=== PATIENT | female | born 1970 | race Caucasian/White ===

== ENCOUNTER 2020-02-24 11:27 | Inpatient (IN) | payer OTHER, SELFPAY ==
[2020-02-24] MEDS ORDERED: SODIUM CHLORIDE 0.9% 1000 ML IV SOLN IV ONE (12:02)
[2020-02-24] MEDS ORDERED: ACETAMINOPHEN 325 MG TAB PO ONE (12:03)
[2020-02-24] MEDS ORDERED: ACETAMINOPHEN 325 MG TAB ONE (12:04)
--- NOTE | 2020-02-24 12:05 | Event Note ---
ED Screening Note ED Screening Note: Patient presents for cough, fever, chest pain, shortness of breath, nausea, vomiting, diarrhea Symptoms have been ongoing for 2 to 3 weeks This initial assessment/diagnostic orders/clinical plan/treatment(s) is/are subject to change based on patients health status, clinical progression and re- assessment by fellow clinical providers in the ED. Further treatment and workup at subsequent clinical providers discretion. Patient/guardian urged not to elope from the ED as their condition may be serious if not clinically assessed and managed. Initial orders include: Febrile, tachycardic, hypoxic at 94% Sepsis and Covid order set placed Contact/droplet precautions
[2020-02-24] MEDS ORDERED: AZITHROMYCIN 500 MG in SODIUM CHLORIDE 0.9% 250ML 250 ML IV ONE (12:15)
[2020-02-24] MEDS ORDERED: methylPREDNISolone Sod Succinate 125 MG/2 ML INJ IV ONE (12:15)
[2020-02-24] MEDS ORDERED: cefTRIAXone/NS 1 GM/50 ML 1 GM/50 ML BAG IV ONE (12:15)
[2020-02-24 12:22] LABS: Basophils % (Auto) 0.3 % (0.0-1.8); Hematocrit 34.5 % (30.3-42.9); Lymphocytes # (Auto) 1.3 K/mm3 (1.2-5.4); Lymphocytes % (Auto) 18.8 % (13.4-35.0); Mean Corpuscular HGB Conc 35 % (30-34); Mean Corpuscular Volume 89 fl (79-97); Monocytes # (Auto) 0.3 K/mm3 (0.0-0.8); Monocytes % (Auto) 4.3 % (0.0-7.3); Platelet Count 190 K/mm3 (140-440); Red Blood Count 3.88 M/mm3 (3.65-5.03); Red Cell Distribution Width 13.7 % (13.2-15.2)
[2020-02-24 12:44] LABS: Alanine Aminotransferase 38 units/L (7-56); Blood Urea Nitrogen 13 mg/dL (7-17); Calcium 9.3 mg/dL (8.4-10.2); Hemolysis Index 2
[2020-02-24 12:48] LABS: BUN/Creatinine Ratio 22
--- NOTE | 2020-02-24 13:29 | XRay Report ---
CHEST PA AND LATERAL VIEWS INDICATION: fever, cough, SOB. COMPARISON: None. FINDINGS: Support devices: None. Heart: Within normal limits. Lungs/Pleura: There are somewhat patchy bilateral pulmonary opacities with relative sparing of the ap ices. No pleural abnormality. IMPRESSION: 1. Patchy bilateral pulmonary opacities are concerning for infection/pneumonia. Atypical/viral etiolo gies should be considered. Signer Name: Farooq Cavazos MD Signed: 02/24/2020 1:24 PM Workstation Name: [id number]
--- NOTE | 2020-02-24 15:13 | History and Physical Report ---
History of Present Illness Chief complaint: I cannot breathe History of present illness: 50 YO Female with Obesity Hypoventilation Syndrome presents to ED for evaluation. Patient states that she has "been feeling sick" for the past 2 weeks with persistent symptoms over the same timeframe. Patient was seen and evaluated by her primary care physician and treated with oral antibiotics for outpatient pneumonia. Patient states that she has experienced persistent symptoms in spite of of compliance with medication. Patient reports fever, dry cough, shortness of breath, decreased exercise tolerance, nausea, multiple episodes of vomiting, multiple loose stools, loss of sense of smell, loss of sense of taste, fatigue, malaise, body aches. Patient transported to [facility] via private vehicle for further care and evaluation of the aforementioned symptoms. Patient seen and evaluated in the emergency department. All lab and imaging studies reviewed. Patient found to have a fever to 102.1 F, as well as a pulse oximetry of 88% with exertion on room air which is consistent with acute hypoxemic respiratory failure. Patient underwent chest x-ray which revealed bilateral pneumonia. Patient admitted to medical floor and initiated on pneumonia protocol as well as coronavirus protocol. Coronavirus PCR ordered in the emergency department and is pending at time of admission. Patient acknowledges fever, but denies chest pain, palpitation, skin rash, recent ill contacts, trauma, or known exposure to COVID-19. No medication listed at time of admission. No prior admission for review. Past History Past Medical History: other (See HPI) Past Surgical History: No surgical history, Other (Reviewed) Social history: single. denies: smoking, alcohol abuse, prescription drug abuse Family history: no significant family history (Reviewed) Medications and Allergies Allergies Allergy/AdvReac Type Severity Reaction Status Date / Time No Known Allergies Allergy Verified 02/24/20 11:59 Review of Systems Constitutional: fever, fatigue, weakness, malaise Ears, nose, mouth and throat: no ear pain, no ear discharge, no tinnitis, no decreased hearing, no nose pain Breasts: no change in shape, no swelling, no mass Cardiovascular: shortness of breath, no chest pain, no palpitations, no rapid/irregular heart beat, no lightheadedness Respiratory: cough, shortness of breath, no excessive sputum, no hemoptysis Gastrointestinal: nausea, vomiting, diarrhea, no constipation, no hematemesis, n o BRBPR, no melena, no hematochezia Genitourinary Female: no pelvic pain, no flank pain, no dysuria, no urinary frequency, no urgency Rectal: no pain, no incontinence, no bleeding Musculoskeletal: no neck stiffness, no neck pain, no shooting arm pain, no arm numbness/tingling, no low back pain Integumentary: no rash, no pruritis, no redness, no sores, no wounds Neurological: no transient paralysis, no paralysis, no weakness, no parathesias, no numbness Psychiatric: no anxiety, no memory loss, no change in sleep habits, no sleep disturbances, no insomnia Endocrine: no cold intolerance, no heat intolerance, no polyphagia, no excessive thirst, no polydipsia, no polyuria, no nocturia Hematologic/Lymphatic: no easy bruising, no easy bleeding, no lymphadenopathy Allergic/Immunologic: no urticaria, no allergic rhinitis, no wheezing, no persistent infections Exam - Constitutional Vitals: Temp Pulse Resp BP Pulse Ox 102.1 F H 86 20 116/63 96 02/24/20 12:00 02/24/20 14:06 02/24/20 14:06 02/24/20 14:06 02/24/20 14:06 General appearance: Present: mild distress, obese - EENT Eyes: Present: PERRL ENT: hearing intact, clear oral mucosa - Neck Neck: Present: supple, normal ROM - Respiratory Respiratory effort: labored, accessory muscle use, stridor Respiratory: bilateral: diminished, rhonchi - Cardiovascular Heart Sounds: Present: S1 & S2. Absent: rub, click - Extremities Extremities: pulses symmetrical, No edema Peripheral Pulses: within normal limits - Abdominal General gastrointestinal: Present: soft, non-tender, non-distended, normal bowel sounds Female genitourinary: Present: normal - Integumentary Integumentary: Present: clear, warm, dry - Musculoskeletal Musculoskeletal: gait normal, strength equal bilaterally - Psychiatric Psychiatric: appropriate mood/affect, intact judgment & insight - Neurologic Neurologic: CNII-XII intact, moves all extremities Results - Labs CBC & Chem 7: 02/24/20 12:07 02/24/20 12:07 Labs: Abnormal lab results 02/24/20 02/24/20 02/24/20 Range/Units 12: 12: 12:07 MCHC 35 H (30-34) % Seg Neutrophils % 76.6 H (40.0-70.0) % D-Dimer 236.88 H (0-234) ng/mlDDU Potassium 3.4 L (3.6-5.0) mmol/L Glucose (65-100) mg/dL Ferritin (10.0-200.0) ng/mL AST 42 H (5-40) units/L Lactate Dehydrogenase (91-180) units/L C-Reactive Protein (0.00-1.30) mg/dL 02/24/20 02/24/20 Range/Units 12:07 12:07 MCHC (30-34) % Seg Neutrophils % (40.0-70.0) % D-Dimer (0-234) ng/mlDDU Potassium (3.6-5.0) mmol/L Glucose 101 H (65-100) mg/dL Ferritin 200.8 H (10.0-200.0) ng/mL AST (5-40) units/L Lactate Dehydrogenase 315 H (91-180) units/L C-Reactive Protein 12.00 H (0.00-1.30) mg/dL Assessment and Plan - Patient Problems (1) Acute hypoxemic respiratory failure Current Visit: Yes Status: Acute Plan to address problem: Chest x-ray, supplemental oxygen, nebulizer therapy, prone positioning while in bed, pulmonary toilet, ambulate 3 times daily and as needed. Noninvasive positive pressure ventilation as clinically indicated. If patient is unable to main pulse oximetry with supplemental oxygen will then escalate care with the use of high flow supplemental oxygen. (2) Suspected 2019-nCoV infection Current Visit: Yes Status: Acute Plan to address problem: Coronavirus protocol: Coronavirus PCR ordered and is pending at time of admission, contact precautions, isolation precautions, prone positioning while in bed, pulmonary toilet, IV steroid therapy, IV antibiotic therapy, supplemental oxygen, pulse oximetry. (3) Pneumonia Current Visit: Yes Status: Acute Qualifiers: Laterality: bilateral Plan to address problem: Pneumonia protocol: Chest x-ray, CBC, CMP, supplemental oxygen, nebulizer therapy, pulse oximetry, IV antibiotic therapy, pulmonary toilet, blood culture. (4) Obesity hypoventilation syndrome Current Visit: Yes Status: Acute Plan to address problem: Supplemental oxygen, pulse oximetry, nebulizer therapy, noninvasive positive pressure ventilation as clinically indicated, outpatient pulmonary follow-up for sleep study. (5) DVT prophylaxis Current Visit: Yes Status: Acute Plan to address problem: SCD to bilateral lower extremities while in bed, prophylactic anticoagulation
[2020-02-24] MEDS ORDERED: ONDANSETRON 4 MG/2 ML INJ IV PRN (15:14)
[2020-02-24] MEDS ORDERED: ALBUTEROL 2.5 MG/3 ML NEBU IH PRN (15:14)
--- NOTE | 2020-02-24 18:05 | Emergency Department Report ---
ED Fever HPI - General Chief Complaint: Upper Respiratory Infection Stated Complaint: CHEST PAIN/COUGH PUI?: Yes Time Seen by Provider: 02/24/20 12:11 Source: patient Exam Limitations: no limitations - History of Present Illness Initial Comments: Chief complaint: "My chest hurt. I cannot breathe. I just feel bad." History obtained using Khmer language line biztalk consultant via phone. HPI: This is a 50-year-old female who was referred from clinic today for pneumonia. For the past 15 days she has had fever productive cough shortness of breath chest pain body aches headache. No known sick contacts. Chest pain is dull exacerbated by cough. Timing/Duration: other (15 days) Fever Severity/Quality: greater than 102 F Associated Symptoms: chest pain, cough, headache, muscle aches, other (Diarrhea) ED Review of Systems ROS: Stated complaint: CHEST PAIN/COUGH Other details as noted in HPI Comment: All other systems reviewed and negative Constitutional: chills, fever, malaise ENT: congestion Respiratory: cough, shortness of breath Cardiovascular: chest pain Gastrointestinal: abdominal pain, diarrhea ED Past Medical Hx - Past Medical History Previous Medical History?: No Additional medical history: Obesity - Social History Smoking Status: Never Smoker - Medications Home Medications: Home Medications Medication Instructions Recorded Confirmed Last Taken Type No Known Home Medications [No 02/24/20 02/24/20 Unknown History Reported Home Medications] ED Physical Exam - General Limitations: Language Barrier General appearance: alert, other (Appears mildly ill, appears uncomfortable) - Head Head exam: Present: atraumatic, normocephalic - Eye Eye exam: Present: normal appearance - ENT ENT exam: Present: mucous membranes moist - Neck Neck exam: Present: normal inspection, full ROM - Respiratory Respiratory exam: Present: respiratory distress, decreased breath sounds, other (Increased respiratory rate mild work of breathing). Absent: wheezes, rales, rhonchi - Cardiovascular Cardiovascular Exam: Present: normal rhythm, tachycardia, normal heart sounds. Absent: systolic murmur, diastolic murmur, rubs, gallop - GI/Abdominal GI/Abdominal exam: Present: soft, normal bowel sounds. Absent: distended, tenderness, guarding, rebound - Extremities Exam Extremities exam: Present: normal inspection - Neurological Exam Neurological exam: Present: alert, oriented X3 - Psychiatric Psychiatric exam: Present: normal affect, normal mood - Skin Skin exam: Present: warm, dry, intact, normal color. Absent: rash ED Course Vital Signs 02/24/20 02/24/20 02/24/20 12:00 13:22 13:30 Temperature 102.1 F H Pulse Rate 102 H 90 Respiratory 18 23 Rate Blood Pressure 129/67 113/62 Blood Pressure [Right] O2 Sat by Pulse 93 94 96 Oximetry 02/24/20 02/24/20 02/24/20 14:06 14:16 15:16 Temperature Pulse Rate 86 85 88 Respiratory 20 28 H 15 Rate Blood Pressure 116/63 103/60 Blood Pressure 116/63 [Right] O2 Sat by Pulse 96 95 94 Oximetry ED Medical Decision Making - Lab Data Result diagrams: 02/24/20 12:07 02/24/20 12:07 Laboratory Results - last 24 hr 02/24/20 02/24/20 02/24/20 12:07 12:07 12:07 WBC 7.0 RBC 3.88 Hgb 12.0 Hct 34.5 MCV 89 MCH 31 MCHC 35 H RDW 13.7 Plt Count 190 Lymph % (Auto) 18.8 [place] % (Auto) 4.3 Eos % (Auto) 0.0 Baso % (Auto) 0.3 Lymph # (Auto) 1.3 [place] # (Auto) 0.3 Eos # (Auto) 0.0 Baso # (Auto) 0.0 Seg Neutrophils % 76.6 H Seg Neutrophils # 5.3 D-Dimer Sodium 139 Potassium 3.4 L Chloride 103.0 Carbon Dioxide 24 Anion Gap 15 BUN 13 Creatinine 0.6 Estimated GFR > 60 BUN/Creatinine Ratio 22 Glucose 100 Lactic Acid 0.90 Calcium 9.3 Ferritin Total Bilirubin 0.30 AST 42 H ALT 38 Alkaline Phosphatase 106 Lactate Dehydrogenase C-Reactive Protein Total Protein 8.0 Albumin 4.0 Albumin/Globulin Ratio 1.0 Procalcitonin 02/24/20 02/24/20 02/24/20 12:07 12:07 12:07 WBC RBC Hgb Hct MCV MCH MCHC RDW Plt Count Lymph % (Auto) [place] % (Auto) Eos % (Auto) Baso % (Auto) Lymph # (Auto) [place] # (Auto) Eos # (Auto) Baso # (Auto) Seg Neutrophils % Seg Neutrophils # D-Dimer 236.88 H Sodium Potassium Chloride Carbon Dioxide Anion Gap BUN Creatinine Estimated GFR BUN/Creatinine Ratio Glucose 101 H Lactic Acid Calcium Ferritin 200.8 H Total Bilirubin AST ALT Alkaline Phosphatase Lactate Dehydrogenase 315 H C-Reactive Protein 12.00 H Total Protein Albumin Albumin/Globulin Ratio Procalcitonin 02/24/20 02/24/20 12:07 14:31 WBC RBC Hgb Hct MCV MCH MCHC RDW Plt Count Lymph % (Auto) [place] % (Auto) Eos % (Auto) Baso % (Auto) Lymph # (Auto) [place] # (Auto) Eos # (Auto) Baso # (Auto) Seg Neutrophils % Seg Neutrophils # D-Dimer Sodium Potassium Chloride Carbon Dioxide Anion Gap BUN Creatinine Estimated GFR BUN/Creatinine Ratio Glucose Lactic Acid 1.00 Calcium Ferritin Total Bilirubin AST ALT Alkaline Phosphatase Lactate Dehydrogenase C-Reactive Protein Total Protein Albumin Albumin/Globulin Ratio Procalcitonin < 0.05 - Radiology Data Radiology results: report reviewed, image reviewed CHEST PA AND LATERAL VIEWS INDICATION: fever, cough, SOB. COMPARISON: None. FINDINGS: Support devices: None. Heart: Within normal limits. Lungs/Pleura: There are somewhat patchy bilateral pulmonary opacities with relative sparing of the apices. No pleural abnormality. IMPRESSION: 1. Patchy bilateral pulmonary opacities are concerning for infection/pneumonia. Atypical/viral etiologies should be considered. - Medical Decision Making Suspected COVID-19 infection with pneumonia. Patient received comfort with oxygen. Oxygen saturation room air 93% at rest. Patient received antibiotic steroids in the emergency department. She is admitted to the hospital service in fair condition. Critical care attestation.: If time is entered above; I have spent that time in minutes in the direct care of this critically ill patient, excluding procedure time. ED Disposition Clinical Impression: Acute hypoxemic respiratory failure, Suspected 2019-nCoV infection, Obesity hypoventilation syndrome Pneumonia Qualifiers: Laterality: bilateral Disposition: 09 OP ADMIT IP TO THIS HOSP Is pt being admited?: Yes Does the pt Need Aspirin: No
[2020-02-24] MEDS: methylPREDNISolone Sod Succinate 40 MG/1 ML INJ IV SCH (21:03)
[2020-02-24] MEDS: HEPARIN 5,000 UNIT/1 ML VIAL SUB-Q SCH (21:06)
[2020-02-24] MEDS: FAMOTIDINE 10 MG TAB PO SCH (21:06)
[2020-02-25] MEDS: methylPREDNISolone Sod Succinate 40 MG/1 ML INJ IV SCH ×3 (05:29→21:43)
[2020-02-25 05:55] LABS: Bacteria,Urine 1+ /HPF (Negative); Bilirubin,Urine NEG (Negative); Blood,Urine NEG (Negative); Color,Urine Yellow (Yellow); Mucus,Urine 1+ /HPF
[2020-02-25 06:02] LABS: Basophils % (Auto) 0.1 % (0.0-1.8); Hematocrit 32.1 % (30.3-42.9); Hemoglobin 10.8 gm/dl (10.1-14.3); Lymphocytes # (Auto) 1.1 K/mm3 (1.2-5.4); Lymphocytes % (Auto) 19.3 % (13.4-35.0); Mean Corpuscular HGB Conc 34 % (30-34); Mean Corpuscular Volume 91 fl (79-97); Monocytes # (Auto) 0.3 K/mm3 (0.0-0.8); Monocytes % (Auto) 5.6 % (0.0-7.3); Platelet Count 172 K/mm3 (140-440); Red Blood Count 3.53 M/mm3 (3.65-5.03)
[2020-02-25 06:07] LABS: Blood Urea Nitrogen 11 mg/dL (7-17); Calcium 8.6 mg/dL (8.4-10.2); Hemolysis Index 2
[2020-02-25 06:25] LABS: BUN/Creatinine Ratio 28
[2020-02-25] MEDS ORDERED: AZITHROMYCIN 250 MG TAB PO SCH (10:00)
[2020-02-25] MEDS ORDERED: AZITHROMYCIN 500 MG in SODIUM CHLORIDE 0.9% 250ML 250 ML IV SCH (10:00)
[2020-02-25] MEDS ORDERED: cefTRIAXone/NS 2 GM/100 ML 2 GM/100 ML BAG IV SCH (10:00)
--- NOTE | 2020-02-25 10:18 | Consultation ---
History of Present Illness - Reason for Consult Consult date: 02/25/20 r/o covid Requesting physician: TIMOTHY ANAYA - History of Present Illness 50 years old female with history of obesity, admitted on 02/24/2020 secondary to 2-week history of feeling sick with dry cough, fever, generalized malaise, shortness of breath, dyspnea on exertion, nausea, vomiting, diarrhea, loss of smell and taste. Patient was seen by her primary care physician who prescribed symptomatic treatment without any improvement. On arrival, temperature 102.1 8, HR 102, RR 18, O2 sat 93, BP 129/67. O2 sat dropped to 88% on ambulation. Initial WBC 7. Ferritin 200. D-dimer 236. CRP 12. Procalcitonin normal. Urinalysis negative. Creatinine 0.6. AST 42. Chest x-ray shows bilateral patchy infiltrates. Review of Systems: reviewed ED and H&P notes. Deferred to prevent COVID-19 transmission. Past History Past Medical History: other (See HPI) Past Surgical History: No surgical history, Other (Reviewed) Social history: single. denies: smoking, alcohol abuse, prescription drug abuse Family history: no significant family history (Reviewed) Medications and Allergies Allergies Allergy/AdvReac Type Severity Reaction Status Date / Time No Known Allergies Allergy Verified 02/24/20 11:59 Home Medications Medication Instructions Recorded Confirmed Last Taken Type No Known Home Medications [No 02/24/20 02/24/20 Unknown History Reported Home Medications] Active Meds: Active Medications Acetaminophen (Acetaminophen 325 Mg Tab) 650 mg PO Q4H PRN PRN Reason: Pain MILD(1-3)/Fever >100.5/DANGELO Albuterol (Albuterol 2.5 Mg/3 Ml Nebu) 2.5 mg IH Q4HRT PRN PRN Reason: Shortness Of Breath Azithromycin (Azithromycin 250 Mg Tab) 500 mg PO QDAY UTE Stop: 02/27/20 09:59 Famotidine (Famotidine 10 Mg Tab) 10 mg PO BID UTE Last Admin: 02/24/20 21:06 Dose: 10 mg Documented by: Heparin Sodium (Porcine) (Heparin 5,000 Unit/1 Ml Vial) 5,000 unit SUB-Q Q12HR UTE Last Admin: 02/24/20 21:06 Dose: 5,000 unit Documented by: Ceftriaxone Sodium (Rocephin/Ns 2 Gm/100 Ml) 2 gm in 100 mls @ 200 mls/hr IV Q24HR [facility]; Protocol Stop: 02/27/20 23:59 Methylprednisolone Sodium Succinate (Methylprednisolone Sod Succinate 40 Mg/1 Ml Inj) 40 mg IV Q8HR UTE Last Admin: 02/25/20 05:29 Dose: 40 mg Documented by: Ondansetron HCl (Ondansetron 4 Mg/2 Ml Inj) 4 mg IV Q8H PRN PRN Reason: Nausea And Vomiting Sodium Chloride (Sodium Chloride 0.9% 10 Ml Flush Syringe) 10 ml IV BID [facility] Last Admin: 02/24/20 21:22 Dose: 10 ml Documented by: Sodium Chloride (Sodium Chloride 0.9% 10 Ml Flush Syringe) 10 ml IV PRN PRN PRN Reason: LINE FLUSH Physical Examination - Physical Exam Narrative exam: Physical Exam: reviewed ED and hospitalist notes. Deferred to prevent COVID-19 transmission. - - Constitutional Vitals: Vital Signs Temp Pulse Resp BP Pulse Ox 98.5 F 66 20 109/69 98 02/25/20 04:38 02/25/20 04:38 02/25/20 04:38 02/25/20 04:38 02/25/20 04:38 Temperature -Last 24 Hours Temperature 98.5 F Temperature 98.8 F Temperature 102.1 F Results - Labs CBC & Chem 7: 02/25/20 05:16 02/25/20 05:16 Labs: Abnormal lab results 02/24/20 02/24/20 02/24/20 Range/Units 12:07 12:07 12:07 RBC (3.65-5.03) M/mm3 MCHC 35 H (30-34) % Lymph # (Auto) (1.2-5.4) K/mm3 Seg Neutrophils % 76.6 H (40.0-70.0) % D-Dimer 236.88 H (0-234) ng/mlDDU Potassium 3.4 L (3.6-5.0) mmol/L Chloride (98-107) mmol/L Creatinine (0.6-1.2) mg/dL Glucose (65-100) mg/dL POC Glucose (70-105) mg/dL Ferritin (10.0-200.0) ng/mL AST 42 H (5-40) units/L Lactate Dehydrogenase (91-180) units/L C-Reactive Protein (0.00-1.30) mg/dL 02/24/20 02/24/20 02/25/20 Range/Units 12:07 12:07 05:16 RBC 3.53 L (3.65-5.03) M/mm3 MCHC (30-34) % Lymph # (Auto) 1.1 L (1.2-5.4) K/mm3 Seg Neutrophils % 75.0 H (40.0-70.0) % D-Dimer (0-234) ng/mlDDU Potassium (3.6-5.0) mmol/L Chloride (98-107) mmol/L Creatinine (0.6-1.2) mg/dL Glucose 101 H (65-100) mg/dL POC Glucose (70-105) mg/dL Ferritin 200.8 H (10.0-200.0) ng/mL AST (5-40) units/L Lactate Dehydrogenase 315 H (91-180) units/L C-Reactive Protein 12.00 H (0.00-1.30) mg/dL 02/25/20 02/25/20 Range/Units 05:16 08:21 RBC (3.65-5.03) M/mm3 MCHC (30-34) % Lymph # (Auto) (1.2-5.4) K/mm3 Seg Neutrophils % (40.0-70.0) % D-Dimer (0-234) ng/mlDDU Potassium (3.6-5.0) mmol/L Chloride 109.8 H (98-107) mmol/L Creatinine 0.4 L (0.6-1.2) mg/dL Glucose 143 H (65-100) mg/dL POC Glucose 123 H (70-105) mg/dL Ferritin (10.0-200.0) ng/mL AST (5-40) units/L Lactate Dehydrogenase (91-180) units/L C-Reactive Protein (0.00-1.30) mg/dL Assessment and Plan Cultures: Blood culture pending SARS CoV2 PCR pending Assessment: 50 years old female with history of obesity, admitted on 02/24/2020 secondary to 2-week history of feeling sick with dry cough, fever, generalized malaise, shortness of breath, dyspnea on exertion, nausea, vomiting, diarrhea, loss of smell and taste: #Severe sepsis: Present with high fever, tachycardia, hypoxia likely due to bilateral pneumonia. #Presumed Severe COVID pneumonia: Chest x-ray with bilateral patchy infiltrates. Inflammatory markers elevated. Procalcitonin normal. #Acute hypoxemic respiratory failure: O2 sats dropped to 93%, and no pop ambulation to 88%. Currently on 3 L nasal cannula #Elevated LFTs: from COVID #Obesity: Associated with worse outcomes. Recommendations: -Follow up SARS-CoV-2 PCR -Obtain SARS-CoV-2 IgG -Patient started on Solu-Medrol -If SARS-CoV-2 PCR is positive start Remdesivir for 5 days -Monitor inflammatory markers - ferritin, Ddimer, CRP, LDH -Stop ceftriaxone and azithromycin, procalcitonin <0.25 ng/mL -Monitor liver function test on Remdesivir -Continue anticoagulation per System Protocol -Prone positioning as possible All laboratory, cultures and imaging were reviewed. Will follow Mar Reyna MD Infectious Diseases [employer] [facility] [facility] ([facility] M [phone] O [phone]
[2020-02-25] MEDS: FAMOTIDINE 10 MG TAB PO SCH ×2 (10:39→21:43)
[2020-02-25] MEDS: HEPARIN 5,000 UNIT/1 ML VIAL SUB-Q SCH ×2 (10:39→21:45)
--- NOTE | 2020-02-25 13:54 | Consultation ---
History of Present Illness Consult date: 02/25/20 Requesting physician: TIMOTHY ANAYA History of present illness: 50 years old female with history of obesity, admitted on 02/24/2020 secondary to 2-week history of feeling sick with dry cough, fever, generalized malaise, shortness of breath, dyspnea on exertion, nausea, vomiting, diarrhea, loss of smell and taste. Patient was seen by her primary care physician who prescribed symptomatic treatment without any improvement. On arrival, temperature 102.1 8, HR 102, RR 18, O2 sat 93, BP 129/67. O2 sat dropped to 88% on ambulation. Initial WBC 7. Ferritin 200. D-dimer 236. CRP 12. Procalcitonin normal. Urinalysis negative. Creatinine 0.6. AST 42. Chest x-ray shows bilateral patchy infiltrates. I was consulted for PUI-COVID and acute hypoxemic respiratory failure. Patient seen and examined. Vitals labs, medications, chart and imaging reviewed. She complains of pain in her lungs at the back. Past History Past Medical History: other (See HPI) Past Surgical History: No surgical history, Other (Reviewed) Social history: single. denies: smoking, alcohol abuse, prescription drug abuse Family history: no significant family history (Reviewed) Medications and Allergies Allergies Allergy/AdvReac Type Severity Reaction Status Date / Time No Known Allergies Allergy Verified 02/24/20 11:59 Home Medications Medication Instructions Recorded Confirmed Last Taken Type No Known Home Medications [No 02/24/20 02/24/20 Unknown History Reported Home Medications] Active Meds: Active Medications Acetaminophen (Acetaminophen 325 Mg Tab) 650 mg PO Q4H PRN PRN Reason: Pain MILD(1-3)/Fever >100.5/DANGELO Albuterol (Albuterol 2.5 Mg/3 Ml Nebu) 2.5 mg IH Q4HRT PRN PRN Reason: Shortness Of Breath Famotidine (Famotidine 10 Mg Tab) 10 mg PO BID [facility] Last Admin: 02/25/20 10:39 Dose: 10 mg Documented by: Heparin Sodium (Porcine) (Heparin 5,000 Unit/1 Ml Vial) 5,000 unit SUB-Q Q12HR UTE Last Admin: 02/25/20 10:39 Dose: 5,000 unit Documented by: Methylprednisolone Sodium Succinate (Methylprednisolone Sod Succinate 40 Mg/1 Ml Inj) 40 mg IV Q8HR [facility] Last Admin: 02/25/20 05:29 Dose: 40 mg Documented by: Ondansetron HCl (Ondansetron 4 Mg/2 Ml Inj) 4 mg IV Q8H PRN PRN Reason: Nausea And Vomiting Sodium Chloride (Sodium Chloride 0.9% 10 Ml Flush Syringe) 10 ml IV BID [facility] Last Admin: 02/25/20 10:39 Dose: 10 ml Documented by: Sodium Chloride (Sodium Chloride 0.9% 10 Ml Flush Syringe) 10 ml IV PRN PRN PRN Reason: LINE FLUSH Review of Systems Constitutional: fever, chills, no weight loss, no weight gain, no sweats, no night sweats Cardiovascular: shortness of breath, no chest pain, no orthopnea, no palpitat ions, no edema, no syncope, no lightheadedness Respiratory: shortness of breath, dyspnea on exertion, pain Gastrointestinal: nausea, no vomiting, no diarrhea, no change in bowel habits, no hematemesis, no coffee ground emesis Musculoskeletal: no neck stiffness, no neck pain, no arm numbness/tingling, no low back pain, no shooting leg pain Neurological: no head injury, no weakness, no parathesias, no numbness, no seizures Psychiatric: anxiety, change in appetite, no memory loss, no change in sleep habits, no change in libido, no suicidal ideation Physical Examination Vital signs: Vital Signs Temp Pulse Resp BP Pulse Ox 102.1 F H 102 H 18 129/67 93 02/24/20 12:00 02/24/20 12:00 02/24/20 12:00 02/24/20 12:00 02/24/20 12:00 Limitations: Language Barrier General appearance: alert, other (Appears mildly ill, appears uncomfortable) - Head Head exam: Present: atraumatic, normocephalic - Eye Eye exam: Present: normal appearance - ENT ENT exam: Present: mucous membranes moist - Neck Neck exam: Present: normal inspection, full ROM - Respiratory Respiratory exam: Present: respiratory distress, decreased breath sounds, other (Increased respiratory rate mild work of breathing). Absent: wheezes, rales, rhonchi - Cardiovascular Cardiovascular Exam: Present: normal rhythm, tachycardia, normal heart sounds. Absent: systolic murmur, diastolic murmur, rubs, gallop - GI/Abdominal GI/Abdominal exam: Present: soft, normal bowel sounds. Absent: distended, tenderness, guarding, rebound - Extremities Exam Extremities exam: Present: normal inspection - Neurological Exam Neurological exam: Present: alert, oriented X3 - Psychiatric Psychiatric exam: Present: normal affect, normal mood - Skin Skin exam: Present: warm, dry, intact, normal color. Absent: rash Results - Laboratory Findings CBC and BMP: 03/01/20 05:23 03/01/20 05:23 PT/INR, D-dimer D-Dimer 236.88 ng/mlDDU (0-234) H 02/24/20 12:07 Abnormal lab findings: Abnormal Labs 02/24/20 02/24/20 02/24/20 12:07 12:07 12:07 RBC MCHC 35 H Lymph # (Auto) Seg Neutrophils % 76.6 H D-Dimer 236.88 H Potassium 3.4 L Chloride Creatinine Glucose POC Glucose Ferritin AST 42 H Lactate Dehydrogenase C-Reactive Protein 02/24/20 02/24/20 02/25/20 12:07 12:07 05:16 RBC 3.53 L MCHC Lymph # (Auto) 1.1 L Seg Neutrophils % 75.0 H D-Dimer Potassium Chloride Creatinine Glucose 101 H POC Glucose Ferritin 200.8 H AST Lactate Dehydrogenase 315 H C-Reactive Protein 12.00 H 02/25/20 02/25/20 02/25/20 05:16 08:21 11:52 RBC MCHC Lymph # (Auto) Seg Neutrophils % D-Dimer Potassium Chloride 109.8 H Creatinine 0.4 L Glucose 143 H POC Glucose 123 H 133 H Ferritin AST Lactate Dehydrogenase C-Reactive Protein Assessment and Plan PUI-COVID -clinically and radiographically consistent with COVID infection await SARS-CoV-2 PCR -Obtain SARS-CoV-2 IgG Acute hypoxemic respiratory failure Severe sepsis: Present on admission with low-grade fever, tachycardia, hypoxia, likely due to bilateral pneumonia. Bilateral pneumonia Morbid obesity RECOMMENDATIONS Supplemental oxygen to keep O2 sats>90% Bronchodilators with pulmonary hygiene per RT Accuchecks with glycemic control per SSI (While critically ill target blood glucose of 140-180 mg/dL; avoid hypoglycemia) Monitor liver function test Avoid nephrotoxins, conservative fluid management Maintenance of sleep-wake cycle, avoid delirium CXR, ABG in 48 hours to monitor alveolar infiltrates and P/F ratio CBC, BMP as clinically indicated Accuchecks with glycemic control. Keep blood glucose <180mg/dL, avoid hypo glycemia Monitor hemodynamics closely Continue steroids: on Solumedrol VTE prophylaxis Pain management Continue contact and airborne isolation per facility protocol Procalcitonin normal. Empiric antibiotics for CAP, discontinued .... Re-evaluate in am & prn .... Continue other care per attending / other consultants CONDITION: CRITICAL PROGNOSIS: GUARDED CODE STATUS: FULL CODE The high probability of a clinically significant, sudden or life-threatening deterioration of the [respiratory] system(s) required my full and direct attention, intervention and personal management. The aggregate critical care time was [32] minutes without overlap. Time includes spent on; [x] Data Review and interpretation [x] Patient assessment and monitoring of vital signs [x] Documentation [x] Medication orders and management
[2020-02-25 15:24] LABS: C-Reactive Protein 6.1 mg/dL (0.00-1.30)
[2020-02-25] MEDS: ACETAMINOPHEN 325 MG TAB PO PRN (18:44)
--- NOTE | 2020-02-25 20:51 | Progress Note ---
Assessment and Plan - Patient Problems (1) Acute hypoxemic respiratory failure Current Visit: Yes Status: Acute Plan to address problem: Chest x-ray, supplemental oxygen, nebulizer therapy, prone positioning while in bed, pulmonary toilet, ambulate 3 times daily and as needed. Noninvasive positive pressure ventilation as clinically indicated. If patient is unable to main pulse oximetry with supplemental oxygen will then escalate care with the use of high flow supplemental oxygen. (2) Suspected 2019-nCoV infection Current Visit: Yes Status: Acute Plan to address problem: Coronavirus protocol: Coronavirus PCR ordered and is pending, contact precaut ions, isolation precautions, prone positioning while in bed, pulmonary toilet, IV steroid therapy, IV antibiotic therapy, supplemental oxygen, pulse oximetry. (3) Pneumonia Current Visit: Yes Status: Acute Qualifiers: Laterality: bilateral Plan to address problem: Pneumonia protocol: Chest x-ray, CBC, CMP, supplemental oxygen, nebulizer therapy, pulse oximetry, IV antibiotic therapy, pulmonary toilet, blood culture. (4) Obesity hypoventilation syndrome Current Visit: Yes Status: Acute Plan to address problem: Supplemental oxygen, pulse oximetry, nebulizer therapy, noninvasive positive pressure ventilation as clinically indicated, outpatient pulmonary follow-up for sleep study. (5) DVT prophylaxis Current Visit: Yes Status: Acute Plan to address problem: SCD to bilateral lower extremities while in bed, prophylactic anticoagulation History Interval history: 50 YO Female HD #2 with Obesity Hypoventilation Syndrome, acute hypoxemic respiratory failure, bilateral pneumonia, suspected coronavirus infection. Patient convalesced well overnight. Patient acknowledges shortness of breath. Patient knowledges continued dry cough. No reported nursing events. Patient denies pain. Hospitalist Physical - Constitutional Vitals: Temp Pulse Resp BP Pulse Ox 98.9 F 77 17 108/55 97 02/25/20 12:57 02/25/20 12:57 02/25/20 12:57 02/25/20 12:57 02/25/20 12:57 General appearance: Present: mild distress, obese - EENT Eyes: Present: PERRL ENT: hearing intact - Neck Neck: Present: supple - Respiratory Respiratory effort: labored, accessory muscle use Respiratory: bilateral: diminished, rhonchi - Cardiovascular Rhythm: regular Heart Sounds: Present: S1 & S2 - Extremities Extremities: no ischemia Extremity abnormal: edema Peripheral Pulses: within normal limits - Abdominal General gastrointestinal: soft, non-tender, non-distended - Integumentary Integumentary: Present: clear, dry - Psychiatric Psychiatric: appropriate mood/affect, cooperative - Neurologic Neurologic: CNII-XII intact Results - Labs CBC & Chem 7: 02/25/20 05:16 02/25/20 14:21 Labs: Laboratory Last Values WBC 5.5 K/mm3 (4.5-11.0) 02/25/20 05:16 RBC 3.53 M/mm3 (3.65-5.03) L 02/25/20 05:16 Hgb 10.8 gm/dl (10.1-14.3) 02/25/20 05:16 Hct 32.1 % (30.3-42.9) 02/25/20 05:16 MCV 91 fl (79-97) 02/25/20 05:16 MCH 31 pg (28-32) 02/25/20 05:16 MCHC 34 % (30-34) 02/25/20 05:16 RDW 14.0 % (13.2-15.2) 02/25/20 05:16 Plt Count 172 K/mm3 (140-440) 02/25/20 05:16 Lymph % (Auto) 19.3 % (13.4-35.0) 02/25/20 05:16 [place] % (Auto) 5.6 % (0.0-7.3) 02/25/20 05:16 Eos % (Auto) 0.0 % (0.0-4.3) 02/25/20 05:16 Baso % (Auto) 0.1 % (0.0-1.8) 02/25/20 05:16 Lymph # (Auto) 1.1 K/mm3 (1.2-5.4) L 02/25/20 05:16 [place] # (Auto) 0.3 K/mm3 (0.0-0.8) 02/25/20 05:16 Eos # (Auto) 0.0 K/mm3 (0.0-0.4) 02/25/20 05:16 Baso # (Auto) 0.0 K/mm3 (0.0-0.1) 02/25/20 05:16 Seg Neutrophils % 75.0 % (40.0-70.0) H 02/25/20 05:16 Seg Neutrophils # 4.1 K/mm3 (1.8-7.7) 02/25/20 05:16 D-Dimer 396.96 ng/mlDDU (0-234) H 02/25/20 14:21 Sodium 140 mmol/L (137-145) 02/25/20 05:16 Potassium 3.7 mmol/L (3.6-5.0) 02/25/20 05:16 Chloride 109.8 mmol/L (98-107) H 02/25/20 05:16 Carbon Dioxide 22 mmol/L (22-30) 02/25/20 05:16 Anion Gap 12 mmol/L 02/25/20 05:16 BUN 11 mg/dL (7-17) 02/25/20 05:16 Creatinine 0.4 mg/dL (0.6-1.2) L 02/25/20 05:16 Estimated GFR > 60 ml/min 02/25/20 05:16 BUN/Creatinine Ratio 28 % 02/25/20 05:16 Glucose 163 mg/dL (65-100) H 02/25/20 14:21 POC Glucose 124 mg/dL (70-105) H 02/25/20 16:17 Lactic Acid 1.00 mmol/L (0.7-2.0) 02/24/20 14:31 Calcium 8.6 mg/dL (8.4-10.2) 02/25/20 05:16 Ferritin 335.1 ng/mL (10.0-200.0) H 02/25/20 14:21 Total Bilirubin 0.30 mg/dL (0.1-1.2) 02/24/20 12:07 AST 42 units/L (5-40) H 02/24/20 12:07 ALT 38 units/L (7-56) 02/24/20 12:07 Alkaline Phosphatase 106 units/L (35-129) 02/24/20 12:07 Lactate Dehydrogenase 406 units/L (91-180) H 02/25/20 14:21 C-Reactive Protein 6.10 mg/dL (0.00-1.30) H 02/25/20 14:21 Total Protein 8.0 g/dL (6.3-8.2) 02/24/20 12:07 Albumin 4.0 g/dL (3.9-5) 02/24/20 12:07 Albumin/Globulin Ratio 1.0 % 02/24/20 12:07 Procalcitonin < 0.05 ng/mL (<0.15) 02/24/20 12:07 Urine Color Yellow (Yellow) 02/24/20 Unknown Urine Turbidity Clear (Clear) 02/24/20 Unknown Urine pH 6.0 (5.0-7.0) 02/24/20 Unknown Ur Specific [place] 1.023 (1.003-1.030) 02/24/20 Unknown Urine Protein 100 mg/dl mg/dL (Negative) 02/24/20 Unknown Urine Glucose (UA) Neg mg/dL (Negative) 02/24/20 Unknown Urine Ketones Neg mg/dL (Negative) 02/24/20 Unknown Urine Blood Neg (Negative) 02/24/20 Unknown Urine Nitrite Neg (Negative) 02/24/20 Unknown Urine Bilirubin Neg (Negative) 02/24/20 Unknown Urine Urobilinogen 2.0 mg/dL (<2.0) 02/24/20 Unknown Ur Leukocyte Esterase Neg (Negative) 02/24/20 Unknown Urine WBC (Auto) 4.0 /HPF (0.0-6.0) 02/24/20 Unknown Urine RBC (Auto) 2.0 /HPF (0.0-6.0) 02/24/20 Unknown U Epithel Cells (Auto) 3.0 /HPF (0-13.0) 02/24/20 Unknown Urine Bacteria (Auto) 1+ /HPF (Negative) 02/24/20 Unknown Urine Mucus 1+ /HPF 02/24/20 Unknown Microbiology: Microbiology 02/24/20 12:07 Peripheral/Venous Blood Culture - Preliminary NO GROWTH AFTER 24 HOURS 02/24/20 12:07 Peripheral/Venous Blood Culture - Preliminary NO GROWTH AFTER 24 HOURS [place]/IV: Voiding Method Toilet IV Catheter Type [Right INT / Saline Lock Antecubital] Active Medications - Current Medications Current Medications: Generic Name Dose Route Start Last Admin Trade Name Freq PRN Reason Stop Dose Admin Acetaminophen 650 mg 02/24/20 15:14 02/25/20 18:44 Acetaminophen 325 Mg Tab PO 650 mg Q4H PRN Administration Pain MILD(1-3)/Fever >100.5/DANGELO Albuterol 2.5 mg 02/24/20 15:14 Albuterol 2.5 Mg/3 Ml Nebu IH Q4HRT PRN Shortness Of Breath Benzonatate 100 mg 02/25/20 22:00 Benzonatate 100 Mg Cap PO BID UTE Famotidine 10 mg 02/24/20 22:00 02/25/20 10:39 Famotidine 10 Mg Tab PO 10 mg BID UTE Administration Heparin Sodium (Porcine) 5,000 unit 02/24/20 22:00 02/25/20 10:39 Heparin 5,000 Unit/1 Ml Vial SUB-Q 5,000 unit Q12HR UTE Administration Methylprednisolone Sodium Succinate 40 mg 02/24/20 22:00 02/25/20 17:26 Methylprednisolone Sod Succinate 40 Mg/1 Ml Inj IV 40 mg Q8HR UTE Administration Ondansetron HCl 4 mg 02/24/20 15:14 Ondansetron 4 Mg/2 Ml Inj IV Q8H PRN Nausea And Vomiting Sodium Chloride 10 ml 02/24/20 22:00 02/25/20 10:39 Sodium Chloride 0.9% 10 Ml Flush Syringe IV 10 ml BID UTE Administration Sodium Chloride 10 ml 02/24/20 15:14 Sodium Chloride 0.9% 10 Ml Flush Syringe IV PRN PRN LINE FLUSH
[2020-02-25] MEDS: BENZONATATE 100 MG CAP PO SCH (21:43)
[2020-02-26] MEDS: methylPREDNISolone Sod Succinate 40 MG/1 ML INJ IV SCH ×3 (05:59→21:37)
[2020-02-26] MEDS: BENZONATATE 100 MG CAP PO SCH ×2 (09:29→21:37)
[2020-02-26] MEDS: HEPARIN 5,000 UNIT/1 ML VIAL SUB-Q SCH ×2 (09:29→21:37)
[2020-02-26] MEDS: FAMOTIDINE 10 MG TAB PO SCH ×2 (09:29→21:36)
[2020-02-26] MEDS: HYDROcodone/HOMATROPINE 5-1.5MG /5 ML ORAL LIQD UNIT DOSE PO PRN ×2 (15:06→21:35)
--- NOTE | 2020-02-26 20:36 | Progress Note ---
Assessment and Plan - Patient Problems (1) Acute hypoxemic respiratory failure Current Visit: Yes Status: Acute Plan to address problem: Chest x-ray, supplemental oxygen, nebulizer therapy, prone positioning while in bed, pulmonary toilet, ambulate 3 times daily and as needed. Noninvasive positive pressure ventilation as clinically indicated. If patient is unable to main pulse oximetry with supplemental oxygen will then escalate care with the use of high flow supplemental oxygen. (2) Suspected 2019-nCoV infection Current Visit: Yes Status: Acute Plan to address problem: Coronavirus protocol: Coronavirus PCR ordered and is positive, contact precau tions, isolation precautions, prone positioning while in bed, pulmonary toilet, IV steroid therapy, IV antibiotic therapy, supplemental oxygen, pulse oximetry. (3) Pneumonia Current Visit: Yes Status: Acute Qualifiers: Laterality: bilateral Plan to address problem: Pneumonia protocol: Chest x-ray, CBC, CMP, supplemental oxygen, nebulizer therapy, pulse oximetry, IV antibiotic therapy, pulmonary toilet, blood culture. (4) Obesity hypoventilation syndrome Current Visit: Yes Status: Acute Plan to address problem: Supplemental oxygen, pulse oximetry, nebulizer therapy, noninvasive positive pressure ventilation as clinically indicated, outpatient pulmonary follow-up for sleep study. (5) DVT prophylaxis Current Visit: Yes Status: Acute Plan to address problem: SCD to bilateral lower extremities while in bed, prophylactic anticoagulation History Interval history: 50 YO Female HD #3 with Obesity Hypoventilation Syndrome, acute hypoxemic respiratory failure, bilateral pneumonia, coronavirus infection. Patient convalesced well overnight. Patient acknowledges shortness of breath. Patient acknowledges continued dry cough. No reported nursing events. Patient denies pain. Hospitalist Physical - Constitutional Vitals: Temp Pulse Resp BP Pulse Ox 99.9 F H 89 20 132/68 95 02/26/20 16:13 02/26/20 16:13 02/26/20 16:13 02/26/20 16:13 02/26/20 16:13 General appearance: Present: mild distress, obese - EENT Eyes: Present: PERRL, EOM intact ENT: hearing intact - Neck Neck: Present: supple - Respiratory Respiratory effort: labored Respiratory: bilateral: diminished, rhonchi - Cardiovascular Rhythm: regular Heart Sounds: Present: S1 & S2 - Extremities Extremities: no ischemia Peripheral Pulses: within normal limits - Abdominal General gastrointestinal: soft, non-tender, non-distended - Integumentary Integumentary: Present: clear, dry - Psychiatric Psychiatric: appropriate mood/affect, cooperative - Neurologic Neurologic: CNII-XII intact Results - Labs CBC & Chem 7: 02/25/20 05:16 02/25/20 14:21 Labs: Laboratory Last Values WBC 5.5 K/mm3 (4.5-11.0) 02/25/20 05:16 RBC 3.53 M/mm3 (3.65-5.03) L 02/25/20 05:16 Hgb 10.8 gm/dl (10.1-14.3) 02/25/20 05:16 Hct 32.1 % (30.3-42.9) 02/25/20 05:16 MCV 91 fl (79-97) 02/25/20 05:16 MCH 31 pg (28-32) 02/25/20 05:16 MCHC 34 % (30-34) 02/25/20 05:16 RDW 14.0 % (13.2-15.2) 02/25/20 05:16 Plt Count 172 K/mm3 (140-440) 02/25/20 05:16 Lymph % (Auto) 19.3 % (13.4-35.0) 02/25/20 05:16 [place] % (Auto) 5.6 % (0.0-7.3) 02/25/20 05:16 Eos % (Auto) 0.0 % (0.0-4.3) 02/25/20 05:16 Baso % (Auto) 0.1 % (0.0-1.8) 02/25/20 05:16 Lymph # (Auto) 1.1 K/mm3 (1.2-5.4) L 02/25/20 05:16 [place] # (Auto) 0.3 K/mm3 (0.0-0.8) 02/25/20 05:16 Eos # (Auto) 0.0 K/mm3 (0.0-0.4) 02/25/20 05:16 Baso # (Auto) 0.0 K/mm3 (0.0-0.1) 02/25/20 05:16 Seg Neutrophils % 75.0 % (40.0-70.0) H 02/25/20 05:16 Seg Neutrophils # 4.1 K/mm3 (1.8-7.7) 02/25/20 05:16 D-Dimer 396.96 ng/mlDDU (0-234) H 02/25/20 14:21 Sodium 140 mmol/L (137-145) 02/25/20 05:16 Potassium 3.7 mmol/L (3.6-5.0) 02/25/20 05:16 Chloride 109.8 mmol/L (98-107) H 02/25/20 05:16 Carbon Dioxide 22 mmol/L (22-30) 02/25/20 05:16 Anion Gap 12 mmol/L 02/25/20 05:16 BUN 11 mg/dL (7-17) 02/25/20 05:16 Creatinine 0.4 mg/dL (0.6-1.2) L 02/25/20 05:16 Estimated GFR > 60 ml/min 02/25/20 05:16 BUN/Creatinine Ratio 28 % 02/25/20 05:16 Glucose 163 mg/dL (65-100) H 02/25/20 14:21 POC Glucose 129 mg/dL (70-105) H 02/26/20 16:51 Lactic Acid 1.00 mmol/L (0.7-2.0) 02/24/20 14:31 Calcium 8.6 mg/dL (8.4-10.2) 02/25/20 05:16 Ferritin 335.1 ng/mL (10.0-200.0) H 02/25/20 14:21 Total Bilirubin 0.30 mg/dL (0.1-1.2) 02/24/20 12:07 AST 42 units/L (5-40) H 02/24/20 12:07 ALT 38 units/L (7-56) 02/24/20 12:07 Alkaline Phosphatase 106 units/L (35-129) 02/24/20 12:07 Lactate Dehydrogenase 406 units/L (91-180) H 02/25/20 14:21 C-Reactive Protein 6.10 mg/dL (0.00-1.30) H 02/25/20 14:21 Total Protein 8.0 g/dL (6.3-8.2) 02/24/20 12:07 Albumin 4.0 g/dL (3.9-5) 02/24/20 12:07 Albumin/Globulin Ratio 1.0 % 02/24/20 12:07 Procalcitonin < 0.05 ng/mL (<0.15) 02/25/20 14:21 Urine Color Yellow (Yellow) 02/24/20 Unknown Urine Turbidity Clear (Clear) 02/24/20 Unknown Urine pH 6.0 (5.0-7.0) 02/24/20 Unknown Ur Specific [place] 1.023 (1.003-1.030) 02/24/20 Unknown Urine Protein 100 mg/dl mg/dL (Negative) 02/24/20 Unknown Urine Glucose (UA) Neg mg/dL (Negative) 02/24/20 Unknown Urine Ketones Neg mg/dL (Negative) 02/24/20 Unknown Urine Blood Neg (Negative) 02/24/20 Unknown Urine Nitrite Neg (Negative) 02/24/20 Unknown Urine Bilirubin Neg (Negative) 02/24/20 Unknown Urine Urobilinogen 2.0 mg/dL (<2.0) 02/24/20 Unknown Ur Leukocyte Esterase Neg (Negative) 02/24/20 Unknown Urine WBC (Auto) 4.0 /HPF (0.0-6.0) 02/24/20 Unknown Urine RBC (Auto) 2.0 /HPF (0.0-6.0) 02/24/20 Unknown U Epithel Cells (Auto) 3.0 /HPF (0-13.0) 02/24/20 Unknown Urine Bacteria (Auto) 1+ /HPF (Negative) 02/24/20 Unknown Urine Mucus 1+ /HPF 02/24/20 Unknown Coronavirus (PCR) Positive (Negative) A 02/26/20 10:45 Microbiology: Microbiology 02/24/20 12:07 Peripheral/Venous Blood Culture - Preliminary NO GROWTH AFTER 48 HOURS 02/24/20 12:07 Peripheral/Venous Blood Culture - Preliminary NO GROWTH AFTER 48 HOURS [place]/IV: Voiding Method Toilet IV Catheter Type [Right INT / Saline Lock Antecubital] Active Medications - Current Medications Current Medications: Generic Name Dose Route Start Last Admin Trade Name Freq PRN Reason Stop Dose Admin Acetaminophen 650 mg 02/24/20 15:14 02/25/20 18:44 Acetaminophen 325 Mg Tab PO 650 mg Q4H PRN Administration Pain MILD(1-3)/Fever >100.5/DANGELO Albuterol 2.5 mg 02/24/20 15:14 Albuterol 2.5 Mg/3 Ml Nebu IH Q4HRT PRN Shortness Of Breath Benzonatate 100 mg 02/25/20 22:00 02/26/20 09:29 Benzonatate 100 Mg Cap PO 100 mg BID UTE Administration Famotidine 10 mg 02/24/20 22:00 02/26/20 09:29 Famotidine 10 Mg Tab PO 10 mg BID UTE Administration Heparin Sodium (Porcine) 5,000 unit 02/24/20 22:00 02/26/20 09:29 Heparin 5,000 Unit/1 Ml Vial SUB-Q 5,000 unit Q12HR UTE Administration Hydrocodone Bit/Homatropine Methylb 10 ml 02/26/20 15:00 02/26/20 15:06 Hydrocodone/Homatropine 5-1.5mg /5 Ml Oral Liqd Unit Dose PO 10 ml Q6H PRN Administration Cough Methylprednisolone Sodium Succinate 40 mg 02/24/20 22:00 02/26/20 14:48 Methylprednisolone Sod Succinate 40 Mg/1 Ml Inj IV 40 mg Q8HR UTE Administration Ondansetron HCl 4 mg 02/24/20 15:14 Ondansetron 4 Mg/2 Ml Inj IV Q8H PRN Nausea And Vomiting Sodium Chloride 10 ml 02/24/20 22:00 02/26/20 09:30 Sodium Chloride 0.9% 10 Ml Flush Syringe IV 10 ml BID UTE Administration Sodium Chloride 10 ml 02/24/20 15:14 Sodium Chloride 0.9% 10 Ml Flush Syringe IV PRN PRN LINE FLUSH
--- NOTE | 2020-02-26 22:21 | Progress Note ---
Assessment and Plan Patient alert, awake. Having coughing. No complaint of shortness of breath. Patient is on 3 litres O2. O2 saturation 98%. Patient running low grade temp. No leukocytosis. Patients Huynh virus PCR is Positive. Patients chest xray done 02/24/20 reported Patchy bilateral pulmonary opacities are concerning for infection/pneumonia. Atypical/viral etiologies should be considered. Patients inflammatory markers Ferritin 335 LDH 406 C reactive protein 6.1 D Dimer 396.96 Patient is on REMDESIVIR, Methyl prednisone and S/C Heparin. - Patient Problems (1) Acute hypoxemic respiratory failure Current Visit: Yes Status: Acute Plan to address problem: O2 3 litres via nasal canula. Albuterol inhaler. I/V Methyl prednisone S/C Heparin. (2) Obesity hypoventilation syndrome Current Visit: Yes Status: Acute Plan to address problem: Recommend to loose weight. Obtaining ABGs on room air. (3) Pneumonia Current Visit: Yes Status: Acute Qualifiers: Laterality: bilateral Plan to address problem: Patient is on REMDESIVIR and Methyl prednisone (4) Suspected 2019-nCoV infection Current Visit: Yes Status: Acute Plan to address problem: Patients Huynh virus PCR is positive. Patient is on REMDESIVIR, Methyl prednisone and S/C Heparin. Subjective Date of service: 02/26/20 Interval history: Patient alert, awake. Having coughing. No complaint of shortness of breath. Patient is on 3 litres O2. O2 saturation 98%. Patient running low grade temp. No leukocytosis. Patients Huynh virus PCR is Positive. Patients chest xray done 02/24/20 reported Patchy bilateral pulmonary opacities are concerning for infection/pneumonia. Atypical/viral etiologies should be considered. Patients inflammatory markers Ferritin 335 LDH 406 C reactive protein 6.1 D Dimer 396.96 Patient is on REMDESIVIR, Methyl prednisone and S/C Heparin. Objective Vital Signs - 12hr 02/26/20 02/26/20 02/26/20 12:11 16:13 21:25 Temperature 99.9 F H 99.9 F H Pulse Rate 90 89 Respiratory 16 20 Rate Blood Pressure 115/63 132/68 O2 Sat by Pulse 97 95 96 Oximetry Constitutional: alert, appears uncomfortable, other (Having cough) Eyes: non-icteric Neck: supple, no lymphadenopathy Effort: mildly labored Ascultation: Bilateral: rhonchi Cardiovascular: regular rate and rhythm Gastrointestinal: normoactive bowel sounds, soft, non-tender Integumentary: normal Extremities: no cyanosis, no edema Neurologic: non-focal exam, pupils equal and round Psychiatric: mood appropriate CBC and BMP: 02/25/20 05:16 02/25/20 14:21 ABG, PT/INR, D-dimer: PT/INR, D-dimer D-Dimer 396.96 ng/mlDDU (0-234) H 02/25/20 14:21 Abnormal lab findings: Abnormal Labs 02/24/20 02/24/20 02/24/20 12:07 12:07 12:07 RBC MCHC 35 H Lymph # (Auto) Seg Neutrophils % 76.6 H D-Dimer 236.88 H Potassium 3.4 L Chloride Creatinine Glucose POC Glucose Ferritin AST 42 H Lactate Dehydrogenase C-Reactive Protein Coronavirus (PCR) 02/24/20 02/24/20 02/25/20 12:07 12:07 05:16 RBC 3.53 L MCHC Lymph # (Auto) 1.1 L Seg Neutrophils % 75.0 H D-Dimer Potassium Chloride Creatinine Glucose 101 H POC Glucose Ferritin 200.8 H AST Lactate Dehydrogenase 315 H C-Reactive Protein 12.00 H Coronavirus (PCR) 02/25/20 02/25/20 02/25/20 05:16 08:21 11:52 RBC MCHC Lymph # (Auto) Seg Neutrophils % D-Dimer Potassium Chloride 109.8 H Creatinine 0.4 L Glucose 143 H POC Glucose 123 H 133 H Ferritin AST Lactate Dehydrogenase C-Reactive Protein Coronavirus (PCR) 02/25/20 02/25/20 02/25/20 14:21 14:21 14:21 RBC MCHC Lymph # (Auto) Seg Neutrophils % D-Dimer 396.96 H Potassium Chloride Creatinine Glucose 163 H POC Glucose Ferritin 335.1 H AST Lactate Dehydrogenase 406 H C-Reactive Protein 6.10 H Coronavirus (PCR) 02/25/20 02/25/20 02/26/20 16:17 22:45 07:55 RBC MCHC Lymph # (Auto) Seg Neutrophils % D-Dimer Potassium Chloride Creatinine Glucose POC Glucose 124 H 154 H 124 H Ferritin AST Lactate Dehydrogenase C-Reactive Protein Coronavirus (PCR) 02/26/20 02/26/20 02/26/20 10:45 12:10 16:51 RBC MCHC Lymph # (Auto) Seg Neutrophils % D-Dimer Potassium Chloride Creatinine Glucose POC Glucose 121 H 129 H Ferritin AST Lactate Dehydrogenase C-Reactive Protein Coronavirus (PCR) Positive A 02/26/20 22:00 RBC MCHC Lymph # (Auto) Seg Neutrophils % D-Dimer Potassium Chloride Creatinine Glucose POC Glucose 134 H Ferritin AST Lactate Dehydrogenase C-Reactive Protein Coronavirus (PCR) Chest x-ray: report reviewed, image reviewed Additional Studies: CHEST PA AND LATERAL VIEWS 02/24/20 INDICATION: fever, cough, SOB. COMPARISON: None. FINDINGS: Support devices: None. Heart: Within normal limits. Lungs/Pleura: There are somewhat patchy bilateral pulmonary opacities with relative sparing of the apices. No pleural abnormality. IMPRESSION: 1. Patchy bilateral pulmonary opacities are concerning for infection/pneumonia. Atypical/viral etiologies should be considered.
[2020-02-27] MEDS: HYDROcodone/HOMATROPINE 5-1.5MG /5 ML ORAL LIQD UNIT DOSE PO PRN ×3 (04:21→15:41)
[2020-02-27] MEDS: ACETAMINOPHEN 325 MG TAB PO PRN ×2 (04:22→20:37)
[2020-02-27] MEDS: methylPREDNISolone Sod Succinate 40 MG/1 ML INJ IV SCH ×4 (05:20→21:07)
[2020-02-27] MEDS: BENZONATATE 100 MG CAP PO SCH ×3 (10:13→21:07)
[2020-02-27] MEDS: FAMOTIDINE 10 MG TAB PO SCH ×2 (10:14→21:07)
[2020-02-27] MEDS: HEPARIN 5,000 UNIT/1 ML VIAL SUB-Q SCH ×3 (10:14→21:06)
[2020-02-27] MEDS ORDERED: SODIUM CHLORIDE IV SCH (15:00)
[2020-02-27] MEDS ORDERED: REMDESIVIR 100 MG VIAL IV ONE (15:00)
[2020-02-27] MEDS ORDERED: REMDESIVIR 200 MG in SODIUM CHLORIDE 0.9% 250ML 250 ML IV ONE (15:00)
[2020-02-27] MEDS ORDERED: SODIUM CHLORIDE 0.9% 50 ML IVPB IV ONE (15:00)
--- NOTE | 2020-02-27 20:21 | Progress Note ---
Assessment and Plan - Patient Problems (1) Acute hypoxemic respiratory failure Current Visit: Yes Status: Acute Plan to address problem: Chest x-ray, supplemental oxygen, nebulizer therapy, prone positioning while in bed, pulmonary toilet, ambulate 3 times daily and as needed. Noninvasive positive pressure ventilation as clinically indicated. If patient is unable to main pulse oximetry with supplemental oxygen will then escalate care with the use of high flow supplemental oxygen. (2) Suspected 2019-nCoV infection Current Visit: Yes Status: Acute Plan to address problem: Coronavirus protocol: Coronavirus PCR ordered and is positive, contact precau tions, isolation precautions, prone positioning while in bed, pulmonary toilet, IV steroid therapy, IV antibiotic therapy, supplemental oxygen, pulse oximetry. (3) Pneumonia Current Visit: Yes Status: Acute Plan to address problem: Pneumonia protocol: Chest x-ray, CBC, CMP, supplemental oxygen, nebulizer therapy, pulse oximetry, IV antibiotic therapy, pulmonary toilet, blood culture. (4) Obesity hypoventilation syndrome Current Visit: Yes Status: Acute Plan to address problem: Supplemental oxygen, pulse oximetry, nebulizer therapy, noninvasive positive pressure ventilation as clinically indicated, outpatient pulmonary follow-up for sleep study. (5) DVT prophylaxis Current Visit: Yes Status: Acute Plan to address problem: SCD to bilateral lower extremities while in bed, prophylactic anticoagulation History Interval history: 50 YO Female HD #4 with Obesity Hypoventilation Syndrome, acute hypoxemic respiratory failure, bilateral pneumonia, coronavirus infection. Patient convalesced well overnight. Patient acknowledges continued shortness of breath. Patient acknowledges continued dry cough. No reported nursing events. Patient denies pain. Hospitalist Physical - Constitutional Vitals: Temp Pulse Resp BP Pulse Ox 99.0 F 72 22 114/49 90 02/27/20 15:27 02/27/20 15:27 02/27/20 15:27 02/27/20 17:28 02/27/20 15:27 General appearance: Present: mild distress, obese - EENT Eyes: Present: PERRL, EOM intact ENT: hearing intact - Neck Neck: Present: supple - Respiratory Respiratory: bilateral: diminished, rhonchi - Cardiovascular Rhythm: regular Heart Sounds: Present: S1 & S2 - Extremities Extremities: no ischemia Peripheral Pulses: within normal limits - Abdominal General gastrointestinal: soft, non-tender, non-distended - Integumentary Integumentary: Present: clear, dry - Psychiatric Psychiatric: appropriate mood/affect, cooperative - Neurologic Neurologic: CNII-XII intact Results - Labs CBC & Chem 7: 02/25/20 05:16 02/25/20 14:21 Labs: Laboratory Last Values WBC 5.5 K/mm3 (4.5-11.0) 02/25/20 05:16 RBC 3.53 M/mm3 (3.65-5.03) L 02/25/20 05:16 Hgb 10.8 gm/dl (10.1-14.3) 02/25/20 05:16 Hct 32.1 % (30.3-42.9) 02/25/20 05:16 MCV 91 fl (79-97) 02/25/20 05:16 MCH 31 pg (28-32) 02/25/20 05:16 MCHC 34 % (30-34) 02/25/20 05:16 RDW 14.0 % (13.2-15.2) 02/25/20 05:16 Plt Count 172 K/mm3 (140-440) 02/25/20 05:16 Lymph % (Auto) 19.3 % (13.4-35.0) 02/25/20 05:16 [place] % (Auto) 5.6 % (0.0-7.3) 02/25/20 05:16 Eos % (Auto) 0.0 % (0.0-4.3) 02/25/20 05:16 Baso % (Auto) 0.1 % (0.0-1.8) 02/25/20 05:16 Lymph # (Auto) 1.1 K/mm3 (1.2-5.4) L 02/25/20 05:16 [place] # (Auto) 0.3 K/mm3 (0.0-0.8) 02/25/20 05:16 Eos # (Auto) 0.0 K/mm3 (0.0-0.4) 02/25/20 05:16 Baso # (Auto) 0.0 K/mm3 (0.0-0.1) 02/25/20 05:16 Seg Neutrophils % 75.0 % (40.0-70.0) H 02/25/20 05:16 Seg Neutrophils # 4.1 K/mm3 (1.8-7.7) 02/25/20 05:16 D-Dimer 396.96 ng/mlDDU (0-234) H 02/25/20 14:21 Sodium 140 mmol/L (137-145) 02/25/20 05:16 Potassium 3.7 mmol/L (3.6-5.0) 02/25/20 05:16 Chloride 109.8 mmol/L (98-107) H 02/25/20 05:16 Carbon Dioxide 22 mmol/L (22-30) 02/25/20 05:16 Anion Gap 12 mmol/L 02/25/20 05:16 BUN 11 mg/dL (7-17) 02/25/20 05:16 Creatinine 0.4 mg/dL (0.6-1.2) L 02/25/20 05:16 Estimated GFR > 60 ml/min 02/25/20 05:16 BUN/Creatinine Ratio 28 % 02/25/20 05:16 Glucose 163 mg/dL (65-100) H 02/25/20 14:21 POC Glucose 136 mg/dL (70-105) H 02/27/20 17:21 Lactic Acid 1.00 mmol/L (0.7-2.0) 02/24/20 14:31 Calcium 8.6 mg/dL (8.4-10.2) 02/25/20 05:16 Ferritin 335.1 ng/mL (10.0-200.0) H 02/25/20 14:21 Total Bilirubin 0.30 mg/dL (0.1-1.2) 02/24/20 12:07 AST 42 units/L (5-40) H 02/24/20 12:07 ALT 38 units/L (7-56) 02/24/20 12:07 Alkaline Phosphatase 106 units/L (35-129) 02/24/20 12:07 Lactate Dehydrogenase 406 units/L (91-180) H 02/25/20 14:21 C-Reactive Protein 6.10 mg/dL (0.00-1.30) H 02/25/20 14:21 Total Protein 8.0 g/dL (6.3-8.2) 02/24/20 12:07 Albumin 4.0 g/dL (3.9-5) 02/24/20 12:07 Albumin/Globulin Ratio 1.0 % 02/24/20 12:07 Procalcitonin < 0.05 ng/mL (<0.15) 02/25/20 14:21 Urine Color Yellow (Yellow) 02/24/20 Unknown Urine Turbidity Clear (Clear) 02/24/20 Unknown Urine pH 6.0 (5.0-7.0) 02/24/20 Unknown Ur Specific [place] 1.023 (1.003-1.030) 02/24/20 Unknown Urine Protein 100 mg/dl mg/dL (Negative) 02/24/20 Unknown Urine Glucose (UA) Neg mg/dL (Negative) 02/24/20 Unknown Urine Ketones Neg mg/dL (Negative) 02/24/20 Unknown Urine Blood Neg (Negative) 02/24/20 Unknown Urine Nitrite Neg (Negative) 02/24/20 Unknown Urine Bilirubin Neg (Negative) 02/24/20 Unknown Urine Urobilinogen 2.0 mg/dL (<2.0) 02/24/20 Unknown Ur Leukocyte Esterase Neg (Negative) 02/24/20 Unknown Urine WBC (Auto) 4.0 /HPF (0.0-6.0) 02/24/20 Unknown Urine RBC (Auto) 2.0 /HPF (0.0-6.0) 02/24/20 Unknown U Epithel Cells (Auto) 3.0 /HPF (0-13.0) 02/24/20 Unknown Urine Bacteria (Auto) 1+ /HPF (Negative) 02/24/20 Unknown Urine Mucus 1+ /HPF 02/24/20 Unknown Coronavirus (PCR) Positive (Negative) A 02/26/20 10:45 Microbiology: Microbiology 02/24/20 12:07 Peripheral/Venous Blood Culture - Preliminary NO GROWTH AFTER 72 HOURS 02/24/20 12:07 Peripheral/Venous Blood Culture - Preliminary NO GROWTH AFTER 72 HOURS [place]/IV: Voiding Method Toilet IV Catheter Type [Right INT / Saline Lock Antecubital] Active Medications - Current Medications Current Medications: Generic Name Dose Route Start Last Admin Trade Name Freq PRN Reason Stop Dose Admin Acetaminophen 650 mg 02/24/20 15:14 02/27/20 04:22 Acetaminophen 325 Mg Tab PO 650 mg Q4H PRN Administration Pain MILD(1-3)/Fever >100.5/DANGELO Albuterol 2.5 mg 02/24/20 15:14 Albuterol 2.5 Mg/3 Ml Nebu IH Q4HRT PRN Shortness Of Breath Benzonatate 100 mg 02/25/20 22:00 02/27/20 10:13 Benzonatate 100 Mg Cap PO 100 mg BID UTE Administration Famotidine 10 mg 02/24/20 22:00 02/27/20 10:14 Famotidine 10 Mg Tab PO 10 mg BID UTE Administration Heparin Sodium (Porcine) 5,000 unit 02/24/20 22:00 02/27/20 10:14 Heparin 5,000 Unit/1 Ml Vial SUB-Q 5,000 unit Q12HR UTE Administration Hydrocodone Bit/Homatropine Methylb 10 ml 02/26/20 15:00 02/27/20 15:41 Hydrocodone/Homatropine 5-1.5mg /5 Ml Oral Liqd Unit Dose PO 10 ml Q6H PRN Administration Cough REMDESIVIR 100 mg/ Sodium 250 mls @ 500 mls/hr 02/28/20 21:00 Chloride IV 03/02/20 21:29 Q24HR@2100 [facility] Methylprednisolone Sodium Succinate 40 mg 02/24/20 22:00 02/27/20 14:35 Methylprednisolone Sod Succinate 40 Mg/1 Ml Inj IV 40 mg Q8HR UTE Administration Ondansetron HCl 4 mg 02/24/20 15:14 Ondansetron 4 Mg/2 Ml Inj IV Q8H PRN Nausea And Vomiting Sodium Chloride 10 ml 02/24/20 22:00 02/27/20 10:14 Sodium Chloride 0.9% 10 Ml Flush Syringe IV 10 ml BID UTE Administration Sodium Chloride 10 ml 02/24/20 15:14 Sodium Chloride 0.9% 10 Ml Flush Syringe IV PRN PRN LINE FLUSH Sodium Chloride 50 ml 02/28/20 21:00 Sodium Chloride 0.9% 50 Ml Ivpb IV 03/02/20 21:01 Q24HR@2100 [facility]
--- NOTE | 2020-02-27 21:48 | Progress Note ---
Assessment and Plan Patient alert, awake. Having cough. No complaint of shortness of breath. Patient is on 3 litres O2. O2 saturation 94%. Patient running low grade temp. No leukocytosis. Complaining headache at times.Patients Huynh virus PCR is Positive. Patients chest xray done 02/24/20 reported Patchy bilateral pulmonary opacities are concerning for infection/pneumonia. Atypical/viral etiologies should be considered. Patients inflammatory markers Ferritin 335 LDH 406 C reactive protein 6.1 D Dimer 396.96 Patient is on REMDESIVIR, Methyl prednisone and S/C Heparin. - Patient Problems (1) Acute hypoxemic respiratory failure Current Visit: Yes Status: Acute Plan to address problem: O2 3 litres via nasal canula. Albuterol inhaler. I/V Methyl prednisone S/C Heparin. (2) Obesity hypoventilation syndrome Current Visit: Yes Status: Acute Plan to address problem: Recommend to loose weight. Obtaining ABGs on room air. (3) Pneumonia Current Visit: Yes Status: Acute Qualifiers: Laterality: bilateral Plan to address problem: Patient is on REMDESIVIR and Methyl prednisone (4) Suspected 2019-nCoV infection Current Visit: Yes Status: Acute Plan to address problem: Patients Huynh virus PCR is positive. Patient is on REMDESIVIR, Methyl prednisone and S/C Heparin. Subjective Date of service: 02/27/20 Interval history: Patient alert, awake. Having cough. No complaint of shortness of breath. Patient is on 3 litres O2. O2 saturation 94%. Patient running low grade temp. No leukocytosis. Complaining headache at times.Patients Huynh virus PCR is Positiv e. Patients chest xray done 02/24/20 reported Patchy bilateral pulmonary opacities are concerning for infection/pneumonia. Atypical/viral etiologies should be considered. Patients inflammatory markers Ferritin 335 LDH 406 C reactive protein 6.1 D Dimer 396.96 Patient is on REMDESIVIR, Methyl prednisone and S/C Heparin. Objective Vital Signs - 12hr 02/27/20 02/27/20 02/27/20 15:27 17:28 20:00 Temperature 99.0 F Pulse Rate 72 Respiratory 22 18 Rate Blood Pressure 88/28 Blood Pressure 114/49 [Left] O2 Sat by Pulse 90 Oximetry Constitutional: alert, appears uncomfortable, other (Having cough) Eyes: non-icteric Neck: supple, no lymphadenopathy Effort: mildly labored Ascultation: Bilateral: rhonchi Cardiovascular: regular rate and rhythm Gastrointestinal: normoactive bowel sounds, soft, non-tender Integumentary: normal Extremities: no cyanosis, no edema Neurologic: non-focal exam, pupils equal and round Psychiatric: mood appropriate CBC and BMP: 02/25/20 05:16 02/25/20 14:21 ABG, PT/INR, D-dimer: PT/INR, D-dimer D-Dimer 396.96 ng/mlDDU (0-234) H 02/25/20 14:21 Abnormal lab findings: Abnormal Labs 02/24/20 02/24/20 02/24/20 12:07 12:07 12:07 RBC MCHC 35 H Lymph # (Auto) Seg Neutrophils % 76.6 H D-Dimer 236.88 H Potassium 3.4 L Chloride Creatinine Glucose POC Glucose Ferritin AST 42 H Lactate Dehydrogenase C-Reactive Protein Coronavirus (PCR) 02/24/20 02/24/20 02/25/20 12:07 12:07 05:16 RBC 3.53 L MCHC Lymph # (Auto) 1.1 L Seg Neutrophils % 75.0 H D-Dimer Potassium Chloride Creatinine Glucose 101 H POC Glucose Ferritin 200.8 H AST Lactate Dehydrogenase 315 H C-Reactive Protein 12.00 H Coronavirus (PCR) 02/25/20 02/25/20 02/25/20 05:16 08:21 11:52 RBC MCHC Lymph # (Auto) Seg Neutrophils % D-Dimer Potassium Chloride 109.8 H Creatinine 0.4 L Glucose 143 H POC Glucose 123 H 133 H Ferritin AST Lactate Dehydrogenase C-Reactive Protein Coronavirus (PCR) 02/25/20 02/25/20 02/25/20 14:21 14:21 14:21 RBC MCHC Lymph # (Auto) Seg Neutrophils % D-Dimer 396.96 H Potassium Chloride Creatinine Glucose 163 H POC Glucose Ferritin 335.1 H AST Lactate Dehydrogenase 406 H C-Reactive Protein 6.10 H Coronavirus (PCR) 02/25/20 02/25/20 02/26/20 16:17 22:45 07:55 RBC MCHC Lymph # (Auto) Seg Neutrophils % D-Dimer Potassium Chloride Creatinine Glucose POC Glucose 124 H 154 H 124 H Ferritin AST Lactate Dehydrogenase C-Reactive Protein Coronavirus (PCR) 02/26/20 02/26/20 02/26/20 10:45 12:10 16:51 RBC MCHC Lymph # (Auto) Seg Neutrophils % D-Dimer Potassium Chloride Creatinine Glucose POC Glucose 121 H 129 H Ferritin AST Lactate Dehydrogenase C-Reactive Protein Coronavirus (PCR) Positive A 02/26/20 02/27/20 02/27/20 22:00 07:58 12:04 RBC MCHC Lymph # (Auto) Seg Neutrophils % D-Dimer Potassium Chloride Creatinine Glucose POC Glucose 134 H 115 H 146 H Ferritin AST Lactate Dehydrogenase C-Reactive Protein Coronavirus (PCR) 02/27/20 17:21 RBC MCHC Lymph # (Auto) Seg Neutrophils % D-Dimer Potassium Chloride Creatinine Glucose POC Glucose 136 H Ferritin AST Lactate Dehydrogenase C-Reactive Protein Coronavirus (PCR)
[2020-02-28] MEDS: HYDROcodone/HOMATROPINE 5-1.5MG /5 ML ORAL LIQD UNIT DOSE PO PRN ×2 (01:32→21:05)
[2020-02-28] MEDS: ACETAMINOPHEN 325 MG TAB PO PRN ×3 (02:18→21:05)
[2020-02-28] MEDS: methylPREDNISolone Sod Succinate 40 MG/1 ML INJ IV SCH ×3 (05:30→21:05)
--- NOTE | 2020-02-28 08:53 | Progress Note ---
Assessment and Plan Cultures: Blood culture pending SARS CoV2 PCR pending Assessment: 50 years old female with history of obesity, admitted on 02/24/2020 secondary to 2-week history of feeling sick with dry cough, fever, generalized malaise, shortness of breath, dyspnea on exertion, nausea, vomiting, diarrhea, loss of smell and taste: #Severe sepsis: Remains hypoxia likely due to bilateral pneumonia. #Severe COVID pneumonia: Chest x-ray with bilateral patchy infiltrates. Inflammatory markers elevated, worsening. Procalcitonin normal. #Acute hypoxemic respiratory failure: O2 sats dropped to 93%, ambulation to 88%. Worsening now on high flow nasal cannula 100%, 15 L #Elevated LFTs: from COVID #Obesity: Associated with worse outcomes. Recommendations: -Obtain SARS-CoV-2 IgG pending -Steroids per pulmonary -Continue remdesivir total 5 days -Monitor inflammatory markers - ferritin, Ddimer, CRP, LDH-ordered today -Monitor liver function test on Remdesivir -Continue anticoagulation per System Protocol -Prone positioning as possible -Pulmonary on board -Venous ultrasound rule out PE, ordered -Consider chest CTA rule out DVT Guarded prognosis All laboratory, cultures and imaging were reviewed. Will follow Mar Reyna MD Infectious Diseases Rn Iv Therapy [facility] [phone] [id number] [phone] Subjective Date of service: 02/28/20 Interval history: Remains on high flow nasal cannula 100%, 15 L, no fever Objective - Constitutional Vitals: Vital Signs Temp Pulse Resp BP Pulse Ox 98.0 F 76 20 123/67 90 02/28/20 04:50 02/28/20 04:50 02/28/20 04:50 02/28/20 04:50 02/28/20 04:50 Temperature -Last 24 Hours Temperature 98.0 F Temperature 98.3 F Temperature 99.0 F - Labs CBC & Chem 7: 02/25/20 05:16 02/25/20 14:21 Labs: Abnormal lab results 02/27/20 02/27/20 Range/Units 12:04 17:21 POC Glucose 146 H 136 H (70-105) mg/dL
[2020-02-28] MEDS ORDERED: MORPHINE 4 MG/1 ML INJ IV NR (09:15)
[2020-02-28] MEDS: BENZONATATE 100 MG CAP PO SCH ×2 (09:39→21:05)
[2020-02-28] MEDS: FAMOTIDINE 10 MG TAB PO SCH ×2 (09:39→21:05)
[2020-02-28] MEDS: HEPARIN 5,000 UNIT/1 ML VIAL SUB-Q SCH ×2 (09:39→21:05)
--- NOTE | 2020-02-28 13:08 | Progress Note ---
Assessment and Plan - Patient Problems (1) Acute hypoxemic respiratory failure Current Visit: Yes Status: Acute Plan to address problem: Chest x-ray, supplemental oxygen, nebulizer therapy, prone positioning while in bed, pulmonary toilet, ambulate 3 times daily and as needed. Noninvasive positive pressure ventilation as clinically indicated. Patient requires increasing high flow supplemental oxygen to maintain pulse oximetry. Will consider transfer to IMCU/CCU if patient has worsening symptoms and does not respond to high flow supplemental oxygen. (2) Suspected 2019-nCoV infection Current Visit: Yes Status: Acute Plan to address problem: Coronavirus protocol: Coronavirus PCR ordered and is positive, contact precautions, isolation precautions, prone positioning while in bed, pulmonary toilet, IV steroid therapy, IV antibiotic therapy, supplemental oxygen, pulse oximetry. (3) Pneumonia Current Visit: Yes Status: Acute Qualifiers: Laterality: bilateral Plan to address problem: Pneumonia protocol: Chest x-ray, CBC, CMP, supplemental oxygen, nebulizer therapy, pulse oximetry, IV antibiotic therapy, pulmonary toilet, blood culture. (4) Obesity hypoventilation syndrome Current Visit: Yes Status: Acute Plan to address problem: Supplemental oxygen, pulse oximetry, nebulizer therapy, noninvasive positive pressure ventilation as clinically indicated, outpatient pulmonary follow-up for sleep study. (5) DVT prophylaxis Current Visit: Yes Status: Acute Plan to address problem: SCD to bilateral lower extremities while in bed, prophylactic anticoagulation History Interval history: 50 YO Female HD #5 with Obesity Hypoventilation Syndrome, acute hypoxemic respiratory failure, bilateral pneumonia, coronavirus infection. Patient experienced respiratory decompensation overnight and this morning patient requiring increasing oxygen concentration on high flow submental oxygen. Pat ient acknowledges continued shortness of breath. Patient acknowledges continued dry cough. Patient initiated on remdesivir therapy. Patient denies pain. Care plan discussed with nursing staff. If patient has continued worsening symptoms will escalate level of care and transfer patient to IMCU/CCU as clinically indicated. Hospitalist Physical - Constitutional Vitals: Temp Pulse Resp BP Pulse Ox 98.0 F 76 20 123/67 86 02/28/20 04:50 02/28/20 04:50 02/28/20 04:50 02/28/20 04:50 02/28/20 08:30 General appearance: Present: mild distress, obese - EENT Eyes: Present: PERRL, EOM intact ENT: hearing intact - Neck Neck: Present: supple - Respiratory Respiratory effort: labored, accessory muscle use Respiratory: bilateral: diminished, rhonchi - Cardiovascular Rhythm: regular Heart Sounds: Present: S1 & S2 - Extremities Extremities: no ischemia Extremity abnormal: edema Peripheral Pulses: within normal limits - Abdominal General gastrointestinal: soft, non-tender, non-distended - Integumentary Integumentary: Present: clear, dry - Psychiatric Psychiatric: appropriate mood/affect, cooperative - Neurologic Neurologic: CNII-XII intact Results - Labs CBC & Chem 7: 02/25/20 05:16 02/25/20 14:21 Labs: Laboratory Last Values WBC 5.5 K/mm3 (4.5-11.0) 02/25/20 05:16 RBC 3.53 M/mm3 (3.65-5.03) L 02/25/20 05:16 Hgb 10.8 gm/dl (10.1-14.3) 02/25/20 05:16 Hct 32.1 % (30.3-42.9) 02/25/20 05:16 MCV 91 fl (79-97) 02/25/20 05:16 MCH 31 pg (28-32) 02/25/20 05:16 MCHC 34 % (30-34) 02/25/20 05:16 RDW 14.0 % (13.2-15.2) 02/25/20 05:16 Plt Count 172 K/mm3 (140-440) 02/25/20 05:16 Lymph % (Auto) 19.3 % (13.4-35.0) 02/25/20 05:16 [place] % (Auto) 5.6 % (0.0-7.3) 02/25/20 05:16 Eos % (Auto) 0.0 % (0.0-4.3) 02/25/20 05:16 Baso % (Auto) 0.1 % (0.0-1.8) 02/25/20 05:16 Lymph # (Auto) 1.1 K/mm3 (1.2-5.4) L 02/25/20 05:16 [place] # (Auto) 0.3 K/mm3 (0.0-0.8) 02/25/20 05:16 Eos # (Auto) 0.0 K/mm3 (0.0-0.4) 02/25/20 05:16 Baso # (Auto) 0.0 K/mm3 (0.0-0.1) 02/25/20 05:16 Seg Neutrophils % 75.0 % (40.0-70.0) H 02/25/20 05:16 Seg Neutrophils # 4.1 K/mm3 (1.8-7.7) 02/25/20 05:16 D-Dimer 396.96 ng/mlDDU (0-234) H 02/25/20 14:21 Sodium 140 mmol/L (137-145) 02/25/20 05:16 Potassium 3.7 mmol/L (3.6-5.0) 02/25/20 05:16 Chloride 109.8 mmol/L (98-107) H 02/25/20 05:16 Carbon Dioxide 22 mmol/L (22-30) 02/25/20 05:16 Anion Gap 12 mmol/L 02/25/20 05:16 BUN 11 mg/dL (7-17) 02/25/20 05:16 Creatinine 0.4 mg/dL (0.6-1.2) L 02/25/20 05:16 Estimated GFR > 60 ml/min 02/25/20 05:16 BUN/Creatinine Ratio 28 % 02/25/20 05:16 Glucose 163 mg/dL (65-100) H 02/25/20 14:21 POC Glucose 136 mg/dL (70-105) H 02/27/20 17:21 Lactic Acid 1.00 mmol/L (0.7-2.0) 02/24/20 14:31 Calcium 8.6 mg/dL (8.4-10.2) 02/25/20 05:16 Ferritin 335.1 ng/mL (10.0-200.0) H 02/25/20 14:21 Total Bilirubin 0.30 mg/dL (0.1-1.2) 02/24/20 12:07 AST 42 units/L (5-40) H 02/24/20 12:07 ALT 38 units/L (7-56) 02/24/20 12:07 Alkaline Phosphatase 106 units/L (35-129) 02/24/20 12:07 Lactate Dehydrogenase 406 units/L (91-180) H 02/25/20 14:21 C-Reactive Protein 6.10 mg/dL (0.00-1.30) H 02/25/20 14:21 Total Protein 8.0 g/dL (6.3-8.2) 02/24/20 12:07 Albumin 4.0 g/dL (3.9-5) 02/24/20 12:07 Albumin/Globulin Ratio 1.0 % 02/24/20 12:07 Procalcitonin < 0.05 ng/mL (<0.15) 02/25/20 14:21 Urine Color Yellow (Yellow) 02/24/20 Unknown Urine Turbidity Clear (Clear) 02/24/20 Unknown Urine pH 6.0 (5.0-7.0) 02/24/20 Unknown Ur Specific [place] 1.023 (1.003-1.030) 02/24/20 Unknown Urine Protein 100 mg/dl mg/dL (Negative) 02/24/20 Unknown Urine Glucose (UA) Neg mg/dL (Negative) 02/24/20 Unknown Urine Ketones Neg mg/dL (Negative) 02/24/20 Unknown Urine Blood Neg (Negative) 02/24/20 Unknown Urine Nitrite Neg (Negative) 02/24/20 Unknown Urine Bilirubin Neg (Negative) 02/24/20 Unknown Urine Urobilinogen 2.0 mg/dL (<2.0) 02/24/20 Unknown Ur Leukocyte Esterase Neg (Negative) 02/24/20 Unknown Urine WBC (Auto) 4.0 /HPF (0.0-6.0) 02/24/20 Unknown Urine RBC (Auto) 2.0 /HPF (0.0-6.0) 02/24/20 Unknown U Epithel Cells (Auto) 3.0 /HPF (0-13.0) 02/24/20 Unknown Urine Bacteria (Auto) 1+ /HPF (Negative) 02/24/20 Unknown Urine Mucus 1+ /HPF 02/24/20 Unknown Coronavirus (PCR) Positive (Negative) A 02/26/20 10:45 Microbiology: Microbiology 02/24/20 12:07 Peripheral/Venous Blood Culture - Preliminary NO GROWTH AFTER 4 DAYS 02/24/20 12:07 Peripheral/Venous Blood Culture - Preliminary NO GROWTH AFTER 4 DAYS [place]/IV: Voiding Method Toilet IV Catheter Type [Right INT / Saline Lock Antecubital] Active Medications - Current Medications Current Medications: Generic Name Dose Route Start Last Admin Trade Name Freq PRN Reason Stop Dose Admin Acetaminophen 650 mg 02/24/20 15:14 02/28/20 02:18 Acetaminophen 325 Mg Tab PO 650 mg Q4H PRN Administration Pain MILD(1-3)/Fever >100.5/DANGELO Albuterol 2.5 mg 02/24/20 15:14 Albuterol 2.5 Mg/3 Ml Nebu IH Q4HRT PRN Shortness Of Breath Benzonatate 100 mg 02/25/20 22:00 02/28/20 09:39 Benzonatate 100 Mg Cap PO 100 mg BID UTE Administration Famotidine 10 mg 02/24/20 22:00 02/28/20 09:39 Famotidine 10 Mg Tab PO 10 mg BID UTE Administration Heparin Sodium (Porcine) 5,000 unit 02/24/20 22:00 02/28/20 09:39 Heparin 5,000 Unit/1 Ml Vial SUB-Q 5,000 unit Q12HR UTE Administration Hydrocodone Bit/Homatropine Methylb 10 ml 02/26/20 15:00 02/28/20 01:32 Hydrocodone/Homatropine 5-1.5mg /5 Ml Oral Liqd Unit Dose PO 10 ml Q6H PRN Administration Cough REMDESIVIR 100 mg/ Sodium 250 mls @ 500 mls/hr 02/28/20 21:00 Chloride IV 03/02/20 21:29 Q24HR@2100 [facility] Methylprednisolone Sodium Succinate 40 mg 02/24/20 22:00 02/28/20 05:30 Methylprednisolone Sod Succinate 40 Mg/1 Ml Inj IV 40 mg Q8HR UTE Administration Ondansetron HCl 4 mg 02/24/20 15:14 Ondansetron 4 Mg/2 Ml Inj IV Q8H PRN Nausea And Vomiting Sodium Chloride 10 ml 02/24/20 22:00 02/28/20 09:40 Sodium Chloride 0.9% 10 Ml Flush Syringe IV 10 ml BID UTE Administration Sodium Chloride 10 ml 02/24/20 15:14 Sodium Chloride 0.9% 10 Ml Flush Syringe IV PRN PRN LINE FLUSH Sodium Chloride 50 ml 02/28/20 21:00 Sodium Chloride 0.9% 50 Ml Ivpb IV 03/02/20 21:01 Q24HR@2100 [facility]
--- NOTE | 2020-02-28 14:33 | Progress Note ---
Assessment and Plan Patient alert, awake. Having cough. Having mild shortness of breath at rest. Patient is on vapotherm, FIO2 100% and O2 saturation 95%. Patient afebrile. No leukocytosis. Complaining headache at times.Patients [place] virus PCR is Positive. Patients chest xray done 02/24/20 reported Patchy bilateral pulmonary opacities are concerning for infection/pneumonia. Atypical/viral etiologies should be considered. Patients inflammatory markers Ferritin 464.3 LDH 779 C reactive protein 6.1 Troponin .01 D Dimer 995.1 Patient is on REMDESIVIR, Methyl prednisone and S/C Heparin. - Patient Problems (1) Acute hypoxemic respiratory failure Current Visit: Yes Status: Acute Plan to address problem: Patient is on high flow O2, Vapotherm 100% Albuterol inhaler. I/V Methyl prednisone S/C Heparin. (2) Obesity hypoventilation syndrome Current Visit: Yes Status: Acute Plan to address problem: Recommend to loose weight. Obtaining ABGs on room air. (3) Pneumonia Current Visit: Yes Status: Acute Qualifiers: Laterality: bilateral Plan to address problem: Patient is on REMDESIVIR and Methyl prednisone (4) Suspected 2019-nCoV infection Current Visit: Yes Status: Acute Plan to address problem: Patients [place] virus PCR is positive. Patient is on REMDESIVIR, Methyl prednisone and S/C Heparin. Subjective Date of service: 02/28/20 Interval history: Patient alert, awake. Having cough. Having mild shortness of breath at rest. Patient is on vapotherm, FIO2 100% and O2 saturation 95%. Patient afebrile. No leukocytosis. Complaining headache at times.Patients [place] virus PCR is Positive. Patients chest xray done 02/24/20 reported Patchy bilateral pulmonary opacities are concerning for infection/pneumonia. Atypical/viral etiologies should be considered. Patients inflammatory markers Ferritin 464.3 LDH 779 C reactive protein 6.1 Troponin .01 D Dimer 995.1 Patient is on REMDESIVIR, Methyl prednisone and S/C Heparin. Objective Vital Signs - 12hr 02/28/20 02/28/20 04:50 08:30 Temperature 98.0 F Pulse Rate 76 Respiratory 20 Rate Blood Pressure 123/67 O2 Sat by Pulse 90 86 Oximetry Constitutional: alert, appears uncomfortable, other (Having cough) Eyes: non-icteric Neck: supple, no lymphadenopathy Effort: mildly labored Ascultation: Bilateral: rhonchi Cardiovascular: regular rate and rhythm Gastrointestinal: normoactive bowel sounds, soft, non-tender Integumentary: normal Extremities: no cyanosis, no edema Neurologic: non-focal exam, pupils equal and round Psychiatric: mood appropriate CBC and BMP: 02/25/20 05:16 02/28/20 16:03 ABG, PT/INR, D-dimer: PT/INR, D-dimer D-Dimer 396.96 ng/mlDDU (0-234) H 02/25/20 14:21 Abnormal lab findings: Abnormal Labs 02/24/20 02/24/20 02/24/20 12:07 12:07 12:07 RBC MCHC 35 H Lymph # (Auto) Seg Neutrophils % 76.6 H D-Dimer 236.88 H Potassium 3.4 L Chloride Creatinine Glucose POC Glucose Ferritin AST 42 H Lactate Dehydrogenase C-Reactive Protein Coronavirus (PCR) 02/24/20 02/24/20 02/25/20 12:07 12:07 05:16 RBC 3.53 L MCHC Lymph # (Auto) 1.1 L Seg Neutrophils % 75.0 H D-Dimer Potassium Chloride Creatinine Glucose 101 H POC Glucose Ferritin 200.8 H AST Lactate Dehydrogenase 315 H C-Reactive Protein 12.00 H Coronavirus (PCR) 02/25/20 02/25/20 02/25/20 05:16 08:21 11:52 RBC MCHC Lymph # (Auto) Seg Neutrophils % D-Dimer Potassium Chloride 109.8 H Creatinine 0.4 L Glucose 143 H POC Glucose 123 H 133 H Ferritin AST Lactate Dehydrogenase C-Reactive Protein Coronavirus (PCR) 02/25/20 02/25/20 02/25/20 14:21 14:21 14:21 RBC MCHC Lymph # (Auto) Seg Neutrophils % D-Dimer 396.96 H Potassium Chloride Creatinine Glucose 163 H POC Glucose Ferritin 335.1 H AST Lactate Dehydrogenase 406 H C-Reactive Protein 6.10 H Coronavirus (PCR) 02/25/20 02/25/20 02/26/20 16:17 22:45 07:55 RBC MCHC Lymph # (Auto) Seg Neutrophils % D-Dimer Potassium Chloride Creatinine Glucose POC Glucose 124 H 154 H 124 H Ferritin AST Lactate Dehydrogenase C-Reactive Protein Coronavirus (PCR) 02/26/20 02/26/2002/25/20 10:45 12:10 16:51 RBC MCHC Lymph # (Auto) Seg Neutrophils % D-Dimer Potassium Chloride Creatinine Glucose POC Glucose 121 H 129 H Ferritin AST Lactate Dehydrogenase C-Reactive Protein Coronavirus (PCR) Positive A 02/26/20 02/27/20 02/27/20 22:00 07:58 12:04 RBC MCHC Lymph # (Auto) Seg Neutrophils % D-Dimer Potassium Chloride Creatinine Glucose POC Glucose 134 H 115 H 146 H Ferritin AST Lactate Dehydrogenase C-Reactive Protein Coronavirus (PCR) 02/27/20 17:21 RBC MCHC Lymph # (Auto) Seg Neutrophils % D-Dimer Potassium Chloride Creatinine Glucose POC Glucose 136 H Ferritin AST Lactate Dehydrogenase C-Reactive Protein Coronavirus (PCR)
[2020-02-28 17:07] LABS: C-Reactive Protein 6.1 mg/dL (0.00-1.30)
[2020-02-28 17:13] LABS: Alanine Aminotransferase 117 units/L (7-56); Blood Urea Nitrogen 23 mg/dL (7-17); Calcium 9.2 mg/dL (8.4-10.2); Hemolysis Index 48
[2020-02-28 17:14] LABS: BUN/Creatinine Ratio 58; Bilirubin,Direct < 0.2 mg/dL (0-0.2)
--- NOTE | 2020-02-28 19:44 | Vascular Lab Report ---
DUPLEX DOPPLER LOWER EXTREMITY VEINS, BILATERAL INDICATION / CLINICAL INFORMATION: r/o DVT. TECHNIQUE: Duplex doppler imaging was performed through the veins of both lower extremities using venous thierno robin and other maneuvers. COMPARISON: None available. FINDINGS: RIGHT COMMON FEMORAL VEIN: Negative. RIGHT FEMORAL VEIN: Negative. RIGHT POPLITEAL VEIN: Negative. RIGHT CALF VEINS: Negative. LEFT COMMON FEMORAL VEIN: Negative. LEFT FEMORAL VEIN: Negative. LEFT POPLITEAL VEIN: Negative. LEFT CALF VEINS: Negative. ADDITIONAL FINDINGS: None. IMPRESSION: 1. No sonographic evidence for DVT in either lower extremity. Signer Name: Florencio Bonilla MD Signed: 02/28/2020 7:40 PM Workstation Name: [id number]
[2020-02-28] MEDS: REMDESIVIR 100 MG in SODIUM CHLORIDE 0.9% 250ML 250 ML IV SCH (22:16)
[2020-02-28] MEDS: SODIUM CHLORIDE 0.9% 50 ML IVPB IV SCH (22:16)
[2020-02-29] MEDS: methylPREDNISolone Sod Succinate 40 MG/1 ML INJ IV SCH ×3 (05:33→22:44)
[2020-02-29] MEDS: HYDROcodone/HOMATROPINE 5-1.5MG /5 ML ORAL LIQD UNIT DOSE PO PRN ×2 (05:33→13:42)
--- NOTE | 2020-02-29 07:39 | Progress Note ---
Assessment and Plan Cultures: Blood culture no growth today SARS CoV2 PCR positive SARS Covid 2 IgG positive Assessment: 50 years old female with history of obesity, admitted on 02/24/2020 secondary to 2-week history of feeling sick with dry cough, fever, generalized malaise, shortness of breath, dyspnea on exertion, nausea, vomiting, diarrhea, loss of smell and taste: #Severe sepsis: Remains hypoxia likely due to bilateral pneumonia. #Severe COVID pneumonia: Chest x-ray with bilateral patchy infiltrates. In flammatory markers elevated, worsening, D-dimer is up. Procalcitonin normal. Venous ultrasound no DVT. #Acute hypoxemic respiratory failure: O2 sats dropped to 93%, ambulation to 88%. Worsening now on high flow nasal cannula 100%, 40 L #Elevated LFTs: from COVID #Obesity: Associated with worse outcomes. Recommendations: -Obtain CTA rule out PE -SARS-CoV-2 IgG positive, patient is not a candidate for Covid convalescent plasma -Steroids per pulmonary -Continue remdesivir total 5 days-D2 of 5 -Monitor inflammatory markers - ferritin, Ddimer, CRP, LDH-ordered today -Monitor liver function test on Remdesivir -Continue anticoagulation per System Protocol -Prone positioning as possible -Pulmonary on board Close monitoring risk for deterioration requiring intubation All laboratory, cultures and imaging were reviewed. Will follow Mar Reyna MD Infectious Diseases Route [facility] ([facility]) M [phone] O [phone] Subjective Date of service: 02/29/20 Principal diagnosis: Severe COVID-19 Interval history: Remains on high flow nasal cannula 100%, 40 L, desatted to 85%, no fever. Objective - Exam Narrative Exam: Physical Exam: reviewed ED and hospitalist notes. Deferred to prevent COVID-19 transmission. - - Constitutional Vitals: Vital Signs Temp Pulse Resp BP Pulse Ox 98.3 F 78 22 109/61 85 02/29/20 04:58 02/29/20 04:58 02/29/20 04:58 02/29/20 04:58 02/29/20 04:58 Temperature -Last 24 Hours Temperature 98.3 F Temperature 98.1 F Temperature 98.0 F - Labs CBC & Chem 7: 02/25/20 05:16 02/28/20 16:03 Labs: Abnormal lab results 02/28/20 02/28/20 02/28/20 Range/Units 16:03 16:03 16:03 D-Dimer 995.51 H (0-234) ng/mlDDU BUN (7-17) mg/dL Creatinine (0.6-1.2) mg/dL Glucose (65-100) mg/dL POC Glucose (70-105) mg/dL Ferritin 464.3 H (10.0-200.0) ng/mL AST (5-40) units/L ALT (7-56) units/L Alkaline Phosphatase (35-129) units/L Lactate Dehydrogenase 779 H (91-180) units/L C-Reactive Protein 6.10 H (0.00-1.30) mg/dL Albumin (3.9-5) g/dL SARS-CoV-2 IgG Ab (NonReactive) 02/28/20 02/28/20 02/28/20 Range/Units 16:03 16:03 22:06 D-Dimer (0-234) ng/mlDDU BUN 23 H (7-17) mg/dL Creatinine 0.4 L (0.6-1.2) mg/dL Glucose 120 H (65-100) mg/dL POC Glucose 119 H (70-105) mg/dL Ferritin (10.0-200.0) ng/mL AST 72 H (5-40) units/L ALT 117 H (7-56) units/L Alkaline Phosphatase 137 H (35-129) units/L Lactate Dehydrogenase (91-180) units/L C-Reactive Protein (0.00-1.30) mg/dL Albumin 3.0 L (3.9-5) g/dL SARS-CoV-2 IgG Ab Reactive A (NonReactive)
[2020-02-29] MEDS: HEPARIN 5,000 UNIT/1 ML VIAL SUB-Q SCH ×2 (09:01→21:56)
[2020-02-29] MEDS: FAMOTIDINE 10 MG TAB PO SCH ×2 (09:03→21:56)
[2020-02-29] MEDS: BENZONATATE 100 MG CAP PO SCH ×2 (09:03→21:56)
--- NOTE | 2020-02-29 11:39 | Progress Note ---
Assessment and Plan Patient alert, awake. Having cough. Having mild shortness of breath at rest. Patient is on vapotherm, FIO2 100% and O2 saturation 90%. Patient switched to BIPAP. But patient not using it.Patient afebrile. No leukocytosis. Complaining headache at times.Patients Huynh virus PCR is Positive. Patients chest xray done 02/24/20 reported Patchy bilateral pulmonary opacities are concerning for infection/pneumonia. Atypical/viral etiologies should be considered. Patients inflammatory markers Ferritin 464.3 LDH 779 C reactive protein 6.1 Troponin .01 D Dimer 995.1 Patient is on REMDESIVIR, Methyl prednisone and S/C Heparin. Patient has CTA of chest 02/29/[address] evidence for pulmonary embolism. Diffuse bilateral airspace disease. The imaging appearance is nonspecific and could be seen in the setting of bacterial pneumonia or atypical/viral etiologies. There is mild mediastinal adenopathy. No associated effusions. Patient has venous doppler studies of legs 02/29/20 reported No sonographic evidence for DVT in either lower extremity. - Patient Problems (1) Acute hypoxemic respiratory failure Current Visit: Yes Status: Acute Plan to address problem: Patient is on high flow O2, Vapotherm 100% Albuterol inhaler. I/V Methyl prednisone S/C Heparin. (2) Obesity hypoventilation syndrome Current Visit: Yes Status: Acute Plan to address problem: Recommend to loose weight. Obtaining ABGs on room air. (3) Pneumonia Current Visit: Yes Status: Acute Qualifiers: Laterality: bilateral Plan to address problem: Patient is on REMDESIVIR and Methyl prednisone (4) Suspected 2019-nCoV infection Current Visit: Yes Status: Acute Plan to address problem: Patients Huynh virus PCR is positive. Patient is on REMDESIVIR, Methyl prednisone and S/C Heparin. Subjective Date of service: 02/29/20 Principal diagnosis: Severe COVID-19 Interval history: Patient alert, awake. Having cough. Having mild shortness of breath at rest. Patient is on vapotherm, FIO2 100% and O2 saturation 90%. Patient switched to BIPAP. But patient not using it.Patient afebrile. No leukocytosis. Complaining headache at times.Patients Huynh virus PCR is Positive. Patients chest xray done 02/24/20 reported Patchy bilateral pulmonary opacities are concerning for infection/pneumonia. Atypical/viral etiologies should be considered. Patients inflammatory markers Ferritin 464.3 LDH 779 C reactive protein 6.1 Troponin .01 D Dimer 995.1 Patient is on REMDESIVIR, Methyl prednisone and S/C Heparin. Patient has CTA of chest 02/29/[address] evidence for pulmonary embolism. Diffuse bilateral airspace disease. The imaging appearance is nonspecific and could be seen in the setting of bacterial pneumonia or atypical/viral etiologies. There is mild mediastinal adenopathy. No associated effusions. Patient has venous doppler studies of legs 02/29/20 reported No sonographic evidence for DVT in either lower extremity. Objective Vital Signs - 12hr 02/29/20 02/29/20 02/29/20 02:45 04:58 08:26 Temperature 98.3 F Pulse Rate 78 Respiratory 22 Rate Blood Pressure 109/61 O2 Sat by Pulse 89 85 94 Oximetry Constitutional: alert, appears uncomfortable, other (Having cough) Eyes: non-icteric Neck: supple, no lymphadenopathy Effort: mildly labored Ascultation: Bilateral: rhonchi Cardiovascular: regular rate and rhythm Gastrointestinal: normoactive bowel sounds, soft, non-tender Integumentary: normal Extremities: no cyanosis, no edema Neurologic: non-focal exam, pupils equal and round Psychiatric: mood appropriate CBC and BMP: 02/25/20 05:16 02/28/20 16:03 ABG, PT/INR, D-dimer: PT/INR, D-dimer D-Dimer 995.51 ng/mlDDU (0-234) H 02/28/20 16:03 Abnormal lab findings: Abnormal Labs 02/24/20 02/24/20 02/24/20 12:07 12:07 12:07 RBC MCHC 35 H Lymph # (Auto) Seg Neutrophils % 76.6 H D-Dimer 236.88 H Potassium 3.4 L Chloride BUN Creatinine Glucose POC Glucose Ferritin AST 42 H ALT Alkaline Phosphatase Lactate Dehydrogenase C-Reactive Protein Albumin Coronavirus (PCR) SARS-CoV-2 IgG Ab 02/24/20 02/24/20 02/25/20 12:07 12:07 05:16 RBC 3.53 L MCHC Lymph # (Auto) 1.1 L Seg Neutrophils % 75.0 H D-Dimer Potassium Chloride BUN Creatinine Glucose 101 H POC Glucose Ferritin 200.8 H AST ALT Alkaline Phosphatase Lactate Dehydrogenase 315 H C-Reactive Protein 12.00 H Albumin Coronavirus (PCR) SARS-CoV-2 IgG Ab 02/25/20 02/25/20 02/25/20 05:16 08:21 11:52 RBC MCHC Lymph # (Auto) Seg Neutrophils % D-Dimer Potassium Chloride 109.8 H BUN Creatinine 0.4 L Glucose 143 H POC Glucose 123 H 133 H Ferritin AST ALT Alkaline Phosphatase Lactate Dehydrogenase C-Reactive Protein Albumin Coronavirus (PCR) SARS-CoV-2 IgG Ab 02/25/20 02/25/20 02/25/20 14:21 14:21 14:21 RBC MCHC Lymph # (Auto) Seg Neutrophils % D-Dimer 396.96 H Potassium Chloride BUN Creatinine Glucose 163 H POC Glucose Ferritin 335.1 H AST ALT Alkaline Phosphatase Lactate Dehydrogenase 406 H C-Reactive Protein 6.10 H Albumin Coronavirus (PCR) SARS-CoV-2 IgG Ab 02/25/20 02/25/20 02/26/20 16:17 22:45 07:55 RBC MCHC Lymph # (Auto) Seg Neutrophils % D-Dimer Potassium Chloride BUN Creatinine Glucose POC Glucose 124 H 154 H 124 H Ferritin AST ALT Alkaline Phosphatase Lactate Dehydrogenase C-Reactive Protein Albumin Coronavirus (PCR) SARS-CoV-2 IgG Ab 02/26/20 02/26/20 02/26/20 10:45 12:10 16:51 RBC MCHC Lymph # (Auto) Seg Neutrophils % D-Dimer Potassium Chloride BUN Creatinine Glucose POC Glucose 121 H 129 H Ferritin AST ALT Alkaline Phosphatase Lactate Dehydrogenase C-Reactive Protein Albumin Coronavirus (PCR) Positive A SARS-CoV-2 IgG Ab 02/26/20 02/27/20 02/27/20 22:00 07:58 12:04 RBC MCHC Lymph # (Auto) Seg Neutrophils % D-Dimer Potassium Chloride BUN Creatinine Glucose POC Glucose 134 H 115 H 146 H Ferritin AST ALT Alkaline Phosphatase Lactate Dehydrogenase C-Reactive Protein Albumin Coronavirus (PCR) SARS-CoV-2 IgG Ab 02/27/20 02/28/20 02/28/20 17:21 16:03 16:03 RBC MCHC Lymph # (Auto) Seg Neutrophils % D-Dimer 995.51 H Potassium Chloride BUN Creatinine Glucose POC Glucose 136 H Ferritin 464.3 H AST ALT Alkaline Phosphatase Lactate Dehydrogenase C-Reactive Protein Albumin Coronavirus (PCR) SARS-CoV-2 IgG Ab 02/28/20 02/28/20 02/28/20 16:03 16:03 16:03 RBC MCHC Lymph # (Auto) Seg Neutrophils % D-Dimer Potassium Chloride BUN 23 H Creatinine 0.4 L Glucose 120 H POC Glucose Ferritin AST 72 H ALT 117 H Alkaline Phosphatase 137 H Lactate Dehydrogenase 779 H C-Reactive Protein 6.10 H Albumin 3.0 L Coronavirus (PCR) SARS-CoV-2 IgG Ab Reactive A 02/28/20 02/29/20 02/29/20 22:06 07:38 11:11 RBC MCHC Lymph # (Auto) Seg Neutrophils % D-Dimer Potassium Chloride BUN Creatinine Glucose POC Glucose 119 H 121 H 129 H Ferritin AST ALT Alkaline Phosphatase Lactate Dehydrogenase C-Reactive Protein Albumin Coronavirus (PCR) SARS-CoV-[address] scan - chest: report reviewed, image reviewed Prior PFT's, U/S of legs: report reviewed, image reviewed Additional Studies: CTA CHEST WITH IV CONTRAST 02/29/20 INDICATION: Chest pain, shortness of breath. Covid positive.. TECHNIQUE: Axial CT images were obtained through the chest after injection of 100 cc Omnipaque 350 IV contrast. 3 plane MIP reconstructions were produced. All CT scans at this location are performed using CT dose reduction for ALARA by means of automated exposure control. COMPARISON: None available. FINDINGS: Pulmonary Arteries: No pulmonary emboli. Thoracic Aorta: No acute abnormality. Heart: Normal. Lungs: There is extensive, diffuse bilateral airspace disease. Pleura: No pleural effusion. No pneumothorax. Lymph Nodes: There is mild mediastinal adenopathy greatest in the lateral aortic region. Additional Findings: None. Upper Abdomen: No acute findings. Skeletal Structures: No significant osseous abnormality. IMPRESSION: 1. No CT evidence for pulmonary embolism. 2. Diffuse bilateral airspace disease. The imaging appearance is nonspecific and could be seen in the setting of bacterial pneumonia or atypical/viral etiologies. There is mild mediastinal adenopathy. No associated effusions. DUPLEX DOPPLER LOWER EXTREMITY VEINS, BILATERAL INDICATION / CLINICAL INFORMATION: r/o DVT. TECHNIQUE: Duplex doppler imaging was performed through the veins of both lower extremities using venous compression and other maneuvers. COMPARISON: None available. FINDINGS: RIGHT COMMON FEMORAL VEIN: Negative. RIGHT FEMORAL VEIN: Negative. RIGHT POPLITEAL VEIN: Negative. RIGHT CALF VEINS: Negative. LEFT COMMON FEMORAL VEIN: Negative. LEFT FEMORAL VEIN: Negative. LEFT POPLITEAL VEIN: Negative. LEFT CALF VEINS: Negative. ADDITIONAL FINDINGS: None. IMPRESSION: 1. No sonographic evidence for DVT in either lower extremity.
--- NOTE | 2020-02-29 16:09 | Cat Scan Report ---
CTA CHEST WITH IV CONTRAST INDICATION: Chest pain, shortness of breath. Covid positive.. TECHNIQUE: Axial CT images were obtained through the chest after injection of 100 cc Omnipaque 350 IV contrast. 3 plane MIP reconstructions were produced. All CT scans at this location are performed using CT dose reduction for ALARA by means of automated exposure control. COMPARISON: None available. FINDINGS: Pulmonary Arteries: No pulmonary emboli. Thoracic Aorta: No acute abnormality. Heart: Normal. Lungs: There is extensive, diffuse bilateral airspace disease. Pleura: No pleural effusion. No pneumothorax. Lymph Nodes: There is mild mediastinal adenopathy greatest in the lateral aortic region. Additional Findings: None. Upper Abdomen: No acute findings. Skeletal Structures: No significant osseous abnormality. IMPRESSION: 1. No CT evidence for pulmonary embolism. 2. Diffuse bilateral airspace disease. The imaging appearance is nonspecific and could be seen in the setting of bacterial pneumonia or atypical/viral etiologies. There is mild mediastinal adenopathy. N o associated effusions. Signer Name: Farooq Cavazos MD Signed: 02/29/2020 4:05 PM Workstation Name: [id number]
[2020-02-29] MEDS: REMDESIVIR 100 MG in SODIUM CHLORIDE 0.9% 250ML 250 ML IV SCH (21:56)
[2020-02-29] MEDS: ACETAMINOPHEN 325 MG TAB PO PRN (21:56)
[2020-02-29] MEDS: SODIUM CHLORIDE 0.9% 50 ML IVPB IV SCH (21:56)
--- NOTE | 2020-02-29 23:21 | Progress Note ---
Assessment and Plan Assessment and Plan - Patient Problems (1) Acute hypoxemic respiratory failure Current Visit: Yes Status: Acute Plan to address problem: Chest x-ray, supplemental oxygen, nebulizer therapy, prone positioning while in bed, pulmonary toilet, ambulate 3 times daily and as needed. Noninvasive positive pressure ventilation as clinically indicated. Patient requires increasing high flow supplemental oxygen to maintain pulse oximetry. Will consider transfer to IMCU/CCU if patient has worsening symptoms and does not respond to high flow supplemental oxygen. (2) Covid pneumonia Current Visit: Yes Status: Acute Plan to address problem: Patient is coronavirus PCR positive on 02/26/2020 Patient is also SARS-CoV-2 IgG positive Patient is not a candidate for Covid convalescent plasma Steroids Continue remdesivir for 5 days-today is day 2 of day 5 Continue anticoagulation Prone positioning as possible High flow oxygen (3) Pneumonia Current Visit: Yes Status: Acute Qualifiers: Laterality: bilateral Plan to address problem: Pneumonia protocol: Chest x-ray, CBC, CMP, supplemental oxygen, nebulizer therapy, pulse oximetry, IV antibiotic therapy, pulmonary toilet, blood culture. (4) severe sepsis Remains hypoxic likely due to bilateral pneumonia Continue IV antibiotics (5) DVT prophylaxis Current Visit: Yes Status: Acute Plan to address problem: High-dose Lovenox Subjective Date of service: 02/29/20 Principal diagnosis: Severe COVID-19 Interval history: 50 YO Female with Obesity Hypoventilation Syndrome presents to ED for evaluation. Patient states that she has "been feeling sick" for the past 2 weeks with persistent symptoms over the same timeframe. Patient was seen and evaluated by her primary care physician and treated with oral antibiotics for outpatient pneumonia. Patient states that she has experienced persistent symptoms in spite of of compliance with medication. Patient reports fever, dry cough, shortness of breath, decreased exercise tolerance, nausea, multiple episodes of vomiting, multiple loose stools, loss of sense of smell, loss of sense of taste, fatigue, malaise, body aches. Patient transported to [facility] via private vehicle for further care and evaluation of the aforementioned symptoms. Patient seen and evaluated in the emergency department. All lab and imaging studies reviewed. Patient found to have a fever to 102.1 F, as well as a pulse oximetry of 88% with exertion on room air which is consistent with acute hypoxemic respiratory failure. Patient underwent chest x-ray which revealed bilateral pneumonia. Patient admitted to medical floor and initiated on pneumonia protocol as well as coronavirus protocol. Coronavirus PCR ordered in the emergency department and is pending at time of admission. Patient acknowledges fever, but denies chest pain, palpitation, skin rash, recent ill contacts, trauma, or known exposure to COVID-19. No medication listed at time of admission. No prior admission for review. 02/29/2020 Patient alert, awake. Having cough. Having mild shortness of breath at rest. Patient is on vapotherm, FIO2 100% and O2 saturation 90%. Patient switched to BIPAP. But patient not using it.Patient afebrile. No leukocytosis. Complaining headache at times.Patients Huynh virus PCR is Positive. Patients chest xray done 02/24/20 reported Patchy bilateral pulmonary opacities are concerning for infection/pneumonia. Objective - Constitutional Vitals: Vital Signs - 12hr 02/29/20 02/29/20 02/29/20 12:26 13:35 17:13 Temperature 97.5 F L 99.1 F Pulse Rate 77 70 Respiratory 20 20 Rate Blood Pressure 124/63 122/38 O2 Sat by Pulse 90 89 98 Oximetry 02/29/20 02/29/20 21:17 21:29 Temperature 99.5 F Pulse Rate 79 Respiratory 40 H Rate Blood Pressure 103/39 O2 Sat by Pulse 90 88 Oximetry General appearance: Present: severe distress, well-nourished - EENT Eyes: PERRL, EOM intact ENT: hearing intact, clear oral mucosa Ears: bilateral: normal - Neck Neck: supple, normal ROM - Respiratory Respiratory effort: normal Respiratory: bilateral: CTA, rhonchi (Scattered rhonchi) - Breasts Breasts: normal - Cardiovascular Heart rate: 78 Rhythm: regular Heart Sounds: Present: S1 & S2. Absent: gallop, rub Extremities: pulses intact, No edema, normal color, Full ROM - Gastrointestinal General gastrointestinal: Present: soft, non-tender, non-distended, normal bowel sounds - Genitourinary Female genitourinary: normal - Integumentary Integumentary: clear, warm, dry - Musculoskeletal Musculoskeletal: 1, strength equal bilaterally - Neurologic Neurologic: moves all extremities - Psychiatric Psychiatric: memory intact, appropriate mood/affect, intact judgment & insight - Labs CBC & Chem 7: 02/25/20 05:16 02/28/20 16:03 Labs: Abnormal lab results 02/29/20 02/29/20 02/29/20 Range/Units 07:38 11:11 15:58 POC Glucose 121 H 129 H 118 H (70-105) mg/dL 02/29/20 Range/Units 22:02 POC Glucose 141 H (70-105) mg/dL HEART Score - HEART Score Troponin: Troponin T < 0.010 ng/mL (0.00-0.029) 02/28/20 16:03
[2020-03-01] MEDS: traMADol 50 MG TAB PO PRN ×2 (00:07→23:21)
[2020-03-01] MEDS: methylPREDNISolone Sod Succinate 40 MG/1 ML INJ IV SCH ×3 (05:35→23:07)
[2020-03-01 06:44] LABS: Hemoglobin 11.6 gm/dl (10.1-14.3); Mean Corpuscular HGB Conc 33 % (30-34); Mean Corpuscular Volume 90 fl (79-97); Platelet Count 364 K/mm3 (140-440); Red Blood Count 3.87 M/mm3 (3.65-5.03); Red Cell Distribution Width 13.9 % (13.2-15.2)
[2020-03-01 07:06] LABS: Alanine Aminotransferase 63 units/L (7-56); Albumin 2.9 g/dL (3.9-5); Blood Urea Nitrogen 19 mg/dL (7-17); Calcium 8.9 mg/dL (8.4-10.2); Hemolysis Index 1
[2020-03-01 07:19] LABS: BUN/Creatinine Ratio 63; Bilirubin,Direct < 0.2 mg/dL (0-0.2)
[2020-03-01 09:09] LABS: Total Cells Counted 100
[2020-03-01 09:10] LABS: Anisocytosis 1+; Platelet Estimate Consistent w Auto
--- NOTE | 2020-03-01 09:11 | Progress Note ---
Assessment and Plan Cultures: Blood culture no growth today SARS CoV2 PCR positive SARS Covid 2 IgG positive Assessment: 50 years old female with history of obesity, admitted on 02/24/2020 secondary to 2-week history of feeling sick with dry cough, fever, generalized malaise, shortness of breath, dyspnea on exertion, nausea, vomiting, diarrhea, loss of smell and taste: #Severe sepsis: Remains hypoxia likely due to bilateral pneumonia. #Severe COVID pneumonia: Chest x-ray with bilateral patchy infiltrates. In flammatory markers elevated, worsening, D-dimer is up. Procalcitonin normal. Venous ultrasound no DVT. CTA shows no pulmonary embolism, bilateral pneumonia positive. #Acute hypoxemic respiratory failure: O2 sats dropped to 93%, ambulation to 88%. Worsening remains on high flow nasal cannula 100%, 40 L, sats dropped 88% overnight. #Elevated D-dimer: CTA without PE, venous ultrasound without DVT #Elevated LFTs: from COVID #Obesity: Associated with worse outcomes. Recommendations: -Obtain transthoracic echo, BNP -SARS-CoV-2 IgG positive, patient is not a candidate for Covid convalescent plasma -Steroids per pulmonary -Continue remdesivir total 5 days-D3 of 5 -Monitor inflammatory markers - ferritin, Ddimer, CRP, LDH -Monitor liver function test on Remdesivir -Continue anticoagulation per System Protocol -Prone positioning as possible -Pulmonary on board Close monitoring risk for deterioration requiring intubation, , consider close monitoring IMCU All laboratory, cultures and imaging were reviewed. Will follow Mar Reyna MD Infectious Diseases Careers Counsellor [facility] [phone] O [phone] Subjective Date of service: 03/01/20 Principal diagnosis: Severe COVID-19 Interval history: Remains on high flow nasal cannula 100%, 40 L, desatted to 88%, no fever. Objective - Exam Narrative Exam: Physical Exam: reviewed ED and hospitalist notes. Deferred to prevent COVID-19 transmission. - - Constitutional Vitals: Vital Signs Temp Pulse Resp BP Pulse Ox 98.6 F 77 40 H 115/68 94 03/01/20 04:30 03/01/20 04:30 03/01/20 04:30 03/01/20 04:30 03/01/20 04:30 Temperature -Last 24 Hours Temperature 98.6 F Temperature 99.5 F Temperature 99.1 F Temperature 97.5 F - Labs CBC & Chem 7: 03/01/20 05:23 03/01/20 05:23 Labs: Abnormal lab results 02/29/20 02/29/20 02/29/20 Range/Units 11:11 15:58 22:02 WBC (4.5-11.0) K/mm3 D-Dimer (0-234) ng/mlDDU BUN (7-17) mg/dL Creatinine (0.6-1.2) mg/dL Glucose (65-100) mg/dL POC Glucose 129 H 118 H 141 H (70-105) mg/dL Ferritin (10.0-200.0) ng/mL ALT (7-56) units/L Alkaline Phosphatase (35-129) units/L Lactate Dehydrogenase (91-180) units/L C-Reactive Protein (0.00-1.30) mg/dL Albumin (3.9-5) g/dL 03/01/20 03/01/20 03/01/20 Range/Units 05:23 05:23 05:23 WBC (4.5-11.0) K/mm3 D-Dimer 1841.84 H (0-234) ng/mlDDU BUN 19 H (7-17) mg/dL Creatinine 0.3 L (0.6-1.2) mg/dL Glucose 145 H (65-100) mg/dL POC Glucose (70-105) mg/dL Ferritin 323.9 H (10.0-200.0) ng/mL ALT 63 H (7-56) units/L Alkaline Phosphatase 132 H (35-129) units/L Lactate Dehydrogenase 746 H (91-180) units/L C-Reactive Protein 6.80 H (0.00-1.30) mg/dL Albumin 2.9 L (3.9-5) g/dL 03/01/20 03/01/20 Range/Units 05:23 06:30 WBC 17.6 H (4.5-11.0) K/mm3 D-Dimer (0-234) ng/mlDDU BUN (7-17) mg/dL Creatinine (0.6-1.2) mg/dL Glucose (65-100) mg/dL POC Glucose 132 H (70-105) mg/dL Ferritin (10.0-200.0) ng/mL ALT (7-56) units/L Alkaline Phosphatase (35-129) units/L Lactate Dehydrogenase (91-180) units/L C-Reactive Protein (0.00-1.30) mg/dL Albumin (3.9-5) g/dL
[2020-03-01] MEDS: ENOXAPARIN 80 MG/0.8 ML INJ SUB-Q SCH ×2 (11:39→23:32)
[2020-03-01] MEDS: ASCORBIC ACID 500 MG TAB PO SCH ×3 (11:39→23:18)
[2020-03-01] MEDS: BENZONATATE 100 MG CAP PO SCH ×2 (11:40→23:20)
[2020-03-01] MEDS: FAMOTIDINE 10 MG TAB PO SCH ×2 (11:40→23:19)
[2020-03-01] MEDS: CHOLECALCIFEROL (VIT D3) 5,000 UNIT TAB PO SCH (11:40)
[2020-03-01] MEDS: ACETAMINOPHEN 325 MG TAB PO PRN (13:26)
[2020-03-01] MEDS: HYDROcodone/HOMATROPINE 5-1.5MG /5 ML ORAL LIQD UNIT DOSE PO PRN (13:27)
--- NOTE | 2020-03-01 14:34 | Progress Note ---
Assessment and Plan Patient alert, awake. Having cough. Having mild shortness of breath at rest. Patient is on vapotherm, FIO2 100% as well as non rebreathing mask,and O2 saturation 95%. Patient has BIPAP stand by in the room. But patient not using it.Patient afebrile. No leukocytosis. Complaining headache at times.Patients Huynh virus PCR is Positive. Patients chest xray done 02/24/20 reported Patchy bilateral pulmonary opacities are concerning for infection/pneumonia. Atypical/viral etiologies should be considered. Patients inflammatory markers Ferritin 323.9 LDH 746 C reactive protein 6.8 Troponin .01 D Dimer 1841.84 Patient is on REMDESIVIR, Methyl prednisone and S/C Lovenox 80 mg q 12 hours. Patient has CTA of chest 02/29/[address] evidence for pulmonary embolism. Diffuse bilateral airspace disease. The imaging appearance is nonspecific and could be seen in the setting of bacterial pneumonia or atypical/viral etiologies. There is mild mediastinal adenopathy. No associated effusions. Patient has venous doppler studies of legs 02/29/20 reported No sonographic evidence for DVT in either lower extremity. ABG on 100% FIO2. ABG pH 7.463 (7.320-7.450) H 03/01/20 08:53 POC ABG pCO2 40.0 mmHg (32.0-48.0) 03/01/20 08:53 POC ABG pO2 71.9 mmHg (83-108) L 03/01/20 08:53 POC ABG HCO3 28.0 03/01/20 08:53 - Patient Problems (1) Acute hypoxemic respiratory failure Current Visit: Yes Status: Acute Plan to address problem: Patient is on high flow O2, Vapotherm 100% Albuterol inhaler. I/V Methyl prednisone S/C Lovenox (2) Obesity hypoventilation syndrome Current Visit: Yes Status: Acute Plan to address problem: Recommend to loose weight. ABG on 100% FIO2. ABG pH 7.463 (7.320-7.450) H 03/01/20 08:53 POC ABG pCO2 40.0 mmHg (32.0-48.0) 03/01/20 08:53 POC ABG pO2 71.9 mmHg (83-108) L 03/01/20 08:53 POC ABG HCO3 28.0 03/01/20 08:53 ABG results not suggestive of Obesity hypoventilation. Recommend sleep study as out patient. (3) Pneumonia Current Visit: Yes Status: Acute Qualifiers: Laterality: bilateral Plan to address problem: Patient is on REMDESIVIR and Methyl prednisone Antibiotics as per infectious diseases. (4) Suspected 2019-nCoV infection Current Visit: Yes Status: Acute Plan to address problem: Patients Huynh virus PCR is positive. Patient is on REMDESIVIR, Methyl prednisone and S/C Lovenox. Subjective Date of service: 03/01/20 Principal diagnosis: Severe COVID-19 Interval history: Patient alert, awake. Having cough. Having mild shortness of breath at rest. Patient is on vapotherm, FIO2 100% as well as non rebreathing mask,and O2 saturation 95%. Patient has BIPAP stand by in the room. But patient not using it.Patient afebrile. No leukocytosis. Complaining headache at times.Patients Huynh virus PCR is Positive. Patients chest xray done 02/24/20 reported Patchy bilateral pulmonary opacities are concerning for infection/pneumonia. At ypical/viral etiologies should be considered. Patients inflammatory markers Ferritin 323.9 LDH 746 C reactive protein 6.8 Troponin .01 D Dimer 1841.84 Patient is on REMDESIVIR, Methyl prednisone and S/C Lovenox 80 mg q 12 hours. Patient has CTA of chest 02/29/[address] evidence for pulmonary embolism. Diffuse bilateral airspace disease. The imaging appearance is nonspecific and could be seen in the setting of bacterial pneumonia or atypical/viral etiologies. There is mild mediastinal adenopathy. No associated effusions. Patient has venous doppler studies of legs 02/29/20 reported No sonographic evidence for DVT in either lower extremity. ABG on 100% FIO2. ABG pH 7.463 (7.320-7.450) H 03/01/20 08:53 POC ABG pCO2 40.0 mmHg (32.0-48.0) 03/01/20 08:53 POC ABG pO2 71.9 mmHg (83-108) L 03/01/20 08:53 POC ABG HCO3 28.0 03/01/20 08:53 Objective Vital Signs - 12hr 03/01/20 03/01/20 03/01/20 02:38 04:10 04:20 Temperature Pulse Rate 89 Respiratory 32 H Rate Blood Pressure O2 Sat by Pulse 90 88 96 Oximetry 03/01/20 03/01/20 03/01/20 04:30 09:11 09:25 Temperature 98.6 F Pulse Rate 77 77 Respiratory 40 H 40 H Rate Blood Pressure 115/68 115/68 O2 Sat by Pulse 94 94 94 Oximetry 03/01/20 13:37 Temperature Pulse Rate Respiratory Rate Blood Pressure O2 Sat by Pulse 94 Oximetry Constitutional: alert, appears uncomfortable, other (Having cough) Eyes: non-icteric Neck: supple, no lymphadenopathy Effort: mildly labored Ascultation: Bilateral: rhonchi Cardiovascular: regular rate and rhythm Gastrointestinal: normoactive bowel sounds, soft, non-tender Integumentary: normal Extremities: no cyanosis, no edema Neurologic: non-focal exam, pupils equal and round Psychiatric: mood appropriate CBC and BMP: 03/01/20 05:23 03/01/20 05:23 ABG, PT/INR, D-dimer: ABG ABG pH 7.463 (7.320-7.450) H 03/01/20 08:53 POC ABG pCO2 40.0 mmHg (32.0-48.0) 03/01/20 08:53 POC ABG pO2 71.9 mmHg (83-108) L 03/01/20 08:53 POC ABG HCO3 28.0 03/01/20 08:53 PT/INR, D-dimer D-Dimer 1841.84 ng/mlDDU (0-234) H 03/01/20 05:23 Abnormal lab findings: Abnormal Labs 02/24/20 02/24/20 02/24/20 12:07 12:07 12:07 WBC RBC MCHC 35 H Lymph # (Auto) Seg Neutrophils % 76.6 H Seg Neuts % (Manual) Lymphocytes % (Manual) Seg Neutrophils # Man Lymphocytes # (Manual) D-Dimer 236.88 H ABG pH POC ABG pO2 ABG Glucose Carboxyhemoglobin Potassium 3.4 L Chloride BUN Creatinine Glucose POC Glucose Ferritin AST 42 H ALT Alkaline Phosphatase Lactate Dehydrogenase C-Reactive Protein Albumin Arterial Blood Glucose Coronavirus (PCR) SARS-CoV-2 IgG Ab 02/24/20 02/24/20 02/25/20 12:07 12:07 05:16 WBC RBC 3.53 L MCHC Lymph # (Auto) 1.1 L Seg Neutrophils % 75.0 H Seg Neuts % (Manual) Lymphocytes % (Manual) Seg Neutrophils # Man Lymphocytes # (Manual) D-Dimer ABG pH POC ABG pO2 ABG Glucose Carboxyhemoglobin Potassium Chloride BUN Creatinine Glucose 101 H POC Glucose Ferritin 200.8 H AST ALT Alkaline Phosphatase Lactate Dehydrogenase 315 H C-Reactive Protein 12.00 H Albumin Arterial Blood Glucose Coronavirus (PCR) SARS-CoV-2 IgG Ab 02/25/20 02/25/20 02/25/20 05:16 08:21 11:52 WBC RBC MCHC Lymph # (Auto) Seg Neutrophils % Seg Neuts % (Manual) Lymphocytes % (Manual) Seg Neutrophils # Man Lymphocytes # (Manual) D-Dimer ABG pH POC ABG pO2 ABG Glucose Carboxyhemoglobin Potassium Chloride 109.8 H BUN Creatinine 0.4 L Glucose 143 H POC Glucose 123 H 133 H Ferritin AST ALT Alkaline Phosphatase Lactate Dehydrogenase C-Reactive Protein Albumin Arterial Blood Glucose Coronavirus (PCR) SARS-CoV-2 IgG Ab 02/25/20 02/25/20 02/25/20 14:21 14:21 14:21 WBC RBC MCHC Lymph # (Auto) Seg Neutrophils % Seg Neuts % (Manual) Lymphocytes % (Manual) Seg Neutrophils # Man Lymphocytes # (Manual) D-Dimer 396.96 H ABG pH POC ABG pO2 ABG Glucose Carboxyhemoglobin Potassium Chloride BUN Creatinine Glucose 163 H POC Glucose Ferritin 335.1 H AST ALT Alkaline Phosphatase Lactate Dehydrogenase 406 H C-Reactive Protein 6.10 H Albumin Arterial Blood Glucose Coronavirus (PCR) SARS-CoV-2 IgG Ab 02/25/20 02/25/20 02/26/20 16:17 22:45 07:55 WBC RBC MCHC Lymph # (Auto) Seg Neutrophils % Seg Neuts % (Manual) Lymphocytes % (Manual) Seg Neutrophils # Man Lymphocytes # (Manual) D-Dimer ABG pH POC ABG pO2 ABG Glucose Carboxyhemoglobin Potassium Chloride BUN Creatinine Glucose POC Glucose 124 H 154 H 124 H Ferritin AST ALT Alkaline Phosphatase Lactate Dehydrogenase C-Reactive Protein Albumin Arterial Blood Glucose Coronavirus (PCR) SARS-CoV-2 IgG Ab 02/26/20 02/26/20 02/26/20 10:45 12:10 16:51 WBC RBC MCHC Lymph # (Auto) Seg Neutrophils % Seg Neuts % (Manual) Lymphocytes % (Manual) Seg Neutrophils # Man Lymphocytes # (Manual) D-Dimer ABG pH POC ABG pO2 ABG Glucose Carboxyhemoglobin Potassium Chloride BUN Creatinine Glucose POC Glucose 121 H 129 H Ferritin AST ALT Alkaline Phosphatase Lactate Dehydrogenase C-Reactive Protein Albumin Arterial Blood Glucose Coronavirus (PCR) Positive A SARS-CoV-2 IgG Ab 02/26/20 02/27/20 02/27/20 22:00 07:58 12:04 WBC RBC MCHC Lymph # (Auto) Seg Neutrophils % Seg Neuts % (Manual) Lymphocytes % (Manual) Seg Neutrophils # Man Lymphocytes # (Manual) D-Dimer ABG pH POC ABG pO2 ABG Glucose Carboxyhemoglobin Potassium Chloride BUN Creatinine Glucose POC Glucose 134 H 115 H 146 H Ferritin AST ALT Alkaline Phosphatase Lactate Dehydrogenase C-Reactive Protein Albumin Arterial Blood Glucose Coronavirus (PCR) SARS-CoV-2 IgG Ab 02/27/20 02/28/20 02/28/20 17:21 16:03 16:03 WBC RBC MCHC Lymph # (Auto) Seg Neutrophils % Seg Neuts % (Manual) Lymphocytes % (Manual) Seg Neutrophils # Man Lymphocytes # (Manual) D-Dimer 995.51 H ABG pH POC ABG pO2 ABG Glucose Carboxyhemoglobin Potassium Chloride BUN Creatinine Glucose POC Glucose 136 H Ferritin 464.3 H AST ALT Alkaline Phosphatase Lactate Dehydrogenase C-Reactive Protein Albumin Arterial Blood Glucose Coronavirus (PCR) SARS-CoV-2 IgG Ab 02/28/20 02/28/20 02/28/20 16:03 16:03 16:03 WBC RBC MCHC Lymph # (Auto) Seg Neutrophils % Seg Neuts % (Manual) Lymphocytes % (Manual) Seg Neutrophils # Man Lymphocytes # (Manual) D-Dimer ABG pH POC ABG pO2 ABG Glucose Carboxyhemoglobin Potassium Chloride BUN 23 H Creatinine 0.4 L Glucose 120 H POC Glucose Ferritin AST 72 H ALT 117 H Alkaline Phosphatase 137 H Lactate Dehydrogenase 779 H C-Reactive Protein 6.10 H Albumin 3.0 L Arterial Blood Glucose Coronavirus (PCR) SARS-CoV-2 IgG Ab Reactive A 02/28/20 02/29/20 02/29/20 22:06 07:38 11:11 WBC RBC MCHC Lymph # (Auto) Seg Neutrophils % Seg Neuts % (Manual) Lymphocytes % (Manual) Seg Neutrophils # Man Lymphocytes # (Manual) D-Dimer ABG pH POC ABG pO2 ABG Glucose Carboxyhemoglobin Potassium Chloride BUN Creatinine Glucose POC Glucose 119 H 121 H 129 H Ferritin AST ALT Alkaline Phosphatase Lactate Dehydrogenase C-Reactive Protein Albumin Arterial Blood Glucose Coronavirus (PCR) SARS-CoV-2 IgG Ab 02/29/20 02/29/20 03/01/20 15:58 22:02 05:23 WBC RBC MCHC Lymph # (Auto) Seg Neutrophils % Seg Neuts % (Manual) Lymphocytes % (Manual) Seg Neutrophils # Man Lymphocytes # (Manual) D-Dimer 1841.84 H ABG pH POC ABG pO2 ABG Glucose Carboxyhemoglobin Potassium Chloride BUN Creatinine Glucose POC Glucose 118 H 141 H Ferritin AST ALT Alkaline Phosphatase Lactate Dehydrogenase C-Reactive Protein Albumin Arterial Blood Glucose Coronavirus (PCR) SARS-CoV-2 IgG Ab 03/01/20 03/01/20 03/01/20 05:23 05:23 05:23 WBC 17.6 H RBC MCHC Lymph # (Auto) Seg Neutrophils % Seg Neuts % (Manual) 96.0 H Lymphocytes % (Manual) 2.0 L Seg Neutrophils # Man 16.9 H Lymphocytes # (Manual) 0.4 L D-Dimer ABG pH POC ABG pO2 ABG Glucose Carboxyhemoglobin Potassium Chloride BUN 19 H Creatinine 0.3 L Glucose 145 H POC Glucose Ferritin 323.9 H AST ALT 63 H Alkaline Phosphatase 132 H Lactate Dehydrogenase 746 H C-Reactive Protein 6.80 H Albumin 2.9 L Arterial Blood Glucose Coronavirus (PCR) SARS-CoV-2 IgG Ab 03/01/20 03/01/20 03/01/20 06:30 08:53 11:07 WBC RBC MCHC Lymph # (Auto) Seg Neutrophils % Seg Neuts % (Manual) Lymphocytes % (Manual) Seg Neutrophils # Man Lymphocytes # (Manual) D-Dimer ABG pH 7.463 H POC ABG pO2 71.9 L ABG Glucose 147 H Carboxyhemoglobin 0.2 L Potassium Chloride BUN Creatinine Glucose POC Glucose 132 H 126 H Ferritin AST ALT Alkaline Phosphatase Lactate Dehydrogenase C-Reactive Protein Albumin Arterial Blood Glucose 147 H Coronavirus (PCR) SARS-CoV-2 IgG Ab
[2020-03-01] MEDS: SODIUM CHLORIDE 0.9% 50 ML IVPB IV SCH (23:08)
[2020-03-01] MEDS: REMDESIVIR 100 MG in SODIUM CHLORIDE 0.9% 250ML 250 ML IV SCH (23:08)
--- NOTE | 2020-03-02 00:51 | Progress Note ---
Assessment and Plan Assessment and Plan - Patient Problems (1) Acute hypoxemic respiratory failure Current Visit: Yes Status: Acute Plan to address problem: Chest x-ray, supplemental oxygen, nebulizer therapy, prone positioning while in bed, pulmonary toilet, ambulate 3 times daily and as needed. Noninvasive positive pressure ventilation as clinically indicated. Patient requires increasing high flow supplemental oxygen to maintain pulse oximetry. Will consider transfer to IMCU/CCU if patient has worsening symptoms and does not respond to high flow supplemental oxygen. (2) Covid pneumonia Current Visit: Yes Status: Acute Plan to address problem: Patient is coronavirus PCR positive on 02/26/2020 Patient is also SARS-CoV-2 IgG positive Patient is not a candidate for Covid convalescent plasma Steroids Continue remdesivir for 5 days-today is day 3 of day 5 Continue anticoagulation Prone positioning as possible High flow oxygen (3) Pneumonia Current Visit: Yes Status: Acute Qualifiers: Laterality: bilateral Plan to address problem: Pneumonia protocol: Chest x-ray, CBC, CMP, supplemental oxygen, nebulizer therapy, pulse oximetry, IV antibiotic therapy, pulmonary toilet, blood culture. (4) severe sepsis Remains hypoxic likely due to bilateral pneumonia Continue IV antibiotics (5) DVT prophylaxis Current Visit: Yes Status: Acute Plan to address problem: High-dose Lovenox Subjective Date of service: 03/01/20 Principal diagnosis: Severe COVID-19 Interval history: 50 YO Female with Obesity Hypoventilation Syndrome presents to ED for evaluation. Patient states that she has "been feeling sick" for the past 2 weeks with persistent symptoms over the same timeframe. Patient was seen and evaluated by her primary care physician and treated with oral antibiotics for outpatient pneumonia. Patient states that she has experienced persistent symptoms in spite of of compliance with medication. Patient reports fever, dry cough, shortness of breath, decreased exercise tolerance, nausea, multiple episodes of vomiting, multiple loose stools, loss of sense of smell, loss of sense of taste, fatigue, malaise, body aches. Patient transported to [facility] via private vehicle for further care and evaluation of the aforementioned symptoms. Patient seen and evaluated in the emergency department. All lab and imaging studies reviewed. Patient found to have a fever to 102.1 F, as well as a pulse oximetry of 88% with exertion on room air which is consistent with acute hypoxemic respiratory failure. Patient underwent chest x-ray which revealed bilateral pneumonia. Patient admitted to medical floor and initiated on pneumonia protocol as well as coronavirus protocol. Coronavirus PCR ordered in the emergency department and is pending at time of admission. Patient acknowledges fever, but denies chest pain, palpitation, skin rash, recent ill contacts, trauma, or known exposure to COVID-19. No medication listed at time of admission. No prior admission for review. 02/29/2020 Patient alert, awake. Having cough. Having mild shortness of breath at rest. Patient is on vapotherm, FIO2 100% and O2 saturation 90%. Patient switched to BIPAP. But patient not using it.Patient afebrile. No leukocytosis. Complaining headache at times.Patients Huyn[place] virus PCR is Positive. Patients chest xray done 02/24/20 reported Patchy bilateral pulmonary opacities are concerning for infection/pneumonia. 03/01/2020 03/01/2020 Patient on high flow oxygen and BiPAP Objective - Constitutional Vitals: Vital Signs - 12hr 03/01/20 03/01/20 03/01/20 13:37 15:53 20:00 Temperature 98.0 F Pulse Rate 79 Respiratory 18 Rate Blood Pressure 104/36 O2 Sat by Pulse 94 95 89 Oximetry 03/01/20 21:26 Temperature 99.0 F Pulse Rate 84 Respiratory 36 H Rate Blood Pressure 121/52 O2 Sat by Pulse 91 Oximetry General appearance: Present: mild distress, well-nourished - EENT Eyes: PERRL, EOM intact ENT: hearing intact, clear oral mucosa Ears: bilateral: normal - Neck Neck: supple, normal ROM - Respiratory Respiratory effort: normal Respiratory: bilateral: CTA - Breasts Breasts: normal - Cardiovascular Heart rate: 78 Rhythm: regular Heart Sounds: Present: S1 & S2. Absent: gallop, rub Extremities: pulses intact, No edema, normal color, Full ROM - Gastrointestinal General gastrointestinal: Present: soft, non-tender, non-distended, normal bowel sounds - Genitourinary Female genitourinary: normal - Integumentary Integumentary: clear, warm, dry - Musculoskeletal Musculoskeletal: 1, strength equal bilaterally - Neurologic Neurologic: moves all extremities - Psychiatric Psychiatric: memory intact, appropriate mood/affect, intact judgment & insight - Labs CBC & Chem 7: 03/01/20 05:23 03/01/20 05:23 Labs: Abnormal lab results 03/01/20 03/01/20 03/01/20 Range/Units 05:23 05:23 05:23 WBC (4.5-11.0) K/mm3 Seg Neuts % (Manual) (40.0-70.0) % Lymphocytes % (Manual) (13.4-35.0) % Seg Neutrophils # Man (1.8-7.7) K/mm3 Lymphocytes # (Manual) (1.2-5.4) K/mm3 D-Dimer 1841.84 H (0-234) ng/mlDDU ABG pH (7.320-7.450) POC ABG pO2 (83-108) mmHg ABG Glucose (65-95) mg/dL Carboxyhemoglobin (0.5-1.5) BUN 19 H (7-17) mg/dL Creatinine 0.3 L (0.6-1.2) mg/dL Glucose 145 H (65-100) mg/dL POC Glucose (70-105) mg/dL Ferritin 323.9 H (10.0-200.0) ng/mL ALT 63 H (7-56) units/L Alkaline Phosphatase 132 H (35-129) units/L Lactate Dehydrogenase 746 H (91-180) units/L C-Reactive Protein 6.80 H (0.00-1.30) mg/dL Albumin 2.9 L (3.9-5) g/dL Arterial Blood Glucose (65-95) mg/dL 03/01/20 03/01/20 03/01/20 Range/Units 05:23 06:30 08:53 WBC 17.6 H (4.5-11.0) K/mm3 Seg Neuts % (Manual) 96.0 H (40.0-70.0) % Lymphocytes % (Manual) 2.0 L (13.4-35.0) % Seg Neutrophils # Man 16.9 H (1.8-7.7) K/mm3 Lymphocytes # (Manual) 0.4 L (1.2-5.4) K/mm3 D-Dimer (0-234) ng/mlDDU ABG pH 7.463 H (7.320-7.450) POC ABG pO2 71.9 L (83-108) mmHg ABG Glucose 147 H (65-95) mg/dL Carboxyhemoglobin 0.2 L (0.5-1.5) BUN (7-17) mg/dL Creatinine (0.6-1.2) mg/dL Glucose (65-100) mg/dL POC Glucose 132 H (70-105) mg/dL Ferritin (10.0-200.0) ng/mL ALT (7-56) units/L Alkaline Phosphatase (35-129) units/L Lactate Dehydrogenase (91-180) units/L C-Reactive Protein (0.00-1.30) mg/dL Albumin (3.9-5) g/dL Arterial Blood Glucose 147 H (65-95) mg/dL 03/01/20 03/01/20 03/01/20 Range/Units 11:07 15:50 21:24 WBC (4.5-11.0) K/mm3 Seg Neuts % (Manual) (40.0-70.0) % Lymphocytes % (Manual) (13.4-35.0) % Seg Neutrophils # Man (1.8-7.7) K/mm3 Lymphocytes # (Manual) (1.2-5.4) K/mm3 D-Dimer (0-234) ng/mlDDU ABG pH (7.320-7.450) POC ABG pO2 (83-108) mmHg ABG Glucose (65-95) mg/dL Carboxyhemoglobin (0.5-1.5) BUN (7-17) mg/dL Creatinine (0.6-1.2) mg/dL Glucose (65-100) mg/dL POC Glucose 126 H 122 H 142 H (70-105) mg/dL Ferritin (10.0-200.0) ng/mL ALT (7-56) units/L Alkaline Phosphatase (35-129) units/L Lactate Dehydrogenase (91-180) units/L C-Reactive Protein (0.00-1.30) mg/dL Albumin (3.9-5) g/dL Arterial Blood Glucose (65-95) mg/dL HEART Score - HEART Score Troponin: Troponin T < 0.010 ng/mL (0.00-0.029) 02/28/20 16:03
[2020-03-02] MEDS: methylPREDNISolone Sod Succinate 40 MG/1 ML INJ IV SCH ×3 (05:32→22:14)
--- NOTE | 2020-03-02 09:42 | Progress Note ---
Assessment and Plan Cultures: Blood culture no growth today SARS CoV2 PCR positive SARS Covid 2 IgG positive Assessment: 50 years old female with history of obesity, admitted on 02/24/2020 secondary to 2-week history of feeling sick with dry cough, fever, generalized malaise, shortness of breath, dyspnea on exertion, nausea, vomiting, diarrhea, loss of smell and taste: #Severe sepsis: Remains hypoxia likely due to bilateral pneumonia. #Severe COVID pneumonia: Chest x-ray with bilateral patchy infiltrates. In flammatory markers elevated, worsening, D-dimer is up. Procalcitonin normal. Venous ultrasound no DVT. CTA shows no pulmonary embolism, bilateral pneumonia positive. #Acute hypoxemic respiratory failure: O2 sats dropped to 93%, ambulation to 88%. Worsening remains on BIPAP at night and high flow nasal cannula 100%, 40 L #Elevated D-dimer: CTA without PE, venous ultrasound without DVT #Elevated LFTs: from COVID #Obesity: Associated with worse outcomes. Recommendations: -Obtain transthoracic echo, BNP -pending -SARS-CoV-2 IgG positive, patient is not a candidate for Covid convalescent plasma -Steroids per pulmonary -Continue remdesivir total 5 days-D4 of 5 -Monitor inflammatory markers - ferritin, Ddimer, CRP, LDH -Monitor liver function test on Remdesivir -Continue anticoagulation per System Protocol -Prone positioning as possible -Pulmonary on board Close monitoring risk for deterioration requiring intubation, , consider close monitoring IMCU All laboratory, cultures and imaging were reviewed. Will follow Mar Reyna MD Infectious Diseases [facility] M [phone] O [phone] Subjective Principal diagnosis: Severe COVID-19 Objective - Constitutional Vitals: Vital Signs Temp Pulse Resp BP Pulse Ox 99.3 F 74 38 H 113/63 95 03/02/20 04:48 03/02/20 08:22 03/02/20 08:22 03/02/20 08:22 03/02/20 08:22 Temperature -Last 24 Hours Temperature 99.3 F Temperature 99.0 F Temperature 98.0 F - Labs CBC & Chem 7: 03/01/20 05:23 03/01/20 05:23 Labs: Abnormal lab results 03/01/20 03/01/20 03/01/20 Range/Units 08:53 11:07 15:50 ABG pH 7.463 H (7.320-7.450) POC ABG pO2 71.9 L (83-108) mmHg ABG Glucose 147 H (65-95) mg/dL Carboxyhemoglobin 0.2 L (0.5-1.5) POC Glucose 126 H 122 H (70-105) mg/dL Arterial Blood Glucose 147 H (65-95) mg/dL 03/01/20 03/02/20 Range/Units 21:24 08:08 ABG pH (7.320-7.450) POC ABG pO2 (83-108) mmHg ABG Glucose (65-95) mg/dL Carboxyhemoglobin (0.5-1.5) POC Glucose 142 H 152 H (70-105) mg/dL Arterial Blood Glucose (65-95) mg/dL
[2020-03-02] MEDS: ENOXAPARIN 80 MG/0.8 ML INJ SUB-Q SCH ×2 (10:37→22:15)
[2020-03-02] MEDS: FAMOTIDINE 10 MG TAB PO SCH ×2 (10:37→22:15)
[2020-03-02] MEDS: ASCORBIC ACID 500 MG TAB PO SCH ×2 (10:37→22:15)
[2020-03-02] MEDS: CHOLECALCIFEROL (VIT D3) 5,000 UNIT TAB PO SCH (10:37)
[2020-03-02] MEDS: BENZONATATE 100 MG CAP PO SCH ×2 (10:37→22:15)
[2020-03-02] MEDS: HYDROcodone/HOMATROPINE 5-1.5MG /5 ML ORAL LIQD UNIT DOSE PO PRN (18:25)
--- NOTE | 2020-03-02 19:38 | Progress Note ---
Assessment and Plan Assessment and Plan - Patient Problems (1) Acute hypoxemic respiratory failure Current Visit: Yes Status: Acute Plan to address problem: Patient on 40 L high flow oxygen (2) Covid pneumonia Current Visit: Yes Status: Acute Plan to address problem: Patient is coronavirus PCR positive on 02/26/2020 Patient is also SARS-CoV-2 IgG positive Patient is not a candidate for Covid convalescent plasma Steroids Continue remdesivir for 5 days-today is day 4 of day 5 Continue anticoagulation Prone positioning as possible High flow oxygen (3) Pneumonia Current Visit: Yes Status: Acute Qualifiers: Laterality: bilateral Plan to address problem: Pneumonia protocol: Chest x-ray, CBC, CMP, supplemental oxygen, nebulizer therapy, pulse oximetry, IV antibiotic therapy, pulmonary toilet, blood culture. (4) severe sepsis Remains hypoxic likely due to bilateral pneumonia Continue IV antibiotics (5) DVT prophylaxis Current Visit: Yes Status: Acute Plan to address problem: High-dose Lovenox Subjective Date of service: 03/02/20 Principal diagnosis: Severe COVID-19 Interval history: 50 YO Female with Obesity Hypoventilation Syndrome presents to ED for evaluation. Patient states that she has "been feeling sick" for the past 2 weeks with persistent symptoms over the same timeframe. Patient was seen and evaluated by her primary care physician and treated with oral antibiotics for outpatient pneumonia. Patient states that she has experienced persistent symptoms in spite of of compliance with medication. Patient reports fever, dry cough, shortness of breath, decreased exercise tolerance, nausea, multiple episodes of vomiting, multiple loose stools, loss of sense of smell, loss of sense of taste, fatigue, malaise, body aches. Patient transported to [facility] via private vehicle for further care and evaluation of the aforementioned symptoms. Patient seen and evaluated in the emergency department. All lab and imaging studies reviewed. Patient found to have a fever to 102.1 F, as well as a pulse oximetry of 88% with exertion on room air which is consistent with acute hypoxemic respiratory failure. Patient underwent chest x-ray which revealed bilateral pneumonia. Patient admitted to medical floor and initiated on pneumonia protocol as well as coronavirus protocol. Coronavirus PCR ordered in the emergency department and is pending at time of admission. Patient acknowledges fever, but denies chest pain, palpitation, skin rash, recent ill contacts, trauma, or known exposure to COVID-19. No medication listed at time of admission. No prior admission for review. 02/29/2020 Patient alert, awake. Having cough. Having mild shortness of breath at rest. Patient is on vapotherm, FIO2 100% and O2 saturation 90%. Patient switched to BIPAP. But patient not using it.Patient afebrile. No leukocytosis. Complaining headache at times.Patients Huynh virus PCR is Positive. Patients chest xray done 02/24/20 reported Patchy bilateral pulmonary opacities are concerning for infection/pneumonia. 03/01/2020 03/01/2020 Patient on high flow oxygen and BiPAP 03/02/2020 Patient still on high flow oxygen and BiPAP Objective - Constitutional Vitals: Vital Signs - 12hr 03/02/20 03/02/20 03/02/20 08:22 11:44 13:53 Temperature 98.9 F Pulse Rate 74 82 Respiratory 38 H 24 Rate Blood Pressure 113/63 104/43 O2 Sat by Pulse 95 97 92 Oximetry 03/02/20 03/02/20 16:53 18:34 Temperature 98.7 F Pulse Rate 89 Respiratory 24 Rate Blood Pressure 108/55 O2 Sat by Pulse 90 96 Oximetry General appearance: Present: severe distress, well-nourished - EENT Eyes: PERRL, EOM intact ENT: hearing intact, clear oral mucosa Ears: bilateral: normal - Neck Neck: supple, normal ROM - Respiratory Respiratory effort: normal Respiratory: bilateral: CTA, rhonchi (Scattered rhonchi) - Breasts Breasts: normal - Cardiovascular Heart rate: 98 Rhythm: regular Heart Sounds: Present: S1 & S2. Absent: gallop, rub Extremities: pulses intact, No edema, normal color, Full ROM - Gastrointestinal General gastrointestinal: Present: soft, non-tender, non-distended, normal bowel sounds - Genitourinary Female genitourinary: normal - Integumentary Integumentary: clear, warm, dry - Musculoskeletal Musculoskeletal: 1, strength equal bilaterally - Neurologic Neurologic: moves all extremities - Psychiatric Psychiatric: memory intact, appropriate mood/affect, intact judgment & insight - Labs CBC & Chem 7: 03/01/20 05:23 03/01/20 05:23 Labs: Abnormal lab results 03/01/20 03/02/20 03/02/20 Range/Units 21:24 08:08 11:41 POC Glucose 142 H 152 H 136 H (70-105) mg/dL 03/02/20 Range/Units 16:51 POC Glucose 137 H (70-105) mg/dL HEART Score - HEART Score Troponin: Troponin T < 0.010 ng/mL (0.00-0.029) 02/28/20 16:03
[2020-03-02] MEDS: traMADol 50 MG TAB PO PRN (20:46)
[2020-03-02] MEDS: REMDESIVIR 100 MG in SODIUM CHLORIDE 0.9% 250ML 250 ML IV SCH (22:16)
[2020-03-02] MEDS: SODIUM CHLORIDE 0.9% 50 ML IVPB IV SCH (22:38)
[2020-03-03] MEDS: methylPREDNISolone Sod Succinate 40 MG/1 ML INJ IV SCH ×2 (05:39→14:00)
[2020-03-03] MEDS: ASCORBIC ACID 500 MG TAB PO SCH (10:12)
[2020-03-03] MEDS: FAMOTIDINE 10 MG TAB PO SCH (10:12)
[2020-03-03] MEDS: CHOLECALCIFEROL (VIT D3) 5,000 UNIT TAB PO SCH (10:13)
[2020-03-03] MEDS: BENZONATATE 100 MG CAP PO SCH (10:13)
[2020-03-03] MEDS: ENOXAPARIN 80 MG/0.8 ML INJ SUB-Q SCH (10:13)
--- NOTE | 2020-03-03 13:03 | Progress Note ---
Assessment and Plan PUI-COVID -clinically and radiographically consistent with COVID infection await SARS-CoV-2 PCR -Obtain SARS-CoV-2 IgG Acute hypoxemic respiratory failure Severe sepsis: Present on admission with low-grade fever, tachycardia, hypoxia, likely due to bilateral pneumonia. Bilateral pneumonia Morbid obesity -With worsening inflammatory markers, on Vapotherm at 40L, 100% with ongoing episodic desaturations. CTA shows severe alveolar infiltrates, with minimal normal lung tissue- get stat ABG, transfer to ICU. Low threshold to intubate. -Stop Solumedrol, use dexamethasone. -SARS-CoV-2 IgG positive, not a candidate fro Convalescent plasma therapy -Conservative fluid management -Awake proning Discussed with primary attending and ICU staff Supplemental oxygen to keep O2 sats>90% Bronchodilators with pulmonary hygiene per RT Accuchecks with glycemic control per SSI (While critically ill target blood glucose of 140-180 mg/dL; avoid hypoglycemia) Monitor liver function test Avoid nephrotoxins, conservative fluid management Maintenance of sleep-wake cycle, avoid delirium ABG now to monitor alveolar infiltrates and P/F ratio CBC, BMP as clinically indicated Accuchecks with glycemic control. Keep blood glucose <180mg/dL, avoid hypoglycemia Monitor hemodynamics closely Continue steroids: on Solumedrol, start Dexamethasone and stop Solumedrol VTE prophylaxis- on therapeutic Lovenox for COVID Continue contact and airborne isolation per facility protocol .... Re-evaluate in am & prn .... Continue other care per attending / other consultants CONDITION: CRITICAL PROGNOSIS: GUARDED CODE STATUS: FULL CODE The high probability of a clinically significant, sudden or life-threatening deterioration of the [respiratory] system(s) required my full and direct attention, intervention and personal management. The aggregate critical care time was [32] minutes without overlap. Time includes spent on; [x] Data Review and interpretation [x] Patient assessment and monitoring of vital signs [x] Documentation [x] Medication orders and management Subjective Date of service: 03/03/20 Principal diagnosis: Severe COVID-19 Interval history: Follow up for : Acute hypoxemic respiratory failure ; COVID infection: Severe sepsis: Present on admission with low-grade fever, tachycardia, hypoxia, likely due to bilateral pneumonia. ;Bilateral pneumonia; Morbid obesity No acute overnight events reported. Worsening oxygenation and inflammatory markers No fevers, no nausea or vomiting. No diarrhea. Objective Vital Signs - 12hr 03/03/20 03/03/20 02:00 04:58 Temperature 98.0 F Pulse Rate 87 Respiratory 16 Rate Blood Pressure 93/42 O2 Sat by Pulse 85 92 Oximetry Constitutional: alert, appears uncomfortable, other (Having cough) Eyes: non-icteric Neck: supple, no lymphadenopathy Effort: mildly labored Ascultation: Bilateral: rhonchi Cardiovascular: regular rate and rhythm Gastrointestinal: normoactive bowel sounds, soft, non-tender Integumentary: normal Extremities: no cyanosis, no edema Neurologic: non-focal exam, pupils equal and round Psychiatric: mood appropriate CBC and BMP: 03/01/20 05:23 03/01/20 05:23 ABG, PT/INR, D-dimer: ABG ABG pH 7.463 (7.320-7.450) H 03/01/20 08:53 POC ABG pCO2 40.0 mmHg (32.0-48.0) 03/01/20 08:53 POC ABG pO2 71.9 mmHg (83-108) L 03/01/20 08:53 POC ABG HCO3 28.0 03/01/20 08:53 PT/INR, D-dimer D-Dimer 1841.84 ng/mlDDU (0-234) H 03/01/20 05:23 Abnormal lab findings: Abnormal Labs 02/24/20 02/24/20 02/24/20 12:07 12:07 12:07 WBC RBC MCHC 35 H Lymph # (Auto) Seg Neutrophils % 76.6 H Seg Neuts % (Manual) Lymphocytes % (Manual) Seg Neutrophils # Man Lymphocytes # (Manual) D-Dimer 236.88 H ABG pH POC ABG pO2 ABG Glucose Carboxyhemoglobin Potassium 3.4 L Chloride BUN Creatinine Glucose POC Glucose Ferritin AST 42 H ALT Alkaline Phosphatase Lactate Dehydrogenase C-Reactive Protein Albumin Arterial Blood Glucose Coronavirus (PCR) SARS-CoV-2 IgG Ab 02/24/20 02/24/20 02/25/20 12:07 12:07 05:16 WBC RBC 3.53 L MCHC Lymph # (Auto) 1.1 L Seg Neutrophils % 75.0 H Seg Neuts % (Manual) Lymphocytes % (Manual) Seg Neutrophils # Man Lymphocytes # (Manual) D-Dimer ABG pH POC ABG pO2 ABG Glucose Carboxyhemoglobin Potassium Chloride BUN Creatinine Glucose 101 H POC Glucose Ferritin 200.8 H AST ALT Alkaline Phosphatase Lactate Dehydrogenase 315 H C-Reactive Protein 12.00 H Albumin Arterial Blood Glucose Coronavirus (PCR) SARS-CoV-2 IgG Ab 02/25/20 02/25/20 02/25/20 05:16 08:21 11:52 WBC RBC MCHC Lymph # (Auto) Seg Neutrophils % Seg Neuts % (Manual) Lymphocytes % (Manual) Seg Neutrophils # Man Lymphocytes # (Manual) D-Dimer ABG pH POC ABG pO2 ABG Glucose Carboxyhemoglobin Potassium Chloride 109.8 H BUN Creatinine 0.4 L Glucose 143 H POC Glucose 123 H 133 H Ferritin AST ALT Alkaline Phosphatase Lactate Dehydrogenase C-Reactive Protein Albumin Arterial Blood Glucose Coronavirus (PCR) SARS-CoV-2 IgG Ab 02/25/20 02/25/20 02/25/20 14:21 14:21 14:21 WBC RBC MCHC Lymph # (Auto) Seg Neutrophils % Seg Neuts % (Manual) Lymphocytes % (Manual) Seg Neutrophils # Man Lymphocytes # (Manual) D-Dimer 396.96 H ABG pH POC ABG pO2 ABG Glucose Carboxyhemoglobin Potassium Chloride BUN Creatinine Glucose 163 H POC Glucose Ferritin 335.1 H AST ALT Alkaline Phosphatase Lactate Dehydrogenase 406 H C-Reactive Protein 6.10 H Albumin Arterial Blood Glucose Coronavirus (PCR) SARS-CoV-2 IgG Ab 02/25/20 02/25/20 02/26/20 16:17 22:45 07:55 WBC RBC MCHC Lymph # (Auto) Seg Neutrophils % Seg Neuts % (Manual) Lymphocytes % (Manual) Seg Neutrophils # Man Lymphocytes # (Manual) D-Dimer ABG pH POC ABG pO2 ABG Glucose Carboxyhemoglobin Potassium Chloride BUN Creatinine Glucose POC Glucose 124 H 154 H 124 H Ferritin AST ALT Alkaline Phosphatase Lactate Dehydrogenase C-Reactive Protein Albumin Arterial Blood Glucose Coronavirus (PCR) SARS-CoV-2 IgG Ab 02/26/20 02/26/20 02/26/20 10:45 12:10 16:51 WBC RBC MCHC Lymph # (Auto) Seg Neutrophils % Seg Neuts % (Manual) Lymphocytes % (Manual) Seg Neutrophils # Man Lymphocytes # (Manual) D-Dimer ABG pH POC ABG pO2 ABG Glucose Carboxyhemoglobin Potassium Chloride BUN Creatinine Glucose POC Glucose 121 H 129 H Ferritin AST ALT Alkaline Phosphatase Lactate Dehydrogenase C-Reactive Protein Albumin Arterial Blood Glucose Coronavirus (PCR) Positive A SARS-CoV-2 IgG Ab 02/26/20 02/27/20 02/27/20 22:00 07:58 12:04 WBC RBC MCHC Lymph # (Auto) Seg Neutrophils % Seg Neuts % (Manual) Lymphocytes % (Manual) Seg Neutrophils # Man Lymphocytes # (Manual) D-Dimer ABG pH POC ABG pO2 ABG Glucose Carboxyhemoglobin Potassium Chloride BUN Creatinine Glucose POC Glucose 134 H 115 H 146 H Ferritin AST ALT Alkaline Phosphatase Lactate Dehydrogenase C-Reactive Protein Albumin Arterial Blood Glucose Coronavirus (PCR) SARS-CoV-2 IgG Ab 02/27/20 02/28/20 02/28/20 17:21 16:03 16:03 WBC RBC MCHC Lymph # (Auto) Seg Neutrophils % Seg Neuts % (Manual) Lymphocytes % (Manual) Seg Neutrophils # Man Lymphocytes # (Manual) D-Dimer 995.51 H ABG pH POC ABG pO2 ABG Glucose Carboxyhemoglobin Potassium Chloride BUN Creatinine Glucose POC Glucose 136 H Ferritin 464.3 H AST ALT Alkaline Phosphatase Lactate Dehydrogenase C-Reactive Protein Albumin Arterial Blood Glucose Coronavirus (PCR) SARS-CoV-2 IgG Ab 02/28/20 02/28/20 02/28/20 16:03 16:03 16:03 WBC RBC MCHC Lymph # (Auto) Seg Neutrophils % Seg Neuts % (Manual) Lymphocytes % (Manual) Seg Neutrophils # Man Lymphocytes # (Manual) D-Dimer ABG pH POC ABG pO2 ABG Glucose Carboxyhemoglobin Potassium Chloride BUN 23 H Creatinine 0.4 L Glucose 120 H POC Glucose Ferritin AST 72 H ALT 117 H Alkaline Phosphatase 137 H Lactate Dehydrogenase 779 H C-Reactive Protein 6.10 H Albumin 3.0 L Arterial Blood Glucose Coronavirus (PCR) SARS-CoV-2 IgG Ab Reactive A 02/28/20 02/29/20 02/29/20 22:06 07:38 11:11 WBC RBC MCHC Lymph # (Auto) Seg Neutrophils % Seg Neuts % (Manual) Lymphocytes % (Manual) Seg Neutrophils # Man Lymphocytes # (Manual) D-Dimer ABG pH POC ABG pO2 ABG Glucose Carboxyhemoglobin Potassium Chloride BUN Creatinine Glucose POC Glucose 119 H 121 H 129 H Ferritin AST ALT Alkaline Phosphatase Lactate Dehydrogenase C-Reactive Protein Albumin Arterial Blood Glucose Coronavirus (PCR) SARS-CoV-2 IgG Ab 1202/29/20 03/01/20 15:58 22:02 05:23 WBC RBC MCHC Lymph # (Auto) Seg Neutrophils % Seg Neuts % (Manual) Lymphocytes % (Manual) Seg Neutrophils # Man Lymphocytes # (Manual) D-Dimer 1841.84 H ABG pH POC ABG pO2 ABG Glucose Carboxyhemoglobin Potassium Chloride BUN Creatinine Glucose POC Glucose 118 H 141 H Ferritin AST ALT Alkaline Phosphatase Lactate Dehydrogenase C-Reactive Protein Albumin Arterial Blood Glucose Coronavirus (PCR) SARS-CoV-2 IgG Ab 03/01/20 03/01/20 03/01/20 05:23 05:23 05:23 WBC 17.6 H RBC MCHC Lymph # (Auto) Seg Neutrophils % Seg Neuts % (Manual) 96.0 H Lymphocytes % (Manual) 2.0 L Seg Neutrophils # Man 16.9 H Lymphocytes # (Manual) 0.4 L D-Dimer ABG pH POC ABG pO2 ABG Glucose Carboxyhemoglobin Potassium Chloride BUN 19 H Creatinine 0.3 L Glucose 145 H POC Glucose Ferritin 323.9 H AST ALT 63 H Alkaline Phosphatase 132 H Lactate Dehydrogenase 746 H C-Reactive Protein 6.80 H Albumin 2.9 L Arterial Blood Glucose Coronavirus (PCR) SARS-CoV-2 IgG Ab 03/01/20 03/01/20 03/01/20 06:30 08:53 11:07 WBC RBC MCHC Lymph # (Auto) Seg Neutrophils % Seg Neuts % (Manual) Lymphocytes % (Manual) Seg Neutrophils # Man Lymphocytes # (Manual) D-Dimer ABG pH 7.463 H POC ABG pO2 71.9 L ABG Glucose 147 H Carboxyhemoglobin 0.2 L Potassium Chloride BUN Creatinine Glucose POC Glucose 132 H 126 H Ferritin AST ALT Alkaline Phosphatase Lactate Dehydrogenase C-Reactive Protein Albumin Arterial Blood Glucose 147 H Coronavirus (PCR) SARS-CoV-2 IgG Ab 03/01/20 03/01/20 03/02/20 15:50 21:24 08:08 WBC RBC MCHC Lymph # (Auto) Seg Neutrophils % Seg Neuts % (Manual) Lymphocytes % (Manual) Seg Neutrophils # Man Lymphocytes # (Manual) D-Dimer ABG pH POC ABG pO2 ABG Glucose Carboxyhemoglobin Potassium Chloride BUN Creatinine Glucose POC Glucose 122 H 142 H 152 H Ferritin AST ALT Alkaline Phosphatase Lactate Dehydrogenase C-Reactive Protein Albumin Arterial Blood Glucose Coronavirus (PCR) SARS-CoV-2 IgG Ab 03/02/20 03/02/20 03/02/20 11:41 16:51 21:56 WBC RBC MCHC Lymph # (Auto) Seg Neutrophils % Seg Neuts % (Manual) Lymphocytes % (Manual) Seg Neutrophils # Man Lymphocytes # (Manual) D-Dimer ABG pH POC ABG pO2 ABG Glucose Carboxyhemoglobin Potassium Chloride BUN Creatinine Glucose POC Glucose 136 H 137 H 126 H Ferritin AST ALT Alkaline Phosphatase Lactate Dehydrogenase C-Reactive Protein Albumin Arterial Blood Glucose Coronavirus (PCR) SARS-CoV-2 IgG Ab 03/03/20 08:05 WBC RBC MCHC Lymph # (Auto) Seg Neutrophils % Seg Neuts % (Manual) Lymphocytes % (Manual) Seg Neutrophils # Man Lymphocytes # (Manual) D-Dimer ABG pH POC ABG pO2 ABG Glucose Carboxyhemoglobin Potassium Chloride BUN Creatinine Glucose POC Glucose 147 H Ferritin AST ALT Alkaline Phosphatase Lactate Dehydrogenase C-Reactive Protein Albumin Arterial Blood Glucose Coronavirus (PCR) SARS-CoV-2 IgG Ab
--- NOTE | 2020-03-03 14:04 | Progress Note ---
Assessment and Plan Cultures: Blood culture no growth today SARS CoV2 PCR positive SARS Covid 2 IgG positive Assessment: 50 years old female with history of obesity, admitted on 02/24/2020 secondary to 2-week history of feeling sick with dry cough, fever, generalized malaise, shortness of breath, dyspnea on exertion, nausea, vomiting, diarrhea, loss of smell and taste: #Severe sepsis: Remains hypoxia likely due to bilateral pneumonia. #Severe COVID pneumonia: Chest x-ray with bilateral patchy infiltrates. In flammatory markers elevated, worsening, D-dimer is up. Procalcitonin normal. Venous ultrasound no DVT. CTA shows no pulmonary embolism, bilateral pneumonia positive. #Acute hypoxemic respiratory failure: O2 sats dropped to 93%, ambulation to 88%. Not better remains on BIPAP at night and high flow nasal cannula 100%, 40 L #Elevated D-dimer: CTA without PE, venous ultrasound without DVT #Elevated LFTs: from COVID #Obesity: Associated with worse outcomes. Recommendations: -Obtain transthoracic echo, BNP -pending -SARS-CoV-2 IgG positive, patient is not a candidate for Covid convalescent plasma -Steroids per pulmonary -Continue remdesivir total 5 days-D5 of 5 -Monitor inflammatory markers - ferritin, Ddimer, CRP, LDH -Monitor liver function test on Remdesivir -Continue anticoagulation per System Protocol -Prone positioning as possible -Pulmonary on board Close monitoring risk for deterioration requiring intubation, , consider close monitoring IMCU All laboratory, cultures and imaging were reviewed. Will follow Mar Reyna MD Infectious Diseases Senior Site Manager [facility] M [phone] O [phone] Subjective Date of service: 03/03/20 Principal diagnosis: Severe COVID-19 Interval history: Remains on high flow nasal cannula 100%, 40 L, continues to desaturate no fever. Objective - Exam Narrative Exam: Physical Exam: reviewed ED and hospitalist notes. Deferred to prevent COVID-19 transmission. - - Constitutional Vitals: Vital Signs Temp Pulse Resp BP Pulse Ox 98.0 F 87 16 93/42 92 03/03/20 04:58 03/03/20 04:58 03/03/20 04:58 03/03/20 04:58 03/03/20 04:58 Temperature -Last 24 Hours Temperature 98.0 F Temperature 98.4 F Temperature 98.7 F - Labs CBC & Chem 7: 03/01/20 05:23 03/01/20 05:23 Labs: Abnormal lab results 03/02/20 03/02/20 03/03/20 Range/Units 16:51 21:56 08:05 POC Glucose 137 H 126 H 147 H (70-105) mg/dL 03/03/20 Range/Units 13:10 POC Glucose 114 H (70-105) mg/dL
--- NOTE | 2020-03-03 17:05 | Progress Note ---
Assessment and Plan Assessment and Plan - Patient Problems (1) Acute hypoxemic respiratory failure Current Visit: Yes Status: Acute Plan to address problem: Patient on 40 L high flow oxygen Worsening clinical picture Patient may need intubation Patient to transfer to ICU Dr. Love discussed the case with me (2) Covid pneumonia Current Visit: Yes Status: Acute Plan to address problem: Patient is coronavirus PCR positive on 02/26/2020 Patient is also SARS-CoV-2 IgG positive Patient is not a candidate for Covid convalescent plasma Steroids Continue remdesivir for 5 days-today is day 4 of day 5 Continue anticoagulation Prone positioning as possible High flow oxygen (3) Pneumonia Current Visit: Yes Status: Acute Qualifiers: Laterality: bilateral Plan to address problem: Pneumonia protocol: Chest x-ray, CBC, CMP, supplemental oxygen, nebulizer therapy, pulse oximetry, IV antibiotic therapy, pulmonary toilet, blood culture. (4) severe sepsis Remains hypoxic likely due to bilateral pneumonia Continue IV antibiotics (5) DVT prophylaxis Current Visit: Yes Status: Acute Plan to address problem: High-dose Lovenox Subjective Date of service: 03/03/20 Principal diagnosis: Severe COVID-19 Interval history: 50 YO Female with Obesity Hypoventilation Syndrome presents to ED for evaluation. Patient states that she has "been feeling sick" for the past 2 weeks with persistent symptoms over the same timeframe. Patient was seen and evaluated by her primary care physician and treated with oral antibiotics for outpatient pneumonia. Patient states that she has experienced persistent symptoms in spite of of compliance with medication. Patient reports fever, dry cough, shortness of breath, decreased exercise tolerance, nausea, multiple episodes of vomiting, multiple loose stools, loss of sense of smell, loss of sense of taste, fatigue, malaise, body aches. Patient transported to [facility] via private vehicle for further care and evaluation of the aforementioned symptoms. Patient seen and evaluated in the emergency department. All lab and imaging studies reviewed. Patient found to have a fever to 102.1 F, as well as a pulse oximetry of 88% with exertion on room air which is consistent with acute hypoxemic respiratory failure. Patient underwent chest x-ray which revealed bilateral pneumonia. Patient admitted to medical floor and initiated on pneumonia protocol as well as coronavirus protocol. Coronavirus PCR ordered in the emergency department and is pending at time of admission. Patient acknowledges fever, but denies chest pain, palpitation, skin rash, recent ill contacts, trauma, or known exposure to COVID-19. No medication listed at time of admission. No prior admission for review. 02/29/2020 Patient alert, awake. Having cough. Having mild shortness of breath at rest. Patient is on vapotherm, FIO2 100% and O2 saturation 90%. Patient switched to BIPAP. But patient not using it.Patient afebrile. No leukocytosis. Complaining headache at times.Patients Huynh virus PCR is Positive. Patients chest xray done 02/24/20 reported Patchy bilateral pulmonary opacities are concerning for infection/pneumonia. 03/01/2020 03/01/2020 Patient on high flow oxygen and BiPAP 03/02/2020 Patient still on high flow oxygen and BiPAP 03/03/2020 Patient with worsening inflammatory markers Chest x-ray worsening with extensive consolidations Patient will be transferred to ICU Objective - Constitutional Vitals: Vital Signs - 12hr 03/03/20 13:16 Temperature 98.2 F Pulse Rate 87 Respiratory 24 Rate Blood Pressure 104/42 O2 Sat by Pulse 91 Oximetry General appearance: Present: severe distress, well-nourished - EENT Eyes: PERRL, EOM intact ENT: hearing intact, clear oral mucosa Ears: bilateral: normal - Neck Neck: supple, normal ROM - Respiratory Respiratory effort: normal Respiratory: bilateral: CTA, rhonchi, wheezing - Breasts Breasts: normal - Cardiovascular Rhythm: regular Heart Sounds: Present: S1 & S2. Absent: gallop, rub Extremities: pulses intact, No edema, normal color, Full ROM - Gastrointestinal General gastrointestinal: Present: soft, non-tender, non-distended, normal bowel sounds - Genitourinary Female genitourinary: normal - Integumentary Integumentary: clear, warm, dry - Musculoskeletal Musculoskeletal: 1, strength equal bilaterally - Neurologic Neurologic: moves all extremities - Psychiatric Psychiatric: memory intact, appropriate mood/affect, intact judgment & insight - Labs CBC & Chem 7: 03/01/20 05:23 03/01/20 05:23 Labs: Abnormal lab results 03/02/20 03/03/20 03/03/20 Range/Units 21:56 08:05 13:10 POC Glucose 126 H 147 H 114 H (70-105) mg/dL HEART Score - HEART Score Troponin: Troponin T < 0.010 ng/mL (0.00-0.029) 02/28/20 16:03
[2020-03-03] MEDS ORDERED: dexAMETHasone 4 MG/ML VIAL IV ONE (18:00)
[2020-03-03] MEDS: HYDROcodone/HOMATROPINE 5-1.5MG /5 ML ORAL LIQD UNIT DOSE PO PRN (18:31)
[2020-03-03 19:55] LABS: Hematocrit 38.5 % (30.3-42.9); Hemoglobin 12.7 gm/dl (10.1-14.3); Mean Corpuscular HGB Conc 33 % (30-34); Mean Corpuscular Volume 92 fl (79-97); Platelet Count 322 K/mm3 (140-440)
[2020-03-03 20:09] LABS: Alanine Aminotransferase 35 units/L (7-56); Albumin 3.1 g/dL (3.9-5); Blood Urea Nitrogen 27 mg/dL (7-17); Calcium 9.1 mg/dL (8.4-10.2); Hemolysis Index 5
[2020-03-03 20:10] LABS: BUN/Creatinine Ratio 54
[2020-03-04 00:17] LABS: Anisocytosis RARE; Total Cells Counted 100
[2020-03-04 00:18] LABS: Ovalocytes Rare; Platelet Estimate Consistent w Auto
[2020-03-04] MEDS: FAMOTIDINE 10 MG TAB PO SCH ×3 (00:19→21:20)
[2020-03-04] MEDS: BENZONATATE 100 MG CAP PO SCH ×3 (00:19→21:20)
[2020-03-04] MEDS: ASCORBIC ACID 500 MG TAB PO SCH ×3 (00:20→21:21)
[2020-03-04] MEDS: ENOXAPARIN 80 MG/0.8 ML INJ SUB-Q SCH ×3 (00:20→21:20)
[2020-03-04 06:24] LABS: Hematocrit 37.3 % (30.3-42.9); Hemoglobin 12.6 gm/dl (10.1-14.3); Mean Corpuscular HGB Conc 34 % (30-34); Mean Corpuscular Volume 91 fl (79-97); Platelet Count 332 K/mm3 (140-440); Red Blood Count 4.08 M/mm3 (3.65-5.03); Red Cell Distribution Width 13.8 % (13.2-15.2)
[2020-03-04 06:44] LABS: Alanine Aminotransferase 31 units/L (7-56); Blood Urea Nitrogen 31 mg/dL (7-17); Calcium 9.5 mg/dL (8.4-10.2); Hemolysis Index 26
[2020-03-04 06:52] LABS: BUN/Creatinine Ratio 78
--- NOTE | 2020-03-04 07:56 | Progress Note ---
Assessment and Plan PUI-COVID -clinically and radiographically consistent with COVID infection await SARS-CoV-2 PCR -Obtain SARS-CoV-2 IgG Acute hypoxemic respiratory failure Severe sepsis: Present on admission with low-grade fever, tachycardia, hypoxia, likely due to bilateral pneumonia. Bilateral pneumonia Morbid obesity -With worsening inflammatory markers, on Vapotherm at 40L, 100% with ongoing episodic desaturations. CTA shows severe alveolar infiltrates, with minimal normal lung tissue- get stat ABG, transfer to ICU. Low threshold to intubate. -Stop Solumedrol, use dexamethasone. -SARS-CoV-2 IgG positive, not a candidate fro Convalescent plasma therapy -Conservative fluid management -Awake proning Discussed with primary attending and ICU staff Supplemental oxygen to keep O2 sats>90% Bronchodilators with pulmonary hygiene per RT Accuchecks with glycemic control per SSI (While critically ill target blood glucose of 140-180 mg/dL; avoid hypoglycemia) Monitor liver function test Avoid nephrotoxins, conservative fluid management Maintenance of sleep-wake cycle, avoid delirium ABG now to monitor alveolar infiltrates and P/F ratio CBC, BMP as clinically indicated Accuchecks with glycemic control. Keep blood glucose <180mg/dL, avoid hypoglycemia Monitor hemodynamics closely Continue steroids: on Solumedrol, start Dexamethasone and stop Solumedrol VTE prophylaxis- on therapeutic Lovenox for COVID Continue contact and airborne isolation per facility protocol .... Re-evaluate in am & prn .... Continue other care per attending / other consultants CONDITION: CRITICAL PROGNOSIS: GUARDED CODE STATUS: FULL CODE The high probability of a clinically significant, sudden or life-threatening deterioration of the [respiratory] system(s) required my full and direct attention, intervention and personal management. The aggregate critical care time was [32] minutes without overlap. Time includes spent on; [x] Data Review and interpretation [x] Patient assessment and monitoring of vital signs [x] Documentation [x] Medication orders and management Subjective Date of service: 03/04/20 Principal diagnosis: Severe COVID-19 Interval history: Follow up for : Acute hypoxemic respiratory failure ; COVID infection: Severe sepsis: Present on admission with low-grade fever, tachycardia, hypoxia, likely due to bilateral pneumonia. ;Bilateral pneumonia; Morbid obesity No acute overnight events reported. Worsening oxygenation and inflammatory markers No fevers, no nausea or vomiting. No diarrhea. Objective Vital Signs - 12hr 03/03/20 03/03/20 03/04/20 20:42 22:48 02:00 Temperature 98.5 F Pulse Rate 79 Respiratory 20 Rate Blood Pressure 107/54 O2 Sat by Pulse 94 93 90 Oximetry 03/04/20 06:28 Temperature 98.3 F Pulse Rate 86 Respiratory 22 Rate Blood Pressure 100/54 O2 Sat by Pulse 89 Oximetry Constitutional: alert, appears uncomfortable, other (Having cough) Eyes: non-icteric Neck: supple, no lymphadenopathy Effort: mildly labored Ascultation: Bilateral: rhonchi Cardiovascular: regular rate and rhythm Gastrointestinal: normoactive bowel sounds, soft, non-tender Integumentary: normal Extremities: no cyanosis, no edema Neurologic: non-focal exam, pupils equal and round Psychiatric: mood appropriate CBC and BMP: 03/04/20 06:06 03/04/20 06:06 ABG, PT/INR, D-dimer: ABG ABG pH 7.463 (7.320-7.450) H 03/01/20 08:53 POC ABG pCO2 40.0 mmHg (32.0-48.0) 03/01/20 08:53 POC ABG pO2 71.9 mmHg (83-108) L 03/01/20 08:53 POC ABG HCO3 28.0 03/01/20 08:53 PT/INR, D-dimer D-Dimer 1841.84 ng/mlDDU (0-234) H 03/01/20 05:23 Abnormal lab findings: Abnormal Labs 02/24/20 02/24/20 02/24/20 12:07 12:07 12:07 WBC RBC MCHC 35 H Lymph # (Auto) Seg Neutrophils % 76.6 H Seg Neuts % (Manual) Lymphocytes % (Manual) Seg Neutrophils # Man Lymphocytes # (Manual) Monocytes # (Manual) D-Dimer 236.88 H ABG pH POC ABG pO2 ABG Glucose Carboxyhemoglobin Potassium 3.4 L Chloride BUN Creatinine Glucose POC Glucose Ferritin AST 42 H ALT Alkaline Phosphatase Lactate Dehydrogenase C-Reactive Protein Albumin Arterial Blood Glucose Coronavirus (PCR) SARS-CoV-2 IgG Ab 02/24/20 02/24/20 02/25/20 12:07 12:07 05:16 WBC RBC 3.53 L MCHC Lymph # (Auto) 1.1 L Seg Neutrophils % 75.0 H Seg Neuts % (Manual) Lymphocytes % (Manual) Seg Neutrophils # Man Lymphocytes # (Manual) Monocytes # (Manual) D-Dimer ABG pH POC ABG pO2 ABG Glucose Carboxyhemoglobin Potassium Chloride BUN Creatinine Glucose 101 H POC Glucose Ferritin 200.8 H AST ALT Alkaline Phosphatase Lactate Dehydrogenase 315 H C-Reactive Protein 12.00 H Albumin Arterial Blood Glucose Coronavirus (PCR) SARS-CoV-2 IgG Ab 02/25/20 02/25/20 02/25/20 05:16 08:21 11:52 WBC RBC MCHC Lymph # (Auto) Seg Neutrophils % Seg Neuts % (Manual) Lymphocytes % (Manual) Seg Neutrophils # Man Lymphocytes # (Manual) Monocytes # (Manual) D-Dimer ABG pH POC ABG pO2 ABG Glucose Carboxyhemoglobin Potassium Chloride 109.8 H BUN Creatinine 0.4 L Glucose 143 H POC Glucose 123 H 133 H Ferritin AST ALT Alkaline Phosphatase Lactate Dehydrogenase C-Reactive Protein Albumin Arterial Blood Glucose Coronavirus (PCR) SARS-CoV-2 IgG Ab 02/25/20 02/25/20 02/25/20 14:21 14:21 14:21 WBC RBC MCHC Lymph # (Auto) Seg Neutrophils % Seg Neuts % (Manual) Lymphocytes % (Manual) Seg Neutrophils # Man Lymphocytes # (Manual) Monocytes # (Manual) D-Dimer 396.96 H ABG pH POC ABG pO2 ABG Glucose Carboxyhemoglobin Potassium Chloride BUN Creatinine Glucose 163 H POC Glucose Ferritin 335.1 H AST ALT Alkaline Phosphatase Lactate Dehydrogenase 406 H C-Reactive Protein 6.10 H Albumin Arterial Blood Glucose Coronavirus (PCR) SARS-CoV-2 IgG Ab 02/25/20 02/25/20 02/26/20 16:17 22:45 07:55 WBC RBC MCHC Lymph # (Auto) Seg Neutrophils % Seg Neuts % (Manual) Lymphocytes % (Manual) Seg Neutrophils # Man Lymphocytes # (Manual) Monocytes # (Manual) D-Dimer ABG pH POC ABG pO2 ABG Glucose Carboxyhemoglobin Potassium Chloride BUN Creatinine Glucose POC Glucose 124 H 154 H 124 H Ferritin AST ALT Alkaline Phosphatase Lactate Dehydrogenase C-Reactive Protein Albumin Arterial Blood Glucose Coronavirus (PCR) SARS-CoV-2 IgG Ab 02/26/20 02/26/20 02/26/20 10:45 12:10 16:51 WBC RBC MCHC Lymph # (Auto) Seg Neutrophils % Seg Neuts % (Manual) Lymphocytes % (Manual) Seg Neutrophils # Man Lymphocytes # (Manual) Monocytes # (Manual) D-Dimer ABG pH POC ABG pO2 ABG Glucose Carboxyhemoglobin Potassium Chloride BUN Creatinine Glucose POC Glucose 121 H 129 H Ferritin AST ALT Alkaline Phosphatase Lactate Dehydrogenase C-Reactive Protein Albumin Arterial Blood Glucose Coronavirus (PCR) Positive A SARS-CoV-2 IgG Ab 02/26/20 02/27/20 02/27/20 22:00 07:58 12:04 WBC RBC MCHC Lymph # (Auto) Seg Neutrophils % Seg Neuts % (Manual) Lymphocytes % (Manual) Seg Neutrophils # Man Lymphocytes # (Manual) Monocytes # (Manual) D-Dimer ABG pH POC ABG pO2 ABG Glucose Carboxyhemoglobin Potassium Chloride BUN Creatinine Glucose POC Glucose 134 H 115 H 146 H Ferritin AST ALT Alkaline Phosphatase Lactate Dehydrogenase C-Reactive Protein Albumin Arterial Blood Glucose Coronavirus (PCR) SARS-CoV-2 IgG Ab 02/27/20 02/28/20 02/28/20 17:21 16:03 16:03 WBC RBC MCHC Lymph # (Auto) Seg Neutrophils % Seg Neuts % (Manual) Lymphocytes % (Manual) Seg Neutrophils # Man Lymphocytes # (Manual) Monocytes # (Manual) D-Dimer 995.51 H ABG pH POC ABG pO2 ABG Glucose Carboxyhemoglobin Potassium Chloride BUN Creatinine Glucose POC Glucose 136 H Ferritin 464.3 H AST ALT Alkaline Phosphatase Lactate Dehydrogenase C-Reactive Protein Albumin Arterial Blood Glucose Coronavirus (PCR) SARS-CoV-2 IgG Ab 02/28/20 02/28/20 02/28/20 16:03 16:03 16:03 WBC RBC MCHC Lymph # (Auto) Seg Neutrophils % Seg Neuts % (Manual) Lymphocytes % (Manual) Seg Neutrophils # Man Lymphocytes # (Manual) Monocytes # (Manual) D-Dimer ABG pH POC ABG pO2 ABG Glucose Carboxyhemoglobin Potassium Chloride BUN 23 H Creatinine 0.4 L Glucose 120 H POC Glucose Ferritin AST 72 H ALT 117 H Alkaline Phosphatase 137 H Lactate Dehydrogenase 779 H C-Reactive Protein 6.10 H Albumin 3.0 L Arterial Blood Glucose Coronavirus (PCR) SARS-CoV-2 IgG Ab Reactive A 02/28/20 02/29/20 02/29/20 22:06 07:38 11:11 WBC RBC MCHC Lymph # (Auto) Seg Neutrophils % Seg Neuts % (Manual) Lymphocytes % (Manual) Seg Neutrophils # Man Lymphocytes # (Manual) Monocytes # (Manual) D-Dimer ABG pH POC ABG pO2 ABG Glucose Carboxyhemoglobin Potassium Chloride BUN Creatinine Glucose POC Glucose 119 H 121 H 129 H Ferritin AST ALT Alkaline Phosphatase Lactate Dehydrogenase C-Reactive Protein Albumin Arterial Blood Glucose Coronavirus (PCR) SARS-CoV-2 IgG Ab 02/29/20 02/29/20 03/01/20 15:58 22:02 05:23 WBC RBC MCHC Lymph # (Auto) Seg Neutrophils % Seg Neuts % (Manual) Lymphocytes % (Manual) Seg Neutrophils # Man Lymphocytes # (Manual) Monocytes # (Manual) D-Dimer 1841.84 H ABG pH POC ABG pO2 ABG Glucose Carboxyhemoglobin Potassium Chloride BUN Creatinine Glucose POC Glucose 118 H 141 H Ferritin AST ALT Alkaline Phosphatase Lactate Dehydrogenase C-Reactive Protein Albumin Arterial Blood Glucose Coronavirus (PCR) SARS-CoV-2 IgG Ab 03/01/20 03/01/20 03/01/20 05:23 05:23 05:23 WBC 17.6 H RBC MCHC Lymph # (Auto) Seg Neutrophils % Seg Neuts % (Manual) 96.0 H Lymphocytes % (Manual) 2.0 L Seg Neutrophils # Man 16.9 H Lymphocytes # (Manual) 0.4 L Monocytes # (Manual) D-Dimer ABG pH POC ABG pO2 ABG Glucose Carboxyhemoglobin Potassium Chloride BUN 19 H Creatinine 0.3 L Glucose 145 H POC Glucose Ferritin 323.9 H AST ALT 63 H Alkaline Phosphatase 132 H Lactate Dehydrogenase 746 H C-Reactive Protein 6.80 H Albumin 2.9 L Arterial Blood Glucose Coronavirus (PCR) SARS-CoV-2 IgG Ab 03/01/20 03/01/20 03/01/20 06:30 08:53 11:07 WBC RBC MCHC Lymph # (Auto) Seg Neutrophils % Seg Neuts % (Manual) Lymphocytes % (Manual) Seg Neutrophils # Man Lymphocytes # (Manual) Monocytes # (Manual) D-Dimer ABG pH 7.463 H POC ABG pO2 71.9 L ABG Glucose 147 H Carboxyhemoglobin 0.2 L Potassium Chloride BUN Creatinine Glucose POC Glucose 132 H 126 H Ferritin AST ALT Alkaline Phosphatase Lactate Dehydrogenase C-Reactive Protein Albumin Arterial Blood Glucose 147 H Coronavirus (PCR) SARS-CoV-2 IgG Ab 03/01/20 03/01/20 03/02/20 15:50 21:24 08:08 WBC RBC MCHC Lymph # (Auto) Seg Neutrophils % Seg Neuts % (Manual) Lymphocytes % (Manual) Seg Neutrophils # Man Lymphocytes # (Manual) Monocytes # (Manual) D-Dimer ABG pH POC ABG pO2 ABG Glucose Carboxyhemoglobin Potassium Chloride BUN Creatinine Glucose POC Glucose 122 H 142 H 152 H Ferritin AST ALT Alkaline Phosphatase Lactate Dehydrogenase C-Reactive Protein Albumin Arterial Blood Glucose Coronavirus (PCR) SARS-CoV-2 IgG Ab 03/02/20 03/02/20 03/02/20 11:41 16:51 21:56 WBC RBC MCHC Lymph # (Auto) Seg Neutrophils % Seg Neuts % (Manual) Lymphocytes % (Manual) Seg Neutrophils # Man Lymphocytes # (Manual) Monocytes # (Manual) D-Dimer ABG pH POC ABG pO2 ABG Glucose Carboxyhemoglobin Potassium Chloride BUN Creatinine Glucose POC Glucose 136 H 137 H 126 H Ferritin AST ALT Alkaline Phosphatase Lactate Dehydrogenase C-Reactive Protein Albumin Arterial Blood Glucose Coronavirus (PCR) SARS-CoV-2 IgG Ab 03/03/20 03/03/20 03/03/20 08:05 13:10 19:32 WBC RBC MCHC Lymph # (Auto) Seg Neutrophils % Seg Neuts % (Manual) Lymphocytes % (Manual) Seg Neutrophils # Man Lymphocytes # (Manual) Monocytes # (Manual) D-Dimer ABG pH POC ABG pO2 ABG Glucose Carboxyhemoglobin Potassium Chloride BUN 27 H Creatinine 0.5 L D Glucose 200 H POC Glucose 147 H 114 H Ferritin AST ALT Alkaline Phosphatase Lactate Dehydrogenase C-Reactive Protein Albumin 3.1 L Arterial Blood Glucose Coronavirus (PCR) SARS-CoV-2 IgG Ab 03/03/20 03/03/20 03/03/20 19:32 19:39 22:44 WBC 20.3 H RBC MCHC Lymph # (Auto) Seg Neutrophils % Seg Neuts % (Manual) 90.0 H Lymphocytes % (Manual) 4.0 L Seg Neutrophils # Man 18.3 H Lymphocytes # (Manual) 0.8 L Monocytes # (Manual) 1.2 H D-Dimer ABG pH POC ABG pO2 ABG Glucose Carboxyhemoglobin Potassium Chloride BUN Creatinine Glucose POC Glucose 186 H 159 H Ferritin AST ALT Alkaline Phosphatase Lactate Dehydrogenase C-Reactive Protein Albumin Arterial Blood Glucose Coronavirus (PCR) SARS-CoV-2 IgG Ab 03/04/20 03/04/20 03/04/20 06:06 06:06 07:52 WBC 17.2 H RBC MCHC Lymph # (Auto) Seg Neutrophils % Seg Neuts % (Manual) Lymphocytes % (Manual) Seg Neutrophils # Man Lymphocytes # (Manual) Monocytes # (Manual) D-Dimer ABG pH POC ABG pO2 ABG Glucose Carboxyhemoglobin Potassium Chloride BUN 31 H Creatinine 0.4 L Glucose 144 H POC Glucose 131 H Ferritin AST ALT Alkaline Phosphatase Lactate Dehydrogenase C-Reactive Protein Albumin 3.0 L Arterial Blood Glucose Coronavirus (PCR) SARS-CoV-2 IgG Ab
[2020-03-04 09:55] LABS: Eosinophils # (Auto) 0.1 K/mm3 (0.0-0.4); Eosinophils % (Auto) 0.7 % (0.0-4.3); Monocytes # (Auto) 0.4 K/mm3 (0.0-0.8); Monocytes % (Auto) 2.3 % (0.0-7.3)
[2020-03-04] MEDS: CHOLECALCIFEROL (VIT D3) 5,000 UNIT TAB PO SCH (11:18)
[2020-03-04 11:30] LABS: Total Cells Counted 100
[2020-03-04 11:31] LABS: Platelet Estimate Consistent w Auto; RBC Morphology Normal
[2020-03-04 11:57] LABS: ABG Base Excess -0.2 mmol/L (-2.0-3.0); ABG HCO3 22.2 mmol/L (20.0-26.0); ABG Methemoglobin 0.5 % (0.0-1.5); ABG Oxygen Saturation 90.4 % (95.0-99.0); ABG PCO2 29.9 mm Hg; ABG PH 7.489 pH Units (7.350-7.450); ABG PO2 54.6 mm Hg (80.0-90.0)
[2020-03-04] MEDS: HYDROcodone/HOMATROPINE 5-1.5MG /5 ML ORAL LIQD UNIT DOSE PO PRN (12:48)
[2020-03-04] MEDS: dexAMETHasone 4 MG/ML VIAL IV SCH (15:23)
[2020-03-05] MEDS: HYDROcodone/HOMATROPINE 5-1.5MG /5 ML ORAL LIQD UNIT DOSE PO PRN (05:14)
--- NOTE | 2020-03-05 10:47 | Progress Note ---
Assessment and Plan Severe-critical COVID -clinically and radiographically consistent with COVID infection await SARS-CoV-2 PCR Acute hypoxemic respiratory failure Severe sepsis: Present on admission with low-grade fever, tachycardia, hypoxia, likely due to bilateral pneumonia. Bilateral pneumonia Morbid obesity -ABG ordered, will address -Conservative fluid management, IV Lasix 40mg ordered. Will monitor response -Awake proning, lateral decubitus positioning as tolerated Discussed with primary attending and ICU staff Supplemental oxygen to keep O2 sats>90% Bronchodilators with pulmonary hygiene per RT Accuchecks with glycemic control per SSI (While critically ill target blood glucose of 140-180 mg/dL; avoid hypoglycemia) Continue to monitor liver function test Continue to avoid nephrotoxins, conservative fluid management Continue to maintain sleep-wake cycle, avoid delirium CBC, BMP as clinically indicated Accuchecks with glycemic control. Keep blood glucose <180mg/dL, avoid hypoglycemia Monitor hemodynamics closely Continue steroids: on Dexamethasone VTE prophylaxis- on therapeutic Lovenox for COVID Continue contact and airborne isolation per facility protocol .... Re-evaluate in am & prn .... Continue other care per attending / other consultants CONDITION: CRITICAL PROGNOSIS: GUARDED CODE STATUS: FULL CODE The high probability of a clinically significant, sudden or life-threatening deterioration of the [respiratory] system(s) required my full and direct attention, intervention and personal management. The aggregate critical care time was [32] minutes without overlap. Time includes spent on; [x] Data Review and interpretation [x] Patient assessment and monitoring of vital signs [x] Documentation [x] Medication orders and management Subjective Date of service: 03/05/20 Principal diagnosis: Severe COVID-19 Interval history: Follow up for : Acute hypoxemic respiratory failure ; COVID infection: Severe sepsis: Present on admission with low-grade fever, tachycardia, hypoxia, likely due to bilateral pneumonia. ;Bilateral pneumonia; Morbid obesity No acute overnight events reported. Remains on high flow oxygen 40L and 100% No fevers, no nausea or vomiting. No diarrhea. Objective Vital Signs - 12hr 03/04/20 03/04/20 03/04/20 22:51 23:00 23:11 Temperature Pulse Rate 99 H 89 81 Pulse Rate [ From Monitor] Respiratory 22 31 H 29 H Rate Blood Pressure 120/53 122/53 122/53 O2 Sat by Pulse 93 94 96 Oximetry 12/03/04/20 03/04/20 23:21 23:30 23:39 Temperature 98.9 F Pulse Rate 82 83 Pulse Rate [ From Monitor] Respiratory 36 H 32 H Rate Blood Pressure 122/53 122/53 O2 Sat by Pulse 97 93 Oximetry 03/04/20 03/04/20 03/05/20 23:41 23:51 00:00 Temperature Pulse Rate 89 84 81 Pulse Rate [ 76 From Monitor] Respiratory 21 29 H 30 H Rate Blood Pressure 122/53 103/59 O2 Sat by Pulse 96 94 94 Oximetry 03/05/20 03/05/20 03/05/20 00:11 00:21 00:31 Temperature Pulse Rate 85 76 83 Pulse Rate [ From Monitor] Respiratory 33 H 27 H 24 Rate Blood Pressure 103/59 103/59 103/59 O2 Sat by Pulse 88 97 97 Oximetry 03/05/20 03/05/20 03/05/20 00:41 00:51 01:01 Temperature Pulse Rate 87 89 83 Pulse Rate [ From Monitor] Respiratory 31 H 27 H 26 H Rate Blood Pressure 103/59 103/59 107/53 O2 Sat by Pulse 96 96 94 Oximetry 03/05/20 03/05/20 03/05/20 01:11 01:21 01:31 Temperature Pulse Rate 82 88 82 Pulse Rate [ From Monitor] Respiratory 32 H 17 32 H Rate Blood Pressure 107/53 107/53 107/53 O2 Sat by Pulse 98 96 93 Oximetry 03/05/20 03/05/20 03/05/20 01:41 01:51 02:00 Temperature Pulse Rate 77 77 80 Pulse Rate [ From Monitor] Respiratory 30 H 30 H 26 H Rate Blood Pressure 107/53 107/53 107/54 O2 Sat by Pulse 96 95 94 Oximetry 03/05/20 03/05/20 03/05/20 02:11 02:21 02:31 Temperature Pulse Rate 81 73 76 Pulse Rate [ From Monitor] Respiratory 31 H 30 H 29 H Rate Blood Pressure 107/54 107/54 107/54 O2 Sat by Pulse 91 93 95 Oximetry 03/05/20 03/05/20 03/05/20 02:41 02:51 03:00 Temperature Pulse Rate 79 77 74 Pulse Rate [ From Monitor] Respiratory 33 H 34 H 30 H Rate Blood Pressure 107/54 107/54 97/45 O2 Sat by Pulse 86 89 93 Oximetry 03/05/20 03/05/20 03/05/20 03:11 03:21 03:31 Temperature Pulse Rate 77 77 76 Pulse Rate [ From Monitor] Respiratory 34 H 33 H 33 H Rate Blood Pressure 97/45 97/45 97/45 O2 Sat by Pulse 92 91 93 Oximetry 03/05/20 03/05/20 03/05/20 03:32 03:41 03:51 Temperature 98.4 F Pulse Rate 78 75 Pulse Rate [ From Monitor] Respiratory 32 H 26 H Rate Blood Pressure 97/45 97/45 O2 Sat by Pulse Oximetry 03/05/20 03/05/20 03/05/20 04:00 04:11 04:21 Temperature Pulse Rate 77 76 76 Pulse Rate [ 77 From Monitor] Respiratory 23 29 H 30 H Rate Blood Pressure 105/62 105/62 105/62 O2 Sat by Pulse 94 Oximetry 03/05/20 03/05/20 03/05/20 04:31 04:41 04:51 Temperature Pulse Rate 74 79 75 Pulse Rate [ From Monitor] Respiratory 29 H 33 H 29 H Rate Blood Pressure 105/62 105/62 105/62 O2 Sat by Pulse Oximetry 03/05/20 03/05/20 03/05/20 05:01 05:11 05:21 Temperature Pulse Rate 72 84 77 Pulse Rate [ From Monitor] Respiratory 29 H 31 H 31 H Rate Blood Pressure 87/39 87/39 109/62 O2 Sat by Pulse 90 92 Oximetry 03/05/20 03/05/20 03/05/20 05:31 05:41 05:51 Temperature Pulse Rate 74 75 75 Pulse Rate [ From Monitor] Respiratory 28 H 30 H 29 H Rate Blood Pressure 109/62 109/62 109/62 O2 Sat by Pulse 93 94 92 Oximetry 03/05/20 03/05/20 03/05/20 06:00 06:11 06:21 Temperature Pulse Rate 72 81 72 Pulse Rate [ From Monitor] Respiratory 27 H 30 H 27 H Rate Blood Pressure 114/54 114/54 114/54 O2 Sat by Pulse 90 95 92 Oximetry 03/05/20 03/05/20 03/05/20 06:31 06:41 06:51 Temperature Pulse Rate 76 75 79 Pulse Rate [ From Monitor] Respiratory 25 H 29 H 27 H Rate Blood Pressure 114/54 114/54 114/54 O2 Sat by Pulse 96 95 92 Oximetry 03/05/20 03/05/20 07:00 08:56 Temperature Pulse Rate 81 Pulse Rate [ From Monitor] Respiratory 32 H Rate Blood Pressure 111/54 O2 Sat by Pulse 93 98 Oximetry Constitutional: alert, appears uncomfortable, other (Having cough) Eyes: non-icteric Neck: supple, no lymphadenopathy Effort: mildly labored Ascultation: Bilateral: rhonchi Cardiovascular: regular rate and rhythm Gastrointestinal: normoactive bowel sounds, soft, non-tender Integumentary: normal Extremities: no cyanosis, no edema Neurologic: non-focal exam, pupils equal and round Psychiatric: mood appropriate CBC and BMP: 03/13/20 07:23 03/13/20 07:23 ABG, PT/INR, D-dimer: ABG ABG pH 7.489 pH Units (7.350-7.450) H 03/04/20 11:40 POC ABG pCO2 40.0 mmHg (32.0-48.0) 03/01/20 08:53 ABG pCO2 29.9 mm Hg 03/04/20 11:40 POC ABG pO2 71.9 mmHg (83-108) L 03/01/20 08:53 ABG pO2 54.6 mm Hg (80.0-90.0) L 03/04/20 11:40 POC ABG HCO3 28.0 03/01/20 08:53 ABG O2 Saturation 90.4 % (95.0-99.0) L 03/04/20 11:40 PT/INR, D-dimer D-Dimer 1841.84 ng/mlDDU (0-234) H 03/01/20 05:23 Abnormal lab findings: Abnormal Labs 02/24/20 02/24/20 02/24/20 12:07 12:07 12:07 WBC RBC MCHC 35 H Lymph # (Auto) Seg Neutrophils % 76.6 H Seg Neuts % (Manual) Lymphocytes % (Manual) Seg Neutrophils # Seg Neutrophils # Man Lymphocytes # (Manual) Monocytes # (Manual) D-Dimer 236.88 H ABG pH POC ABG pO2 ABG pO2 ABG O2 Saturation ABG Glucose Oxyhemoglobin Carboxyhemoglobin Potassium 3.4 L Chloride BUN Creatinine Glucose POC Glucose Ferritin AST 42 H ALT Alkaline Phosphatase Lactate Dehydrogenase C-Reactive Protein Albumin Arterial Blood Glucose Coronavirus (PCR) SARS-CoV-2 IgG Ab 02/24/20 02/24/20 02/25/20 12:07 12:07 05:16 WBC RBC 3.53 L MCHC Lymph # (Auto) 1.1 L Seg Neutrophils % 75.0 H Seg Neuts % (Manual) Lymphocytes % (Manual) Seg Neutrophils # Seg Neutrophils # Man Lymphocytes # (Manual) Monocytes # (Manual) D-Dimer ABG pH POC ABG pO2 ABG pO2 ABG O2 Saturation ABG Glucose Oxyhemoglobin Carboxyhemoglobin Potassium Chloride BUN Creatinine Glucose 101 H POC Glucose Ferritin 200.8 H AST ALT Alkaline Phosphatase Lactate Dehydrogenase 315 H C-Reactive Protein 12.00 H Albumin Arterial Blood Glucose Coronavirus (PCR) SARS-CoV-2 IgG Ab 02/25/20 02/25/20 02/25/20 05:16 08:21 11:52 WBC RBC MCHC Lymph # (Auto) Seg Neutrophils % Seg Neuts % (Manual) Lymphocytes % (Manual) Seg Neutrophils # Seg Neutrophils # Man Lymphocytes # (Manual) Monocytes # (Manual) D-Dimer ABG pH POC ABG pO2 ABG pO2 ABG O2 Saturation ABG Glucose Oxyhemoglobin Carboxyhemoglobin Potassium Chloride 109.8 H BUN Creatinine 0.4 L Glucose 143 H POC Glucose 123 H 133 H Ferritin AST ALT Alkaline Phosphatase Lactate Dehydrogenase C-Reactive Protein Albumin Arterial Blood Glucose Coronavirus (PCR) SARS-CoV-2 IgG Ab 02/25/20 02/25/20 02/25/20 14:21 14:21 14:21 WBC RBC MCHC Lymph # (Auto) Seg Neutrophils % Seg Neuts % (Manual) Lymphocytes % (Manual) Seg Neutrophils # Seg Neutrophils # Man Lymphocytes # (Manual) Monocytes # (Manual) D-Dimer 396.96 H ABG pH POC ABG pO2 ABG pO2 ABG O2 Saturation ABG Glucose Oxyhemoglobin Carboxyhemoglobin Potassium Chloride BUN Creatinine Glucose 163 H POC Glucose Ferritin 335.1 H AST ALT Alkaline Phosphatase Lactate Dehydrogenase 406 H C-Reactive Protein 6.10 H Albumin Arterial Blood Glucose Coronavirus (PCR) SARS-CoV-2 IgG Ab 02/25/20 02/25/20 02/26/20 16:17 22:45 07:55 WBC RBC MCHC Lymph # (Auto) Seg Neutrophils % Seg Neuts % (Manual) Lymphocytes % (Manual) Seg Neutrophils # Seg Neutrophils # Man Lymphocytes # (Manual) Monocytes # (Manual) D-Dimer ABG pH POC ABG pO2 ABG pO2 ABG O2 Saturation ABG Glucose Oxyhemoglobin Carboxyhemoglobin Potassium Chloride BUN Creatinine Glucose POC Glucose 124 H 154 H 124 H Ferritin AST ALT Alkaline Phosphatase Lactate Dehydrogenase C-Reactive Protein Albumin Arterial Blood Glucose Coronavirus (PCR) SARS-CoV-2 IgG Ab 02/26/20 02/26/20 02/26/20 10:45 12:10 16:51 WBC RBC MCHC Lymph # (Auto) Seg Neutrophils % Seg Neuts % (Manual) Lymphocytes % (Manual) Seg Neutrophils # Seg Neutrophils # Man Lymphocytes # (Manual) Monocytes # (Manual) D-Dimer ABG pH POC ABG pO2 ABG pO2 ABG O2 Saturation ABG Glucose Oxyhemoglobin Carboxyhemoglobin Potassium Chloride BUN Creatinine Glucose POC Glucose 121 H 129 H Ferritin AST ALT Alkaline Phosphatase Lactate Dehydrogenase C-Reactive Protein Albumin Arterial Blood Glucose Coronavirus (PCR) Positive A SARS-CoV-2 IgG Ab 02/26/20 02/27/20 02/27/20 22:00 07:58 12:04 WBC RBC MCHC Lymph # (Auto) Seg Neutrophils % Seg Neuts % (Manual) Lymphocytes % (Manual) Seg Neutrophils # Seg Neutrophils # Man Lymphocytes # (Manual) Monocytes # (Manual) D-Dimer ABG pH POC ABG pO2 ABG pO2 ABG O2 Saturation ABG Glucose Oxyhemoglobin Carboxyhemoglobin Potassium Chloride BUN Creatinine Glucose POC Glucose 134 H 115 H 146 H Ferritin AST ALT Alkaline Phosphatase Lactate Dehydrogenase C-Reactive Protein Albumin Arterial Blood Glucose Coronavirus (PCR) SARS-CoV-2 IgG Ab 02/27/20 02/28/20 02/28/20 17:21 16:03 16:03 WBC RBC MCHC Lymph # (Auto) Seg Neutrophils % Seg Neuts % (Manual) Lymphocytes % (Manual) Seg Neutrophils # Seg Neutrophils # Man Lymphocytes # (Manual) Monocytes # (Manual) D-Dimer 995.51 H ABG pH POC ABG pO2 ABG pO2 ABG O2 Saturation ABG Glucose Oxyhemoglobin Carboxyhemoglobin Potassium Chloride BUN Creatinine Glucose POC Glucose 136 H Ferritin 464.3 H AST ALT Alkaline Phosphatase Lactate Dehydrogenase C-Reactive Protein Albumin Arterial Blood Glucose Coronavirus (PCR) SARS-CoV-2 IgG Ab 02/28/20 02/28/20 02/28/20 16:03 16:03 16:03 WBC RBC MCHC Lymph # (Auto) Seg Neutrophils % Seg Neuts % (Manual) Lymphocytes % (Manual) Seg Neutrophils # Seg Neutrophils # Man Lymphocytes # (Manual) Monocytes # (Manual) D-Dimer ABG pH POC ABG pO2 ABG pO2 ABG O2 Saturation ABG Glucose Oxyhemoglobin Carboxyhemoglobin Potassium Chloride BUN 23 H Creatinine 0.4 L Glucose 120 H POC Glucose Ferritin AST 72 H ALT 117 H Alkaline Phosphatase 137 H Lactate Dehydrogenase 779 H C-Reactive Protein 6.10 H Albumin 3.0 L Arterial Blood Glucose Coronavirus (PCR) SARS-CoV-2 IgG Ab Reactive A 02/28/20 02/29/20 02/29/20 22:06 07:38 11:11 WBC RBC MCHC Lymph # (Auto) Seg Neutrophils % Seg Neuts % (Manual) Lymphocytes % (Manual) Seg Neutrophils # Seg Neutrophils # Man Lymphocytes # (Manual) Monocytes # (Manual) D-Dimer ABG pH POC ABG pO2 ABG pO2 ABG O2 Saturation ABG Glucose Oxyhemoglobin Carboxyhemoglobin Potassium Chloride BUN Creatinine Glucose POC Glucose 119 H 121 H 129 H Ferritin AST ALT Alkaline Phosphatase Lactate Dehydrogenase C-Reactive Protein Albumin Arterial Blood Glucose Coronavirus (PCR) SARS-CoV-2 IgG Ab 02/29/20 02/29/20 03/01/20 15:58 22:02 05:23 WBC RBC MCHC Lymph # (Auto) Seg Neutrophils % Seg Neuts % (Manual) Lymphocytes % (Manual) Seg Neutrophils # Seg Neutrophils # Man Lymphocytes # (Manual) Monocytes # (Manual) D-Dimer 1841.84 H ABG pH POC ABG pO2 ABG pO2 ABG O2 Saturation ABG Glucose Oxyhemoglobin Carboxyhemoglobin Potassium Chloride BUN Creatinine Glucose POC Glucose 118 H 141 H Ferritin AST ALT Alkaline Phosphatase Lactate Dehydrogenase C-Reactive Protein Albumin Arterial Blood Glucose Coronavirus (PCR) SARS-CoV-2 IgG Ab 03/01/20 03/01/20 03/01/20 05:23 05:23 05:23 WBC 17.6 H RBC MCHC Lymph # (Auto) Seg Neutrophils % Seg Neuts % (Manual) 96.0 H Lymphocytes % (Manual) 2.0 L Seg Neutrophils # Seg Neutrophils # Man 16.9 H Lymphocytes # (Manual) 0.4 L Monocytes # (Manual) D-Dimer ABG pH POC ABG pO2 ABG pO2 ABG O2 Saturation ABG Glucose Oxyhemoglobin Carboxyhemoglobin Potassium Chloride BUN 19 H Creatinine 0.3 L Glucose 145 H POC Glucose Ferritin 323.9 H AST ALT 63 H Alkaline Phosphatase 132 H Lactate Dehydrogenase 746 H C-Reactive Protein 6.80 H Albumin 2.9 L Arterial Blood Glucose Coronavirus (PCR) SARS-CoV-2 IgG Ab 03/01/20 03/01/20 03/01/20 06:30 08:53 11:07 WBC RBC MCHC Lymph # (Auto) Seg Neutrophils % Seg Neuts % (Manual) Lymphocytes % (Manual) Seg Neutrophils # Seg Neutrophils # Man Lymphocytes # (Manual) Monocytes # (Manual) D-Dimer ABG pH 7.463 H POC ABG pO2 71.9 L ABG pO2 ABG O2 Saturation ABG Glucose 147 H Oxyhemoglobin Carboxyhemoglobin 0.2 L Potassium Chloride BUN Creatinine Glucose POC Glucose 132 H 126 H Ferritin AST ALT Alkaline Phosphatase Lactate Dehydrogenase C-Reactive Protein Albumin Arterial Blood Glucose 147 H Coronavirus (PCR) SARS-CoV-2 IgG Ab 03/01/20 03/01/20 03/02/20 15:50 21:24 08:08 WBC RBC MCHC Lymph # (Auto) Seg Neutrophils % Seg Neuts % (Manual) Lymphocytes % (Manual) Seg Neutrophils # Seg Neutrophils # Man Lymphocytes # (Manual) Monocytes # (Manual) D-Dimer ABG pH POC ABG pO2 ABG pO2 ABG O2 Saturation ABG Glucose Oxyhemoglobin Carboxyhemoglobin Potassium Chloride BUN Creatinine Glucose POC Glucose 122 H 142 H 152 H Ferritin AST ALT Alkaline Phosphatase Lactate Dehydrogenase C-Reactive Protein Albumin Arterial Blood Glucose Coronavirus (PCR) SARS-CoV-2 IgG Ab 03/02/20 03/02/20 03/02/20 11:41 16:51 21:56 WBC RBC MCHC Lymph # (Auto) Seg Neutrophils % Seg Neuts % (Manual) Lymphocytes % (Manual) Seg Neutrophils # Seg Neutrophils # Man Lymphocytes # (Manual) Monocytes # (Manual) D-Dimer ABG pH POC ABG pO2 ABG pO2 ABG O2 Saturation ABG Glucose Oxyhemoglobin Carboxyhemoglobin Potassium Chloride BUN Creatinine Glucose POC Glucose 136 H 137 H 126 H Ferritin AST ALT Alkaline Phosphatase Lactate Dehydrogenase C-Reactive Protein Albumin Arterial Blood Glucose Coronavirus (PCR) SARS-CoV-2 IgG Ab 03/03/20 03/03/20 03/03/20 08:05 13:10 19:32 WBC RBC MCHC Lymph # (Auto) Seg Neutrophils % Seg Neuts % (Manual) Lymphocytes % (Manual) Seg Neutrophils # Seg Neutrophils # Man Lymphocytes # (Manual) Monocytes # (Manual) D-Dimer ABG pH POC ABG pO2 ABG pO2 ABG O2 Saturation ABG Glucose Oxyhemoglobin Carboxyhemoglobin Potassium Chloride BUN 27 H Creatinine 0.5 L D Glucose 200 H POC Glucose 147 H 114 H Ferritin AST ALT Alkaline Phosphatase Lactate Dehydrogenase C-Reactive Protein Albumin 3.1 L Arterial Blood Glucose Coronavirus (PCR) SARS-CoV-2 IgG Ab 03/03/20 03/03/20 03/03/20 19:32 19:39 22:44 WBC 20.3 H RBC MCHC Lymph # (Auto) Seg Neutrophils % Seg Neuts % (Manual) 90.0 H Lymphocytes % (Manual) 4.0 L Seg Neutrophils # Seg Neutrophils # Man 18.3 H Lymphocytes # (Manual) 0.8 L Monocytes # (Manual) 1.2 H D-Dimer ABG pH POC ABG pO2 ABG pO2 ABG O2 Saturation ABG Glucose Oxyhemoglobin Carboxyhemoglobin Potassium Chloride BUN Creatinine Glucose POC Glucose 186 H 159 H Ferritin AST ALT Alkaline Phosphatase Lactate Dehydrogenase C-Reactive Protein Albumin Arterial Blood Glucose Coronavirus (PCR) SARS-CoV-2 IgG Ab 03/04/20 03/04/20 03/04/20 06:06 06:06 07:52 WBC 17.2 H RBC MCHC Lymph # (Auto) Seg Neutrophils % Seg Neuts % (Manual) 88.0 H Lymphocytes % (Manual) 5.0 L Seg Neutrophils # 15.3 H Seg Neutrophils # Man 15.1 H Lymphocytes # (Manual) 0.9 L Monocytes # (Manual) D-Dimer ABG pH POC ABG pO2 ABG pO2 ABG O2 Saturation ABG Glucose Oxyhemoglobin Carboxyhemoglobin Potassium Chloride BUN 31 H Creatinine 0.4 L Glucose 144 H POC Glucose 131 H Ferritin AST ALT Alkaline Phosphatase Lactate Dehydrogenase C-Reactive Protein Albumin 3.0 L Arterial Blood Glucose Coronavirus (PCR) SARS-CoV-2 IgG Ab 03/04/20 03/04/20 03/04/20 11:30 11:40 16:21 WBC RBC MCHC Lymph # (Auto) Seg Neutrophils % Seg Neuts % (Manual) Lymphocytes % (Manual) Seg Neutrophils # Seg Neutrophils # Man Lymphocytes # (Manual) Monocytes # (Manual) D-Dimer ABG pH 7.489 H POC ABG pO2 ABG pO2 54.6 L ABG O2 Saturation 90.4 L ABG Glucose Oxyhemoglobin 89.1 L Carboxyhemoglobin Potassium Chloride BUN Creatinine Glucose POC Glucose 121 H 155 H Ferritin AST ALT Alkaline Phosphatase Lactate Dehydrogenase C-Reactive Protein Albumin Arterial Blood Glucose Coronavirus (PCR) SARS-CoV-2 IgG Ab Allied health notes reviewed: RT
[2020-03-05] MEDS: ASCORBIC ACID 500 MG TAB PO SCH ×2 (11:10→21:27)
[2020-03-05] MEDS: ENOXAPARIN 80 MG/0.8 ML INJ SUB-Q SCH ×2 (11:11→21:26)
[2020-03-05] MEDS: FAMOTIDINE 10 MG TAB PO SCH ×2 (11:11→21:27)
[2020-03-05] MEDS: BENZONATATE 100 MG CAP PO SCH ×2 (11:11→21:27)
[2020-03-05] MEDS: dexAMETHasone 4 MG/ML VIAL IV SCH (11:12)
[2020-03-05] MEDS: FUROSEMIDE 20 MG/2 ML INJ IV SCH (11:18)
--- NOTE | 2020-03-05 13:09 | Progress Note ---
Assessment and Plan Cultures: Blood culture no growth SARS CoV2 PCR positive SARS Covid 2 IgG positive Assessment: 50 year old female with history of obesity, admitted on 02/24/2020 secondary to 2-week history of feeling sick with dry cough, fever, generalized malaise, shortness of breath, dyspnea on exertion, nausea, vomiting, diarrhea, loss of smell and taste: #Severe sepsis: due to bilateral pneumonia. #Severe COVID pneumonia: Chest x-ray with bilateral patchy infiltrates. Inflammatory markers elevated on admission. Venous ultrasound no DVT. CTA showed no pulmonary embolism, bilateral pneumonia. #Acute hypoxemic respiratory failure: on HFNC. #Elevated D-dimer: CTA without PE, venous ultrasound without DVT #Elevated LFTs: from COVID #Obesity: Associated with worse outcomes. Recommendations: Complete at least 10 days of steroids, per ICU Completed remdesivir Monitor inflammatory markers - ferritin, Ddimer, CRP, LDH every 2-3 days Moisés Maravilla MD, FACP [facility] ([facility] O: [phone] F: [phone] Subjective Date of service: 03/05/20 Principal diagnosis: Severe COVID-19 Interval history: No fever. Remains on HFNC. Objective - Exam Narrative Exam: Physical Exam (reviewed in chart to minimize risk of transmission) Constitutional: deferred Head, Ears, Nose: deferred Eyes: deferred Neck: deferred Oral: deferred Cardiovascular: deferred Respiratory: deferred GI: deferred Musculoskeletal: deferred Skin: deferred Hem/Lymphatic: deferred Psych: deferred Neurological: deferred - Constitutional Vitals: Vital Signs Temp Pulse Resp BP Pulse Ox 98.3 F 113 H 22 114/63 97 03/05/20 12:00 03/05/20 13:01 03/05/20 13:01 03/05/20 13:01 03/05/20 13:01 Temperature -Last 24 Hours Temperature 98.3 F Temperature 98.6 F Temperature 98.4 F Temperature 98.9 F Temperature 97.6 F Temperature 98.9 F Temperature 98.6 F - Labs CBC & Chem 7: 03/04/20 06:06 03/04/20 06:06 Labs: Abnormal lab results 03/04/20 03/05/20 Range/Units 16:21 12:01 POC Glucose 155 H 116 H (70-105) mg/dL
[2020-03-05] MEDS: CHOLECALCIFEROL (VIT D3) 5,000 UNIT TAB PO SCH (14:32)
[2020-03-05] MEDS: POTASSIUM CHLORIDE ER 8 MEQ TAB PO SCH (14:32)
[2020-03-05 17:46] LABS: C-Reactive Protein 3.5 mg/dL (0.00-1.30)
[2020-03-05] MEDS: ACETAMINOPHEN 325 MG TAB PO PRN (21:32)
--- NOTE | 2020-03-06 00:16 | Progress Note ---
Assessment and Plan Critical care statement The high probability OF a clinically significant sudden or life-threatening deterioration of the cardiorespiratory system and endocrine system required my full and direct attention, intervention and postoperative management. The aggregate critical care time was 40 minutes. The time is in addition to time spent performing reported procedures but includes the followin: Data review and interpretation 2: Patient assessment and monitoring of vital signs 3: Documentation 4:: Medication orders and management Assessment and Plan - Patient Problems (1) Acute hypoxemic respiratory failure Current Visit: Yes Status: Acute Plan to address problem: Patient on 40 L high flow oxygen Worsening clinical picture Patient may need intubation Patient to transfer to ICU Dr. Love discussed the case with me Patient transferred to ICU Possible intubation (2) Covid pneumonia Current Visit: Yes Status: Acute Plan to address problem: Patient is coronavirus PCR positive on 02/26/2020 Patient is also SARS-CoV-2 IgG positive Patient is not a candidate for Covid convalescent plasma Steroids Continue remdesivir for 5 days-today is day 4 of day 5 Continue anticoagulation Prone positioning as possible High flow oxygen (3) Pneumonia Current Visit: Yes Status: Acute Qualifiers: Laterality: bilateral Plan to address problem: Pneumonia protocol: Chest x-ray, CBC, CMP, supplemental oxygen, nebulizer therapy, pulse oximetry, IV antibiotic therapy, pulmonary toilet, blood culture. (4) severe sepsis Remains hypoxic likely due to bilateral pneumonia Continue IV antibiotics (5) DVT prophylaxis Current Visit: Yes Status: Acute Plan to address problem: High-dose Lovenox Subjective Date of service: 03/04/20 Principal diagnosis: Severe COVID-19 Interval history: 50 YO Female with Obesity Hypoventilation Syndrome presents to ED for evaluation. Patient states that she has "been feeling sick" for the past 2 weeks with persistent symptoms over the same timeframe. Patient was seen and evaluated by her primary care physician and treated with oral antibiotics for outpatient pneumonia. Patient states that she has experienced persistent sympto ms in spite of of compliance with medication. Patient reports fever, dry cough, shortness of breath, decreased exercise tolerance, nausea, multiple episodes of vomiting, multiple loose stools, loss of sense of smell, loss of sense of taste, fatigue, malaise, body aches. Patient transported to [facility] via private vehicle for further care and evaluation of the aforementioned symptoms. Patient seen an d evaluated in the emergency department. All lab and imaging studies reviewed. Patient found to have a fever to 102.1 F, as well as a pulse oximetry of 88% with exertion on room air which is consistent with acute hypoxemic respiratory failure. Patient underwent chest x-ray which revealed bilateral pneumonia. Patient admitted to medical floor and initiated on pneumonia protocol as well as coronavirus protocol. Coronavirus PCR ordered in the emergency department and is pending at time of admission. Patient acknowledges fever, but denies chest pain, palpitation, skin rash, recent ill contacts, trauma, or known exposure to COVID-19. No medication listed at time of admission. No prior admission for review. 02/29/2020 Patient alert, awake. Having cough. Having mild shortness of breath at rest. Patient is on vapotherm, FIO2 100% and O2 saturation 90%. Patient switched to BIPAP. But patient not using it.Patient afebrile. No leukocytosis. Complaining headache at times.Patients Huynh virus PCR is Positive. Patients chest xray done 02/24/20 reported Patchy bilateral pulmonary opacities are concerning for infection/pneumonia. 03/01/2020 03/01/2020 Patient on high flow oxygen and BiPAP 03/02/2020 Patient still on high flow oxygen and BiPAP 03/03/2020 Patient with worsening inflammatory markers Chest x-ray worsening with extensive consolidations Patient will be transferred to ICU 03/04/2020 Patient on high flow oxygen-40 L Worsening pulmonary alveolar infiltrates Possible intubation 03/05/2020 Patient on high flow nasal cannula oxygen Trying to avoid intubation Objective - Constitutional Vitals: Vital Signs - 12hr 03/05/20 03/05/20 03/05/20 12:21 12:31 12:41 Temperature Pulse Rate 109 H 122 H 114 H Pulse Rate [ From Monitor] Respiratory 35 H 28 H 31 H Rate Respiratory Rate [Chest] Blood Pressure 104/64 104/64 104/64 O2 Sat by Pulse 97 90 95 Oximetry 03/05/20 03/05/20 03/05/20 12:51 12:52 13:01 Temperature Pulse Rate 113 H 113 H Pulse Rate [ From Monitor] Respiratory 31 H 22 Rate Respiratory Rate [Chest] Blood Pressure 114/63 114/63 O2 Sat by Pulse 97 97 97 Oximetry 03/05/20 03/05/20 03/05/20 13:11 13:21 13:31 Temperature Pulse Rate 109 H 122 H 120 H Pulse Rate [ From Monitor] Respiratory 23 24 34 H Rate Respiratory Rate [Chest] Blood Pressure 102/51 102/51 102/51 O2 Sat by Pulse 98 86 91 Oximetry 03/05/20 03/05/20 03/05/20 13:41 13:51 14:01 Temperature Pulse Rate 117 H Pulse Rate [ From Monitor] Respiratory 21 15 15 Rate Respiratory Rate [Chest] Blood Pressure 102/51 102/51 101/64 O2 Sat by Pulse 93 99 99 Oximetry 03/05/20 03/05/20 03/05/20 14:11 14:21 14:31 Temperature Pulse Rate 102 H 103 H Pulse Rate [ From Monitor] Respiratory 32 H 20 32 H Rate Respiratory Rate [Chest] Blood Pressure 101/64 101/64 101/64 O2 Sat by Pulse 98 Oximetry 03/05/20 03/05/20 03/05/20 14:41 14:51 15:01 Temperature Pulse Rate 103 H 102 H 106 H Pulse Rate [ From Monitor] Respiratory 23 37 H 27 H Rate Respiratory Rate [Chest] Blood Pressure 101/64 101/64 111/77 O2 Sat by Pulse 98 95 Oximetry 03/05/20 03/05/20 03/05/20 15:11 15:21 15:31 Temperature Pulse Rate 102 H 108 H Pulse Rate [ From Monitor] Respiratory 17 33 H Rate Respiratory Rate [Chest] Blood Pressure 111/77 101/64 101/64 O2 Sat by Pulse 96 97 96 Oximetry 03/05/20 03/05/20 03/05/20 15:41 15:51 16:00 Temperature 98.1 F Pulse Rate Pulse Rate [ 75 From Monitor] Respiratory 30 H Rate Respiratory Rate [Chest] Blood Pressure 101/64 101/64 O2 Sat by Pulse 96 94 94 Oximetry 03/05/20 03/05/20 03/05/20 16:01 16:11 16:21 Temperature Pulse Rate Pulse Rate [ From Monitor] Respiratory Rate Respiratory Rate [Chest] Blood Pressure 87/60 87/60 87/60 O2 Sat by Pulse 98 98 98 Oximetry 03/05/20 03/05/20 03/05/20 16:31 16:41 16:51 Temperature Pulse Rate 86 84 Pulse Rate [ From Monitor] Respiratory 23 28 H Rate Respiratory Rate [Chest] Blood Pressure 87/60 87/60 110/63 O2 Sat by Pulse 99 98 99 Oximetry 03/05/20 03/05/20 03/05/20 17:01 17:11 17:21 Temperature Pulse Rate 108 H 119 H Pulse Rate [ From Monitor] Respiratory 20 28 H Rate Respiratory Rate [Chest] Blood Pressure 110/63 110/63 110/63 O2 Sat by Pulse 91 82 L Oximetry 03/05/20 03/05/20 03/05/20 17:31 17:41 17:51 Temperature Pulse Rate 96 H 98 H 95 H Pulse Rate [ From Monitor] Respiratory 15 19 31 H Rate Respiratory Rate [Chest] Blood Pressure 110/63 110/63 110/63 O2 Sat by Pulse 99 100 100 Oximetry 03/05/20 03/05/20 03/05/20 18:01 18:11 18:21 Temperature Pulse Rate 96 H 107 H Pulse Rate [ From Monitor] Respiratory 25 H 32 H 30 H Rate Respiratory Rate [Chest] Blood Pressure 116/41 116/41 116/41 O2 Sat by Pulse 99 98 98 Oximetry 03/05/20 03/05/20 03/05/20 18:31 18:41 18:51 Temperature Pulse Rate 92 H 100 H 97 H Pulse Rate [ From Monitor] Respiratory 29 H 15 29 H Rate Respiratory Rate [Chest] Blood Pressure 116/41 116/41 116/41 O2 Sat by Pulse 99 98 96 Oximetry 03/05/20 03/05/20 03/05/20 19:01 19:11 19:21 Temperature Pulse Rate 111 H 97 H 99 H Pulse Rate [ From Monitor] Respiratory 30 H Rate Respiratory Rate [Chest] Blood Pressure 116/41 116/41 116/41 O2 Sat by Pulse 96 96 Oximetry 03/05/20 03/05/20 03/05/20 19:31 19:41 19:51 Temperature Pulse Rate 102 H 96 H 91 H Pulse Rate [ From Monitor] Respiratory Rate Respiratory Rate [Chest] Blood Pressure 98/55 98/55 98/55 O2 Sat by Pulse 97 96 97 Oximetry 03/05/20 03/05/20 03/05/20 19:57 20:00 20:11 Temperature 98.1 F Pulse Rate 91 H 93 H Pulse Rate [ 96 H From Monitor] Respiratory 25 H Rate Respiratory Rate [Chest] Blood Pressure 100/57 100/57 O2 Sat by Pulse 97 98 Oximetry 03/05/20 03/05/20 03/05/20 20:13 20:21 20:31 Temperature Pulse Rate 97 H 92 H Pulse Rate [ From Monitor] Respiratory Rate Respiratory Rate [Chest] Blood Pressure 100/57 100/57 O2 Sat by Pulse 99 97 99 Oximetry 03/05/20 03/05/20 03/05/20 20:41 20:51 21:00 Temperature Pulse Rate 85 85 83 Pulse Rate [ From Monitor] Respiratory Rate Respiratory Rate [Chest] Blood Pressure 100/57 100/57 100/55 O2 Sat by Pulse 99 100 100 Oximetry 03/05/20 03/05/20 03/05/20 21:11 21:21 21:31 Temperature Pulse Rate 80 94 H 78 Pulse Rate [ From Monitor] Respiratory Rate Respiratory Rate [Chest] Blood Pressure 100/55 100/55 100/55 O2 Sat by Pulse 99 98 Oximetry 03/05/20 03/05/20 03/05/20 21:41 21:51 22:00 Temperature Pulse Rate 83 84 85 Pulse Rate [ From Monitor] Respiratory Rate Respiratory 25 H Rate [Chest] Blood Pressure 100/55 100/55 91/55 O2 Sat by Pulse 97 100 98 Oximetry 03/05/20 03/05/20 03/05/20 22:11 22:21 22:31 Temperature Pulse Rate 87 85 92 H Pulse Rate [ From Monitor] Respiratory Rate Respiratory Rate [Chest] Blood Pressure 91/55 91/55 91/55 O2 Sat by Pulse 100 98 98 Oximetry 03/05/20 03/05/20 03/05/20 22:41 22:51 23:00 Temperature Pulse Rate 82 82 Pulse Rate [ From Monitor] Respiratory 29 H Rate Respiratory Rate [Chest] Blood Pressure 91/55 91/55 100/58 O2 Sat by Pulse 98 99 99 Oximetry 03/05/20 03/05/20 03/05/20 23:07 23:11 23:21 Temperature Pulse Rate 77 78 81 Pulse Rate [ From Monitor] Respiratory 20 24 23 Rate Respiratory Rate [Chest] Blood Pressure 100/58 100/58 100/58 O2 Sat by Pulse 99 97 97 Oximetry 03/05/20 03/05/20 03/05/20 23:31 23:37 23:41 Temperature 98.4 F Pulse Rate 79 79 Pulse Rate [ From Monitor] Respiratory 27 H 32 H Rate Respiratory Rate [Chest] Blood Pressure 100/58 100/58 O2 Sat by Pulse 99 99 Oximetry 03/05/20 03/06/20 23:51 00:00 Temperature Pulse Rate 72 74 Pulse Rate [ 83 From Monitor] Respiratory 24 13 Rate Respiratory Rate [Chest] Blood Pressure 100/58 108/57 O2 Sat by Pulse 98 97 Oximetry General appearance: Present: severe distress - EENT Eyes: PERRL, EOM intact ENT: hearing intact, clear oral mucosa Ears: bilateral: normal - Neck Neck: supple, normal ROM - Respiratory Respiratory effort: normal Respiratory: bilateral: CTA, rhonchi (Bilateral), wheezing (Bilateral) - Breasts Breasts: normal - Cardiovascular Heart rate: 78 Rhythm: regular Heart Sounds: Present: S1 & S2. Absent: gallop, rub Extremities: pulses intact, No edema, normal color, Full ROM - Gastrointestinal General gastrointestinal: Present: soft, non-tender, non-distended, normal bowel sounds - Genitourinary Female genitourinary: normal - Integumentary Integumentary: clear, warm, dry - Musculoskeletal Musculoskeletal: 1, strength equal bilaterally - Neurologic Neurologic: moves all extremities - Psychiatric Psychiatric: memory intact, appropriate mood/affect, intact judgment & insight - Labs CBC & Chem 7: 03/04/20 06:06 03/04/20 06:06 Labs: Abnormal lab results 03/05/20 03/05/20 03/05/20 Range/Units 12:01 16:48 16:48 D-Dimer 1170.89 H (0-234) ng/mlDDU POC Glucose 116 H (70-105) mg/dL Ferritin 348.4 H (10.0-200.0) ng/mL Lactate Dehydrogenase (91-180) units/L C-Reactive Protein (0.00-1.30) mg/dL 03/05/20 03/05/20 Range/Units 16:48 17:40 D-Dimer (0-234) ng/mlDDU POC Glucose 233 H (70-105) mg/dL Ferritin (10.0-200.0) ng/mL Lactate Dehydrogenase 619 H (91-180) units/L C-Reactive Protein 3.50 H (0.00-1.30) mg/dL HEART Score - HEART Score Troponin: Troponin T < 0.010 ng/mL (0.00-0.029) 02/28/20 16:03
--- NOTE | 2020-03-06 00:21 | Progress Note ---
Assessment and Plan Critical care statement The high probability OF a clinically significant sudden or life-threatening deterioration of the cardiorespiratory system and endocrine system required my full and direct attention, intervention and postoperative management. The aggregate critical care time was 40 minutes. The time is in addition to time spent performing reported procedures but includes the followin: Data review and interpretation 2: Patient assessment and monitoring of vital signs 3: Documentation 4:: Medication orders and management Assessment and Plan - Patient Problems (1) Acute hypoxemic respiratory failure Current Visit: Yes Status: Acute Plan to address problem: Patient on 40 L high flow oxygen Worsening clinical picture Patient may need intubation Patient to transfer to ICU Dr. Love discussed the case with me Patient transferred to ICU Patient on high flow oxygen Trying to avoid intubation (2) Covid pneumonia Current Visit: Yes Status: Acute Plan to address problem: Patient is coronavirus PCR positive on 02/26/2020 Patient is also SARS-CoV-2 IgG positive Patient is not a candidate for Covid convalescent plasma Steroids Continue remdesivir for 5 days-today is day 5 of day 5 Continue anticoagulation Prone positioning as possible High flow oxygen (3) Pneumonia Current Visit: Yes Status: Acute Qualifiers: Laterality: bilateral Plan to address problem: Pneumonia protocol: Chest x-ray, CBC, CMP, supplemental oxygen, nebulizer therapy, pulse oximetry, IV antibiotic therapy, pulmonary toilet, blood culture. (4) severe sepsis Remains hypoxic likely due to bilateral pneumonia Continue IV antibiotics (5) DVT prophylaxis Current Visit: Yes Status: Acute Plan to address problem: High-dose Lovenox Subjective Date of service: 03/04/20 Principal diagnosis: Severe COVID-19 Interval history: 50 YO Female with Obesity Hypoventilation Syndrome presents to ED for evaluation. Patient states that she has "been feeling sick" for the past 2 w eeks with persistent symptoms over the same timeframe. Patient was seen and evaluated by her primary care physician and treated with oral antibiotics for outpatient pneumonia. Patient states that she has experienced persistent symptoms in spite of of compliance with medication. Patient reports fever, dry cough, shortness of breath, decreased exercise tolerance, nausea, multiple episodes of vomiting, multiple loose stools, loss of sense of smell, loss of sense of taste, fatigue, malaise, body aches. Patient transported to [facility] via private vehicle for further care and evaluation of the aforementioned symptoms. Patient seen and evaluated in the emergency department. All lab and imaging geoff dies reviewed. Patient found to have a fever to 102.1 F, as well as a pulse oximetry of 88% with exertion on room air which is consistent with acute hypoxemic respiratory failure. Patient underwent chest x-ray which revealed bilateral pneumonia. Patient admitted to medical floor and initiated on pneumonia protocol as well as coronavirus protocol. Coronavirus PCR ordered in the emergency department and is pending at time of admission. Patient acknowledges fever, but denies chest pain, palpitation, skin rash, recent ill contacts, trauma, or known exposure to COVID-19. No medication listed at time of admission. No prior admission for review. 02/29/2020 Patient alert, awake. Having cough. Having mild shortness of breath at rest. Patient is on vapotherm, FIO2 100% and O2 saturation 90%. Patient switched to BIPAP. But patient not using it.Patient afebrile. No leukocytosis. Complaining headache at times.Patients Huynh virus PCR is Positive. Patients chest xray done 02/24/20 reported Patchy bilateral pulmonary opacities are concerning for infection/pneumonia. 03/01/2020 03/01/2020 Patient on high flow oxygen and BiPAP 03/02/2020 Patient still on high flow oxygen and BiPAP 03/03/2020 Patient with worsening inflammatory markers Chest x-ray worsening with extensive consolidations Patient will be transferred to ICU 03/04/2020 Patient on high flow oxygen-40 L Worsening pulmonary alveolar infiltrates Possible intubation Objective - Constitutional Vitals: Vital Signs - 12hr 03/05/20 03/05/20 03/05/20 12:21 12:31 12:41 Temperature Pulse Rate 109 H 122 H 114 H Pulse Rate [ From Monitor] Respiratory 35 H 28 H 31 H Rate Respiratory Rate [Chest] Blood Pressure 104/64 104/64 104/64 O2 Sat by Pulse 97 90 95 Oximetry 03/05/20 03/05/20 03/05/20 12:51 12:52 13:01 Temperature Pulse Rate 113 H 113 H Pulse Rate [ From Monitor] Respiratory 31 H 22 Rate Respiratory Rate [Chest] Blood Pressure 114/63 114/63 O2 Sat by Pulse 97 97 97 Oximetry 03/05/20 03/05/20 03/05/20 13:11 13:21 13:31 Temperature Pulse Rate 109 H 122 H 120 H Pulse Rate [ From Monitor] Respiratory 23 24 34 H Rate Respiratory Rate [Chest] Blood Pressure 102/51 102/51 102/51 O2 Sat by Pulse 98 86 91 Oximetry 03/05/20 03/05/20 03/05/20 13:41 13:51 14:01 Temperature Pulse Rate 117 H Pulse Rate [ From Monitor] Respiratory 21 15 15 Rate Respiratory Rate [Chest] Blood Pressure 102/51 102/51 101/64 O2 Sat by Pulse 93 99 99 Oximetry 03/05/20 03/05/20 03/05/20 14:11 14:21 14:31 Temperature Pulse Rate 102 H 103 H Pulse Rate [ From Monitor] Respiratory 32 H 20 32 H Rate Respiratory Rate [Chest] Blood Pressure 101/64 101/64 101/64 O2 Sat by Pulse 98 Oximetry 03/05/20 03/05/20 03/05/20 14:41 14:51 15:01 Temperature Pulse Rate 103 H 102 H 106 H Pulse Rate [ From Monitor] Respiratory 23 37 H 27 H Rate Respiratory Rate [Chest] Blood Pressure 101/64 101/64 111/77 O2 Sat by Pulse 98 95 Oximetry 03/05/20 03/05/20 03/05/20 15:11 15:21 15:31 Temperature Pulse Rate 102 H 108 H Pulse Rate [ From Monitor] Respiratory 17 33 H Rate Respiratory Rate [Chest] Blood Pressure 111/77 101/64 101/64 O2 Sat by Pulse 96 97 96 Oximetry 03/05/20 03/05/20 03/05/20 15:41 15:51 16:00 Temperature 98.1 F Pulse Rate Pulse Rate [ 75 From Monitor] Respiratory 30 H Rate Respiratory Rate [Chest] Blood Pressure 101/64 101/64 O2 Sat by Pulse 96 94 94 Oximetry 03/05/20 03/05/20 03/05/20 16:01 16:11 16:21 Temperature Pulse Rate Pulse Rate [ From Monitor] Respiratory Rate Respiratory Rate [Chest] Blood Pressure 87/60 87/60 87/60 O2 Sat by Pulse 98 98 98 Oximetry 03/05/20 03/05/20 03/05/20 16:31 16:41 16:51 Temperature Pulse Rate 86 84 Pulse Rate [ From Monitor] Respiratory 23 28 H Rate Respiratory Rate [Chest] Blood Pressure 87/60 87/60 110/63 O2 Sat by Pulse 99 98 99 Oximetry 03/05/20 03/05/20 03/05/20 17:01 17:11 17:21 Temperature Pulse Rate 108 H 119 H Pulse Rate [ From Monitor] Respiratory 20 28 H Rate Respiratory Rate [Chest] Blood Pressure 110/63 110/63 110/63 O2 Sat by Pulse 91 82 L Oximetry 03/05/20 03/05/2020 17:31 17:41 17:51 Temperature Pulse Rate 96 H 98 H 95 H Pulse Rate [ From Monitor] Respiratory 15 19 31 H Rate Respiratory Rate [Chest] Blood Pressure 110/63 110/63 110/63 O2 Sat by Pulse 99 100 100 Oximetry 03/05/20 03/05/20 03/05/20 18:01 18:11 18:21 Temperature Pulse Rate 96 H 107 H Pulse Rate [ From Monitor] Respiratory 25 H 32 H 30 H Rate Respiratory Rate [Chest] Blood Pressure 116/41 116/41 116/41 O2 Sat by Pulse 99 98 98 Oximetry 03/05/20 03/05/20 03/05/20 18:31 18:41 18:51 Temperature Pulse Rate 92 H 100 H 97 H Pulse Rate [ From Monitor] Respiratory 29 H 15 29 H Rate Respiratory Rate [Chest] Blood Pressure 116/41 116/41 116/41 O2 Sat by Pulse 99 98 96 Oximetry 03/05/20 03/05/20 03/05/20 19:01 19:11 19:21 Temperature Pulse Rate 111 H 97 H 99 H Pulse Rate [ From Monitor] Respiratory 30 H Rate Respiratory Rate [Chest] Blood Pressure 116/41 116/41 116/41 O2 Sat by Pulse 96 96 Oximetry 03/05/20 03/05/20 03/05/20 19:31 19:41 19:51 Temperature Pulse Rate 102 H 96 H 91 H Pulse Rate [ From Monitor] Respiratory Rate Respiratory Rate [Chest] Blood Pressure 98/55 98/55 98/55 O2 Sat by Pulse 97 96 97 Oximetry 03/05/20 03/05/20 03/05/20 19:57 20:00 20:11 Temperature 98.1 F Pulse Rate 91 H 93 H Pulse Rate [ 96 H From Monitor] Respiratory 25 H Rate Respiratory Rate [Chest] Blood Pressure 100/57 100/57 O2 Sat by Pulse 97 98 Oximetry 03/05/20 03/05/20 03/05/20 20:13 20:21 20:31 Temperature Pulse Rate 97 H 92 H Pulse Rate [ From Monitor] Respiratory Rate Respiratory Rate [Chest] Blood Pressure 100/57 100/57 O2 Sat by Pulse 99 97 99 Oximetry 03/05/20 03/05/20 03/05/20 20:41 20:51 21:00 Temperature Pulse Rate 85 85 83 Pulse Rate [ From Monitor] Respiratory Rate Respiratory Rate [Chest] Blood Pressure 100/57 100/57 100/55 O2 Sat by Pulse 99 100 100 Oximetry 03/05/20 03/05/20 03/05/20 21:11 21:21 21:31 Temperature Pulse Rate 80 94 H 78 Pulse Rate [ From Monitor] Respiratory Rate Respiratory Rate [Chest] Blood Pressure 100/55 100/55 100/55 O2 Sat by Pulse 99 98 Oximetry 03/05/20 03/05/20 03/05/20 21:41 21:51 22:00 Temperature Pulse Rate 83 84 85 Pulse Rate [ From Monitor] Respiratory Rate Respiratory 25 H Rate [Chest] Blood Pressure 100/55 100/55 91/55 O2 Sat by Pulse 97 100 98 Oximetry 03/05/20 03/05/20 03/05/20 22:11 22:21 22:31 Temperature Pulse Rate 87 85 92 H Pulse Rate [ From Monitor] Respiratory Rate Respiratory Rate [Chest] Blood Pressure 91/55 91/55 91/55 O2 Sat by Pulse 100 98 98 Oximetry 03/05/20 03/05/20 03/05/20 22:41 22:51 23:00 Temperature Pulse Rate 82 82 Pulse Rate [ From Monitor] Respiratory 29 H Rate Respiratory Rate [Chest] Blood Pressure 91/55 91/55 100/58 O2 Sat by Pulse 98 99 99 Oximetry 03/05/20 03/05/20 03/05/20 23:07 23:11 23:21 Temperature Pulse Rate 77 78 81 Pulse Rate [ From Monitor] Respiratory 20 24 23 Rate Respiratory Rate [Chest] Blood Pressure 100/58 100/58 100/58 O2 Sat by Pulse 99 97 97 Oximetry 03/05/20 03/05/20 03/05/20 23:31 23:37 23:41 Temperature 98.4 F Pulse Rate 79 79 Pulse Rate [ From Monitor] Respiratory 27 H 32 H Rate Respiratory Rate [Chest] Blood Pressure 100/58 100/58 O2 Sat by Pulse 99 99 Oximetry 03/05/20 03/06/20 03/06/20 23:51 00:00 00:16 Temperature Pulse Rate 72 74 Pulse Rate [ 83 From Monitor] Respiratory 24 13 Rate Respiratory Rate [Chest] Blood Pressure 100/58 108/57 O2 Sat by Pulse 98 97 98 Oximetry General appearance: Present: severe distress, well-nourished - EENT Eyes: PERRL, EOM intact ENT: hearing intact, clear oral mucosa Ears: bilateral: normal - Neck Neck: supple, normal ROM - Respiratory Respiratory effort: normal Respiratory: bilateral: CTA - Breasts Breasts: normal - Cardiovascular Heart rate: 78 Rhythm: regular Heart Sounds: Present: S1 & S2. Absent: gallop, rub Extremities: pulses intact, No edema, normal color, Full ROM - Gastrointestinal General gastrointestinal: Present: soft, non-tender, non-distended, normal bowel sounds - Genitourinary Female genitourinary: normal - Integumentary Integumentary: clear, warm, dry - Musculoskeletal Musculoskeletal: 1, strength equal bilaterally - Neurologic Neurologic: moves all extremities - Psychiatric Psychiatric: memory intact, appropriate mood/affect, intact judgment & insight - Labs CBC & Chem 7: 03/04/20 06:06 03/04/20 06:06 Labs: Abnormal lab results 03/05/20 03/05/20 03/05/20 Range/Units 12:01 16:48 16:48 D-Dimer 1170.89 H (0-234) ng/mlDDU POC Glucose 116 H (70-105) mg/dL Ferritin 348.4 H (10.0-200.0) ng/mL Lactate Dehydrogenase (91-180) units/L C-Reactive Protein (0.00-1.30) mg/dL 03/05/20 03/05/20 Range/Units 16:48 17:40 D-Dimer (0-234) ng/mlDDU POC Glucose 233 H (70-105) mg/dL Ferritin (10.0-200.0) ng/mL Lactate Dehydrogenase 619 H (91-180) units/L C-Reactive Protein 3.50 H (0.00-1.30) mg/dL HEART Score - HEART Score Troponin: Troponin T < 0.010 ng/mL (0.00-0.029) 02/28/20 16:03
[2020-03-06] MEDS: HYDROcodone/HOMATROPINE 5-1.5MG /5 ML ORAL LIQD UNIT DOSE PO PRN (02:12)
--- NOTE | 2020-03-06 08:47 | Progress Note ---
Assessment and Plan Severe-critical COVID -clinically and radiographically consistent with COVID infection await SARS-CoV-2 PCR Acute hypoxemic respiratory failure Severe sepsis: Present on admission with low-grade fever, tachycardia, hypoxia, likely due to bilateral pneumonia. Bilateral pneumonia Morbid obesity -Conservative fluid management, intermittent diuretics as clinically indicated -Awake proning, lateral decubitus positioning as tolerated -CXR, ABG in am Supplemental oxygen to keep O2 sats>90% Bronchodilators with pulmonary hygiene per RT Accuchecks with glycemic control per SSI (While critically ill target blood gluc ose of 140-180 mg/dL; avoid hypoglycemia) Continue to monitor liver function test Continue to avoid nephrotoxins, conservative fluid management Continue to maintain sleep-wake cycle, avoid delirium CBC, BMP as clinically indicated Accuchecks with glycemic control. Keep blood glucose <180mg/dL, avoid hypoglycemia Monitor hemodynamics closely Continue steroids: on Dexamethasone VTE prophylaxis- on therapeutic Lovenox for COVID Continue contact and airborne isolation per facility protocol .... Re-evaluate in am & prn .... Continue other care per attending / other consultants CONDITION: CRITICAL PROGNOSIS: GUARDED CODE STATUS: FULL CODE The high probability of a clinically significant, sudden or life-threatening deterioration of the [respiratory] system(s) required my full and direct a ttention, intervention and personal management. The aggregate critical care time was [32] minutes without overlap. Time includes spent on; [x] Data Review and interpretation [x] Patient assessment and monitoring of vital signs [x] Documentation [x] Medication orders and management Subjective Date of service: 03/06/20 Principal diagnosis: Severe COVID-19 Interval history: Follow up for : Acute hypoxemic respiratory failure ; COVID infection: Severe sepsis: Present on admission with low-grade fever, tachycardia, hypoxia, likely due to bilateral pneumonia. ;Bilateral pneumonia; Morbid obesity No acute overnight events reported. Cough is improving. Down to FIO2 95%, 40L- comfortable without any increase in work of breathing No fevers, no nausea or vomiting. No diarrhea.On Dexamethasone and therapeutic Enoxaparin. Acceptable glycemic control Objective Vital Signs - 12hr 03/05/20 03/05/20 03/05/20 20:51 21:00 21:11 Temperature Pulse Rate 85 83 80 Pulse Rate [ From Monitor] Respiratory Rate Respiratory Rate [Chest] Blood Pressure 100/57 100/55 100/55 O2 Sat by Pulse 100 100 99 Oximetry 03/05/20 03/05/20 03/05/20 21:21 21:31 21:41 Temperature Pulse Rate 94 H 78 83 Pulse Rate [ From Monitor] Respiratory Rate Respiratory Rate [Chest] Blood Pressure 100/55 100/55 100/55 O2 Sat by Pulse 98 97 Oximetry 03/05/20 03/05/20 03/05/20 21:51 22:00 22:11 Temperature Pulse Rate 84 85 87 Pulse Rate [ From Monitor] Respiratory Rate Respiratory 25 H Rate [Chest] Blood Pressure 100/55 91/55 91/55 O2 Sat by Pulse 100 98 100 Oximetry 03/05/20 03/05/20 03/05/20 22:21 22:31 22:41 Temperature Pulse Rate 85 92 H 82 Pulse Rate [ From Monitor] Respiratory Rate Respiratory Rate [Chest] Blood Pressure 91/55 91/55 91/55 O2 Sat by Pulse 98 98 98 Oximetry 03/05/20 03/05/20 03/05/20 22:51 23:00 23:07 Temperature Pulse Rate 82 77 Pulse Rate [ From Monitor] Respiratory 29 H 20 Rate Respiratory Rate [Chest] Blood Pressure 91/55 100/58 100/58 O2 Sat by Pulse 99 99 99 Oximetry 03/05/20 03/05/20 03/05/20 23:11 23:21 23:31 Temperature Pulse Rate 78 81 79 Pulse Rate [ From Monitor] Respiratory 24 23 27 H Rate Respiratory Rate [Chest] Blood Pressure 100/58 100/58 100/58 O2 Sat by Pulse 97 97 99 Oximetry 03/05/20 03/05/20 03/05/20 23:37 23:41 23:51 Temperature 98.4 F Pulse Rate 79 72 Pulse Rate [ From Monitor] Respiratory 32 H 24 Rate Respiratory Rate [Chest] Blood Pressure 100/58 100/58 O2 Sat by Pulse 99 98 Oximetry 03/06/20 03/06/20 03/06/20 00:00 00:11 00:16 Temperature Pulse Rate 70 72 Pulse Rate [ 83 From Monitor] Respiratory 13 29 H Rate Respiratory Rate [Chest] Blood Pressure 108/57 100/58 O2 Sat by Pulse 97 99 98 Oximetry 03/06/20 03/06/20 03/06/20 00:21 00:31 00:41 Temperature Pulse Rate 74 81 86 Pulse Rate [ From Monitor] Respiratory 25 H 23 24 Rate Respiratory Rate [Chest] Blood Pressure 100/58 100/58 100/58 O2 Sat by Pulse 99 91 96 Oximetry 03/06/20 03/06/20 03/06/20 00:51 01:00 01:11 Temperature Pulse Rate 90 75 75 Pulse Rate [ From Monitor] Respiratory 22 30 H 18 Rate Respiratory Rate [Chest] Blood Pressure 100/58 97/38 108/57 O2 Sat by Pulse 97 96 Oximetry 03/06/20 03/06/20 03/06/20 01:21 01:31 01:41 Temperature Pulse Rate 76 76 74 Pulse Rate [ From Monitor] Respiratory 27 H 20 28 H Rate Respiratory Rate [Chest] Blood Pressure 108/57 108/57 108/57 O2 Sat by Pulse 96 95 97 Oximetry 03/06/20 03/06/20 03/06/20 01:51 02:00 02:01 Temperature Pulse Rate 75 83 Pulse Rate [ From Monitor] Respiratory 26 H 26 H Rate Respiratory Rate [Chest] Blood Pressure 108/57 83/61 O2 Sat by Pulse 98 99 100 Oximetry 03/06/20 03/06/20 03/06/20 02:11 02:21 02:31 Temperature Pulse Rate 78 79 78 Pulse Rate [ From Monitor] Respiratory 29 H 30 H 32 H Rate Respiratory Rate [Chest] Blood Pressure 83/61 83/61 83/61 O2 Sat by Pulse 99 96 95 Oximetry 03/06/20 03/06/20 03/06/20 02:41 02:51 03:00 Temperature Pulse Rate 76 77 74 Pulse Rate [ From Monitor] Respiratory 33 H 29 H 26 H Rate Respiratory Rate [Chest] Blood Pressure 83/61 83/61 86/28 O2 Sat by Pulse 96 96 Oximetry 03/06/20 03/06/20 03/06/20 03:11 03:13 03:21 Temperature 98.8 F Pulse Rate 73 74 Pulse Rate [ From Monitor] Respiratory 23 26 H Rate Respiratory Rate [Chest] Blood Pressure 86/28 86/28 O2 Sat by Pulse 98 97 Oximetry 03/06/20 03/06/20 03/06/20 03:31 03:41 03:51 Temperature Pulse Rate 72 77 85 Pulse Rate [ From Monitor] Respiratory 28 H 29 H 34 H Rate Respiratory Rate [Chest] Blood Pressure 86/28 86/28 86/28 O2 Sat by Pulse 97 96 95 Oximetry 03/06/20 03/06/20 03/06/20 04:00 04:01 04:11 Temperature Pulse Rate 77 74 75 Pulse Rate [ 75 From Monitor] Respiratory 28 H 25 H 27 H Rate Respiratory Rate [Chest] Blood Pressure 94/26 94/26 O2 Sat by Pulse 99 98 99 Oximetry 03/06/20 03/06/20 03/06/20 04:21 04:31 04:40 Temperature Pulse Rate 84 76 74 Pulse Rate [ From Monitor] Respiratory 14 17 26 H Rate Respiratory Rate [Chest] Blood Pressure 94/26 94/26 98/56 O2 Sat by Pulse 98 99 99 Oximetry 03/06/20 03/06/20 03/06/20 04:51 05:00 05:11 Temperature Pulse Rate 77 71 73 Pulse Rate [ From Monitor] Respiratory 21 25 H 26 H Rate Respiratory Rate [Chest] Blood Pressure 98/56 100/53 100/53 O2 Sat by Pulse 100 98 98 Oximetry 03/06/20 03/06/20 03/06/20 05:21 05:31 05:41 Temperature Pulse Rate 76 73 72 Pulse Rate [ From Monitor] Respiratory 25 H 28 H 25 H Rate Respiratory Rate [Chest] Blood Pressure 100/53 100/53 100/53 O2 Sat by Pulse 96 98 99 Oximetry 03/06/20 03/06/20 03/06/20 05:51 06:00 08:00 Temperature Pulse Rate 72 77 Pulse Rate [ From Monitor] Respiratory 23 29 H Rate Respiratory Rate [Chest] Blood Pressure 100/53 108/59 O2 Sat by Pulse 99 97 95 Oximetry Constitutional: alert, appears uncomfortable, other (Having cough) Eyes: non-icteric Neck: supple, no lymphadenopathy Effort: mildly labored Ascultation: Bilateral: rhonchi Cardiovascular: regular rate and rhythm Gastrointestinal: normoactive bowel sounds, soft, non-tender Integumentary: normal Extremities: no cyanosis, no edema Neurologic: non-focal exam, pupils equal and round Psychiatric: mood appropriate CBC and BMP: 03/13/20 07:23 03/13/20 07:23 ABG, PT/INR, D-dimer: ABG ABG pH 7.489 pH Units (7.350-7.450) H 03/04/20 11:40 POC ABG pCO2 40.0 mmHg (32.0-48.0) 03/01/20 08:53 ABG pCO2 29.9 mm Hg 03/04/20 11:40 POC ABG pO2 71.9 mmHg (83-108) L 03/01/20 08:53 ABG pO2 54.6 mm Hg (80.0-90.0) L 03/04/20 11:40 POC ABG HCO3 28.0 03/01/20 08:53 ABG O2 Saturation 90.4 % (95.0-99.0) L 03/04/20 11:40 PT/INR, D-dimer D-Dimer 1170.89 ng/mlDDU (0-234) H 03/05/20 16:48 Abnormal lab findings: Abnormal Labs 02/24/20 02/24/20 02/24/20 12:07 12:07 12:07 WBC RBC MCHC 35 H Lymph # (Auto) Seg Neutrophils % 76.6 H Seg Neuts % (Manual) Lymphocytes % (Manual) Seg Neutrophils # Seg Neutrophils # Man Lymphocytes # (Manual) Monocytes # (Manual) D-Dimer 236.88 H ABG pH POC ABG pO2 ABG pO2 ABG O2 Saturation ABG Glucose Oxyhemoglobin Carboxyhemoglobin Potassium 3.4 L Chloride BUN Creatinine Glucose POC Glucose Ferritin AST 42 H ALT Alkaline Phosphatase Lactate Dehydrogenase C-Reactive Protein Albumin Arterial Blood Glucose Coronavirus (PCR) SARS-CoV-2 IgG Ab 02/24/20 02/24/20 02/25/20 12:07 12:07 05:16 WBC RBC 3.53 L MCHC Lymph # (Auto) 1.1 L Seg Neutrophils % 75.0 H Seg Neuts % (Manual) Lymphocytes % (Manual) Seg Neutrophils # Seg Neutrophils # Man Lymphocytes # (Manual) Monocytes # (Manual) D-Dimer ABG pH POC ABG pO2 ABG pO2 ABG O2 Saturation ABG Glucose Oxyhemoglobin Carboxyhemoglobin Potassium Chloride BUN Creatinine Glucose 101 H POC Glucose Ferritin 200.8 H AST ALT Alkaline Phosphatase Lactate Dehydrogenase 315 H C-Reactive Protein 12.00 H Albumin Arterial Blood Glucose Coronavirus (PCR) SARS-CoV-2 IgG Ab 02/25/20 02/25/20 02/25/20 05:16 08:21 11:52 WBC RBC MCHC Lymph # (Auto) Seg Neutrophils % Seg Neuts % (Manual) Lymphocytes % (Manual) Seg Neutrophils # Seg Neutrophils # Man Lymphocytes # (Manual) Monocytes # (Manual) D-Dimer ABG pH POC ABG pO2 ABG pO2 ABG O2 Saturation ABG Glucose Oxyhemoglobin Carboxyhemoglobin Potassium Chloride 109.8 H BUN Creatinine 0.4 L Glucose 143 H POC Glucose 123 H 133 H Ferritin AST ALT Alkaline Phosphatase Lactate Dehydrogenase C-Reactive Protein Albumin Arterial Blood Glucose Coronavirus (PCR) SARS-CoV-2 IgG Ab 02/25/20 02/25/20 02/25/20 14:21 14:21 14:21 WBC RBC MCHC Lymph # (Auto) Seg Neutrophils % Seg Neuts % (Manual) Lymphocytes % (Manual) Seg Neutrophils # Seg Neutrophils # Man Lymphocytes # (Manual) Monocytes # (Manual) D-Dimer 396.96 H ABG pH POC ABG pO2 ABG pO2 ABG O2 Saturation ABG Glucose Oxyhemoglobin Carboxyhemoglobin Potassium Chloride BUN Creatinine Glucose 163 H POC Glucose Ferritin 335.1 H AST ALT Alkaline Phosphatase Lactate Dehydrogenase 406 H C-Reactive Protein 6.10 H Albumin Arterial Blood Glucose Coronavirus (PCR) SARS-CoV-2 IgG Ab 02/25/20 02/25/20 02/26/20 16:17 22:45 07:55 WBC RBC MCHC Lymph # (Auto) Seg Neutrophils % Seg Neuts % (Manual) Lymphocytes % (Manual) Seg Neutrophils # Seg Neutrophils # Man Lymphocytes # (Manual) Monocytes # (Manual) D-Dimer ABG pH POC ABG pO2 ABG pO2 ABG O2 Saturation ABG Glucose Oxyhemoglobin Carboxyhemoglobin Potassium Chloride BUN Creatinine Glucose POC Glucose 124 H 154 H 124 H Ferritin AST ALT Alkaline Phosphatase Lactate Dehydrogenase C-Reactive Protein Albumin Arterial Blood Glucose Coronavirus (PCR) SARS-CoV-2 IgG Ab 02/26/20 02/26/20 02/26/20 10:45 12:10 16:51 WBC RBC MCHC Lymph # (Auto) Seg Neutrophils % Seg Neuts % (Manual) Lymphocytes % (Manual) Seg Neutrophils # Seg Neutrophils # Man Lymphocytes # (Manual) Monocytes # (Manual) D-Dimer ABG pH POC ABG pO2 ABG pO2 ABG O2 Saturation ABG Glucose Oxyhemoglobin Carboxyhemoglobin Potassium Chloride BUN Creatinine Glucose POC Glucose 121 H 129 H Ferritin AST ALT Alkaline Phosphatase Lactate Dehydrogenase C-Reactive Protein Albumin Arterial Blood Glucose Coronavirus (PCR) Positive A SARS-CoV-2 IgG Ab 02/26/20 02/27/20 02/27/20 22:00 07:58 12:04 WBC RBC MCHC Lymph # (Auto) Seg Neutrophils % Seg Neuts % (Manual) Lymphocytes % (Manual) Seg Neutrophils # Seg Neutrophils # Man Lymphocytes # (Manual) Monocytes # (Manual) D-Dimer ABG pH POC ABG pO2 ABG pO2 ABG O2 Saturation ABG Glucose Oxyhemoglobin Carboxyhemoglobin Potassium Chloride BUN Creatinine Glucose POC Glucose 134 H 115 H 146 H Ferritin AST ALT Alkaline Phosphatase Lactate Dehydrogenase C-Reactive Protein Albumin Arterial Blood Glucose Coronavirus (PCR) SARS-CoV-2 IgG Ab 02/27/20 02/28/20 02/28/20 17:21 16:03 16:03 WBC RBC MCHC Lymph # (Auto) Seg Neutrophils % Seg Neuts % (Manual) Lymphocytes % (Manual) Seg Neutrophils # Seg Neutrophils # Man Lymphocytes # (Manual) Monocytes # (Manual) D-Dimer 995.51 H ABG pH POC ABG pO2 ABG pO2 ABG O2 Saturation ABG Glucose Oxyhemoglobin Carboxyhemoglobin Potassium Chloride BUN Creatinine Glucose POC Glucose 136 H Ferritin 464.3 H AST ALT Alkaline Phosphatase Lactate Dehydrogenase C-Reactive Protein Albumin Arterial Blood Glucose Coronavirus (PCR) SARS-CoV-2 IgG Ab 02/28/20 02/28/20 02/28/20 16:03 16:03 16:03 WBC RBC MCHC Lymph # (Auto) Seg Neutrophils % Seg Neuts % (Manual) Lymphocytes % (Manual) Seg Neutrophils # Seg Neutrophils # Man Lymphocytes # (Manual) Monocytes # (Manual) D-Dimer ABG pH POC ABG pO2 ABG pO2 ABG O2 Saturation ABG Glucose Oxyhemoglobin Carboxyhemoglobin Potassium Chloride BUN 23 H Creatinine 0.4 L Glucose 120 H POC Glucose Ferritin AST 72 H ALT 117 H Alkaline Phosphatase 137 H Lactate Dehydrogenase 779 H C-Reactive Protein 6.10 H Albumin 3.0 L Arterial Blood Glucose Coronavirus (PCR) SARS-CoV-2 IgG Ab Reactive A 02/28/20 02/29/20 02/29/20 22:06 07:38 11:11 WBC RBC MCHC Lymph # (Auto) Seg Neutrophils % Seg Neuts % (Manual) Lymphocytes % (Manual) Seg Neutrophils # Seg Neutrophils # Man Lymphocytes # (Manual) Monocytes # (Manual) D-Dimer ABG pH POC ABG pO2 ABG pO2 ABG O2 Saturation ABG Glucose Oxyhemoglobin Carboxyhemoglobin Potassium Chloride BUN Creatinine Glucose POC Glucose 119 H 121 H 129 H Ferritin AST ALT Alkaline Phosphatase Lactate Dehydrogenase C-Reactive Protein Albumin Arterial Blood Glucose Coronavirus (PCR) SARS-CoV-2 IgG Ab 02/29/20 02/29/20 03/01/20 15:58 22:02 05:23 WBC RBC MCHC Lymph # (Auto) Seg Neutrophils % Seg Neuts % (Manual) Lymphocytes % (Manual) Seg Neutrophils # Seg Neutrophils # Man Lymphocytes # (Manual) Monocytes # (Manual) D-Dimer 1841.84 H ABG pH POC ABG pO2 ABG pO2 ABG O2 Saturation ABG Glucose Oxyhemoglobin Carboxyhemoglobin Potassium Chloride BUN Creatinine Glucose POC Glucose 118 H 141 H Ferritin AST ALT Alkaline Phosphatase Lactate Dehydrogenase C-Reactive Protein Albumin Arterial Blood Glucose Coronavirus (PCR) SARS-CoV-2 IgG Ab 03/01/20 03/01/20 03/01/20 05:23 05:23 05:23 WBC 17.6 H RBC MCHC Lymph # (Auto) Seg Neutrophils % Seg Neuts % (Manual) 96.0 H Lymphocytes % (Manual) 2.0 L Seg Neutrophils # Seg Neutrophils # Man 16.9 H Lymphocytes # (Manual) 0.4 L Monocytes # (Manual) D-Dimer ABG pH POC ABG pO2 ABG pO2 ABG O2 Saturation ABG Glucose Oxyhemoglobin Carboxyhemoglobin Potassium Chloride BUN 19 H Creatinine 0.3 L Glucose 145 H POC Glucose Ferritin 323.9 H AST ALT 63 H Alkaline Phosphatase 132 H Lactate Dehydrogenase 746 H C-Reactive Protein 6.80 H Albumin 2.9 L Arterial Blood Glucose Coronavirus (PCR) SARS-CoV-2 IgG Ab 03/01/20 03/01/20 03/01/20 06:30 08:53 11:07 WBC RBC MCHC Lymph # (Auto) Seg Neutrophils % Seg Neuts % (Manual) Lymphocytes % (Manual) Seg Neutrophils # Seg Neutrophils # Man Lymphocytes # (Manual) Monocytes # (Manual) D-Dimer ABG pH 7.463 H POC ABG pO2 71.9 L ABG pO2 ABG O2 Saturation ABG Glucose 147 H Oxyhemoglobin Carboxyhemoglobin 0.2 L Potassium Chloride BUN Creatinine Glucose POC Glucose 132 H 126 H Ferritin AST ALT Alkaline Phosphatase Lactate Dehydrogenase C-Reactive Protein Albumin Arterial Blood Glucose 147 H Coronavirus (PCR) SARS-CoV-2 IgG Ab 12/16/20 12/16/20 12/17/20 15:50 21:24 08:08 WBC RBC MCHC Lymph # (Auto) Seg Neutrophils % Seg Neuts % (Manual) Lymphocytes % (Manual) Seg Neutrophils # Seg Neutrophils # Man Lymphocytes # (Manual) Monocytes # (Manual) D-Dimer ABG pH POC ABG pO2 ABG pO2 ABG O2 Saturation ABG Glucose Oxyhemoglobin Carboxyhemoglobin Potassium Chloride BUN Creatinine Glucose POC Glucose 122 H 142 H 152 H Ferritin AST ALT Alkaline Phosphatase Lactate Dehydrogenase C-Reactive Protein Albumin Arterial Blood Glucose Coronavirus (PCR) SARS-CoV-2 IgG Ab 03/02/20 03/02/20 03/02/20 11:41 16:51 21:56 WBC RBC MCHC Lymph # (Auto) Seg Neutrophils % Seg Neuts % (Manual) Lymphocytes % (Manual) Seg Neutrophils # Seg Neutrophils # Man Lymphocytes # (Manual) Monocytes # (Manual) D-Dimer ABG pH POC ABG pO2 ABG pO2 ABG O2 Saturation ABG Glucose Oxyhemoglobin Carboxyhemoglobin Potassium Chloride BUN Creatinine Glucose POC Glucose 136 H 137 H 126 H Ferritin AST ALT Alkaline Phosphatase Lactate Dehydrogenase C-Reactive Protein Albumin Arterial Blood Glucose Coronavirus (PCR) SARS-CoV-2 IgG Ab 03/03/20 03/03/20 03/03/20 08:05 13:10 19:32 WBC RBC MCHC Lymph # (Auto) Seg Neutrophils % Seg Neuts % (Manual) Lymphocytes % (Manual) Seg Neutrophils # Seg Neutrophils # Man Lymphocytes # (Manual) Monocytes # (Manual) D-Dimer ABG pH POC ABG pO2 ABG pO2 ABG O2 Saturation ABG Glucose Oxyhemoglobin Carboxyhemoglobin Potassium Chloride BUN 27 H Creatinine 0.5 L D Glucose 200 H POC Glucose 147 H 114 H Ferritin AST ALT Alkaline Phosphatase Lactate Dehydrogenase C-Reactive Protein Albumin 3.1 L Arterial Blood Glucose Coronavirus (PCR) SARS-CoV-2 IgG Ab 03/03/20 03/03/20 03/03/20 19:32 19:39 22:44 WBC 20.3 H RBC MCHC Lymph # (Auto) Seg Neutrophils % Seg Neuts % (Manual) 90.0 H Lymphocytes % (Manual) 4.0 L Seg Neutrophils # Seg Neutrophils # Man 18.3 H Lymphocytes # (Manual) 0.8 L Monocytes # (Manual) 1.2 H D-Dimer ABG pH POC ABG pO2 ABG pO2 ABG O2 Saturation ABG Glucose Oxyhemoglobin Carboxyhemoglobin Potassium Chloride BUN Creatinine Glucose POC Glucose 186 H 159 H Ferritin AST ALT Alkaline Phosphatase Lactate Dehydrogenase C-Reactive Protein Albumin Arterial Blood Glucose Coronavirus (PCR) SARS-CoV-2 IgG Ab 03/04/20 03/04/20 03/04/20 06:06 06:06 07:52 WBC 17.2 H RBC MCHC Lymph # (Auto) Seg Neutrophils % Seg Neuts % (Manual) 88.0 H Lymphocytes % (Manual) 5.0 L Seg Neutrophils # 15.3 H Seg Neutrophils # Man 15.1 H Lymphocytes # (Manual) 0.9 L Monocytes # (Manual) D-Dimer ABG pH POC ABG pO2 ABG pO2 ABG O2 Saturation ABG Glucose Oxyhemoglobin Carboxyhemoglobin Potassium Chloride BUN 31 H Creatinine 0.4 L Glucose 144 H POC Glucose 131 H Ferritin AST ALT Alkaline Phosphatase Lactate Dehydrogenase C-Reactive Protein Albumin 3.0 L Arterial Blood Glucose Coronavirus (PCR) SARS-CoV-2 IgG Ab 03/04/20 03/04/20 03/04/20 11:30 11:40 16:21 WBC RBC MCHC Lymph # (Auto) Seg Neutrophils % Seg Neuts % (Manual) Lymphocytes % (Manual) Seg Neutrophils # Seg Neutrophils # Man Lymphocytes # (Manual) Monocytes # (Manual) D-Dimer ABG pH 7.489 H POC ABG pO2 ABG pO2 54.6 L ABG O2 Saturation 90.4 L ABG Glucose Oxyhemoglobin 89.1 L Carboxyhemoglobin Potassium Chloride BUN Creatinine Glucose POC Glucose 121 H 155 H Ferritin AST ALT Alkaline Phosphatase Lactate Dehydrogenase C-Reactive Protein Albumin Arterial Blood Glucose Coronavirus (PCR) SARS-CoV-2 IgG Ab 03/05/20 03/05/20 03/05/20 12:01 16:48 16:48 WBC RBC MCHC Lymph # (Auto) Seg Neutrophils % Seg Neuts % (Manual) Lymphocytes % (Manual) Seg Neutrophils # Seg Neutrophils # Man Lymphocytes # (Manual) Monocytes # (Manual) D-Dimer 1170.89 H ABG pH POC ABG pO2 ABG pO2 ABG O2 Saturation ABG Glucose Oxyhemoglobin Carboxyhemoglobin Potassium Chloride BUN Creatinine Glucose POC Glucose 116 H Ferritin 348.4 H AST ALT Alkaline Phosphatase Lactate Dehydrogenase C-Reactive Protein Albumin Arterial Blood Glucose Coronavirus (PCR) SARS-CoV-2 IgG Ab 03/05/20 03/05/20 16:48 17:40 WBC RBC MCHC Lymph # (Auto) Seg Neutrophils % Seg Neuts % (Manual) Lymphocytes % (Manual) Seg Neutrophils # Seg Neutrophils # Man Lymphocytes # (Manual) Monocytes # (Manual) D-Dimer ABG pH POC ABG pO2 ABG pO2 ABG O2 Saturation ABG Glucose Oxyhemoglobin Carboxyhemoglobin Potassium Chloride BUN Creatinine Glucose POC Glucose 233 H Ferritin AST ALT Alkaline Phosphatase Lactate Dehydrogenase 619 H C-Reactive Protein 3.50 H Albumin Arterial Blood Glucose Coronavirus (PCR) SARS-CoV-2 IgG Ab
[2020-03-06 09:58] LABS: ABG Base Excess 0.5 mmol/L (-2.0-3.0); ABG HCO3 24.4 mmol/L (20.0-26.0); ABG Methemoglobin 0.4 % (0.0-1.5); ABG PCO2 36.8 mm Hg; ABG PH 7.439 pH Units (7.350-7.450); ABG PO2 77.4 mm Hg (80.0-90.0)
[2020-03-06] MEDS: dexAMETHasone 4 MG/ML VIAL IV SCH (10:49)
[2020-03-06] MEDS: POTASSIUM CHLORIDE ER 8 MEQ TAB PO SCH (10:49)
[2020-03-06] MEDS: ENOXAPARIN 80 MG/0.8 ML INJ SUB-Q SCH ×2 (10:49→23:21)
[2020-03-06] MEDS: ASCORBIC ACID 500 MG TAB PO SCH ×2 (10:50→23:21)
[2020-03-06] MEDS: FAMOTIDINE 10 MG TAB PO SCH ×2 (10:50→23:21)
[2020-03-06] MEDS: FUROSEMIDE 20 MG/2 ML INJ IV SCH (10:50)
[2020-03-06] MEDS: BENZONATATE 100 MG CAP PO SCH ×2 (10:50→23:21)
[2020-03-06] MEDS: CHOLECALCIFEROL (VIT D3) 5,000 UNIT TAB PO SCH (10:51)
--- NOTE | 2020-03-06 11:16 | Progress Note ---
Assessment and Plan Cultures: Blood culture no growth SARS CoV2 PCR positive SARS Covid 2 IgG positive Assessment: 50 year old female with history of obesity, admitted on 02/24/2020 secondary to 2-week history of feeling sick with dry cough, fever, generalized malaise, shortness of breath, dyspnea on exertion, nausea, vomiting, diarrhea, loss of smell and taste: #Severe sepsis: due to bilateral pneumonia. #Severe COVID pneumonia: Chest x-ray with bilateral patchy infiltrates. Inflammatory markers elevated on admission. Venous ultrasound no DVT. CTA showed no pulmonary embolism, bilateral pneumonia. #Acute hypoxemic respiratory failure: on HFNC. #Elevated D-dimer: CTA without PE, venous ultrasound without DVT #Elevated LFTs: from COVID #Obesity: Associated with worse outcomes. Recommendations: Complete at least 10 days of steroids, per ICU Completed remdesivir Monitor inflammatory markers - ferritin, Ddimer, CRP, LDH every 2-3 days Moisés Maravilla MD, FACP [facility] ([facility] O: [phone] F: [phone] Subjective Date of service: 03/06/20 Principal diagnosis: Severe COVID-19 Interval history: No fever. Remains on HFNC. Objective - Exam Narrative Exam: Physical Exam (reviewed in chart to minimize risk of transmission) Constitutional: deferred Head, Ears, Nose: deferred Eyes: deferred Neck: deferred Oral: deferred Cardiovascular: deferred Respiratory: deferred GI: deferred Musculoskeletal: deferred Skin: deferred Hem/Lymphatic: deferred Psych: deferred Neurological: deferred - Constitutional Vitals: Vital Signs Temp Pulse Resp BP Pulse Ox 97.6 F 82 29 H 100/54 98 03/06/20 08:00 03/06/20 08:40 03/06/20 08:40 03/06/20 08:40 03/06/20 08:40 Temperature -Last 24 Hours Temperature 97.6 F Temperature 98.8 F Temperature 98.4 F Temperature 98.1 F Temperature 98.1 F Temperature 98.3 F - Labs CBC & Chem 7: 03/04/20 06:06 03/04/20 06:06 Labs: Abnormal lab results 03/05/20 03/05/20 03/05/20 Range/Units 12:01 16:48 16:48 D-Dimer 1170.89 H (0-234) ng/mlDDU ABG pO2 (80.0-90.0) mm Hg Oxyhemoglobin (95.0-99.0) % POC Glucose 116 H (70-105) mg/dL Ferritin 348.4 H (10.0-200.0) ng/mL Lactate Dehydrogenase (91-180) units/L C-Reactive Protein (0.00-1.30) mg/dL 03/05/20 03/05/20 03/06/20 Range/Units 16:48 17:40 09:40 D-Dimer (0-234) ng/mlDDU ABG pO2 77.4 L (80.0-90.0) mm Hg Oxyhemoglobin 94.5 L (95.0-99.0) % POC Glucose 233 H (70-105) mg/dL Ferritin (10.0-200.0) ng/mL Lactate Dehydrogenase 619 H (91-180) units/L C-Reactive Protein 3.50 H (0.00-1.30) mg/dL
--- NOTE | 2020-03-07 01:24 | Progress Note ---
Assessment and Plan Critical care statement The high probability OF a clinically significant sudden or life-threatening deterioration of the cardiorespiratory system and endocrine system required my full and direct attention, intervention and postoperative management. The aggregate critical care time was 40 minutes. The time is in addition to time spent performing reported procedures but includes the followin: Data review and interpretation 2: Patient assessment and monitoring of vital signs 3: Documentation 4:: Medication orders and management Assessment and Plan - Patient Problems (1) Acute hypoxemic respiratory failure Current Visit: Yes Status: Acute Plan to address problem: Patient on 40 L high flow oxygen Worsening clinical picture Patient may need intubation Patient to transfer to ICU Dr. Love discussed the case with me Patient transferred to ICU Patient on high flow oxygen Trying to avoid intubation (2) Covid pneumonia Current Visit: Yes Status: Acute Plan to address problem: Patient is coronavirus PCR positive on 02/26/2020 Patient is also SARS-CoV-2 IgG positive Patient is not a candidate for Covid convalescent plasma Steroids Continue remdesivir for 5 days-today is day 5 of day 5 Continue anticoagulation Prone positioning as possible High flow oxygen (3) Pneumonia Current Visit: Yes Status: Acute Qualifiers: Laterality: bilateral Plan to address problem: Pneumonia protocol: Chest x-ray, CBC, CMP, supplemental oxygen, nebulizer therapy, pulse oximetry, IV antibiotic therapy, pulmonary toilet, blood culture. (4) severe sepsis Remains hypoxic likely due to bilateral pneumonia Continue IV antibiotics (5) DVT prophylaxis Current Visit: Yes Status: Acute Plan to address problem: High-dose Lovenox Subjective Date of service: 03/06/20 Principal diagnosis: Severe COVID-19 Interval history: 50 YO Female with Obesity Hypoventilation Syndrome presents to ED for evaluation. Patient states that she has "been feeling sick" for the past 2 w eeks with persistent symptoms over the same timeframe. Patient was seen and evaluated by her primary care physician and treated with oral antibiotics for outpatient pneumonia. Patient states that she has experienced persistent symptoms in spite of of compliance with medication. Patient reports fever, dry cough, shortness of breath, decreased exercise tolerance, nausea, multiple episodes of vomiting, multiple loose stools, loss of sense of smell, loss of sense of taste, fatigue, malaise, body aches. Patient transported to [facility] via private vehicle for further care and evaluation of the aforementioned symptoms. Patient seen and evaluated in the emergency department. All lab and imaging geoff dies reviewed. Patient found to have a fever to 102.1 F, as well as a pulse oximetry of 88% with exertion on room air which is consistent with acute hypoxemic respiratory failure. Patient underwent chest x-ray which revealed bilateral pneumonia. Patient admitted to medical floor and initiated on pneumonia protocol as well as coronavirus protocol. Coronavirus PCR ordered in the emergency department and is pending at time of admission. Patient acknowledges fever, but denies chest pain, palpitation, skin rash, recent ill contacts, trauma, or known exposure to COVID-19. No medication listed at time of admission. No prior admission for review. 02/29/2020 Patient alert, awake. Having cough. Having mild shortness of breath at rest. Patient is on vapotherm, FIO2 100% and O2 saturation 90%. Patient switched to BIPAP. But patient not using it.Patient afebrile. No leukocytosis. Complaining headache at times.Patients [place] virus PCR is Positive. Patients chest xray done 02/24/20 reported Patchy bilateral pulmonary opacities are concerning for infection/pneumonia. 03/01/2020 03/01/2020 Patient on high flow oxygen and BiPAP 03/02/2020 Patient still on high flow oxygen and BiPAP 03/03/2020 Patient with worsening inflammatory markers Chest x-ray worsening with extensive consolidations Patient will be transferred to ICU 03/04/2020 Patient on high flow oxygen-40 L Worsening pulmonary alveolar infiltrates Possible intubation !05/07/19 On High flow oxygen Objective - Constitutional Vitals: Vital Signs - 12hr 03/06/20 03/06/20 03/06/20 13:30 13:40 13:50 Temperature Pulse Rate 109 H 114 H 106 H Pulse Rate [ From Monitor] Respiratory 33 H 37 H 31 H Rate Blood Pressure 101/59 101/59 101/59 O2 Sat by Pulse 97 86 98 Oximetry 03/06/20 03/06/20 03/06/20 14:00 14:10 14:20 Temperature Pulse Rate 96 H 91 H 101 H Pulse Rate [ From Monitor] Respiratory 30 H 31 H 26 H Rate Blood Pressure 105/49 105/49 105/49 O2 Sat by Pulse 98 87 Oximetry 03/06/20 03/06/20 03/06/20 14:30 14:40 14:50 Temperature Pulse Rate 109 H 97 H 104 H Pulse Rate [ From Monitor] Respiratory 16 19 34 H Rate Blood Pressure 105/49 105/49 105/49 O2 Sat by Pulse 93 99 99 Oximetry 03/06/20 03/06/20 03/06/20 15:00 15:10 15:20 Temperature Pulse Rate 102 H 101 H 101 H Pulse Rate [ From Monitor] Respiratory 37 H 24 27 H Rate Blood Pressure 121/77 121/77 121/77 O2 Sat by Pulse 99 97 99 Oximetry 03/06/20 03/06/20 03/06/20 15:30 15:40 15:50 Temperature Pulse Rate 104 H 98 H 99 H Pulse Rate [ From Monitor] Respiratory 17 18 24 Rate Blood Pressure 121/77 121/77 121/77 O2 Sat by Pulse 97 99 99 Oximetry 03/06/20 03/06/20 03/06/20 16:00 16:10 19:00 Temperature Pulse Rate 106 H 92 H Pulse Rate [ 106 H From Monitor] Respiratory 35 H 16 Rate Blood Pressure 121/76 121/76 109/69 O2 Sat by Pulse 99 88 Oximetry 03/06/20 03/06/20 03/06/20 19:16 19:30 19:42 Temperature 97.6 F Pulse Rate Pulse Rate [ From Monitor] Respiratory Rate Blood Pressure 109/69 O2 Sat by Pulse 100 100 Oximetry 03/06/20 03/06/20 03/06/20 19:46 19:56 20:00 Temperature Pulse Rate 80 88 Pulse Rate [ From Monitor] Respiratory 30 H 45 H Rate Blood Pressure 109/69 109/51 O2 Sat by Pulse 99 99 89 Oximetry 03/06/20 03/06/20 03/06/20 20:05 20:16 20:30 Temperature Pulse Rate 96 H 92 H Pulse Rate [ 88 From Monitor] Respiratory 22 18 18 Rate Blood Pressure 109/51 109/51 O2 Sat by Pulse 99 99 98 Oximetry 03/06/20 03/06/20 03/06/20 20:46 21:00 22:00 Temperature Pulse Rate 94 H 81 102 H Pulse Rate [ From Monitor] Respiratory 24 20 29 H Rate Blood Pressure 109/51 90/40 95/54 O2 Sat by Pulse 99 99 Oximetry 03/06/20 03/06/20 23:00 23:33 Temperature 97.8 F Pulse Rate Pulse Rate [ From Monitor] Respiratory 29 H Rate Blood Pressure 111/62 O2 Sat by Pulse Oximetry General appearance: Present: no acute distress, severe distress, well-nourished - EENT Eyes: PERRL, EOM intact ENT: hearing intact, clear oral mucosa Ears: bilateral: normal - Neck Neck: supple, normal ROM - Respiratory Respiratory effort: normal Respiratory: bilateral: CTA - Breasts Breasts: normal - Cardiovascular Heart rate: 78 Rhythm: regular Heart Sounds: Present: S1 & S2. Absent: gallop, rub Extremities: pulses intact, No edema, normal color, Full ROM - Gastrointestinal General gastrointestinal: Present: soft, non-tender, non-distended, normal bowel sounds - Genitourinary Female genitourinary: normal - Integumentary Integumentary: clear, warm, dry - Musculoskeletal Musculoskeletal: 1, strength equal bilaterally - Neurologic Neurologic: moves all extremities - Psychiatric Psychiatric: appropriate mood/affect, intact judgment & insight, memory intact - Labs CBC & Chem 7: 03/04/20 06:06 03/04/20 06:06 Labs: Abnormal lab results 03/06/20 03/06/20 03/06/20 Range/Units 09:40 11:52 17:05 ABG pO2 77.4 L (80.0-90.0) mm Hg Oxyhemoglobin 94.5 L (95.0-99.0) % POC Glucose 168 H 163 H (70-105) mg/dL HEART Score - HEART Score Troponin: Troponin T < 0.010 ng/mL (0.00-0.029) 02/28/20 16:03
[2020-03-07 05:44] LABS: Basophils % (Auto) 0.2 % (0.0-1.8); Eosinophils # (Auto) 0.2 K/mm3 (0.0-0.4); Eosinophils % (Auto) 0.9 % (0.0-4.3); Hematocrit 38.3 % (30.3-42.9); Hemoglobin 12.7 gm/dl (10.1-14.3); Lymphocytes # (Auto) 1.3 K/mm3 (1.2-5.4); Lymphocytes % (Auto) 7.9 % (13.4-35.0); Mean Corpuscular HGB Conc 33 % (30-34); Mean Corpuscular Volume 91 fl (79-97); Monocytes # (Auto) 0.6 K/mm3 (0.0-0.8); Monocytes % (Auto) 3.5 % (0.0-7.3); Platelet Count 259 K/mm3 (140-440)
[2020-03-07 05:57] LABS: Alanine Aminotransferase 24 units/L (7-56); Albumin 3.1 g/dL (3.9-5); BUN/Creatinine Ratio 68; Blood Urea Nitrogen 27 mg/dL (7-17); Calcium 8.9 mg/dL (8.4-10.2); Hemolysis Index 3
[2020-03-07] MEDS: dexAMETHasone 4 MG/ML VIAL IV SCH (10:14)
[2020-03-07] MEDS: ENOXAPARIN 80 MG/0.8 ML INJ SUB-Q SCH ×2 (10:14→21:45)
[2020-03-07] MEDS: FUROSEMIDE 20 MG/2 ML INJ IV SCH (10:15)
[2020-03-07] MEDS: POTASSIUM CHLORIDE ER 8 MEQ TAB PO SCH (10:15)
[2020-03-07] MEDS: BENZONATATE 100 MG CAP PO SCH ×2 (10:16→21:46)
[2020-03-07] MEDS: ASCORBIC ACID 500 MG TAB PO SCH ×2 (10:16→21:46)
[2020-03-07] MEDS: FAMOTIDINE 10 MG TAB PO SCH ×2 (10:16→21:46)
[2020-03-07] MEDS: CHOLECALCIFEROL (VIT D3) 5,000 UNIT TAB PO SCH (10:17)
--- NOTE | 2020-03-07 12:34 | Progress Note ---
Assessment and Plan PUI-COVID Acute hypoxemic respiratory failure Severe sepsis Bilateral pneumonia HFpEF Morbid obesity - repeat CXR - deploy BIPAP qhs with prn daytime use - get midline - continue systemic steroids for >/= 10 days - continue awake proning as tolerated - s/p Remdesivir course - accuchecks with glycemic control per SSI (While critically ill target blood glucose of 140-180 mg/dL; avoid hypoglycemia) - wean supplemental oxygen for target O2 sat's > 92% acutely - VAP bundle addressed - bronchodilators with pulmonary hygiene per RT - avoid nephrotoxins, renally dose all medications - complete antiinfective's per ID rec's - prn analgesia per pain score - Maintenance of sleep-wake cycle, avoid delirium - aspiration precautions - G.I. & VTE prophylaxis (empiric weight based full dose anticoagulation acutely) - PT/OT/ROM exercises - continue mobility protocols for pressure ulcer prophylaxis - Monitor hemodynamics closely - continue other care per attending / other consultants - discharge planning ongoing concurrently .... Re-evaluate in am & prn CONDITION: CRITICAL PROGNOSIS: GUARDED CODE STATUS: FULL CODE The high probability of a clinically significant, sudden or life-threatening deterioration of the [respiratory, cardiovascular & hematologic] system(s) required my full and direct attention, intervention and personal management. The aggregate critical care time was [34] minutes without overlap. Time includes spent on; [x] Data Review and interpretation [x] Patient assessment and monitoring of vital signs [x] Documentation [x] Medication orders and management Subjective Date of service: 03/07/20 Principal diagnosis: COVID-19 infection; Ac hypoxemic resp failure; Severe sepsis; PNA; Obesity Interval history: Patient is seen today for: PUI COVID-19; Acute hypoxemic respiratory failure; Severe sepsis; Bilateral pneumonia; Morbid obesity Seen and examined at bedside; 24hour events reviewed; nursing and respiratory care staff consulted; no adverse overnight events reported to me; restring peacefully in bed; remains on 100% FiO2 via vapotherm and NRB; no emesis or overt aspiration; no chest pain; + dry cough Objective Vital Signs - 12hr 03/07/20 03/07/20 03/07/20 01:00 02:00 03:00 Temperature Pulse Rate 77 74 76 Pulse Rate [ From Monitor] Respiratory 23 29 H 26 H Rate Blood Pressure 203/118 117/78 120/71 O2 Sat by Pulse 99 97 99 Oximetry 03/07/20 03/07/20 03/07/20 03:37 04:00 05:00 Temperature 97.8 F Pulse Rate 78 75 Pulse Rate [ 92 H From Monitor] Respiratory 22 30 H Rate Blood Pressure 115/63 107/61 O2 Sat by Pulse 97 99 Oximetry 03/07/20 03/07/20 03/07/20 06:00 06:30 07:00 Temperature Pulse Rate 74 74 Pulse Rate [ From Monitor] Respiratory 26 H 21 Rate Blood Pressure 107/61 95/46 O2 Sat by Pulse 99 99 99 Oximetry 03/07/20 03/07/20 03/07/20 08:00 09:00 09:47 Temperature Pulse Rate 82 98 H Pulse Rate [ 92 H From Monitor] Respiratory 21 26 H Rate Blood Pressure 109/54 107/52 O2 Sat by Pulse 98 100 96 Oximetry 03/07/20 03/07/20 10:00 11:00 Temperature Pulse Rate 107 H 114 H Pulse Rate [ From Monitor] Respiratory 21 21 Rate Blood Pressure 103/59 103/59 O2 Sat by Pulse 98 97 Oximetry Constitutional: alert, appears uncomfortable, other (Having cough) Eyes: non-icteric ENT: oropharynx moist Neck: supple, no lymphadenopathy, other (+ large neck circumference) Effort: mildly labored Ascultation: Bilateral: rales (bases) Percussion: Bilateral: not dull Cardiovascular: regular rate and rhythm Gastrointestinal: normoactive bowel sounds, soft, non-tender, non-distended Integumentary: normal Extremities: no cyanosis, no edema, pink and warm, pulses normal Neurologic: non-focal exam, pupils equal and round, CN II-XII normal, motor strength normal and Psychiatric: mood appropriate, anxious CBC and BMP: 03/07/20 04:22 03/07/20 04:22 ABG, PT/INR, D-dimer: ABG ABG pH 7.439 pH Units (7.350-7.450) 03/06/20 09:40 POC ABG pCO2 40.0 mmHg (32.0-48.0) 03/01/20 08:53 ABG pCO2 36.8 mm Hg 03/06/20 09:40 POC ABG pO2 71.9 mmHg (83-108) L 03/01/20 08:53 ABG pO2 77.4 mm Hg (80.0-90.0) L 03/06/20 09:40 POC ABG HCO3 28.0 03/01/20 08:53 ABG O2 Saturation 96.0 % (95.0-99.0) 03/06/20 09:40 PT/INR, D-dimer D-Dimer 1170.89 ng/mlDDU (0-234) H 03/05/20 16:48 Abnormal lab findings: Abnormal Labs 02/24/20 02/24/20 02/24/20 12:07 12:07 12:07 WBC RBC MCHC 35 H Lymph % (Auto) Lymph # (Auto) Seg Neutrophils % 76.6 H Seg Neuts % (Manual) Lymphocytes % (Manual) Seg Neutrophils # Seg Neutrophils # Man Lymphocytes # (Manual) Monocytes # (Manual) D-Dimer 236.88 H ABG pH POC ABG pO2 ABG pO2 ABG O2 Saturation ABG Glucose Oxyhemoglobin Carboxyhemoglobin Sodium Potassium 3.4 L Chloride BUN Creatinine Glucose POC Glucose Ferritin AST 42 H ALT Alkaline Phosphatase Lactate Dehydrogenase C-Reactive Protein Total Protein Albumin Arterial Blood Glucose Coronavirus (PCR) SARS-CoV-2 IgG Ab 02/24/20 02/24/20 02/25/20 12:07 12:07 05:16 WBC RBC 3.53 L MCHC Lymph % (Auto) Lymph # (Auto) 1.1 L Seg Neutrophils % 75.0 H Seg Neuts % (Manual) Lymphocytes % (Manual) Seg Neutrophils # Seg Neutrophils # Man Lymphocytes # (Manual) Monocytes # (Manual) D-Dimer ABG pH POC ABG pO2 ABG pO2 ABG O2 Saturation ABG Glucose Oxyhemoglobin Carboxyhemoglobin Sodium Potassium Chloride BUN Creatinine Glucose 101 H POC Glucose Ferritin 200.8 H AST ALT Alkaline Phosphatase Lactate Dehydrogenase 315 H C-Reactive Protein 12.00 H Total Protein Albumin Arterial Blood Glucose Coronavirus (PCR) SARS-CoV-2 IgG Ab 02/25/20 02/25/20 02/25/20 05:16 08:21 11:52 WBC RBC MCHC Lymph % (Auto) Lymph # (Auto) Seg Neutrophils % Seg Neuts % (Manual) Lymphocytes % (Manual) Seg Neutrophils # Seg Neutrophils # Man Lymphocytes # (Manual) Monocytes # (Manual) D-Dimer ABG pH POC ABG pO2 ABG pO2 ABG O2 Saturation ABG Glucose Oxyhemoglobin Carboxyhemoglobin Sodium Potassium Chloride 109.8 H BUN Creatinine 0.4 L Glucose 143 H POC Glucose 123 H 133 H Ferritin AST ALT Alkaline Phosphatase Lactate Dehydrogenase C-Reactive Protein Total Protein Albumin Arterial Blood Glucose Coronavirus (PCR) SARS-CoV-2 IgG Ab 02/25/20 02/25/20 02/25/20 14:21 14:21 14:21 WBC RBC MCHC Lymph % (Auto) Lymph # (Auto) Seg Neutrophils % Seg Neuts % (Manual) Lymphocytes % (Manual) Seg Neutrophils # Seg Neutrophils # Man Lymphocytes # (Manual) Monocytes # (Manual) D-Dimer 396.96 H ABG pH POC ABG pO2 ABG pO2 ABG O2 Saturation ABG Glucose Oxyhemoglobin Carboxyhemoglobin Sodium Potassium Chloride BUN Creatinine Glucose 163 H POC Glucose Ferritin 335.1 H AST ALT Alkaline Phosphatase Lactate Dehydrogenase 406 H C-Reactive Protein 6.10 H Total Protein Albumin Arterial Blood Glucose Coronavirus (PCR) SARS-CoV-2 IgG Ab 02/25/20 02/25/20 02/26/20 16:17 22:45 07:55 WBC RBC MCHC Lymph % (Auto) Lymph # (Auto) Seg Neutrophils % Seg Neuts % (Manual) Lymphocytes % (Manual) Seg Neutrophils # Seg Neutrophils # Man Lymphocytes # (Manual) Monocytes # (Manual) D-Dimer ABG pH POC ABG pO2 ABG pO2 ABG O2 Saturation ABG Glucose Oxyhemoglobin Carboxyhemoglobin Sodium Potassium Chloride BUN Creatinine Glucose POC Glucose 124 H 154 H 124 H Ferritin AST ALT Alkaline Phosphatase Lactate Dehydrogenase C-Reactive Protein Total Protein Albumin Arterial Blood Glucose Coronavirus (PCR) SARS-CoV-2 IgG Ab 02/26/20 02/26/20 02/26/20 10:45 12:10 16:51 WBC RBC MCHC Lymph % (Auto) Lymph # (Auto) Seg Neutrophils % Seg Neuts % (Manual) Lymphocytes % (Manual) Seg Neutrophils # Seg Neutrophils # Man Lymphocytes # (Manual) Monocytes # (Manual) D-Dimer ABG pH POC ABG pO2 ABG pO2 ABG O2 Saturation ABG Glucose Oxyhemoglobin Carboxyhemoglobin Sodium Potassium Chloride BUN Creatinine Glucose POC Glucose 121 H 129 H Ferritin AST ALT Alkaline Phosphatase Lactate Dehydrogenase C-Reactive Protein Total Protein Albumin Arterial Blood Glucose Coronavirus (PCR) Positive A SARS-CoV-2 IgG Ab 02/26/20 02/27/20 02/27/20 22:00 07:58 12:04 WBC RBC MCHC Lymph % (Auto) Lymph # (Auto) Seg Neutrophils % Seg Neuts % (Manual) Lymphocytes % (Manual) Seg Neutrophils # Seg Neutrophils # Man Lymphocytes # (Manual) Monocytes # (Manual) D-Dimer ABG pH POC ABG pO2 ABG pO2 ABG O2 Saturation ABG Glucose Oxyhemoglobin Carboxyhemoglobin Sodium Potassium Chloride BUN Creatinine Glucose POC Glucose 134 H 115 H 146 H Ferritin AST ALT Alkaline Phosphatase Lactate Dehydrogenase C-Reactive Protein Total Protein Albumin Arterial Blood Glucose Coronavirus (PCR) SARS-CoV-2 IgG Ab 02/27/20 02/28/20 02/28/20 17:21 16:03 16:03 WBC RBC MCHC Lymph % (Auto) Lymph # (Auto) Seg Neutrophils % Seg Neuts % (Manual) Lymphocytes % (Manual) Seg Neutrophils # Seg Neutrophils # Man Lymphocytes # (Manual) Monocytes # (Manual) D-Dimer 995.51 H ABG pH POC ABG pO2 ABG pO2 ABG O2 Saturation ABG Glucose Oxyhemoglobin Carboxyhemoglobin Sodium Potassium Chloride BUN Creatinine Glucose POC Glucose 136 H Ferritin 464.3 H AST ALT Alkaline Phosphatase Lactate Dehydrogenase C-Reactive Protein Total Protein Albumin Arterial Blood Glucose Coronavirus (PCR) SARS-CoV-2 IgG Ab 02/28/20 02/28/20 02/28/20 16:03 16:03 16:03 WBC RBC MCHC Lymph % (Auto) Lymph # (Auto) Seg Neutrophils % Seg Neuts % (Manual) Lymphocytes % (Manual) Seg Neutrophils # Seg Neutrophils # Man Lymphocytes # (Manual) Monocytes # (Manual) D-Dimer ABG pH POC ABG pO2 ABG pO2 ABG O2 Saturation ABG Glucose Oxyhemoglobin Carboxyhemoglobin Sodium Potassium Chloride BUN 23 H Creatinine 0.4 L Glucose 120 H POC Glucose Ferritin AST 72 H ALT 117 H Alkaline Phosphatase 137 H Lactate Dehydrogenase 779 H C-Reactive Protein 6.10 H Total Protein Albumin 3.0 L Arterial Blood Glucose Coronavirus (PCR) SARS-CoV-2 IgG Ab Reactive A 02/28/20 02/29/20 02/29/20 22:06 07:38 11:11 WBC RBC MCHC Lymph % (Auto) Lymph # (Auto) Seg Neutrophils % Seg Neuts % (Manual) Lymphocytes % (Manual) Seg Neutrophils # Seg Neutrophils # Man Lymphocytes # (Manual) Monocytes # (Manual) D-Dimer ABG pH POC ABG pO2 ABG pO2 ABG O2 Saturation ABG Glucose Oxyhemoglobin Carboxyhemoglobin Sodium Potassium Chloride BUN Creatinine Glucose POC Glucose 119 H 121 H 129 H Ferritin AST ALT Alkaline Phosphatase Lactate Dehydrogenase C-Reactive Protein Total Protein Albumin Arterial Blood Glucose Coronavirus (PCR) SARS-CoV-2 IgG Ab 02/29/20 02/29/20 03/01/20 15:58 22:02 05:23 WBC RBC MCHC Lymph % (Auto) Lymph # (Auto) Seg Neutrophils % Seg Neuts % (Manual) Lymphocytes % (Manual) Seg Neutrophils # Seg Neutrophils # Man Lymphocytes # (Manual) Monocytes # (Manual) D-Dimer 1841.84 H ABG pH POC ABG pO2 ABG pO2 ABG O2 Saturation ABG Glucose Oxyhemoglobin Carboxyhemoglobin Sodium Potassium Chloride BUN Creatinine Glucose POC Glucose 118 H 141 H Ferritin AST ALT Alkaline Phosphatase Lactate Dehydrogenase C-Reactive Protein Total Protein Albumin Arterial Blood Glucose Coronavirus (PCR) SARS-CoV-2 IgG Ab 03/01/20 03/01/20 03/01/20 05:23 05:23 05:23 WBC 17.6 H RBC MCHC Lymph % (Auto) Lymph # (Auto) Seg Neutrophils % Seg Neuts % (Manual) 96.0 H Lymphocytes % (Manual) 2.0 L Seg Neutrophils # Seg Neutrophils # Man 16.9 H Lymphocytes # (Manual) 0.4 L Monocytes # (Manual) D-Dimer ABG pH POC ABG pO2 ABG pO2 ABG O2 Saturation ABG Glucose Oxyhemoglobin Carboxyhemoglobin Sodium Potassium Chloride BUN 19 H Creatinine 0.3 L Glucose 145 H POC Glucose Ferritin 323.9 H AST ALT 63 H Alkaline Phosphatase 132 H Lactate Dehydrogenase 746 H C-Reactive Protein 6.80 H Total Protein Albumin 2.9 L Arterial Blood Glucose Coronavirus (PCR) SARS-CoV-2 IgG Ab 03/01/20 03/01/20 03/01/20 06:30 08:53 11:07 WBC RBC MCHC Lymph % (Auto) Lymph # (Auto) Seg Neutrophils % Seg Neuts % (Manual) Lymphocytes % (Manual) Seg Neutrophils # Seg Neutrophils # Man Lymphocytes # (Manual) Monocytes # (Manual) D-Dimer ABG pH 7.463 H POC ABG pO2 71.9 L ABG pO2 ABG O2 Saturation ABG Glucose 147 H Oxyhemoglobin Carboxyhemoglobin 0.2 L Sodium Potassium Chloride BUN Creatinine Glucose POC Glucose 132 H 126 H Ferritin AST ALT Alkaline Phosphatase Lactate Dehydrogenase C-Reactive Protein Total Protein Albumin Arterial Blood Glucose 147 H Coronavirus (PCR) SARS-CoV-2 IgG Ab 03/01/20 03/01/20 03/02/20 15:50 21:24 08:08 WBC RBC MCHC Lymph % (Auto) Lymph # (Auto) Seg Neutrophils % Seg Neuts % (Manual) Lymphocytes % (Manual) Seg Neutrophils # Seg Neutrophils # Man Lymphocytes # (Manual) Monocytes # (Manual) D-Dimer ABG pH POC ABG pO2 ABG pO2 ABG O2 Saturation ABG Glucose Oxyhemoglobin Carboxyhemoglobin Sodium Potassium Chloride BUN Creatinine Glucose POC Glucose 122 H 142 H 152 H Ferritin AST ALT Alkaline Phosphatase Lactate Dehydrogenase C-Reactive Protein Total Protein Albumin Arterial Blood Glucose Coronavirus (PCR) SARS-CoV-2 IgG Ab 03/02/20 03/02/20 03/02/20 11:41 16:51 21:56 WBC RBC MCHC Lymph % (Auto) Lymph # (Auto) Seg Neutrophils % Seg Neuts % (Manual) Lymphocytes % (Manual) Seg Neutrophils # Seg Neutrophils # Man Lymphocytes # (Manual) Monocytes # (Manual) D-Dimer ABG pH POC ABG pO2 ABG pO2 ABG O2 Saturation ABG Glucose Oxyhemoglobin Carboxyhemoglobin Sodium Potassium Chloride BUN Creatinine Glucose POC Glucose 136 H 137 H 126 H Ferritin AST ALT Alkaline Phosphatase Lactate Dehydrogenase C-Reactive Protein Total Protein Albumin Arterial Blood Glucose Coronavirus (PCR) SARS-CoV-2 IgG Ab 03/03/20 03/03/20 03/03/20 08:05 13:10 19:32 WBC RBC MCHC Lymph % (Auto) Lymph # (Auto) Seg Neutrophils % Seg Neuts % (Manual) Lymphocytes % (Manual) Seg Neutrophils # Seg Neutrophils # Man Lymphocytes # (Manual) Monocytes # (Manual) D-Dimer ABG pH POC ABG pO2 ABG pO2 ABG O2 Saturation ABG Glucose Oxyhemoglobin Carboxyhemoglobin Sodium Potassium Chloride BUN 27 H Creatinine 0.5 L D Glucose 200 H POC Glucose 147 H 114 H Ferritin AST ALT Alkaline Phosphatase Lactate Dehydrogenase C-Reactive Protein Total Protein Albumin 3.1 L Arterial Blood Glucose Coronavirus (PCR) SARS-CoV-2 IgG Ab 03/03/20 03/03/20 03/03/20 19:32 19:39 22:44 WBC 20.3 H RBC MCHC Lymph % (Auto) Lymph # (Auto) Seg Neutrophils % Seg Neuts % (Manual) 90.0 H Lymphocytes % (Manual) 4.0 L Seg Neutrophils # Seg Neutrophils # Man 18.3 H Lymphocytes # (Manual) 0.8 L Monocytes # (Manual) 1.2 H D-Dimer ABG pH POC ABG pO2 ABG pO2 ABG O2 Saturation ABG Glucose Oxyhemoglobin Carboxyhemoglobin Sodium Potassium Chloride BUN Creatinine Glucose POC Glucose 186 H 159 H Ferritin AST ALT Alkaline Phosphatase Lactate Dehydrogenase C-Reactive Protein Total Protein Albumin Arterial Blood Glucose Coronavirus (PCR) SARS-CoV-2 IgG Ab 03/04/20 03/04/20 03/04/20 06:06 06:06 07:52 WBC 17.2 H RBC MCHC Lymph % (Auto) Lymph # (Auto) Seg Neutrophils % Seg Neuts % (Manual) 88.0 H Lymphocytes % (Manual) 5.0 L Seg Neutrophils # 15.3 H Seg Neutrophils # Man 15.1 H Lymphocytes # (Manual) 0.9 L Monocytes # (Manual) D-Dimer ABG pH POC ABG pO2 ABG pO2 ABG O2 Saturation ABG Glucose Oxyhemoglobin Carboxyhemoglobin Sodium Potassium Chloride BUN 31 H Creatinine 0.4 L Glucose 144 H POC Glucose 131 H Ferritin AST ALT Alkaline Phosphatase Lactate Dehydrogenase C-Reactive Protein Total Protein Albumin 3.0 L Arterial Blood Glucose Coronavirus (PCR) SARS-CoV-2 IgG Ab 03/04/20 03/04/20 03/04/20 11:30 11:40 16:21 WBC RBC MCHC Lymph % (Auto) Lymph # (Auto) Seg Neutrophils % Seg Neuts % (Manual) Lymphocytes % (Manual) Seg Neutrophils # Seg Neutrophils # Man Lymphocytes # (Manual) Monocytes # (Manual) D-Dimer ABG pH 7.489 H POC ABG pO2 ABG pO2 54.6 L ABG O2 Saturation 90.4 L ABG Glucose Oxyhemoglobin 89.1 L Carboxyhemoglobin Sodium Potassium Chloride BUN Creatinine Glucose POC Glucose 121 H 155 H Ferritin AST ALT Alkaline Phosphatase Lactate Dehydrogenase C-Reactive Protein Total Protein Albumin Arterial Blood Glucose Coronavirus (PCR) SARS-CoV-2 IgG Ab 03/05/20 03/05/20 03/05/20 12:01 16:48 16:48 WBC RBC MCHC Lymph % (Auto) Lymph # (Auto) Seg Neutrophils % Seg Neuts % (Manual) Lymphocytes % (Manual) Seg Neutrophils # Seg Neutrophils # Man Lymphocytes # (Manual) Monocytes # (Manual) D-Dimer 1170.89 H ABG pH POC ABG pO2 ABG pO2 ABG O2 Saturation ABG Glucose Oxyhemoglobin Carboxyhemoglobin Sodium Potassium Chloride BUN Creatinine Glucose POC Glucose 116 H Ferritin 348.4 H AST ALT Alkaline Phosphatase Lactate Dehydrogenase C-Reactive Protein Total Protein Albumin Arterial Blood Glucose Coronavirus (PCR) SARS-CoV-2 IgG Ab 03/05/20 03/05/20 03/06/20 16:48 17:40 09:40 WBC RBC MCHC Lymph % (Auto) Lymph # (Auto) Seg Neutrophils % Seg Neuts % (Manual) Lymphocytes % (Manual) Seg Neutrophils # Seg Neutrophils # Man Lymphocytes # (Manual) Monocytes # (Manual) D-Dimer ABG pH POC ABG pO2 ABG pO2 77.4 L ABG O2 Saturation ABG Glucose Oxyhemoglobin 94.5 L Carboxyhemoglobin Sodium Potassium Chloride BUN Creatinine Glucose POC Glucose 233 H Ferritin AST ALT Alkaline Phosphatase Lactate Dehydrogenase 619 H C-Reactive Protein 3.50 H Total Protein Albumin Arterial Blood Glucose Coronavirus (PCR) SARS-CoV-2 IgG Ab 03/06/20 03/06/20 03/07/20 11:52 17:05 04:22 WBC 16.6 H RBC MCHC Lymph % (Auto) 7.9 L Lymph # (Auto) Seg Neutrophils % 87.5 H Seg Neuts % (Manual) Lymphocytes % (Manual) Seg Neutrophils # 14.5 H Seg Neutrophils # Man Lymphocytes # (Manual) Monocytes # (Manual) D-Dimer ABG pH POC ABG pO2 ABG pO2 ABG O2 Saturation ABG Glucose Oxyhemoglobin Carboxyhemoglobin Sodium Potassium Chloride BUN Creatinine Glucose POC Glucose 168 H 163 H Ferritin AST ALT Alkaline Phosphatase Lactate Dehydrogenase C-Reactive Protein Total Protein Albumin Arterial Blood Glucose Coronavirus (PCR) SARS-CoV-2 IgG Ab 03/07/20 03/07/20 04:22 11:27 WBC RBC MCHC Lymph % (Auto) Lymph # (Auto) Seg Neutrophils % Seg Neuts % (Manual) Lymphocytes % (Manual) Seg Neutrophils # Seg Neutrophils # Man Lymphocytes # (Manual) Monocytes # (Manual) D-Dimer ABG pH POC ABG pO2 ABG pO2 ABG O2 Saturation ABG Glucose Oxyhemoglobin Carboxyhemoglobin Sodium 134 L Potassium Chloride BUN 27 H Creatinine 0.4 L Glucose 109 H POC Glucose 108 H Ferritin AST ALT Alkaline Phosphatase Lactate Dehydrogenase C-Reactive Protein Total Protein 6.1 L Albumin 3.1 L Arterial Blood Glucose Coronavirus (PCR) SARS-CoV-2 IgG Ab Chest x-ray: pending Allied health notes reviewed: nursing
--- NOTE | 2020-03-07 13:46 | Progress Note ---
Assessment and Plan Cultures: Blood culture no growth SARS CoV2 PCR positive SARS Covid 2 IgG positive Assessment: 50 year old female with history of obesity, admitted on 02/24/2020 secondary to 2-week history of feeling sick with dry cough, fever, generalized malaise, shortness of breath, dyspnea on exertion, nausea, vomiting, diarrhea, loss of smell and taste: #Severe sepsis: due to bilateral pneumonia. #Severe COVID pneumonia: Chest x-ray with bilateral patchy infiltrates. Inflammatory markers elevated on admission. Venous ultrasound no DVT. CTA showed no pulmonary embolism, bilateral pneumonia. #Acute hypoxemic respiratory failure: on HFNC. #Elevated D-dimer: CTA without PE, venous ultrasound without DVT #Elevated LFTs: from COVID #Obesity: Associated with worse outcomes. Recommendations: Complete at least 10 days of steroids, per ICU Completed remdesivir Monitor inflammatory markers - ferritin, Ddimer, CRP, LDH every 2-3 days Moisés Maravilla MD, FACP [facility] O: [phone] F: [phone] Subjective Date of service: 03/07/20 Principal diagnosis: COVID-19 infection; Ac hypoxemic resp failure; Severe sepsis; PNA; Obesity Interval history: No fever. Remains on HFNC. Objective - Exam Narrative Exam: Physical Exam (reviewed in chart to minimize risk of transmission) Constitutional: deferred Head, Ears, Nose: deferred Eyes: deferred Neck: deferred Oral: deferred Cardiovascular: deferred Respiratory: deferred GI: deferred Musculoskeletal: deferred Skin: deferred Hem/Lymphatic: deferred Psych: deferred Neurological: deferred - Constitutional Vitals: Vital Signs Temp Pulse Resp BP Pulse Ox 97.8 F 109 H 29 H 176/152 100 03/07/20 03:37 03/07/20 13:00 03/07/20 13:00 03/07/20 13:00 03/07/20 13:07 Temperature -Last 24 Hours Temperature 97.8 F Temperature 97.8 F Temperature 97.6 F - Labs CBC & Chem 7: 03/07/20 04:22 03/07/20 04:22 Labs: Abnormal lab results 03/06/20 03/07/20 03/07/20 Range/Units 17:05 04:22 04:22 WBC 16.6 H (4.5-11.0) K/mm3 Lymph % (Auto) 7.9 L (13.4-35.0) % Seg Neutrophils % 87.5 H (40.0-70.0) % Seg Neutrophils # 14.5 H (1.8-7.7) K/mm3 Sodium 134 L (137-145) mmol/L BUN 27 H (7-17) mg/dL Creatinine 0.4 L (0.6-1.2) mg/dL Glucose 109 H (65-100) mg/dL POC Glucose 163 H (70-105) mg/dL Total Protein 6.1 L (6.3-8.2) g/dL Albumin 3.1 L (3.9-5) g/dL 03/07/ Range/Units 11:27 WBC (4.5-11.0) K/mm3 Lymph % (Auto) (13.4-35.0) % Seg Neutrophils % (40.0-70.0) % Seg Neutrophils # (1.8-7.7) K/mm3 Sodium (137-145) mmol/L BUN (7-17) mg/dL Creatinine (0.6-1.2) mg/dL Glucose (65-100) mg/dL POC Glucose 108 H (70-105) mg/dL Total Protein (6.3-8.2) g/dL Albumin (3.9-5) g/dL
[2020-03-07] MEDS: HYDROcodone/HOMATROPINE 5-1.5MG /5 ML ORAL LIQD UNIT DOSE PO PRN (20:40)
[2020-03-08] MEDS: HYDROcodone/HOMATROPINE 5-1.5MG /5 ML ORAL LIQD UNIT DOSE PO PRN (03:00)
--- NOTE | 2020-03-08 08:38 | Progress Note ---
Assessment and Plan Critical care statement The high probability OF a clinically significant sudden or life-threatening deterioration of the cardiorespiratory system and endocrine system required my full and direct attention, intervention and postoperative management. The aggregate critical care time was 32 minutes. The time is in addition to time spent performing reported procedures but includes the followin: Data review and interpretation 2: Patient assessment and monitoring of vital signs 3: Documentation 4:: Medication orders and management Assessment and Plan - Patient Problems (1) Acute hypoxemic respiratory failure Current Visit: Yes Status: Acute Plan to address problem: Patient on 40 L high flow oxygen Worsening clinical picture Patient may need intubation Patient to transfer to ICU Dr. Love discussed the case with me Patient transferred to ICU Patient on high flow oxygen Trying to avoid intubation (2) Covid pneumonia Current Visit: Yes Status: Acute Plan to address problem: Patient is coronavirus PCR positive on 02/26/2020 Patient is also SARS-CoV-2 IgG positive Patient is not a candidate for Covid convalescent plasma Steroids Continue remdesivir for 5 days-today is day 5 of day 5 Continue anticoagulation Prone positioning as possible High flow oxygen (3) Pneumonia Current Visit: Yes Status: Acute Qualifiers: Laterality: bilateral Plan to address problem: Pneumonia protocol: Chest x-ray, CBC, CMP, supplemental oxygen, nebulizer therapy, pulse oximetry, IV antibiotic therapy, pulmonary toilet, blood culture. (4) severe sepsis Remains hypoxic likely due to bilateral pneumonia Continue IV antibiotics (5) DVT prophylaxis Current Visit: Yes Status: Acute Plan to address problem: High-dose Lovenox Subjective Date of service: 03/07/20 Principal diagnosis: COVID-19 infection; Ac hypoxemic resp failure; Severe sepsis; PNA; Obesity Interval history: 50 YO Female with Obesity Hypoventilation Syndrome presents to ED for evaluation. Patient states that she has "been feeling sick" for the past 2 weeks with persistent symptoms over the same timeframe. Patient was seen and evaluated by her primary care physician and treated with oral antibiotics for outpatient pneumonia. Patient states that she has experienced persistent symptoms in spite of of compliance with medication. Patient reports fever, dry cough, shortness of breath, decreased exercise tolerance, nausea, multiple episodes of vomiting, multiple loose stools, loss of sense of smell, loss of sense of taste, fatigue, malaise, body aches. Patient transported to [facility] via pr ivate vehicle for further care and evaluation of the aforementioned symptoms. Patient seen and evaluated in the emergency department. All lab and imaging studies reviewed. Patient found to have a fever to 102.1 F, as well as a pulse oximetry of 88% with exertion on room air which is consistent with acute hypoxemic respiratory failure. Patient underwent chest x-ray which revealed bilateral pneumonia. Patient admitted to medical floor and initiated on pneumonia protocol as well as coronavirus protocol. Coronavirus PCR ordered in the emergency department and is pending at time of admission. Patient acknowledges fever, but denies chest pain, palpitation, skin rash, recent ill contacts, trauma, or known exposure to COVID-19. No medication listed at time of admission. No prior admission for review. 02/29/2020 Patient alert, awake. Having cough. Having mild shortness of breath at rest. Patient is on vapotherm, FIO2 100% and O2 saturation 90%. Patient switched to BIPAP. But patient not using it.Patient afebrile. No leukocytosis. Complaining headache at times.Patients [place] virus PCR is Positive. Patients chest xray done 02/24/20 reported Patchy bilateral pulmonary opacities are concerning for infection/pneumonia. 03/01/2020 03/01/2020 Patient on high flow oxygen and BiPAP 03/02/2020 Patient still on high flow oxygen and BiPAP 03/03/2020 Patient with worsening inflammatory markers Chest x-ray worsening with extensive consolidations Patient will be transferred to ICU 03/04/2020 Patient on high flow oxygen-40 L Worsening pulmonary alveolar infiltrates Possible intubation !05/07/19 On High flow oxygen 03/07/2020 Patient still on high flow oxygen Not intubated Objective - Constitutional Vitals: Vital Signs - 12hr 03/07/20 03/07/20 03/07/20 20:45 21:00 21:15 Temperature Pulse Rate 88 88 84 Pulse Rate [ From Monitor] Respiratory 27 H 21 20 Rate Blood Pressure 118/63 114/59 114/59 O2 Sat by Pulse 97 97 99 Oximetry 03/07/20 03/07/20 03/07/20 21:31 21:45 22:00 Temperature Pulse Rate 87 79 78 Pulse Rate [ From Monitor] Respiratory 22 20 21 Rate Blood Pressure 114/59 114/59 104/59 O2 Sat by Pulse 99 99 99 Oximetry 03/07/20 03/07/20 03/07/20 22:15 22:31 22:35 Temperature Pulse Rate 80 79 74 Pulse Rate [ From Monitor] Respiratory 21 26 H 26 H Rate Blood Pressure 104/59 104/59 104/59 O2 Sat by Pulse 100 100 100 Oximetry 03/07/20 03/07/20 03/07/20 22:45 23:00 23:15 Temperature Pulse Rate 75 72 87 Pulse Rate [ From Monitor] Respiratory 22 20 21 Rate Blood Pressure 104/59 102/62 102/62 O2 Sat by Pulse 100 100 100 Oximetry 03/07/20 03/07/20 03/07/20 23:31 23:45 23:55 Temperature Pulse Rate 81 74 Pulse Rate [ From Monitor] Respiratory 25 H 23 Rate Blood Pressure 102/62 102/62 O2 Sat by Pulse 100 100 100 Oximetry 03/08/20 03/08/20 03/08/20 00:00 00:15 00:31 Temperature 97.9 F Pulse Rate 74 73 73 Pulse Rate [ 71 From Monitor] Respiratory 20 18 18 Rate Blood Pressure 116/54 116/54 116/54 O2 Sat by Pulse 98 98 99 Oximetry 03/08/20 03/08/20 03/08/20 00:45 01:00 01:15 Temperature Pulse Rate 76 72 92 H Pulse Rate [ From Monitor] Respiratory 22 22 36 H Rate Blood Pressure 116/54 116/62 116/62 O2 Sat by Pulse 100 100 96 Oximetry 03/08/20 03/08/20 03/08/20 01:31 01:45 02:00 Temperature Pulse Rate 83 77 74 Pulse Rate [ From Monitor] Respiratory 30 H 24 25 H Rate Blood Pressure 116/62 116/62 123/67 O2 Sat by Pulse 98 100 Oximetry 03/08/20 03/08/20 03/08/20 02:15 02:31 02:45 Temperature Pulse Rate 81 74 72 Pulse Rate [ From Monitor] Respiratory 19 23 20 Rate Blood Pressure 123/67 123/67 123/67 O2 Sat by Pulse 100 99 100 Oximetry 03/08/20 03/08/20 03/08/20 03:00 03:15 03:31 Temperature Pulse Rate 82 70 Pulse Rate [ From Monitor] Respiratory 20 22 Rate Blood Pressure 116/64 116/64 116/64 O2 Sat by Pulse 100 99 99 Oximetry 03/08/20 03/08/20 03/08/20 03:45 04:00 04:15 Temperature 97.9 F Pulse Rate 72 73 74 Pulse Rate [ 73 From Monitor] Respiratory 18 20 25 H Rate Blood Pressure 116/64 117/62 116/64 O2 Sat by Pulse 99 98 98 Oximetry 03/08/20 03/08/20 03/08/20 04:31 04:45 05:00 Temperature Pulse Rate 70 70 77 Pulse Rate [ From Monitor] Respiratory 21 20 25 H Rate Blood Pressure 116/64 116/64 136/66 O2 Sat by Pulse 97 100 Oximetry 03/08/20 03/08/20 03/08/20 05:15 05:31 05:45 Temperature Pulse Rate 76 71 79 Pulse Rate [ From Monitor] Respiratory 20 19 23 Rate Blood Pressure 136/66 136/66 136/66 O2 Sat by Pulse 100 100 100 Oximetry 03/08/20 03/08/20 03/08/20 06:00 06:15 07:28 Temperature Pulse Rate 70 74 Pulse Rate [ From Monitor] Respiratory 22 24 Rate Blood Pressure 130/65 130/65 O2 Sat by Pulse 100 100 Oximetry General appearance: Present: no acute distress, well-nourished - EENT Eyes: PERRL, EOM intact ENT: hearing intact, clear oral mucosa Ears: bilateral: normal - Neck Neck: supple, normal ROM - Respiratory Respiratory effort: normal Respiratory: bilateral: CTA - Breasts Breasts: normal - Cardiovascular Heart rate: 78 Rhythm: regular Heart Sounds: Present: S1 & S2. Absent: gallop, rub Extremities: pulses intact, No edema, normal color, Full ROM - Gastrointestinal General gastrointestinal: Present: soft, non-tender, non-distended, normal bowel sounds - Genitourinary Female genitourinary: normal - Integumentary Integumentary: clear, warm, dry - Musculoskeletal Musculoskeletal: 1, strength equal bilaterally - Neurologic Neurologic: moves all extremities - Psychiatric Psychiatric: memory intact, appropriate mood/affect, intact judgment & insight - Labs CBC & Chem 7: 03/07/20 04:22 03/07/20 04:22 Labs: Abnormal lab results 03/07/20 03/07/20 Range/Units 11:27 16:55 POC Glucose 108 H 140 H (70-105) mg/dL HEART Score - HEART Score Troponin: Troponin T < 0.010 ng/mL (0.00-0.029) 02/28/20 16:03
[2020-03-08] MEDS: ENOXAPARIN 80 MG/0.8 ML INJ SUB-Q SCH ×2 (09:48→22:13)
[2020-03-08] MEDS: dexAMETHasone 4 MG/ML VIAL IV SCH (09:48)
[2020-03-08] MEDS: BENZONATATE 100 MG CAP PO SCH ×2 (09:49→22:16)
[2020-03-08] MEDS: FAMOTIDINE 10 MG TAB PO SCH ×2 (09:49→22:15)
[2020-03-08] MEDS: POTASSIUM CHLORIDE ER 8 MEQ TAB PO SCH (09:49)
[2020-03-08] MEDS: FUROSEMIDE 20 MG/2 ML INJ IV SCH (09:49)
[2020-03-08] MEDS: CHOLECALCIFEROL (VIT D3) 5,000 UNIT TAB PO SCH (09:50)
[2020-03-08] MEDS: traMADol 50 MG TAB PO PRN (09:50)
[2020-03-08] MEDS: ASCORBIC ACID 500 MG TAB PO SCH ×2 (09:50→22:16)
--- NOTE | 2020-03-08 12:30 | Progress Note ---
Assessment and Plan Cultures: Blood culture no growth SARS CoV2 PCR positive SARS Covid 2 IgG positive Assessment: 50 year old female with history of obesity, admitted on 02/24/2020 secondary to 2-week history of feeling sick with dry cough, fever, generalized malaise, shortness of breath, dyspnea on exertion, nausea, vomiting, diarrhea, loss of smell and taste: #Severe sepsis: due to bilateral pneumonia. #Severe COVID pneumonia: Chest x-ray with bilateral patchy infiltrates. Inflammatory markers elevated on admission. Venous ultrasound no DVT. CTA showed no pulmonary embolism, bilateral pneumonia. #Acute hypoxemic respiratory failure: on HFNC. #Elevated LFTs: from COVID. Resolved #Obesity: Associated with worse outcomes. Recommendations: Complete at least 10 days of steroids, per ICU Completed remdesivir Monitor inflammatory markers - ferritin, Ddimer, CRP, LDH every 2-3 days Moisés Maravilla MD, FACP [facility] ([facility] O: [phone] F: [phone] Subjective Date of service: 03/08/20 Principal diagnosis: COVID-19 infection; Ac hypoxemic resp failure; Severe sepsis; PNA; Obesity Interval history: Afebrile. Remains on HFNC but being weaned. Objective - Exam Narrative Exam: Physical Exam (reviewed in chart to minimize risk of transmission) Constitutional: deferred Head, Ears, Nose: deferred Eyes: deferred Neck: deferred Oral: deferred Cardiovascular: deferred Respiratory: deferred GI: deferred Musculoskeletal: deferred Skin: deferred Hem/Lymphatic: deferred Psych: deferred Neurological: deferred - Constitutional Vitals: Vital Signs Temp Pulse Resp BP Pulse Ox 97.9 F 78 21 119/65 98 03/08/20 04:00 03/08/20 08:31 03/08/20 08:31 03/08/20 08:31 03/08/20 11:33 Temperature -Last 24 Hours Temperature 97.9 F Temperature 97.9 F Temperature 98.7 F Temperature 98.5 F - Labs CBC & Chem 7: 03/07/20 04:22 03/07/20 04:22 Labs: Abnormal lab results 03/07/20 Range/Units 16:55 POC Glucose 140 H (70-105) mg/dL
--- NOTE | 2020-03-08 12:43 | Progress Note ---
Assessment and Plan PUI-COVID Acute hypoxemic respiratory failure Severe sepsis Bilateral pneumonia HFpEF Morbid obesity - repeat CXR in am - continue BIPAP qhs with prn daytime use - midline ordered - continue systemic steroids for >/= 10 days - continue awake proning as tolerated - s/p Remdesivir course - accuchecks with glycemic control per SSI (While critically ill target blood glucose of 140-180 mg/dL; avoid hypoglycemia) - wean supplemental oxygen for target O2 sat's > 92% acutely - VAP bundle addressed - bronchodilators with pulmonary hygiene per RT - avoid nephrotoxins, renally dose all medications - complete antiinfective's per ID rec's - prn analgesia per pain score - Maintenance of sleep-wake cycle, avoid delirium - aspiration precautions - G.I. & VTE prophylaxis (empiric weight based full dose anticoagulation acutely) - PT/OT/ROM exercises - continue mobility protocols for pressure ulcer prophylaxis - Monitor hemodynamics closely - continue other care per attending / other consultants - discharge planning ongoing concurrently .... Re-evaluate in am & prn .... transfer to [facility] CONDITION: CRITICAL PROGNOSIS: GUARDED CODE STATUS: FULL CODE The high probability of a clinically significant, sudden or life-threatening deterioration of the [respiratory, cardiovascular & hematologic] system(s) required my full and direct attention, intervention and personal management. The aggregate critical care time was [32] minutes without overlap. Time includes spent on; [x] Data Review and interpretation [x] Patient assessment and monitoring of vital signs [x] Documentation [x] Medication orders and management Subjective Date of service: 03/08/20 Principal diagnosis: COVID-19 infection; Ac hypoxemic resp failure; Severe sepsis; PNA; Obesity Interval history: Patient is seen today for: PUI COVID-19; Acute hypoxemic respiratory failure; Severe sepsis; Bilateral pneumonia; Morbid obesity Seen and examined at bedside; 24hour events reviewed; nursing and respiratory care staff consulted; no adverse overnight events reported to me; restring peacefully in bed; feels a little better; remains on HFNC but FiO2 down to 85% with some room to wean; No N/V/F/C; cough better Objective Vital Signs - 12hr 03/08/20 03/08/20 03/08/20 00:45 01:00 01:15 Temperature Pulse Rate 76 72 92 H Pulse Rate [ From Monitor] Respiratory 22 22 36 H Rate Blood Pressure 116/54 116/62 116/62 O2 Sat by Pulse 100 100 96 Oximetry 03/08/20 03/08/20 03/08/20 01:31 01:45 02:00 Temperature Pulse Rate 83 77 74 Pulse Rate [ From Monitor] Respiratory 30 H 24 25 H Rate Blood Pressure 116/62 116/62 123/67 O2 Sat by Pulse 98 100 Oximetry 03/08/20 03/08/20 03/08/20 02:15 02:31 02:45 Temperature Pulse Rate 81 74 72 Pulse Rate [ From Monitor] Respiratory 19 23 20 Rate Blood Pressure 123/67 123/67 123/67 O2 Sat by Pulse 100 99 100 Oximetry 03/08/20 03/08/20 03/08/20 03:00 03:15 03:31 Temperature Pulse Rate 82 70 Pulse Rate [ From Monitor] Respiratory 20 22 Rate Blood Pressure 116/64 116/64 116/64 O2 Sat by Pulse 100 99 99 Oximetry 03/08/20 03/08/20 03/08/20 03:45 04:00 04:15 Temperature 97.9 F Pulse Rate 72 73 74 Pulse Rate [ 73 From Monitor] Respiratory 18 20 25 H Rate Blood Pressure 116/64 117/62 116/64 O2 Sat by Pulse 99 98 98 Oximetry 03/08/20 03/08/20 03/08/20 04:31 04:45 05:00 Temperature Pulse Rate 70 70 77 Pulse Rate [ From Monitor] Respiratory 21 20 25 H Rate Blood Pressure 116/64 116/64 136/66 O2 Sat by Pulse 97 100 Oximetry 03/08/20 03/08/20 03/08/20 05:15 05:31 05:45 Temperature Pulse Rate 76 71 79 Pulse Rate [ From Monitor] Respiratory 20 19 23 Rate Blood Pressure 136/66 136/66 136/66 O2 Sat by Pulse 100 100 100 Oximetry 03/08/20 03/08/20 03/08/20 06:00 06:15 06:31 Temperature Pulse Rate 70 74 76 Pulse Rate [ From Monitor] Respiratory 22 24 19 Rate Blood Pressure 130/65 130/65 130/65 O2 Sat by Pulse 100 99 Oximetry 03/08/20 03/08/20 03/08/20 06:45 07:00 07:15 Temperature Pulse Rate 74 76 87 Pulse Rate [ From Monitor] Respiratory 19 19 33 H Rate Blood Pressure 130/65 134/70 134/70 O2 Sat by Pulse 99 99 99 Oximetry 03/08/20 03/08/20 03/08/20 07:28 07:31 07:45 Temperature Pulse Rate 74 86 Pulse Rate [ From Monitor] Respiratory 23 34 H Rate Blood Pressure 134/70 134/70 O2 Sat by Pulse 100 100 100 Oximetry 03/08/20 03/08/20 03/08/20 08:00 08:15 08:31 Temperature Pulse Rate 85 89 78 Pulse Rate [ From Monitor] Respiratory 35 H 32 H 21 Rate Blood Pressure 119/65 119/65 119/65 O2 Sat by Pulse 94 92 98 Oximetry 03/08/20 11:33 Temperature Pulse Rate Pulse Rate [ From Monitor] Respiratory Rate Blood Pressure O2 Sat by Pulse 98 Oximetry Constitutional: alert, appears uncomfortable (but less so), other (cough better) Eyes: non-icteric ENT: oropharynx moist Neck: supple, no lymphadenopathy, other (+ large neck circumference) Effort: mildly labored Ascultation: Bilateral: rales (bases) Percussion: Bilateral: not dull Cardiovascular: regular rate and rhythm Gastrointestinal: normoactive bowel sounds, soft, non-tender, non-distended Integumentary: normal Extremities: no cyanosis, no edema, pink and warm, pulses normal Neurologic: non-focal exam, pupils equal and round, CN II-XII normal, motor strength normal and Psychiatric: mood appropriate, anxious CBC and BMP: 03/07/20 04:22 03/07/20 04:22 ABG, PT/INR, D-dimer: ABG ABG pH 7.439 pH Units (7.350-7.450) 03/06/20 09:40 POC ABG pCO2 40.0 mmHg (32.0-48.0) 03/01/20 08:53 ABG pCO2 36.8 mm Hg 03/06/20 09:40 POC ABG pO2 71.9 mmHg (83-108) L 03/01/20 08:53 ABG pO2 77.4 mm Hg (80.0-90.0) L 03/06/20 09:40 POC ABG HCO3 28.0 03/01/20 08:53 ABG O2 Saturation 96.0 % (95.0-99.0) 03/06/20 09:40 PT/INR, D-dimer D-Dimer 1170.89 ng/mlDDU (0-234) H 03/05/20 16:48 Abnormal lab findings: Abnormal Labs 02/24/20 02/24/20 02/24/20 12:07 12:07 12:07 WBC RBC MCHC 35 H Lymph % (Auto) Lymph # (Auto) Seg Neutrophils % 76.6 H Seg Neuts % (Manual) Lymphocytes % (Manual) Seg Neutrophils # Seg Neutrophils # Man Lymphocytes # (Manual) Monocytes # (Manual) D-Dimer 236.88 H ABG pH POC ABG pO2 ABG pO2 ABG O2 Saturation ABG Glucose Oxyhemoglobin Carboxyhemoglobin Sodium Potassium 3.4 L Chloride BUN Creatinine Glucose POC Glucose Ferritin AST 42 H ALT Alkaline Phosphatase Lactate Dehydrogenase C-Reactive Protein Total Protein Albumin Arterial Blood Glucose Coronavirus (PCR) SARS-CoV-2 IgG Ab 02/24/20 02/24/20 02/25/20 12:07 12:07 05:16 WBC RBC 3.53 L MCHC Lymph % (Auto) Lymph # (Auto) 1.1 L Seg Neutrophils % 75.0 H Seg Neuts % (Manual) Lymphocytes % (Manual) Seg Neutrophils # Seg Neutrophils # Man Lymphocytes # (Manual) Monocytes # (Manual) D-Dimer ABG pH POC ABG pO2 ABG pO2 ABG O2 Saturation ABG Glucose Oxyhemoglobin Carboxyhemoglobin Sodium Potassium Chloride BUN Creatinine Glucose 101 H POC Glucose Ferritin 200.8 H AST ALT Alkaline Phosphatase Lactate Dehydrogenase 315 H C-Reactive Protein 12.00 H Total Protein Albumin Arterial Blood Glucose Coronavirus (PCR) SARS-CoV-2 IgG Ab 02/25/20 02/25/20 02/25/20 05:16 08:21 11:52 WBC RBC MCHC Lymph % (Auto) Lymph # (Auto) Seg Neutrophils % Seg Neuts % (Manual) Lymphocytes % (Manual) Seg Neutrophils # Seg Neutrophils # Man Lymphocytes # (Manual) Monocytes # (Manual) D-Dimer ABG pH POC ABG pO2 ABG pO2 ABG O2 Saturation ABG Glucose Oxyhemoglobin Carboxyhemoglobin Sodium Potassium Chloride 109.8 H BUN Creatinine 0.4 L Glucose 143 H POC Glucose 123 H 133 H Ferritin AST ALT Alkaline Phosphatase Lactate Dehydrogenase C-Reactive Protein Total Protein Albumin Arterial Blood Glucose Coronavirus (PCR) SARS-CoV-2 IgG Ab 02/25/20 02/25/20 02/25/20 14:21 14:21 14:21 WBC RBC MCHC Lymph % (Auto) Lymph # (Auto) Seg Neutrophils % Seg Neuts % (Manual) Lymphocytes % (Manual) Seg Neutrophils # Seg Neutrophils # Man Lymphocytes # (Manual) Monocytes # (Manual) D-Dimer 396.96 H ABG pH POC ABG pO2 ABG pO2 ABG O2 Saturation ABG Glucose Oxyhemoglobin Carboxyhemoglobin Sodium Potassium Chloride BUN Creatinine Glucose 163 H POC Glucose Ferritin 335.1 H AST ALT Alkaline Phosphatase Lactate Dehydrogenase 406 H C-Reactive Protein 6.10 H Total Protein Albumin Arterial Blood Glucose Coronavirus (PCR) SARS-CoV-2 IgG Ab 02/25/20 02/25/20 02/26/20 16:17 22:45 07:55 WBC RBC MCHC Lymph % (Auto) Lymph # (Auto) Seg Neutrophils % Seg Neuts % (Manual) Lymphocytes % (Manual) Seg Neutrophils # Seg Neutrophils # Man Lymphocytes # (Manual) Monocytes # (Manual) D-Dimer ABG pH POC ABG pO2 ABG pO2 ABG O2 Saturation ABG Glucose Oxyhemoglobin Carboxyhemoglobin Sodium Potassium Chloride BUN Creatinine Glucose POC Glucose 124 H 154 H 124 H Ferritin AST ALT Alkaline Phosphatase Lactate Dehydrogenase C-Reactive Protein Total Protein Albumin Arterial Blood Glucose Coronavirus (PCR) SARS-CoV-2 IgG Ab 02/26/20 02/26/20 02/26/20 10:45 12:10 16:51 WBC RBC MCHC Lymph % (Auto) Lymph # (Auto) Seg Neutrophils % Seg Neuts % (Manual) Lymphocytes % (Manual) Seg Neutrophils # Seg Neutrophils # Man Lymphocytes # (Manual) Monocytes # (Manual) D-Dimer ABG pH POC ABG pO2 ABG pO2 ABG O2 Saturation ABG Glucose Oxyhemoglobin Carboxyhemoglobin Sodium Potassium Chloride BUN Creatinine Glucose POC Glucose 121 H 129 H Ferritin AST ALT Alkaline Phosphatase Lactate Dehydrogenase C-Reactive Protein Total Protein Albumin Arterial Blood Glucose Coronavirus (PCR) Positive A SARS-CoV-2 IgG Ab 02/26/20 02/27/20 02/27/20 22:00 07:58 12:04 WBC RBC MCHC Lymph % (Auto) Lymph # (Auto) Seg Neutrophils % Seg Neuts % (Manual) Lymphocytes % (Manual) Seg Neutrophils # Seg Neutrophils # Man Lymphocytes # (Manual) Monocytes # (Manual) D-Dimer ABG pH POC ABG pO2 ABG pO2 ABG O2 Saturation ABG Glucose Oxyhemoglobin Carboxyhemoglobin Sodium Potassium Chloride BUN Creatinine Glucose POC Glucose 134 H 115 H 146 H Ferritin AST ALT Alkaline Phosphatase Lactate Dehydrogenase C-Reactive Protein Total Protein Albumin Arterial Blood Glucose Coronavirus (PCR) SARS-CoV-2 IgG Ab 02/27/20 02/28/20 02/28/20 17:21 16:03 16:03 WBC RBC MCHC Lymph % (Auto) Lymph # (Auto) Seg Neutrophils % Seg Neuts % (Manual) Lymphocytes % (Manual) Seg Neutrophils # Seg Neutrophils # Man Lymphocytes # (Manual) Monocytes # (Manual) D-Dimer 995.51 H ABG pH POC ABG pO2 ABG pO2 ABG O2 Saturation ABG Glucose Oxyhemoglobin Carboxyhemoglobin Sodium Potassium Chloride BUN Creatinine Glucose POC Glucose 136 H Ferritin 464.3 H AST ALT Alkaline Phosphatase Lactate Dehydrogenase C-Reactive Protein Total Protein Albumin Arterial Blood Glucose Coronavirus (PCR) SARS-CoV-2 IgG Ab 02/28/20 02/28/20 02/28/20 16:03 16:03 16:03 WBC RBC MCHC Lymph % (Auto) Lymph # (Auto) Seg Neutrophils % Seg Neuts % (Manual) Lymphocytes % (Manual) Seg Neutrophils # Seg Neutrophils # Man Lymphocytes # (Manual) Monocytes # (Manual) D-Dimer ABG pH POC ABG pO2 ABG pO2 ABG O2 Saturation ABG Glucose Oxyhemoglobin Carboxyhemoglobin Sodium Potassium Chloride BUN 23 H Creatinine 0.4 L Glucose 120 H POC Glucose Ferritin AST 72 H ALT 117 H Alkaline Phosphatase 137 H Lactate Dehydrogenase 779 H C-Reactive Protein 6.10 H Total Protein Albumin 3.0 L Arterial Blood Glucose Coronavirus (PCR) SARS-CoV-2 IgG Ab Reactive A 02/28/20 02/29/20 02/29/20 22:06 07:38 11:11 WBC RBC MCHC Lymph % (Auto) Lymph # (Auto) Seg Neutrophils % Seg Neuts % (Manual) Lymphocytes % (Manual) Seg Neutrophils # Seg Neutrophils # Man Lymphocytes # (Manual) Monocytes # (Manual) D-Dimer ABG pH POC ABG pO2 ABG pO2 ABG O2 Saturation ABG Glucose Oxyhemoglobin Carboxyhemoglobin Sodium Potassium Chloride BUN Creatinine Glucose POC Glucose 119 H 121 H 129 H Ferritin AST ALT Alkaline Phosphatase Lactate Dehydrogenase C-Reactive Protein Total Protein Albumin Arterial Blood Glucose Coronavirus (PCR) SARS-CoV-2 IgG Ab 02/29/20 02/29/20 03/01/20 15:58 22:02 05:23 WBC RBC MCHC Lymph % (Auto) Lymph # (Auto) Seg Neutrophils % Seg Neuts % (Manual) Lymphocytes % (Manual) Seg Neutrophils # Seg Neutrophils # Man Lymphocytes # (Manual) Monocytes # (Manual) D-Dimer 1841.84 H ABG pH POC ABG pO2 ABG pO2 ABG O2 Saturation ABG Glucose Oxyhemoglobin Carboxyhemoglobin Sodium Potassium Chloride BUN Creatinine Glucose POC Glucose 118 H 141 H Ferritin AST ALT Alkaline Phosphatase Lactate Dehydrogenase C-Reactive Protein Total Protein Albumin Arterial Blood Glucose Coronavirus (PCR) SARS-CoV-2 IgG Ab 03/01/20 03/01/20 03/01/20 05:23 05:23 05:23 WBC 17.6 H RBC MCHC Lymph % (Auto) Lymph # (Auto) Seg Neutrophils % Seg Neuts % (Manual) 96.0 H Lymphocytes % (Manual) 2.0 L Seg Neutrophils # Seg Neutrophils # Man 16.9 H Lymphocytes # (Manual) 0.4 L Monocytes # (Manual) D-Dimer ABG pH POC ABG pO2 ABG pO2 ABG O2 Saturation ABG Glucose Oxyhemoglobin Carboxyhemoglobin Sodium Potassium Chloride BUN 19 H Creatinine 0.3 L Glucose 145 H POC Glucose Ferritin 323.9 H AST ALT 63 H Alkaline Phosphatase 132 H Lactate Dehydrogenase 746 H C-Reactive Protein 6.80 H Total Protein Albumin 2.9 L Arterial Blood Glucose Coronavirus (PCR) SARS-CoV-2 IgG Ab 03/01/20 03/01/20 03/01/20 06:30 08:53 11:07 WBC RBC MCHC Lymph % (Auto) Lymph # (Auto) Seg Neutrophils % Seg Neuts % (Manual) Lymphocytes % (Manual) Seg Neutrophils # Seg Neutrophils # Man Lymphocytes # (Manual) Monocytes # (Manual) D-Dimer ABG pH 7.463 H POC ABG pO2 71.9 L ABG pO2 ABG O2 Saturation ABG Glucose 147 H Oxyhemoglobin Carboxyhemoglobin 0.2 L Sodium Potassium Chloride BUN Creatinine Glucose POC Glucose 132 H 126 H Ferritin AST ALT Alkaline Phosphatase Lactate Dehydrogenase C-Reactive Protein Total Protein Albumin Arterial Blood Glucose 147 H Coronavirus (PCR) SARS-CoV-2 IgG Ab 03/01/20 03/01/20 03/02/20 15:50 21:24 08:08 WBC RBC MCHC Lymph % (Auto) Lymph # (Auto) Seg Neutrophils % Seg Neuts % (Manual) Lymphocytes % (Manual) Seg Neutrophils # Seg Neutrophils # Man Lymphocytes # (Manual) Monocytes # (Manual) D-Dimer ABG pH POC ABG pO2 ABG pO2 ABG O2 Saturation ABG Glucose Oxyhemoglobin Carboxyhemoglobin Sodium Potassium Chloride BUN Creatinine Glucose POC Glucose 122 H 142 H 152 H Ferritin AST ALT Alkaline Phosphatase Lactate Dehydrogenase C-Reactive Protein Total Protein Albumin Arterial Blood Glucose Coronavirus (PCR) SARS-CoV-2 IgG Ab 03/02/20 03/02/20 03/02/20 11:41 16:51 21:56 WBC RBC MCHC Lymph % (Auto) Lymph # (Auto) Seg Neutrophils % Seg Neuts % (Manual) Lymphocytes % (Manual) Seg Neutrophils # Seg Neutrophils # Man Lymphocytes # (Manual) Monocytes # (Manual) D-Dimer ABG pH POC ABG pO2 ABG pO2 ABG O2 Saturation ABG Glucose Oxyhemoglobin Carboxyhemoglobin Sodium Potassium Chloride BUN Creatinine Glucose POC Glucose 136 H 137 H 126 H Ferritin AST ALT Alkaline Phosphatase Lactate Dehydrogenase C-Reactive Protein Total Protein Albumin Arterial Blood Glucose Coronavirus (PCR) SARS-CoV-2 IgG Ab 03/03/20 03/03/20 03/03/20 08:05 13:10 19:32 WBC RBC MCHC Lymph % (Auto) Lymph # (Auto) Seg Neutrophils % Seg Neuts % (Manual) Lymphocytes % (Manual) Seg Neutrophils # Seg Neutrophils # Man Lymphocytes # (Manual) Monocytes # (Manual) D-Dimer ABG pH POC ABG pO2 ABG pO2 ABG O2 Saturation ABG Glucose Oxyhemoglobin Carboxyhemoglobin Sodium Potassium Chloride BUN 27 H Creatinine 0.5 L D Glucose 200 H POC Glucose 147 H 114 H Ferritin AST ALT Alkaline Phosphatase Lactate Dehydrogenase C-Reactive Protein Total Protein Albumin 3.1 L Arterial Blood Glucose Coronavirus (PCR) SARS-CoV-2 IgG Ab 03/03/20 03/03/20 03/03/20 19:32 19:39 22:44 WBC 20.3 H RBC MCHC Lymph % (Auto) Lymph # (Auto) Seg Neutrophils % Seg Neuts % (Manual) 90.0 H Lymphocytes % (Manual) 4.0 L Seg Neutrophils # Seg Neutrophils # Man 18.3 H Lymphocytes # (Manual) 0.8 L Monocytes # (Manual) 1.2 H D-Dimer ABG pH POC ABG pO2 ABG pO2 ABG O2 Saturation ABG Glucose Oxyhemoglobin Carboxyhemoglobin Sodium Potassium Chloride BUN Creatinine Glucose POC Glucose 186 H 159 H Ferritin AST ALT Alkaline Phosphatase Lactate Dehydrogenase C-Reactive Protein Total Protein Albumin Arterial Blood Glucose Coronavirus (PCR) SARS-CoV-2 IgG Ab 03/04/20 03/04/20 03/04/20 06:06 06:06 07:52 WBC 17.2 H RBC MCHC Lymph % (Auto) Lymph # (Auto) Seg Neutrophils % Seg Neuts % (Manual) 88.0 H Lymphocytes % (Manual) 5.0 L Seg Neutrophils # 15.3 H Seg Neutrophils # Man 15.1 H Lymphocytes # (Manual) 0.9 L Monocytes # (Manual) D-Dimer ABG pH POC ABG pO2 ABG pO2 ABG O2 Saturation ABG Glucose Oxyhemoglobin Carboxyhemoglobin Sodium Potassium Chloride BUN 31 H Creatinine 0.4 L Glucose 144 H POC Glucose 131 H Ferritin AST ALT Alkaline Phosphatase Lactate Dehydrogenase C-Reactive Protein Total Protein Albumin 3.0 L Arterial Blood Glucose Coronavirus (PCR) SARS-CoV-2 IgG Ab 03/04/20 03/04/20 03/04/20 11:30 11:40 16:21 WBC RBC MCHC Lymph % (Auto) Lymph # (Auto) Seg Neutrophils % Seg Neuts % (Manual) Lymphocytes % (Manual) Seg Neutrophils # Seg Neutrophils # Man Lymphocytes # (Manual) Monocytes # (Manual) D-Dimer ABG pH 7.489 H POC ABG pO2 ABG pO2 54.6 L ABG O2 Saturation 90.4 L ABG Glucose Oxyhemoglobin 89.1 L Carboxyhemoglobin Sodium Potassium Chloride BUN Creatinine Glucose POC Glucose 121 H 155 H Ferritin AST ALT Alkaline Phosphatase Lactate Dehydrogenase C-Reactive Protein Total Protein Albumin Arterial Blood Glucose Coronavirus (PCR) SARS-CoV-2 IgG Ab 03/05/20 03/05/20 03/05/20 12:01 16:48 16:48 WBC RBC MCHC Lymph % (Auto) Lymph # (Auto) Seg Neutrophils % Seg Neuts % (Manual) Lymphocytes % (Manual) Seg Neutrophils # Seg Neutrophils # Man Lymphocytes # (Manual) Monocytes # (Manual) D-Dimer 1170.89 H ABG pH POC ABG pO2 ABG pO2 ABG O2 Saturation ABG Glucose Oxyhemoglobin Carboxyhemoglobin Sodium Potassium Chloride BUN Creatinine Glucose POC Glucose 116 H Ferritin 348.4 H AST ALT Alkaline Phosphatase Lactate Dehydrogenase C-Reactive Protein Total Protein Albumin Arterial Blood Glucose Coronavirus (PCR) SARS-CoV-2 IgG Ab 03/05/20 03/05/20 03/06/20 16:48 17:40 09:40 WBC RBC MCHC Lymph % (Auto) Lymph # (Auto) Seg Neutrophils % Seg Neuts % (Manual) Lymphocytes % (Manual) Seg Neutrophils # Seg Neutrophils # Man Lymphocytes # (Manual) Monocytes # (Manual) D-Dimer ABG pH POC ABG pO2 ABG pO2 77.4 L ABG O2 Saturation ABG Glucose Oxyhemoglobin 94.5 L Carboxyhemoglobin Sodium Potassium Chloride BUN Creatinine Glucose POC Glucose 233 H Ferritin AST ALT Alkaline Phosphatase Lactate Dehydrogenase 619 H C-Reactive Protein 3.50 H Total Protein Albumin Arterial Blood Glucose Coronavirus (PCR) SARS-CoV-2 IgG Ab 03/06/20 03/06/20 03/07/20 11:52 17:05 04:22 WBC 16.6 H RBC MCHC Lymph % (Auto) 7.9 L Lymph # (Auto) Seg Neutrophils % 87.5 H Seg Neuts % (Manual) Lymphocytes % (Manual) Seg Neutrophils # 14.5 H Seg Neutrophils # Man Lymphocytes # (Manual) Monocytes # (Manual) D-Dimer ABG pH POC ABG pO2 ABG pO2 ABG O2 Saturation ABG Glucose Oxyhemoglobin Carboxyhemoglobin Sodium Potassium Chloride BUN Creatinine Glucose POC Glucose 168 H 163 H Ferritin AST ALT Alkaline Phosphatase Lactate Dehydrogenase C-Reactive Protein Total Protein Albumin Arterial Blood Glucose Coronavirus (PCR) SARS-CoV-2 IgG Ab 03/07/20 03/07/20 03/07/20 04:22 11:27 16:55 WBC RBC MCHC Lymph % (Auto) Lymph # (Auto) Seg Neutrophils % Seg Neuts % (Manual) Lymphocytes % (Manual) Seg Neutrophils # Seg Neutrophils # Man Lymphocytes # (Manual) Monocytes # (Manual) D-Dimer ABG pH POC ABG pO2 ABG pO2 ABG O2 Saturation ABG Glucose Oxyhemoglobin Carboxyhemoglobin Sodium 134 L Potassium Chloride BUN 27 H Creatinine 0.4 L Glucose 109 H POC Glucose 108 H 140 H Ferritin AST ALT Alkaline Phosphatase Lactate Dehydrogenase C-Reactive Protein Total Protein 6.1 L Albumin 3.1 L Arterial Blood Glucose Coronavirus (PCR) SARS-CoV-2 IgG Ab Chest x-ray: pending Allied health notes reviewed: nursing
[2020-03-09] MEDS: HYDROcodone/HOMATROPINE 5-1.5MG /5 ML ORAL LIQD UNIT DOSE PO PRN ×2 (06:11→22:13)
[2020-03-09] MEDS: FAMOTIDINE 10 MG TAB PO SCH ×2 (09:01→22:13)
[2020-03-09] MEDS: dexAMETHasone 4 MG/ML VIAL IV SCH (09:01)
[2020-03-09] MEDS: ENOXAPARIN 80 MG/0.8 ML INJ SUB-Q SCH ×2 (09:01→22:13)
[2020-03-09] MEDS: ASCORBIC ACID 500 MG TAB PO SCH ×2 (09:01→22:12)
[2020-03-09] MEDS: BENZONATATE 100 MG CAP PO SCH ×2 (09:02→22:13)
[2020-03-09] MEDS: CHOLECALCIFEROL (VIT D3) 5,000 UNIT TAB PO SCH (09:02)
[2020-03-09] MEDS: ACETAMINOPHEN 325 MG TAB PO PRN ×3 (09:19→22:12)
--- NOTE | 2020-03-09 12:12 | Progress Note ---
Assessment and Plan Cultures: Blood culture no growth SARS CoV2 PCR positive SARS Covid 2 IgG positive Assessment: 50 year old female with history of obesity, admitted on 02/24/2020 secondary to 2-week history of feeling sick with dry cough, fever, generalized malaise, shortness of breath, dyspnea on exertion, nausea, vomiting, diarrhea, loss of smell and taste: #Severe sepsis: due to bilateral pneumonia. #Severe COVID pneumonia: Chest x-ray with bilateral patchy infiltrates. Inflammatory markers elevated on admission. Venous ultrasound no DVT. CTA showed no pulmonary embolism, bilateral pneumonia. On steroids, completed Remdesivir. #Acute hypoxemic respiratory failure: remains on oxygen. #Elevated LFTs: from COVID. Resolved #Obesity: Associated with worse outcomes. Recommendations: Complete at least 10 days of steroids, per ICU Completed remdesivir continue supportive care and oxygen weaning ID will sign off. Please call with questions. Moisés Maravilla MD, FACP [facility] ([facility] O: [phone] F: [phone] Subjective Date of service: 03/09/20 Principal diagnosis: COVID-19 infection; Ac hypoxemic resp failure; Severe sepsis; PNA; Obesity Interval history: Afebrile. Remains on HFNC but being weaned., downgraded to IMCU. Objective - Exam Narrative Exam: Physical Exam (reviewed in chart to minimize risk of transmission) Constitutional: deferred Head, Ears, Nose: deferred Eyes: deferred Neck: deferred Oral: deferred Cardiovascular: deferred Respiratory: deferred GI: deferred Musculoskeletal: deferred Skin: deferred Hem/Lymphatic: deferred Psych: deferred Neurological: deferred - Constitutional Vitals: Vital Signs Temp Pulse Resp BP Pulse Ox 97.9 F 93 H 14 98/56 94 03/09/20 08:00 03/09/20 11:15 03/09/20 11:15 03/09/20 11:15 03/09/20 10:45 Temperature -Last 24 Hours Temperature 97.9 F Temperature 97.6 F Temperature 97.5 F Temperature 97.5 F Temperature 97.9 F Temperature 97.9 F - Labs CBC & Chem 7: 03/07/20 04:22 03/07/20 04:22 Labs: Abnormal lab results 03/08/20 03/08/20 Range/Units 17:17 18:37 POC Glucose 145 H 231 H (70-105) mg/dL
--- NOTE | 2020-03-09 23:19 | Progress Note ---
Assessment and Plan atient alert, awake. Having cough. Having mild shortness of breath at rest. Patient is on vapotherm, FIO2 40% and O2 saturation 98%. Patient afebrile. Has leukocytosis. Patients Huyn[place] virus PCR is Positive. Patients chest xray done 02/24/20 reported Patchy bilateral pulmonary opacities are concerning for infection/pneumonia. Atypical/viral etiologies should be considered. Patients inflammatory markers Ferritin 348.4 LDH 619 C reactive protein 3.5 Troponin .01 D Dimer 1170.89 Patient was on REMDESIVIR. Patient presently on Methyl prednisone and S/C Lovenox 80 mg q 12 hours. Patient has CTA of chest 02/29/[address] evidence for pulmonary embolism. Diffuse bilateral airspace disease. The imaging appearance is nonspecific and could be seen in the setting of bacterial pneumonia or atypical/viral etiologies. There is mild mediastinal adenopathy. No associated effusions. Patient has venous doppler studies of legs 02/29/20 reported No sonographic evidence for DVT in either lower extremity. ABG on 100% FIO2. ABG pH 7.463 (7.320-7.450) H 03/01/20 08:53 POC ABG pCO2 40.0 mmHg (32.0-48.0) 03/01/20 08:53 POC ABG pO2 71.9 mmHg (83-108) L 03/01/20 08:53 POC ABG HCO3 28.0 03/01/20 08:53 - Patient Problems (1) Acute hypoxemic respiratory failure Current Visit: Yes Status: Acute Plan to address problem: Patient is on high flow O2, Vapotherm 40% Albuterol inhaler. I/V Methyl prednisone S/C Lovenox (2) Obesity hypoventilation syndrome Current Visit: Yes Status: Acute Plan to address problem: Recommend to loose weight. ABG on 100% FIO2. ABG pH 7.463 (7.320-7.450) H 03/01/20 08:53 POC ABG pCO2 40.0 mmHg (32.0-48.0) 03/01/20 08:53 POC ABG pO2 71.9 mmHg (83-108) L 03/01/20 08:53 POC ABG HCO3 28.0 03/01/20 08:53 ABG results not suggestive of Obesity hypoventilation. Recommend sleep study as out patient. (3) Pneumonia Current Visit: Yes Status: Acute Qualifiers: Laterality: bilateral Plan to address problem: Patient was on REMDESIVIR and Methyl prednisone Antibiotics as per infectious diseases. (4) Suspected 2019-nCoV infection Current Visit: Yes Status: Acute Plan to address problem: Patients Huyn[place] virus PCR is positive. Patient finished course of REMDESIVIR, Patient is Presently on Methyl prednisone and S/C Lovenox. Subjective Date of service: 03/09/20 Principal diagnosis: COVID-19 infection; Ac hypoxemic resp failure; Severe sepsis; PNA; Obesity Interval history: Patient alert, awake. Having cough. Having mild shortness of breath at rest. Patient is on vapotherm, FIO2 40% and O2 saturation 98%. Patient afebrile. Has leukocytosis. Patients Huynh virus PCR is Positive. Patients chest xray done 02/24/20 reported Patchy bilateral pulmonary opacities are concerning for infection/pneumonia. Atypical/viral etiologies should be considered. Patients inflammatory markers Ferritin 348.4 LDH 619 C reactive protein 3.5 Troponin .01 D Dimer 1170.89 Patient was on REMDESIVIR. Patient presently on Methyl prednisone and S/C Lovenox 80 mg q 12 hours. Patient has CTA of chest 02/29/[address] evidence for pulmonary embolism . Diffuse bilateral airspace disease. The imaging appearance is nonspecific and could be seen in the setting of bacterial pneumonia or atypical/viral etiologies. There is mild mediastinal adenopathy. No associated effusions. Patient has venous doppler studies of legs 02/29/20 reported No sonographic evidence for DVT in either lower extremity. ABG on 100% FIO2. ABG pH 7.463 (7.320-7.450) H 03/01/20 08:53 POC ABG pCO2 40.0 mmHg (32.0-48.0) 03/01/20 08:53 POC ABG pO2 71.9 mmHg (83-108) L 03/01/20 08:53 POC ABG HCO3 28.0 03/01/20 08:53 Objective Vital Signs - 12hr 03/09/20 03/09/20 03/09/20 11:31 11:45 12:00 Temperature 97.8 F Pulse Rate 90 90 Respiratory 26 H 15 Rate Blood Pressure 98/56 98/56 O2 Sat by Pulse Oximetry 03/09/20 03/09/20 03/09/20 12:01 12:15 12:31 Temperature Pulse Rate 85 93 H 85 Respiratory 14 15 24 Rate Blood Pressure 98/56 98/56 98/56 O2 Sat by Pulse 99 97 96 Oximetry 03/09/20 03/09/20 03/09/20 12:45 13:01 13:15 Temperature Pulse Rate 91 H Respiratory 14 Rate Blood Pressure 98/56 98/56 98/56 O2 Sat by Pulse 91 99 100 Oximetry 03/09/20 03/09/20 03/09/20 13:31 13:45 14:00 Temperature Pulse Rate Respiratory Rate Blood Pressure 98/56 98/56 111/50 O2 Sat by Pulse 100 98 98 Oximetry 03/09/20 03/09/20 03/09/20 14:15 14:30 14:45 Temperature Pulse Rate 109 H Respiratory 22 24 Rate Blood Pressure 111/50 111/50 111/50 O2 Sat by Pulse 98 95 84 Oximetry 03/09/20 03/09/20 03/09/20 15:01 15:15 15:31 Temperature Pulse Rate 93 H 101 H 98 H Respiratory 24 23 29 H Rate Blood Pressure 111/50 119/60 119/60 O2 Sat by Pulse 100 97 97 Oximetry 03/09/20 03/09/20 03/09/20 15:45 16:00 16:01 Temperature 98.3 F Pulse Rate 94 H 87 Respiratory 30 H 25 H Rate Blood Pressure 119/60 113/40 O2 Sat by Pulse 96 97 Oximetry 03/09/20 03/09/20 03/09/20 16:15 16:22 16:31 Temperature Pulse Rate 91 H 81 Respiratory 13 26 H Rate Blood Pressure 119/60 119/60 O2 Sat by Pulse 99 98 99 Oximetry 03/09/20 03/09/20 03/09/20 16:45 17:01 17:15 Temperature Pulse Rate 87 99 H 100 H Respiratory 20 23 20 Rate Blood Pressure 113/40 113/40 113/40 O2 Sat by Pulse 96 93 94 Oximetry 03/09/20 03/09/20 03/09/20 17:21 17:30 17:31 Temperature Pulse Rate 101 H Respiratory 19 27 H Rate Blood Pressure 113/40 O2 Sat by Pulse 97 98 Oximetry 03/09/20 03/09/20 03/09/20 20:00 20:43 22:12 Temperature 98.4 F Pulse Rate Respiratory 16 Rate Blood Pressure O2 Sat by Pulse 97 Oximetry Constitutional: no acute distress, alert, other (Slight cough.) Eyes: non-icteric ENT: oropharynx moist Neck: supple, no lymphadenopathy, other (+ large neck circumference) Effort: mildly labored Ascultation: Bilateral: rales (bases), rhonchi Percussion: Bilateral: not dull Cardiovascular: regular rate and rhythm Gastrointestinal: normoactive bowel sounds, soft, non-tender, non-distended Integumentary: normal Extremities: no cyanosis, no edema, pink and warm, pulses normal Neurologic: non-focal exam, pupils equal and round, CN II-XII normal, motor strength normal and Psychiatric: mood appropriate, anxious CBC and BMP: 03/07/20 04:22 03/07/20 04:22 ABG, PT/INR, D-dimer: ABG ABG pH 7.439 pH Units (7.350-7.450) 03/06/20 09:40 POC ABG pCO2 40.0 mmHg (32.0-48.0) 03/01/20 08:53 ABG pCO2 36.8 mm Hg 03/06/20 09:40 POC ABG pO2 71.9 mmHg (83-108) L 03/01/20 08:53 ABG pO2 77.4 mm Hg (80.0-90.0) L 03/06/20 09:40 POC ABG HCO3 28.0 03/01/20 08:53 ABG O2 Saturation 96.0 % (95.0-99.0) 03/06/20 09:40 PT/INR, D-dimer D-Dimer 1170.89 ng/mlDDU (0-234) H 03/05/20 16:48 Abnormal lab findings: Abnormal Labs 02/24/20 02/24/20 02/24/20 12:07 12:07 12:07 WBC RBC MCHC 35 H Lymph % (Auto) Lymph # (Auto) Seg Neutrophils % 76.6 H Seg Neuts % (Manual) Lymphocytes % (Manual) Seg Neutrophils # Seg Neutrophils # Man Lymphocytes # (Manual) Monocytes # (Manual) D-Dimer 236.88 H ABG pH POC ABG pO2 ABG pO2 ABG O2 Saturation ABG Glucose Oxyhemoglobin Carboxyhemoglobin Sodium Potassium 3.4 L Chloride BUN Creatinine Glucose POC Glucose Ferritin AST 42 H ALT Alkaline Phosphatase Lactate Dehydrogenase C-Reactive Protein Total Protein Albumin Arterial Blood Glucose Coronavirus (PCR) SARS-CoV-2 IgG Ab 02/24/20 02/24/20 02/25/20 12:07 12:07 05:16 WBC RBC 3.53 L MCHC Lymph % (Auto) Lymph # (Auto) 1.1 L Seg Neutrophils % 75.0 H Seg Neuts % (Manual) Lymphocytes % (Manual) Seg Neutrophils # Seg Neutrophils # Man Lymphocytes # (Manual) Monocytes # (Manual) D-Dimer ABG pH POC ABG pO2 ABG pO2 ABG O2 Saturation ABG Glucose Oxyhemoglobin Carboxyhemoglobin Sodium Potassium Chloride BUN Creatinine Glucose 101 H POC Glucose Ferritin 200.8 H AST ALT Alkaline Phosphatase Lactate Dehydrogenase 315 H C-Reactive Protein 12.00 H Total Protein Albumin Arterial Blood Glucose Coronavirus (PCR) SARS-CoV-2 IgG Ab 02/25/20 02/25/20 02/25/20 05:16 08:21 11:52 WBC RBC MCHC Lymph % (Auto) Lymph # (Auto) Seg Neutrophils % Seg Neuts % (Manual) Lymphocytes % (Manual) Seg Neutrophils # Seg Neutrophils # Man Lymphocytes # (Manual) Monocytes # (Manual) D-Dimer ABG pH POC ABG pO2 ABG pO2 ABG O2 Saturation ABG Glucose Oxyhemoglobin Carboxyhemoglobin Sodium Potassium Chloride 109.8 H BUN Creatinine 0.4 L Glucose 143 H POC Glucose 123 H 133 H Ferritin AST ALT Alkaline Phosphatase Lactate Dehydrogenase C-Reactive Protein Total Protein Albumin Arterial Blood Glucose Coronavirus (PCR) SARS-CoV-2 IgG Ab 02/25/20 02/25/20 02/25/20 14:21 14:21 14:21 WBC RBC MCHC Lymph % (Auto) Lymph # (Auto) Seg Neutrophils % Seg Neuts % (Manual) Lymphocytes % (Manual) Seg Neutrophils # Seg Neutrophils # Man Lymphocytes # (Manual) Monocytes # (Manual) D-Dimer 396.96 H ABG pH POC ABG pO2 ABG pO2 ABG O2 Saturation ABG Glucose Oxyhemoglobin Carboxyhemoglobin Sodium Potassium Chloride BUN Creatinine Glucose 163 H POC Glucose Ferritin 335.1 H AST ALT Alkaline Phosphatase Lactate Dehydrogenase 406 H C-Reactive Protein 6.10 H Total Protein Albumin Arterial Blood Glucose Coronavirus (PCR) SARS-CoV-2 IgG Ab 02/25/20 02/25/20 02/26/20 16:17 22:45 07:55 WBC RBC MCHC Lymph % (Auto) Lymph # (Auto) Seg Neutrophils % Seg Neuts % (Manual) Lymphocytes % (Manual) Seg Neutrophils # Seg Neutrophils # Man Lymphocytes # (Manual) Monocytes # (Manual) D-Dimer ABG pH POC ABG pO2 ABG pO2 ABG O2 Saturation ABG Glucose Oxyhemoglobin Carboxyhemoglobin Sodium Potassium Chloride BUN Creatinine Glucose POC Glucose 124 H 154 H 124 H Ferritin AST ALT Alkaline Phosphatase Lactate Dehydrogenase C-Reactive Protein Total Protein Albumin Arterial Blood Glucose Coronavirus (PCR) SARS-CoV-2 IgG Ab 02/26/20 02/26/20 02/26/20 10:45 12:10 16:51 WBC RBC MCHC Lymph % (Auto) Lymph # (Auto) Seg Neutrophils % Seg Neuts % (Manual) Lymphocytes % (Manual) Seg Neutrophils # Seg Neutrophils # Man Lymphocytes # (Manual) Monocytes # (Manual) D-Dimer ABG pH POC ABG pO2 ABG pO2 ABG O2 Saturation ABG Glucose Oxyhemoglobin Carboxyhemoglobin Sodium Potassium Chloride BUN Creatinine Glucose POC Glucose 121 H 129 H Ferritin AST ALT Alkaline Phosphatase Lactate Dehydrogenase C-Reactive Protein Total Protein Albumin Arterial Blood Glucose Coronavirus (PCR) Positive A SARS-CoV-2 IgG Ab 02/26/20 02/27/20 02/27/20 22:00 07:58 12:04 WBC RBC MCHC Lymph % (Auto) Lymph # (Auto) Seg Neutrophils % Seg Neuts % (Manual) Lymphocytes % (Manual) Seg Neutrophils # Seg Neutrophils # Man Lymphocytes # (Manual) Monocytes # (Manual) D-Dimer ABG pH POC ABG pO2 ABG pO2 ABG O2 Saturation ABG Glucose Oxyhemoglobin Carboxyhemoglobin Sodium Potassium Chloride BUN Creatinine Glucose POC Glucose 134 H 115 H 146 H Ferritin AST ALT Alkaline Phosphatase Lactate Dehydrogenase C-Reactive Protein Total Protein Albumin Arterial Blood Glucose Coronavirus (PCR) SARS-CoV-2 IgG Ab 02/27/20 02/28/20 02/28/20 17:21 16:03 16:03 WBC RBC MCHC Lymph % (Auto) Lymph # (Auto) Seg Neutrophils % Seg Neuts % (Manual) Lymphocytes % (Manual) Seg Neutrophils # Seg Neutrophils # Man Lymphocytes # (Manual) Monocytes # (Manual) D-Dimer 995.51 H ABG pH POC ABG pO2 ABG pO2 ABG O2 Saturation ABG Glucose Oxyhemoglobin Carboxyhemoglobin Sodium Potassium Chloride BUN Creatinine Glucose POC Glucose 136 H Ferritin 464.3 H AST ALT Alkaline Phosphatase Lactate Dehydrogenase C-Reactive Protein Total Protein Albumin Arterial Blood Glucose Coronavirus (PCR) SARS-CoV-2 IgG Ab 02/28/20 02/28/20 02/28/20 16:03 16:03 16:03 WBC RBC MCHC Lymph % (Auto) Lymph # (Auto) Seg Neutrophils % Seg Neuts % (Manual) Lymphocytes % (Manual) Seg Neutrophils # Seg Neutrophils # Man Lymphocytes # (Manual) Monocytes # (Manual) D-Dimer ABG pH POC ABG pO2 ABG pO2 ABG O2 Saturation ABG Glucose Oxyhemoglobin Carboxyhemoglobin Sodium Potassium Chloride BUN 23 H Creatinine 0.4 L Glucose 120 H POC Glucose Ferritin AST 72 H ALT 117 H Alkaline Phosphatase 137 H Lactate Dehydrogenase 779 H C-Reactive Protein 6.10 H Total Protein Albumin 3.0 L Arterial Blood Glucose Coronavirus (PCR) SARS-CoV-2 IgG Ab Reactive A 02/28/20 02/29/20 02/29/20 22:06 07:38 11:11 WBC RBC MCHC Lymph % (Auto) Lymph # (Auto) Seg Neutrophils % Seg Neuts % (Manual) Lymphocytes % (Manual) Seg Neutrophils # Seg Neutrophils # Man Lymphocytes # (Manual) Monocytes # (Manual) D-Dimer ABG pH POC ABG pO2 ABG pO2 ABG O2 Saturation ABG Glucose Oxyhemoglobin Carboxyhemoglobin Sodium Potassium Chloride BUN Creatinine Glucose POC Glucose 119 H 121 H 129 H Ferritin AST ALT Alkaline Phosphatase Lactate Dehydrogenase C-Reactive Protein Total Protein Albumin Arterial Blood Glucose Coronavirus (PCR) SARS-CoV-2 IgG Ab 02/29/20 02/29/20 03/01/20 15:58 22:02 05:23 WBC RBC MCHC Lymph % (Auto) Lymph # (Auto) Seg Neutrophils % Seg Neuts % (Manual) Lymphocytes % (Manual) Seg Neutrophils # Seg Neutrophils # Man Lymphocytes # (Manual) Monocytes # (Manual) D-Dimer 1841.84 H ABG pH POC ABG pO2 ABG pO2 ABG O2 Saturation ABG Glucose Oxyhemoglobin Carboxyhemoglobin Sodium Potassium Chloride BUN Creatinine Glucose POC Glucose 118 H 141 H Ferritin AST ALT Alkaline Phosphatase Lactate Dehydrogenase C-Reactive Protein Total Protein Albumin Arterial Blood Glucose Coronavirus (PCR) SARS-CoV-2 IgG Ab 03/01/20 03/01/20 03/01/20 05:23 05:23 05:23 WBC 17.6 H RBC MCHC Lymph % (Auto) Lymph # (Auto) Seg Neutrophils % Seg Neuts % (Manual) 96.0 H Lymphocytes % (Manual) 2.0 L Seg Neutrophils # Seg Neutrophils # Man 16.9 H Lymphocytes # (Manual) 0.4 L Monocytes # (Manual) D-Dimer ABG pH POC ABG pO2 ABG pO2 ABG O2 Saturation ABG Glucose Oxyhemoglobin Carboxyhemoglobin Sodium Potassium Chloride BUN 19 H Creatinine 0.3 L Glucose 145 H POC Glucose Ferritin 323.9 H AST ALT 63 H Alkaline Phosphatase 132 H Lactate Dehydrogenase 746 H C-Reactive Protein 6.80 H Total Protein Albumin 2.9 L Arterial Blood Glucose Coronavirus (PCR) SARS-CoV-2 IgG Ab 03/01/20 03/01/20 03/01/20 06:30 08:53 11:07 WBC RBC MCHC Lymph % (Auto) Lymph # (Auto) Seg Neutrophils % Seg Neuts % (Manual) Lymphocytes % (Manual) Seg Neutrophils # Seg Neutrophils # Man Lymphocytes # (Manual) Monocytes # (Manual) D-Dimer ABG pH 7.463 H POC ABG pO2 71.9 L ABG pO2 ABG O2 Saturation ABG Glucose 147 H Oxyhemoglobin Carboxyhemoglobin 0.2 L Sodium Potassium Chloride BUN Creatinine Glucose POC Glucose 132 H 126 H Ferritin AST ALT Alkaline Phosphatase Lactate Dehydrogenase C-Reactive Protein Total Protein Albumin Arterial Blood Glucose 147 H Coronavirus (PCR) SARS-CoV-2 IgG Ab 03/01/20 03/01/20 03/02/20 15:50 21:24 08:08 WBC RBC MCHC Lymph % (Auto) Lymph # (Auto) Seg Neutrophils % Seg Neuts % (Manual) Lymphocytes % (Manual) Seg Neutrophils # Seg Neutrophils # Man Lymphocytes # (Manual) Monocytes # (Manual) D-Dimer ABG pH POC ABG pO2 ABG pO2 ABG O2 Saturation ABG Glucose Oxyhemoglobin Carboxyhemoglobin Sodium Potassium Chloride BUN Creatinine Glucose POC Glucose 122 H 142 H 152 H Ferritin AST ALT Alkaline Phosphatase Lactate Dehydrogenase C-Reactive Protein Total Protein Albumin Arterial Blood Glucose Coronavirus (PCR) SARS-CoV-2 IgG Ab 03/02/20 03/02/20 03/02/20 11:41 16:51 21:56 WBC RBC MCHC Lymph % (Auto) Lymph # (Auto) Seg Neutrophils % Seg Neuts % (Manual) Lymphocytes % (Manual) Seg Neutrophils # Seg Neutrophils # Man Lymphocytes # (Manual) Monocytes # (Manual) D-Dimer ABG pH POC ABG pO2 ABG pO2 ABG O2 Saturation ABG Glucose Oxyhemoglobin Carboxyhemoglobin Sodium Potassium Chloride BUN Creatinine Glucose POC Glucose 136 H 137 H 126 H Ferritin AST ALT Alkaline Phosphatase Lactate Dehydrogenase C-Reactive Protein Total Protein Albumin Arterial Blood Glucose Coronavirus (PCR) SARS-CoV-2 IgG Ab 03/03/20 03/03/20 03/03/20 08:05 13:10 19:32 WBC RBC MCHC Lymph % (Auto) Lymph # (Auto) Seg Neutrophils % Seg Neuts % (Manual) Lymphocytes % (Manual) Seg Neutrophils # Seg Neutrophils # Man Lymphocytes # (Manual) Monocytes # (Manual) D-Dimer ABG pH POC ABG pO2 ABG pO2 ABG O2 Saturation ABG Glucose Oxyhemoglobin Carboxyhemoglobin Sodium Potassium Chloride BUN 27 H Creatinine 0.5 L D Glucose 200 H POC Glucose 147 H 114 H Ferritin AST ALT Alkaline Phosphatase Lactate Dehydrogenase C-Reactive Protein Total Protein Albumin 3.1 L Arterial Blood Glucose Coronavirus (PCR) SARS-CoV-2 IgG Ab 03/03/20 03/03/20 03/03/20 19:32 19:39 22:44 WBC 20.3 H RBC MCHC Lymph % (Auto) Lymph # (Auto) Seg Neutrophils % Seg Neuts % (Manual) 90.0 H Lymphocytes % (Manual) 4.0 L Seg Neutrophils # Seg Neutrophils # Man 18.3 H Lymphocytes # (Manual) 0.8 L Monocytes # (Manual) 1.2 H D-Dimer ABG pH POC ABG pO2 ABG pO2 ABG O2 Saturation ABG Glucose Oxyhemoglobin Carboxyhemoglobin Sodium Potassium Chloride BUN Creatinine Glucose POC Glucose 186 H 159 H Ferritin AST ALT Alkaline Phosphatase Lactate Dehydrogenase C-Reactive Protein Total Protein Albumin Arterial Blood Glucose Coronavirus (PCR) SARS-CoV-2 IgG Ab 03/04/20 03/04/20 03/04/20 06:06 06:06 07:52 WBC 17.2 H RBC MCHC Lymph % (Auto) Lymph # (Auto) Seg Neutrophils % Seg Neuts % (Manual) 88.0 H Lymphocytes % (Manual) 5.0 L Seg Neutrophils # 15.3 H Seg Neutrophils # Man 15.1 H Lymphocytes # (Manual) 0.9 L Monocytes # (Manual) D-Dimer ABG pH POC ABG pO2 ABG pO2 ABG O2 Saturation ABG Glucose Oxyhemoglobin Carboxyhemoglobin Sodium Potassium Chloride BUN 31 H Creatinine 0.4 L Glucose 144 H POC Glucose 131 H Ferritin AST ALT Alkaline Phosphatase Lactate Dehydrogenase C-Reactive Protein Total Protein Albumin 3.0 L Arterial Blood Glucose Coronavirus (PCR) SARS-CoV-2 IgG Ab 03/04/20 03/04/20 03/04/20 11:30 11:40 16:21 WBC RBC MCHC Lymph % (Auto) Lymph # (Auto) Seg Neutrophils % Seg Neuts % (Manual) Lymphocytes % (Manual) Seg Neutrophils # Seg Neutrophils # Man Lymphocytes # (Manual) Monocytes # (Manual) D-Dimer ABG pH 7.489 H POC ABG pO2 ABG pO2 54.6 L ABG O2 Saturation 90.4 L ABG Glucose Oxyhemoglobin 89.1 L Carboxyhemoglobin Sodium Potassium Chloride BUN Creatinine Glucose POC Glucose 121 H 155 H Ferritin AST ALT Alkaline Phosphatase Lactate Dehydrogenase C-Reactive Protein Total Protein Albumin Arterial Blood Glucose Coronavirus (PCR) SARS-CoV-2 IgG Ab 03/05/20 03/05/20 03/05/20 12:01 16:48 16:48 WBC RBC MCHC Lymph % (Auto) Lymph # (Auto) Seg Neutrophils % Seg Neuts % (Manual) Lymphocytes % (Manual) Seg Neutrophils # Seg Neutrophils # Man Lymphocytes # (Manual) Monocytes # (Manual) D-Dimer 1170.89 H ABG pH POC ABG pO2 ABG pO2 ABG O2 Saturation ABG Glucose Oxyhemoglobin Carboxyhemoglobin Sodium Potassium Chloride BUN Creatinine Glucose POC Glucose 116 H Ferritin 348.4 H AST ALT Alkaline Phosphatase Lactate Dehydrogenase C-Reactive Protein Total Protein Albumin Arterial Blood Glucose Coronavirus (PCR) SARS-CoV-2 IgG Ab 03/05/20 03/05/20 03/06/20 16:48 17:40 09:40 WBC RBC MCHC Lymph % (Auto) Lymph # (Auto) Seg Neutrophils % Seg Neuts % (Manual) Lymphocytes % (Manual) Seg Neutrophils # Seg Neutrophils # Man Lymphocytes # (Manual) Monocytes # (Manual) D-Dimer ABG pH POC ABG pO2 ABG pO2 77.4 L ABG O2 Saturation ABG Glucose Oxyhemoglobin 94.5 L Carboxyhemoglobin Sodium Potassium Chloride BUN Creatinine Glucose POC Glucose 233 H Ferritin AST ALT Alkaline Phosphatase Lactate Dehydrogenase 619 H C-Reactive Protein 3.50 H Total Protein Albumin Arterial Blood Glucose Coronavirus (PCR) SARS-CoV-2 IgG Ab 03/06/20 03/06/20 03/07/20 11:52 17:05 04:22 WBC 16.6 H RBC MCHC Lymph % (Auto) 7.9 L Lymph # (Auto) Seg Neutrophils % 87.5 H Seg Neuts % (Manual) Lymphocytes % (Manual) Seg Neutrophils # 14.5 H Seg Neutrophils # Man Lymphocytes # (Manual) Monocytes # (Manual) D-Dimer ABG pH POC ABG pO2 ABG pO2 ABG O2 Saturation ABG Glucose Oxyhemoglobin Carboxyhemoglobin Sodium Potassium Chloride BUN Creatinine Glucose POC Glucose 168 H 163 H Ferritin AST ALT Alkaline Phosphatase Lactate Dehydrogenase C-Reactive Protein Total Protein Albumin Arterial Blood Glucose Coronavirus (PCR) SARS-CoV-2 IgG Ab 03/07/20 03/07/20 03/07/20 04:22 11:27 16:55 WBC RBC MCHC Lymph % (Auto) Lymph # (Auto) Seg Neutrophils % Seg Neuts % (Manual) Lymphocytes % (Manual) Seg Neutrophils # Seg Neutrophils # Man Lymphocytes # (Manual) Monocytes # (Manual) D-Dimer ABG pH POC ABG pO2 ABG pO2 ABG O2 Saturation ABG Glucose Oxyhemoglobin Carboxyhemoglobin Sodium 134 L Potassium Chloride BUN 27 H Creatinine 0.4 L Glucose 109 H POC Glucose 108 H 140 H Ferritin AST ALT Alkaline Phosphatase Lactate Dehydrogenase C-Reactive Protein Total Protein 6.1 L Albumin 3.1 L Arterial Blood Glucose Coronavirus (PCR) SARS-CoV-2 IgG Ab 03/08/20 03/08/20 03/09/20 17:17 18:37 12:10 WBC RBC MCHC Lymph % (Auto) Lymph # (Auto) Seg Neutrophils % Seg Neuts % (Manual) Lymphocytes % (Manual) Seg Neutrophils # Seg Neutrophils # Man Lymphocytes # (Manual) Monocytes # (Manual) D-Dimer ABG pH POC ABG pO2 ABG pO2 ABG O2 Saturation ABG Glucose Oxyhemoglobin Carboxyhemoglobin Sodium Potassium Chloride BUN Creatinine Glucose POC Glucose 145 H 231 H 115 H Ferritin AST ALT Alkaline Phosphatase Lactate Dehydrogenase C-Reactive Protein Total Protein Albumin Arterial Blood Glucose Coronavirus (PCR) SARS-CoV-2 IgG Ab Allied health notes reviewed: nursing
[2020-03-10] MEDS: dexAMETHasone 4 MG/ML VIAL IV SCH (09:21)
[2020-03-10] MEDS: ASCORBIC ACID 500 MG TAB PO SCH ×2 (09:21→22:06)
[2020-03-10] MEDS: traMADol 50 MG TAB PO PRN ×2 (09:22→22:06)
[2020-03-10] MEDS: FAMOTIDINE 10 MG TAB PO SCH ×2 (09:22→22:06)
[2020-03-10] MEDS: BENZONATATE 100 MG CAP PO SCH ×2 (09:22→22:06)
[2020-03-10] MEDS: ENOXAPARIN 80 MG/0.8 ML INJ SUB-Q SCH ×2 (09:23→22:08)
[2020-03-10] MEDS: HYDROcodone/HOMATROPINE 5-1.5MG /5 ML ORAL LIQD UNIT DOSE PO PRN ×2 (09:33→22:06)
--- NOTE | 2020-03-10 09:50 | Progress Note ---
Assessment and Plan Critical care statement The high probability OF a clinically significant sudden or life-threatening deterioration of the cardiorespiratory system and endocrine system required my full and direct attention, intervention and postoperative management. The aggregate critical care time was 32 minutes. The time is in addition to time spent performing reported procedures but includes the followin: Data review and interpretation 2: Patient assessment and monitoring of vital signs 3: Documentation 4:: Medication orders and management Assessment and Plan - Patient Problems (1) Acute hypoxemic respiratory failure Current Visit: Yes Status: Acute Plan to address problem: Patient on 40 L high flow oxygen Worsening clinical picture Patient may need intubation Patient to transfer to ICU Dr. Love discussed the case with me Patient transferred to ICU Patient on high flow oxygen Trying to avoid intubation (2) Covid pneumonia Current Visit: Yes Status: Acute Plan to address problem: Patient is coronavirus PCR positive on 02/26/2020 Patient is also SARS-CoV-2 IgG positive Patient is not a candidate for Covid convalescent plasma Steroids Continue remdesivir for 5 days-today is day 5 of day 5 Continue anticoagulation Prone positioning as possible High flow oxygen per ID Complete at least 10 days of steroids, per ICU Completed remdesivir continue supportive care and oxygen weaning (3) Pneumonia Current Visit: Yes Status: Acute Qualifiers: Laterality: bilateral Plan to address problem: Pneumonia protocol: Chest x-ray, CBC, CMP, supplemental oxygen, nebulizer therapy, pulse oximetry, IV antibiotic therapy, pulmonary toilet, blood culture. (4) severe sepsis Remains hypoxic likely due to bilateral pneumonia Continue IV antibiotics (5) DVT prophylaxis Current Visit: Yes Status: Acute Plan to address problem: High-dose Lovenox Subjective Date of service: 03/08/20 Principal diagnosis: COVID-19 infection; Ac hypoxemic resp failure; Severe sepsis; PNA; Obesity Interval history: 50 YO Female with Obesity Hypoventilation Syndrome presents to ED for evaluation. Patient states that she has "been feeling sick" for the past 2 weeks with persistent symptoms over the same timeframe. Patient was seen and evaluated by her primary care physician and treated with oral antibiotics for outpatient pneumonia. Patient states that she has experienced persistent symptoms in spite of of compliance with medication. Patient reports fever, dry cough, shortness of breath, decreased exercise tolerance, nausea, multiple episodes of vomiting, multiple loose stools, loss of sense of smell, loss of sense of taste, fatigue, malaise, body aches. Patient transported to [facility] via private vehicle for further care and evaluation of the aforementioned symptoms. Patient seen and evaluated in the emergency department. All lab and imaging studies reviewed. Patient found to have a fever to 102.1 F, as well as a pulse oximetry of 88% with exertion on room air which is consistent with acute hypoxemic respiratory failure. Patient underwent chest x-ray which revealed bilateral pneumonia. Patient admitted to medical floor and initiated on pneumonia protocol as well as coronavirus protocol. Coronavirus PCR ordered in the emergency department and is pending at time of admission. Patient acknowledges fever, but denies chest pain, palpitation, skin rash, recent ill contacts, trauma, or known exposure to COVID-19. No medication listed at time of admission. No prior admission for review. 02/29/2020 Patient alert, awake. Having cough. Having mild shortness of breath at rest. Patient is on vapotherm, FIO2 100% and O2 saturation 90%. Patient switched to BIPAP. But patient not using it.Patient afebrile. No leukocytosis. Complaining headache at times.Patients [place] virus PCR is Positive. Patients chest xray done 02/24/20 reported Patchy bilateral pulmonary opacities are concerning for infection/pneumonia. 03/01/2020 03/01/2020 Patient on high flow oxygen and BiPAP 03/02/2020 Patient still on high flow oxygen and BiPAP 03/03/2020 Patient with worsening inflammatory markers Chest x-ray worsening with extensive consolidations Patient will be transferred to ICU 03/04/2020 Patient on high flow oxygen-40 L Worsening pulmonary alveolar infiltrates Possible intubation !05/07/19 On High flow oxygen 03/07/2020 Patient still on high flow oxygen Not intubated 03/08- on HFNC Objective - Constitutional Vitals: Vital Signs - 12hr 03/09/20 03/09/20 03/09/20 22:00 22:12 22:31 Temperature Pulse Rate 96 H Respiratory 16 26 H Rate Respiratory 20 Rate [Chest] Blood Pressure 95/59 95/59 O2 Sat by Pulse 96 97 Oximetry 03/09/20 03/09/20 03/09/20 23:01 23:12 23:27 Temperature Pulse Rate 71 72 Respiratory 24 20 28 H Rate Respiratory Rate [Chest] Blood Pressure 95/59 108/57 O2 Sat by Pulse 99 97 Oximetry 1203/09/20 03/10/20 23:41 23:53 00:00 Temperature 98.2 F Pulse Rate 80 78 Respiratory 19 21 Rate Respiratory Rate [Chest] Blood Pressure 105/61 O2 Sat by Pulse 92 96 Oximetry 03/10/20 03/10/20 03/10/20 00:28 01:01 02:00 Temperature Pulse Rate 71 82 71 Respiratory 23 25 H Rate Respiratory Rate [Chest] Blood Pressure 105/61 105/53 O2 Sat by Pulse 95 99 Oximetry 03/10/20 03/10/20 03/10/20 03:00 03:37 04:00 Temperature 98.4 F Pulse Rate 75 90 Respiratory 21 25 H Rate Respiratory Rate [Chest] Blood Pressure 118/65 106/73 O2 Sat by Pulse 96 95 Oximetry 03/10/20 03/10/20 03/10/20 04:46 05:00 06:00 Temperature Pulse Rate 73 91 H 73 Respiratory 28 H 29 H Rate Respiratory Rate [Chest] Blood Pressure 107/63 120/63 O2 Sat by Pulse 89 96 Oximetry 03/10/20 03/10/20 03/10/20 06:20 07:00 08:00 Temperature 98.4 F Pulse Rate 79 83 Respiratory 23 30 H Rate Respiratory Rate [Chest] Blood Pressure 108/64 104/42 O2 Sat by Pulse 97 96 96 Oximetry 03/10/20 08:01 Temperature Pulse Rate Respiratory Rate Respiratory Rate [Chest] Blood Pressure O2 Sat by Pulse 95 Oximetry General appearance: Present: mild distress, well-nourished - EENT Eyes: PERRL, EOM intact ENT: hearing intact, clear oral mucosa Ears: bilateral: normal - Neck Neck: supple, normal ROM - Respiratory Respiratory effort: normal Respiratory: bilateral: CTA, rhonchi - Breasts Breasts: normal - Cardiovascular Heart rate: 78 Rhythm: regular Heart Sounds: Present: S1 & S2. Absent: gallop, rub Extremities: pulses intact, No edema, normal color, Full ROM - Gastrointestinal General gastrointestinal: Present: soft, non-tender, non-distended, normal bowel sounds - Genitourinary Female genitourinary: normal - Integumentary Integumentary: clear, warm, dry - Musculoskeletal Musculoskeletal: 1, strength equal bilaterally - Neurologic Neurologic: moves all extremities - Psychiatric Psychiatric: memory intact, appropriate mood/affect, intact judgment & insight - Labs CBC & Chem 7: 03/07/20 04:22 03/07/20 04:22 Labs: Abnormal lab results 03/09/20 Range/Units 12:10 POC Glucose 115 H (70-105) mg/dL HEART Score - HEART Score Troponin: Troponin T < 0.010 ng/mL (0.00-0.029) 02/28/20 16:03
[2020-03-10] MEDS: CHOLECALCIFEROL (VIT D3) 5,000 UNIT TAB PO SCH (10:45)
--- NOTE | 2020-03-10 12:52 | Progress Note ---
Assessment and Plan Patient alert, awake. Having cough. Having mild shortness of breath at rest. Patient is on vapotherm, FIO2 30% and O2 saturation 97%. Patient afebrile. Has leukocytosis. Patients Huyn[place] virus PCR is Positive. Patients chest xray done reported Patchy bilateral pulmonary opacities are concerning for infection/pneumonia. Atypical/viral etiologies should be considered. Patients inflammatory markers Ferritin 319.4 LDH 619 C reactive protein .3 Troponin .01 D Dimer 1170.89 Patient was on REMDESIVIR.Finished course of REMDESIVIR. Patient presently on Methyl prednisone and S/C Lovenox 80 mg q 12 hours. Patient has CTA of chest 02/29/[address] evidence for pulmonary embolism. Diffuse bilateral airspace disease. The imaging appearance is nonspecific and could be seen in the setting of bacterial pneumonia or atypical/viral etiologies. There is mild mediastinal adenopathy. No associated effusions. Patient has venous doppler studies of legs 02/29/20 reported No sonographic evidence for DVT in either lower extremity. ABG on 100% FIO2. ABG pH 7.463 (7.320-7.450) H 03/01/20 08:53 POC ABG pCO2 40.0 mmHg (32.0-48.0) 03/01/20 08:53 POC ABG pO2 71.9 mmHg (83-108) L 03/01/20 08:53 POC ABG HCO3 28.0 03/01/20 08:53 - Patient Problems (1) Acute hypoxemic respiratory failure Current Visit: Yes Status: Acute Plan to address problem: Patient is on high flow O2, Vapotherm 30% Albuterol inhaler. I/V Methyl prednisone S/C Lovenox (2) Obesity hypoventilation syndrome Current Visit: Yes Status: Acute Plan to address problem: Recommend to loose weight. ABG on 100% FIO2. ABG pH 7.463 (7.320-7.450) H 03/01/20 08:53 POC ABG pCO2 40.0 mmHg (32.0-48.0) 03/01/20 08:53 POC ABG pO2 71.9 mmHg (83-108) L 03/01/20 08:53 POC ABG HCO3 28.0 03/01/20 08:53 ABG results not suggestive of Obesity hypoventilation. Recommend sleep study as out patient. (3) Pneumonia Current Visit: Yes Status: Acute Qualifiers: Laterality: bilateral Plan to address problem: Patient was on REMDESIVIR and Methyl prednisone Antibiotics as per infectious diseases. (4) Suspected 2019-nCoV infection Current Visit: Yes Status: Acute Plan to address problem: Patients Hu[place] virus PCR is positive. Patient finished course of REMDESIVIR, Patient is Presently on Methyl prednisone and S/C Lovenox. Subjective Date of service: 03/10/20 Principal diagnosis: COVID-19 infection; Ac hypoxemic resp failure; Severe se psis; PNA; Obesity Interval history: Patient alert, awake. Having cough. Having mild shortness of breath at rest. Patient is on vapotherm, FIO2 30% and O2 saturation 97%. Patient afebrile. Has leukocytosis. Patients Huynh virus PCR is Positive. Patients chest xray done 02/24/20 reported Patchy bilateral pulmonary opacities are concerning for infection/pneumonia. Atypical/viral etiologies should be considered. Patients inflammatory markers Ferritin 319.4 LDH 619 C reactive protein .3 Troponin .01 D Dimer 1170.89 Patient was on REMDESIVIR.Finished course of REMDESIVIR. Patient presently on Methyl prednisone and S/C Lovenox 80 mg q 12 hours. Patient has CTA of chest 02/29/[address] evidence for pulmonary embolism. Diffuse bilateral airspace disease. The imaging appearance is nonspecific and could be seen in the setting of bacterial pneumonia or atypical/viral etiologies. There is mild mediastinal adenopathy. No associated effusions. Patient has venous doppler studies of legs 02/29/20 reported No sonographic evidence for DVT in either lower extremity. ABG on 100% FIO2. ABG pH 7.463 (7.320-7.450) H 03/01/20 08:53 POC ABG pCO2 40.0 mmHg (32.0-48.0) 03/01/20 08:53 POC ABG pO2 71.9 mmHg (83-108) L 03/01/20 08:53 POC ABG HCO3 28.0 03/01/20 08:53 Objective Vital Signs - 12hr 03/10/20 03/10/20 03/10/20 01:01 02:00 03:00 Temperature Pulse Rate 82 71 75 Respiratory 23 25 H 21 Rate Respiratory Rate [Chest] Blood Pressure 105/61 105/53 118/65 O2 Sat by Pulse 95 99 96 Oximetry 03/10/20 03/10/20 03/10/20 03:37 04:00 04:46 Temperature 98.4 F Pulse Rate 90 73 Respiratory 25 H Rate Respiratory Rate [Chest] Blood Pressure 106/73 O2 Sat by Pulse 95 Oximetry 03/10/20 03/10/20 03/10/20 05:00 06:00 06:20 Temperature Pulse Rate 91 H 73 Respiratory 28 H 29 H Rate Respiratory Rate [Chest] Blood Pressure 107/63 120/63 O2 Sat by Pulse 89 96 97 Oximetry 03/10/20 03/10/20 03/10/20 07:00 08:00 08:01 Temperature 98.4 F Pulse Rate 79 83 Respiratory 23 30 H Rate Respiratory Rate [Chest] Blood Pressure 108/64 104/42 O2 Sat by Pulse 96 96 95 Oximetry 03/10/20 03/10/20 03/10/20 09:00 10:00 11:01 Temperature Pulse Rate 99 H 96 H 112 H Respiratory 26 H 33 H 11 L Rate Respiratory 11 L Rate [Chest] Blood Pressure 102/56 106/55 106/55 O2 Sat by Pulse 93 95 94 Oximetry 03/10/20 12:00 Temperature 98.6 F Pulse Rate 79 Respiratory 26 H Rate Respiratory Rate [Chest] Blood Pressure 106/52 O2 Sat by Pulse 94 Oximetry Constitutional: no acute distress, alert, other (Slight cough.) Eyes: non-icteric ENT: oropharynx moist Neck: supple, no lymphadenopathy, other (+ large neck circumference) Effort: mildly labored Ascultation: Bilateral: rales (bases), rhonchi Percussion: Bilateral: not dull Cardiovascular: regular rate and rhythm Gastrointestinal: normoactive bowel sounds, soft, non-tender, non-distended Integumentary: normal Extremities: no cyanosis, no edema, pink and warm, pulses normal Neurologic: non-focal exam, pupils equal and round, CN II-XII normal, motor strength normal and Psychiatric: mood appropriate, anxious CBC and BMP: 03/07/20 04:22 03/07/20 04:22 ABG, PT/INR, D-dimer: ABG ABG pH 7.439 pH Units (7.350-7.450) 03/06/20 09:40 POC ABG pCO2 40.0 mmHg (32.0-48.0) 03/01/20 08:53 ABG pCO2 36.8 mm Hg 03/06/20 09:40 POC ABG pO2 71.9 mmHg (83-108) L 03/01/20 08:53 ABG pO2 77.4 mm Hg (80.0-90.0) L 03/06/20 09:40 POC ABG HCO3 28.0 03/01/20 08:53 ABG O2 Saturation 96.0 % (95.0-99.0) 03/06/20 09:40 PT/INR, D-dimer D-Dimer 1170.89 ng/mlDDU (0-234) H 03/05/20 16:48 Abnormal lab findings: Abnormal Labs 02/24/20 02/24/20 02/24/20 12:07 12:07 12:07 WBC RBC MCHC 35 H Lymph % (Auto) Lymph # (Auto) Seg Neutrophils % 76.6 H Seg Neuts % (Manual) Lymphocytes % (Manual) Seg Neutrophils # Seg Neutrophils # Man Lymphocytes # (Manual) Monocytes # (Manual) D-Dimer 236.88 H ABG pH POC ABG pO2 ABG pO2 ABG O2 Saturation ABG Glucose Oxyhemoglobin Carboxyhemoglobin Sodium Potassium 3.4 L Chloride BUN Creatinine Glucose POC Glucose Ferritin AST 42 H ALT Alkaline Phosphatase Lactate Dehydrogenase C-Reactive Protein Total Protein Albumin Arterial Blood Glucose Coronavirus (PCR) SARS-CoV-2 IgG Ab 02/24/20 02/24/20 02/25/20 12:07 12:07 05:16 WBC RBC 3.53 L MCHC Lymph % (Auto) Lymph # (Auto) 1.1 L Seg Neutrophils % 75.0 H Seg Neuts % (Manual) Lymphocytes % (Manual) Seg Neutrophils # Seg Neutrophils # Man Lymphocytes # (Manual) Monocytes # (Manual) D-Dimer ABG pH POC ABG pO2 ABG pO2 ABG O2 Saturation ABG Glucose Oxyhemoglobin Carboxyhemoglobin Sodium Potassium Chloride BUN Creatinine Glucose 101 H POC Glucose Ferritin 200.8 H AST ALT Alkaline Phosphatase Lactate Dehydrogenase 315 H C-Reactive Protein 12.00 H Total Protein Albumin Arterial Blood Glucose Coronavirus (PCR) SARS-CoV-2 IgG Ab 02/25/20 02/25/20 02/25/20 05:16 08:21 11:52 WBC RBC MCHC Lymph % (Auto) Lymph # (Auto) Seg Neutrophils % Seg Neuts % (Manual) Lymphocytes % (Manual) Seg Neutrophils # Seg Neutrophils # Man Lymphocytes # (Manual) Monocytes # (Manual) D-Dimer ABG pH POC ABG pO2 ABG pO2 ABG O2 Saturation ABG Glucose Oxyhemoglobin Carboxyhemoglobin Sodium Potassium Chloride 109.8 H BUN Creatinine 0.4 L Glucose 143 H POC Glucose 123 H 133 H Ferritin AST ALT Alkaline Phosphatase Lactate Dehydrogenase C-Reactive Protein Total Protein Albumin Arterial Blood Glucose Coronavirus (PCR) SARS-CoV-2 IgG Ab 02/25/20 02/25/20 02/25/20 14:21 14:21 14:21 WBC RBC MCHC Lymph % (Auto) Lymph # (Auto) Seg Neutrophils % Seg Neuts % (Manual) Lymphocytes % (Manual) Seg Neutrophils # Seg Neutrophils # Man Lymphocytes # (Manual) Monocytes # (Manual) D-Dimer 396.96 H ABG pH POC ABG pO2 ABG pO2 ABG O2 Saturation ABG Glucose Oxyhemoglobin Carboxyhemoglobin Sodium Potassium Chloride BUN Creatinine Glucose 163 H POC Glucose Ferritin 335.1 H AST ALT Alkaline Phosphatase Lactate Dehydrogenase 406 H C-Reactive Protein 6.10 H Total Protein Albumin Arterial Blood Glucose Coronavirus (PCR) SARS-CoV-2 IgG Ab 02/25/20 02/25/20 02/26/20 16:17 22:45 07:55 WBC RBC MCHC Lymph % (Auto) Lymph # (Auto) Seg Neutrophils % Seg Neuts % (Manual) Lymphocytes % (Manual) Seg Neutrophils # Seg Neutrophils # Man Lymphocytes # (Manual) Monocytes # (Manual) D-Dimer ABG pH POC ABG pO2 ABG pO2 ABG O2 Saturation ABG Glucose Oxyhemoglobin Carboxyhemoglobin Sodium Potassium Chloride BUN Creatinine Glucose POC Glucose 124 H 154 H 124 H Ferritin AST ALT Alkaline Phosphatase Lactate Dehydrogenase C-Reactive Protein Total Protein Albumin Arterial Blood Glucose Coronavirus (PCR) SARS-CoV-2 IgG Ab 02/26/20 02/26/20 02/26/20 10:45 12:10 16:51 WBC RBC MCHC Lymph % (Auto) Lymph # (Auto) Seg Neutrophils % Seg Neuts % (Manual) Lymphocytes % (Manual) Seg Neutrophils # Seg Neutrophils # Man Lymphocytes # (Manual) Monocytes # (Manual) D-Dimer ABG pH POC ABG pO2 ABG pO2 ABG O2 Saturation ABG Glucose Oxyhemoglobin Carboxyhemoglobin Sodium Potassium Chloride BUN Creatinine Glucose POC Glucose 121 H 129 H Ferritin AST ALT Alkaline Phosphatase Lactate Dehydrogenase C-Reactive Protein Total Protein Albumin Arterial Blood Glucose Coronavirus (PCR) Positive A SARS-CoV-2 IgG Ab 02/26/20 02/27/20 02/27/20 22:00 07:58 12:04 WBC RBC MCHC Lymph % (Auto) Lymph # (Auto) Seg Neutrophils % Seg Neuts % (Manual) Lymphocytes % (Manual) Seg Neutrophils # Seg Neutrophils # Man Lymphocytes # (Manual) Monocytes # (Manual) D-Dimer ABG pH POC ABG pO2 ABG pO2 ABG O2 Saturation ABG Glucose Oxyhemoglobin Carboxyhemoglobin Sodium Potassium Chloride BUN Creatinine Glucose POC Glucose 134 H 115 H 146 H Ferritin AST ALT Alkaline Phosphatase Lactate Dehydrogenase C-Reactive Protein Total Protein Albumin Arterial Blood Glucose Coronavirus (PCR) SARS-CoV-2 IgG Ab 02/27/20 02/28/20 02/28/20 17:21 16:03 16:03 WBC RBC MCHC Lymph % (Auto) Lymph # (Auto) Seg Neutrophils % Seg Neuts % (Manual) Lymphocytes % (Manual) Seg Neutrophils # Seg Neutrophils # Man Lymphocytes # (Manual) Monocytes # (Manual) D-Dimer 995.51 H ABG pH POC ABG pO2 ABG pO2 ABG O2 Saturation ABG Glucose Oxyhemoglobin Carboxyhemoglobin Sodium Potassium Chloride BUN Creatinine Glucose POC Glucose 136 H Ferritin 464.3 H AST ALT Alkaline Phosphatase Lactate Dehydrogenase C-Reactive Protein Total Protein Albumin Arterial Blood Glucose Coronavirus (PCR) SARS-CoV-2 IgG Ab 02/28/20 02/28/20 02/28/20 16:03 16:03 16:03 WBC RBC MCHC Lymph % (Auto) Lymph # (Auto) Seg Neutrophils % Seg Neuts % (Manual) Lymphocytes % (Manual) Seg Neutrophils # Seg Neutrophils # Man Lymphocytes # (Manual) Monocytes # (Manual) D-Dimer ABG pH POC ABG pO2 ABG pO2 ABG O2 Saturation ABG Glucose Oxyhemoglobin Carboxyhemoglobin Sodium Potassium Chloride BUN 23 H Creatinine 0.4 L Glucose 120 H POC Glucose Ferritin AST 72 H ALT 117 H Alkaline Phosphatase 137 H Lactate Dehydrogenase 779 H C-Reactive Protein 6.10 H Total Protein Albumin 3.0 L Arterial Blood Glucose Coronavirus (PCR) SARS-CoV-2 IgG Ab Reactive A 02/28/20 02/29/20 02/29/20 22:06 07:38 11:11 WBC RBC MCHC Lymph % (Auto) Lymph # (Auto) Seg Neutrophils % Seg Neuts % (Manual) Lymphocytes % (Manual) Seg Neutrophils # Seg Neutrophils # Man Lymphocytes # (Manual) Monocytes # (Manual) D-Dimer ABG pH POC ABG pO2 ABG pO2 ABG O2 Saturation ABG Glucose Oxyhemoglobin Carboxyhemoglobin Sodium Potassium Chloride BUN Creatinine Glucose POC Glucose 119 H 121 H 129 H Ferritin AST ALT Alkaline Phosphatase Lactate Dehydrogenase C-Reactive Protein Total Protein Albumin Arterial Blood Glucose Coronavirus (PCR) SARS-CoV-2 IgG Ab 02/29/20 02/29/20 03/01/20 15:58 22:02 05:23 WBC RBC MCHC Lymph % (Auto) Lymph # (Auto) Seg Neutrophils % Seg Neuts % (Manual) Lymphocytes % (Manual) Seg Neutrophils # Seg Neutrophils # Man Lymphocytes # (Manual) Monocytes # (Manual) D-Dimer 1841.84 H ABG pH POC ABG pO2 ABG pO2 ABG O2 Saturation ABG Glucose Oxyhemoglobin Carboxyhemoglobin Sodium Potassium Chloride BUN Creatinine Glucose POC Glucose 118 H 141 H Ferritin AST ALT Alkaline Phosphatase Lactate Dehydrogenase C-Reactive Protein Total Protein Albumin Arterial Blood Glucose Coronavirus (PCR) SARS-CoV-2 IgG Ab 03/01/20 03/01/20 03/01/20 05:23 05:23 05:23 WBC 17.6 H RBC MCHC Lymph % (Auto) Lymph # (Auto) Seg Neutrophils % Seg Neuts % (Manual) 96.0 H Lymphocytes % (Manual) 2.0 L Seg Neutrophils # Seg Neutrophils # Man 16.9 H Lymphocytes # (Manual) 0.4 L Monocytes # (Manual) D-Dimer ABG pH POC ABG pO2 ABG pO2 ABG O2 Saturation ABG Glucose Oxyhemoglobin Carboxyhemoglobin Sodium Potassium Chloride BUN 19 H Creatinine 0.3 L Glucose 145 H POC Glucose Ferritin 323.9 H AST ALT 63 H Alkaline Phosphatase 132 H Lactate Dehydrogenase 746 H C-Reactive Protein 6.80 H Total Protein Albumin 2.9 L Arterial Blood Glucose Coronavirus (PCR) SARS-CoV-2 IgG Ab 03/01/20 03/01/20 03/01/20 06:30 08:53 11:07 WBC RBC MCHC Lymph % (Auto) Lymph # (Auto) Seg Neutrophils % Seg Neuts % (Manual) Lymphocytes % (Manual) Seg Neutrophils # Seg Neutrophils # Man Lymphocytes # (Manual) Monocytes # (Manual) D-Dimer ABG pH 7.463 H POC ABG pO2 71.9 L ABG pO2 ABG O2 Saturation ABG Glucose 147 H Oxyhemoglobin Carboxyhemoglobin 0.2 L Sodium Potassium Chloride BUN Creatinine Glucose POC Glucose 132 H 126 H Ferritin AST ALT Alkaline Phosphatase Lactate Dehydrogenase C-Reactive Protein Total Protein Albumin Arterial Blood Glucose 147 H Coronavirus (PCR) SARS-CoV-2 IgG Ab 03/01/20 03/01/20 03/02/20 15:50 21:24 08:08 WBC RBC MCHC Lymph % (Auto) Lymph # (Auto) Seg Neutrophils % Seg Neuts % (Manual) Lymphocytes % (Manual) Seg Neutrophils # Seg Neutrophils # Man Lymphocytes # (Manual) Monocytes # (Manual) D-Dimer ABG pH POC ABG pO2 ABG pO2 ABG O2 Saturation ABG Glucose Oxyhemoglobin Carboxyhemoglobin Sodium Potassium Chloride BUN Creatinine Glucose POC Glucose 122 H 142 H 152 H Ferritin AST ALT Alkaline Phosphatase Lactate Dehydrogenase C-Reactive Protein Total Protein Albumin Arterial Blood Glucose Coronavirus (PCR) SARS-CoV-2 IgG Ab 03/02/20 03/02/20 03/02/20 11:41 16:51 21:56 WBC RBC MCHC Lymph % (Auto) Lymph # (Auto) Seg Neutrophils % Seg Neuts % (Manual) Lymphocytes % (Manual) Seg Neutrophils # Seg Neutrophils # Man Lymphocytes # (Manual) Monocytes # (Manual) D-Dimer ABG pH POC ABG pO2 ABG pO2 ABG O2 Saturation ABG Glucose Oxyhemoglobin Carboxyhemoglobin Sodium Potassium Chloride BUN Creatinine Glucose POC Glucose 136 H 137 H 126 H Ferritin AST ALT Alkaline Phosphatase Lactate Dehydrogenase C-Reactive Protein Total Protein Albumin Arterial Blood Glucose Coronavirus (PCR) SARS-CoV-2 IgG Ab 03/03/20 03/03/20 03/03/20 08:05 13:10 19:32 WBC RBC MCHC Lymph % (Auto) Lymph # (Auto) Seg Neutrophils % Seg Neuts % (Manual) Lymphocytes % (Manual) Seg Neutrophils # Seg Neutrophils # Man Lymphocytes # (Manual) Monocytes # (Manual) D-Dimer ABG pH POC ABG pO2 ABG pO2 ABG O2 Saturation ABG Glucose Oxyhemoglobin Carboxyhemoglobin Sodium Potassium Chloride BUN 27 H Creatinine 0.5 L D Glucose 200 H POC Glucose 147 H 114 H Ferritin AST ALT Alkaline Phosphatase Lactate Dehydrogenase C-Reactive Protein Total Protein Albumin 3.1 L Arterial Blood Glucose Coronavirus (PCR) SARS-CoV-2 IgG Ab 03/03/20 03/03/20 03/03/20 19:32 19:39 22:44 WBC 20.3 H RBC MCHC Lymph % (Auto) Lymph # (Auto) Seg Neutrophils % Seg Neuts % (Manual) 90.0 H Lymphocytes % (Manual) 4.0 L Seg Neutrophils # Seg Neutrophils # Man 18.3 H Lymphocytes # (Manual) 0.8 L Monocytes # (Manual) 1.2 H D-Dimer ABG pH POC ABG pO2 ABG pO2 ABG O2 Saturation ABG Glucose Oxyhemoglobin Carboxyhemoglobin Sodium Potassium Chloride BUN Creatinine Glucose POC Glucose 186 H 159 H Ferritin AST ALT Alkaline Phosphatase Lactate Dehydrogenase C-Reactive Protein Total Protein Albumin Arterial Blood Glucose Coronavirus (PCR) SARS-CoV-2 IgG Ab 03/04/20 03/04/20 03/04/20 06:06 06:06 07:52 WBC 17.2 H RBC MCHC Lymph % (Auto) Lymph # (Auto) Seg Neutrophils % Seg Neuts % (Manual) 88.0 H Lymphocytes % (Manual) 5.0 L Seg Neutrophils # 15.3 H Seg Neutrophils # Man 15.1 H Lymphocytes # (Manual) 0.9 L Monocytes # (Manual) D-Dimer ABG pH POC ABG pO2 ABG pO2 ABG O2 Saturation ABG Glucose Oxyhemoglobin Carboxyhemoglobin Sodium Potassium Chloride BUN 31 H Creatinine 0.4 L Glucose 144 H POC Glucose 131 H Ferritin AST ALT Alkaline Phosphatase Lactate Dehydrogenase C-Reactive Protein Total Protein Albumin 3.0 L Arterial Blood Glucose Coronavirus (PCR) SARS-CoV-2 IgG Ab 03/04/20 03/04/20 03/04/20 11:30 11:40 16:21 WBC RBC MCHC Lymph % (Auto) Lymph # (Auto) Seg Neutrophils % Seg Neuts % (Manual) Lymphocytes % (Manual) Seg Neutrophils # Seg Neutrophils # Man Lymphocytes # (Manual) Monocytes # (Manual) D-Dimer ABG pH 7.489 H POC ABG pO2 ABG pO2 54.6 L ABG O2 Saturation 90.4 L ABG Glucose Oxyhemoglobin 89.1 L Carboxyhemoglobin Sodium Potassium Chloride BUN Creatinine Glucose POC Glucose 121 H 155 H Ferritin AST ALT Alkaline Phosphatase Lactate Dehydrogenase C-Reactive Protein Total Protein Albumin Arterial Blood Glucose Coronavirus (PCR) SARS-CoV-2 IgG Ab 03/05/20 03/05/20 03/05/20 12:01 16:48 16:48 WBC RBC MCHC Lymph % (Auto) Lymph # (Auto) Seg Neutrophils % Seg Neuts % (Manual) Lymphocytes % (Manual) Seg Neutrophils # Seg Neutrophils # Man Lymphocytes # (Manual) Monocytes # (Manual) D-Dimer 1170.89 H ABG pH POC ABG pO2 ABG pO2 ABG O2 Saturation ABG Glucose Oxyhemoglobin Carboxyhemoglobin Sodium Potassium Chloride BUN Creatinine Glucose POC Glucose 116 H Ferritin 348.4 H AST ALT Alkaline Phosphatase Lactate Dehydrogenase C-Reactive Protein Total Protein Albumin Arterial Blood Glucose Coronavirus (PCR) SARS-CoV-2 IgG Ab 03/05/20 03/05/20 03/06/20 16:48 17:40 09:40 WBC RBC MCHC Lymph % (Auto) Lymph # (Auto) Seg Neutrophils % Seg Neuts % (Manual) Lymphocytes % (Manual) Seg Neutrophils # Seg Neutrophils # Man Lymphocytes # (Manual) Monocytes # (Manual) D-Dimer ABG pH POC ABG pO2 ABG pO2 77.4 L ABG O2 Saturation ABG Glucose Oxyhemoglobin 94.5 L Carboxyhemoglobin Sodium Potassium Chloride BUN Creatinine Glucose POC Glucose 233 H Ferritin AST ALT Alkaline Phosphatase Lactate Dehydrogenase 619 H C-Reactive Protein 3.50 H Total Protein Albumin Arterial Blood Glucose Coronavirus (PCR) SARS-CoV-2 IgG Ab 03/06/20 03/06/20 03/07/20 11:52 17:05 04:22 WBC 16.6 H RBC MCHC Lymph % (Auto) 7.9 L Lymph # (Auto) Seg Neutrophils % 87.5 H Seg Neuts % (Manual) Lymphocytes % (Manual) Seg Neutrophils # 14.5 H Seg Neutrophils # Man Lymphocytes # (Manual) Monocytes # (Manual) D-Dimer ABG pH POC ABG pO2 ABG pO2 ABG O2 Saturation ABG Glucose Oxyhemoglobin Carboxyhemoglobin Sodium Potassium Chloride BUN Creatinine Glucose POC Glucose 168 H 163 H Ferritin AST ALT Alkaline Phosphatase Lactate Dehydrogenase C-Reactive Protein Total Protein Albumin Arterial Blood Glucose Coronavirus (PCR) SARS-CoV-2 IgG Ab 03/07/20 03/07/20 03/07/20 04:22 11:27 16:55 WBC RBC MCHC Lymph % (Auto) Lymph # (Auto) Seg Neutrophils % Seg Neuts % (Manual) Lymphocytes % (Manual) Seg Neutrophils # Seg Neutrophils # Man Lymphocytes # (Manual) Monocytes # (Manual) D-Dimer ABG pH POC ABG pO2 ABG pO2 ABG O2 Saturation ABG Glucose Oxyhemoglobin Carboxyhemoglobin Sodium 134 L Potassium Chloride BUN 27 H Creatinine 0.4 L Glucose 109 H POC Glucose 108 H 140 H Ferritin AST ALT Alkaline Phosphatase Lactate Dehydrogenase C-Reactive Protein Total Protein 6.1 L Albumin 3.1 L Arterial Blood Glucose Coronavirus (PCR) SARS-CoV-2 IgG Ab 03/08/20 03/08/20 03/09/20 17:17 18:37 12:10 WBC RBC MCHC Lymph % (Auto) Lymph # (Auto) Seg Neutrophils % Seg Neuts % (Manual) Lymphocytes % (Manual) Seg Neutrophils # Seg Neutrophils # Man Lymphocytes # (Manual) Monocytes # (Manual) D-Dimer ABG pH POC ABG pO2 ABG pO2 ABG O2 Saturation ABG Glucose Oxyhemoglobin Carboxyhemoglobin Sodium Potassium Chloride BUN Creatinine Glucose POC Glucose 145 H 231 H 115 H Ferritin AST ALT Alkaline Phosphatase Lactate Dehydrogenase C-Reactive Protein Total Protein Albumin Arterial Blood Glucose Coronavirus (PCR) SARS-CoV-2 IgG Ab 03/10/20 11:23 WBC RBC MCHC Lymph % (Auto) Lymph # (Auto) Seg Neutrophils % Seg Neuts % (Manual) Lymphocytes % (Manual) Seg Neutrophils # Seg Neutrophils # Man Lymphocytes # (Manual) Monocytes # (Manual) D-Dimer ABG pH POC ABG pO2 ABG pO2 ABG O2 Saturation ABG Glucose Oxyhemoglobin Carboxyhemoglobin Sodium Potassium Chloride BUN Creatinine Glucose POC Glucose 125 H Ferritin AST ALT Alkaline Phosphatase Lactate Dehydrogenase C-Reactive Protein Total Protein Albumin Arterial Blood Glucose Coronavirus (PCR) SARS-CoV-2 IgG Ab Allied health notes reviewed: nursing
--- NOTE | 2020-03-10 15:07 | Progress Note ---
Assessment and Plan Assessment and plan: 50 YO Female with Obesity Hypoventilation Syndrome presents to ED for evaluation. Patient states that she has "been feeling sick" for the past 2 weeks with persistent symptoms over the same timeframe. Patient was seen and evaluated by her primary care physician and treated with oral antibiotics for outpatient pneumonia. Patient states that she has experienced persistent symptoms in spite of of compliance with medication. Patient reports fever, dry cough, shortness of breath, decreased exercise tolerance, nausea, multiple episodes of vomiting, multiple loose stools, loss of sense of smell, loss of sense of taste, fatigue, malaise, body aches. Patient transported to [facility] via private vehicle for further care and evaluation of the aforementioned symptoms. Patient seen and evaluated in the emergency department. All lab and imaging studies reviewed. Patient found to have a fever to 102.1 F, as well as a pulse oximetry of 88% with exertion on room air which is consistent with acute hypoxem ic respiratory failure. Patient underwent chest x-ray which revealed bilateral pneumonia. Patient admitted to medical floor and initiated on pneumonia protocol as well as coronavirus protocol. Coronavirus PCR ordered in the emergency department and is pending at time of admission. Patient acknowledges fever, but denies chest pain, palpitation, skin rash, recent ill contacts, trauma, or known exposure to COVID-19. No medication listed at time of admission. No prior admission for review. 02/29/2020 Patient alert, awake. Having cough. Having mild shortness of breath at rest. Patient is on vapotherm, FIO2 100% and O2 saturation 90%. Patient switched to BIPAP. But patient not using it.Patient afebrile. No leukocytosis. Complaining headache at times.Patients [place] virus PCR is Positive. Patients chest xray done 02/24/20 reported Patchy bilateral pulmonary opacities are concerning for infection/pneumonia. 03/01/2020 03/01/2020 Patient on high flow oxygen and BiPAP 03/02/2020 Patient still on high flow oxygen and BiPAP 03/03/2020 Patient with worsening inflammatory markers Chest x-ray worsening with extensive consolidations Patient will be transferred to ICU 03/04/2020 Patient on high flow oxygen-40 L Worsening pulmonary alveolar infiltrates Possible intubation !05/07/19 On High flow oxygen 03/07/2020 Patient still on high flow oxygen Not intubated 03/08- on HFNC 03/10: Clinically showing some improvement as HFNC is improving. Continue weaning as tolerated (1) Acute hypoxemic respiratory failure Current Visit: Yes Status: Acute Plan to address problem: Patient on 40 L high flow oxygen Worsening clinical picture Patient may need intubation Patient to transfer to ICU Dr. Love discussed the case with me Patient transferred to ICU Patient on high flow oxygen Trying to avoid intubation (2) Covid pneumonia Current Visit: Yes Status: Acute Plan to address problem: Patient is coronavirus PCR positive on 02/26/2020 Patient is also SARS-CoV-2 IgG positive Patient is not a candidate for Covid convalescent plasma Steroids Continue remdesivir for 5 days-today is day 5 of day 5 Continue anticoagulation Prone positioning as possible High flow oxygen (3) Pneumonia Current Visit: Yes Status: Acute Qualifiers: Laterality: bilateral Plan to address problem: Pneumonia protocol: Chest x-ray, CBC, CMP, supplemental oxygen, nebulizer therapy, pulse oximetry, IV antibiotic therapy, pulmonary toilet, blood culture. (4) severe sepsis Remains hypoxic likely due to bilateral pneumonia Continue IV antibiotics (5) DVT prophylaxis Current Visit: Yes Status: Acute Plan to address problem: High-dose Lovenox History Interval history: Patient seen and examined, discussed with Nursing staff, clinically showing improvement, continues to prone herself Hospitalist Physical - Physical exam Narrative exam: General appearance: Present: mild distress, well-nourished, ON High Flow - EENT Eyes: PERRL, EOM intact ENT: hearing intact, clear oral mucosa Ears: bilateral: normal - Neck Neck: supple, normal ROM - Respiratory Respiratory effort: normal Respiratory: bilateral: CTA, rhonchi - Breasts Breasts: normal - Cardiovascular Heart rate: 78 Rhythm: regular Heart Sounds: Present: S1 & S2. Absent: gallop, rub Extremities: pulses intact, No edema, normal color, Full ROM - Gastrointestinal General gastrointestinal: Present: soft, non-tender, non-distended, normal bowel sounds - Genitourinary Female genitourinary: normal - Integumentary Integumentary: clear, warm, dry - Musculoskeletal Musculoskeletal: 1, strength equal bilaterally - Neurologic Neurologic: moves all extremities - Psychiatric Psychiatric: memory intact, appropriate mood/affect, intact judgment & insight - Constitutional Vitals: Temp Pulse Resp BP Pulse Ox 98.6 F 92 H 31 H 105/68 95 03/10/20 12:00 03/10/20 14:00 03/10/20 14:00 03/10/20 14:00 03/10/20 14:00 General appearance: Present: mild distress, well-nourished HEART Score - HEART Score Troponin: Troponin T < 0.010 ng/mL (0.00-0.029) 02/28/20 16:03 Results - Labs CBC & Chem 7: 03/07/20 04:22 03/07/20 04:22 Labs: Laboratory Last Values WBC 16.6 K/mm3 (4.5-11.0) H 03/07/20 04:22 RBC 4.20 M/mm3 (3.65-5.03) 03/07/20 04:22 Hgb 12.7 gm/dl (10.1-14.3) 03/07/20 04:22 Hct 38.3 % (30.3-42.9) 03/07/20 04:22 MCV 91 fl (79-97) 03/07/20 04:22 MCH 30 pg (28-32) 03/07/20 04:22 MCHC 33 % (30-34) 03/07/20 04:22 RDW 14.0 % (13.2-15.2) 03/07/20 04:22 Plt Count 259 K/mm3 (140-440) 03/07/20 04:22 Lymph % (Auto) 7.9 % (13.4-35.0) L 03/07/20 04:22 Talbot % (Auto) 3.5 % (0.0-7.3) 03/07/20 04:22 Eos % (Auto) 0.9 % (0.0-4.3) 03/07/20 04:22 Baso % (Auto) 0.2 % (0.0-1.8) 03/07/20 04:22 Lymph # (Auto) 1.3 K/mm3 (1.2-5.4) 03/07/20 04:22 Talbot # (Auto) 0.6 K/mm3 (0.0-0.8) 03/07/20 04:22 Eos # (Auto) 0.2 K/mm3 (0.0-0.4) 03/07/20 04:22 Baso # (Auto) 0.0 K/mm3 (0.0-0.1) 03/07/20 04:22 Add Manual Diff Complete 03/04/20 06:06 Total Counted 100 03/04/20 06:06 Seg Neutrophils % 87.5 % (40.0-70.0) H 03/07/20 04:22 Seg Neuts % (Manual) 88.0 % (40.0-70.0) H 03/04/20 06:06 Lymphocytes % (Manual) 5.0 % (13.4-35.0) L 03/04/20 06:06 Reactive Lymphs % (Man) 1.0 % 03/04/20 06:06 Monocytes % (Manual) 4.0 % (0.0-7.3) 03/04/20 06:06 Eosinophils % (Manual) 1.0 % (0.0-4.3) 03/04/20 06:06 Metamyelocytes % 1.0 % 03/04/20 06:06 Nucleated RBC % Not Reportable 03/04/20 06:06 Seg Neutrophils # 14.5 K/mm3 (1.8-7.7) H 03/07/20 04:22 Seg Neutrophils # Man 15.1 K/mm3 (1.8-7.7) H 03/04/20 06:06 Band Neutrophils # 0.0 K/mm3 03/04/20 06:06 Lymphocytes # (Manual) 0.9 K/mm3 (1.2-5.4) L 03/04/20 06:06 Abs React Lymphs (Man) 0.2 K/mm3 03/04/20 06:06 Monocytes # (Manual) 0.7 K/mm3 (0.0-0.8) 03/04/20 06:06 Eosinophils # (Manual) 0.2 K/mm3 (0.0-0.4) 03/04/20 06:06 Basophils # (Manual) 0.0 K/mm3 (0.0-0.1) 03/04/20 06:06 Metamyelocytes # 0.2 K/mm3 03/04/20 06:06 Myelocytes # 0.0 K/mm3 03/04/20 06:06 Promyelocytes # 0.0 K/mm3 03/04/20 06:06 Blast Cells # 0.0 K/mm3 03/04/20 06:06 WBC Morphology Not Reportable 03/04/20 06:06 Hypersegmented Neuts Not Reportable 03/04/20 06:06 Hyposegmented Neuts Not Reportable 03/04/20 06:06 Hypogranular Neuts Not Reportable 03/04/20 06:06 Smudge Cells Not Reportable 03/04/20 06:06 Toxic Granulation Not Reportable 03/04/20 06:06 Toxic Vacuolation Not Reportable 03/04/20 06:06 Dohle Bodies Not Reportable 03/04/20 06:06 Pelger-Huet Anomaly Not Reportable 03/04/20 06:06 Mian Rods Not Reportable 03/04/20 06:06 Platelet Estimate Consistent w auto 03/04/20 06:06 Clumped Platelets Not Reportable 03/04/20 06:06 Plt Clumps, EDTA Not Reportable 03/04/20 06:06 Large Platelets Not Reportable 03/04/20 06:06 Giant Platelets Not Reportable 03/04/20 06:06 Platelet Satelliting Not Reportable 03/04/20 06:06 Plt Morphology Comment Not Reportable 03/04/20 06:06 RBC Morphology Normal 03/04/20 06:06 Dimorphic RBCs Not Reportable 03/04/20 06:06 Polychromasia Not Reportable 03/04/20 06:06 Hypochromasia Not Reportable 03/04/20 06:06 Poikilocytosis Not Reportable 03/04/20 06:06 Anisocytosis Not Reportable 03/04/20 06:06 Microcytosis Not Reportable 03/04/20 06:06 Macrocytosis Not Reportable 03/04/20 06:06 Spherocytes Not Reportable 03/04/20 06:06 Pappenheimer Bodies Not Reportable 03/04/20 06:06 Sickle Cells Not Reportable 03/04/20 06:06 Target Cells Not Reportable 03/04/20 06:06 Tear Drop Cells Not Reportable 03/04/20 06:06 Ovalocytes Not Reportable 03/04/20 06:06 Helmet Cells Not Reportable 03/04/20 06:06 Weiss-Trappe Bodies Not Reportable 03/04/20 06:06 Veblen Rings Not Reportable 03/04/20 06:06 Nunu Cells Not Reportable 03/04/20 06:06 Bite Cells Not Reportable 03/04/20 06:06 Crenated Cell Not Reportable 03/04/20 06:06 Elliptocytes Not Reportable 03/04/20 06:06 Acanthocytes (Spur) Not Reportable 03/04/20 06:06 Rouleaux Not Reportable 03/04/20 06:06 Hemoglobin C Crystals Not Reportable 03/04/20 06:06 Schistocytes Not Reportable 03/04/20 06:06 Malaria parasites Not Reportable 03/04/20 06:06 Jesus Bodies Not Reportable 03/04/20 06:06 Hem Pathologist Commnt No 03/04/20 06:06 D-Dimer 1170.89 ng/mlDDU (0-234) H 03/05/20 16:48 ABG pH 7.439 pH Units (7.350-7.450) 03/06/20 09:40 POC ABG pCO2 40.0 mmHg (32.0-48.0) 03/01/20 08:53 ABG pCO2 36.8 mm Hg 03/06/20 09:40 POC ABG pO2 71.9 mmHg (83-108) L 03/01/20 08:53 ABG pO2 77.4 mm Hg (80.0-90.0) L 03/06/20 09:40 POC ABG HCO3 28.0 03/01/20 08:53 ABG HCO3 24.4 mmol/L (20.0-26.0) 03/06/20 09:40 ABG O2 Saturation 96.0 % (95.0-99.0) 03/06/20 09:40 ABG O2 Content 18.4 (0.0-44) 03/06/20 09:40 POC ABG Base Excess 4.0 03/01/20 08:53 ABG Base Excess 0.5 mmol/L (-2.0-3.0) 03/06/20 09:40 ABG Hemoglobin 13.8 gm/dl (12.0-16.0) 03/06/20 09:40 ABG Oxyhemoglobin 94.1 (94-98) 03/01/20 08:53 ABG Carboxyhemoglobin 1.1 % (0.0-5.0) 03/06/20 09:40 ABG Methemoglobin 0.4 % (0.0-1.5) 03/06/20 09:40 ABG Sodium 139.8 mmol/L (136.0-145.0) 03/01/20 08:53 ABG Potassium 3.9 mmol/L (3.40-4.50) 03/01/20 08:53 ABG Chloride 105.0 mmol/L (98-107) 03/01/20 08:53 ABG Glucose 147 mg/dL (65-95) H 03/01/20 08:53 Oxyhemoglobin 94.5 % (95.0-99.0) L 03/06/20 09:40 Carboxyhemoglobin 0.2 (0.5-1.5) L 03/01/20 08:53 FiO2 100 % 03/06/20 09:40 Sodium 134 mmol/L (137-145) L 03/07/20 04:22 Potassium 4.4 mmol/L (3.6-5.0) 03/07/20 04:22 Chloride 99.2 mmol/L (98-107) 03/07/20 04:22 Carbon Dioxide 25 mmol/L (22-30) 03/07/20 04:22 Anion Gap 14 mmol/L 03/07/20 04:22 BUN 27 mg/dL (7-17) H 03/07/20 04:22 Creatinine 0.4 mg/dL (0.6-1.2) L 03/07/20 04:22 Estimated GFR > 60 ml/min 03/07/20 04:22 BUN/Creatinine Ratio 68 % 03/07/20 04:22 Glucose 109 mg/dL (65-100) H 03/07/20 04:22 POC Glucose 125 mg/dL (70-105) H 03/10/20 11:23 Lactic Acid 1.00 mmol/L (0.7-2.0) 02/24/20 14:31 Calcium 8.9 mg/dL (8.4-10.2) 03/07/20 04:22 Ferritin 348.4 ng/mL (10.0-200.0) H 03/05/20 16:48 Total Bilirubin 0.50 mg/dL (0.1-1.2) 03/07/20 04:22 Direct Bilirubin < 0.2 mg/dL (0-0.2) 03/01/20 05:23 Indirect Bilirubin 0.2 mg/dL 03/01/20 05:23 AST 19 units/L (5-40) 03/07/20 04:22 ALT 24 units/L (7-56) 03/07/20 04:22 Alkaline Phosphatase 81 units/L (35-129) 03/07/20 04:22 Lactate Dehydrogenase 619 units/L (91-180) H 03/05/20 16:48 Troponin T < 0.010 ng/mL (0.00-0.029) 02/28/20 16:03 C-Reactive Protein 3.50 mg/dL (0.00-1.30) H 03/05/20 16:48 NT-Pro-B Natriuret Pep 47.67 pg/mL (0-450) 03/02/20 16:51 Total Protein 6.1 g/dL (6.3-8.2) L 03/07/20 04:22 Albumin 3.1 g/dL (3.9-5) L 03/07/20 04:22 Albumin/Globulin Ratio 1.0 % 03/07/20 04:22 Procalcitonin < 0.05 ng/mL (<0.15) 02/25/20 14:21 Arterial Blood Glucose 147 mg/dL (65-95) H 03/01/20 08:53 Arterial Blood Ionized Calcium 4.7 mg/dL (4.6-5.3) 03/01/20 08:53 Urine Color Yellow (Yellow) 02/24/20 Unknown Urine Turbidity Clear (Clear) 02/24/20 Unknown Urine pH 6.0 (5.0-7.0) 02/24/20 Unknown Ur Specific [place] 1.023 (1.003-1.030) 02/24/20 Unknown Urine Protein 100 mg/dl mg/dL (Negative) 02/24/20 Unknown Urine Glucose (UA) Neg mg/dL (Negative) 02/24/20 Unknown Urine Ketones Neg mg/dL (Negative) 02/24/20 Unknown Urine Blood Neg (Negative) 02/24/20 Unknown Urine Nitrite Neg (Negative) 02/24/20 Unknown Urine Bilirubin Neg (Negative) 02/24/20 Unknown Urine Urobilinogen 2.0 mg/dL (<2.0) 02/24/20 Unknown Ur Leukocyte Esterase Neg (Negative) 02/24/20 Unknown Urine WBC (Auto) 4.0 /HPF (0.0-6.0) 02/24/20 Unknown Urine RBC (Auto) 2.0 /HPF (0.0-6.0) 02/24/20 Unknown U Epithel Cells (Auto) 3.0 /HPF (0-13.0) 02/24/20 Unknown Urine Bacteria (Auto) 1+ /HPF (Negative) 02/24/20 Unknown Urine Mucus 1+ /HPF 02/24/20 Unknown Coronavirus (PCR) Positive (Negative) A 02/26/20 10:45 SARS-CoV-2 IgG Ab Reactive (NonReactive) A 02/28/20 16:03 - Diagnostic Impressions Diagnostic Impressions: Echocardiogram 03/01/20 09:12 Transthoracic Echocardiogram Indication: Eval EF; PA HTN BP: 121/78 HR: 90 Conclusions *Global left ventricular systolic function is normal. *The estimated ejection fraction is 60-65%. *The right ventricular global systolic function is normal. *There is no evidence of aortic regurgitation. *There is trace of mitral regurgitation. *There is trace tricuspid regurgitation. *The right ventricular systolic pressure is calculated at 28 mmHg. *There is trace pulmonic regurgitation. Findings Left Ventricle: The left ventricular chamber size is normal. There is no left ventricular hypertrophy. Global left ventricular wall motion and contractility are within normal limits. Global left ventricular systolic function is normal. The estimated ejection fraction is 60-65%. There is an E to A reversal in the mitral valve flow pattern suggestive of diastolic dysfunction. Left Atrium: The left atrial chamber size is normal. Right Ventricle: The right ventricular cavity size is normal. The right ventricular global systolic function is normal. Right Atrium: The right atrial cavity size is normal. Aortic Valve: There is no evidence of aortic valve thickening. There is no evidence of aortic regurgitation. Mitral Valve: The mitral valve leaflets do not appear thickened. There is trace of mitral regurgitation. Tricuspid Valve: The tricuspid valve leaflets are normal. There is trace tricuspid regurgitation. The right ventricular systolic pressure is calculated at 28 mmHg. Pulmonic Valve: There is no evidence of pulmonic valve thickening. There is trace pulmonic regurgitation. Pericardium: There is no pericardial effusion. Aorta: The aorta appears normal. Venous: The inferior vena cava appears normal in size. Measurements Chambers 2D Name Value Normal Range IVSd (2D) 0.97 cm (0.6 - 1.1) LVPWd (2D) 1.05 cm (0.6 - 1.1) LVIDd (2D) 3.87 cm (3.7 - 5.6) LVIDs (2D) 2.41 cm (2 - 3.8) LV FS (2D) 37.69 % - EF Teichholz (2D) 68.47 % - Ao root diameter (2D) 2.92 cm (2 - 3.7) Volumes/Mass Name Value Normal Range LA ESV SP 4CH (A/L) 32.2 ml - LA ESV SP 2CH (A/L) 24.78 ml - LA ESV BP (A/L) 29.52 ml - LA ESV BP (A/L) index 16.68 ml/m2 - LA ESV SP 4CH (MOD) 29.62 ml - LA ESV SP 2CH (MOD) 23.68 ml - LA ESV BP (MOD) 27.57 ml - LA ESV BP (MOD) index 15.58 ml/m2 - Diastolic/Systolic Function Name Value Normal Range MV E-wave Vmax 0.59 m/sec - MV deceleration time 258.54 msec - MV A-wave Vmax 0.73 m/sec - MV E:A ratio 0.81 ratio - Aortic Valve Name Value Normal Range AV Vmax 1.33 m/sec - AV VTI 22.87 cm - AV peak gradient 7.09 mmHg - AV mean gradient 4.39 mmHg - LVOT diameter 1.52 cm - LVOT Vmax 1.22 m/sec - LVOT VTI 20.85 cm - LVOT peak gradient 5.96 mmHg - LVOT mean gradient 2.91 mmHg - SV LVOT 37.79 ml - VINEET (continuity Vmax) 1.66 cm2 - VINEET (continuity VTI) 1.65 cm2 - Ascending Ao 2.78 cm - Tricuspid Valve Name Value Normal Range TR Vmax 2.48 m/sec - TR peak gradient 25 mmHg - RAP 3 mmHg - RVSP 28 mmHg - IVC diameter 1.77 cm (1.2 - 2.3) Pulmonic Valve/Qp:Qs Name Value Normal Range PV Vmax 0.85 m/sec - PV peak gradient 2.9 mmHg - IA end-diastolic Vmax 1.26 m/sec - PV acceleration time 144.62 msec - Pr[place]/IV: Voiding Method External Female Catheter IV Catheter Type [Right Peripheral IV Forearm] IV Catheter Type [Right Peripheral IV Antecubital] Active Medications - Current Medications Current Medications: Generic Name Dose Route Start Last Admin Trade Name Freq PRN Reason Stop Dose Admin Acetaminophen 650 mg 02/24/20 15:14 03/09/20 22:12 Acetaminophen 325 Mg Tab PO 650 mg Q4H PRN Administration Pain MILD(1-3)/Fever >100.5/DANGELO Albuterol 2.5 mg 02/24/20 15:14 Albuterol 2.5 Mg/3 Ml Nebu IH Q4HRT PRN Shortness Of Breath Ascorbic Acid 1,000 mg 02/29/20 23:45 03/10/20 09:21 Ascorbic Acid 500 Mg Tab PO 1,000 mg BID UTE Administration Benzonatate 100 mg 02/25/20 22:00 03/10/20 09:22 Benzonatate 100 Mg Cap PO 100 mg BID UTE Administration Cholecalciferol 5,000 unit 03/01/20 10:00 03/09/20 09:02 Cholecalciferol (Vit D3) 5,000 Unit Tab PO 5,000 unit DAILY UTE Administration Dexamethasone 6 mg 03/04/20 14:30 03/10/20 09:21 Dexamethasone 4 Mg/Ml Vial IV 03/12/20 10:01 6 mg Q24HR UTE Administration Enoxaparin Sodium 80 mg 02/29/20 23:45 03/10/20 09:23 Enoxaparin 80 Mg/0.8 Ml Inj SUB-Q 80 mg Q12HR UTE Administration Protocol Famotidine 10 mg 02/24/20 22:00 03/10/20 09:22 Famotidine 10 Mg Tab PO 10 mg BID UTE Administration Hydrocodone Bit/Homatropine Methylb 10 ml 02/26/20 15:00 03/10/20 09:33 Hydrocodone/Homatropine 5-1.5mg /5 Ml Oral Liqd Unit Dose PO 10 ml Q6H PRN Administration Cough Ondansetron HCl 4 mg 02/24/20 15:14 Ondansetron 4 Mg/2 Ml Inj IV Q8H PRN Nausea And Vomiting Sodium Chloride 10 ml 02/24/20 22:00 03/10/20 09:23 Sodium Chloride 0.9% 10 Ml Flush Syringe IV 10 ml BID UTE Administration Sodium Chloride 10 ml 02/24/20 15:14 Sodium Chloride 0.9% 10 Ml Flush Syringe IV PRN PRN LINE FLUSH Tramadol HCl 50 mg 02/29/20 22:10 03/10/20 09:22 Tramadol 50 Mg Tab PO 50 mg Q6H PRN Administration Pain, Moderate (4-6) Nutrition/Malnutrition Assess - Dietary Evaluation Nutrition/Malnutrition Findings: Nutrition Notes Start: 03/02/20 12:47 Freq: Status: Active Protocol: Document 03/02/20 12:47 EN (Rec: 03/02/20 12:53 EN [email or web address]) Co-Sign 03/02/20 12:47 MK Nutrition Notes Need for Assessment generated from: LOS Initial or Follow up Brief Note Current Diagnosis Sepsis Other Pertinent Diagnosis COVID-19+, Pneu, acute respiratory failure Current Diet Cardiac [place] Body Weight (kg) 0 Subjective/Other Information Pt screened for LOS. Unable to reach pt by phone x2 for assessment. RN unsure of current PO intakes for today but states pt has not had any N/V/D. Per chart, 100% meal consumption consistently Nutrition Intervention Anticipated Discharge Needs: Cardiac diet Revisit per MD consult or patient Sign Off request:
[2020-03-10] MEDS ORDERED: SODIUM CHLORIDE 0.9% 500 ML 500 ML ONE (22:44)
[2020-03-11] MEDS: ACETAMINOPHEN 325 MG TAB PO PRN (00:13)
[2020-03-11] MEDS ORDERED: DEXTROSE 50% IN WATER (25GM) 50 ML SYRINGE IV ONE (00:20)
[2020-03-11] MEDS: FAMOTIDINE 10 MG TAB PO SCH (09:15)
[2020-03-11] MEDS: ASCORBIC ACID 500 MG TAB PO SCH (09:15)
[2020-03-11] MEDS: traMADol 50 MG TAB PO PRN (09:15)
[2020-03-11] MEDS: ENOXAPARIN 80 MG/0.8 ML INJ SUB-Q SCH (09:16)
[2020-03-11] MEDS: CHOLECALCIFEROL (VIT D3) 5,000 UNIT TAB PO SCH (09:16)
[2020-03-11] MEDS: BENZONATATE 100 MG CAP PO SCH (09:16)
[2020-03-11] MEDS: dexAMETHasone 4 MG/ML VIAL IV SCH (09:16)
--- NOTE | 2020-03-11 11:26 | Progress Note ---
Assessment and Plan Assessment and plan: 50 YO Female with Obesity Hypoventilation Syndrome presents to ED for evaluation. Patient states that she has "been feeling sick" for the past 2 weeks with persistent symptoms over the same timeframe. Patient was seen and evaluated by her primary care physician and treated with oral antibiotics for outpatient pneumonia. Patient states that she has experienced persistent symptoms in spite of of compliance with medication. Patient reports fever, dry cough, shortness of breath, decreased exercise tolerance, nausea, multiple episodes of vomiting, multiple loose stools, loss of sense of smell, loss of sense of taste, fatigue, malaise, body aches. Patient transported to [facility] via private vehicle for further care and evaluation of the aforementioned symptoms. Patient seen and evaluated in the emergency department. All lab and imaging studies reviewed. Patient found to have a fever to 102.1 F, as well as a pulse oximetry of 88% with exertion on room air which is consistent with acute hypoxem ic respiratory failure. Patient underwent chest x-ray which revealed bilateral pneumonia. Patient admitted to medical floor and initiated on pneumonia protocol as well as coronavirus protocol. Coronavirus PCR ordered in the emergency department and is pending at time of admission. Patient acknowledges fever, but denies chest pain, palpitation, skin rash, recent ill contacts, trauma, or known exposure to COVID-19. No medication listed at time of admission. No prior admission for review. 02/29/2020 Patient alert, awake. Having cough. Having mild shortness of breath at rest. Patient is on vapotherm, FIO2 100% and O2 saturation 90%. Patient switched to BIPAP. But patient not using it.Patient afebrile. No leukocytosis. Complaining headache at times.Patients [place] virus PCR is Positive. Patients chest xray done 02/24/20 reported Patchy bilateral pulmonary opacities are concerning for infection/pneumonia. 03/01/2020 03/01/2020 Patient on high flow oxygen and BiPAP 03/02/2020 Patient still on high flow oxygen and BiPAP 03/03/2020 Patient with worsening inflammatory markers Chest x-ray worsening with extensive consolidations Patient will be transferred to ICU 03/04/2020 Patient on high flow oxygen-40 L Worsening pulmonary alveolar infiltrates Possible intubation !05/07/19 On High flow oxygen 03/07/2020 Patient still on high flow oxygen Not intubated 03/08- on HFNC 03/10: Clinically showing some improvement as HFNC is improving. Continue weaning as tolerated 03/11: Continue supportive care, weaning oxygen as tolerated. Can transfer to 3rd floor if weaned off HFNC. (1) Acute hypoxemic respiratory failure Current Visit: Yes Status: Acute Plan to address problem: Patient on 40 L high flow oxygen Worsening clinical picture Patient may need intubation Patient to transfer to ICU Dr. Love discussed the case with me Patient transferred to ICU Patient on high flow oxygen Trying to avoid intubation (2) Covid pneumonia Current Visit: Yes Status: Acute Plan to address problem: Patient is coronavirus PCR positive on 02/26/2020 Patient is also SARS-CoV-2 IgG positive Patient is not a candidate for Covid convalescent plasma Steroids Continue remdesivir for 5 days-today is day 5 of day 5 Continue anticoagulation Prone positioning as possible High flow oxygen (3) Pneumonia Current Visit: Yes Status: Acute Qualifiers: Laterality: bilateral Plan to address problem: Pneumonia protocol: Chest x-ray, CBC, CMP, supplemental oxygen, nebulizer therapy, pulse oximetry, IV antibiotic therapy, pulmonary toilet, blood culture. (4) severe sepsis Remains hypoxic likely due to bilateral pneumonia Continue IV antibiotics (5) DVT prophylaxis Current Visit: Yes Status: Acute Plan to address problem: High-dose Lovenox History Interval history: Patient seen and examined, discussed with Nursing staff, clinically showing improvement, continues to prone herself, no new issues overnight Hospitalist Physical - Physical exam Narrative exam: General appearance: Present: mild distress, well-nourished, ON High Flow - EENT Eyes: PERRL, EOM intact ENT: hearing intact, clear oral mucosa Ears: bilateral: normal - Neck Neck: supple, normal ROM - Respiratory Respiratory effort: normal Respiratory: bilateral: CTA, rhonchi - Breasts Breasts: normal - Cardiovascular Heart rate: 78 Rhythm: regular Heart Sounds: Present: S1 & S2. Absent: gallop, rub Extremities: pulses intact, No edema, normal color, Full ROM - Gastrointestinal General gastrointestinal: Present: soft, non-tender, non-distended, normal bowel sounds - Genitourinary Female genitourinary: normal - Integumentary Integumentary: clear, warm, dry - Musculoskeletal Musculoskeletal: 1, strength equal bilaterally - Neurologic Neurologic: moves all extremities - Psychiatric Psychiatric: memory intact, appropriate mood/affect, intact judgment & insight - Constitutional Vitals: Temp Pulse Resp BP Pulse Ox 98.2 F 78 29 H 88/52 94 03/11/20 08:00 03/11/20 11:00 03/11/20 11:00 03/11/20 11:00 03/11/20 11:00 General appearance: Present: mild distress, well-nourished HEART Score - HEART Score Troponin: Troponin T < 0.010 ng/mL (0.00-0.029) 02/28/20 16:03 Results - Labs CBC & Chem 7: 03/07/20 04:22 03/07/20 04:22 Labs: Laboratory Last Values WBC 16.6 K/mm3 (4.5-11.0) H 03/07/20 04:22 RBC 4.20 M/mm3 (3.65-5.03) 03/07/20 04:22 Hgb 12.7 gm/dl (10.1-14.3) 03/07/20 04:22 Hct 38.3 % (30.3-42.9) 03/07/20 04:22 MCV 91 fl (79-97) 03/07/20 04:22 MCH 30 pg (28-32) 03/07/20 04:22 MCHC 33 % (30-34) 03/07/20 04:22 RDW 14.0 % (13.2-15.2) 03/07/20 04:22 Plt Count 259 K/mm3 (140-440) 03/07/20 04:22 Lymph % (Auto) 7.9 % (13.4-35.0) L 03/07/20 04:22 [place] % (Auto) 3.5 % (0.0-7.3) 03/07/20 04:22 Eos % (Auto) 0.9 % (0.0-4.3) 03/07/20 04:22 Baso % (Auto) 0.2 % (0.0-1.8) 03/07/20 04:22 Lymph # (Auto) 1.3 K/mm3 (1.2-5.4) 03/07/20 04:22 [place] # (Auto) 0.6 K/mm3 (0.0-0.8) 03/07/20 04:22 Eos # (Auto) 0.2 K/mm3 (0.0-0.4) 03/07/20 04:22 Baso # (Auto) 0.0 K/mm3 (0.0-0.1) 03/07/20 04:22 Add Manual Diff Complete 03/04/20 06:06 Total Counted 100 03/04/20 06:06 Seg Neutrophils % 87.5 % (40.0-70.0) H 03/07/20 04:22 Seg Neuts % (Manual) 88.0 % (40.0-70.0) H 03/04/20 06:06 Lymphocytes % (Manual) 5.0 % (13.4-35.0) L 03/04/20 06:06 Reactive Lymphs % (Man) 1.0 % 03/04/20 06:06 Monocytes % (Manual) 4.0 % (0.0-7.3) 03/04/20 06:06 Eosinophils % (Manual) 1.0 % (0.0-4.3) 03/04/20 06:06 Metamyelocytes % 1.0 % 03/04/20 06:06 Nucleated RBC % Not Reportable 03/04/20 06:06 Seg Neutrophils # 14.5 K/mm3 (1.8-7.7) H 03/07/20 04:22 Seg Neutrophils # Man 15.1 K/mm3 (1.8-7.7) H 03/04/20 06:06 Band Neutrophils # 0.0 K/mm3 03/04/20 06:06 Lymphocytes # (Manual) 0.9 K/mm3 (1.2-5.4) L 03/04/20 06:06 Abs React Lymphs (Man) 0.2 K/mm3 03/04/20 06:06 Monocytes # (Manual) 0.7 K/mm3 (0.0-0.8) 03/04/20 06:06 Eosinophils # (Manual) 0.2 K/mm3 (0.0-0.4) 03/04/20 06:06 Basophils # (Manual) 0.0 K/mm3 (0.0-0.1) 03/04/20 06:06 Metamyelocytes # 0.2 K/mm3 03/04/20 06:06 Myelocytes # 0.0 K/mm3 03/04/20 06:06 Promyelocytes # 0.0 K/mm3 03/04/20 06:06 Blast Cells # 0.0 K/mm3 03/04/20 06:06 WBC Morphology Not Reportable 03/04/20 06:06 Hypersegmented Neuts Not Reportable 03/04/20 06:06 Hyposegmented Neuts Not Reportable 03/04/20 06:06 Hypogranular Neuts Not Reportable 03/04/20 06:06 Smudge Cells Not Reportable 03/04/20 06:06 Toxic Granulation Not Reportable 03/04/20 06:06 Toxic Vacuolation Not Reportable 03/04/20 06:06 Dohle Bodies Not Reportable 03/04/20 06:06 Pelger-Huet Anomaly Not Reportable 03/04/20 06:06 Mian Rods Not Reportable 03/04/20 06:06 Platelet Estimate Consistent w auto 03/04/20 06:06 Clumped Platelets Not Reportable 03/04/20 06:06 Plt Clumps, EDTA Not Reportable 03/04/20 06:06 Large Platelets Not Reportable 03/04/20 06:06 Giant Platelets Not Reportable 03/04/20 06:06 Platelet Satelliting Not Reportable 03/04/20 06:06 Plt Morphology Comment Not Reportable 03/04/20 06:06 RBC Morphology Normal 03/04/20 06:06 Dimorphic RBCs Not Reportable 03/04/20 06:06 Polychromasia Not Reportable 03/04/20 06:06 Hypochromasia Not Reportable 03/04/20 06:06 Poikilocytosis Not Reportable 03/04/20 06:06 Anisocytosis Not Reportable 03/04/20 06:06 Microcytosis Not Reportable 03/04/20 06:06 Macrocytosis Not Reportable 03/04/20 06:06 Spherocytes Not Reportable 03/04/20 06:06 Pappenheimer Bodies Not Reportable 03/04/20 06:06 Sickle Cells Not Reportable 03/04/20 06:06 Target Cells Not Reportable 03/04/20 06:06 Tear Drop Cells Not Reportable 03/04/20 06:06 Ovalocytes Not Reportable 03/04/20 06:06 Helmet Cells Not Reportable 03/04/20 06:06 Weiss-[place] Bodies Not Reportable 03/04/20 06:06 [place] Rings Not Reportable 03/04/20 06:06 [place] Cells Not Reportable 03/04/20 06:06 Bite Cells Not Reportable 03/04/20 06:06 Crenated Cell Not Reportable 03/04/20 06:06 Elliptocytes Not Reportable 03/04/20 06:06 Acanthocytes (Spur) Not Reportable 03/04/20 06:06 Rouleaux Not Reportable 03/04/20 06:06 Hemoglobin C Crystals Not Reportable 03/04/20 06:06 Schistocytes Not Reportable 03/04/20 06:06 Malaria parasites Not Reportable 03/04/20 06:06 Jesus Bodies Not Reportable 03/04/20 06:06 Hem Pathologist Commnt No 03/04/20 06:06 D-Dimer 1170.89 ng/mlDDU (0-234) H 03/05/20 16:48 ABG pH 7.439 pH Units (7.350-7.450) 03/06/20 09:40 POC ABG pCO2 40.0 mmHg (32.0-48.0) 03/01/20 08:53 ABG pCO2 36.8 mm Hg 03/06/20 09:40 POC ABG pO2 71.9 mmHg (83-108) L 03/01/20 08:53 ABG pO2 77.4 mm Hg (80.0-90.0) L 03/06/20 09:40 POC ABG HCO3 28.0 03/01/20 08:53 ABG HCO3 24.4 mmol/L (20.0-26.0) 03/06/20 09:40 ABG O2 Saturation 96.0 % (95.0-99.0) 03/06/20 09:40 ABG O2 Content 18.4 (0.0-44) 03/06/20 09:40 POC ABG Base Excess 4.0 03/01/20 08:53 ABG Base Excess 0.5 mmol/L (-2.0-3.0) 03/06/20 09:40 ABG Hemoglobin 13.8 gm/dl (12.0-16.0) 03/06/20 09:40 ABG Oxyhemoglobin 94.1 (94-98) 03/01/20 08:53 ABG Carboxyhemoglobin 1.1 % (0.0-5.0) 03/06/20 09:40 ABG Methemoglobin 0.4 % (0.0-1.5) 03/06/20 09:40 ABG Sodium 139.8 mmol/L (136.0-145.0) 03/01/20 08:53 ABG Potassium 3.9 mmol/L (3.40-4.50) 03/01/20 08:53 ABG Chloride 105.0 mmol/L (98-107) 03/01/20 08:53 ABG Glucose 147 mg/dL (65-95) H 03/01/20 08:53 Oxyhemoglobin 94.5 % (95.0-99.0) L 03/06/20 09:40 Carboxyhemoglobin 0.2 (0.5-1.5) L 03/01/20 08:53 FiO2 100 % 03/06/20 09:40 Sodium 134 mmol/L (137-145) L 03/07/20 04:22 Potassium 4.4 mmol/L (3.6-5.0) 03/07/20 04:22 Chloride 99.2 mmol/L (98-107) 03/07/20 04:22 Carbon Dioxide 25 mmol/L (22-30) 03/07/20 04:22 Anion Gap 14 mmol/L 03/07/20 04:22 BUN 27 mg/dL (7-17) H 03/07/20 04:22 Creatinine 0.4 mg/dL (0.6-1.2) L 03/07/20 04:22 Estimated GFR > 60 ml/min 03/07/20 04:22 BUN/Creatinine Ratio 68 % 03/07/20 04:22 Glucose 109 mg/dL (65-100) H 03/07/20 04:22 POC Glucose 125 mg/dL (70-105) H 03/10/20 11:23 Lactic Acid 1.00 mmol/L (0.7-2.0) 02/24/20 14:31 Calcium 8.9 mg/dL (8.4-10.2) 03/07/20 04:22 Total Bilirubin 0.50 mg/dL (0.1-1.2) 03/07/20 04:22 Ferritin 319.4 ng/mL (10.0-200.0) H 03/10/20 15:34 Direct Bilirubin < 0.2 mg/dL (0-0.2) 03/01/20 05:23 Indirect Bilirubin 0.2 mg/dL 03/01/20 05:23 AST 19 units/L (5-40) 03/07/20 04:22 ALT 24 units/L (7-56) 03/07/20 04:22 Alkaline Phosphatase 81 units/L (35-129) 03/07/20 04:22 Lactate Dehydrogenase 619 units/L (91-180) H 03/05/20 16:48 Troponin T < 0.010 ng/mL (0.00-0.029) 02/28/20 16:03 C-Reactive Protein 0.30 mg/dL (0.00-1.30) 03/10/20 15:34 NT-Pro-B Natriuret Pep 47.67 pg/mL (0-450) 03/02/20 16:51 Total Protein 6.1 g/dL (6.3-8.2) L 03/07/20 04:22 Albumin 3.1 g/dL (3.9-5) L 03/07/20 04:22 Albumin/Globulin Ratio 1.0 % 03/07/20 04:22 Procalcitonin < 0.05 ng/mL (<0.15) 02/25/20 14:21 Arterial Blood Glucose 147 mg/dL (65-95) H 03/01/20 08:53 Arterial Blood Ionized Calcium 4.7 mg/dL (4.6-5.3) 03/01/20 08:53 Urine Color Yellow (Yellow) 02/24/20 Unknown Urine Turbidity Clear (Clear) 02/24/20 Unknown Urine pH 6.0 (5.0-7.0) 02/24/20 Unknown Ur Specific Clem[place] 1.023 (1.003-1.030) 02/24/20 Unknown Urine Protein 100 mg/dl mg/dL (Negative) 02/24/20 Unknown Urine Glucose (UA) Neg mg/dL (Negative) 02/24/20 Unknown Urine Ketones Neg mg/dL (Negative) 02/24/20 Unknown Urine Blood Neg (Negative) 02/24/20 Unknown Urine Nitrite Neg (Negative) 02/24/20 Unknown Urine Bilirubin Neg (Negative) 02/24/20 Unknown Urine Urobilinogen 2.0 mg/dL (<2.0) 02/24/20 Unknown Ur Leukocyte Esterase Neg (Negative) 02/24/20 Unknown Urine WBC (Auto) 4.0 /HPF (0.0-6.0) 02/24/20 Unknown Urine RBC (Auto) 2.0 /HPF (0.0-6.0) 02/24/20 Unknown U Epithel Cells (Auto) 3.0 /HPF (0-13.0) 02/24/20 Unknown Urine Bacteria (Auto) 1+ /HPF (Negative) 02/24/20 Unknown Urine Mucus 1+ /HPF 02/24/20 Unknown Coronavirus (PCR) Positive (Negative) A 02/26/20 10:45 SARS-CoV-2 IgG Ab Reactive (NonReactive) A 02/28/20 16:03 - Diagnostic Impressions Diagnostic Impressions: Echocardiogram 03/01/20 09:12 Transthoracic Echocardiogram Indication: Eval EF; PA HTN BP: 121/78 HR: 90 Conclusions *Global left ventricular systolic function is normal. *The estimated ejection fraction is 60-65%. *The right ventricular global systolic function is normal. *There is no evidence of aortic regurgitation. *There is trace of mitral regurgitation. *There is trace tricuspid regurgitation. *The right ventricular systolic pressure is calculated at 28 mmHg. *There is trace pulmonic regurgitation. Findings Left Ventricle: The left ventricular chamber size is normal. There is no left ventricular hypertrophy. Global left ventricular wall motion and contractility are within normal limits. Global left ventricular systolic function is normal. The estimated ejection fraction is 60-65%. There is an E to A reversal in the mitral valve flow pattern suggestive of diastolic dysfunction. Left Atrium: The left atrial chamber size is normal. Right Ventricle: The right ventricular cavity size is normal. The right ventricular global systolic function is normal. Right Atrium: The right atrial cavity size is normal. Aortic Valve: There is no evidence of aortic valve thickening. There is no evidence of aortic regurgitation. Mitral Valve: The mitral valve leaflets do not appear thickened. There is trace of mitral regurgitation. Tricuspid Valve: The tricuspid valve leaflets are normal. There is trace tricuspid regurgitation. The right ventricular systolic pressure is calculated at 28 mmHg. Pulmonic Valve: There is no evidence of pulmonic valve thickening. There is trace pulmonic regurgitation. Pericardium: There is no pericardial effusion. Aorta: The aorta appears normal. Venous: The inferior vena cava appears normal in size. Measurements Chambers 2D Name Value Normal Range IVSd (2D) 0.97 cm (0.6 - 1.1) LVPWd (2D) 1.05 cm (0.6 - 1.1) LVIDd (2D) 3.87 cm (3.7 - 5.6) LVIDs (2D) 2.41 cm (2 - 3.8) LV FS (2D) 37.69 % - EF Teichholz (2D) 68.47 % - Ao root diameter (2D) 2.92 cm (2 - 3.7) Volumes/Mass Name Value Normal Range LA ESV SP 4CH (A/L) 32.2 ml - LA ESV SP 2CH (A/L) 24.78 ml - LA ESV BP (A/L) 29.52 ml - LA ESV BP (A/L) index 16.68 ml/m2 - LA ESV SP 4CH (MOD) 29.62 ml - LA ESV SP 2CH (MOD) 23.68 ml - LA ESV BP (MOD) 27.57 ml - LA ESV BP (MOD) index 15.58 ml/m2 - Diastolic/Systolic Function Name Value Normal Range MV E-wave Vmax 0.59 m/sec - MV deceleration time 258.54 msec - MV A-wave Vmax 0.73 m/sec - MV E:A ratio 0.81 ratio - Aortic Valve Name Value Normal Range AV Vmax 1.33 m/sec - AV VTI 22.87 cm - AV peak gradient 7.09 mmHg - AV mean gradient 4.39 mmHg - LVOT diameter 1.52 cm - LVOT Vmax 1.22 m/sec - LVOT VTI 20.85 cm - LVOT peak gradient 5.96 mmHg - LVOT mean gradient 2.91 mmHg - SV LVOT 37.79 ml - VINEET (continuity Vmax) 1.66 cm2 - VINEET (continuity VTI) 1.65 cm2 - Ascending Ao 2.78 cm - Tricuspid Valve Name Value Normal Range TR Vmax 2.48 m/sec - TR peak gradient 25 mmHg - RAP 3 mmHg - RVSP 28 mmHg - IVC diameter 1.77 cm (1.2 - 2.3) Pulmonic Valve/Qp:Qs Name Value Normal Range PV Vmax 0.85 m/sec - PV peak gradient 2.9 mmHg - TX end-diastolic Vmax 1.26 m/sec - PV acceleration time 144.62 msec - [place]/IV: Voiding Method Incontinent IV Catheter Type [Right Peripheral IV Forearm] IV Catheter Type [Right Peripheral IV Antecubital] Active Medications - Current Medications Current Medications: Generic Name Dose Route Start Last Admin Trade Name Freq PRN Reason Stop Dose Admin Acetaminophen 650 mg 02/24/20 15:14 03/11/20 00:13 Acetaminophen 325 Mg Tab PO 650 mg Q4H PRN Administration Pain MILD(1-3)/Fever >100.5/DANGELO Albuterol 2.5 mg 02/24/20 15:14 Albuterol 2.5 Mg/3 Ml Nebu IH Q4HRT PRN Shortness Of Breath Ascorbic Acid 1,000 mg 02/29/20 23:45 03/11/20 09:15 Ascorbic Acid 500 Mg Tab PO 1,000 mg BID UTE Administration Benzonatate 100 mg 02/25/20 22:00 03/11/20 09:16 Benzonatate 100 Mg Cap PO 100 mg BID UTE Administration Cholecalciferol 5,000 unit 03/01/20 10:00 03/11/20 09:16 Cholecalciferol (Vit D3) 5,000 Unit Tab PO 5,000 unit DAILY UTE Administration Dexamethasone 6 mg 03/04/20 14:30 03/11/20 09:16 Dexamethasone 4 Mg/Ml Vial IV 03/12/20 10:01 6 mg Q24HR UTE Administration Enoxaparin Sodium 80 mg 02/29/20 23:45 03/11/20 09:16 Enoxaparin 80 Mg/0.8 Ml Inj SUB-Q 80 mg Q12HR UTE Administration Protocol Famotidine 10 mg 02/24/20 22:00 03/11/20 09:15 Famotidine 10 Mg Tab PO 10 mg BID UTE Administration Hydrocodone Bit/Homatropine Methylb 10 ml 02/26/20 15:00 03/10/20 22:06 Hydrocodone/Homatropine 5-1.5mg /5 Ml Oral Liqd Unit Dose PO 10 ml Q6H PRN Administration Cough Ondansetron HCl 4 mg 02/24/20 15:14 Ondansetron 4 Mg/2 Ml Inj IV Q8H PRN Nausea And Vomiting Sodium Chloride 10 ml 02/24/20 22:00 03/11/20 09:19 Sodium Chloride 0.9% 10 Ml Flush Syringe IV 10 ml BID UTE Administration Sodium Chloride 10 ml 02/24/20 15:14 Sodium Chloride 0.9% 10 Ml Flush Syringe IV PRN PRN LINE FLUSH Tramadol HCl 50 mg 02/29/20 22:10 03/11/20 09:15 Tramadol 50 Mg Tab PO 50 mg Q6H PRN Administration Pain, Moderate (4-6) Nutrition/Malnutrition Assess - Dietary Evaluation Nutrition/Malnutrition Findings: Nutrition Notes Start: 03/02/20 12:47 Freq: Status: Active Protocol: Document 03/02/20 12:47 EN (Rec: 03/02/20 12:53 EN [email or web address]) Co-Sign 03/02/20 12:47 MK Nutrition Notes Need for Assessment generated from: LOS Initial or Follow up Brief Note Current Diagnosis Sepsis Other Pertinent Diagnosis COVID-19+, Pneu, acute respiratory failure Current Diet Cardiac [place] Body Weight (kg) 0 Subjective/Other Information Pt screened for LOS. Unable to reach pt by phone x2 for assessment. RN unsure of current PO intakes for today but states pt has not had any N/V/D. Per chart, 100% meal consumption consistently Nutrition Intervention Anticipated Discharge Needs: Cardiac diet Revisit per MD consult or patient Sign Off request:
--- NOTE | 2020-03-11 19:07 | Progress Note ---
Assessment and Plan PUI-COVID Acute hypoxemic respiratory failure Severe sepsis Bilateral pneumonia HFpEF Morbid obesity - repeat CXR in am - continue BIPAP qhs with prn daytime use - s/p systemic steroids for >/= 10 days - s/p Remdesivir course - accuchecks with glycemic control per SSI for target blood glucose < 180 mg/dL; avoid hypoglycemia - wean supplemental oxygen for target O2 sat's > 92% acutely - VAP bundle addressed - bronchodilators with pulmonary hygiene per RT - avoid nephrotoxins, renally dose all medications - antiinfective's per ID rec's - prn analgesia per pain score - Maintenance of sleep-wake cycle, avoid delirium - aspiration precautions - G.I. & VTE prophylaxis (empiric weight based full dose anticoagulation acu tely) - PT/OT/ROM exercises - continue mobility protocols for pressure ulcer prophylaxis - Monitor hemodynamics closely - continue other care per attending / other consultants - discharge planning ongoing concurrently .... Re-evaluate in am & prn .... transfer to telemetry Ok CONDITION: FAIR PROGNOSIS: GUARDED CODE STATUS: FULL CODE Subjective Date of service: 03/11/20 Principal diagnosis: COVID-19 infection; Ac hypoxemic resp failure; Severe sepsis; PNA; Obesity Interval history: Patient is seen today for: PUI COVID-19; Acute hypoxemic respiratory failure; Severe sepsis; Bilateral pneumonia; Morbid obesity Seen and examined at bedside; 24hour events reviewed; nursing and respiratory care staff consulted; no adverse overnight events reported to me; restring peacefully in bed; doing much better; FiO2 down to 30% with 20 L flow Objective Vital Signs - 12hr 03/11/20 03/11/20 03/11/20 08:00 08:50 09:00 Temperature 98.2 F Pulse Rate 76 90 Respiratory 15 16 Rate Blood Pressure 105/54 107/38 O2 Sat by Pulse 95 96 96 Oximetry 03/11/20 03/11/20 03/11/20 10:00 11:00 12:00 Temperature 98.0 F Pulse Rate 91 H 78 Respiratory 27 H 29 H Rate Blood Pressure 98/42 88/52 O2 Sat by Pulse 94 94 Oximetry 03/11/20 03/11/20 03/11/20 12:01 13:00 13:28 Temperature Pulse Rate 103 H 106 H Respiratory 15 19 Rate Blood Pressure 104/56 106/48 O2 Sat by Pulse 95 96 93 Oximetry 03/11/20 03/11/20 14:01 15:01 Temperature Pulse Rate 108 H 101 H Respiratory 23 18 Rate Blood Pressure 106/48 93/45 O2 Sat by Pulse 97 97 Oximetry Constitutional: no acute distress, alert, other (Slight cough.) Eyes: non-icteric ENT: oropharynx moist Neck: supple, no lymphadenopathy, other (+ large neck circumference) Effort: mildly labored Ascultation: Bilateral: rhonchi Percussion: Bilateral: not dull Cardiovascular: regular rate and rhythm Gastrointestinal: normoactive bowel sounds, soft, non-tender, non-distended Integumentary: normal Extremities: no cyanosis, no edema, pink and warm, pulses normal Neurologic: non-focal exam, pupils equal and round, CN II-XII normal, motor strength normal and Psychiatric: mood appropriate, anxious CBC and BMP: 03/07/20 04:22 03/07/20 04:22 ABG, PT/INR, D-dimer: ABG ABG pH 7.439 pH Units (7.350-7.450) 03/06/20 09:40 POC ABG pCO2 40.0 mmHg (32.0-48.0) 03/01/20 08:53 ABG pCO2 36.8 mm Hg 03/06/20 09:40 POC ABG pO2 71.9 mmHg (83-108) L 03/01/20 08:53 ABG pO2 77.4 mm Hg (80.0-90.0) L 03/06/20 09:40 POC ABG HCO3 28.0 03/01/20 08:53 ABG O2 Saturation 96.0 % (95.0-99.0) 03/06/20 09:40 PT/INR, D-dimer D-Dimer 1170.89 ng/mlDDU (0-234) H 03/05/20 16:48 Abnormal lab findings: Abnormal Labs 02/24/20 02/24/20 02/24/20 12:07 12:07 12:07 WBC RBC MCHC 35 H Lymph % (Auto) Lymph # (Auto) Seg Neutrophils % 76.6 H Seg Neuts % (Manual) Lymphocytes % (Manual) Seg Neutrophils # Seg Neutrophils # Man Lymphocytes # (Manual) Monocytes # (Manual) D-Dimer 236.88 H ABG pH POC ABG pO2 ABG pO2 ABG O2 Saturation ABG Glucose Oxyhemoglobin Carboxyhemoglobin Sodium Potassium 3.4 L Chloride BUN Creatinine Glucose POC Glucose Ferritin AST 42 H ALT Alkaline Phosphatase Lactate Dehydrogenase C-Reactive Protein Total Protein Albumin Arterial Blood Glucose Coronavirus (PCR) SARS-CoV-2 IgG Ab 02/24/20 02/24/20 02/25/20 12:07 12:07 05:16 WBC RBC 3.53 L MCHC Lymph % (Auto) Lymph # (Auto) 1.1 L Seg Neutrophils % 75.0 H Seg Neuts % (Manual) Lymphocytes % (Manual) Seg Neutrophils # Seg Neutrophils # Man Lymphocytes # (Manual) Monocytes # (Manual) D-Dimer ABG pH POC ABG pO2 ABG pO2 ABG O2 Saturation ABG Glucose Oxyhemoglobin Carboxyhemoglobin Sodium Potassium Chloride BUN Creatinine Glucose 101 H POC Glucose Ferritin 200.8 H AST ALT Alkaline Phosphatase Lactate Dehydrogenase 315 H C-Reactive Protein 12.00 H Total Protein Albumin Arterial Blood Glucose Coronavirus (PCR) SARS-CoV-2 IgG Ab 02/25/20 02/25/20 02/25/20 05:16 08:21 11:52 WBC RBC MCHC Lymph % (Auto) Lymph # (Auto) Seg Neutrophils % Seg Neuts % (Manual) Lymphocytes % (Manual) Seg Neutrophils # Seg Neutrophils # Man Lymphocytes # (Manual) Monocytes # (Manual) D-Dimer ABG pH POC ABG pO2 ABG pO2 ABG O2 Saturation ABG Glucose Oxyhemoglobin Carboxyhemoglobin Sodium Potassium Chloride 109.8 H BUN Creatinine 0.4 L Glucose 143 H POC Glucose 123 H 133 H Ferritin AST ALT Alkaline Phosphatase Lactate Dehydrogenase C-Reactive Protein Total Protein Albumin Arterial Blood Glucose Coronavirus (PCR) SARS-CoV-2 IgG Ab 02/25/20 02/25/20 02/25/20 14:21 14:21 14:21 WBC RBC MCHC Lymph % (Auto) Lymph # (Auto) Seg Neutrophils % Seg Neuts % (Manual) Lymphocytes % (Manual) Seg Neutrophils # Seg Neutrophils # Man Lymphocytes # (Manual) Monocytes # (Manual) D-Dimer 396.96 H ABG pH POC ABG pO2 ABG pO2 ABG O2 Saturation ABG Glucose Oxyhemoglobin Carboxyhemoglobin Sodium Potassium Chloride BUN Creatinine Glucose 163 H POC Glucose Ferritin 335.1 H AST ALT Alkaline Phosphatase Lactate Dehydrogenase 406 H C-Reactive Protein 6.10 H Total Protein Albumin Arterial Blood Glucose Coronavirus (PCR) SARS-CoV-2 IgG Ab 02/25/20 02/25/20 02/26/20 16:17 22:45 07:55 WBC RBC MCHC Lymph % (Auto) Lymph # (Auto) Seg Neutrophils % Seg Neuts % (Manual) Lymphocytes % (Manual) Seg Neutrophils # Seg Neutrophils # Man Lymphocytes # (Manual) Monocytes # (Manual) D-Dimer ABG pH POC ABG pO2 ABG pO2 ABG O2 Saturation ABG Glucose Oxyhemoglobin Carboxyhemoglobin Sodium Potassium Chloride BUN Creatinine Glucose POC Glucose 124 H 154 H 124 H Ferritin AST ALT Alkaline Phosphatase Lactate Dehydrogenase C-Reactive Protein Total Protein Albumin Arterial Blood Glucose Coronavirus (PCR) SARS-CoV-2 IgG Ab 02/26/20 02/26/20 02/26/20 10:45 12:10 16:51 WBC RBC MCHC Lymph % (Auto) Lymph # (Auto) Seg Neutrophils % Seg Neuts % (Manual) Lymphocytes % (Manual) Seg Neutrophils # Seg Neutrophils # Man Lymphocytes # (Manual) Monocytes # (Manual) D-Dimer ABG pH POC ABG pO2 ABG pO2 ABG O2 Saturation ABG Glucose Oxyhemoglobin Carboxyhemoglobin Sodium Potassium Chloride BUN Creatinine Glucose POC Glucose 121 H 129 H Ferritin AST ALT Alkaline Phosphatase Lactate Dehydrogenase C-Reactive Protein Total Protein Albumin Arterial Blood Glucose Coronavirus (PCR) Positive A SARS-CoV-2 IgG Ab 02/26/20 02/27/20 02/27/20 22:00 07:58 12:04 WBC RBC MCHC Lymph % (Auto) Lymph # (Auto) Seg Neutrophils % Seg Neuts % (Manual) Lymphocytes % (Manual) Seg Neutrophils # Seg Neutrophils # Man Lymphocytes # (Manual) Monocytes # (Manual) D-Dimer ABG pH POC ABG pO2 ABG pO2 ABG O2 Saturation ABG Glucose Oxyhemoglobin Carboxyhemoglobin Sodium Potassium Chloride BUN Creatinine Glucose POC Glucose 134 H 115 H 146 H Ferritin AST ALT Alkaline Phosphatase Lactate Dehydrogenase C-Reactive Protein Total Protein Albumin Arterial Blood Glucose Coronavirus (PCR) SARS-CoV-2 IgG Ab 02/27/20 02/28/20 02/28/20 17:21 16:03 16:03 WBC RBC MCHC Lymph % (Auto) Lymph # (Auto) Seg Neutrophils % Seg Neuts % (Manual) Lymphocytes % (Manual) Seg Neutrophils # Seg Neutrophils # Man Lymphocytes # (Manual) Monocytes # (Manual) D-Dimer 995.51 H ABG pH POC ABG pO2 ABG pO2 ABG O2 Saturation ABG Glucose Oxyhemoglobin Carboxyhemoglobin Sodium Potassium Chloride BUN Creatinine Glucose POC Glucose 136 H Ferritin 464.3 H AST ALT Alkaline Phosphatase Lactate Dehydrogenase C-Reactive Protein Total Protein Albumin Arterial Blood Glucose Coronavirus (PCR) SARS-CoV-2 IgG Ab 02/28/20 02/28/20 02/28/20 16:03 16:03 16:03 WBC RBC MCHC Lymph % (Auto) Lymph # (Auto) Seg Neutrophils % Seg Neuts % (Manual) Lymphocytes % (Manual) Seg Neutrophils # Seg Neutrophils # Man Lymphocytes # (Manual) Monocytes # (Manual) D-Dimer ABG pH POC ABG pO2 ABG pO2 ABG O2 Saturation ABG Glucose Oxyhemoglobin Carboxyhemoglobin Sodium Potassium Chloride BUN 23 H Creatinine 0.4 L Glucose 120 H POC Glucose Ferritin AST 72 H ALT 117 H Alkaline Phosphatase 137 H Lactate Dehydrogenase 779 H C-Reactive Protein 6.10 H Total Protein Albumin 3.0 L Arterial Blood Glucose Coronavirus (PCR) SARS-CoV-2 IgG Ab Reactive A 02/28/20 02/29/20 02/29/20 22:06 07:38 11:11 WBC RBC MCHC Lymph % (Auto) Lymph # (Auto) Seg Neutrophils % Seg Neuts % (Manual) Lymphocytes % (Manual) Seg Neutrophils # Seg Neutrophils # Man Lymphocytes # (Manual) Monocytes # (Manual) D-Dimer ABG pH POC ABG pO2 ABG pO2 ABG O2 Saturation ABG Glucose Oxyhemoglobin Carboxyhemoglobin Sodium Potassium Chloride BUN Creatinine Glucose POC Glucose 119 H 121 H 129 H Ferritin AST ALT Alkaline Phosphatase Lactate Dehydrogenase C-Reactive Protein Total Protein Albumin Arterial Blood Glucose Coronavirus (PCR) SARS-CoV-2 IgG Ab 02/29/20 02/29/20 03/01/20 15:58 22:02 05:23 WBC RBC MCHC Lymph % (Auto) Lymph # (Auto) Seg Neutrophils % Seg Neuts % (Manual) Lymphocytes % (Manual) Seg Neutrophils # Seg Neutrophils # Man Lymphocytes # (Manual) Monocytes # (Manual) D-Dimer 1841.84 H ABG pH POC ABG pO2 ABG pO2 ABG O2 Saturation ABG Glucose Oxyhemoglobin Carboxyhemoglobin Sodium Potassium Chloride BUN Creatinine Glucose POC Glucose 118 H 141 H Ferritin AST ALT Alkaline Phosphatase Lactate Dehydrogenase C-Reactive Protein Total Protein Albumin Arterial Blood Glucose Coronavirus (PCR) SARS-CoV-2 IgG Ab 03/01/20 03/01/20 03/01/20 05:23 05:23 05:23 WBC 17.6 H RBC MCHC Lymph % (Auto) Lymph # (Auto) Seg Neutrophils % Seg Neuts % (Manual) 96.0 H Lymphocytes % (Manual) 2.0 L Seg Neutrophils # Seg Neutrophils # Man 16.9 H Lymphocytes # (Manual) 0.4 L Monocytes # (Manual) D-Dimer ABG pH POC ABG pO2 ABG pO2 ABG O2 Saturation ABG Glucose Oxyhemoglobin Carboxyhemoglobin Sodium Potassium Chloride BUN 19 H Creatinine 0.3 L Glucose 145 H POC Glucose Ferritin 323.9 H AST ALT 63 H Alkaline Phosphatase 132 H Lactate Dehydrogenase 746 H C-Reactive Protein 6.80 H Total Protein Albumin 2.9 L Arterial Blood Glucose Coronavirus (PCR) SARS-CoV-2 IgG Ab 03/01/20 03/01/20 03/01/20 06:30 08:53 11:07 WBC RBC MCHC Lymph % (Auto) Lymph # (Auto) Seg Neutrophils % Seg Neuts % (Manual) Lymphocytes % (Manual) Seg Neutrophils # Seg Neutrophils # Man Lymphocytes # (Manual) Monocytes # (Manual) D-Dimer ABG pH 7.463 H POC ABG pO2 71.9 L ABG pO2 ABG O2 Saturation ABG Glucose 147 H Oxyhemoglobin Carboxyhemoglobin 0.2 L Sodium Potassium Chloride BUN Creatinine Glucose POC Glucose 132 H 126 H Ferritin AST ALT Alkaline Phosphatase Lactate Dehydrogenase C-Reactive Protein Total Protein Albumin Arterial Blood Glucose 147 H Coronavirus (PCR) SARS-CoV-2 IgG Ab 03/01/20 03/01/20 03/02/20 15:50 21:24 08:08 WBC RBC MCHC Lymph % (Auto) Lymph # (Auto) Seg Neutrophils % Seg Neuts % (Manual) Lymphocytes % (Manual) Seg Neutrophils # Seg Neutrophils # Man Lymphocytes # (Manual) Monocytes # (Manual) D-Dimer ABG pH POC ABG pO2 ABG pO2 ABG O2 Saturation ABG Glucose Oxyhemoglobin Carboxyhemoglobin Sodium Potassium Chloride BUN Creatinine Glucose POC Glucose 122 H 142 H 152 H Ferritin AST ALT Alkaline Phosphatase Lactate Dehydrogenase C-Reactive Protein Total Protein Albumin Arterial Blood Glucose Coronavirus (PCR) SARS-CoV-2 IgG Ab 03/02/20 03/02/20 03/02/20 11:41 16:51 21:56 WBC RBC MCHC Lymph % (Auto) Lymph # (Auto) Seg Neutrophils % Seg Neuts % (Manual) Lymphocytes % (Manual) Seg Neutrophils # Seg Neutrophils # Man Lymphocytes # (Manual) Monocytes # (Manual) D-Dimer ABG pH POC ABG pO2 ABG pO2 ABG O2 Saturation ABG Glucose Oxyhemoglobin Carboxyhemoglobin Sodium Potassium Chloride BUN Creatinine Glucose POC Glucose 136 H 137 H 126 H Ferritin AST ALT Alkaline Phosphatase Lactate Dehydrogenase C-Reactive Protein Total Protein Albumin Arterial Blood Glucose Coronavirus (PCR) SARS-CoV-2 IgG Ab 03/03/20 03/03/20 03/03/20 08:05 13:10 19:32 WBC RBC MCHC Lymph % (Auto) Lymph # (Auto) Seg Neutrophils % Seg Neuts % (Manual) Lymphocytes % (Manual) Seg Neutrophils # Seg Neutrophils # Man Lymphocytes # (Manual) Monocytes # (Manual) D-Dimer ABG pH POC ABG pO2 ABG pO2 ABG O2 Saturation ABG Glucose Oxyhemoglobin Carboxyhemoglobin Sodium Potassium Chloride BUN 27 H Creatinine 0.5 L D Glucose 200 H POC Glucose 147 H 114 H Ferritin AST ALT Alkaline Phosphatase Lactate Dehydrogenase C-Reactive Protein Total Protein Albumin 3.1 L Arterial Blood Glucose Coronavirus (PCR) SARS-CoV-2 IgG Ab 03/03/20 03/03/20 03/03/20 19:32 19:39 22:44 WBC 20.3 H RBC MCHC Lymph % (Auto) Lymph # (Auto) Seg Neutrophils % Seg Neuts % (Manual) 90.0 H Lymphocytes % (Manual) 4.0 L Seg Neutrophils # Seg Neutrophils # Man 18.3 H Lymphocytes # (Manual) 0.8 L Monocytes # (Manual) 1.2 H D-Dimer ABG pH POC ABG pO2 ABG pO2 ABG O2 Saturation ABG Glucose Oxyhemoglobin Carboxyhemoglobin Sodium Potassium Chloride BUN Creatinine Glucose POC Glucose 186 H 159 H Ferritin AST ALT Alkaline Phosphatase Lactate Dehydrogenase C-Reactive Protein Total Protein Albumin Arterial Blood Glucose Coronavirus (PCR) SARS-CoV-2 IgG Ab 03/04/20 03/04/20 03/04/20 06:06 06:06 07:52 WBC 17.2 H RBC MCHC Lymph % (Auto) Lymph # (Auto) Seg Neutrophils % Seg Neuts % (Manual) 88.0 H Lymphocytes % (Manual) 5.0 L Seg Neutrophils # 15.3 H Seg Neutrophils # Man 15.1 H Lymphocytes # (Manual) 0.9 L Monocytes # (Manual) D-Dimer ABG pH POC ABG pO2 ABG pO2 ABG O2 Saturation ABG Glucose Oxyhemoglobin Carboxyhemoglobin Sodium Potassium Chloride BUN 31 H Creatinine 0.4 L Glucose 144 H POC Glucose 131 H Ferritin AST ALT Alkaline Phosphatase Lactate Dehydrogenase C-Reactive Protein Total Protein Albumin 3.0 L Arterial Blood Glucose Coronavirus (PCR) SARS-CoV-2 IgG Ab 03/04/20 03/04/20 03/04/20 11:30 11:40 16:21 WBC RBC MCHC Lymph % (Auto) Lymph # (Auto) Seg Neutrophils % Seg Neuts % (Manual) Lymphocytes % (Manual) Seg Neutrophils # Seg Neutrophils # Man Lymphocytes # (Manual) Monocytes # (Manual) D-Dimer ABG pH 7.489 H POC ABG pO2 ABG pO2 54.6 L ABG O2 Saturation 90.4 L ABG Glucose Oxyhemoglobin 89.1 L Carboxyhemoglobin Sodium Potassium Chloride BUN Creatinine Glucose POC Glucose 121 H 155 H Ferritin AST ALT Alkaline Phosphatase Lactate Dehydrogenase C-Reactive Protein Total Protein Albumin Arterial Blood Glucose Coronavirus (PCR) SARS-CoV-2 IgG Ab 03/05/20 03/05/20 03/05/20 12:01 16:48 16:48 WBC RBC MCHC Lymph % (Auto) Lymph # (Auto) Seg Neutrophils % Seg Neuts % (Manual) Lymphocytes % (Manual) Seg Neutrophils # Seg Neutrophils # Man Lymphocytes # (Manual) Monocytes # (Manual) D-Dimer 1170.89 H ABG pH POC ABG pO2 ABG pO2 ABG O2 Saturation ABG Glucose Oxyhemoglobin Carboxyhemoglobin Sodium Potassium Chloride BUN Creatinine Glucose POC Glucose 116 H Ferritin 348.4 H AST ALT Alkaline Phosphatase Lactate Dehydrogenase C-Reactive Protein Total Protein Albumin Arterial Blood Glucose Coronavirus (PCR) SARS-CoV-2 IgG Ab 03/05/20 03/05/20 03/06/20 16:48 17:40 09:40 WBC RBC MCHC Lymph % (Auto) Lymph # (Auto) Seg Neutrophils % Seg Neuts % (Manual) Lymphocytes % (Manual) Seg Neutrophils # Seg Neutrophils # Man Lymphocytes # (Manual) Monocytes # (Manual) D-Dimer ABG pH POC ABG pO2 ABG pO2 77.4 L ABG O2 Saturation ABG Glucose Oxyhemoglobin 94.5 L Carboxyhemoglobin Sodium Potassium Chloride BUN Creatinine Glucose POC Glucose 233 H Ferritin AST ALT Alkaline Phosphatase Lactate Dehydrogenase 619 H C-Reactive Protein 3.50 H Total Protein Albumin Arterial Blood Glucose Coronavirus (PCR) SARS-CoV-2 IgG Ab 03/06/20 03/06/20 03/07/20 11:52 17:05 04:22 WBC 16.6 H RBC MCHC Lymph % (Auto) 7.9 L Lymph # (Auto) Seg Neutrophils % 87.5 H Seg Neuts % (Manual) Lymphocytes % (Manual) Seg Neutrophils # 14.5 H Seg Neutrophils # Man Lymphocytes # (Manual) Monocytes # (Manual) D-Dimer ABG pH POC ABG pO2 ABG pO2 ABG O2 Saturation ABG Glucose Oxyhemoglobin Carboxyhemoglobin Sodium Potassium Chloride BUN Creatinine Glucose POC Glucose 168 H 163 H Ferritin AST ALT Alkaline Phosphatase Lactate Dehydrogenase C-Reactive Protein Total Protein Albumin Arterial Blood Glucose Coronavirus (PCR) SARS-CoV-2 IgG Ab 03/07/20 03/07/20 03/07/20 04:22 11:27 16:55 WBC RBC MCHC Lymph % (Auto) Lymph # (Auto) Seg Neutrophils % Seg Neuts % (Manual) Lymphocytes % (Manual) Seg Neutrophils # Seg Neutrophils # Man Lymphocytes # (Manual) Monocytes # (Manual) D-Dimer ABG pH POC ABG pO2 ABG pO2 ABG O2 Saturation ABG Glucose Oxyhemoglobin Carboxyhemoglobin Sodium 134 L Potassium Chloride BUN 27 H Creatinine 0.4 L Glucose 109 H POC Glucose 108 H 140 H Ferritin AST ALT Alkaline Phosphatase Lactate Dehydrogenase C-Reactive Protein Total Protein 6.1 L Albumin 3.1 L Arterial Blood Glucose Coronavirus (PCR) SARS-CoV-2 IgG Ab 03/08/20 03/08/20 03/09/20 17:17 18:37 12:10 WBC RBC MCHC Lymph % (Auto) Lymph # (Auto) Seg Neutrophils % Seg Neuts % (Manual) Lymphocytes % (Manual) Seg Neutrophils # Seg Neutrophils # Man Lymphocytes # (Manual) Monocytes # (Manual) D-Dimer ABG pH POC ABG pO2 ABG pO2 ABG O2 Saturation ABG Glucose Oxyhemoglobin Carboxyhemoglobin Sodium Potassium Chloride BUN Creatinine Glucose POC Glucose 145 H 231 H 115 H Ferritin AST ALT Alkaline Phosphatase Lactate Dehydrogenase C-Reactive Protein Total Protein Albumin Arterial Blood Glucose Coronavirus (PCR) SARS-CoV-2 IgG Ab 03/10/20 03/10/20 11:23 15:34 WBC RBC MCHC Lymph % (Auto) Lymph # (Auto) Seg Neutrophils % Seg Neuts % (Manual) Lymphocytes % (Manual) Seg Neutrophils # Seg Neutrophils # Man Lymphocytes # (Manual) Monocytes # (Manual) D-Dimer ABG pH POC ABG pO2 ABG pO2 ABG O2 Saturation ABG Glucose Oxyhemoglobin Carboxyhemoglobin Sodium Potassium Chloride BUN Creatinine Glucose POC Glucose 125 H Ferritin 319.4 H AST ALT Alkaline Phosphatase Lactate Dehydrogenase C-Reactive Protein Total Protein Albumin Arterial Blood Glucose Coronavirus (PCR) SARS-CoV-2 IgG Ab Chest x-ray: other (none today) Allied health notes reviewed: nursing
[2020-03-11] MEDS: MORPHINE 2 MG/1 ML INJ IV PRN (20:25)
[2020-03-11] MEDS: HYDROcodone/HOMATROPINE 5-1.5MG /5 ML ORAL LIQD UNIT DOSE PO PRN (20:25)
[2020-03-12] MEDS: ASCORBIC ACID 500 MG TAB PO SCH ×3 (00:02→22:27)
[2020-03-12] MEDS: ENOXAPARIN 80 MG/0.8 ML INJ SUB-Q SCH ×3 (00:02→23:08)
[2020-03-12] MEDS: BENZONATATE 100 MG CAP PO SCH ×3 (00:02→22:27)
[2020-03-12] MEDS: FAMOTIDINE 10 MG TAB PO SCH ×3 (00:03→22:27)
[2020-03-12] MEDS: CHOLECALCIFEROL (VIT D3) 5,000 UNIT TAB PO SCH (09:32)
[2020-03-12] MEDS: dexAMETHasone 4 MG/ML VIAL IV SCH (09:32)
--- NOTE | 2020-03-12 09:45 | Progress Note ---
Assessment and Plan Assessment and plan: 50 YO Female with Obesity Hypoventilation Syndrome presents to ED for evaluation. Patient states that she has "been feeling sick" for the past 2 weeks with persistent symptoms over the same timeframe. Patient was seen and evaluated by her primary care physician and treated with oral antibiotics for outpatient pneumonia. Patient states that she has experienced persistent symptoms in spite of of compliance with medication. Patient reports fever, dry cough, shortness of breath, decreased exercise tolerance, nausea, multiple episodes of vomiting, multiple loose stools, loss of sense of smell, loss of sense of taste, fatigue, malaise, body aches. Patient transported to [facility] via private vehicle for further care and evaluation of the aforementioned symptoms. Patient seen and evaluated in the emergency department. All lab and imaging studies reviewed. Patient found to have a fever to 102.1 F, as well as a pulse oximetry of 88% with exertion on room air which is consistent with acute hypoxem ic respiratory failure. Patient underwent chest x-ray which revealed bilateral pneumonia. Patient admitted to medical floor and initiated on pneumonia protocol as well as coronavirus protocol. Coronavirus PCR ordered in the emergency department and is pending at time of admission. Patient acknowledges fever, but denies chest pain, palpitation, skin rash, recent ill contacts, trauma, or known exposure to COVID-19. No medication listed at time of admission. No prior admission for review. 02/29/2020 Patient alert, awake. Having cough. Having mild shortness of breath at rest. Patient is on vapotherm, FIO2 100% and O2 saturation 90%. Patient switched to BIPAP. But patient not using it.Patient afebrile. No leukocytosis. Complaining headache at times.Patients [place] virus PCR is Positive. Patients chest xray done 02/24/20 reported Patchy bilateral pulmonary opacities are concerning for infection/pneumonia. 03/01/2020 03/01/2020 Patient on high flow oxygen and BiPAP 03/02/2020 Patient still on high flow oxygen and BiPAP 03/03/2020 Patient with worsening inflammatory markers Chest x-ray worsening with extensive consolidations Patient will be transferred to ICU 03/04/2020 Patient on high flow oxygen-40 L Worsening pulmonary alveolar infiltrates Possible intubation !05/07/19 On High flow oxygen 03/07/2020 Patient still on high flow oxygen Not intubated 03/08- on HFNC 03/10: Clinically showing some improvement as HFNC is improving. Continue weaning as tolerated 03/11: Continue supportive care, weaning oxygen as tolerated. Can transfer to 3rd floor if weaned off HFNC. 03/12: Patient respiratory meier continues to improve, did have some abdominal pain with FOOD, Will check LFT, ammonia, and Lipase and abdominal ultrasound, considering patient is 35% FIO2, will transfer to [facility]. (1) Acute hypoxemic respiratory failure Current Visit: Yes Status: Acute Plan to address problem: Patient on 40 L high flow oxygen Worsening clinical picture Patient may need intubation Patient to transfer to ICU Dr. Love discussed the case with me Patient transferred to ICU Patient on high flow oxygen Trying to avoid intubation (2) Covid pneumonia Current Visit: Yes Status: Acute Plan to address problem: Patient is coronavirus PCR positive on 02/26/2020 Patient is also SARS-CoV-2 IgG positive Patient is not a candidate for Covid convalescent plasma Steroids Continue remdesivir for 5 days-today is day 5 of day 5 Continue anticoagulation Prone positioning as possible High flow oxygen (3) Pneumonia Current Visit: Yes Status: Acute Qualifiers: Laterality: bilateral Plan to address problem: Pneumonia protocol: Chest x-ray, CBC, CMP, supplemental oxygen, nebulizer therapy, pulse oximetry, IV antibiotic therapy, pulmonary toilet, blood culture. (4) severe sepsis Remains hypoxic likely due to bilateral pneumonia Continue IV antibiotics (5) Abdominal Pain (6) DVT prophylaxis Current Visit: Yes Status: Acute Plan to address problem: High-dose Lovenox History Interval history: Patient seen and examined, discussed with Nursing staff, clinically showing improvement, continues to prone herself, no new issues overnight. Was reported that the patient did have some pain with food. She still has some cough which is improving gradually. She is down to 30% FiO2. Hospitalist Physical - Physical exam Narrative exam: General appearance: Present: well-nourished, ON High Flow - EENT Eyes: PERRL, EOM intact ENT: hearing intact, clear oral mucosa Ears: bilateral: normal - Neck Neck: supple, normal ROM - Respiratory Respiratory effort: normal Respiratory: bilateral: CTA, rhonchi - Breasts Breasts: normal - Cardiovascular Heart rate: 78 Rhythm: regular Heart Sounds: Present: S1 & S2. Absent: gallop, rub Extremities: pulses intact, No edema, normal color, Full ROM - Gastrointestinal General gastrointestinal: Present: soft, non-tender, non-distended, normal bowel sounds - Genitourinary Female genitourinary: normal - Integumentary Integumentary: clear, warm, dry - Musculoskeletal Musculoskeletal: 1, strength equal bilaterally - Neurologic Neurologic: moves all extremities - Psychiatric Psychiatric: memory intact, appropriate mood/affect, intact judgment & insight - Constitutional Vitals: Temp Pulse Resp BP Pulse Ox 98.5 F 96 H 18 91/45 96 03/12/20 04:00 03/12/20 08:00 03/12/20 08:00 03/12/20 08:00 03/12/20 08:00 General appearance: Present: mild distress, well-nourished HEART Score - HEART Score Troponin: Troponin T < 0.010 ng/mL (0.00-0.029) 02/28/20 16:03 Results - Labs CBC & Chem 7: 03/07/20 04:22 03/07/20 04:22 Labs: Laboratory Last Values WBC 16.6 K/mm3 (4.5-11.0) H 03/07/20 04:22 RBC 4.20 M/mm3 (3.65-5.03) 03/07/20 04:22 Hgb 12.7 gm/dl (10.1-14.3) 03/07/20 04:22 Hct 38.3 % (30.3-42.9) 03/07/20 04:22 MCV 91 fl (79-97) 03/07/20 04:22 MCH 30 pg (28-32) 03/07/20 04:22 MCHC 33 % (30-34) 03/07/20 04:22 RDW 14.0 % (13.2-15.2) 03/07/20 04:22 Plt Count 259 K/mm3 (140-440) 03/07/20 04:22 Lymph % (Auto) 7.9 % (13.4-35.0) L 03/07/20 04:22 [place] % (Auto) 3.5 % (0.0-7.3) 03/07/20 04:22 Eos % (Auto) 0.9 % (0.0-4.3) 03/07/20 04:22 Baso % (Auto) 0.2 % (0.0-1.8) 03/07/20 04:22 Lymph # (Auto) 1.3 K/mm3 (1.2-5.4) 03/07/20 04:22 [place] # (Auto) 0.6 K/mm3 (0.0-0.8) 03/07/20 04:22 Eos # (Auto) 0.2 K/mm3 (0.0-0.4) 03/07/20 04:22 Baso # (Auto) 0.0 K/mm3 (0.0-0.1) 03/07/20 04:22 Add Manual Diff Complete 03/04/20 06:06 Total Counted 100 03/04/20 06:06 Seg Neutrophils % 87.5 % (40.0-70.0) H 03/07/20 04:22 Seg Neuts % (Manual) 88.0 % (40.0-70.0) H 03/04/20 06:06 Lymphocytes % (Manual) 5.0 % (13.4-35.0) L 03/04/20 06:06 Reactive Lymphs % (Man) 1.0 % 03/04/20 06:06 Monocytes % (Manual) 4.0 % (0.0-7.3) 03/04/20 06:06 Eosinophils % (Manual) 1.0 % (0.0-4.3) 03/04/20 06:06 Metamyelocytes % 1.0 % 03/04/20 06:06 Nucleated RBC % Not Reportable 03/04/20 06:06 Seg Neutrophils # 14.5 K/mm3 (1.8-7.7) H 03/07/20 04:22 Seg Neutrophils # Man 15.1 K/mm3 (1.8-7.7) H 03/04/20 06:06 Band Neutrophils # 0.0 K/mm3 03/04/20 06:06 Lymphocytes # (Manual) 0.9 K/mm3 (1.2-5.4) L 03/04/20 06:06 Abs React Lymphs (Man) 0.2 K/mm3 03/04/20 06:06 Monocytes # (Manual) 0.7 K/mm3 (0.0-0.8) 03/04/20 06:06 Eosinophils # (Manual) 0.2 K/mm3 (0.0-0.4) 03/04/20 06:06 Basophils # (Manual) 0.0 K/mm3 (0.0-0.1) 03/04/20 06:06 Metamyelocytes # 0.2 K/mm3 03/04/20 06:06 Myelocytes # 0.0 K/mm3 03/04/20 06:06 Promyelocytes # 0.0 K/mm3 03/04/20 06:06 Blast Cells # 0.0 K/mm3 03/04/20 06:06 WBC Morphology Not Reportable 03/04/20 06:06 Hypersegmented Neuts Not Reportable 03/04/20 06:06 Hyposegmented Neuts Not Reportable 03/04/20 06:06 Hypogranular Neuts Not Reportable 03/04/20 06:06 Smudge Cells Not Reportable 03/04/20 06:06 Toxic Granulation Not Reportable 03/04/20 06:06 Toxic Vacuolation Not Reportable 03/04/20 06:06 Dohle Bodies Not Reportable 03/04/20 06:06 Pelger-Huet Anomaly Not Reportable 03/04/20 06:06 Mian Rods Not Reportable 03/04/20 06:06 Platelet Estimate Consistent w auto 03/04/20 06:06 Clumped Platelets Not Reportable 03/04/20 06:06 Plt Clumps, EDTA Not Reportable 03/04/20 06:06 Large Platelets Not Reportable 03/04/20 06:06 Giant Platelets Not Reportable 03/04/20 06:06 Platelet Satelliting Not Reportable 03/04/20 06:06 Plt Morphology Comment Not Reportable 03/04/20 06:06 RBC Morphology Normal 03/04/20 06:06 Dimorphic RBCs Not Reportable 03/04/20 06:06 Polychromasia Not Reportable 03/04/20 06:06 Hypochromasia Not Reportable 03/04/20 06:06 Poikilocytosis Not Reportable 03/04/20 06:06 Anisocytosis Not Reportable 03/04/20 06:06 Microcytosis Not Reportable 03/04/20 06:06 Macrocytosis Not Reportable 03/04/20 06:06 Spherocytes Not Reportable 03/04/20 06:06 Pappenheimer Bodies Not Reportable 03/04/20 06:06 Sickle Cells Not Reportable 03/04/20 06:06 Target Cells Not Reportable 03/04/20 06:06 Tear Drop Cells Not Reportable 03/04/20 06:06 Ovalocytes Not Reportable 03/04/20 06:06 Helmet Cells Not Reportable 03/04/20 06:06 Weiss-[place] Bodies Not Reportable 03/04/20 06:06 [place] Rings Not Reportable 03/04/20 06:06 Nunu Cells Not Reportable 03/04/20 06:06 Bite Cells Not Reportable 03/04/20 06:06 Crenated Cell Not Reportable 03/04/20 06:06 Elliptocytes Not Reportable 03/04/20 06:06 Acanthocytes (Spur) Not Reportable 03/04/20 06:06 Rouleaux Not Reportable 03/04/20 06:06 Hemoglobin C Crystals Not Reportable 03/04/20 06:06 Schistocytes Not Reportable 03/04/20 06:06 Malaria parasites Not Reportable 03/04/20 06:06 Jesus Bodies Not Reportable 03/04/20 06:06 Hem Pathologist Commnt No 03/04/20 06:06 D-Dimer 1170.89 ng/mlDDU (0-234) H 03/05/20 16:48 ABG pH 7.439 pH Units (7.350-7.450) 03/06/20 09:40 POC ABG pCO2 40.0 mmHg (32.0-48.0) 03/01/20 08:53 ABG pCO2 36.8 mm Hg 03/06/20 09:40 POC ABG pO2 71.9 mmHg (83-108) L 03/01/20 08:53 ABG pO2 77.4 mm Hg (80.0-90.0) L 03/06/20 09:40 POC ABG HCO3 28.0 03/01/20 08:53 ABG HCO3 24.4 mmol/L (20.0-26.0) 03/06/20 09:40 ABG O2 Saturation 96.0 % (95.0-99.0) 03/06/20 09:40 ABG O2 Content 18.4 (0.0-44) 03/06/20 09:40 POC ABG Base Excess 4.0 03/01/20 08:53 ABG Base Excess 0.5 mmol/L (-2.0-3.0) 03/06/20 09:40 ABG Hemoglobin 13.8 gm/dl (12.0-16.0) 03/06/20 09:40 ABG Oxyhemoglobin 94.1 (94-98) 03/01/20 08:53 ABG Carboxyhemoglobin 1.1 % (0.0-5.0) 03/06/20 09:40 ABG Methemoglobin 0.4 % (0.0-1.5) 03/06/20 09:40 ABG Sodium 139.8 mmol/L (136.0-145.0) 03/01/20 08:53 ABG Potassium 3.9 mmol/L (3.40-4.50) 03/01/20 08:53 ABG Chloride 105.0 mmol/L (98-107) 03/01/20 08:53 ABG Glucose 147 mg/dL (65-95) H 03/01/20 08:53 Oxyhemoglobin 94.5 % (95.0-99.0) L 03/06/20 09:40 Carboxyhemoglobin 0.2 (0.5-1.5) L 03/01/20 08:53 FiO2 100 % 03/06/20 09:40 Sodium 134 mmol/L (137-145) L 03/07/20 04:22 Potassium 4.4 mmol/L (3.6-5.0) 03/07/20 04:22 Chloride 99.2 mmol/L (98-107) 03/07/20 04:22 Carbon Dioxide 25 mmol/L (22-30) 03/07/20 04:22 Anion Gap 14 mmol/L 03/07/20 04:22 BUN 27 mg/dL (7-17) H 03/07/20 04:22 Creatinine 0.4 mg/dL (0.6-1.2) L 03/07/20 04:22 Estimated GFR > 60 ml/min 03/07/20 04:22 BUN/Creatinine Ratio 68 % 03/07/20 04:22 Glucose 109 mg/dL (65-100) H 03/07/20 04:22 POC Glucose 125 mg/dL (70-105) H 03/10/20 11:23 Lactic Acid 1.00 mmol/L (0.7-2.0) 02/24/20 14:31 Calcium 8.9 mg/dL (8.4-10.2) 03/07/20 04:22 Total Bilirubin 0.50 mg/dL (0.1-1.2) 03/07/20 04:22 Ferritin 319.4 ng/mL (10.0-200.0) H 03/10/20 15:34 Direct Bilirubin < 0.2 mg/dL (0-0.2) 03/01/20 05:23 Indirect Bilirubin 0.2 mg/dL 03/01/20 05:23 AST 19 units/L (5-40) 03/07/20 04:22 ALT 24 units/L (7-56) 03/07/20 04:22 Alkaline Phosphatase 81 units/L (35-129) 03/07/20 04:22 Lactate Dehydrogenase 619 units/L (91-180) H 03/05/20 16:48 Troponin T < 0.010 ng/mL (0.00-0.029) 02/28/20 16:03 C-Reactive Protein 0.30 mg/dL (0.00-1.30) 03/10/20 15:34 NT-Pro-B Natriuret Pep 47.67 pg/mL (0-450) 03/02/20 16:51 Total Protein 6.1 g/dL (6.3-8.2) L 03/07/20 04:22 Albumin 3.1 g/dL (3.9-5) L 03/07/20 04:22 Albumin/Globulin Ratio 1.0 % 03/07/20 04:22 Procalcitonin < 0.05 ng/mL (<0.15) 02/25/20 14:21 Arterial Blood Glucose 147 mg/dL (65-95) H 03/01/20 08:53 Arterial Blood Ionized Calcium 4.7 mg/dL (4.6-5.3) 03/01/20 08:53 Urine Color Yellow (Yellow) 02/24/20 Unknown Urine Turbidity Clear (Clear) 02/24/20 Unknown Urine pH 6.0 (5.0-7.0) 02/24/20 Unknown Ur Specific [place] 1.023 (1.003-1.030) 02/24/20 Unknown Urine Protein 100 mg/dl mg/dL (Negative) 02/24/20 Unknown Urine Glucose (UA) Neg mg/dL (Negative) 02/24/20 Unknown Urine Ketones Neg mg/dL (Negative) 02/24/20 Unknown Urine Blood Neg (Negative) 02/24/20 Unknown Urine Nitrite Neg (Negative) 02/24/20 Unknown Urine Bilirubin Neg (Negative) 02/24/20 Unknown Urine Urobilinogen 2.0 mg/dL (<2.0) 02/24/20 Unknown Ur Leukocyte Esterase Neg (Negative) 02/24/20 Unknown Urine WBC (Auto) 4.0 /HPF (0.0-6.0) 02/24/20 Unknown Urine RBC (Auto) 2.0 /HPF (0.0-6.0) 02/24/20 Unknown U Epithel Cells (Auto) 3.0 /HPF (0-13.0) 02/24/20 Unknown Urine Bacteria (Auto) 1+ /HPF (Negative) 02/24/20 Unknown Urine Mucus 1+ /HPF 02/24/20 Unknown Coronavirus (PCR) Positive (Negative) A 02/26/20 10:45 SARS-CoV-2 IgG Ab Reactive (NonReactive) A 02/28/20 16:03 - Diagnostic Impressions Diagnostic Impressions: Echocardiogram 03/01/20 09:12 Transthoracic Echocardiogram Indication: Eval EF; PA HTN BP: 121/78 HR: 90 Conclusions *Global left ventricular systolic function is normal. *The estimated ejection fraction is 60-65%. *The right ventricular global systolic function is normal. *There is no evidence of aortic regurgitation. *There is trace of mitral regurgitation. *There is trace tricuspid regurgitation. *The right ventricular systolic pressure is calculated at 28 mmHg. *There is trace pulmonic regurgitation. Findings Left Ventricle: The left ventricular chamber size is normal. There is no left ventricular hypertrophy. Global left ventricular wall motion and contractility are within normal limits. Global left ventricular systolic function is normal. The estimated ejection fraction is 60-65%. There is an E to A reversal in the mitral valve flow pattern suggestive of diastolic dysfunction. Left Atrium: The left atrial chamber size is normal. Right Ventricle: The right ventricular cavity size is normal. The right ventricular global systolic function is normal. Right Atrium: The right atrial cavity size is normal. Aortic Valve: There is no evidence of aortic valve thickening. There is no evidence of aortic regurgitation. Mitral Valve: The mitral valve leaflets do not appear thickened. There is trace of mitral regurgitation. Tricuspid Valve: The tricuspid valve leaflets are normal. There is trace tricuspid regurgitation. The right ventricular systolic pressure is calculated at 28 mmHg. Pulmonic Valve: There is no evidence of pulmonic valve thickening. There is trace pulmonic regurgitation. Pericardium: There is no pericardial effusion. Aorta: The aorta appears normal. Venous: The inferior vena cava appears normal in size. Measurements Chambers 2D Name Value Normal Range IVSd (2D) 0.97 cm (0.6 - 1.1) LVPWd (2D) 1.05 cm (0.6 - 1.1) LVIDd (2D) 3.87 cm (3.7 - 5.6) LVIDs (2D) 2.41 cm (2 - 3.8) LV FS (2D) 37.69 % - EF Teichholz (2D) 68.47 % - Ao root diameter (2D) 2.92 cm (2 - 3.7) Volumes/Mass Name Value Normal Range LA ESV SP 4CH (A/L) 32.2 ml - LA ESV SP 2CH (A/L) 24.78 ml - LA ESV BP (A/L) 29.52 ml - LA ESV BP (A/L) index 16.68 ml/m2 - LA ESV SP 4CH (MOD) 29.62 ml - LA ESV SP 2CH (MOD) 23.68 ml - LA ESV BP (MOD) 27.57 ml - LA ESV BP (MOD) index 15.58 ml/m2 - Diastolic/Systolic Function Name Value Normal Range MV E-wave Vmax 0.59 m/sec - MV deceleration time 258.54 msec - MV A-wave Vmax 0.73 m/sec - MV E:A ratio 0.81 ratio - Aortic Valve Name Value Normal Range AV Vmax 1.33 m/sec - AV VTI 22.87 cm - AV peak gradient 7.09 mmHg - AV mean gradient 4.39 mmHg - LVOT diameter 1.52 cm - LVOT Vmax 1.22 m/sec - LVOT VTI 20.85 cm - LVOT peak gradient 5.96 mmHg - LVOT mean gradient 2.91 mmHg - SV LVOT 37.79 ml - VINEET (continuity Vmax) 1.66 cm2 - VINEET (continuity VTI) 1.65 cm2 - Ascending Ao 2.78 cm - Tricuspid Valve Name Value Normal Range TR Vmax 2.48 m/sec - TR peak gradient 25 mmHg - RAP 3 mmHg - RVSP 28 mmHg - IVC diameter 1.77 cm (1.2 - 2.3) Pulmonic Valve/Qp:Qs Name Value Normal Range PV Vmax 0.85 m/sec - PV peak gradient 2.9 mmHg - TX end-diastolic Vmax 1.26 m/sec - PV acceleration time 144.62 msec - [place]/IV: Voiding Method Incontinent IV Catheter Type [Right Peripheral IV Forearm] IV Catheter Type [Right Peripheral IV Antecubital] Active Medications - Current Medications Current Medications: Generic Name Dose Route Start Last Admin Trade Name Freq PRN Reason Stop Dose Admin Acetaminophen 650 mg 02/24/20 15:14 03/11/20 00:13 Acetaminophen 325 Mg Tab PO 650 mg Q4H PRN Administration Pain MILD(1-3)/Fever >100.5/DANGELO Albuterol 2.5 mg 02/24/20 15:14 Albuterol 2.5 Mg/3 Ml Nebu IH Q4HRT PRN Shortness Of Breath Ascorbic Acid 1,000 mg 02/29/20 23:45 03/12/20 09:32 Ascorbic Acid 500 Mg Tab PO 1,000 mg BID UTE Administration Benzonatate 100 mg 02/25/20 22:00 03/12/20 09:31 Benzonatate 100 Mg Cap PO 100 mg BID UTE Administration Cholecalciferol 5,000 unit 03/01/20 10:00 03/12/20 09:32 Cholecalciferol (Vit D3) 5,000 Unit Tab PO 5,000 unit DAILY UTE Administration Dexamethasone 6 mg 03/04/20 14:30 03/12/20 09:32 Dexamethasone 4 Mg/Ml Vial IV 03/12/20 10:01 6 mg Q24HR UTE Administration Enoxaparin Sodium 80 mg 02/29/20 23:45 03/12/20 09:31 Enoxaparin 80 Mg/0.8 Ml Inj SUB-Q 80 mg Q12HR UTE Administration Protocol Famotidine 10 mg 02/24/20 22:00 03/12/20 09:31 Famotidine 10 Mg Tab PO 10 mg BID UTE Administration Hydrocodone Bit/Homatropine Methylb 10 ml 02/26/20 15:00 03/11/20 20:25 Hydrocodone/Homatropine 5-1.5mg /5 Ml Oral Liqd Unit Dose PO 10 ml Q6H PRN Administration Cough Morphine Sulfate 2 mg 03/11/20 19:35 03/11/20 20:25 Morphine 2 Mg/1 Ml Inj IV 2 mg Q4H PRN Administration Pain, Moderate (4-6) Ondansetron HCl 4 mg 02/24/20 15:14 Ondansetron 4 Mg/2 Ml Inj IV Q8H PRN Nausea And Vomiting Sodium Chloride 10 ml 02/24/20 22:00 03/12/20 09:33 Sodium Chloride 0.9% 10 Ml Flush Syringe IV 10 ml BID UTE Administration Sodium Chloride 10 ml 02/24/20 15:14 Sodium Chloride 0.9% 10 Ml Flush Syringe IV PRN PRN LINE FLUSH Tramadol HCl 50 mg 02/29/20 22:10 03/11/20 09:15 Tramadol 50 Mg Tab PO 50 mg Q6H PRN Administration Pain, Moderate (4-6) Nutrition/Malnutrition Assess - Dietary Evaluation Nutrition/Malnutrition Findings: Nutrition Notes Start: 03/02/20 12:47 Freq: Status: Active Protocol: Document 03/02/20 12:47 EN (Rec: 03/02/20 12:53 EN [id number]) Co-Sign 03/02/20 12:47 MK Nutrition Notes Need for Assessment generated from: LOS Initial or Follow up Brief Note Current Diagnosis Sepsis Other Pertinent Diagnosis COVID-19+, Pneu, acute respiratory failure Current Diet Cardiac [place] Body Weight (kg) 0 Subjective/Other Information Pt screened for LOS. Unable to reach pt by phone x2 for assessment. RN unsure of current PO intakes for today but states pt has not had any N/V/D. Per chart, 100% meal consumption consistently Nutrition Intervention Anticipated Discharge Needs: Cardiac diet Revisit per MD consult or patient Sign Off request:
[2020-03-12 11:14] LABS: Alanine Aminotransferase 37 units/L (7-56)
[2020-03-12 11:22] LABS: Bilirubin,Direct < 0.2 mg/dL (0-0.2)
[2020-03-12] MEDS: HYDROcodone/HOMATROPINE 5-1.5MG /5 ML ORAL LIQD UNIT DOSE PO PRN (11:23)
--- NOTE | 2020-03-12 20:39 | Progress Note ---
Assessment and Plan PUI-COVID Acute hypoxemic respiratory failure Severe sepsis Bilateral pneumonia HFpEF Morbid obesity - continue BIPAP qhs with prn daytime use - s/p systemic steroids for >/= 10 days - s/p Remdesivir course - accuchecks with glycemic control per SSI for target blood glucose < 180 mg/dL; avoid hypoglycemia - wean supplemental oxygen for target O2 sat's > 92% acutely - VAP bundle addressed - bronchodilators with pulmonary hygiene per RT - avoid nephrotoxins, renally dose all medications - antiinfective's per ID rec's - prn analgesia per pain score - Maintenance of sleep-wake cycle, avoid delirium - aspiration precautions - G.I. & VTE prophylaxis (empiric weight based full dose anticoagulation acutely) - PT/OT/ROM exercises - continue mobility protocols for pressure ulcer prophylaxis - Monitor hemodynamics closely - continue other care per attending / other consultants - discharge planning ongoing concurrently .... Re-evaluate in am & prn Subjective Date of service: 03/12/20 Principal diagnosis: COVID-19 infection; Ac hypoxemic resp failure; Severe sepsis; PNA; Obesity Interval history: Patient is seen today for: PUI COVID-19; Acute hypoxemic respiratory failure; Severe sepsis; Bilateral pneumonia; Morbid obesity Seen and examined at bedside; 24hour events reviewed; nursing and respiratory care staff consulted; no adverse overnight events reported to me; restring peacefully in bed; continues to improve; No N/V/F/C Objective Vital Signs - 12hr 03/12/20 03/12/20 03/12/20 09:00 10:00 11:00 Temperature Pulse Rate 85 103 H 83 Respiratory 25 H 24 15 Rate Blood Pressure 109/56 105/61 100/57 O2 Sat by Pulse 96 95 97 Oximetry 03/12/20 03/12/20 03/12/20 12:00 12:20 13:00 Temperature 98.1 F Pulse Rate 87 90 Respiratory 10 L 36 H Rate Blood Pressure 100/57 90/45 O2 Sat by Pulse 96 97 99 Oximetry 03/12/20 03/12/20 03/12/20 14:00 15:00 16:00 Temperature 98.7 F Pulse Rate 95 H 97 H 98 H Respiratory 7 L 20 29 H Rate Blood Pressure 101/57 96/50 113/56 O2 Sat by Pulse 98 96 95 Oximetry 03/12/20 17:00 Temperature Pulse Rate 85 Respiratory 28 H Rate Blood Pressure 102/66 O2 Sat by Pulse 98 Oximetry Constitutional: no acute distress, alert, other (Slight cough.) Eyes: non-icteric ENT: oropharynx moist Neck: supple, no lymphadenopathy, other (+ large neck circumference) Effort: mildly labored Ascultation: Bilateral: rhonchi (scant) Percussion: Bilateral: not dull Cardiovascular: regular rate and rhythm Gastrointestinal: normoactive bowel sounds, soft, non-tender, non-distended Integumentary: normal Extremities: no cyanosis, no edema, pink and warm, pulses normal Neurologic: non-focal exam, pupils equal and round, CN II-XII normal, motor strength normal and Psychiatric: mood appropriate, affect normal CBC and BMP: 03/13/20 07:23 03/13/20 07:23 ABG, PT/INR, D-dimer: ABG ABG pH 7.439 pH Units (7.350-7.450) 03/06/20 09:40 POC ABG pCO2 40.0 mmHg (32.0-48.0) 03/01/20 08:53 ABG pCO2 36.8 mm Hg 03/06/20 09:40 POC ABG pO2 71.9 mmHg (83-108) L 03/01/20 08:53 ABG pO2 77.4 mm Hg (80.0-90.0) L 03/06/20 09:40 POC ABG HCO3 28.0 03/01/20 08:53 ABG O2 Saturation 96.0 % (95.0-99.0) 03/06/20 09:40 PT/INR, D-dimer D-Dimer 1170.89 ng/mlDDU (0-234) H 03/05/20 16:48 Abnormal lab findings: Abnormal Labs 02/24/20 02/24/20 02/24/20 12:07 12:07 12:07 WBC RBC MCHC 35 H Lymph % (Auto) Lymph # (Auto) Seg Neutrophils % 76.6 H Seg Neuts % (Manual) Lymphocytes % (Manual) Seg Neutrophils # Seg Neutrophils # Man Lymphocytes # (Manual) Monocytes # (Manual) D-Dimer 236.88 H ABG pH POC ABG pO2 ABG pO2 ABG O2 Saturation ABG Glucose Oxyhemoglobin Carboxyhemoglobin Sodium Potassium 3.4 L Chloride BUN Creatinine Glucose POC Glucose Ferritin AST 42 H ALT Alkaline Phosphatase Lactate Dehydrogenase C-Reactive Protein Total Protein Albumin Lipase Arterial Blood Glucose Coronavirus (PCR) SARS-CoV-2 IgG Ab 02/24/20 02/24/20 02/25/20 12:07 12:07 05:16 WBC RBC 3.53 L MCHC Lymph % (Auto) Lymph # (Auto) 1.1 L Seg Neutrophils % 75.0 H Seg Neuts % (Manual) Lymphocytes % (Manual) Seg Neutrophils # Seg Neutrophils # Man Lymphocytes # (Manual) Monocytes # (Manual) D-Dimer ABG pH POC ABG pO2 ABG pO2 ABG O2 Saturation ABG Glucose Oxyhemoglobin Carboxyhemoglobin Sodium Potassium Chloride BUN Creatinine Glucose 101 H POC Glucose Ferritin 200.8 H AST ALT Alkaline Phosphatase Lactate Dehydrogenase 315 H C-Reactive Protein 12.00 H Total Protein Albumin Lipase Arterial Blood Glucose Coronavirus (PCR) SARS-CoV-2 IgG Ab 02/25/20 02/25/20 02/25/20 05:16 08:21 11:52 WBC RBC MCHC Lymph % (Auto) Lymph # (Auto) Seg Neutrophils % Seg Neuts % (Manual) Lymphocytes % (Manual) Seg Neutrophils # Seg Neutrophils # Man Lymphocytes # (Manual) Monocytes # (Manual) D-Dimer ABG pH POC ABG pO2 ABG pO2 ABG O2 Saturation ABG Glucose Oxyhemoglobin Carboxyhemoglobin Sodium Potassium Chloride 109.8 H BUN Creatinine 0.4 L Glucose 143 H POC Glucose 123 H 133 H Ferritin AST ALT Alkaline Phosphatase Lactate Dehydrogenase C-Reactive Protein Total Protein Albumin Lipase Arterial Blood Glucose Coronavirus (PCR) SARS-CoV-2 IgG Ab 02/25/20 02/25/20 02/25/20 14:21 14:21 14:21 WBC RBC MCHC Lymph % (Auto) Lymph # (Auto) Seg Neutrophils % Seg Neuts % (Manual) Lymphocytes % (Manual) Seg Neutrophils # Seg Neutrophils # Man Lymphocytes # (Manual) Monocytes # (Manual) D-Dimer 396.96 H ABG pH POC ABG pO2 ABG pO2 ABG O2 Saturation ABG Glucose Oxyhemoglobin Carboxyhemoglobin Sodium Potassium Chloride BUN Creatinine Glucose 163 H POC Glucose Ferritin 335.1 H AST ALT Alkaline Phosphatase Lactate Dehydrogenase 406 H C-Reactive Protein 6.10 H Total Protein Albumin Lipase Arterial Blood Glucose Coronavirus (PCR) SARS-CoV-2 IgG Ab 02/25/20 02/25/2020 16:17 22:45 07:55 WBC RBC MCHC Lymph % (Auto) Lymph # (Auto) Seg Neutrophils % Seg Neuts % (Manual) Lymphocytes % (Manual) Seg Neutrophils # Seg Neutrophils # Man Lymphocytes # (Manual) Monocytes # (Manual) D-Dimer ABG pH POC ABG pO2 ABG pO2 ABG O2 Saturation ABG Glucose Oxyhemoglobin Carboxyhemoglobin Sodium Potassium Chloride BUN Creatinine Glucose POC Glucose 124 H 154 H 124 H Ferritin AST ALT Alkaline Phosphatase Lactate Dehydrogenase C-Reactive Protein Total Protein Albumin Lipase Arterial Blood Glucose Coronavirus (PCR) SARS-CoV-2 IgG Ab 02/26/20 02/26/20 02/26/20 10:45 12:10 16:51 WBC RBC MCHC Lymph % (Auto) Lymph # (Auto) Seg Neutrophils % Seg Neuts % (Manual) Lymphocytes % (Manual) Seg Neutrophils # Seg Neutrophils # Man Lymphocytes # (Manual) Monocytes # (Manual) D-Dimer ABG pH POC ABG pO2 ABG pO2 ABG O2 Saturation ABG Glucose Oxyhemoglobin Carboxyhemoglobin Sodium Potassium Chloride BUN Creatinine Glucose POC Glucose 121 H 129 H Ferritin AST ALT Alkaline Phosphatase Lactate Dehydrogenase C-Reactive Protein Total Protein Albumin Lipase Arterial Blood Glucose Coronavirus (PCR) Positive A SARS-CoV-2 IgG Ab 02/26/20 02/27/20 02/27/20 22:00 07:58 12:04 WBC RBC MCHC Lymph % (Auto) Lymph # (Auto) Seg Neutrophils % Seg Neuts % (Manual) Lymphocytes % (Manual) Seg Neutrophils # Seg Neutrophils # Man Lymphocytes # (Manual) Monocytes # (Manual) D-Dimer ABG pH POC ABG pO2 ABG pO2 ABG O2 Saturation ABG Glucose Oxyhemoglobin Carboxyhemoglobin Sodium Potassium Chloride BUN Creatinine Glucose POC Glucose 134 H 115 H 146 H Ferritin AST ALT Alkaline Phosphatase Lactate Dehydrogenase C-Reactive Protein Total Protein Albumin Lipase Arterial Blood Glucose Coronavirus (PCR) SARS-CoV-2 IgG Ab 02/27/20 02/28/20 02/28/20 17:21 16:03 16:03 WBC RBC MCHC Lymph % (Auto) Lymph # (Auto) Seg Neutrophils % Seg Neuts % (Manual) Lymphocytes % (Manual) Seg Neutrophils # Seg Neutrophils # Man Lymphocytes # (Manual) Monocytes # (Manual) D-Dimer 995.51 H ABG pH POC ABG pO2 ABG pO2 ABG O2 Saturation ABG Glucose Oxyhemoglobin Carboxyhemoglobin Sodium Potassium Chloride BUN Creatinine Glucose POC Glucose 136 H Ferritin 464.3 H AST ALT Alkaline Phosphatase Lactate Dehydrogenase C-Reactive Protein Total Protein Albumin Lipase Arterial Blood Glucose Coronavirus (PCR) SARS-CoV-2 IgG Ab 02/28/20 02/28/20 02/28/20 16:03 16:03 16:03 WBC RBC MCHC Lymph % (Auto) Lymph # (Auto) Seg Neutrophils % Seg Neuts % (Manual) Lymphocytes % (Manual) Seg Neutrophils # Seg Neutrophils # Man Lymphocytes # (Manual) Monocytes # (Manual) D-Dimer ABG pH POC ABG pO2 ABG pO2 ABG O2 Saturation ABG Glucose Oxyhemoglobin Carboxyhemoglobin Sodium Potassium Chloride BUN 23 H Creatinine 0.4 L Glucose 120 H POC Glucose Ferritin AST 72 H ALT 117 H Alkaline Phosphatase 137 H Lactate Dehydrogenase 779 H C-Reactive Protein 6.10 H Total Protein Albumin 3.0 L Lipase Arterial Blood Glucose Coronavirus (PCR) SARS-CoV-2 IgG Ab Reactive A 02/28/20 02/29/20 02/29/20 22:06 07:38 11:11 WBC RBC MCHC Lymph % (Auto) Lymph # (Auto) Seg Neutrophils % Seg Neuts % (Manual) Lymphocytes % (Manual) Seg Neutrophils # Seg Neutrophils # Man Lymphocytes # (Manual) Monocytes # (Manual) D-Dimer ABG pH POC ABG pO2 ABG pO2 ABG O2 Saturation ABG Glucose Oxyhemoglobin Carboxyhemoglobin Sodium Potassium Chloride BUN Creatinine Glucose POC Glucose 119 H 121 H 129 H Ferritin AST ALT Alkaline Phosphatase Lactate Dehydrogenase C-Reactive Protein Total Protein Albumin Lipase Arterial Blood Glucose Coronavirus (PCR) SARS-CoV-2 IgG Ab 02/29/20 02/29/20 03/01/20 15:58 22:02 05:23 WBC RBC MCHC Lymph % (Auto) Lymph # (Auto) Seg Neutrophils % Seg Neuts % (Manual) Lymphocytes % (Manual) Seg Neutrophils # Seg Neutrophils # Man Lymphocytes # (Manual) Monocytes # (Manual) D-Dimer 1841.84 H ABG pH POC ABG pO2 ABG pO2 ABG O2 Saturation ABG Glucose Oxyhemoglobin Carboxyhemoglobin Sodium Potassium Chloride BUN Creatinine Glucose POC Glucose 118 H 141 H Ferritin AST ALT Alkaline Phosphatase Lactate Dehydrogenase C-Reactive Protein Total Protein Albumin Lipase Arterial Blood Glucose Coronavirus (PCR) SARS-CoV-2 IgG Ab 03/01/20 03/01/20 03/01/20 05:23 05:23 05:23 WBC 17.6 H RBC MCHC Lymph % (Auto) Lymph # (Auto) Seg Neutrophils % Seg Neuts % (Manual) 96.0 H Lymphocytes % (Manual) 2.0 L Seg Neutrophils # Seg Neutrophils # Man 16.9 H Lymphocytes # (Manual) 0.4 L Monocytes # (Manual) D-Dimer ABG pH POC ABG pO2 ABG pO2 ABG O2 Saturation ABG Glucose Oxyhemoglobin Carboxyhemoglobin Sodium Potassium Chloride BUN 19 H Creatinine 0.3 L Glucose 145 H POC Glucose Ferritin 323.9 H AST ALT 63 H Alkaline Phosphatase 132 H Lactate Dehydrogenase 746 H C-Reactive Protein 6.80 H Total Protein Albumin 2.9 L Lipase Arterial Blood Glucose Coronavirus (PCR) SARS-CoV-2 IgG Ab 03/01/20 03/01/20 03/01/20 06:30 08:53 11:07 WBC RBC MCHC Lymph % (Auto) Lymph # (Auto) Seg Neutrophils % Seg Neuts % (Manual) Lymphocytes % (Manual) Seg Neutrophils # Seg Neutrophils # Man Lymphocytes # (Manual) Monocytes # (Manual) D-Dimer ABG pH 7.463 H POC ABG pO2 71.9 L ABG pO2 ABG O2 Saturation ABG Glucose 147 H Oxyhemoglobin Carboxyhemoglobin 0.2 L Sodium Potassium Chloride BUN Creatinine Glucose POC Glucose 132 H 126 H Ferritin AST ALT Alkaline Phosphatase Lactate Dehydrogenase C-Reactive Protein Total Protein Albumin Lipase Arterial Blood Glucose 147 H Coronavirus (PCR) SARS-CoV-2 IgG Ab 03/01/20 03/01/20 03/02/20 15:50 21:24 08:08 WBC RBC MCHC Lymph % (Auto) Lymph # (Auto) Seg Neutrophils % Seg Neuts % (Manual) Lymphocytes % (Manual) Seg Neutrophils # Seg Neutrophils # Man Lymphocytes # (Manual) Monocytes # (Manual) D-Dimer ABG pH POC ABG pO2 ABG pO2 ABG O2 Saturation ABG Glucose Oxyhemoglobin Carboxyhemoglobin Sodium Potassium Chloride BUN Creatinine Glucose POC Glucose 122 H 142 H 152 H Ferritin AST ALT Alkaline Phosphatase Lactate Dehydrogenase C-Reactive Protein Total Protein Albumin Lipase Arterial Blood Glucose Coronavirus (PCR) SARS-CoV-2 IgG Ab 03/02/20 03/02/20 03/02/20 11:41 16:51 21:56 WBC RBC MCHC Lymph % (Auto) Lymph # (Auto) Seg Neutrophils % Seg Neuts % (Manual) Lymphocytes % (Manual) Seg Neutrophils # Seg Neutrophils # Man Lymphocytes # (Manual) Monocytes # (Manual) D-Dimer ABG pH POC ABG pO2 ABG pO2 ABG O2 Saturation ABG Glucose Oxyhemoglobin Carboxyhemoglobin Sodium Potassium Chloride BUN Creatinine Glucose POC Glucose 136 H 137 H 126 H Ferritin AST ALT Alkaline Phosphatase Lactate Dehydrogenase C-Reactive Protein Total Protein Albumin Lipase Arterial Blood Glucose Coronavirus (PCR) SARS-CoV-2 IgG Ab 03/03/20 03/03/20 03/03/20 08:05 13:10 19:32 WBC RBC MCHC Lymph % (Auto) Lymph # (Auto) Seg Neutrophils % Seg Neuts % (Manual) Lymphocytes % (Manual) Seg Neutrophils # Seg Neutrophils # Man Lymphocytes # (Manual) Monocytes # (Manual) D-Dimer ABG pH POC ABG pO2 ABG pO2 ABG O2 Saturation ABG Glucose Oxyhemoglobin Carboxyhemoglobin Sodium Potassium Chloride BUN 27 H Creatinine 0.5 L D Glucose 200 H POC Glucose 147 H 114 H Ferritin AST ALT Alkaline Phosphatase Lactate Dehydrogenase C-Reactive Protein Total Protein Albumin 3.1 L Lipase Arterial Blood Glucose Coronavirus (PCR) SARS-CoV-2 IgG Ab 03/03/20 03/03/20 03/03/20 19:32 19:39 22:44 WBC 20.3 H RBC MCHC Lymph % (Auto) Lymph # (Auto) Seg Neutrophils % Seg Neuts % (Manual) 90.0 H Lymphocytes % (Manual) 4.0 L Seg Neutrophils # Seg Neutrophils # Man 18.3 H Lymphocytes # (Manual) 0.8 L Monocytes # (Manual) 1.2 H D-Dimer ABG pH POC ABG pO2 ABG pO2 ABG O2 Saturation ABG Glucose Oxyhemoglobin Carboxyhemoglobin Sodium Potassium Chloride BUN Creatinine Glucose POC Glucose 186 H 159 H Ferritin AST ALT Alkaline Phosphatase Lactate Dehydrogenase C-Reactive Protein Total Protein Albumin Lipase Arterial Blood Glucose Coronavirus (PCR) SARS-CoV-2 IgG Ab 03/04/20 03/04/20 03/04/20 06:06 06:06 07:52 WBC 17.2 H RBC MCHC Lymph % (Auto) Lymph # (Auto) Seg Neutrophils % Seg Neuts % (Manual) 88.0 H Lymphocytes % (Manual) 5.0 L Seg Neutrophils # 15.3 H Seg Neutrophils # Man 15.1 H Lymphocytes # (Manual) 0.9 L Monocytes # (Manual) D-Dimer ABG pH POC ABG pO2 ABG pO2 ABG O2 Saturation ABG Glucose Oxyhemoglobin Carboxyhemoglobin Sodium Potassium Chloride BUN 31 H Creatinine 0.4 L Glucose 144 H POC Glucose 131 H Ferritin AST ALT Alkaline Phosphatase Lactate Dehydrogenase C-Reactive Protein Total Protein Albumin 3.0 L Lipase Arterial Blood Glucose Coronavirus (PCR) SARS-CoV-2 IgG Ab 03/04/20 03/04/20 03/04/20 11:30 11:40 16:21 WBC RBC MCHC Lymph % (Auto) Lymph # (Auto) Seg Neutrophils % Seg Neuts % (Manual) Lymphocytes % (Manual) Seg Neutrophils # Seg Neutrophils # Man Lymphocytes # (Manual) Monocytes # (Manual) D-Dimer ABG pH 7.489 H POC ABG pO2 ABG pO2 54.6 L ABG O2 Saturation 90.4 L ABG Glucose Oxyhemoglobin 89.1 L Carboxyhemoglobin Sodium Potassium Chloride BUN Creatinine Glucose POC Glucose 121 H 155 H Ferritin AST ALT Alkaline Phosphatase Lactate Dehydrogenase C-Reactive Protein Total Protein Albumin Lipase Arterial Blood Glucose Coronavirus (PCR) SARS-CoV-2 IgG Ab 03/05/20 03/05/20 03/05/20 12:01 16:48 16:48 WBC RBC MCHC Lymph % (Auto) Lymph # (Auto) Seg Neutrophils % Seg Neuts % (Manual) Lymphocytes % (Manual) Seg Neutrophils # Seg Neutrophils # Man Lymphocytes # (Manual) Monocytes # (Manual) D-Dimer 1170.89 H ABG pH POC ABG pO2 ABG pO2 ABG O2 Saturation ABG Glucose Oxyhemoglobin Carboxyhemoglobin Sodium Potassium Chloride BUN Creatinine Glucose POC Glucose 116 H Ferritin 348.4 H AST ALT Alkaline Phosphatase Lactate Dehydrogenase C-Reactive Protein Total Protein Albumin Lipase Arterial Blood Glucose Coronavirus (PCR) SARS-CoV-2 IgG Ab 03/05/20 03/05/20 03/06/20 16:48 17:40 09:40 WBC RBC MCHC Lymph % (Auto) Lymph # (Auto) Seg Neutrophils % Seg Neuts % (Manual) Lymphocytes % (Manual) Seg Neutrophils # Seg Neutrophils # Man Lymphocytes # (Manual) Monocytes # (Manual) D-Dimer ABG pH POC ABG pO2 ABG pO2 77.4 L ABG O2 Saturation ABG Glucose Oxyhemoglobin 94.5 L Carboxyhemoglobin Sodium Potassium Chloride BUN Creatinine Glucose POC Glucose 233 H Ferritin AST ALT Alkaline Phosphatase Lactate Dehydrogenase 619 H C-Reactive Protein 3.50 H Total Protein Albumin Lipase Arterial Blood Glucose Coronavirus (PCR) SARS-CoV-2 IgG Ab 03/06/20 03/06/20 03/07/20 11:52 17:05 04:22 WBC 16.6 H RBC MCHC Lymph % (Auto) 7.9 L Lymph # (Auto) Seg Neutrophils % 87.5 H Seg Neuts % (Manual) Lymphocytes % (Manual) Seg Neutrophils # 14.5 H Seg Neutrophils # Man Lymphocytes # (Manual) Monocytes # (Manual) D-Dimer ABG pH POC ABG pO2 ABG pO2 ABG O2 Saturation ABG Glucose Oxyhemoglobin Carboxyhemoglobin Sodium Potassium Chloride BUN Creatinine Glucose POC Glucose 168 H 163 H Ferritin AST ALT Alkaline Phosphatase Lactate Dehydrogenase C-Reactive Protein Total Protein Albumin Lipase Arterial Blood Glucose Coronavirus (PCR) SARS-CoV-2 IgG Ab 03/07/20 03/07/20 03/07/20 04:22 11:27 16:55 WBC RBC MCHC Lymph % (Auto) Lymph # (Auto) Seg Neutrophils % Seg Neuts % (Manual) Lymphocytes % (Manual) Seg Neutrophils # Seg Neutrophils # Man Lymphocytes # (Manual) Monocytes # (Manual) D-Dimer ABG pH POC ABG pO2 ABG pO2 ABG O2 Saturation ABG Glucose Oxyhemoglobin Carboxyhemoglobin Sodium 134 L Potassium Chloride BUN 27 H Creatinine 0.4 L Glucose 109 H POC Glucose 108 H 140 H Ferritin AST ALT Alkaline Phosphatase Lactate Dehydrogenase C-Reactive Protein Total Protein 6.1 L Albumin 3.1 L Lipase Arterial Blood Glucose Coronavirus (PCR) SARS-CoV-2 IgG Ab 03/08/20 03/08/20 03/09/20 17:17 18:37 12:10 WBC RBC MCHC Lymph % (Auto) Lymph # (Auto) Seg Neutrophils % Seg Neuts % (Manual) Lymphocytes % (Manual) Seg Neutrophils # Seg Neutrophils # Man Lymphocytes # (Manual) Monocytes # (Manual) D-Dimer ABG pH POC ABG pO2 ABG pO2 ABG O2 Saturation ABG Glucose Oxyhemoglobin Carboxyhemoglobin Sodium Potassium Chloride BUN Creatinine Glucose POC Glucose 145 H 231 H 115 H Ferritin AST ALT Alkaline Phosphatase Lactate Dehydrogenase C-Reactive Protein Total Protein Albumin Lipase Arterial Blood Glucose Coronavirus (PCR) SARS-CoV-2 IgG Ab 03/10/20 03/10/20 03/12/20 11:23 15:34 10:19 WBC RBC MCHC Lymph % (Auto) Lymph # (Auto) Seg Neutrophils % Seg Neuts % (Manual) Lymphocytes % (Manual) Seg Neutrophils # Seg Neutrophils # Man Lymphocytes # (Manual) Monocytes # (Manual) D-Dimer ABG pH POC ABG pO2 ABG pO2 ABG O2 Saturation ABG Glucose Oxyhemoglobin Carboxyhemoglobin Sodium Potassium Chloride BUN Creatinine Glucose POC Glucose 125 H Ferritin 319.4 H AST ALT Alkaline Phosphatase Lactate Dehydrogenase C-Reactive Protein Total Protein 5.9 L Albumin 3.0 L Lipase 86 H Arterial Blood Glucose Coronavirus (PCR) SARS-CoV-2 IgG Ab Allied health notes reviewed: nursing
[2020-03-13 08:12] LABS: Hematocrit 36.2 % (30.3-42.9); Mean Corpuscular HGB Conc 33 % (30-34); Mean Corpuscular Volume 90 fl (79-97); Platelet Count 215 K/mm3 (140-440); Red Cell Distribution Width 13.8 % (13.2-15.2)
[2020-03-13 08:33] LABS: Alanine Aminotransferase 51 units/L (7-56); Albumin 3.1 g/dL (3.9-5); Blood Urea Nitrogen 20 mg/dL (7-17); Calcium 8.9 mg/dL (8.4-10.2); Hemolysis Index 9
[2020-03-13 08:37] LABS: BUN/Creatinine Ratio 40
[2020-03-13] MEDS: CHOLECALCIFEROL (VIT D3) 5,000 UNIT TAB PO SCH (10:37)
[2020-03-13] MEDS: BENZONATATE 100 MG CAP PO SCH ×2 (10:37→22:15)
[2020-03-13] MEDS: ASCORBIC ACID 500 MG TAB PO SCH ×2 (10:38→22:15)
[2020-03-13] MEDS: MORPHINE 2 MG/1 ML INJ IV PRN (10:41)
[2020-03-13] MEDS: ENOXAPARIN 80 MG/0.8 ML INJ SUB-Q SCH ×2 (11:06→22:16)
[2020-03-13] MEDS: FAMOTIDINE 10 MG TAB PO SCH (11:07)
--- NOTE | 2020-03-13 11:11 | Progress Note ---
Assessment and Plan Assessment and plan: 50 YO Female with Obesity Hypoventilation Syndrome presents to ED for evaluation. Patient states that she has "been feeling sick" for the past 2 weeks with persistent symptoms over the same timeframe. Patient was seen and evaluated by her primary care physician and treated with oral antibiotics for outpatient pneumonia. Patient states that she has experienced persistent symptoms in spite of of compliance with medication. Patient reports fever, dry cough, shortness of breath, decreased exercise tolerance, nausea, multiple episodes of vomiting, multiple loose stools, loss of sense of smell, loss of sense of taste, fatigue, malaise, body aches. Patient transported to [facility] via private vehicle for further care and evaluation of the aforementioned symptoms. Patient seen and evaluated in the emergency department. All lab and imaging studies reviewed. Patient found to have a fever to 102.1 F, as well as a pulse oximetry of 88% with exertion on room air which is consistent with acute hypoxem ic respiratory failure. Patient underwent chest x-ray which revealed bilateral pneumonia. Patient admitted to medical floor and initiated on pneumonia protocol as well as coronavirus protocol. Coronavirus PCR ordered in the emergency department and is pending at time of admission. Patient acknowledges fever, but denies chest pain, palpitation, skin rash, recent ill contacts, trauma, or known exposure to COVID-19. No medication listed at time of admission. No prior admission for review. 02/29/2020 Patient alert, awake. Having cough. Having mild shortness of breath at rest. Patient is on vapotherm, FIO2 100% and O2 saturation 90%. Patient switched to BIPAP. But patient not using it.Patient afebrile. No leukocytosis. Complaining headache at times.Patients [place] virus PCR is Positive. Patients chest xray done 02/24/20 reported Patchy bilateral pulmonary opacities are concerning for infection/pneumonia. 03/01/2020 03/01/2020 Patient on high flow oxygen and BiPAP 03/02/2020 Patient still on high flow oxygen and BiPAP 03/03/2020 Patient with worsening inflammatory markers Chest x-ray worsening with extensive consolidations Patient will be transferred to ICU 03/04/2020 Patient on high flow oxygen-40 L Worsening pulmonary alveolar infiltrates Possible intubation !05/07/19 On High flow oxygen 03/07/2020 Patient still on high flow oxygen Not intubated 03/08- on HFNC 03/10: Clinically showing some improvement as HFNC is improving. Continue weaning as tolerated 03/11: Continue supportive care, weaning oxygen as tolerated. Can transfer to 3rd floor if weaned off HFNC. 03/12: Patient respiratory meier continues to improve, did have some abdominal pain with FOOD, Will check LFT, ammonia, and Lipase and abdominal ultrasound, considering patient is 35% FIO2, will transfer to [facility]. -- Acute hypoxemic respiratory failure Current Visit: Yes Status: Acute Plan to address problem: Patient on 40 L high flow oxygen Worsening clinical picture Patient may need intubation Patient to transfer to ICU Dr. Love discussed the case with me Patient transferred to ICU Patient on high flow oxygen Trying to avoid intubation -- Covid pneumonia Current Visit: Yes Status: Acute Plan to address problem: Patient is coronavirus PCR positive on 02/26/2020 Patient is also SARS-CoV-2 IgG positive Patient is not a candidate for Covid convalescent plasma Steroids Continue remdesivir for 5 days-today is day 5 of day 5 Continue anticoagulation Prone positioning as possible High flow oxygen -- Pneumonia Current Visit: Yes Status: Acute Plan to address problem: Pneumonia protocol: Chest x-ray, CBC, CMP, supplemental oxygen, nebulizer therapy, pulse oximetry, IV antibiotic therapy, pulmonary toilet, blood culture. -- severe sepsis Remains hypoxic likely due to bilateral pneumonia Continue IV antibiotics --Abdominal Pain; acute gastritis supportive care, abdominal ultrasound, possible GI consult if no improvement --DVT prophylaxis Current Visit: Yes Status: Acute Plan to address problem: High-dose Lovenox Monitor closely and adjust the management as needed Plan of care reviewed with the patient and her nurse as well as the case management Consults and recommendations noted and appreciated Possible discharge home tomorrow if stable History Interval history: I have seen and examined the patient at the bedside Patient's chart and medications reviewed No new events reported by the nursing Patient is requiring oxygen Vital signs noted Hospitalist Physical - Constitutional Vitals: Temp Pulse Resp BP Pulse Ox 98.9 F 86 22 102/40 96 03/13/20 05:17 03/13/20 05:17 03/13/20 10:41 03/13/20 05:17 03/13/20 05:30 General appearance: Present: mild distress, well-nourished, obese - EENT Eyes: Present: PERRL, EOM intact - Neck Neck: Present: supple, normal ROM - Respiratory Respiratory effort: normal Respiratory: bilateral: diminished, rhonchi, negative: rales, wheezing - Cardiovascular Rhythm: regular Heart Sounds: Present: S1 & S2 - Extremities Extremities: no ischemia, No edema - Abdominal General gastrointestinal: soft, non-tender, non-distended, normal bowel sounds - Integumentary Integumentary: Present: clear, warm - Psychiatric Psychiatric: appropriate mood/affect, cooperative - Neurologic Neurologic: CNII-XII intact, moves all extremities HEART Score - HEART Score Troponin: Troponin T < 0.010 ng/mL (0.00-0.029) 02/28/20 16:03 Results - Labs CBC & Chem 7: 03/13/20 07:23 03/13/20 07:23 Labs: Laboratory Last Values WBC 12.2 K/mm3 (4.5-11.0) H 03/13/20 07:23 RBC 4.00 M/mm3 (3.65-5.03) 03/13/20 07:23 Hgb 12.0 gm/dl (10.1-14.3) 03/13/20 07:23 Hct 36.2 % (30.3-42.9) 03/13/20 07:23 MCV 90 fl (79-97) 03/13/20 07:23 MCH 30 pg (28-32) 03/13/20 07:23 MCHC 33 % (30-34) 03/13/20 07:23 RDW 13.8 % (13.2-15.2) 03/13/20 07:23 Plt Count 215 K/mm3 (140-440) 03/13/20 07:23 Lymph % (Auto) 7.9 % (13.4-35.0) L 03/07/20 04:22 Nye % (Auto) 3.5 % (0.0-7.3) 03/07/20 04:22 Eos % (Auto) 0.9 % (0.0-4.3) 03/07/20 04:22 Baso % (Auto) 0.2 % (0.0-1.8) 03/07/20 04:22 Lymph # (Auto) 1.3 K/mm3 (1.2-5.4) 03/07/20 04:22 Nye # (Auto) 0.6 K/mm3 (0.0-0.8) 03/07/20 04:22 Eos # (Auto) 0.2 K/mm3 (0.0-0.4) 03/07/20 04:22 Baso # (Auto) 0.0 K/mm3 (0.0-0.1) 03/07/20 04:22 Add Manual Diff Complete 03/04/20 06:06 Total Counted 100 03/04/20 06:06 Seg Neutrophils % 87.5 % (40.0-70.0) H 03/07/20 04:22 Seg Neuts % (Manual) 88.0 % (40.0-70.0) H 03/04/20 06:06 Lymphocytes % (Manual) 5.0 % (13.4-35.0) L 03/04/20 06:06 Reactive Lymphs % (Man) 1.0 % 03/04/20 06:06 Monocytes % (Manual) 4.0 % (0.0-7.3) 03/04/20 06:06 Eosinophils % (Manual) 1.0 % (0.0-4.3) 03/04/20 06:06 Metamyelocytes % 1.0 % 03/04/20 06:06 Nucleated RBC % Not Reportable 03/04/20 06:06 Seg Neutrophils # 14.5 K/mm3 (1.8-7.7) H 03/07/20 04:22 Seg Neutrophils # Man 15.1 K/mm3 (1.8-7.7) H 03/04/20 06:06 Band Neutrophils # 0.0 K/mm3 03/04/20 06:06 Lymphocytes # (Manual) 0.9 K/mm3 (1.2-5.4) L 03/04/20 06:06 Abs React Lymphs (Man) 0.2 K/mm3 03/04/20 06:06 Monocytes # (Manual) 0.7 K/mm3 (0.0-0.8) 03/04/20 06:06 Eosinophils # (Manual) 0.2 K/mm3 (0.0-0.4) 03/04/20 06:06 Basophils # (Manual) 0.0 K/mm3 (0.0-0.1) 03/04/20 06:06 Metamyelocytes # 0.2 K/mm3 03/04/20 06:06 Myelocytes # 0.0 K/mm3 03/04/20 06:06 Promyelocytes # 0.0 K/mm3 03/04/20 06:06 Blast Cells # 0.0 K/mm3 03/04/20 06:06 WBC Morphology Not Reportable 03/04/20 06:06 Hypersegmented Neuts Not Reportable 03/04/20 06:06 Hyposegmented Neuts Not Reportable 03/04/20 06:06 Hypogranular Neuts Not Reportable 03/04/20 06:06 Smudge Cells Not Reportable 03/04/20 06:06 Toxic Granulation Not Reportable 03/04/20 06:06 Toxic Vacuolation Not Reportable 03/04/20 06:06 Dohle Bodies Not Reportable 03/04/20 06:06 Pelger-Huet Anomaly Not Reportable 03/04/20 06:06 Mian Rods Not Reportable 03/04/20 06:06 Platelet Estimate Consistent w auto 03/04/20 06:06 Clumped Platelets Not Reportable 03/04/20 06:06 Plt Clumps, EDTA Not Reportable 03/04/20 06:06 Large Platelets Not Reportable 03/04/20 06:06 Giant Platelets Not Reportable 03/04/20 06:06 Platelet Satelliting Not Reportable 03/04/20 06:06 Plt Morphology Comment Not Reportable 03/04/20 06:06 RBC Morphology Normal 03/04/20 06:06 Dimorphic RBCs Not Reportable 03/04/20 06:06 Polychromasia Not Reportable 03/04/20 06:06 Hypochromasia Not Reportable 03/04/20 06:06 Poikilocytosis Not Reportable 03/04/20 06:06 Anisocytosis Not Reportable 03/04/20 06:06 Microcytosis Not Reportable 03/04/20 06:06 Macrocytosis Not Reportable 03/04/20 06:06 Spherocytes Not Reportable 03/04/20 06:06 Pappenheimer Bodies Not Reportable 03/04/20 06:06 Sickle Cells Not Reportable 03/04/20 06:06 Target Cells Not Reportable 03/04/20 06:06 Tear Drop Cells Not Reportable 03/04/20 06:06 Ovalocytes Not Reportable 03/04/20 06:06 Helmet Cells Not Reportable 03/04/20 06:06 [place] Bodies Not Reportable 03/04/20 06:06 [place] Rings Not Reportable 03/04/20 06:06 [place] Cells Not Reportable 03/04/20 06:06 Bite Cells Not Reportable 03/04/20 06:06 Crenated Cell Not Reportable 03/04/20 06:06 Elliptocytes Not Reportable 03/04/20 06:06 Acanthocytes (Spur) Not Reportable 03/04/20 06:06 Rouleaux Not Reportable 03/04/20 06:06 Hemoglobin C Crystals Not Reportable 03/04/20 06:06 Schistocytes Not Reportable 03/04/20 06:06 Malaria parasites Not Reportable 03/04/20 06:06 Jesus Bodies Not Reportable 03/04/20 06:06 Hem Pathologist Commnt No 03/04/20 06:06 D-Dimer 1170.89 ng/mlDDU (0-234) H 03/05/20 16:48 ABG pH 7.439 pH Units (7.350-7.450) 03/06/20 09:40 POC ABG pCO2 40.0 mmHg (32.0-48.0) 03/01/20 08:53 ABG pCO2 36.8 mm Hg 03/06/20 09:40 POC ABG pO2 71.9 mmHg (83-108) L 03/01/20 08:53 ABG pO2 77.4 mm Hg (80.0-90.0) L 03/06/20 09:40 POC ABG HCO3 28.0 03/01/20 08:53 ABG HCO3 24.4 mmol/L (20.0-26.0) 03/06/20 09:40 ABG O2 Saturation 96.0 % (95.0-99.0) 03/06/20 09:40 ABG O2 Content 18.4 (0.0-44) 03/06/20 09:40 POC ABG Base Excess 4.0 03/01/20 08:53 ABG Base Excess 0.5 mmol/L (-2.0-3.0) 03/06/20 09:40 ABG Hemoglobin 13.8 gm/dl (12.0-16.0) 03/06/20 09:40 ABG Oxyhemoglobin 94.1 (94-98) 03/01/20 08:53 ABG Carboxyhemoglobin 1.1 % (0.0-5.0) 03/06/20 09:40 ABG Methemoglobin 0.4 % (0.0-1.5) 03/06/20 09:40 ABG Sodium 139.8 mmol/L (136.0-145.0) 03/01/20 08:53 ABG Potassium 3.9 mmol/L (3.40-4.50) 03/01/20 08:53 ABG Chloride 105.0 mmol/L (98-107) 03/01/20 08:53 ABG Glucose 147 mg/dL (65-95) H 03/01/20 08:53 Oxyhemoglobin 94.5 % (95.0-99.0) L 03/06/20 09:40 Carboxyhemoglobin 0.2 (0.5-1.5) L 03/01/20 08:53 FiO2 100 % 03/06/20 09:40 Sodium 136 mmol/L (137-145) L 03/13/20 07:23 Potassium 3.6 mmol/L (3.6-5.0) 03/13/20 07:23 Chloride 101.3 mmol/L (98-107) 03/13/20 07:23 Carbon Dioxide 27 mmol/L (22-30) 03/13/20 07:23 Anion Gap 11 mmol/L 03/13/20 07:23 BUN 20 mg/dL (7-17) H 03/13/20 07:23 Creatinine 0.5 mg/dL (0.6-1.2) L 03/13/20 07:23 Estimated GFR > 60 ml/min 03/13/20 07:23 BUN/Creatinine Ratio 40 % 03/13/20 07:23 Glucose 88 mg/dL (65-100) 03/13/20 07:23 POC Glucose 125 mg/dL (70-105) H 03/10/20 11:23 Lactic Acid 1.00 mmol/L (0.7-2.0) 02/24/20 14:31 Calcium 8.9 mg/dL (8.4-10.2) 03/13/20 07:23 Ferritin 319.4 ng/mL (10.0-200.0) H 03/10/20 15:34 Total Bilirubin 0.20 mg/dL (0.1-1.2) 03/13/20 07:23 Direct Bilirubin < 0.2 mg/dL (0-0.2) 03/12/20 10:19 Indirect Bilirubin 0.0 mg/dL 03/12/20 10:19 AST 23 units/L (5-40) 03/13/20 07:23 ALT 51 units/L (7-56) 03/13/20 07:23 Alkaline Phosphatase 66 units/L (35-129) 03/13/20 07:23 Lactate Dehydrogenase 619 units/L (91-180) H 03/05/20 16:48 Troponin T < 0.010 ng/mL (0.00-0.029) 02/28/20 16:03 C-Reactive Protein 0.30 mg/dL (0.00-1.30) 03/10/20 15:34 NT-Pro-B Natriuret Pep 47.67 pg/mL (0-450) 03/02/20 16:51 Total Protein 6.1 g/dL (6.3-8.2) L 03/13/20 07:23 Albumin 3.1 g/dL (3.9-5) L 03/13/20 07:23 Albumin/Globulin Ratio 1.0 % 03/13/20 07:23 Lipase 86 units/L (13-60) H 03/12/20 10:19 Procalcitonin < 0.05 ng/mL (<0.15) 02/25/20 14:21 Arterial Blood Glucose 147 mg/dL (65-95) H 03/01/20 08:53 Arterial Blood Ionized Calcium 4.7 mg/dL (4.6-5.3) 03/01/20 08:53 Urine Color Yellow (Yellow) 02/24/20 Unknown Urine Turbidity Clear (Clear) 02/24/20 Unknown Urine pH 6.0 (5.0-7.0) 02/24/20 Unknown Ur Specific [place] 1.023 (1.003-1.030) 02/24/20 Unknown Urine Protein 100 mg/dl mg/dL (Negative) 02/24/20 Unknown Urine Glucose (UA) Neg mg/dL (Negative) 02/24/20 Unknown Urine Ketones Neg mg/dL (Negative) 02/24/20 Unknown Urine Blood Neg (Negative) 02/24/20 Unknown Urine Nitrite Neg (Negative) 02/24/20 Unknown Urine Bilirubin Neg (Negative) 02/24/20 Unknown Urine Urobilinogen 2.0 mg/dL (<2.0) 02/24/20 Unknown Ur Leukocyte Esterase Neg (Negative) 02/24/20 Unknown Urine WBC (Auto) 4.0 /HPF (0.0-6.0) 02/24/20 Unknown Urine RBC (Auto) 2.0 /HPF (0.0-6.0) 02/24/20 Unknown U Epithel Cells (Auto) 3.0 /HPF (0-13.0) 02/24/20 Unknown Urine Bacteria (Auto) 1+ /HPF (Negative) 02/24/20 Unknown Urine Mucus 1+ /HPF 02/24/20 Unknown Coronavirus (PCR) Positive (Negative) A 02/26/20 10:45 SARS-CoV-2 IgG Ab Reactive (NonReactive) A 02/28/20 16:03 - Diagnostic Impressions Diagnostic Impressions: Echocardiogram 03/01/20 09:12 Transthoracic Echocardiogram Indication: Eval EF; PA HTN BP: 121/78 HR: 90 Conclusions *Global left ventricular systolic function is normal. *The estimated ejection fraction is 60-65%. *The right ventricular global systolic function is normal. *There is no evidence of aortic regurgitation. *There is trace of mitral regurgitation. *There is trace tricuspid regurgitation. *The right ventricular systolic pressure is calculated at 28 mmHg. *There is trace pulmonic regurgitation. Findings Left Ventricle: The left ventricular chamber size is normal. There is no left ventricular hypertrophy. Global left ventricular wall motion and contractility are within normal limits. Global left ventricular systolic function is normal. The estimated ejection fraction is 60-65%. There is an E to A reversal in the mitral valve flow pattern suggestive of diastolic dysfunction. Left Atrium: The left atrial chamber size is normal. Right Ventricle: The right ventricular cavity size is normal. The right ventricular global systolic function is normal. Right Atrium: The right atrial cavity size is normal. Aortic Valve: There is no evidence of aortic valve thickening. There is no evidence of aortic regurgitation. Mitral Valve: The mitral valve leaflets do not appear thickened. There is trace of mitral regurgitation. Tricuspid Valve: The tricuspid valve leaflets are normal. There is trace tricuspid regurgitation. The right ventricular systolic pressure is calculated at 28 mmHg. Pulmonic Valve: There is no evidence of pulmonic valve thickening. There is trace pulmonic regurgitation. Pericardium: There is no pericardial effusion. Aorta: The aorta appears normal. Venous: The inferior vena cava appears normal in size. Measurements Chambers 2D Name Value Normal Range IVSd (2D) 0.97 cm (0.6 - 1.1) LVPWd (2D) 1.05 cm (0.6 - 1.1) LVIDd (2D) 3.87 cm (3.7 - 5.6) LVIDs (2D) 2.41 cm (2 - 3.8) LV FS (2D) 37.69 % - EF Teichholz (2D) 68.47 % - Ao root diameter (2D) 2.92 cm (2 - 3.7) Volumes/Mass Name Value Normal Range LA ESV SP 4CH (A/L) 32.2 ml - LA ESV SP 2CH (A/L) 24.78 ml - LA ESV BP (A/L) 29.52 ml - LA ESV BP (A/L) index 16.68 ml/m2 - LA ESV SP 4CH (MOD) 29.62 ml - LA ESV SP 2CH (MOD) 23.68 ml - LA ESV BP (MOD) 27.57 ml - LA ESV BP (MOD) index 15.58 ml/m2 - Diastolic/Systolic Function Name Value Normal Range MV E-wave Vmax 0.59 m/sec - MV deceleration time 258.54 msec - MV A-wave Vmax 0.73 m/sec - MV E:A ratio 0.81 ratio - Aortic Valve Name Value Normal Range AV Vmax 1.33 m/sec - AV VTI 22.87 cm - AV peak gradient 7.09 mmHg - AV mean gradient 4.39 mmHg - LVOT diameter 1.52 cm - LVOT Vmax 1.22 m/sec - LVOT VTI 20.85 cm - LVOT peak gradient 5.96 mmHg - LVOT mean gradient 2.91 mmHg - SV LVOT 37.79 ml - VINEET (continuity Vmax) 1.66 cm2 - VINEET (continuity VTI) 1.65 cm2 - Ascending Ao 2.78 cm - Tricuspid Valve Name Value Normal Range TR Vmax 2.48 m/sec - TR peak gradient 25 mmHg - RAP 3 mmHg - RVSP 28 mmHg - IVC diameter 1.77 cm (1.2 - 2.3) Pulmonic Valve/Qp:Qs Name Value Normal Range PV Vmax 0.85 m/sec - PV peak gradient 2.9 mmHg - CO end-diastolic Vmax 1.26 m/sec - PV acceleration time 144.62 msec - [place]/IV: Voiding Method Incontinent IV Catheter Type [Right Peripheral IV Forearm] IV Catheter Type [Right Peripheral IV Antecubital] Active Medications - Current Medications Current Medications: Generic Name Dose Route Start Last Admin Trade Name Freq PRN Reason Stop Dose Admin Acetaminophen 650 mg 02/24/20 15:14 03/11/20 00:13 Acetaminophen 325 Mg Tab PO 650 mg Q4H PRN Administration Pain MILD(1-3)/Fever >100.5/DANGELO Albuterol 2.5 mg 02/24/20 15:14 Albuterol 2.5 Mg/3 Ml Nebu IH Q4HRT PRN Shortness Of Breath Ascorbic Acid 1,000 mg 02/29/20 23:45 03/13/20 10:38 Ascorbic Acid 500 Mg Tab PO 1,000 mg BID UTE Administration Benzonatate 100 mg 02/25/20 22:00 03/13/20 10:37 Benzonatate 100 Mg Cap PO 100 mg BID UTE Administration Cholecalciferol 5,000 unit 03/01/20 10:00 03/13/20 10:37 Cholecalciferol (Vit D3) 5,000 Unit Tab PO 5,000 unit DAILY UTE Administration Enoxaparin Sodium 80 mg 02/29/20 23:45 03/12/20 23:08 Enoxaparin 80 Mg/0.8 Ml Inj SUB-Q 80 mg Q12HR UTE Administration Protocol Famotidine 10 mg 02/24/20 22:00 03/12/20 22:27 Famotidine 10 Mg Tab PO 10 mg BID UTE Administration Hydrocodone Bit/Homatropine Methylb 10 ml 02/26/20 15:00 03/12/20 11:23 Hydrocodone/Homatropine 5-1.5mg /5 Ml Oral Liqd Unit Dose PO 10 ml Q6H PRN Administration Cough Morphine Sulfate 2 mg 03/11/20 19:35 03/13/20 10:41 Morphine 2 Mg/1 Ml Inj IV 2 mg Q4H PRN Administration Pain, Moderate (4-6) Ondansetron HCl 4 mg 02/24/20 15:14 Ondansetron 4 Mg/2 Ml Inj IV Q8H PRN Nausea And Vomiting Sodium Chloride 10 ml 02/24/20 22:00 03/13/20 10:38 Sodium Chloride 0.9% 10 Ml Flush Syringe IV 10 ml BID UTE Administration Sodium Chloride 10 ml 02/24/20 15:14 Sodium Chloride 0.9% 10 Ml Flush Syringe IV PRN PRN LINE FLUSH Tramadol HCl 50 mg 02/29/20 22:10 03/11/20 09:15 Tramadol 50 Mg Tab PO 50 mg Q6H PRN Administration Pain, Moderate (4-6) Nutrition/Malnutrition Assess - Dietary Evaluation Nutrition/Malnutrition Findings: Nutrition Notes Start: 03/02/20 12:47 Freq: Status: Active Protocol: Document 03/02/20 12:47 EN (Rec: 03/02/20 12:53 EN [id number]) Co-Sign 03/02/20 12:47 MK Nutrition Notes Need for Assessment generated from: LOS Initial or Follow up Brief Note Current Diagnosis Sepsis Other Pertinent Diagnosis COVID-19+, Pneu, acute respiratory failure Current Diet Cardiac [place] Body Weight (kg) 0 Subjective/Other Information Pt screened for LOS. Unable to reach pt by phone x2 for assessment. RN unsure of current PO intakes for today but states pt has not had any N/V/D. Per chart, 100% meal consumption consistently Nutrition Intervention Anticipated Discharge Needs: Cardiac diet Revisit per MD consult or patient Sign Off request:
--- NOTE | 2020-03-13 13:46 | Progress Note ---
Assessment and Plan Patient alert, awake. Having cough. Having mild shortness of breath at rest. Patients O2 requirements coming down. Patient is on 4 litres o2. O2 saturation running 96%. Patient afebrile. Has mild leukocytosis. Patients Hu[place] virus PCR is Positive. Patients chest xray done 02/24/20 reported Patchy bilateral pulmonary opacities are concerning for infection/pneumonia. Atypical/viral etiologies should be considered. Patients inflammatory markers Ferritin 319.4 LDH 619 C reactive protein .3 Troponin .01 D Dimer 1170.89 Patient was on REMDESIVIR.Finished course of REMDESIVIR. Patient presently on Methyl prednisone and S/C Lovenox 80 mg q 12 hours. Patient has CTA of chest 02/29/[address] evidence for pulmonary embolism. Diffuse bilateral airspace disease. The imaging appearance is nonspecific and could be seen in the setting of bacterial pneumonia or atypical/viral etiologies. There is mild mediastinal adenopathy. No associated effusions. Patient has venous doppler studies of legs 02/29/20 reported No sonographic evidence for DVT in either lower extremity. ABG on 100% FIO2. ABG pH 7.463 (7.320-7.450) H 03/01/20 08:53 POC ABG pCO2 40.0 mmHg (32.0-48.0) 03/01/20 08:53 POC ABG pO2 71.9 mmHg (83-108) L 03/01/20 08:53 POC ABG HCO3 28.0 03/01/20 08:53 Recommend repeat ABGs on room air. - Patient Problems (1) Acute hypoxemic respiratory failure Current Visit: Yes Status: Acute Plan to address problem: Patient is on O2 4 litres via nasal canula. Albuterol inhaler. I/V Methyl prednisone S/C Lovenox (2) Obesity hypoventilation syndrome Current Visit: Yes Status: Acute Plan to address problem: Recommend to loose weight. ABG on 100% FIO2. ABG pH 7.463 (7.320-7.450) H 03/01/20 08:53 POC ABG pCO2 40.0 mmHg (32.0-48.0) 03/01/20 08:53 POC ABG pO2 71.9 mmHg (83-108) L 03/01/20 08:53 POC ABG HCO3 28.0 03/01/20 08:53 ABG results not suggestive of Obesity hypoventilation. Recommend sleep study as out patient. Recommend to repeat ABGs on room air. (3) Pneumonia Current Visit: Yes Status: Acute Qualifiers: Laterality: bilateral Plan to address problem: Patient was on REMDESIVIR and Methyl prednisone Antibiotics as per infectious diseases. (4) Coronavirus infection Current Visit: Yes Status: Acute Plan to address problem: Patients Hu[place] virus PCR is positive. Patient finished course of REMDESIVIR, Patient is Presently on Methyl prednisone and S/C Lovenox. Subjective Date of service: 03/13/20 Principal diagnosis: Severe COVID-19 Interval history: Patient alert, awake. Having cough. Having mild shortness of breath at rest. Patients O2 requirements coming down. Patient is on 4 litres o2. O2 saturation running 96%. Patient afebrile. Has mild leukocytosis. Patients Hu[place] virus PCR is Positive. Patients chest xray done 02/24/20 reported Patchy bilateral pulmonary opacities are concerning for infection/pneumonia. Atypical/viral et iologies should be considered. Patients inflammatory markers Ferritin 319.4 LDH 619 C reactive protein .3 Troponin .01 D Dimer 1170.89 Patient was on REMDESIVIR.Finished course of REMDESIVIR. Patient presently on Methyl prednisone and S/C Lovenox 80 mg q 12 hours. Patient has CTA of chest 02/29/[address] evidence for pulmonary embolism. Diffuse bilateral airspace disease. The imaging appearance is nonspecific and could be seen in the setting of bacterial pneumonia or atypical/viral etiologies. There is mild mediastinal adenopathy. No associated effusions. Patient has venous doppler studies of legs 02/29/20 reported No sonographic evidence for DVT in either lower extremity. ABG on 100% FIO2. ABG pH 7.463 (7.320-7.450) H 03/01/20 08:53 POC ABG pCO2 40.0 mmHg (32.0-48.0) 03/01/20 08:53 POC ABG pO2 71.9 mmHg (83-108) L 03/01/20 08:53 POC ABG HCO3 28.0 03/01/20 08:53 Recommend repeat ABGs on room air. Objective Vital Signs - 12hr 03/13/20 03/13/20 03/13/20 05:17 05:30 10:41 Temperature 98.9 F Pulse Rate 86 Respiratory 16 22 Rate Blood Pressure 102/40 O2 Sat by Pulse 94 96 Oximetry Constitutional: no acute distress, alert, other (Having cough) Eyes: non-icteric ENT: oropharynx moist Neck: supple, no lymphadenopathy Effort: mildly labored Ascultation: Bilateral: rales (bases), rhonchi Percussion: Bilateral: not dull Cardiovascular: regular rate and rhythm Gastrointestinal: normoactive bowel sounds, soft, non-tender Integumentary: normal Extremities: no cyanosis, no edema Neurologic: non-focal exam, pupils equal and round Psychiatric: mood appropriate CBC and BMP: 03/13/20 07:23 03/13/20 07:23 ABG, PT/INR, D-dimer: ABG ABG pH 7.439 pH Units (7.350-7.450) 03/06/20 09:40 POC ABG pCO2 40.0 mmHg (32.0-48.0) 03/01/20 08:53 ABG pCO2 36.8 mm Hg 03/06/20 09:40 POC ABG pO2 71.9 mmHg (83-108) L 03/01/20 08:53 ABG pO2 77.4 mm Hg (80.0-90.0) L 03/06/20 09:40 POC ABG HCO3 28.0 03/01/20 08:53 ABG O2 Saturation 96.0 % (95.0-99.0) 03/06/20 09:40 PT/INR, D-dimer D-Dimer 1170.89 ng/mlDDU (0-234) H 03/05/20 16:48 Abnormal lab findings: Abnormal Labs 02/24/20 02/24/20 02/24/20 12:07 12:07 12:07 WBC RBC MCHC 35 H Lymph % (Auto) Lymph # (Auto) Seg Neutrophils % 76.6 H Seg Neuts % (Manual) Lymphocytes % (Manual) Seg Neutrophils # Seg Neutrophils # Man Lymphocytes # (Manual) Monocytes # (Manual) D-Dimer 236.88 H ABG pH POC ABG pO2 ABG pO2 ABG O2 Saturation ABG Glucose Oxyhemoglobin Carboxyhemoglobin Sodium Potassium 3.4 L Chloride BUN Creatinine Glucose POC Glucose Ferritin AST 42 H ALT Alkaline Phosphatase Lactate Dehydrogenase C-Reactive Protein Total Protein Albumin Lipase Arterial Blood Glucose Coronavirus (PCR) SARS-CoV-2 IgG Ab 02/24/20 02/24/20 02/25/20 12:07 12:07 05:16 WBC RBC 3.53 L MCHC Lymph % (Auto) Lymph # (Auto) 1.1 L Seg Neutrophils % 75.0 H Seg Neuts % (Manual) Lymphocytes % (Manual) Seg Neutrophils # Seg Neutrophils # Man Lymphocytes # (Manual) Monocytes # (Manual) D-Dimer ABG pH POC ABG pO2 ABG pO2 ABG O2 Saturation ABG Glucose Oxyhemoglobin Carboxyhemoglobin Sodium Potassium Chloride BUN Creatinine Glucose 101 H POC Glucose Ferritin 200.8 H AST ALT Alkaline Phosphatase Lactate Dehydrogenase 315 H C-Reactive Protein 12.00 H Total Protein Albumin Lipase Arterial Blood Glucose Coronavirus (PCR) SARS-CoV-2 IgG Ab 02/25/20 02/25/20 02/25/20 05:16 08:21 11:52 WBC RBC MCHC Lymph % (Auto) Lymph # (Auto) Seg Neutrophils % Seg Neuts % (Manual) Lymphocytes % (Manual) Seg Neutrophils # Seg Neutrophils # Man Lymphocytes # (Manual) Monocytes # (Manual) D-Dimer ABG pH POC ABG pO2 ABG pO2 ABG O2 Saturation ABG Glucose Oxyhemoglobin Carboxyhemoglobin Sodium Potassium Chloride 109.8 H BUN Creatinine 0.4 L Glucose 143 H POC Glucose 123 H 133 H Ferritin AST ALT Alkaline Phosphatase Lactate Dehydrogenase C-Reactive Protein Total Protein Albumin Lipase Arterial Blood Glucose Coronavirus (PCR) SARS-CoV-2 IgG Ab 02/25/20 02/25/20 02/25/20 14:21 14:21 14:21 WBC RBC MCHC Lymph % (Auto) Lymph # (Auto) Seg Neutrophils % Seg Neuts % (Manual) Lymphocytes % (Manual) Seg Neutrophils # Seg Neutrophils # Man Lymphocytes # (Manual) Monocytes # (Manual) D-Dimer 396.96 H ABG pH POC ABG pO2 ABG pO2 ABG O2 Saturation ABG Glucose Oxyhemoglobin Carboxyhemoglobin Sodium Potassium Chloride BUN Creatinine Glucose 163 H POC Glucose Ferritin 335.1 H AST ALT Alkaline Phosphatase Lactate Dehydrogenase 406 H C-Reactive Protein 6.10 H Total Protein Albumin Lipase Arterial Blood Glucose Coronavirus (PCR) SARS-CoV-2 IgG Ab 02/25/20 02/25/20 02/26/20 16:17 22:45 07:55 WBC RBC MCHC Lymph % (Auto) Lymph # (Auto) Seg Neutrophils % Seg Neuts % (Manual) Lymphocytes % (Manual) Seg Neutrophils # Seg Neutrophils # Man Lymphocytes # (Manual) Monocytes # (Manual) D-Dimer ABG pH POC ABG pO2 ABG pO2 ABG O2 Saturation ABG Glucose Oxyhemoglobin Carboxyhemoglobin Sodium Potassium Chloride BUN Creatinine Glucose POC Glucose 124 H 154 H 124 H Ferritin AST ALT Alkaline Phosphatase Lactate Dehydrogenase C-Reactive Protein Total Protein Albumin Lipase Arterial Blood Glucose Coronavirus (PCR) SARS-CoV-2 IgG Ab 02/26/20 02/26/20 02/26/20 10:45 12:10 16:51 WBC RBC MCHC Lymph % (Auto) Lymph # (Auto) Seg Neutrophils % Seg Neuts % (Manual) Lymphocytes % (Manual) Seg Neutrophils # Seg Neutrophils # Man Lymphocytes # (Manual) Monocytes # (Manual) D-Dimer ABG pH POC ABG pO2 ABG pO2 ABG O2 Saturation ABG Glucose Oxyhemoglobin Carboxyhemoglobin Sodium Potassium Chloride BUN Creatinine Glucose POC Glucose 121 H 129 H Ferritin AST ALT Alkaline Phosphatase Lactate Dehydrogenase C-Reactive Protein Total Protein Albumin Lipase Arterial Blood Glucose Coronavirus (PCR) Positive A SARS-CoV-2 IgG Ab 02/26/20 02/27/20 02/27/20 22:00 07:58 12:04 WBC RBC MCHC Lymph % (Auto) Lymph # (Auto) Seg Neutrophils % Seg Neuts % (Manual) Lymphocytes % (Manual) Seg Neutrophils # Seg Neutrophils # Man Lymphocytes # (Manual) Monocytes # (Manual) D-Dimer ABG pH POC ABG pO2 ABG pO2 ABG O2 Saturation ABG Glucose Oxyhemoglobin Carboxyhemoglobin Sodium Potassium Chloride BUN Creatinine Glucose POC Glucose 134 H 115 H 146 H Ferritin AST ALT Alkaline Phosphatase Lactate Dehydrogenase C-Reactive Protein Total Protein Albumin Lipase Arterial Blood Glucose Coronavirus (PCR) SARS-CoV-2 IgG Ab 02/27/20 02/28/20 02/28/20 17:21 16:03 16:03 WBC RBC MCHC Lymph % (Auto) Lymph # (Auto) Seg Neutrophils % Seg Neuts % (Manual) Lymphocytes % (Manual) Seg Neutrophils # Seg Neutrophils # Man Lymphocytes # (Manual) Monocytes # (Manual) D-Dimer 995.51 H ABG pH POC ABG pO2 ABG pO2 ABG O2 Saturation ABG Glucose Oxyhemoglobin Carboxyhemoglobin Sodium Potassium Chloride BUN Creatinine Glucose POC Glucose 136 H Ferritin 464.3 H AST ALT Alkaline Phosphatase Lactate Dehydrogenase C-Reactive Protein Total Protein Albumin Lipase Arterial Blood Glucose Coronavirus (PCR) SARS-CoV-2 IgG Ab 02/28/20 02/28/20 02/28/20 16:03 16:03 16:03 WBC RBC MCHC Lymph % (Auto) Lymph # (Auto) Seg Neutrophils % Seg Neuts % (Manual) Lymphocytes % (Manual) Seg Neutrophils # Seg Neutrophils # Man Lymphocytes # (Manual) Monocytes # (Manual) D-Dimer ABG pH POC ABG pO2 ABG pO2 ABG O2 Saturation ABG Glucose Oxyhemoglobin Carboxyhemoglobin Sodium Potassium Chloride BUN 23 H Creatinine 0.4 L Glucose 120 H POC Glucose Ferritin AST 72 H ALT 117 H Alkaline Phosphatase 137 H Lactate Dehydrogenase 779 H C-Reactive Protein 6.10 H Total Protein Albumin 3.0 L Lipase Arterial Blood Glucose Coronavirus (PCR) SARS-CoV-2 IgG Ab Reactive A 02/28/20 02/29/20 02/29/20 22:06 07:38 11:11 WBC RBC MCHC Lymph % (Auto) Lymph # (Auto) Seg Neutrophils % Seg Neuts % (Manual) Lymphocytes % (Manual) Seg Neutrophils # Seg Neutrophils # Man Lymphocytes # (Manual) Monocytes # (Manual) D-Dimer ABG pH POC ABG pO2 ABG pO2 ABG O2 Saturation ABG Glucose Oxyhemoglobin Carboxyhemoglobin Sodium Potassium Chloride BUN Creatinine Glucose POC Glucose 119 H 121 H 129 H Ferritin AST ALT Alkaline Phosphatase Lactate Dehydrogenase C-Reactive Protein Total Protein Albumin Lipase Arterial Blood Glucose Coronavirus (PCR) SARS-CoV-2 IgG Ab 02/29/20 02/29/20 03/01/20 15:58 22:02 05:23 WBC RBC MCHC Lymph % (Auto) Lymph # (Auto) Seg Neutrophils % Seg Neuts % (Manual) Lymphocytes % (Manual) Seg Neutrophils # Seg Neutrophils # Man Lymphocytes # (Manual) Monocytes # (Manual) D-Dimer 1841.84 H ABG pH POC ABG pO2 ABG pO2 ABG O2 Saturation ABG Glucose Oxyhemoglobin Carboxyhemoglobin Sodium Potassium Chloride BUN Creatinine Glucose POC Glucose 118 H 141 H Ferritin AST ALT Alkaline Phosphatase Lactate Dehydrogenase C-Reactive Protein Total Protein Albumin Lipase Arterial Blood Glucose Coronavirus (PCR) SARS-CoV-2 IgG Ab 03/01/20 03/01/20 03/01/20 05:23 05:23 05:23 WBC 17.6 H RBC MCHC Lymph % (Auto) Lymph # (Auto) Seg Neutrophils % Seg Neuts % (Manual) 96.0 H Lymphocytes % (Manual) 2.0 L Seg Neutrophils # Seg Neutrophils # Man 16.9 H Lymphocytes # (Manual) 0.4 L Monocytes # (Manual) D-Dimer ABG pH POC ABG pO2 ABG pO2 ABG O2 Saturation ABG Glucose Oxyhemoglobin Carboxyhemoglobin Sodium Potassium Chloride BUN 19 H Creatinine 0.3 L Glucose 145 H POC Glucose Ferritin 323.9 H AST ALT 63 H Alkaline Phosphatase 132 H Lactate Dehydrogenase 746 H C-Reactive Protein 6.80 H Total Protein Albumin 2.9 L Lipase Arterial Blood Glucose Coronavirus (PCR) SARS-CoV-2 IgG Ab 03/01/20 03/01/20 03/01/20 06:30 08:53 11:07 WBC RBC MCHC Lymph % (Auto) Lymph # (Auto) Seg Neutrophils % Seg Neuts % (Manual) Lymphocytes % (Manual) Seg Neutrophils # Seg Neutrophils # Man Lymphocytes # (Manual) Monocytes # (Manual) D-Dimer ABG pH 7.463 H POC ABG pO2 71.9 L ABG pO2 ABG O2 Saturation ABG Glucose 147 H Oxyhemoglobin Carboxyhemoglobin 0.2 L Sodium Potassium Chloride BUN Creatinine Glucose POC Glucose 132 H 126 H Ferritin AST ALT Alkaline Phosphatase Lactate Dehydrogenase C-Reactive Protein Total Protein Albumin Lipase Arterial Blood Glucose 147 H Coronavirus (PCR) SARS-CoV-2 IgG Ab 03/01/20 03/01/20 03/02/20 15:50 21:24 08:08 WBC RBC MCHC Lymph % (Auto) Lymph # (Auto) Seg Neutrophils % Seg Neuts % (Manual) Lymphocytes % (Manual) Seg Neutrophils # Seg Neutrophils # Man Lymphocytes # (Manual) Monocytes # (Manual) D-Dimer ABG pH POC ABG pO2 ABG pO2 ABG O2 Saturation ABG Glucose Oxyhemoglobin Carboxyhemoglobin Sodium Potassium Chloride BUN Creatinine Glucose POC Glucose 122 H 142 H 152 H Ferritin AST ALT Alkaline Phosphatase Lactate Dehydrogenase C-Reactive Protein Total Protein Albumin Lipase Arterial Blood Glucose Coronavirus (PCR) SARS-CoV-2 IgG Ab 03/02/20 03/02/20 03/02/20 11:41 16:51 21:56 WBC RBC MCHC Lymph % (Auto) Lymph # (Auto) Seg Neutrophils % Seg Neuts % (Manual) Lymphocytes % (Manual) Seg Neutrophils # Seg Neutrophils # Man Lymphocytes # (Manual) Monocytes # (Manual) D-Dimer ABG pH POC ABG pO2 ABG pO2 ABG O2 Saturation ABG Glucose Oxyhemoglobin Carboxyhemoglobin Sodium Potassium Chloride BUN Creatinine Glucose POC Glucose 136 H 137 H 126 H Ferritin AST ALT Alkaline Phosphatase Lactate Dehydrogenase C-Reactive Protein Total Protein Albumin Lipase Arterial Blood Glucose Coronavirus (PCR) SARS-CoV-2 IgG Ab 03/03/20 03/03/20 03/03/20 08:05 13:10 19:32 WBC RBC MCHC Lymph % (Auto) Lymph # (Auto) Seg Neutrophils % Seg Neuts % (Manual) Lymphocytes % (Manual) Seg Neutrophils # Seg Neutrophils # Man Lymphocytes # (Manual) Monocytes # (Manual) D-Dimer ABG pH POC ABG pO2 ABG pO2 ABG O2 Saturation ABG Glucose Oxyhemoglobin Carboxyhemoglobin Sodium Potassium Chloride BUN 27 H Creatinine 0.5 L D Glucose 200 H POC Glucose 147 H 114 H Ferritin AST ALT Alkaline Phosphatase Lactate Dehydrogenase C-Reactive Protein Total Protein Albumin 3.1 L Lipase Arterial Blood Glucose Coronavirus (PCR) SARS-CoV-2 IgG Ab 03/03/20 03/03/20 03/03/20 19:32 19:39 22:44 WBC 20.3 H RBC MCHC Lymph % (Auto) Lymph # (Auto) Seg Neutrophils % Seg Neuts % (Manual) 90.0 H Lymphocytes % (Manual) 4.0 L Seg Neutrophils # Seg Neutrophils # Man 18.3 H Lymphocytes # (Manual) 0.8 L Monocytes # (Manual) 1.2 H D-Dimer ABG pH POC ABG pO2 ABG pO2 ABG O2 Saturation ABG Glucose Oxyhemoglobin Carboxyhemoglobin Sodium Potassium Chloride BUN Creatinine Glucose POC Glucose 186 H 159 H Ferritin AST ALT Alkaline Phosphatase Lactate Dehydrogenase C-Reactive Protein Total Protein Albumin Lipase Arterial Blood Glucose Coronavirus (PCR) SARS-CoV-2 IgG Ab 03/04/20 03/04/20 03/04/20 06:06 06:06 07:52 WBC 17.2 H RBC MCHC Lymph % (Auto) Lymph # (Auto) Seg Neutrophils % Seg Neuts % (Manual) 88.0 H Lymphocytes % (Manual) 5.0 L Seg Neutrophils # 15.3 H Seg Neutrophils # Man 15.1 H Lymphocytes # (Manual) 0.9 L Monocytes # (Manual) D-Dimer ABG pH POC ABG pO2 ABG pO2 ABG O2 Saturation ABG Glucose Oxyhemoglobin Carboxyhemoglobin Sodium Potassium Chloride BUN 31 H Creatinine 0.4 L Glucose 144 H POC Glucose 131 H Ferritin AST ALT Alkaline Phosphatase Lactate Dehydrogenase C-Reactive Protein Total Protein Albumin 3.0 L Lipase Arterial Blood Glucose Coronavirus (PCR) SARS-CoV-2 IgG Ab 03/04/20 03/04/20 03/04/20 11:30 11:40 16:21 WBC RBC MCHC Lymph % (Auto) Lymph # (Auto) Seg Neutrophils % Seg Neuts % (Manual) Lymphocytes % (Manual) Seg Neutrophils # Seg Neutrophils # Man Lymphocytes # (Manual) Monocytes # (Manual) D-Dimer ABG pH 7.489 H POC ABG pO2 ABG pO2 54.6 L ABG O2 Saturation 90.4 L ABG Glucose Oxyhemoglobin 89.1 L Carboxyhemoglobin Sodium Potassium Chloride BUN Creatinine Glucose POC Glucose 121 H 155 H Ferritin AST ALT Alkaline Phosphatase Lactate Dehydrogenase C-Reactive Protein Total Protein Albumin Lipase Arterial Blood Glucose Coronavirus (PCR) SARS-CoV-2 IgG Ab 03/05/20 03/05/20 03/05/20 12:01 16:48 16:48 WBC RBC MCHC Lymph % (Auto) Lymph # (Auto) Seg Neutrophils % Seg Neuts % (Manual) Lymphocytes % (Manual) Seg Neutrophils # Seg Neutrophils # Man Lymphocytes # (Manual) Monocytes # (Manual) D-Dimer 1170.89 H ABG pH POC ABG pO2 ABG pO2 ABG O2 Saturation ABG Glucose Oxyhemoglobin Carboxyhemoglobin Sodium Potassium Chloride BUN Creatinine Glucose POC Glucose 116 H Ferritin 348.4 H AST ALT Alkaline Phosphatase Lactate Dehydrogenase C-Reactive Protein Total Protein Albumin Lipase Arterial Blood Glucose Coronavirus (PCR) SARS-CoV-2 IgG Ab 03/05/20 03/05/20 03/06/20 16:48 17:40 09:40 WBC RBC MCHC Lymph % (Auto) Lymph # (Auto) Seg Neutrophils % Seg Neuts % (Manual) Lymphocytes % (Manual) Seg Neutrophils # Seg Neutrophils # Man Lymphocytes # (Manual) Monocytes # (Manual) D-Dimer ABG pH POC ABG pO2 ABG pO2 77.4 L ABG O2 Saturation ABG Glucose Oxyhemoglobin 94.5 L Carboxyhemoglobin Sodium Potassium Chloride BUN Creatinine Glucose POC Glucose 233 H Ferritin AST ALT Alkaline Phosphatase Lactate Dehydrogenase 619 H C-Reactive Protein 3.50 H Total Protein Albumin Lipase Arterial Blood Glucose Coronavirus (PCR) SARS-CoV-2 IgG Ab 03/06/20 03/06/20 03/07/20 11:52 17:05 04:22 WBC 16.6 H RBC MCHC Lymph % (Auto) 7.9 L Lymph # (Auto) Seg Neutrophils % 87.5 H Seg Neuts % (Manual) Lymphocytes % (Manual) Seg Neutrophils # 14.5 H Seg Neutrophils # Man Lymphocytes # (Manual) Monocytes # (Manual) D-Dimer ABG pH POC ABG pO2 ABG pO2 ABG O2 Saturation ABG Glucose Oxyhemoglobin Carboxyhemoglobin Sodium Potassium Chloride BUN Creatinine Glucose POC Glucose 168 H 163 H Ferritin AST ALT Alkaline Phosphatase Lactate Dehydrogenase C-Reactive Protein Total Protein Albumin Lipase Arterial Blood Glucose Coronavirus (PCR) SARS-CoV-2 IgG Ab 03/07/20 03/07/20 03/07/20 04:22 11:27 16:55 WBC RBC MCHC Lymph % (Auto) Lymph # (Auto) Seg Neutrophils % Seg Neuts % (Manual) Lymphocytes % (Manual) Seg Neutrophils # Seg Neutrophils # Man Lymphocytes # (Manual) Monocytes # (Manual) D-Dimer ABG pH POC ABG pO2 ABG pO2 ABG O2 Saturation ABG Glucose Oxyhemoglobin Carboxyhemoglobin Sodium 134 L Potassium Chloride BUN 27 H Creatinine 0.4 L Glucose 109 H POC Glucose 108 H 140 H Ferritin AST ALT Alkaline Phosphatase Lactate Dehydrogenase C-Reactive Protein Total Protein 6.1 L Albumin 3.1 L Lipase Arterial Blood Glucose Coronavirus (PCR) SARS-CoV-2 IgG Ab 03/08/20 03/08/20 03/09/20 17:17 18:37 12:10 WBC RBC MCHC Lymph % (Auto) Lymph # (Auto) Seg Neutrophils % Seg Neuts % (Manual) Lymphocytes % (Manual) Seg Neutrophils # Seg Neutrophils # Man Lymphocytes # (Manual) Monocytes # (Manual) D-Dimer ABG pH POC ABG pO2 ABG pO2 ABG O2 Saturation ABG Glucose Oxyhemoglobin Carboxyhemoglobin Sodium Potassium Chloride BUN Creatinine Glucose POC Glucose 145 H 231 H 115 H Ferritin AST ALT Alkaline Phosphatase Lactate Dehydrogenase C-Reactive Protein Total Protein Albumin Lipase Arterial Blood Glucose Coronavirus (PCR) SARS-CoV-2 IgG Ab 03/10/20 03/10/20 03/12/20 11:23 15:34 10:19 WBC RBC MCHC Lymph % (Auto) Lymph # (Auto) Seg Neutrophils % Seg Neuts % (Manual) Lymphocytes % (Manual) Seg Neutrophils # Seg Neutrophils # Man Lymphocytes # (Manual) Monocytes # (Manual) D-Dimer ABG pH POC ABG pO2 ABG pO2 ABG O2 Saturation ABG Glucose Oxyhemoglobin Carboxyhemoglobin Sodium Potassium Chloride BUN Creatinine Glucose POC Glucose 125 H Ferritin 319.4 H AST ALT Alkaline Phosphatase Lactate Dehydrogenase C-Reactive Protein Total Protein 5.9 L Albumin 3.0 L Lipase 86 H Arterial Blood Glucose Coronavirus (PCR) SARS-CoV-2 IgG Ab 03/13/20 03/13/20 07:23 07:23 WBC 12.2 H RBC MCHC Lymph % (Auto) Lymph # (Auto) Seg Neutrophils % Seg Neuts % (Manual) Lymphocytes % (Manual) Seg Neutrophils # Seg Neutrophils # Man Lymphocytes # (Manual) Monocytes # (Manual) D-Dimer ABG pH POC ABG pO2 ABG pO2 ABG O2 Saturation ABG Glucose Oxyhemoglobin Carboxyhemoglobin Sodium 136 L Potassium Chloride BUN 20 H Creatinine 0.5 L Glucose POC Glucose Ferritin AST ALT Alkaline Phosphatase Lactate Dehydrogenase C-Reactive Protein Total Protein 6.1 L Albumin 3.1 L Lipase Arterial Blood Glucose Coronavirus (PCR) SARS-CoV-2 IgG Ab Allied health notes reviewed: RT
[2020-03-13] MEDS: FAMOTIDINE 20 MG TAB PO SCH (22:16)
[2020-03-14] MEDS: FAMOTIDINE 20 MG TAB PO SCH ×2 (09:52→21:10)
[2020-03-14] MEDS: ASCORBIC ACID 500 MG TAB PO SCH ×2 (09:52→21:11)
[2020-03-14] MEDS: CHOLECALCIFEROL (VIT D3) 5,000 UNIT TAB PO SCH (09:52)
[2020-03-14] MEDS: BENZONATATE 100 MG CAP PO SCH ×2 (09:52→21:11)
[2020-03-14] MEDS: ENOXAPARIN 80 MG/0.8 ML INJ SUB-Q SCH ×2 (09:52→21:11)
[2020-03-14] MEDS: ACETAMINOPHEN 325 MG TAB PO PRN (10:14)
--- NOTE | 2020-03-14 13:52 | Progress Note ---
Assessment and Plan PUI-COVID Acute hypoxemic respiratory failure Severe sepsis Bilateral pneumonia HFpEF Morbid obesity - repeat CXR in am - continue BIPAP qhs with prn daytime use - s/p systemic steroids for >/= 10 days - s/p Remdesivir course - accuchecks with glycemic control per SSI for target blood glucose < 180 mg/dL; avoid hypoglycemia - wean supplemental oxygen for target O2 sat's > 92% acutely - VAP bundle addressed - bronchodilators with pulmonary hygiene per RT - avoid nephrotoxins, renally dose all medications - antiinfective's per ID rec's - prn analgesia per pain score - Maintenance of sleep-wake cycle, avoid delirium - aspiration precautions - G.I. & VTE prophylaxis (empiric weight based full dose anticoagulation acu tely) - PT/OT/ROM exercises - continue mobility protocols for pressure ulcer prophylaxis - Monitor hemodynamics closely - continue other care per attending / other consultants - home oxygen evaluation at discharge - discharge planning ongoing concurrently .... Re-evaluate in am & prn Subjective Date of service: 03/14/20 Principal diagnosis: COVID-19 infxn; Ac hypoxemic resp failure; Severe sepsis; Pneumonia;Obesity Interval history: Patient is seen today for: PUI COVID-19; Acute hypoxemic respiratory failure; Severe sepsis; Bilateral pneumonia; Morbid obesity Seen and examined at bedside; 24hour events reviewed; nursing and respiratory care staff consulted; no adverse overnight events reported to me; restring peacefully in bed; FiO2 down to 32%; denies acute chest pains or palpitations Objective Vital Signs - 12hr 03/14/20 03/14/20 05:28 08:31 Temperature 98.0 F Pulse Rate 85 Respiratory 18 Rate Blood Pressure 90/48 O2 Sat by Pulse 97 97 Oximetry Constitutional: no acute distress, alert, other (middle aged obese female with m ildly increased respiratory effort) Eyes: non-icteric ENT: oropharynx moist Neck: supple, no lymphadenopathy Effort: mildly labored Ascultation: Bilateral: rhonchi Percussion: Bilateral: not dull Cardiovascular: regular rate and rhythm Gastrointestinal: normoactive bowel sounds, soft, non-tender, non-distended (protuberant) Integumentary: normal Extremities: no cyanosis, no edema Neurologic: non-focal exam, pupils equal and round Psychiatric: mood appropriate CBC and BMP: 03/13/20 07:23 03/13/20 07:23 ABG, PT/INR, D-dimer: ABG ABG pH 7.439 pH Units (7.350-7.450) 03/06/20 09:40 POC ABG pCO2 40.0 mmHg (32.0-48.0) 03/01/20 08:53 ABG pCO2 36.8 mm Hg 03/06/20 09:40 POC ABG pO2 71.9 mmHg (83-108) L 03/01/20 08:53 ABG pO2 77.4 mm Hg (80.0-90.0) L 03/06/20 09:40 POC ABG HCO3 28.0 03/01/20 08:53 ABG O2 Saturation 96.0 % (95.0-99.0) 03/06/20 09:40 PT/INR, D-dimer D-Dimer 1170.89 ng/mlDDU (0-234) H 03/05/20 16:48 Abnormal lab findings: Abnormal Labs 02/24/20 02/24/20 02/24/20 12:07 12:07 12:07 WBC RBC MCHC 35 H Lymph % (Auto) Lymph # (Auto) Seg Neutrophils % 76.6 H Seg Neuts % (Manual) Lymphocytes % (Manual) Seg Neutrophils # Seg Neutrophils # Man Lymphocytes # (Manual) Monocytes # (Manual) D-Dimer 236.88 H ABG pH POC ABG pO2 ABG pO2 ABG O2 Saturation ABG Glucose Oxyhemoglobin Carboxyhemoglobin Sodium Potassium 3.4 L Chloride BUN Creatinine Glucose POC Glucose Ferritin AST 42 H ALT Alkaline Phosphatase Lactate Dehydrogenase C-Reactive Protein Total Protein Albumin Lipase Arterial Blood Glucose Coronavirus (PCR) SARS-CoV-2 IgG Ab 02/24/20 02/24/20 02/25/20 12:07 12:07 05:16 WBC RBC 3.53 L MCHC Lymph % (Auto) Lymph # (Auto) 1.1 L Seg Neutrophils % 75.0 H Seg Neuts % (Manual) Lymphocytes % (Manual) Seg Neutrophils # Seg Neutrophils # Man Lymphocytes # (Manual) Monocytes # (Manual) D-Dimer ABG pH POC ABG pO2 ABG pO2 ABG O2 Saturation ABG Glucose Oxyhemoglobin Carboxyhemoglobin Sodium Potassium Chloride BUN Creatinine Glucose 101 H POC Glucose Ferritin 200.8 H AST ALT Alkaline Phosphatase Lactate Dehydrogenase 315 H C-Reactive Protein 12.00 H Total Protein Albumin Lipase Arterial Blood Glucose Coronavirus (PCR) SARS-CoV-2 IgG Ab 02/25/20 02/25/20 02/25/20 05:16 08:21 11:52 WBC RBC MCHC Lymph % (Auto) Lymph # (Auto) Seg Neutrophils % Seg Neuts % (Manual) Lymphocytes % (Manual) Seg Neutrophils # Seg Neutrophils # Man Lymphocytes # (Manual) Monocytes # (Manual) D-Dimer ABG pH POC ABG pO2 ABG pO2 ABG O2 Saturation ABG Glucose Oxyhemoglobin Carboxyhemoglobin Sodium Potassium Chloride 109.8 H BUN Creatinine 0.4 L Glucose 143 H POC Glucose 123 H 133 H Ferritin AST ALT Alkaline Phosphatase Lactate Dehydrogenase C-Reactive Protein Total Protein Albumin Lipase Arterial Blood Glucose Coronavirus (PCR) SARS-CoV-2 IgG Ab 02/25/20 02/25/20 02/25/20 14:21 14:21 14:21 WBC RBC MCHC Lymph % (Auto) Lymph # (Auto) Seg Neutrophils % Seg Neuts % (Manual) Lymphocytes % (Manual) Seg Neutrophils # Seg Neutrophils # Man Lymphocytes # (Manual) Monocytes # (Manual) D-Dimer 396.96 H ABG pH POC ABG pO2 ABG pO2 ABG O2 Saturation ABG Glucose Oxyhemoglobin Carboxyhemoglobin Sodium Potassium Chloride BUN Creatinine Glucose 163 H POC Glucose Ferritin 335.1 H AST ALT Alkaline Phosphatase Lactate Dehydrogenase 406 H C-Reactive Protein 6.10 H Total Protein Albumin Lipase Arterial Blood Glucose Coronavirus (PCR) SARS-CoV-2 IgG Ab 02/25/20 02/25/20 02/26/20 16:17 22:45 07:55 WBC RBC MCHC Lymph % (Auto) Lymph # (Auto) Seg Neutrophils % Seg Neuts % (Manual) Lymphocytes % (Manual) Seg Neutrophils # Seg Neutrophils # Man Lymphocytes # (Manual) Monocytes # (Manual) D-Dimer ABG pH POC ABG pO2 ABG pO2 ABG O2 Saturation ABG Glucose Oxyhemoglobin Carboxyhemoglobin Sodium Potassium Chloride BUN Creatinine Glucose POC Glucose 124 H 154 H 124 H Ferritin AST ALT Alkaline Phosphatase Lactate Dehydrogenase C-Reactive Protein Total Protein Albumin Lipase Arterial Blood Glucose Coronavirus (PCR) SARS-CoV-2 IgG Ab 02/26/20 02/26/20 02/26/20 10:45 12:10 16:51 WBC RBC MCHC Lymph % (Auto) Lymph # (Auto) Seg Neutrophils % Seg Neuts % (Manual) Lymphocytes % (Manual) Seg Neutrophils # Seg Neutrophils # Man Lymphocytes # (Manual) Monocytes # (Manual) D-Dimer ABG pH POC ABG pO2 ABG pO2 ABG O2 Saturation ABG Glucose Oxyhemoglobin Carboxyhemoglobin Sodium Potassium Chloride BUN Creatinine Glucose POC Glucose 121 H 129 H Ferritin AST ALT Alkaline Phosphatase Lactate Dehydrogenase C-Reactive Protein Total Protein Albumin Lipase Arterial Blood Glucose Coronavirus (PCR) Positive A SARS-CoV-2 IgG Ab 02/26/20 02/27/20 02/27/20 22:00 07:58 12:04 WBC RBC MCHC Lymph % (Auto) Lymph # (Auto) Seg Neutrophils % Seg Neuts % (Manual) Lymphocytes % (Manual) Seg Neutrophils # Seg Neutrophils # Man Lymphocytes # (Manual) Monocytes # (Manual) D-Dimer ABG pH POC ABG pO2 ABG pO2 ABG O2 Saturation ABG Glucose Oxyhemoglobin Carboxyhemoglobin Sodium Potassium Chloride BUN Creatinine Glucose POC Glucose 134 H 115 H 146 H Ferritin AST ALT Alkaline Phosphatase Lactate Dehydrogenase C-Reactive Protein Total Protein Albumin Lipase Arterial Blood Glucose Coronavirus (PCR) SARS-CoV-2 IgG Ab 02/27/20 02/28/20 02/28/20 17:21 16:03 16:03 WBC RBC MCHC Lymph % (Auto) Lymph # (Auto) Seg Neutrophils % Seg Neuts % (Manual) Lymphocytes % (Manual) Seg Neutrophils # Seg Neutrophils # Man Lymphocytes # (Manual) Monocytes # (Manual) D-Dimer 995.51 H ABG pH POC ABG pO2 ABG pO2 ABG O2 Saturation ABG Glucose Oxyhemoglobin Carboxyhemoglobin Sodium Potassium Chloride BUN Creatinine Glucose POC Glucose 136 H Ferritin 464.3 H AST ALT Alkaline Phosphatase Lactate Dehydrogenase C-Reactive Protein Total Protein Albumin Lipase Arterial Blood Glucose Coronavirus (PCR) SARS-CoV-2 IgG Ab 02/28/20 02/28/20 02/28/20 16:03 16:03 16:03 WBC RBC MCHC Lymph % (Auto) Lymph # (Auto) Seg Neutrophils % Seg Neuts % (Manual) Lymphocytes % (Manual) Seg Neutrophils # Seg Neutrophils # Man Lymphocytes # (Manual) Monocytes # (Manual) D-Dimer ABG pH POC ABG pO2 ABG pO2 ABG O2 Saturation ABG Glucose Oxyhemoglobin Carboxyhemoglobin Sodium Potassium Chloride BUN 23 H Creatinine 0.4 L Glucose 120 H POC Glucose Ferritin AST 72 H ALT 117 H Alkaline Phosphatase 137 H Lactate Dehydrogenase 779 H C-Reactive Protein 6.10 H Total Protein Albumin 3.0 L Lipase Arterial Blood Glucose Coronavirus (PCR) SARS-CoV-2 IgG Ab Reactive A 02/28/20 02/29/20 02/29/20 22:06 07:38 11:11 WBC RBC MCHC Lymph % (Auto) Lymph # (Auto) Seg Neutrophils % Seg Neuts % (Manual) Lymphocytes % (Manual) Seg Neutrophils # Seg Neutrophils # Man Lymphocytes # (Manual) Monocytes # (Manual) D-Dimer ABG pH POC ABG pO2 ABG pO2 ABG O2 Saturation ABG Glucose Oxyhemoglobin Carboxyhemoglobin Sodium Potassium Chloride BUN Creatinine Glucose POC Glucose 119 H 121 H 129 H Ferritin AST ALT Alkaline Phosphatase Lactate Dehydrogenase C-Reactive Protein Total Protein Albumin Lipase Arterial Blood Glucose Coronavirus (PCR) SARS-CoV-2 IgG Ab 02/29/20 02/29/20 03/01/20 15:58 22:02 05:23 WBC RBC MCHC Lymph % (Auto) Lymph # (Auto) Seg Neutrophils % Seg Neuts % (Manual) Lymphocytes % (Manual) Seg Neutrophils # Seg Neutrophils # Man Lymphocytes # (Manual) Monocytes # (Manual) D-Dimer 1841.84 H ABG pH POC ABG pO2 ABG pO2 ABG O2 Saturation ABG Glucose Oxyhemoglobin Carboxyhemoglobin Sodium Potassium Chloride BUN Creatinine Glucose POC Glucose 118 H 141 H Ferritin AST ALT Alkaline Phosphatase Lactate Dehydrogenase C-Reactive Protein Total Protein Albumin Lipase Arterial Blood Glucose Coronavirus (PCR) SARS-CoV-2 IgG Ab 03/01/20 03/01/20 03/01/20 05:23 05:23 05:23 WBC 17.6 H RBC MCHC Lymph % (Auto) Lymph # (Auto) Seg Neutrophils % Seg Neuts % (Manual) 96.0 H Lymphocytes % (Manual) 2.0 L Seg Neutrophils # Seg Neutrophils # Man 16.9 H Lymphocytes # (Manual) 0.4 L Monocytes # (Manual) D-Dimer ABG pH POC ABG pO2 ABG pO2 ABG O2 Saturation ABG Glucose Oxyhemoglobin Carboxyhemoglobin Sodium Potassium Chloride BUN 19 H Creatinine 0.3 L Glucose 145 H POC Glucose Ferritin 323.9 H AST ALT 63 H Alkaline Phosphatase 132 H Lactate Dehydrogenase 746 H C-Reactive Protein 6.80 H Total Protein Albumin 2.9 L Lipase Arterial Blood Glucose Coronavirus (PCR) SARS-CoV-2 IgG Ab 03/01/20 03/01/20 03/01/20 06:30 08:53 11:07 WBC RBC MCHC Lymph % (Auto) Lymph # (Auto) Seg Neutrophils % Seg Neuts % (Manual) Lymphocytes % (Manual) Seg Neutrophils # Seg Neutrophils # Man Lymphocytes # (Manual) Monocytes # (Manual) D-Dimer ABG pH 7.463 H POC ABG pO2 71.9 L ABG pO2 ABG O2 Saturation ABG Glucose 147 H Oxyhemoglobin Carboxyhemoglobin 0.2 L Sodium Potassium Chloride BUN Creatinine Glucose POC Glucose 132 H 126 H Ferritin AST ALT Alkaline Phosphatase Lactate Dehydrogenase C-Reactive Protein Total Protein Albumin Lipase Arterial Blood Glucose 147 H Coronavirus (PCR) SARS-CoV-2 IgG Ab 03/01/20 03/01/20 03/02/20 15:50 21:24 08:08 WBC RBC MCHC Lymph % (Auto) Lymph # (Auto) Seg Neutrophils % Seg Neuts % (Manual) Lymphocytes % (Manual) Seg Neutrophils # Seg Neutrophils # Man Lymphocytes # (Manual) Monocytes # (Manual) D-Dimer ABG pH POC ABG pO2 ABG pO2 ABG O2 Saturation ABG Glucose Oxyhemoglobin Carboxyhemoglobin Sodium Potassium Chloride BUN Creatinine Glucose POC Glucose 122 H 142 H 152 H Ferritin AST ALT Alkaline Phosphatase Lactate Dehydrogenase C-Reactive Protein Total Protein Albumin Lipase Arterial Blood Glucose Coronavirus (PCR) SARS-CoV-2 IgG Ab 03/02/20 03/02/20 03/02/20 11:41 16:51 21:56 WBC RBC MCHC Lymph % (Auto) Lymph # (Auto) Seg Neutrophils % Seg Neuts % (Manual) Lymphocytes % (Manual) Seg Neutrophils # Seg Neutrophils # Man Lymphocytes # (Manual) Monocytes # (Manual) D-Dimer ABG pH POC ABG pO2 ABG pO2 ABG O2 Saturation ABG Glucose Oxyhemoglobin Carboxyhemoglobin Sodium Potassium Chloride BUN Creatinine Glucose POC Glucose 136 H 137 H 126 H Ferritin AST ALT Alkaline Phosphatase Lactate Dehydrogenase C-Reactive Protein Total Protein Albumin Lipase Arterial Blood Glucose Coronavirus (PCR) SARS-CoV-2 IgG Ab 03/03/20 03/03/20 03/03/20 08:05 13:10 19:32 WBC RBC MCHC Lymph % (Auto) Lymph # (Auto) Seg Neutrophils % Seg Neuts % (Manual) Lymphocytes % (Manual) Seg Neutrophils # Seg Neutrophils # Man Lymphocytes # (Manual) Monocytes # (Manual) D-Dimer ABG pH POC ABG pO2 ABG pO2 ABG O2 Saturation ABG Glucose Oxyhemoglobin Carboxyhemoglobin Sodium Potassium Chloride BUN 27 H Creatinine 0.5 L D Glucose 200 H POC Glucose 147 H 114 H Ferritin AST ALT Alkaline Phosphatase Lactate Dehydrogenase C-Reactive Protein Total Protein Albumin 3.1 L Lipase Arterial Blood Glucose Coronavirus (PCR) SARS-CoV-2 IgG Ab 03/03/20 03/03/20 03/03/20 19:32 19:39 22:44 WBC 20.3 H RBC MCHC Lymph % (Auto) Lymph # (Auto) Seg Neutrophils % Seg Neuts % (Manual) 90.0 H Lymphocytes % (Manual) 4.0 L Seg Neutrophils # Seg Neutrophils # Man 18.3 H Lymphocytes # (Manual) 0.8 L Monocytes # (Manual) 1.2 H D-Dimer ABG pH POC ABG pO2 ABG pO2 ABG O2 Saturation ABG Glucose Oxyhemoglobin Carboxyhemoglobin Sodium Potassium Chloride BUN Creatinine Glucose POC Glucose 186 H 159 H Ferritin AST ALT Alkaline Phosphatase Lactate Dehydrogenase C-Reactive Protein Total Protein Albumin Lipase Arterial Blood Glucose Coronavirus (PCR) SARS-CoV-2 IgG Ab 03/04/20 03/04/20 03/04/20 06:06 06:06 07:52 WBC 17.2 H RBC MCHC Lymph % (Auto) Lymph # (Auto) Seg Neutrophils % Seg Neuts % (Manual) 88.0 H Lymphocytes % (Manual) 5.0 L Seg Neutrophils # 15.3 H Seg Neutrophils # Man 15.1 H Lymphocytes # (Manual) 0.9 L Monocytes # (Manual) D-Dimer ABG pH POC ABG pO2 ABG pO2 ABG O2 Saturation ABG Glucose Oxyhemoglobin Carboxyhemoglobin Sodium Potassium Chloride BUN 31 H Creatinine 0.4 L Glucose 144 H POC Glucose 131 H Ferritin AST ALT Alkaline Phosphatase Lactate Dehydrogenase C-Reactive Protein Total Protein Albumin 3.0 L Lipase Arterial Blood Glucose Coronavirus (PCR) SARS-CoV-2 IgG Ab 03/04/20 03/04/20 03/04/20 11:30 11:40 16:21 WBC RBC MCHC Lymph % (Auto) Lymph # (Auto) Seg Neutrophils % Seg Neuts % (Manual) Lymphocytes % (Manual) Seg Neutrophils # Seg Neutrophils # Man Lymphocytes # (Manual) Monocytes # (Manual) D-Dimer ABG pH 7.489 H POC ABG pO2 ABG pO2 54.6 L ABG O2 Saturation 90.4 L ABG Glucose Oxyhemoglobin 89.1 L Carboxyhemoglobin Sodium Potassium Chloride BUN Creatinine Glucose POC Glucose 121 H 155 H Ferritin AST ALT Alkaline Phosphatase Lactate Dehydrogenase C-Reactive Protein Total Protein Albumin Lipase Arterial Blood Glucose Coronavirus (PCR) SARS-CoV-2 IgG Ab 03/05/20 03/05/20 03/05/20 12:01 16:48 16:48 WBC RBC MCHC Lymph % (Auto) Lymph # (Auto) Seg Neutrophils % Seg Neuts % (Manual) Lymphocytes % (Manual) Seg Neutrophils # Seg Neutrophils # Man Lymphocytes # (Manual) Monocytes # (Manual) D-Dimer 1170.89 H ABG pH POC ABG pO2 ABG pO2 ABG O2 Saturation ABG Glucose Oxyhemoglobin Carboxyhemoglobin Sodium Potassium Chloride BUN Creatinine Glucose POC Glucose 116 H Ferritin 348.4 H AST ALT Alkaline Phosphatase Lactate Dehydrogenase C-Reactive Protein Total Protein Albumin Lipase Arterial Blood Glucose Coronavirus (PCR) SARS-CoV-2 IgG Ab 03/05/20 03/05/20 03/06/20 16:48 17:40 09:40 WBC RBC MCHC Lymph % (Auto) Lymph # (Auto) Seg Neutrophils % Seg Neuts % (Manual) Lymphocytes % (Manual) Seg Neutrophils # Seg Neutrophils # Man Lymphocytes # (Manual) Monocytes # (Manual) D-Dimer ABG pH POC ABG pO2 ABG pO2 77.4 L ABG O2 Saturation ABG Glucose Oxyhemoglobin 94.5 L Carboxyhemoglobin Sodium Potassium Chloride BUN Creatinine Glucose POC Glucose 233 H Ferritin AST ALT Alkaline Phosphatase Lactate Dehydrogenase 619 H C-Reactive Protein 3.50 H Total Protein Albumin Lipase Arterial Blood Glucose Coronavirus (PCR) SARS-CoV-2 IgG Ab 03/06/20 03/06/20 03/07/20 11:52 17:05 04:22 WBC 16.6 H RBC MCHC Lymph % (Auto) 7.9 L Lymph # (Auto) Seg Neutrophils % 87.5 H Seg Neuts % (Manual) Lymphocytes % (Manual) Seg Neutrophils # 14.5 H Seg Neutrophils # Man Lymphocytes # (Manual) Monocytes # (Manual) D-Dimer ABG pH POC ABG pO2 ABG pO2 ABG O2 Saturation ABG Glucose Oxyhemoglobin Carboxyhemoglobin Sodium Potassium Chloride BUN Creatinine Glucose POC Glucose 168 H 163 H Ferritin AST ALT Alkaline Phosphatase Lactate Dehydrogenase C-Reactive Protein Total Protein Albumin Lipase Arterial Blood Glucose Coronavirus (PCR) SARS-CoV-2 IgG Ab 03/07/20 03/07/20 03/07/20 04:22 11:27 16:55 WBC RBC MCHC Lymph % (Auto) Lymph # (Auto) Seg Neutrophils % Seg Neuts % (Manual) Lymphocytes % (Manual) Seg Neutrophils # Seg Neutrophils # Man Lymphocytes # (Manual) Monocytes # (Manual) D-Dimer ABG pH POC ABG pO2 ABG pO2 ABG O2 Saturation ABG Glucose Oxyhemoglobin Carboxyhemoglobin Sodium 134 L Potassium Chloride BUN 27 H Creatinine 0.4 L Glucose 109 H POC Glucose 108 H 140 H Ferritin AST ALT Alkaline Phosphatase Lactate Dehydrogenase C-Reactive Protein Total Protein 6.1 L Albumin 3.1 L Lipase Arterial Blood Glucose Coronavirus (PCR) SARS-CoV-2 IgG Ab 03/08/20 03/08/20 03/09/20 17:17 18:37 12:10 WBC RBC MCHC Lymph % (Auto) Lymph # (Auto) Seg Neutrophils % Seg Neuts % (Manual) Lymphocytes % (Manual) Seg Neutrophils # Seg Neutrophils # Man Lymphocytes # (Manual) Monocytes # (Manual) D-Dimer ABG pH POC ABG pO2 ABG pO2 ABG O2 Saturation ABG Glucose Oxyhemoglobin Carboxyhemoglobin Sodium Potassium Chloride BUN Creatinine Glucose POC Glucose 145 H 231 H 115 H Ferritin AST ALT Alkaline Phosphatase Lactate Dehydrogenase C-Reactive Protein Total Protein Albumin Lipase Arterial Blood Glucose Coronavirus (PCR) SARS-CoV-2 IgG Ab 03/10/20 03/10/20 03/12/20 11:23 15:34 10:19 WBC RBC MCHC Lymph % (Auto) Lymph # (Auto) Seg Neutrophils % Seg Neuts % (Manual) Lymphocytes % (Manual) Seg Neutrophils # Seg Neutrophils # Man Lymphocytes # (Manual) Monocytes # (Manual) D-Dimer ABG pH POC ABG pO2 ABG pO2 ABG O2 Saturation ABG Glucose Oxyhemoglobin Carboxyhemoglobin Sodium Potassium Chloride BUN Creatinine Glucose POC Glucose 125 H Ferritin 319.4 H AST ALT Alkaline Phosphatase Lactate Dehydrogenase C-Reactive Protein Total Protein 5.9 L Albumin 3.0 L Lipase 86 H Arterial Blood Glucose Coronavirus (PCR) SARS-CoV-2 IgG Ab 03/13/20 03/13/20 03/14/20 07:23 07:23 04:40 WBC 12.2 H RBC MCHC Lymph % (Auto) Lymph # (Auto) Seg Neutrophils % Seg Neuts % (Manual) Lymphocytes % (Manual) Seg Neutrophils # Seg Neutrophils # Man Lymphocytes # (Manual) Monocytes # (Manual) D-Dimer ABG pH POC ABG pO2 ABG pO2 ABG O2 Saturation ABG Glucose Oxyhemoglobin Carboxyhemoglobin Sodium 136 L Potassium Chloride BUN 20 H Creatinine 0.5 L Glucose POC Glucose Ferritin AST ALT Alkaline Phosphatase Lactate Dehydrogenase C-Reactive Protein Total Protein 6.1 L Albumin 3.1 L Lipase 68 H Arterial Blood Glucose Coronavirus (PCR) SARS-CoV-2 IgG Ab Chest x-ray: pending Allied health notes reviewed: RT
--- NOTE | 2020-03-14 14:47 | XRay Report ---
CHEST 1 VIEW 03/14/2020 1:29 PM INDICATION / CLINICAL INFORMATION: Pneumonia; COVID. COMPARISON: 02/24/2020 FINDINGS: SUPPORT DEVICES: None. HEART / MEDIASTINUM: No significant abnormality. LUNGS / PLEURA: Patchy bilateral pulmonary opacities have mildly worsened. No pneumothorax. ADDITIONAL FINDINGS: No significant additional findings. IMPRESSION: 1. Mild worsening of patchy bilateral pulmonary opacity since the prior study. Signer Name: Blas Brewer MD Signed: 03/14/2020 2:43 PM Workstation Name: [id number]
--- NOTE | 2020-03-14 19:16 | Progress Note ---
Assessment and Plan Assessment and plan: -- Acute hypoxemic respiratory failure Current Visit: Yes Status: Acute Plan to address problem: Patient on 40 L high flow oxygen Worsening clinical picture Patient may need intubation Patient to transfer to ICU Dr. Love discussed the case with me Patient transferred to ICU Patient on high flow oxygen Today patient is on 4 L of nasal cannula oxygen -- Covid pneumonia Current Visit: Yes Status: Acute Plan to address problem: Patient is coronavirus PCR positive on 02/26/2020 Patient is also SARS-CoV-2 IgG positive Patient is not a candidate for Covid convalescent plasma Steroids, remdesivir for total 5 days Continue anticoagulation Prone positioning as possible High flow oxygen Wean to nasal cannula oxygen Home O2 evaluation -- Pneumonia Current Visit: Yes Status: Acute Plan to address problem: Pneumonia protocol: Chest x-ray, CBC, CMP, supplemental oxygen, nebulizer therapy, pulse oximetry, IV antibiotic therapy, pulmonary toilet, blood culture. -- severe sepsis Remains hypoxic likely due to bilateral pneumonia Continue IV antibiotics --Abdominal Pain; acute gastritis supportive care, abdominal ultrasound, possible GI consult if no improvement --DVT prophylaxis Current Visit: Yes Status: Acute Plan to address problem: High-dose Lovenox Monitor closely and adjust the management as needed Plan of care reviewed with the patient and her nurse as well as the case management Consults and recommendations noted and appreciated Evaluate for home oxygen Possible discharge home tomorrow if stable Consults and recommendations noted and appreciated 50 YO Female with Obesity Hypoventilation Syndrome presents to ED for evaluation. Patient states that she has "been feeling sick" for the past 2 weeks with persistent symptoms over the same timeframe. Patient was seen and evaluated by her primary care physician and treated with oral antibiotics for outpatient pneumonia. Patient states that she has experienced persistent symptoms in spite of of compliance with medication. Patient reports fever, dry cough, shortness of breath, decreased exercise tolerance, nausea, multiple episodes of vomiting, multiple loose stools, loss of sense of smell, loss of sense of taste, fatigue, malaise, body aches. Patient transported to [facility] via private vehicle for further care and evaluation of the aforementioned symptoms. Patient seen and evaluated in the emergency department. All lab and imaging studies reviewed. Patient found to have a fever to 102.1 F, as well as a pulse oximetry of 88% with exertion on room air which is consistent with acute hypo xemic respiratory failure. Patient underwent chest x-ray which revealed bilateral pneumonia. Patient admitted to medical floor and initiated on pneumonia protocol as well as coronavirus protocol. Coronavirus PCR ordered in the emergency department and is pending at time of admission. Patient ack nowledges fever, but denies chest pain, palpitation, skin rash, recent ill contacts, trauma, or known exposure to COVID-19. No medication listed at time of admission. No prior admission for review. 02/29/2020 Patient alert, awake. Having cough. Having mild shortness of breath at rest. Patient is on vapotherm, FIO2 100% and O2 saturation 90%. Patient switched to BIPAP. But patient not using it.Patient afebrile. No leukocytosis. Complaining headache at times.Patients [place] virus PCR is Positive. Patients chest xray done 02/24/20 reported Patchy bilateral pulmonary opacities are concerning for infection/pneumonia. 03/01/2020 03/01/2020 Patient on high flow oxygen and BiPAP 03/02/2020 Patient still on high flow oxygen and BiPAP 03/03/2020 Patient with worsening inflammatory markers Chest x-ray worsening with extensive consolidations Patient will be transferred to ICU 03/04/2020 Patient on high flow oxygen-40 L Worsening pulmonary alveolar infiltrates Possible intubation !05/07/19 On High flow oxygen 03/07/2020 Patient still on high flow oxygen Not intubated 03/08- on HFNC 03/10: Clinically showing some improvement as HFNC is improving. Continue weaning as tolerated 03/11: Continue supportive care, weaning oxygen as tolerated. Can transfer to 3rd floor if weaned off HFNC. 03/12: Patient respiratory meier continues to improve, did have some abdominal pain with FOOD, Will check LFT, ammonia, and Lipase and abdominal ultrasound, considering patient is 35% FIO2, will transfer to [facility]. 03/14; patient feels slightly better abdominal pain significantly improved Patient was on high flow oxygen for few days, currently on 4 L nasal cannula oxygen Wean and titrate to O2 sats more than 90% Check resting and ambulatory room air O2 sats, Case management for possible home health Possible discharge in 1 to 2 days if stable and if cleared by pulmonary History Interval history: I have seen and examined the patient at the bedside this morning Patient's chart and medications reviewed Patient's abdominal pain improved Mild nausea no vomiting Vital signs noted Hospitalist Physical - Constitutional Vitals: Temp Pulse Resp BP Pulse Ox 98.0 F 85 22 90/48 96 03/14/20 05:28 03/14/20 05:28 03/14/20 10:00 03/14/20 05:28 03/14/20 10:00 General appearance: Present: no acute distress, well-nourished, obese - EENT Eyes: Present: PERRL, EOM intact - Neck Neck: Present: supple, normal ROM - Respiratory Respiratory effort: normal Respiratory: bilateral: diminished, negative: rales, rhonchi, wheezing - Cardiovascular Rhythm: regular Heart Sounds: Present: S1 & S2 - Extremities Extremities: no ischemia, No edema - Abdominal General gastrointestinal: soft, non-tender, non-distended, normal bowel sounds - Integumentary Integumentary: Present: clear, warm - Psychiatric Psychiatric: appropriate mood/affect, cooperative - Neurologic Neurologic: moves all extremities HEART Score - HEART Score Troponin: Troponin T < 0.010 ng/mL (0.00-0.029) 02/28/20 16:03 Results - Labs CBC & Chem 7: 03/13/20 07:23 03/13/20 07:23 Labs: Laboratory Last Values WBC 12.2 K/mm3 (4.5-11.0) H 03/13/20 07:23 RBC 4.00 M/mm3 (3.65-5.03) 03/13/20 07:23 Hgb 12.0 gm/dl (10.1-14.3) 03/13/20 07:23 Hct 36.2 % (30.3-42.9) 03/13/20 07:23 MCV 90 fl (79-97) 03/13/20 07:23 MCH 30 pg (28-32) 03/13/20 07:23 MCHC 33 % (30-34) 03/13/20 07:23 RDW 13.8 % (13.2-15.2) 03/13/20 07:23 Plt Count 215 K/mm3 (140-440) 03/13/20 07:23 Lymph % (Auto) 7.9 % (13.4-35.0) L 03/07/20 04:22 [place] % (Auto) 3.5 % (0.0-7.3) 03/07/20 04:22 Eos % (Auto) 0.9 % (0.0-4.3) 03/07/20 04:22 Baso % (Auto) 0.2 % (0.0-1.8) 03/07/20 04:22 Lymph # (Auto) 1.3 K/mm3 (1.2-5.4) 03/07/20 04:22 [place] # (Auto) 0.6 K/mm3 (0.0-0.8) 03/07/20 04:22 Eos # (Auto) 0.2 K/mm3 (0.0-0.4) 03/07/20 04:22 Baso # (Auto) 0.0 K/mm3 (0.0-0.1) 03/07/20 04:22 Add Manual Diff Complete 03/04/20 06:06 Total Counted 100 03/04/20 06:06 Seg Neutrophils % 87.5 % (40.0-70.0) H 03/07/20 04:22 Seg Neuts % (Manual) 88.0 % (40.0-70.0) H 03/04/20 06:06 Lymphocytes % (Manual) 5.0 % (13.4-35.0) L 03/04/20 06:06 Reactive Lymphs % (Man) 1.0 % 03/04/20 06:06 Monocytes % (Manual) 4.0 % (0.0-7.3) 03/04/20 06:06 Eosinophils % (Manual) 1.0 % (0.0-4.3) 03/04/20 06:06 Metamyelocytes % 1.0 % 03/04/20 06:06 Nucleated RBC % Not Reportable 03/04/20 06:06 Seg Neutrophils # 14.5 K/mm3 (1.8-7.7) H 03/07/20 04:22 Seg Neutrophils # Man 15.1 K/mm3 (1.8-7.7) H 03/04/20 06:06 Band Neutrophils # 0.0 K/mm3 03/04/20 06:06 Lymphocytes # (Manual) 0.9 K/mm3 (1.2-5.4) L 03/04/20 06:06 Abs React Lymphs (Man) 0.2 K/mm3 03/04/20 06:06 Monocytes # (Manual) 0.7 K/mm3 (0.0-0.8) 03/04/20 06:06 Eosinophils # (Manual) 0.2 K/mm3 (0.0-0.4) 03/04/20 06:06 Basophils # (Manual) 0.0 K/mm3 (0.0-0.1) 03/04/20 06:06 Metamyelocytes # 0.2 K/mm3 03/04/20 06:06 Myelocytes # 0.0 K/mm3 03/04/20 06:06 Promyelocytes # 0.0 K/mm3 03/04/20 06:06 Blast Cells # 0.0 K/mm3 03/04/20 06:06 WBC Morphology Not Reportable 03/04/20 06:06 Hypersegmented Neuts Not Reportable 03/04/20 06:06 Hyposegmented Neuts Not Reportable 03/04/20 06:06 Hypogranular Neuts Not Reportable 03/04/20 06:06 Smudge Cells Not Reportable 03/04/20 06:06 Toxic Granulation Not Reportable 03/04/20 06:06 Toxic Vacuolation Not Reportable 03/04/20 06:06 Dohle Bodies Not Reportable 03/04/20 06:06 Pelger-Huet Anomaly Not Reportable 03/04/20 06:06 Mian Rods Not Reportable 03/04/20 06:06 Platelet Estimate Consistent w auto 03/04/20 06:06 Clumped Platelets Not Reportable 03/04/20 06:06 Plt Clumps, EDTA Not Reportable 03/04/20 06:06 Large Platelets Not Reportable 03/04/20 06:06 Giant Platelets Not Reportable 03/04/20 06:06 Platelet Satelliting Not Reportable 03/04/20 06:06 Plt Morphology Comment Not Reportable 03/04/20 06:06 RBC Morphology Normal 03/04/20 06:06 Dimorphic RBCs Not Reportable 03/04/20 06:06 Polychromasia Not Reportable 03/04/20 06:06 Hypochromasia Not Reportable 03/04/20 06:06 Poikilocytosis Not Reportable 03/04/20 06:06 Anisocytosis Not Reportable 03/04/20 06:06 Microcytosis Not Reportable 03/04/20 06:06 Macrocytosis Not Reportable 03/04/20 06:06 Spherocytes Not Reportable 03/04/20 06:06 Pappenheimer Bodies Not Reportable 03/04/20 06:06 Sickle Cells Not Reportable 03/04/20 06:06 Target Cells Not Reportable 03/04/20 06:06 Tear Drop Cells Not Reportable 03/04/20 06:06 Ovalocytes Not Reportable 03/04/20 06:06 Helmet Cells Not Reportable 03/04/20 06:06 Weiss-Fuig Bodies Not Reportable 03/04/20 06:06 [place] Rings Not Reportable 03/04/20 06:06 Nunu Cells Not Reportable 03/04/20 06:06 Bite Cells Not Reportable 03/04/20 06:06 Crenated Cell Not Reportable 03/04/20 06:06 Elliptocytes Not Reportable 03/04/20 06:06 Acanthocytes (Spur) Not Reportable 03/04/20 06:06 Rouleaux Not Reportable 03/04/20 06:06 Hemoglobin C Crystals Not Reportable 03/04/20 06:06 Schistocytes Not Reportable 03/04/20 06:06 Malaria parasites Not Reportable 03/04/20 06:06 Jesus Bodies Not Reportable 03/04/20 06:06 Hem Pathologist Commnt No 03/04/20 06:06 D-Dimer 1170.89 ng/mlDDU (0-234) H 03/05/20 16:48 ABG pH 7.439 pH Units (7.350-7.450) 03/06/20 09:40 POC ABG pCO2 40.0 mmHg (32.0-48.0) 03/01/20 08:53 ABG pCO2 36.8 mm Hg 03/06/20 09:40 POC ABG pO2 71.9 mmHg (83-108) L 03/01/20 08:53 ABG pO2 77.4 mm Hg (80.0-90.0) L 03/06/20 09:40 POC ABG HCO3 28.0 03/01/20 08:53 ABG HCO3 24.4 mmol/L (20.0-26.0) 03/06/20 09:40 ABG O2 Saturation 96.0 % (95.0-99.0) 03/06/20 09:40 ABG O2 Content 18.4 (0.0-44) 03/06/20 09:40 POC ABG Base Excess 4.0 03/01/20 08:53 ABG Base Excess 0.5 mmol/L (-2.0-3.0) 03/06/20 09:40 ABG Hemoglobin 13.8 gm/dl (12.0-16.0) 03/06/20 09:40 ABG Oxyhemoglobin 94.1 (94-98) 03/01/20 08:53 ABG Carboxyhemoglobin 1.1 % (0.0-5.0) 03/06/20 09:40 ABG Methemoglobin 0.4 % (0.0-1.5) 03/06/20 09:40 ABG Sodium 139.8 mmol/L (136.0-145.0) 03/01/20 08:53 ABG Potassium 3.9 mmol/L (3.40-4.50) 03/01/20 08:53 ABG Chloride 105.0 mmol/L (98-107) 03/01/20 08:53 ABG Glucose 147 mg/dL (65-95) H 03/01/20 08:53 Oxyhemoglobin 94.5 % (95.0-99.0) L 03/06/20 09:40 Carboxyhemoglobin 0.2 (0.5-1.5) L 03/01/20 08:53 FiO2 100 % 03/06/20 09:40 Sodium 136 mmol/L (137-145) L 03/13/20 07:23 Potassium 3.6 mmol/L (3.6-5.0) 03/13/20 07:23 Chloride 101.3 mmol/L (98-107) 03/13/20 07:23 Carbon Dioxide 27 mmol/L (22-30) 03/13/20 07:23 Anion Gap 11 mmol/L 03/13/20 07:23 BUN 20 mg/dL (7-17) H 03/13/20 07:23 Creatinine 0.5 mg/dL (0.6-1.2) L 03/13/20 07:23 Estimated GFR > 60 ml/min 03/13/20 07:23 BUN/Creatinine Ratio 40 % 03/13/20 07:23 Glucose 88 mg/dL (65-100) 03/13/20 07:23 POC Glucose 125 mg/dL (70-105) H 03/10/20 11:23 Lactic Acid 1.00 mmol/L (0.7-2.0) 02/24/20 14:31 Calcium 8.9 mg/dL (8.4-10.2) 03/13/20 07:23 Ferritin 319.4 ng/mL (10.0-200.0) H 03/10/20 15:34 Total Bilirubin 0.20 mg/dL (0.1-1.2) 03/13/20 07:23 Direct Bilirubin < 0.2 mg/dL (0-0.2) 03/12/20 10:19 Indirect Bilirubin 0.0 mg/dL 03/12/20 10:19 AST 23 units/L (5-40) 03/13/20 07:23 ALT 51 units/L (7-56) 03/13/20 07:23 Alkaline Phosphatase 66 units/L (35-129) 03/13/20 07:23 Lactate Dehydrogenase 619 units/L (91-180) H 03/05/20 16:48 Troponin T < 0.010 ng/mL (0.00-0.029) 02/28/20 16:03 C-Reactive Protein 0.30 mg/dL (0.00-1.30) 03/10/20 15:34 NT-Pro-B Natriuret Pep 47.67 pg/mL (0-450) 03/02/20 16:51 Total Protein 6.1 g/dL (6.3-8.2) L 03/13/20 07:23 Albumin 3.1 g/dL (3.9-5) L 03/13/20 07:23 Albumin/Globulin Ratio 1.0 % 03/13/20 07:23 Lipase 68 units/L (13-60) H 03/14/20 04:40 Procalcitonin < 0.05 ng/mL (<0.15) 02/25/20 14:21 Arterial Blood Glucose 147 mg/dL (65-95) H 03/01/20 08:53 Arterial Blood Ionized Calcium 4.7 mg/dL (4.6-5.3) 03/01/20 08:53 Urine Color Yellow (Yellow) 02/24/20 Unknown Urine Turbidity Clear (Clear) 02/24/20 Unknown Urine pH 6.0 (5.0-7.0) 02/24/20 Unknown Ur Specific [place] 1.023 (1.003-1.030) 02/24/20 Unknown Urine Protein 100 mg/dl mg/dL (Negative) 02/24/20 Unknown Urine Glucose (UA) Neg mg/dL (Negative) 02/24/20 Unknown Urine Ketones Neg mg/dL (Negative) 02/24/20 Unknown Urine Blood Neg (Negative) 02/24/20 Unknown Urine Nitrite Neg (Negative) 02/24/20 Unknown Urine Bilirubin Neg (Negative) 02/24/20 Unknown Urine Urobilinogen 2.0 mg/dL (<2.0) 02/24/20 Unknown Ur Leukocyte Esterase Neg (Negative) 02/24/20 Unknown Urine WBC (Auto) 4.0 /HPF (0.0-6.0) 02/24/20 Unknown Urine RBC (Auto) 2.0 /HPF (0.0-6.0) 02/24/20 Unknown U Epithel Cells (Auto) 3.0 /HPF (0-13.0) 02/24/20 Unknown Urine Bacteria (Auto) 1+ /HPF (Negative) 02/24/20 Unknown Urine Mucus 1+ /HPF 02/24/20 Unknown Coronavirus (PCR) Positive (Negative) A 02/26/20 10:45 SARS-CoV-2 IgG Ab Reactive (NonReactive) A 02/28/20 16:03 - Diagnostic Impressions Diagnostic Impressions: Echocardiogram 03/01/20 09:12 Transthoracic Echocardiogram Indication: Eval EF; PA HTN BP: 121/78 HR: 90 Conclusions *Global left ventricular systolic function is normal. *The estimated ejection fraction is 60-65%. *The right ventricular global systolic function is normal. *There is no evidence of aortic regurgitation. *There is trace of mitral regurgitation. *There is trace tricuspid regurgitation. *The right ventricular systolic pressure is calculated at 28 mmHg. *There is trace pulmonic regurgitation. Findings Left Ventricle: The left ventricular chamber size is normal. There is no left ventricular hypertrophy. Global left ventricular wall motion and contractility are within normal limits. Global left ventricular systolic function is normal. The estimated ejection fraction is 60-65%. There is an E to A reversal in the mitral valve flow pattern suggestive of diastolic dysfunction. Left Atrium: The left atrial chamber size is normal. Right Ventricle: The right ventricular cavity size is normal. The right ventricular global systolic function is normal. Right Atrium: The right atrial cavity size is normal. Aortic Valve: There is no evidence of aortic valve thickening. There is no evidence of aortic regurgitation. Mitral Valve: The mitral valve leaflets do not appear thickened. There is trace of mitral regurgitation. Tricuspid Valve: The tricuspid valve leaflets are normal. There is trace tricuspid regurgitation. The right ventricular systolic pressure is calculated at 28 mmHg. Pulmonic Valve: There is no evidence of pulmonic valve thickening. There is trace pulmonic regurgitation. Pericardium: There is no pericardial effusion. Aorta: The aorta appears normal. Venous: The inferior vena cava appears normal in size. Measurements Chambers 2D Name Value Normal Range IVSd (2D) 0.97 cm (0.6 - 1.1) LVPWd (2D) 1.05 cm (0.6 - 1.1) LVIDd (2D) 3.87 cm (3.7 - 5.6) LVIDs (2D) 2.41 cm (2 - 3.8) LV FS (2D) 37.69 % - EF Teichholz (2D) 68.47 % - Ao root diameter (2D) 2.92 cm (2 - 3.7) Volumes/Mass Name Value Normal Range LA ESV SP 4CH (A/L) 32.2 ml - LA ESV SP 2CH (A/L) 24.78 ml - LA ESV BP (A/L) 29.52 ml - LA ESV BP (A/L) index 16.68 ml/m2 - LA ESV SP 4CH (MOD) 29.62 ml - LA ESV SP 2CH (MOD) 23.68 ml - LA ESV BP (MOD) 27.57 ml - LA ESV BP (MOD) index 15.58 ml/m2 - Diastolic/Systolic Function Name Value Normal Range MV E-wave Vmax 0.59 m/sec - MV deceleration time 258.54 msec - MV A-wave Vmax 0.73 m/sec - MV E:A ratio 0.81 ratio - Aortic Valve Name Value Normal Range AV Vmax 1.33 m/sec - AV VTI 22.87 cm - AV peak gradient 7.09 mmHg - AV mean gradient 4.39 mmHg - LVOT diameter 1.52 cm - LVOT Vmax 1.22 m/sec - LVOT VTI 20.85 cm - LVOT peak gradient 5.96 mmHg - LVOT mean gradient 2.91 mmHg - SV LVOT 37.79 ml - VINEET (continuity Vmax) 1.66 cm2 - VINEET (continuity VTI) 1.65 cm2 - Ascending Ao 2.78 cm - Tricuspid Valve Name Value Normal Range TR Vmax 2.48 m/sec - TR peak gradient 25 mmHg - RAP 3 mmHg - RVSP 28 mmHg - IVC diameter 1.77 cm (1.2 - 2.3) Pulmonic Valve/Qp:Qs Name Value Normal Range PV Vmax 0.85 m/sec - PV peak gradient 2.9 mmHg - AL end-diastolic Vmax 1.26 m/sec - PV acceleration time 144.62 msec - [place]/IV: Voiding Method Diaper IV Catheter Type [Right Peripheral IV Forearm] IV Catheter Type [Right Peripheral IV Antecubital] Active Medications - Current Medications Current Medications: Generic Name Dose Route Start Last Admin Trade Name Freq PRN Reason Stop Dose Admin Acetaminophen 650 mg 02/24/20 15:14 03/14/20 10:14 Acetaminophen 325 Mg Tab PO 650 mg Q4H PRN Administration Pain MILD(1-3)/Fever >100.5/DANGELO Albuterol 2.5 mg 02/24/20 15:14 Albuterol 2.5 Mg/3 Ml Nebu IH Q4HRT PRN Shortness Of Breath Ascorbic Acid 1,000 mg 02/29/20 23:45 03/14/20 09:52 Ascorbic Acid 500 Mg Tab PO 1,000 mg BID UTE Administration Benzonatate 100 mg 02/25/20 22:00 03/14/20 09:52 Benzonatate 100 Mg Cap PO 100 mg BID UTE Administration Cholecalciferol 5,000 unit 03/01/20 10:00 03/14/20 09:52 Cholecalciferol (Vit D3) 5,000 Unit Tab PO 5,000 unit DAILY UTE Administration Enoxaparin Sodium 80 mg 02/29/20 23:45 03/14/20 09:52 Enoxaparin 80 Mg/0.8 Ml Inj SUB-Q 80 mg Q12HR UTE Administration Protocol Famotidine 10 mg 03/13/20 23:00 03/14/20 09:52 Famotidine 20 Mg Tab PO 10 mg BID UTE Administration Hydrocodone Bit/Homatropine Methylb 10 ml 02/26/20 15:00 03/12/20 11:23 Hydrocodone/Homatropine 5-1.5mg /5 Ml Oral Liqd Unit Dose PO 10 ml Q6H PRN Administration Cough Morphine Sulfate 2 mg 03/11/20 19:35 03/13/20 10:41 Morphine 2 Mg/1 Ml Inj IV 2 mg Q4H PRN Administration Pain, Moderate (4-6) Ondansetron HCl 4 mg 02/24/20 15:14 Ondansetron 4 Mg/2 Ml Inj IV Q8H PRN Nausea And Vomiting Sodium Chloride 10 ml 02/24/20 22:00 03/14/20 09:53 Sodium Chloride 0.9% 10 Ml Flush Syringe IV 10 ml BID UTE Administration Sodium Chloride 10 ml 02/24/20 15:14 Sodium Chloride 0.9% 10 Ml Flush Syringe IV PRN PRN LINE FLUSH Tramadol HCl 50 mg 02/29/20 22:10 03/11/20 09:15 Tramadol 50 Mg Tab PO 50 mg Q6H PRN Administration Pain, Moderate (4-6) Nutrition/Malnutrition Assess - Dietary Evaluation Nutrition/Malnutrition Findings: Nutrition Notes Start: 03/02/20 12:47 Freq: Status: Active Protocol: Document 03/02/20 12:47 EN (Rec: 03/02/20 12:53 EN [email or web address]) Co-Sign 03/02/20 12:47 MK Nutrition Notes Need for Assessment generated from: LOS Initial or Follow up Brief Note Current Diagnosis Sepsis Other Pertinent Diagnosis COVID-19+, Pneu, acute respiratory failure Current Diet Cardiac [place] Body Weight (kg) 0 Subjective/Other Information Pt screened for LOS. Unable to reach pt by phone x2 for assessment. RN unsure of current PO intakes for today but states pt has not had any N/V/D. Per chart, 100% meal consumption consistently Nutrition Intervention Anticipated Discharge Needs: Cardiac diet Revisit per MD consult or patient Sign Off request:
[2020-03-14] MEDS: traMADol 50 MG TAB PO PRN (21:12)
[2020-03-14] MEDS: FAMOTIDINE 10 MG TAB PO SCH (21:27)
[2020-03-15] MEDS: BENZONATATE 100 MG CAP PO SCH ×2 (09:36→22:33)
[2020-03-15] MEDS: ENOXAPARIN 80 MG/0.8 ML INJ SUB-Q SCH ×2 (09:37→22:32)
[2020-03-15] MEDS: FAMOTIDINE 20 MG TAB PO SCH ×2 (09:37→22:33)
[2020-03-15] MEDS: ASCORBIC ACID 500 MG TAB PO SCH ×2 (09:37→22:33)
[2020-03-15] MEDS: CHOLECALCIFEROL (VIT D3) 5,000 UNIT TAB PO SCH (09:42)
--- NOTE | 2020-03-15 15:44 | Progress Note ---
Assessment and Plan Patient alert, awake. Having cough. Having mild shortness of breath at rest. Patients O2 requirements came down . Patient is on 2 litres o2. O2 saturation running 95%. Patient afebrile. Has mild leukocytosis. Patients Hu[place] virus PCR is Positive. Patients chest xray done 02/24/20 reported Patchy bilateral pulmonary opacities are concerning for infection/pneumonia. Atypical/viral etiologies should be considered. Patients inflammatory markers Ferritin 319.4 LDH 68 C reactive protein .3 Troponin .01 D Dimer 1170.89 Patient was on REMDESIVIR.Finished course of REMDESIVIR. Patient presently on Methyl prednisone and S/C Lovenox 80 mg q 12 hours. Patient has CTA of chest 02/29/[address] evidence for pulmonary embolism. Diffuse bilateral airspace disease. The imaging appearance is nonspecific and could be seen in the setting of bacterial pneumonia or atypical/viral etiologies. There is mild mediastinal adenopathy. No associated effusions. Patients repeat chest xray 03/14/20 reported Mild worsening of patchy bilateral pulmonary opacity since the prior study. Patient has venous doppler studies of legs 02/29/20 reported No sonographic evidence for DVT in either lower extremity. ABG on 100% FIO2. ABG pH 7.463 (7.320-7.450) H 03/01/20 08:53 POC ABG pCO2 40.0 mmHg (32.0-48.0) 03/01/20 08:53 POC ABG pO2 71.9 mmHg (83-108) L 03/01/20 08:53 POC ABG HCO3 28.0 03/01/20 08:53 Recommend ABgs on room air. - Patient Problems (1) Acute hypoxemic respiratory failure Current Visit: Yes Status: Acute Plan to address problem: Patient is on O2 2 litres via nasal canula. Albuterol inhaler. S/C Lovenox (2) Obesity hypoventilation syndrome Current Visit: Yes Status: Acute Plan to address problem: Recommend to loose weight. ABG on 100% FIO2. ABG pH 7.463 (7.320-7.450) H 03/01/20 08:53 POC ABG pCO2 40.0 mmHg (32.0-48.0) 03/01/20 08:53 POC ABG pO2 71.9 mmHg (83-108) L 03/01/20 08:53 POC ABG HCO3 28.0 03/01/20 08:53 ABG results not suggestive of Obesity hypoventilation. Recommend sleep study as out patient. Recommend to repeat ABGs on room air. (3) Pneumonia Current Visit: Yes Status: Acute Qualifiers: Laterality: bilateral Plan to address problem: Patient was on REMDESIVIR and Methyl prednisone Antibiotics as per infectious diseases. (4) Coronavirus infection Current Visit: Yes Status: Acute Plan to address problem: Patients Hu[place] virus PCR is positive. Patient finished course of REMDESIVIR and Methyl prednisone. Subjective Date of service: 03/15/20 Principal diagnosis: Severe COVID-19 Interval history: Patient alert, awake. Having cough. Having mild shortness of breath at rest. Patients O2 requirements came down . Patient is on 2 litres o2. O2 saturation running 95%. Patient afebrile. Has mild leukocytosis. Patients Hu[place] virus PCR is Positive. Patients chest xray done 02/24/20 reported Patchy bilateral pulmonary opacities are concerning for infection/pneumonia. Atypical/viral etiologies should be considered. Patients inflammatory markers Ferritin 319.4 LDH 68 C reactive protein .3 Troponin .01 D Dimer 1170.89 Patient was on REMDESIVIR.Finished course of REMDESIVIR. Patient presently on Methyl prednisone and S/C Lovenox 80 mg q 12 hours. Patient has CTA of chest 02/29/[address] evidence for pulmonary embolism. Diffuse bilateral airspace disease. The imaging appearance is nonspecific and could be seen in the setting of bacterial pneumonia or atypical/viral etiologies. There is mild mediastinal adenopathy. No associated effusions. Patients repeat chest xray 03/14/20 reported Mild worsening of patchy bilateral pulmonary opacity since the prior study. Patient has venous doppler studies of legs 02/29/20 reported No sonographic evidence for DVT in either lower extremity. ABG on 100% FIO2. ABG pH 7.463 (7.320-7.450) H 03/01/20 08:53 POC ABG pCO2 40.0 mmHg (32.0-48.0) 03/01/20 08:53 POC ABG pO2 71.9 mmHg (83-108) L 03/01/20 08:53 POC ABG HCO3 28.0 03/01/20 08:53 Recommend ABgs on room air. Objective Vital Signs - 12hr 03/15/20 03/15/20 03/15/20 04:43 10:00 11:06 Temperature 97.8 F 98.1 F Pulse Rate 77 93 H Respiratory 18 18 Rate Blood Pressure 101/62 104/52 O2 Sat by Pulse 98 97 95 Oximetry 03/15/20 12:46 Temperature Pulse Rate Respiratory Rate Blood Pressure O2 Sat by Pulse 95 Oximetry Constitutional: no acute distress, alert, other (Having cough) Eyes: non-icteric ENT: oropharynx moist Neck: supple, no lymphadenopathy Effort: mildly labored Ascultation: Bilateral: rales (bases), rhonchi Percussion: Bilateral: not dull Cardiovascular: regular rate and rhythm Gastrointestinal: normoactive bowel sounds, soft, non-tender Integumentary: normal Extremities: no cyanosis, no edema Neurologic: non-focal exam, pupils equal and round Psychiatric: mood appropriate CBC and BMP: 03/13/20 07:23 03/13/20 07:23 ABG, PT/INR, D-dimer: ABG ABG pH 7.439 pH Units (7.350-7.450) 03/06/20 09:40 POC ABG pCO2 40.0 mmHg (32.0-48.0) 03/01/20 08:53 ABG pCO2 36.8 mm Hg 03/06/20 09:40 POC ABG pO2 71.9 mmHg (83-108) L 03/01/20 08:53 ABG pO2 77.4 mm Hg (80.0-90.0) L 03/06/20 09:40 POC ABG HCO3 28.0 03/01/20 08:53 ABG O2 Saturation 96.0 % (95.0-99.0) 03/06/20 09:40 PT/INR, D-dimer D-Dimer 1170.89 ng/mlDDU (0-234) H 03/05/20 16:48 Abnormal lab findings: Abnormal Labs 02/24/20 02/24/20 02/24/20 12:07 12:07 12:07 WBC RBC MCHC 35 H Lymph % (Auto) Lymph # (Auto) Seg Neutrophils % 76.6 H Seg Neuts % (Manual) Lymphocytes % (Manual) Seg Neutrophils # Seg Neutrophils # Man Lymphocytes # (Manual) Monocytes # (Manual) D-Dimer 236.88 H ABG pH POC ABG pO2 ABG pO2 ABG O2 Saturation ABG Glucose Oxyhemoglobin Carboxyhemoglobin Sodium Potassium 3.4 L Chloride BUN Creatinine Glucose POC Glucose Ferritin AST 42 H ALT Alkaline Phosphatase Lactate Dehydrogenase C-Reactive Protein Total Protein Albumin Lipase Arterial Blood Glucose Coronavirus (PCR) SARS-CoV-2 IgG Ab 02/24/20 02/24/20 02/25/20 12:07 12:07 05:16 WBC RBC 3.53 L MCHC Lymph % (Auto) Lymph # (Auto) 1.1 L Seg Neutrophils % 75.0 H Seg Neuts % (Manual) Lymphocytes % (Manual) Seg Neutrophils # Seg Neutrophils # Man Lymphocytes # (Manual) Monocytes # (Manual) D-Dimer ABG pH POC ABG pO2 ABG pO2 ABG O2 Saturation ABG Glucose Oxyhemoglobin Carboxyhemoglobin Sodium Potassium Chloride BUN Creatinine Glucose 101 H POC Glucose Ferritin 200.8 H AST ALT Alkaline Phosphatase Lactate Dehydrogenase 315 H C-Reactive Protein 12.00 H Total Protein Albumin Lipase Arterial Blood Glucose Coronavirus (PCR) SARS-CoV-2 IgG Ab 02/25/20 02/25/20 02/25/20 05:16 08:21 11:52 WBC RBC MCHC Lymph % (Auto) Lymph # (Auto) Seg Neutrophils % Seg Neuts % (Manual) Lymphocytes % (Manual) Seg Neutrophils # Seg Neutrophils # Man Lymphocytes # (Manual) Monocytes # (Manual) D-Dimer ABG pH POC ABG pO2 ABG pO2 ABG O2 Saturation ABG Glucose Oxyhemoglobin Carboxyhemoglobin Sodium Potassium Chloride 109.8 H BUN Creatinine 0.4 L Glucose 143 H POC Glucose 123 H 133 H Ferritin AST ALT Alkaline Phosphatase Lactate Dehydrogenase C-Reactive Protein Total Protein Albumin Lipase Arterial Blood Glucose Coronavirus (PCR) SARS-CoV-2 IgG Ab 02/25/20 02/25/20 02/25/20 14:21 14:21 14:21 WBC RBC MCHC Lymph % (Auto) Lymph # (Auto) Seg Neutrophils % Seg Neuts % (Manual) Lymphocytes % (Manual) Seg Neutrophils # Seg Neutrophils # Man Lymphocytes # (Manual) Monocytes # (Manual) D-Dimer 396.96 H ABG pH POC ABG pO2 ABG pO2 ABG O2 Saturation ABG Glucose Oxyhemoglobin Carboxyhemoglobin Sodium Potassium Chloride BUN Creatinine Glucose 163 H POC Glucose Ferritin 335.1 H AST ALT Alkaline Phosphatase Lactate Dehydrogenase 406 H C-Reactive Protein 6.10 H Total Protein Albumin Lipase Arterial Blood Glucose Coronavirus (PCR) SARS-CoV-2 IgG Ab 02/25/20 02/25/20 02/26/20 16:17 22:45 07:55 WBC RBC MCHC Lymph % (Auto) Lymph # (Auto) Seg Neutrophils % Seg Neuts % (Manual) Lymphocytes % (Manual) Seg Neutrophils # Seg Neutrophils # Man Lymphocytes # (Manual) Monocytes # (Manual) D-Dimer ABG pH POC ABG pO2 ABG pO2 ABG O2 Saturation ABG Glucose Oxyhemoglobin Carboxyhemoglobin Sodium Potassium Chloride BUN Creatinine Glucose POC Glucose 124 H 154 H 124 H Ferritin AST ALT Alkaline Phosphatase Lactate Dehydrogenase C-Reactive Protein Total Protein Albumin Lipase Arterial Blood Glucose Coronavirus (PCR) SARS-CoV-2 IgG Ab 02/26/20 02/26/20 02/26/20 10:45 12:10 16:51 WBC RBC MCHC Lymph % (Auto) Lymph # (Auto) Seg Neutrophils % Seg Neuts % (Manual) Lymphocytes % (Manual) Seg Neutrophils # Seg Neutrophils # Man Lymphocytes # (Manual) Monocytes # (Manual) D-Dimer ABG pH POC ABG pO2 ABG pO2 ABG O2 Saturation ABG Glucose Oxyhemoglobin Carboxyhemoglobin Sodium Potassium Chloride BUN Creatinine Glucose POC Glucose 121 H 129 H Ferritin AST ALT Alkaline Phosphatase Lactate Dehydrogenase C-Reactive Protein Total Protein Albumin Lipase Arterial Blood Glucose Coronavirus (PCR) Positive A SARS-CoV-2 IgG Ab 02/26/20 02/27/20 02/27/20 22:00 07:58 12:04 WBC RBC MCHC Lymph % (Auto) Lymph # (Auto) Seg Neutrophils % Seg Neuts % (Manual) Lymphocytes % (Manual) Seg Neutrophils # Seg Neutrophils # Man Lymphocytes # (Manual) Monocytes # (Manual) D-Dimer ABG pH POC ABG pO2 ABG pO2 ABG O2 Saturation ABG Glucose Oxyhemoglobin Carboxyhemoglobin Sodium Potassium Chloride BUN Creatinine Glucose POC Glucose 134 H 115 H 146 H Ferritin AST ALT Alkaline Phosphatase Lactate Dehydrogenase C-Reactive Protein Total Protein Albumin Lipase Arterial Blood Glucose Coronavirus (PCR) SARS-CoV-2 IgG Ab 02/27/20 02/28/20 02/28/20 17:21 16:03 16:03 WBC RBC MCHC Lymph % (Auto) Lymph # (Auto) Seg Neutrophils % Seg Neuts % (Manual) Lymphocytes % (Manual) Seg Neutrophils # Seg Neutrophils # Man Lymphocytes # (Manual) Monocytes # (Manual) D-Dimer 995.51 H ABG pH POC ABG pO2 ABG pO2 ABG O2 Saturation ABG Glucose Oxyhemoglobin Carboxyhemoglobin Sodium Potassium Chloride BUN Creatinine Glucose POC Glucose 136 H Ferritin 464.3 H AST ALT Alkaline Phosphatase Lactate Dehydrogenase C-Reactive Protein Total Protein Albumin Lipase Arterial Blood Glucose Coronavirus (PCR) SARS-CoV-2 IgG Ab 02/28/20 02/28/20 02/28/20 16:03 16:03 16:03 WBC RBC MCHC Lymph % (Auto) Lymph # (Auto) Seg Neutrophils % Seg Neuts % (Manual) Lymphocytes % (Manual) Seg Neutrophils # Seg Neutrophils # Man Lymphocytes # (Manual) Monocytes # (Manual) D-Dimer ABG pH POC ABG pO2 ABG pO2 ABG O2 Saturation ABG Glucose Oxyhemoglobin Carboxyhemoglobin Sodium Potassium Chloride BUN 23 H Creatinine 0.4 L Glucose 120 H POC Glucose Ferritin AST 72 H ALT 117 H Alkaline Phosphatase 137 H Lactate Dehydrogenase 779 H C-Reactive Protein 6.10 H Total Protein Albumin 3.0 L Lipase Arterial Blood Glucose Coronavirus (PCR) SARS-CoV-2 IgG Ab Reactive A 02/28/20 02/29/20 02/29/20 22:06 07:38 11:11 WBC RBC MCHC Lymph % (Auto) Lymph # (Auto) Seg Neutrophils % Seg Neuts % (Manual) Lymphocytes % (Manual) Seg Neutrophils # Seg Neutrophils # Man Lymphocytes # (Manual) Monocytes # (Manual) D-Dimer ABG pH POC ABG pO2 ABG pO2 ABG O2 Saturation ABG Glucose Oxyhemoglobin Carboxyhemoglobin Sodium Potassium Chloride BUN Creatinine Glucose POC Glucose 119 H 121 H 129 H Ferritin AST ALT Alkaline Phosphatase Lactate Dehydrogenase C-Reactive Protein Total Protein Albumin Lipase Arterial Blood Glucose Coronavirus (PCR) SARS-CoV-2 IgG Ab 02/29/20 02/29/20 03/01/20 15:58 22:02 05:23 WBC RBC MCHC Lymph % (Auto) Lymph # (Auto) Seg Neutrophils % Seg Neuts % (Manual) Lymphocytes % (Manual) Seg Neutrophils # Seg Neutrophils # Man Lymphocytes # (Manual) Monocytes # (Manual) D-Dimer 1841.84 H ABG pH POC ABG pO2 ABG pO2 ABG O2 Saturation ABG Glucose Oxyhemoglobin Carboxyhemoglobin Sodium Potassium Chloride BUN Creatinine Glucose POC Glucose 118 H 141 H Ferritin AST ALT Alkaline Phosphatase Lactate Dehydrogenase C-Reactive Protein Total Protein Albumin Lipase Arterial Blood Glucose Coronavirus (PCR) SARS-CoV-2 IgG Ab 03/01/20 03/01/20 03/01/20 05:23 05:23 05:23 WBC 17.6 H RBC MCHC Lymph % (Auto) Lymph # (Auto) Seg Neutrophils % Seg Neuts % (Manual) 96.0 H Lymphocytes % (Manual) 2.0 L Seg Neutrophils # Seg Neutrophils # Man 16.9 H Lymphocytes # (Manual) 0.4 L Monocytes # (Manual) D-Dimer ABG pH POC ABG pO2 ABG pO2 ABG O2 Saturation ABG Glucose Oxyhemoglobin Carboxyhemoglobin Sodium Potassium Chloride BUN 19 H Creatinine 0.3 L Glucose 145 H POC Glucose Ferritin 323.9 H AST ALT 63 H Alkaline Phosphatase 132 H Lactate Dehydrogenase 746 H C-Reactive Protein 6.80 H Total Protein Albumin 2.9 L Lipase Arterial Blood Glucose Coronavirus (PCR) SARS-CoV-2 IgG Ab 03/01/20 03/01/20 03/01/20 06:30 08:53 11:07 WBC RBC MCHC Lymph % (Auto) Lymph # (Auto) Seg Neutrophils % Seg Neuts % (Manual) Lymphocytes % (Manual) Seg Neutrophils # Seg Neutrophils # Man Lymphocytes # (Manual) Monocytes # (Manual) D-Dimer ABG pH 7.463 H POC ABG pO2 71.9 L ABG pO2 ABG O2 Saturation ABG Glucose 147 H Oxyhemoglobin Carboxyhemoglobin 0.2 L Sodium Potassium Chloride BUN Creatinine Glucose POC Glucose 132 H 126 H Ferritin AST ALT Alkaline Phosphatase Lactate Dehydrogenase C-Reactive Protein Total Protein Albumin Lipase Arterial Blood Glucose 147 H Coronavirus (PCR) SARS-CoV-2 IgG Ab 03/01/20 03/01/20 03/02/20 15:50 21:24 08:08 WBC RBC MCHC Lymph % (Auto) Lymph # (Auto) Seg Neutrophils % Seg Neuts % (Manual) Lymphocytes % (Manual) Seg Neutrophils # Seg Neutrophils # Man Lymphocytes # (Manual) Monocytes # (Manual) D-Dimer ABG pH POC ABG pO2 ABG pO2 ABG O2 Saturation ABG Glucose Oxyhemoglobin Carboxyhemoglobin Sodium Potassium Chloride BUN Creatinine Glucose POC Glucose 122 H 142 H 152 H Ferritin AST ALT Alkaline Phosphatase Lactate Dehydrogenase C-Reactive Protein Total Protein Albumin Lipase Arterial Blood Glucose Coronavirus (PCR) SARS-CoV-2 IgG Ab 03/02/20 03/02/20 03/02/20 11:41 16:51 21:56 WBC RBC MCHC Lymph % (Auto) Lymph # (Auto) Seg Neutrophils % Seg Neuts % (Manual) Lymphocytes % (Manual) Seg Neutrophils # Seg Neutrophils # Man Lymphocytes # (Manual) Monocytes # (Manual) D-Dimer ABG pH POC ABG pO2 ABG pO2 ABG O2 Saturation ABG Glucose Oxyhemoglobin Carboxyhemoglobin Sodium Potassium Chloride BUN Creatinine Glucose POC Glucose 136 H 137 H 126 H Ferritin AST ALT Alkaline Phosphatase Lactate Dehydrogenase C-Reactive Protein Total Protein Albumin Lipase Arterial Blood Glucose Coronavirus (PCR) SARS-CoV-2 IgG Ab 03/03/20 03/03/20 03/03/20 08:05 13:10 19:32 WBC RBC MCHC Lymph % (Auto) Lymph # (Auto) Seg Neutrophils % Seg Neuts % (Manual) Lymphocytes % (Manual) Seg Neutrophils # Seg Neutrophils # Man Lymphocytes # (Manual) Monocytes # (Manual) D-Dimer ABG pH POC ABG pO2 ABG pO2 ABG O2 Saturation ABG Glucose Oxyhemoglobin Carboxyhemoglobin Sodium Potassium Chloride BUN 27 H Creatinine 0.5 L D Glucose 200 H POC Glucose 147 H 114 H Ferritin AST ALT Alkaline Phosphatase Lactate Dehydrogenase C-Reactive Protein Total Protein Albumin 3.1 L Lipase Arterial Blood Glucose Coronavirus (PCR) SARS-CoV-2 IgG Ab 03/03/20 03/03/20 03/03/20 19:32 19:39 22:44 WBC 20.3 H RBC MCHC Lymph % (Auto) Lymph # (Auto) Seg Neutrophils % Seg Neuts % (Manual) 90.0 H Lymphocytes % (Manual) 4.0 L Seg Neutrophils # Seg Neutrophils # Man 18.3 H Lymphocytes # (Manual) 0.8 L Monocytes # (Manual) 1.2 H D-Dimer ABG pH POC ABG pO2 ABG pO2 ABG O2 Saturation ABG Glucose Oxyhemoglobin Carboxyhemoglobin Sodium Potassium Chloride BUN Creatinine Glucose POC Glucose 186 H 159 H Ferritin AST ALT Alkaline Phosphatase Lactate Dehydrogenase C-Reactive Protein Total Protein Albumin Lipase Arterial Blood Glucose Coronavirus (PCR) SARS-CoV-2 IgG Ab 03/04/20 03/04/20 03/04/20 06:06 06:06 07:52 WBC 17.2 H RBC MCHC Lymph % (Auto) Lymph # (Auto) Seg Neutrophils % Seg Neuts % (Manual) 88.0 H Lymphocytes % (Manual) 5.0 L Seg Neutrophils # 15.3 H Seg Neutrophils # Man 15.1 H Lymphocytes # (Manual) 0.9 L Monocytes # (Manual) D-Dimer ABG pH POC ABG pO2 ABG pO2 ABG O2 Saturation ABG Glucose Oxyhemoglobin Carboxyhemoglobin Sodium Potassium Chloride BUN 31 H Creatinine 0.4 L Glucose 144 H POC Glucose 131 H Ferritin AST ALT Alkaline Phosphatase Lactate Dehydrogenase C-Reactive Protein Total Protein Albumin 3.0 L Lipase Arterial Blood Glucose Coronavirus (PCR) SARS-CoV-2 IgG Ab 03/04/20 03/04/20 03/04/20 11:30 11:40 16:21 WBC RBC MCHC Lymph % (Auto) Lymph # (Auto) Seg Neutrophils % Seg Neuts % (Manual) Lymphocytes % (Manual) Seg Neutrophils # Seg Neutrophils # Man Lymphocytes # (Manual) Monocytes # (Manual) D-Dimer ABG pH 7.489 H POC ABG pO2 ABG pO2 54.6 L ABG O2 Saturation 90.4 L ABG Glucose Oxyhemoglobin 89.1 L Carboxyhemoglobin Sodium Potassium Chloride BUN Creatinine Glucose POC Glucose 121 H 155 H Ferritin AST ALT Alkaline Phosphatase Lactate Dehydrogenase C-Reactive Protein Total Protein Albumin Lipase Arterial Blood Glucose Coronavirus (PCR) SARS-CoV-2 IgG Ab 03/05/20 03/05/20 03/05/20 12:01 16:48 16:48 WBC RBC MCHC Lymph % (Auto) Lymph # (Auto) Seg Neutrophils % Seg Neuts % (Manual) Lymphocytes % (Manual) Seg Neutrophils # Seg Neutrophils # Man Lymphocytes # (Manual) Monocytes # (Manual) D-Dimer 1170.89 H ABG pH POC ABG pO2 ABG pO2 ABG O2 Saturation ABG Glucose Oxyhemoglobin Carboxyhemoglobin Sodium Potassium Chloride BUN Creatinine Glucose POC Glucose 116 H Ferritin 348.4 H AST ALT Alkaline Phosphatase Lactate Dehydrogenase C-Reactive Protein Total Protein Albumin Lipase Arterial Blood Glucose Coronavirus (PCR) SARS-CoV-2 IgG Ab 03/05/20 03/05/20 03/06/20 16:48 17:40 09:40 WBC RBC MCHC Lymph % (Auto) Lymph # (Auto) Seg Neutrophils % Seg Neuts % (Manual) Lymphocytes % (Manual) Seg Neutrophils # Seg Neutrophils # Man Lymphocytes # (Manual) Monocytes # (Manual) D-Dimer ABG pH POC ABG pO2 ABG pO2 77.4 L ABG O2 Saturation ABG Glucose Oxyhemoglobin 94.5 L Carboxyhemoglobin Sodium Potassium Chloride BUN Creatinine Glucose POC Glucose 233 H Ferritin AST ALT Alkaline Phosphatase Lactate Dehydrogenase 619 H C-Reactive Protein 3.50 H Total Protein Albumin Lipase Arterial Blood Glucose Coronavirus (PCR) SARS-CoV-2 IgG Ab 03/06/20 03/06/20 03/07/20 11:52 17:05 04:22 WBC 16.6 H RBC MCHC Lymph % (Auto) 7.9 L Lymph # (Auto) Seg Neutrophils % 87.5 H Seg Neuts % (Manual) Lymphocytes % (Manual) Seg Neutrophils # 14.5 H Seg Neutrophils # Man Lymphocytes # (Manual) Monocytes # (Manual) D-Dimer ABG pH POC ABG pO2 ABG pO2 ABG O2 Saturation ABG Glucose Oxyhemoglobin Carboxyhemoglobin Sodium Potassium Chloride BUN Creatinine Glucose POC Glucose 168 H 163 H Ferritin AST ALT Alkaline Phosphatase Lactate Dehydrogenase C-Reactive Protein Total Protein Albumin Lipase Arterial Blood Glucose Coronavirus (PCR) SARS-CoV-2 IgG Ab 03/07/20 03/07/20 03/07/20 04:22 11:27 16:55 WBC RBC MCHC Lymph % (Auto) Lymph # (Auto) Seg Neutrophils % Seg Neuts % (Manual) Lymphocytes % (Manual) Seg Neutrophils # Seg Neutrophils # Man Lymphocytes # (Manual) Monocytes # (Manual) D-Dimer ABG pH POC ABG pO2 ABG pO2 ABG O2 Saturation ABG Glucose Oxyhemoglobin Carboxyhemoglobin Sodium 134 L Potassium Chloride BUN 27 H Creatinine 0.4 L Glucose 109 H POC Glucose 108 H 140 H Ferritin AST ALT Alkaline Phosphatase Lactate Dehydrogenase C-Reactive Protein Total Protein 6.1 L Albumin 3.1 L Lipase Arterial Blood Glucose Coronavirus (PCR) SARS-CoV-2 IgG Ab 03/08/20 03/08/20 03/09/20 17:17 18:37 12:10 WBC RBC MCHC Lymph % (Auto) Lymph # (Auto) Seg Neutrophils % Seg Neuts % (Manual) Lymphocytes % (Manual) Seg Neutrophils # Seg Neutrophils # Man Lymphocytes # (Manual) Monocytes # (Manual) D-Dimer ABG pH POC ABG pO2 ABG pO2 ABG O2 Saturation ABG Glucose Oxyhemoglobin Carboxyhemoglobin Sodium Potassium Chloride BUN Creatinine Glucose POC Glucose 145 H 231 H 115 H Ferritin AST ALT Alkaline Phosphatase Lactate Dehydrogenase C-Reactive Protein Total Protein Albumin Lipase Arterial Blood Glucose Coronavirus (PCR) SARS-CoV-2 IgG Ab 03/10/20 03/10/20 03/12/20 11:23 15:34 10:19 WBC RBC MCHC Lymph % (Auto) Lymph # (Auto) Seg Neutrophils % Seg Neuts % (Manual) Lymphocytes % (Manual) Seg Neutrophils # Seg Neutrophils # Man Lymphocytes # (Manual) Monocytes # (Manual) D-Dimer ABG pH POC ABG pO2 ABG pO2 ABG O2 Saturation ABG Glucose Oxyhemoglobin Carboxyhemoglobin Sodium Potassium Chloride BUN Creatinine Glucose POC Glucose 125 H Ferritin 319.4 H AST ALT Alkaline Phosphatase Lactate Dehydrogenase C-Reactive Protein Total Protein 5.9 L Albumin 3.0 L Lipase 86 H Arterial Blood Glucose Coronavirus (PCR) SARS-CoV-2 IgG Ab 03/13/20 03/13/20 03/14/20 07:23 07:23 04:40 WBC 12.2 H RBC MCHC Lymph % (Auto) Lymph # (Auto) Seg Neutrophils % Seg Neuts % (Manual) Lymphocytes % (Manual) Seg Neutrophils # Seg Neutrophils # Man Lymphocytes # (Manual) Monocytes # (Manual) D-Dimer ABG pH POC ABG pO2 ABG pO2 ABG O2 Saturation ABG Glucose Oxyhemoglobin Carboxyhemoglobin Sodium 136 L Potassium Chloride BUN 20 H Creatinine 0.5 L Glucose POC Glucose Ferritin AST ALT Alkaline Phosphatase Lactate Dehydrogenase C-Reactive Protein Total Protein 6.1 L Albumin 3.1 L Lipase 68 H Arterial Blood Glucose Coronavirus (PCR) SARS-CoV-2 IgG Ab Chest x-ray: report reviewed, image reviewed Additional Studies: CHEST 1 VIEW 03/14/2020 1:29 PM INDICATION / CLINICAL INFORMATION: Pneumonia; COVID. COMPARISON: 02/24/2020 FINDINGS: SUPPORT DEVICES: None. HEART / MEDIASTINUM: No significant abnormality. LUNGS / PLEURA: Patchy bilateral pulmonary opacities have mildly worsened. No pneumothorax. ADDITIONAL FINDINGS: No significant additional findings. IMPRESSION: 1. Mild worsening of patchy bilateral pulmonary opacity since the prior study. Allied health notes reviewed: RT
[2020-03-15] MEDS: HYDROcodone/HOMATROPINE 5-1.5MG /5 ML ORAL LIQD UNIT DOSE PO PRN (17:38)
--- NOTE | 2020-03-15 18:01 | Progress Note ---
Assessment and Plan Assessment and plan: --Worsening patchy bilateral opacities: on follow-up x-ray on 03/14/2020/yesterday We will hold off discharge and closely monitor next 24 hours Patient's ambulatory O2 sats dropped to 82% per nurse Continue current management Possible discharge in 1 to 2 days if stable -- Acute hypoxemic respiratory failure Current Visit: Yes Status: Acute Plan to address problem: Patient on 40 L high flow oxygen Worsening clinical picture Slightly improved on nasal cannula oxygen -- Covid pneumonia Current Visit: Yes Status: Acute Plan to address problem: Patient is coronavirus PCR positive on 02/26/2020 Patient is also SARS-CoV-2 IgG positive Patient is not a candidate for Covid convalescent plasma Steroids, remdesivir for total 5 days Continue anticoagulation Prone positioning as possible High flow oxygen Wean to nasal cannula oxygen Home O2 evaluation -- Pneumonia Current Visit: Yes Status: Acute Plan to address problem: Follow-up chest x-ray worsening bilateral infiltrates Continue oxygen and supportive care -- severe sepsis Remains hypoxic likely due to bilateral pneumonia Continue IV antibiotics --Abdominal Pain; acute gastritis supportive care, abdominal ultrasound, possible GI consult if no improvement --DVT prophylaxis Current Visit: Yes Status: Acute Plan to address problem: High-dose Lovenox Monitor closely and adjust the management as needed Plan of care reviewed with the patient and her nurse as well as the case management Consults and recommendations noted and appreciated Evaluate for home oxygen Possible discharge home tomorrow if stable Consults and recommendations noted and appreciated 50 YO Female with Obesity Hypoventilation Syndrome presents to ED for evaluation. Patient states that she has "been feeling sick" for the past 2 weeks with persistent symptoms over the same timeframe. Patient was seen and evaluated by her primary care physician and treated with oral antibiotics for outpatient pneumonia. Patient states that she has experienced persistent symptoms in spite of of compliance with medication. Patient reports fever, dry cough, shortness of breath, decreased exercise tolerance, nausea, multiple episodes of vomiting, multiple loose stools, loss of sense of smell, loss of sense of taste, fatigue, malaise, body aches. Patient transported to [facility] via private vehicle for further care and evaluation of the aforementioned symptoms. Patient seen and evaluated in the emergency department. All lab and imaging studies reviewed. Patient found to have a fever to 102.1 F, as well as a pulse oximetry of 88% with exertion on room air which is consistent with acute hypoxemic respiratory failure. Patient underwent chest x-ray which revealed bilateral pneumonia. Patient admitted to medical floor and initiated on pneumonia protocol as well as coronavirus protocol. Coronavirus PCR ordered in the emergency department and is pending at time of admission. Patient acknowledges fever, but denies chest pain, palpitation, skin rash, recent ill contacts, trauma, or known exposure to COVID-19. No medication listed at time of admission. No prior admission for review. 02/29/2020 Patient alert, awake. Having cough. Having mild shortness of breath at rest. Patient is on vapotherm, FIO2 100% and O2 saturation 90%. Patient switched to BIPAP. But patient not using it.Patient afebrile. No leukocytosis. Complaining headache at times.Patients [place] virus PCR is Positive. Patients chest xray d one 02/24/20 reported Patchy bilateral pulmonary opacities are concerning for infection/pneumonia. 03/01/2020 03/01/2020 Patient on high flow oxygen and BiPAP 03/02/2020 Patient still on high flow oxygen and BiPAP 03/03/2020 Patient with worsening inflammatory markers Chest x-ray worsening with extensive consolidations Patient will be transferred to ICU 03/04/2020 Patient on high flow oxygen-40 L Worsening pulmonary alveolar infiltrates Possible intubation !05/07/19 On High flow oxygen 03/07/2020 Patient still on high flow oxygen Not intubated 03/08- on HFNC 03/10: Clinically showing some improvement as HFNC is improving. Continue weaning as tolerated 03/11: Continue supportive care, weaning oxygen as tolerated. Can transfer to 3rd floor if weaned off HFNC. 03/12: Patient respiratory meier continues to improve, did have some abdominal pain with FOOD, Will check LFT, ammonia, and Lipase and abdominal ultrasound, considering patient is 35% FIO2, will transfer to [facility]. 03/14; patient feels slightly better abdominal pain significantly improved Patient was on high flow oxygen for few days, currently on 4 L nasal cannula oxygen Wean and titrate to O2 sats more than 90% Check resting and ambulatory room air O2 sats, Case management for possible home health Possible discharge in 1 to 2 days if stable and if cleared by pulmonary 03/15: Initially was planning to discharge home on nasal cannula oxygen However patient's repeat x-ray l yesterday t showed worsening infiltrates, worsening shortness of breath We will closely monitor next 24 hours, and DC home if stable Resting O2 90%, ambulatory room air O2 83%, on 2 L of nasal cannula oxygen improved to 95% Recommended home oxygen, patient uninsured no resources, patient's family willing to pay for for the oxygen Patient will be discharged tomorrow if stable History Interval history: I have seen and examined the patient at the bedside And chart and medications reviewed Patient complains of some shortness of breath and cough Nasal cannula O2 decreased from 4 L to 2 L today Vital signs noted Hospitalist Physical - Constitutional Vitals: Temp Pulse Resp BP Pulse Ox 98.1 F 93 H 18 104/52 95 03/15/20 11:06 03/15/20 11:06 03/15/20 11:06 03/15/20 11:06 03/15/20 12:46 General appearance: Present: mild distress, well-nourished, obese - EENT Eyes: Present: PERRL, EOM intact - Neck Neck: Present: supple, normal ROM - Respiratory Respiratory effort: normal Respiratory: bilateral: diminished, rhonchi, negative: rales, wheezing - Cardiovascular Rhythm: regular Heart Sounds: Present: S1 & S2 - Extremities Extremities: no ischemia, No edema - Abdominal General gastrointestinal: soft, non-tender, non-distended, normal bowel sounds - Integumentary Integumentary: Present: clear, warm - Psychiatric Psychiatric: appropriate mood/affect, cooperative - Neurologic Neurologic: moves all extremities HEART Score - HEART Score Troponin: Troponin T < 0.010 ng/mL (0.00-0.029) 02/28/20 16:03 Results - Labs CBC & Chem 7: 03/13/20 07:23 03/13/20 07:23 Labs: Laboratory Last Values WBC 12.2 K/mm3 (4.5-11.0) H 03/13/20 07:23 RBC 4.00 M/mm3 (3.65-5.03) 03/13/20 07:23 Hgb 12.0 gm/dl (10.1-14.3) 03/13/20 07:23 Hct 36.2 % (30.3-42.9) 03/13/20 07:23 MCV 90 fl (79-97) 03/13/20 07:23 MCH 30 pg (28-32) 03/13/20 07:23 MCHC 33 % (30-34) 03/13/20 07:23 RDW 13.8 % (13.2-15.2) 03/13/20 07:23 Plt Count 215 K/mm3 (140-440) 03/13/20 07:23 Lymph % (Auto) 7.9 % (13.4-35.0) L 03/07/20 04:22 [place] % (Auto) 3.5 % (0.0-7.3) 03/07/20 04:22 Eos % (Auto) 0.9 % (0.0-4.3) 03/07/20 04:22 Baso % (Auto) 0.2 % (0.0-1.8) 03/07/20 04:22 Lymph # (Auto) 1.3 K/mm3 (1.2-5.4) 03/07/20 04:22 [place] # (Auto) 0.6 K/mm3 (0.0-0.8) 03/07/20 04:22 Eos # (Auto) 0.2 K/mm3 (0.0-0.4) 03/07/20 04:22 Baso # (Auto) 0.0 K/mm3 (0.0-0.1) 03/07/20 04:22 Add Manual Diff Complete 03/04/20 06:06 Total Counted 100 03/04/20 06:06 Seg Neutrophils % 87.5 % (40.0-70.0) H 03/07/20 04:22 Seg Neuts % (Manual) 88.0 % (40.0-70.0) H 03/04/20 06:06 Lymphocytes % (Manual) 5.0 % (13.4-35.0) L 03/04/20 06:06 Reactive Lymphs % (Man) 1.0 % 03/04/20 06:06 Monocytes % (Manual) 4.0 % (0.0-7.3) 03/04/20 06:06 Eosinophils % (Manual) 1.0 % (0.0-4.3) 03/04/20 06:06 Metamyelocytes % 1.0 % 03/04/20 06:06 Nucleated RBC % Not Reportable 03/04/20 06:06 Seg Neutrophils # 14.5 K/mm3 (1.8-7.7) H 03/07/20 04:22 Seg Neutrophils # Man 15.1 K/mm3 (1.8-7.7) H 03/04/20 06:06 Band Neutrophils # 0.0 K/mm3 03/04/20 06:06 Lymphocytes # (Manual) 0.9 K/mm3 (1.2-5.4) L 03/04/20 06:06 Abs React Lymphs (Man) 0.2 K/mm3 03/04/20 06:06 Monocytes # (Manual) 0.7 K/mm3 (0.0-0.8) 03/04/20 06:06 Eosinophils # (Manual) 0.2 K/mm3 (0.0-0.4) 03/04/20 06:06 Basophils # (Manual) 0.0 K/mm3 (0.0-0.1) 03/04/20 06:06 Metamyelocytes # 0.2 K/mm3 03/04/20 06:06 Myelocytes # 0.0 K/mm3 03/04/20 06:06 Promyelocytes # 0.0 K/mm3 03/04/20 06:06 Blast Cells # 0.0 K/mm3 03/04/20 06:06 WBC Morphology Not Reportable 03/04/20 06:06 Hypersegmented Neuts Not Reportable 03/04/20 06:06 Hyposegmented Neuts Not Reportable 03/04/20 06:06 Hypogranular Neuts Not Reportable 03/04/20 06:06 Smudge Cells Not Reportable 03/04/20 06:06 Toxic Granulation Not Reportable 03/04/20 06:06 Toxic Vacuolation Not Reportable 03/04/20 06:06 Dohle Bodies Not Reportable 03/04/20 06:06 Pelger-Huet Anomaly Not Reportable 03/04/20 06:06 Mian Rods Not Reportable 03/04/20 06:06 Platelet Estimate Consistent w auto 03/04/20 06:06 Clumped Platelets Not Reportable 03/04/20 06:06 Plt Clumps, EDTA Not Reportable 03/04/20 06:06 Large Platelets Not Reportable 03/04/20 06:06 Giant Platelets Not Reportable 03/04/20 06:06 Platelet Satelliting Not Reportable 03/04/20 06:06 Plt Morphology Comment Not Reportable 03/04/20 06:06 RBC Morphology Normal 03/04/20 06:06 Dimorphic RBCs Not Reportable 03/04/20 06:06 Polychromasia Not Reportable 03/04/20 06:06 Hypochromasia Not Reportable 03/04/20 06:06 Poikilocytosis Not Reportable 03/04/20 06:06 Anisocytosis Not Reportable 03/04/20 06:06 Microcytosis Not Reportable 03/04/20 06:06 Macrocytosis Not Reportable 03/04/20 06:06 Spherocytes Not Reportable 03/04/20 06:06 Pappenheimer Bodies Not Reportable 03/04/20 06:06 Sickle Cells Not Reportable 03/04/20 06:06 Target Cells Not Reportable 03/04/20 06:06 Tear Drop Cells Not Reportable 03/04/20 06:06 Ovalocytes Not Reportable 03/04/20 06:06 Helmet Cells Not Reportable 03/04/20 06:06 [place] Bodies Not Reportable 03/04/20 06:06 [place] Rings Not Reportable 03/04/20 06:06 [place] Cells Not Reportable 03/04/20 06:06 Bite Cells Not Reportable 03/04/20 06:06 Crenated Cell Not Reportable 03/04/20 06:06 Elliptocytes Not Reportable 03/04/20 06:06 Acanthocytes (Spur) Not Reportable 03/04/20 06:06 Rouleaux Not Reportable 03/04/20 06:06 Hemoglobin C Crystals Not Reportable 03/04/20 06:06 Schistocytes Not Reportable 03/04/20 06:06 Malaria parasites Not Reportable 03/04/20 06:06 Jesus Bodies Not Reportable 03/04/20 06:06 Hem Pathologist Commnt No 03/04/20 06:06 D-Dimer 1170.89 ng/mlDDU (0-234) H 03/05/20 16:48 ABG pH 7.439 pH Units (7.350-7.450) 03/06/20 09:40 POC ABG pCO2 40.0 mmHg (32.0-48.0) 03/01/20 08:53 ABG pCO2 36.8 mm Hg 03/06/20 09:40 POC ABG pO2 71.9 mmHg (83-108) L 03/01/20 08:53 ABG pO2 77.4 mm Hg (80.0-90.0) L 03/06/20 09:40 POC ABG HCO3 28.0 03/01/20 08:53 ABG HCO3 24.4 mmol/L (20.0-26.0) 03/06/20 09:40 ABG O2 Saturation 96.0 % (95.0-99.0) 03/06/20 09:40 ABG O2 Content 18.4 (0.0-44) 03/06/20 09:40 POC ABG Base Excess 4.0 03/01/20 08:53 ABG Base Excess 0.5 mmol/L (-2.0-3.0) 03/06/20 09:40 ABG Hemoglobin 13.8 gm/dl (12.0-16.0) 03/06/20 09:40 ABG Oxyhemoglobin 94.1 (94-98) 03/01/20 08:53 ABG Carboxyhemoglobin 1.1 % (0.0-5.0) 03/06/20 09:40 ABG Methemoglobin 0.4 % (0.0-1.5) 03/06/20 09:40 ABG Sodium 139.8 mmol/L (136.0-145.0) 03/01/20 08:53 ABG Potassium 3.9 mmol/L (3.40-4.50) 03/01/20 08:53 ABG Chloride 105.0 mmol/L (98-107) 03/01/20 08:53 ABG Glucose 147 mg/dL (65-95) H 03/01/20 08:53 Oxyhemoglobin 94.5 % (95.0-99.0) L 03/06/20 09:40 Carboxyhemoglobin 0.2 (0.5-1.5) L 03/01/20 08:53 FiO2 100 % 03/06/20 09:40 Sodium 136 mmol/L (137-145) L 03/13/20 07:23 Potassium 3.6 mmol/L (3.6-5.0) 03/13/20 07:23 Chloride 101.3 mmol/L (98-107) 03/13/20 07:23 Carbon Dioxide 27 mmol/L (22-30) 03/13/20 07:23 Anion Gap 11 mmol/L 03/13/20 07:23 BUN 20 mg/dL (7-17) H 03/13/20 07:23 Creatinine 0.5 mg/dL (0.6-1.2) L 03/13/20 07:23 Estimated GFR > 60 ml/min 03/13/20 07:23 BUN/Creatinine Ratio 40 % 03/13/20 07:23 Glucose 88 mg/dL (65-100) 03/13/20 07:23 POC Glucose 125 mg/dL (70-105) H 03/10/20 11:23 Lactic Acid 1.00 mmol/L (0.7-2.0) 02/24/20 14:31 Calcium 8.9 mg/dL (8.4-10.2) 03/13/20 07:23 Ferritin 319.4 ng/mL (10.0-200.0) H 03/10/20 15:34 Total Bilirubin 0.20 mg/dL (0.1-1.2) 03/13/20 07:23 Direct Bilirubin < 0.2 mg/dL (0-0.2) 03/12/20 10:19 Indirect Bilirubin 0.0 mg/dL 03/12/20 10:19 AST 23 units/L (5-40) 03/13/20 07:23 ALT 51 units/L (7-56) 03/13/20 07:23 Alkaline Phosphatase 66 units/L (35-129) 03/13/20 07:23 Lactate Dehydrogenase 619 units/L (91-180) H 03/05/20 16:48 Troponin T < 0.010 ng/mL (0.00-0.029) 02/28/20 16:03 C-Reactive Protein 0.30 mg/dL (0.00-1.30) 03/10/20 15:34 NT-Pro-B Natriuret Pep 47.67 pg/mL (0-450) 03/02/20 16:51 Total Protein 6.1 g/dL (6.3-8.2) L 03/13/20 07:23 Albumin 3.1 g/dL (3.9-5) L 03/13/20 07:23 Albumin/Globulin Ratio 1.0 % 03/13/20 07:23 Lipase 68 units/L (13-60) H 03/14/20 04:40 Procalcitonin < 0.05 ng/mL (<0.15) 02/25/20 14:21 Arterial Blood Glucose 147 mg/dL (65-95) H 03/01/20 08:53 Arterial Blood Ionized Calcium 4.7 mg/dL (4.6-5.3) 03/01/20 08:53 Urine Color Yellow (Yellow) 02/24/20 Unknown Urine Turbidity Clear (Clear) 02/24/20 Unknown Urine pH 6.0 (5.0-7.0) 02/24/20 Unknown Ur Specific [place] 1.023 (1.003-1.030) 02/24/20 Unknown Urine Protein 100 mg/dl mg/dL (Negative) 02/24/20 Unknown Urine Glucose (UA) Neg mg/dL (Negative) 02/24/20 Unknown Urine Ketones Neg mg/dL (Negative) 02/24/20 Unknown Urine Blood Neg (Negative) 02/24/20 Unknown Urine Nitrite Neg (Negative) 02/24/20 Unknown Urine Bilirubin Neg (Negative) 02/24/20 Unknown Urine Urobilinogen 2.0 mg/dL (<2.0) 02/24/20 Unknown Ur Leukocyte Esterase Neg (Negative) 02/24/20 Unknown Urine WBC (Auto) 4.0 /HPF (0.0-6.0) 02/24/20 Unknown Urine RBC (Auto) 2.0 /HPF (0.0-6.0) 02/24/20 Unknown U Epithel Cells (Auto) 3.0 /HPF (0-13.0) 02/24/20 Unknown Urine Bacteria (Auto) 1+ /HPF (Negative) 02/24/20 Unknown Urine Mucus 1+ /HPF 02/24/20 Unknown Coronavirus (PCR) Positive (Negative) A 02/26/20 10:45 SARS-CoV-2 IgG Ab Reactive (NonReactive) A 02/28/20 16:03 - Diagnostic Impressions Diagnostic Impressions: Echocardiogram 03/01/20 09:12 Transthoracic Echocardiogram Indication: Eval EF; PA HTN BP: 121/78 HR: 90 Conclusions *Global left ventricular systolic function is normal. *The estimated ejection fraction is 60-65%. *The right ventricular global systolic function is normal. *There is no evidence of aortic regurgitation. *There is trace of mitral regurgitation. *There is trace tricuspid regurgitation. *The right ventricular systolic pressure is calculated at 28 mmHg. *There is trace pulmonic regurgitation. Findings Left Ventricle: The left ventricular chamber size is normal. There is no left ventricular hypertrophy. Global left ventricular wall motion and contractility are within normal limits. Global left ventricular systolic function is normal. The estimated ejection fraction is 60-65%. There is an E to A reversal in the mitral valve flow pattern suggestive of diastolic dysfunction. Left Atrium: The left atrial chamber size is normal. Right Ventricle: The right ventricular cavity size is normal. The right ventricular global systolic function is normal. Right Atrium: The right atrial cavity size is normal. Aortic Valve: There is no evidence of aortic valve thickening. There is no evidence of aortic regurgitation. Mitral Valve: The mitral valve leaflets do not appear thickened. There is trace of mitral regurgitation. Tricuspid Valve: The tricuspid valve leaflets are normal. There is trace tricuspid regurgitation. The right ventricular systolic pressure is calculated at 28 mmHg. Pulmonic Valve: There is no evidence of pulmonic valve thickening. There is trace pulmonic regurgitation. Pericardium: There is no pericardial effusion. Aorta: The aorta appears normal. Venous: The inferior vena cava appears normal in size. Measurements Chambers 2D Name Value Normal Range IVSd (2D) 0.97 cm (0.6 - 1.1) LVPWd (2D) 1.05 cm (0.6 - 1.1) LVIDd (2D) 3.87 cm (3.7 - 5.6) LVIDs (2D) 2.41 cm (2 - 3.8) LV FS (2D) 37.69 % - EF Teichholz (2D) 68.47 % - Ao root diameter (2D) 2.92 cm (2 - 3.7) Volumes/Mass Name Value Normal Range LA ESV SP 4CH (A/L) 32.2 ml - LA ESV SP 2CH (A/L) 24.78 ml - LA ESV BP (A/L) 29.52 ml - LA ESV BP (A/L) index 16.68 ml/m2 - LA ESV SP 4CH (MOD) 29.62 ml - LA ESV SP 2CH (MOD) 23.68 ml - LA ESV BP (MOD) 27.57 ml - LA ESV BP (MOD) index 15.58 ml/m2 - Diastolic/Systolic Function Name Value Normal Range MV E-wave Vmax 0.59 m/sec - MV deceleration time 258.54 msec - MV A-wave Vmax 0.73 m/sec - MV E:A ratio 0.81 ratio - Aortic Valve Name Value Normal Range AV Vmax 1.33 m/sec - AV VTI 22.87 cm - AV peak gradient 7.09 mmHg - AV mean gradient 4.39 mmHg - LVOT diameter 1.52 cm - LVOT Vmax 1.22 m/sec - LVOT VTI 20.85 cm - LVOT peak gradient 5.96 mmHg - LVOT mean gradient 2.91 mmHg - SV LVOT 37.79 ml - VINEET (continuity Vmax) 1.66 cm2 - VINEET (continuity VTI) 1.65 cm2 - Ascending Ao 2.78 cm - Tricuspid Valve Name Value Normal Range TR Vmax 2.48 m/sec - TR peak gradient 25 mmHg - RAP 3 mmHg - RVSP 28 mmHg - IVC diameter 1.77 cm (1.2 - 2.3) Pulmonic Valve/Qp:Qs Name Value Normal Range PV Vmax 0.85 m/sec - PV peak gradient 2.9 mmHg - [place] end-diastolic Vmax 1.26 m/sec - PV acceleration time 144.62 msec - [place]/IV: Voiding Method Toilet IV Catheter Type [Right Peripheral IV Forearm] IV Catheter Type [Right Peripheral IV Antecubital] Active Medications - Current Medications Current Medications: Generic Name Dose Route Start Last Admin Trade Name Freq PRN Reason Stop Dose Admin Acetaminophen 650 mg 02/24/20 15:14 03/14/20 10:14 Acetaminophen 325 Mg Tab PO 650 mg Q4H PRN Administration Pain MILD(1-3)/Fever >100.5/DANGELO Albuterol 2.5 mg 02/24/20 15:14 Albuterol 2.5 Mg/3 Ml Nebu IH Q4HRT PRN Shortness Of Breath Ascorbic Acid 1,000 mg 02/29/20 23:45 03/15/20 09:37 Ascorbic Acid 500 Mg Tab PO 1,000 mg BID UTE Administration Benzonatate 100 mg 02/25/20 22:00 03/15/20 09:36 Benzonatate 100 Mg Cap PO 100 mg BID UTE Administration Cholecalciferol 5,000 unit 03/01/20 10:00 03/15/20 09:42 Cholecalciferol (Vit D3) 5,000 Unit Tab PO 5,000 unit DAILY UTE Administration Enoxaparin Sodium 80 mg 02/29/20 23:45 03/15/20 09:37 Enoxaparin 80 Mg/0.8 Ml Inj SUB-Q 80 mg Q12HR UTE Administration Protocol Famotidine 10 mg 03/13/20 23:00 03/15/20 09:37 Famotidine 20 Mg Tab PO 10 mg BID UTE Administration Hydrocodone Bit/Homatropine Methylb 10 ml 02/26/20 15:00 03/15/20 17:38 Hydrocodone/Homatropine 5-1.5mg /5 Ml Oral Liqd Unit Dose PO 10 ml Q6H PRN Administration Cough Morphine Sulfate 2 mg 03/11/20 19:35 03/13/20 10:41 Morphine 2 Mg/1 Ml Inj IV 2 mg Q4H PRN Administration Pain, Moderate (4-6) Ondansetron HCl 4 mg 02/24/20 15:14 Ondansetron 4 Mg/2 Ml Inj IV Q8H PRN Nausea And Vomiting Sodium Chloride 10 ml 02/24/20 22:00 03/15/20 09:38 Sodium Chloride 0.9% 10 Ml Flush Syringe IV 10 ml BID UTE Administration Sodium Chloride 10 ml 02/24/20 15:14 Sodium Chloride 0.9% 10 Ml Flush Syringe IV PRN PRN LINE FLUSH Tramadol HCl 50 mg 02/29/20 22:10 03/14/20 21:12 Tramadol 50 Mg Tab PO 50 mg Q6H PRN Administration Pain, Moderate (4-6) Nutrition/Malnutrition Assess - Dietary Evaluation Nutrition/Malnutrition Findings: Nutrition Notes Start: 03/02/20 12:47 Freq: Status: Active Protocol: Document 03/02/20 12:47 EN (Rec: 03/02/20 12:53 EN [email or web address]) Co-Sign 03/02/20 12:47 MK Nutrition Notes Need for Assessment generated from: LOS Initial or Follow up Brief Note Current Diagnosis Sepsis Other Pertinent Diagnosis COVID-19+, Pneu, acute respiratory failure Current Diet Cardiac Whitney Body Weight (kg) 0 Subjective/Other Information Pt screened for LOS. Unable to reach pt by phone x2 for assessment. RN unsure of current PO intakes for today but states pt has not had any N/V/D. Per chart, 100% meal consumption consistently Nutrition Intervention Anticipated Discharge Needs: Cardiac diet Revisit per MD consult or patient Sign Off request:
[2020-03-16] MEDS: CHOLECALCIFEROL (VIT D3) 5,000 UNIT TAB PO SCH (09:39)
[2020-03-16] MEDS: ASCORBIC ACID 500 MG TAB PO SCH ×2 (09:39→22:13)
[2020-03-16] MEDS: FAMOTIDINE 20 MG TAB PO SCH ×2 (09:39→22:13)
[2020-03-16] MEDS: BENZONATATE 100 MG CAP PO SCH ×2 (09:40→22:14)
[2020-03-16] MEDS: ENOXAPARIN 80 MG/0.8 ML INJ SUB-Q SCH ×2 (09:40→22:13)
--- NOTE | 2020-03-16 13:46 | Progress Note ---
Assessment and Plan PUI-COVID Acute hypoxemic respiratory failure Severe sepsis Bilateral pneumonia HFpEF Morbid obesity - repeat CXR with increasing infiltrates - continue BIPAP qhs with prn daytime use - prn gentle diuresis - continue care as below otherwise; - s/p systemic steroids for >/= 10 days - s/p Remdesivir course - accuchecks with glycemic control per SSI for target blood glucose < 180 mg/dL; avoid hypoglycemia - wean supplemental oxygen for target O2 sat's > 92% acutely - VAP bundle addressed - bronchodilators with pulmonary hygiene per RT - avoid nephrotoxins, renally dose all medications - antiinfective's per ID rec's - prn analgesia per pain score - Maintenance of sleep-wake cycle, avoid delirium - aspiration precautions - G.I. & VTE prophylaxis (empiric weight based full dose anticoagulation acutely) - PT/OT/ROM exercises - continue mobility protocols for pressure ulcer prophylaxis - Monitor hemodynamics closely - continue other care per attending / other consultants - discharge planning ongoing concurrently .... Re-evaluate in am & prn Subjective Date of service: 03/16/20 Principal diagnosis: PUI COVID-19; Ac hypoxemic resp failure; Severe sepsis; Pneumonia; Obesity Interval history: Patient is seen today for: PUI COVID-19; Acute hypoxemic respiratory failure; Severe sepsis; Bilateral pneumonia; Morbid obesity Seen and examined at bedside; 24hour events reviewed; nursing and respiratory care staff consulted; no adverse overnight events reported to me; restring peacefully in bed; cough better; No N/V/F/C; denies acute chest pains or palpitations Objective Vital Signs - 12hr 03/16/20 03/16/20 03/16/20 04:23 09:51 12:03 Temperature 98.1 F Pulse Rate 82 Respiratory 17 Rate Blood Pressure 100/48 O2 Sat by Pulse 95 96 95 Oximetry Constitutional: no acute distress, alert, other (middle aged obese female with mildly increased respiratory effort at rest) Eyes: non-icteric ENT: oropharynx moist Neck: supple, no lymphadenopathy, no JVD Effort: mildly labored Ascultation: Bilateral: rhonchi Percussion: Bilateral: not dull Cardiovascular: regular rate and rhythm Gastrointestinal: normoactive bowel sounds, soft, non-tender, non-distended ( protuberant) Integumentary: normal Extremities: no cyanosis, no edema Neurologic: non-focal exam, pupils equal and round, CN II-XII normal, motor strength normal and Psychiatric: mood appropriate, affect normal CBC and BMP: 03/13/20 07:23 03/13/20 07:23 ABG, PT/INR, D-dimer: ABG ABG pH 7.439 pH Units (7.350-7.450) 03/06/20 09:40 POC ABG pCO2 40.0 mmHg (32.0-48.0) 03/01/20 08:53 ABG pCO2 36.8 mm Hg 03/06/20 09:40 POC ABG pO2 71.9 mmHg (83-108) L 03/01/20 08:53 ABG pO2 77.4 mm Hg (80.0-90.0) L 03/06/20 09:40 POC ABG HCO3 28.0 03/01/20 08:53 ABG O2 Saturation 96.0 % (95.0-99.0) 03/06/20 09:40 PT/INR, D-dimer D-Dimer 1170.89 ng/mlDDU (0-234) H 03/05/20 16:48 Abnormal lab findings: Abnormal Labs 02/24/20 02/24/20 02/24/20 12:07 12:07 12:07 WBC RBC MCHC 35 H Lymph % (Auto) Lymph # (Auto) Seg Neutrophils % 76.6 H Seg Neuts % (Manual) Lymphocytes % (Manual) Seg Neutrophils # Seg Neutrophils # Man Lymphocytes # (Manual) Monocytes # (Manual) D-Dimer 236.88 H ABG pH POC ABG pO2 ABG pO2 ABG O2 Saturation ABG Glucose Oxyhemoglobin Carboxyhemoglobin Sodium Potassium 3.4 L Chloride BUN Creatinine Glucose POC Glucose Ferritin AST 42 H ALT Alkaline Phosphatase Lactate Dehydrogenase C-Reactive Protein Total Protein Albumin Lipase Arterial Blood Glucose Coronavirus (PCR) SARS-CoV-2 IgG Ab 02/24/20 02/24/20 02/25/20 12:07 12:07 05:16 WBC RBC 3.53 L MCHC Lymph % (Auto) Lymph # (Auto) 1.1 L Seg Neutrophils % 75.0 H Seg Neuts % (Manual) Lymphocytes % (Manual) Seg Neutrophils # Seg Neutrophils # Man Lymphocytes # (Manual) Monocytes # (Manual) D-Dimer ABG pH POC ABG pO2 ABG pO2 ABG O2 Saturation ABG Glucose Oxyhemoglobin Carboxyhemoglobin Sodium Potassium Chloride BUN Creatinine Glucose 101 H POC Glucose Ferritin 200.8 H AST ALT Alkaline Phosphatase Lactate Dehydrogenase 315 H C-Reactive Protein 12.00 H Total Protein Albumin Lipase Arterial Blood Glucose Coronavirus (PCR) SARS-CoV-2 IgG Ab 02/25/20 02/25/20 02/25/20 05:16 08:21 11:52 WBC RBC MCHC Lymph % (Auto) Lymph # (Auto) Seg Neutrophils % Seg Neuts % (Manual) Lymphocytes % (Manual) Seg Neutrophils # Seg Neutrophils # Man Lymphocytes # (Manual) Monocytes # (Manual) D-Dimer ABG pH POC ABG pO2 ABG pO2 ABG O2 Saturation ABG Glucose Oxyhemoglobin Carboxyhemoglobin Sodium Potassium Chloride 109.8 H BUN Creatinine 0.4 L Glucose 143 H POC Glucose 123 H 133 H Ferritin AST ALT Alkaline Phosphatase Lactate Dehydrogenase C-Reactive Protein Total Protein Albumin Lipase Arterial Blood Glucose Coronavirus (PCR) SARS-CoV-2 IgG Ab 02/25/20 02/25/20 02/25/20 14:21 14:21 14:21 WBC RBC MCHC Lymph % (Auto) Lymph # (Auto) Seg Neutrophils % Seg Neuts % (Manual) Lymphocytes % (Manual) Seg Neutrophils # Seg Neutrophils # Man Lymphocytes # (Manual) Monocytes # (Manual) D-Dimer 396.96 H ABG pH POC ABG pO2 ABG pO2 ABG O2 Saturation ABG Glucose Oxyhemoglobin Carboxyhemoglobin Sodium Potassium Chloride BUN Creatinine Glucose 163 H POC Glucose Ferritin 335.1 H AST ALT Alkaline Phosphatase Lactate Dehydrogenase 406 H C-Reactive Protein 6.10 H Total Protein Albumin Lipase Arterial Blood Glucose Coronavirus (PCR) SARS-CoV-2 IgG Ab 02/25/20 02/25/20 02/26/20 16:17 22:45 07:55 WBC RBC MCHC Lymph % (Auto) Lymph # (Auto) Seg Neutrophils % Seg Neuts % (Manual) Lymphocytes % (Manual) Seg Neutrophils # Seg Neutrophils # Man Lymphocytes # (Manual) Monocytes # (Manual) D-Dimer ABG pH POC ABG pO2 ABG pO2 ABG O2 Saturation ABG Glucose Oxyhemoglobin Carboxyhemoglobin Sodium Potassium Chloride BUN Creatinine Glucose POC Glucose 124 H 154 H 124 H Ferritin AST ALT Alkaline Phosphatase Lactate Dehydrogenase C-Reactive Protein Total Protein Albumin Lipase Arterial Blood Glucose Coronavirus (PCR) SARS-CoV-2 IgG Ab 02/26/20 02/26/20 02/26/20 10:45 12:10 16:51 WBC RBC MCHC Lymph % (Auto) Lymph # (Auto) Seg Neutrophils % Seg Neuts % (Manual) Lymphocytes % (Manual) Seg Neutrophils # Seg Neutrophils # Man Lymphocytes # (Manual) Monocytes # (Manual) D-Dimer ABG pH POC ABG pO2 ABG pO2 ABG O2 Saturation ABG Glucose Oxyhemoglobin Carboxyhemoglobin Sodium Potassium Chloride BUN Creatinine Glucose POC Glucose 121 H 129 H Ferritin AST ALT Alkaline Phosphatase Lactate Dehydrogenase C-Reactive Protein Total Protein Albumin Lipase Arterial Blood Glucose Coronavirus (PCR) Positive A SARS-CoV-2 IgG Ab 02/26/20 02/27/20 02/27/20 22:00 07:58 12:04 WBC RBC MCHC Lymph % (Auto) Lymph # (Auto) Seg Neutrophils % Seg Neuts % (Manual) Lymphocytes % (Manual) Seg Neutrophils # Seg Neutrophils # Man Lymphocytes # (Manual) Monocytes # (Manual) D-Dimer ABG pH POC ABG pO2 ABG pO2 ABG O2 Saturation ABG Glucose Oxyhemoglobin Carboxyhemoglobin Sodium Potassium Chloride BUN Creatinine Glucose POC Glucose 134 H 115 H 146 H Ferritin AST ALT Alkaline Phosphatase Lactate Dehydrogenase C-Reactive Protein Total Protein Albumin Lipase Arterial Blood Glucose Coronavirus (PCR) SARS-CoV-2 IgG Ab 02/27/20 02/28/20 02/28/20 17:21 16:03 16:03 WBC RBC MCHC Lymph % (Auto) Lymph # (Auto) Seg Neutrophils % Seg Neuts % (Manual) Lymphocytes % (Manual) Seg Neutrophils # Seg Neutrophils # Man Lymphocytes # (Manual) Monocytes # (Manual) D-Dimer 995.51 H ABG pH POC ABG pO2 ABG pO2 ABG O2 Saturation ABG Glucose Oxyhemoglobin Carboxyhemoglobin Sodium Potassium Chloride BUN Creatinine Glucose POC Glucose 136 H Ferritin 464.3 H AST ALT Alkaline Phosphatase Lactate Dehydrogenase C-Reactive Protein Total Protein Albumin Lipase Arterial Blood Glucose Coronavirus (PCR) SARS-CoV-2 IgG Ab 02/28/20 02/28/20 02/28/20 16:03 16:03 16:03 WBC RBC MCHC Lymph % (Auto) Lymph # (Auto) Seg Neutrophils % Seg Neuts % (Manual) Lymphocytes % (Manual) Seg Neutrophils # Seg Neutrophils # Man Lymphocytes # (Manual) Monocytes # (Manual) D-Dimer ABG pH POC ABG pO2 ABG pO2 ABG O2 Saturation ABG Glucose Oxyhemoglobin Carboxyhemoglobin Sodium Potassium Chloride BUN 23 H Creatinine 0.4 L Glucose 120 H POC Glucose Ferritin AST 72 H ALT 117 H Alkaline Phosphatase 137 H Lactate Dehydrogenase 779 H C-Reactive Protein 6.10 H Total Protein Albumin 3.0 L Lipase Arterial Blood Glucose Coronavirus (PCR) SARS-CoV-2 IgG Ab Reactive A 02/28/20 02/29/20 02/29/20 22:06 07:38 11:11 WBC RBC MCHC Lymph % (Auto) Lymph # (Auto) Seg Neutrophils % Seg Neuts % (Manual) Lymphocytes % (Manual) Seg Neutrophils # Seg Neutrophils # Man Lymphocytes # (Manual) Monocytes # (Manual) D-Dimer ABG pH POC ABG pO2 ABG pO2 ABG O2 Saturation ABG Glucose Oxyhemoglobin Carboxyhemoglobin Sodium Potassium Chloride BUN Creatinine Glucose POC Glucose 119 H 121 H 129 H Ferritin AST ALT Alkaline Phosphatase Lactate Dehydrogenase C-Reactive Protein Total Protein Albumin Lipase Arterial Blood Glucose Coronavirus (PCR) SARS-CoV-2 IgG Ab 02/29/20 02/29/20 03/01/20 15:58 22:02 05:23 WBC RBC MCHC Lymph % (Auto) Lymph # (Auto) Seg Neutrophils % Seg Neuts % (Manual) Lymphocytes % (Manual) Seg Neutrophils # Seg Neutrophils # Man Lymphocytes # (Manual) Monocytes # (Manual) D-Dimer 1841.84 H ABG pH POC ABG pO2 ABG pO2 ABG O2 Saturation ABG Glucose Oxyhemoglobin Carboxyhemoglobin Sodium Potassium Chloride BUN Creatinine Glucose POC Glucose 118 H 141 H Ferritin AST ALT Alkaline Phosphatase Lactate Dehydrogenase C-Reactive Protein Total Protein Albumin Lipase Arterial Blood Glucose Coronavirus (PCR) SARS-CoV-2 IgG Ab 03/01/20 03/01/20 03/01/20 05:23 05:23 05:23 WBC 17.6 H RBC MCHC Lymph % (Auto) Lymph # (Auto) Seg Neutrophils % Seg Neuts % (Manual) 96.0 H Lymphocytes % (Manual) 2.0 L Seg Neutrophils # Seg Neutrophils # Man 16.9 H Lymphocytes # (Manual) 0.4 L Monocytes # (Manual) D-Dimer ABG pH POC ABG pO2 ABG pO2 ABG O2 Saturation ABG Glucose Oxyhemoglobin Carboxyhemoglobin Sodium Potassium Chloride BUN 19 H Creatinine 0.3 L Glucose 145 H POC Glucose Ferritin 323.9 H AST ALT 63 H Alkaline Phosphatase 132 H Lactate Dehydrogenase 746 H C-Reactive Protein 6.80 H Total Protein Albumin 2.9 L Lipase Arterial Blood Glucose Coronavirus (PCR) SARS-CoV-2 IgG Ab 03/01/20 03/01/20 03/01/20 06:30 08:53 11:07 WBC RBC MCHC Lymph % (Auto) Lymph # (Auto) Seg Neutrophils % Seg Neuts % (Manual) Lymphocytes % (Manual) Seg Neutrophils # Seg Neutrophils # Man Lymphocytes # (Manual) Monocytes # (Manual) D-Dimer ABG pH 7.463 H POC ABG pO2 71.9 L ABG pO2 ABG O2 Saturation ABG Glucose 147 H Oxyhemoglobin Carboxyhemoglobin 0.2 L Sodium Potassium Chloride BUN Creatinine Glucose POC Glucose 132 H 126 H Ferritin AST ALT Alkaline Phosphatase Lactate Dehydrogenase C-Reactive Protein Total Protein Albumin Lipase Arterial Blood Glucose 147 H Coronavirus (PCR) SARS-CoV-2 IgG Ab 03/01/20 03/01/20 03/02/20 15:50 21:24 08:08 WBC RBC MCHC Lymph % (Auto) Lymph # (Auto) Seg Neutrophils % Seg Neuts % (Manual) Lymphocytes % (Manual) Seg Neutrophils # Seg Neutrophils # Man Lymphocytes # (Manual) Monocytes # (Manual) D-Dimer ABG pH POC ABG pO2 ABG pO2 ABG O2 Saturation ABG Glucose Oxyhemoglobin Carboxyhemoglobin Sodium Potassium Chloride BUN Creatinine Glucose POC Glucose 122 H 142 H 152 H Ferritin AST ALT Alkaline Phosphatase Lactate Dehydrogenase C-Reactive Protein Total Protein Albumin Lipase Arterial Blood Glucose Coronavirus (PCR) SARS-CoV-2 IgG Ab 03/02/20 03/02/20 03/02/20 11:41 16:51 21:56 WBC RBC MCHC Lymph % (Auto) Lymph # (Auto) Seg Neutrophils % Seg Neuts % (Manual) Lymphocytes % (Manual) Seg Neutrophils # Seg Neutrophils # Man Lymphocytes # (Manual) Monocytes # (Manual) D-Dimer ABG pH POC ABG pO2 ABG pO2 ABG O2 Saturation ABG Glucose Oxyhemoglobin Carboxyhemoglobin Sodium Potassium Chloride BUN Creatinine Glucose POC Glucose 136 H 137 H 126 H Ferritin AST ALT Alkaline Phosphatase Lactate Dehydrogenase C-Reactive Protein Total Protein Albumin Lipase Arterial Blood Glucose Coronavirus (PCR) SARS-CoV-2 IgG Ab 03/03/20 03/03/20 03/03/20 08:05 13:10 19:32 WBC RBC MCHC Lymph % (Auto) Lymph # (Auto) Seg Neutrophils % Seg Neuts % (Manual) Lymphocytes % (Manual) Seg Neutrophils # Seg Neutrophils # Man Lymphocytes # (Manual) Monocytes # (Manual) D-Dimer ABG pH POC ABG pO2 ABG pO2 ABG O2 Saturation ABG Glucose Oxyhemoglobin Carboxyhemoglobin Sodium Potassium Chloride BUN 27 H Creatinine 0.5 L D Glucose 200 H POC Glucose 147 H 114 H Ferritin AST ALT Alkaline Phosphatase Lactate Dehydrogenase C-Reactive Protein Total Protein Albumin 3.1 L Lipase Arterial Blood Glucose Coronavirus (PCR) SARS-CoV-2 IgG Ab 03/03/20 03/03/20 03/03/20 19:32 19:39 22:44 WBC 20.3 H RBC MCHC Lymph % (Auto) Lymph # (Auto) Seg Neutrophils % Seg Neuts % (Manual) 90.0 H Lymphocytes % (Manual) 4.0 L Seg Neutrophils # Seg Neutrophils # Man 18.3 H Lymphocytes # (Manual) 0.8 L Monocytes # (Manual) 1.2 H D-Dimer ABG pH POC ABG pO2 ABG pO2 ABG O2 Saturation ABG Glucose Oxyhemoglobin Carboxyhemoglobin Sodium Potassium Chloride BUN Creatinine Glucose POC Glucose 186 H 159 H Ferritin AST ALT Alkaline Phosphatase Lactate Dehydrogenase C-Reactive Protein Total Protein Albumin Lipase Arterial Blood Glucose Coronavirus (PCR) SARS-CoV-2 IgG Ab 03/04/20 03/04/20 03/04/20 06:06 06:06 07:52 WBC 17.2 H RBC MCHC Lymph % (Auto) Lymph # (Auto) Seg Neutrophils % Seg Neuts % (Manual) 88.0 H Lymphocytes % (Manual) 5.0 L Seg Neutrophils # 15.3 H Seg Neutrophils # Man 15.1 H Lymphocytes # (Manual) 0.9 L Monocytes # (Manual) D-Dimer ABG pH POC ABG pO2 ABG pO2 ABG O2 Saturation ABG Glucose Oxyhemoglobin Carboxyhemoglobin Sodium Potassium Chloride BUN 31 H Creatinine 0.4 L Glucose 144 H POC Glucose 131 H Ferritin AST ALT Alkaline Phosphatase Lactate Dehydrogenase C-Reactive Protein Total Protein Albumin 3.0 L Lipase Arterial Blood Glucose Coronavirus (PCR) SARS-CoV-2 IgG Ab 03/04/20 03/04/20 03/04/20 11:30 11:40 16:21 WBC RBC MCHC Lymph % (Auto) Lymph # (Auto) Seg Neutrophils % Seg Neuts % (Manual) Lymphocytes % (Manual) Seg Neutrophils # Seg Neutrophils # Man Lymphocytes # (Manual) Monocytes # (Manual) D-Dimer ABG pH 7.489 H POC ABG pO2 ABG pO2 54.6 L ABG O2 Saturation 90.4 L ABG Glucose Oxyhemoglobin 89.1 L Carboxyhemoglobin Sodium Potassium Chloride BUN Creatinine Glucose POC Glucose 121 H 155 H Ferritin AST ALT Alkaline Phosphatase Lactate Dehydrogenase C-Reactive Protein Total Protein Albumin Lipase Arterial Blood Glucose Coronavirus (PCR) SARS-CoV-2 IgG Ab 03/05/20 03/05/20 03/05/20 12:01 16:48 16:48 WBC RBC MCHC Lymph % (Auto) Lymph # (Auto) Seg Neutrophils % Seg Neuts % (Manual) Lymphocytes % (Manual) Seg Neutrophils # Seg Neutrophils # Man Lymphocytes # (Manual) Monocytes # (Manual) D-Dimer 1170.89 H ABG pH POC ABG pO2 ABG pO2 ABG O2 Saturation ABG Glucose Oxyhemoglobin Carboxyhemoglobin Sodium Potassium Chloride BUN Creatinine Glucose POC Glucose 116 H Ferritin 348.4 H AST ALT Alkaline Phosphatase Lactate Dehydrogenase C-Reactive Protein Total Protein Albumin Lipase Arterial Blood Glucose Coronavirus (PCR) SARS-CoV-2 IgG Ab 03/05/20 03/05/20 03/06/20 16:48 17:40 09:40 WBC RBC MCHC Lymph % (Auto) Lymph # (Auto) Seg Neutrophils % Seg Neuts % (Manual) Lymphocytes % (Manual) Seg Neutrophils # Seg Neutrophils # Man Lymphocytes # (Manual) Monocytes # (Manual) D-Dimer ABG pH POC ABG pO2 ABG pO2 77.4 L ABG O2 Saturation ABG Glucose Oxyhemoglobin 94.5 L Carboxyhemoglobin Sodium Potassium Chloride BUN Creatinine Glucose POC Glucose 233 H Ferritin AST ALT Alkaline Phosphatase Lactate Dehydrogenase 619 H C-Reactive Protein 3.50 H Total Protein Albumin Lipase Arterial Blood Glucose Coronavirus (PCR) SARS-CoV-2 IgG Ab 03/06/20 03/06/20 03/07/20 11:52 17:05 04:22 WBC 16.6 H RBC MCHC Lymph % (Auto) 7.9 L Lymph # (Auto) Seg Neutrophils % 87.5 H Seg Neuts % (Manual) Lymphocytes % (Manual) Seg Neutrophils # 14.5 H Seg Neutrophils # Man Lymphocytes # (Manual) Monocytes # (Manual) D-Dimer ABG pH POC ABG pO2 ABG pO2 ABG O2 Saturation ABG Glucose Oxyhemoglobin Carboxyhemoglobin Sodium Potassium Chloride BUN Creatinine Glucose POC Glucose 168 H 163 H Ferritin AST ALT Alkaline Phosphatase Lactate Dehydrogenase C-Reactive Protein Total Protein Albumin Lipase Arterial Blood Glucose Coronavirus (PCR) SARS-CoV-2 IgG Ab 03/07/20 03/07/20 03/07/20 04:22 11:27 16:55 WBC RBC MCHC Lymph % (Auto) Lymph # (Auto) Seg Neutrophils % Seg Neuts % (Manual) Lymphocytes % (Manual) Seg Neutrophils # Seg Neutrophils # Man Lymphocytes # (Manual) Monocytes # (Manual) D-Dimer ABG pH POC ABG pO2 ABG pO2 ABG O2 Saturation ABG Glucose Oxyhemoglobin Carboxyhemoglobin Sodium 134 L Potassium Chloride BUN 27 H Creatinine 0.4 L Glucose 109 H POC Glucose 108 H 140 H Ferritin AST ALT Alkaline Phosphatase Lactate Dehydrogenase C-Reactive Protein Total Protein 6.1 L Albumin 3.1 L Lipase Arterial Blood Glucose Coronavirus (PCR) SARS-CoV-2 IgG Ab 03/08/20 03/08/20 03/09/20 17:17 18:37 12:10 WBC RBC MCHC Lymph % (Auto) Lymph # (Auto) Seg Neutrophils % Seg Neuts % (Manual) Lymphocytes % (Manual) Seg Neutrophils # Seg Neutrophils # Man Lymphocytes # (Manual) Monocytes # (Manual) D-Dimer ABG pH POC ABG pO2 ABG pO2 ABG O2 Saturation ABG Glucose Oxyhemoglobin Carboxyhemoglobin Sodium Potassium Chloride BUN Creatinine Glucose POC Glucose 145 H 231 H 115 H Ferritin AST ALT Alkaline Phosphatase Lactate Dehydrogenase C-Reactive Protein Total Protein Albumin Lipase Arterial Blood Glucose Coronavirus (PCR) SARS-CoV-2 IgG Ab 03/10/20 03/10/20 03/12/20 11:23 15:34 10:19 WBC RBC MCHC Lymph % (Auto) Lymph # (Auto) Seg Neutrophils % Seg Neuts % (Manual) Lymphocytes % (Manual) Seg Neutrophils # Seg Neutrophils # Man Lymphocytes # (Manual) Monocytes # (Manual) D-Dimer ABG pH POC ABG pO2 ABG pO2 ABG O2 Saturation ABG Glucose Oxyhemoglobin Carboxyhemoglobin Sodium Potassium Chloride BUN Creatinine Glucose POC Glucose 125 H Ferritin 319.4 H AST ALT Alkaline Phosphatase Lactate Dehydrogenase C-Reactive Protein Total Protein 5.9 L Albumin 3.0 L Lipase 86 H Arterial Blood Glucose Coronavirus (PCR) SARS-CoV-2 IgG Ab 03/13/20 03/13/20 03/14/20 07:23 07:23 04:40 WBC 12.2 H RBC MCHC Lymph % (Auto) Lymph # (Auto) Seg Neutrophils % Seg Neuts % (Manual) Lymphocytes % (Manual) Seg Neutrophils # Seg Neutrophils # Man Lymphocytes # (Manual) Monocytes # (Manual) D-Dimer ABG pH POC ABG pO2 ABG pO2 ABG O2 Saturation ABG Glucose Oxyhemoglobin Carboxyhemoglobin Sodium 136 L Potassium Chloride BUN 20 H Creatinine 0.5 L Glucose POC Glucose Ferritin AST ALT Alkaline Phosphatase Lactate Dehydrogenase C-Reactive Protein Total Protein 6.1 L Albumin 3.1 L Lipase 68 H Arterial Blood Glucose Coronavirus (PCR) SARS-CoV-2 IgG Ab Chest x-ray: image reviewed (more diffuse spread of infiltrates) Allied health notes reviewed: nursing
--- NOTE | 2020-03-16 13:57 | Discharge Summary ---
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 Hospitalization Reason for admission: Worsening shortness of breath , nausea vomiting Condition: Stable Pertinent studies: CTA chest lower extremity venous Doppler Echocardiogram multiple chest x-rays Hospital course: 50 YO splenic female patient with no significant past medical history except from obesity was admitted through emergency room with symptoms of not feeling well , evaluated by primary care physician patient received treatment for possible pneumonia however no improvement , patient presented to the ER with symptoms of loss of sense of smell and multiple episodes of nausea vomiting and loose stool , patient was admitted as PUI , calle PCR was checked 20 be positive, patient was in isolation, ID has evaluated, patient received dexamethasone and remdesivir per protocols, patient became severely hypoxemic Managed symptomatically and with oxygen supplementation, IV steroids IV remdesivir and supplemental oxygen. Patient symptoms significantly improved Today patient is comfortable no new complaints vital signs stable Physical examination prior to discharge is unremarkable Patient is stable at discharge Final diagnosis; --Severe COVID-19 bilateral pneumonia Patient was managed per protocols ID has evaluated and followed the patient Patient required home oxygen 2 L nasal cannula Which was set up by case management Advised to continue self quarantine and follow COVID-19 protocols upon discharge --Acute hypoxemic respiratory failure; present on admission Patient received nasal cannula oxygen throughout the hospital stay Evaluate for home oxygen, requiring 2 to 3 L of nasal cannula --Severe Covid pneumonia; Contacting droplet isolation followed Patient received dexamethasone for 10 days Remdesivir for 5 days Inflammatory markers closely monitored Received prophylactic anticoagulation --Severe sepsis secondary to COVID-19 pneumonia; improved --Acute gastritis/GERD: Pepcid --DVT prophylaxis; Lovenox Patient is hemodynamically and clinically stable and cleared for discharge - Disposition: [id number] HOME UNDER HOME [facility] Time spent for discharge: 33 min Core Measure Documentation - Palliative Care Palliative Care/ Comfort Measures: Not Applicable - Core Measures Any of the following diagnoses?: none Exam - Constitutional Vitals: Temp Pulse Resp BP Pulse Ox 98.1 F 82 17 100/48 95 03/16/20 04:23 03/16/20 04:23 03/16/20 04:23 03/16/20 04:23 03/16/20 12:03 General appearance: Present: no acute distress, well-nourished - EENT Eyes: Present: PERRL, EOM intact - Neck Neck: Present: supple, normal ROM - Respiratory Respiratory effort: normal Respiratory: bilateral: diminished, negative: rales, rhonchi, wheezing - Cardiovascular Rhythm: regular Heart Sounds: Present: S1 & S2 - Extremities Extremities: no ischemia, No edema - Abdominal General gastrointestinal: Present: soft, non-tender, non-distended, normal bowel sounds - Integumentary Integumentary: Present: clear, warm - Musculoskeletal Musculoskeletal: strength equal bilaterally, generalized weakness - Psychiatric Psychiatric: appropriate mood/affect, cooperative - Neurologic Neurologic: moves all extremities Plan Activity: advance as tolerated Diet: regular Special Instructions: home oxygen via (Via nasal cannula 2-3 lt) Additional Instructions: Use oxygen 2 to 3 L as needed. If you have worsening symptoms contact MD or go to emergency room. Advised self quarantine, facemask, handwashing, social distancing. And follow all the Covid protocol instructions given to you by discharge nurse. Exercise as tolerated and weight reduction Follow up with: PRIMARY CAREMD [Primary Care Provider] - 7 Days ROSA FISHER MD [Staff Physician] - 7 Days Prescriptions: Famotidine [Pepcid] 10 mg PO BID #20 tablet Prednisone [predniSONE 10 mg (6-Day Pack, 21 Tabs)] 10 mg PO .TAPER #1 tab.ds.pk Albuterol Mdi (or & Nicu Only) [ProAir HFA Inhaler] 1 puff IH QID PRN #8.5 gram PRN Reason: Shortness Of Breath guaiFENesin/DEXTROMETHORPHAN [Robitussin Cough-Chest Dm Liq] 15 ml PO Q4H PRN 15 Days #1 bottle PRN Reason: Cough
[2020-03-16] MEDS: HYDROcodone/HOMATROPINE 5-1.5MG /5 ML ORAL LIQD UNIT DOSE PO PRN (17:11)
--- NOTE | 2020-03-16 18:17 | Progress Note ---
Assessment and Plan Assessment and plan: --Worsening patchy bilateral opacities: on follow-up x-ray on 03/14/2020/yesterday We will hold off discharge and closely monitor next 24 hours Patient's ambulatory O2 sats dropped to 82% per nurse Continue current management Possible discharge in 1 to 2 days if stable -- Acute hypoxemic respiratory failure Current Visit: Yes Status: Acute Plan to address problem: Patient on 40 L high flow oxygen Worsening clinical picture Slightly improved on nasal cannula oxygen -- Covid pneumonia Current Visit: Yes Status: Acute Plan to address problem: Patient is coronavirus PCR positive on 02/26/2020 Patient is also SARS-CoV-2 IgG positive Patient is not a candidate for Covid convalescent plasma Steroids, remdesivir for total 5 days Continue anticoagulation Prone positioning as possible High flow oxygen Wean to nasal cannula oxygen Home O2 evaluation -- Pneumonia Current Visit: Yes Status: Acute Plan to address problem: Follow-up chest x-ray worsening bilateral infiltrates Continue oxygen and supportive care -- severe sepsis Remains hypoxic likely due to bilateral pneumonia Continue IV antibiotics --Abdominal Pain; acute gastritis supportive care, abdominal ultrasound, possible GI consult if no improvement --DVT prophylaxis Current Visit: Yes Status: Acute Plan to address problem: High-dose Lovenox Monitor closely and adjust the management as needed Plan of care reviewed with the patient and her nurse as well as the case management Consults and recommendations noted and appreciated Evaluate for home oxygen Possible discharge home tomorrow if stable and if oxygen concentrator is available Consults and recommendations noted and appreciated DC planning per case management 50 YO Female with Obesity Hypoventilation Syndrome presents to ED for evaluation. Patient states that she has "been feeling sick" for the past 2 weeks with persistent symptoms over the same timeframe. Patient was seen and evaluated by her primary care physician and treated with oral antibiotics for outpatient pneumonia. Patient states that she has experienced persistent symptoms in spite of of compliance with medication. Patient reports fever, dry cough, shortness of breath, decreased exercise tolerance, nausea, multiple episodes of vomiting, multiple loose stools, loss of sense of smell, loss of sense of taste, fatigue, malaise, body aches. Patient transported to [facility] via private vehicle for further care and evaluation of the aforementioned symptoms. Patient seen and evaluated in the emergency department. All lab and imaging studies reviewed. Patient found to have a fever to 102.1 F, as well as a pulse oximetry of 88% with exertion on room air which is consistent with acute hypoxemic respiratory failure. Patient underwent chest x-ray which revealed bilateral pneumonia. Patient admitted to medical floor and initiated on pneumonia protocol as well as coronavirus protocol. Coronavirus PCR ordered in the emergency department and is pending at time of admission. Patient acknowledges fever, but denies chest pain, palpitation, skin rash, recent ill contacts, trauma, or known exposure to COVID-19. No medication listed at time of admission. No prior admission for review. 02/29/2020 Patient alert, awake. Having cough. Having mild shortness of breath at rest. Patient is on vapotherm, FIO2 100% and O2 saturation 90%. Patient switched to BIPAP. But patient not using it.Patient afebrile. No leukocytosis. Complaining headache at times.Patients [place] virus PCR is Positive. Patients chest xray done 02/24/20 reported Patchy bilateral pulmonary opacities are concerning for infection/pneumonia. 03/01/2020 03/01/2020 Patient on high flow oxygen and BiPAP 03/02/2020 Patient still on high flow oxygen and BiPAP 03/03/2020 Patient with worsening inflammatory markers Chest x-ray worsening with extensive consolidations Patient will be transferred to ICU 03/04/2020 Patient on high flow oxygen-40 L Worsening pulmonary alveolar infiltrates Possible intubation !05/07/19 On High flow oxygen 03/07/2020 Patient still on high flow oxygen Not intubated 03/08- on HFNC 03/10: Clinically showing some improvement as HFNC is improving. Continue weaning as tolerated 03/11: Continue supportive care, weaning oxygen as tolerated. Can transfer to 3rd floor if weaned off HFNC. 03/12: Patient respiratory meier continues to improve, did have some abdominal pain with FOOD, Will check LFT, ammonia, and Lipase and abdominal ultrasound, considering patient is 35% FIO2, will transfer to [facility]. 03/14; patient feels slightly better abdominal pain significantly improved Patient was on high flow oxygen for few days, currently on 4 L nasal cannula oxygen Wean and titrate to O2 sats more than 90% Check resting and ambulatory room air O2 sats, Case management for possible home health Possible discharge in 1 to 2 days if stable and if cleared by pulmonary 03/15: Initially was planning to discharge home on nasal cannula oxygen However patient's repeat x-ray l yesterday t showed worsening infiltrates, worsening shortness of breath We will closely monitor next 24 hours, and DC home if stable Resting O2 90%, ambulatory room air O2 83%, on 2 L of nasal cannula oxygen improved to 95% Recommended home oxygen, patient uninsured no resources, patient's family willing to pay for for the oxygen Patient will be discharged tomorrow if stable 03/17/2020; patient feels slightly better still hypoxic, oxygen is available fermin jose antonio there is shortage of O2 concentrator Will check with case management about discharge plan, possible discharge home tomorrow if O2 concentrator and oxygen are set up History Interval history: Patient was initially discharged However case management reports there is no oxygen concentrator available Patient cannot get home oxygen Discharge held Hospitalist Physical - Constitutional Vitals: Temp Pulse Resp BP Pulse Ox 98.1 F 82 17 100/48 95 03/16/20 04:23 03/16/20 04:23 03/16/20 04:23 03/16/20 04:23 03/16/20 12:03 General appearance: Present: mild distress, well-nourished, other (Hypoxic) - EENT Eyes: Present: PERRL, EOM intact ENT: hearing intact, clear oral mucosa - Neck Neck: Present: supple, normal ROM - Respiratory Respiratory effort: normal Respiratory: bilateral: diminished, rhonchi, negative: rales, wheezing - Cardiovascular Rhythm: regular Heart Sounds: Present: S1 & S2 - Extremities Extremities: no ischemia, No edema - Abdominal General gastrointestinal: soft, non-tender, non-distended, normal bowel sounds - Integumentary Integumentary: Present: clear, warm - Psychiatric Psychiatric: appropriate mood/affect, cooperative - Neurologic Neurologic: CNII-XII intact, moves all extremities HEART Score - HEART Score Troponin: Troponin T < 0.010 ng/mL (0.00-0.029) 02/28/20 16:03 Results - Labs CBC & Chem 7: 03/13/20 07:23 03/13/20 07:23 Labs: Laboratory Last Values WBC 12.2 K/mm3 (4.5-11.0) H 03/13/20 07:23 RBC 4.00 M/mm3 (3.65-5.03) 03/13/20 07:23 Hgb 12.0 gm/dl (10.1-14.3) 03/13/20 07:23 Hct 36.2 % (30.3-42.9) 03/13/20 07:23 MCV 90 fl (79-97) 03/13/20 07:23 MCH 30 pg (28-32) 03/13/20 07:23 MCHC 33 % (30-34) 03/13/20 07:23 RDW 13.8 % (13.2-15.2) 03/13/20 07:23 Plt Count 215 K/mm3 (140-440) 03/13/20 07:23 Lymph % (Auto) 7.9 % (13.4-35.0) L 03/07/20 04:22 [place] % (Auto) 3.5 % (0.0-7.3) 03/07/20 04:22 Eos % (Auto) 0.9 % (0.0-4.3) 03/07/20 04:22 Baso % (Auto) 0.2 % (0.0-1.8) 03/07/20 04:22 Lymph # (Auto) 1.3 K/mm3 (1.2-5.4) 03/07/20 04:22 [place] # (Auto) 0.6 K/mm3 (0.0-0.8) 03/07/20 04:22 Eos # (Auto) 0.2 K/mm3 (0.0-0.4) 03/07/20 04:22 Baso # (Auto) 0.0 K/mm3 (0.0-0.1) 03/07/20 04:22 Add Manual Diff Complete 03/04/20 06:06 Total Counted 100 03/04/20 06:06 Seg Neutrophils % 87.5 % (40.0-70.0) H 03/07/20 04:22 Seg Neuts % (Manual) 88.0 % (40.0-70.0) H 03/04/20 06:06 Lymphocytes % (Manual) 5.0 % (13.4-35.0) L 03/04/20 06:06 Reactive Lymphs % (Man) 1.0 % 03/04/20 06:06 Monocytes % (Manual) 4.0 % (0.0-7.3) 03/04/20 06:06 Eosinophils % (Manual) 1.0 % (0.0-4.3) 03/04/20 06:06 Metamyelocytes % 1.0 % 03/04/20 06:06 Nucleated RBC % Not Reportable 03/04/20 06:06 Seg Neutrophils # 14.5 K/mm3 (1.8-7.7) H 03/07/20 04:22 Seg Neutrophils # Man 15.1 K/mm3 (1.8-7.7) H 03/04/20 06:06 Band Neutrophils # 0.0 K/mm3 03/04/20 06:06 Lymphocytes # (Manual) 0.9 K/mm3 (1.2-5.4) L 03/04/20 06:06 Abs React Lymphs (Man) 0.2 K/mm3 03/04/20 06:06 Monocytes # (Manual) 0.7 K/mm3 (0.0-0.8) 03/04/20 06:06 Eosinophils # (Manual) 0.2 K/mm3 (0.0-0.4) 03/04/20 06:06 Basophils # (Manual) 0.0 K/mm3 (0.0-0.1) 03/04/20 06:06 Metamyelocytes # 0.2 K/mm3 03/04/20 06:06 Myelocytes # 0.0 K/mm3 03/04/20 06:06 Promyelocytes # 0.0 K/mm3 03/04/20 06:06 Blast Cells # 0.0 K/mm3 03/04/20 06:06 WBC Morphology Not Reportable 03/04/20 06:06 Hypersegmented Neuts Not Reportable 03/04/20 06:06 Hyposegmented Neuts Not Reportable 03/04/20 06:06 Hypogranular Neuts Not Reportable 03/04/20 06:06 Smudge Cells Not Reportable 03/04/20 06:06 Toxic Granulation Not Reportable 03/04/20 06:06 Toxic Vacuolation Not Reportable 03/04/20 06:06 Dohle Bodies Not Reportable 03/04/20 06:06 Pelger-Huet Anomaly Not Reportable 03/04/20 06:06 Mian Rods Not Reportable 03/04/20 06:06 Platelet Estimate Consistent w auto 03/04/20 06:06 Clumped Platelets Not Reportable 03/04/20 06:06 Plt Clumps, EDTA Not Reportable 03/04/20 06:06 Large Platelets Not Reportable 03/04/20 06:06 Giant Platelets Not Reportable 03/04/20 06:06 Platelet Satelliting Not Reportable 03/04/20 06:06 Plt Morphology Comment Not Reportable 03/04/20 06:06 RBC Morphology Normal 03/04/20 06:06 Dimorphic RBCs Not Reportable 03/04/20 06:06 Polychromasia Not Reportable 03/04/20 06:06 Hypochromasia Not Reportable 03/04/20 06:06 Poikilocytosis Not Reportable 03/04/20 06:06 Anisocytosis Not Reportable 03/04/20 06:06 Microcytosis Not Reportable 03/04/20 06:06 Macrocytosis Not Reportable 03/04/20 06:06 Spherocytes Not Reportable 03/04/20 06:06 Pappenheimer Bodies Not Reportable 03/04/20 06:06 Sickle Cells Not Reportable 03/04/20 06:06 Target Cells Not Reportable 03/04/20 06:06 Tear Drop Cells Not Reportable 03/04/20 06:06 Ovalocytes Not Reportable 03/04/20 06:06 Helmet Cells Not Reportable 03/04/20 06:06 Weiss-Cascade Bodies Not Reportable 03/04/20 06:06 [place] Rings Not Reportable 03/04/20 06:06 [place] Cells Not Reportable 03/04/20 06:06 Bite Cells Not Reportable 03/04/20 06:06 Crenated Cell Not Reportable 03/04/20 06:06 Elliptocytes Not Reportable 03/04/20 06:06 Acanthocytes (Spur) Not Reportable 03/04/20 06:06 Rouleaux Not Reportable 03/04/20 06:06 Hemoglobin C Crystals Not Reportable 03/04/20 06:06 Schistocytes Not Reportable 03/04/20 06:06 Malaria parasites Not Reportable 03/04/20 06:06 Jesus Bodies Not Reportable 03/04/20 06:06 Hem Pathologist Commnt No 03/04/20 06:06 D-Dimer 1170.89 ng/mlDDU (0-234) H 03/05/20 16:48 ABG pH 7.439 pH Units (7.350-7.450) 03/06/20 09:40 POC ABG pCO2 40.0 mmHg (32.0-48.0) 03/01/20 08:53 ABG pCO2 36.8 mm Hg 03/06/20 09:40 POC ABG pO2 71.9 mmHg (83-108) L 03/01/20 08:53 ABG pO2 77.4 mm Hg (80.0-90.0) L 03/06/20 09:40 POC ABG HCO3 28.0 03/01/20 08:53 ABG HCO3 24.4 mmol/L (20.0-26.0) 03/06/20 09:40 ABG O2 Saturation 96.0 % (95.0-99.0) 03/06/20 09:40 ABG O2 Content 18.4 (0.0-44) 03/06/20 09:40 POC ABG Base Excess 4.0 03/01/20 08:53 ABG Base Excess 0.5 mmol/L (-2.0-3.0) 03/06/20 09:40 ABG Hemoglobin 13.8 gm/dl (12.0-16.0) 03/06/20 09:40 ABG Oxyhemoglobin 94.1 (94-98) 03/01/20 08:53 ABG Carboxyhemoglobin 1.1 % (0.0-5.0) 03/06/20 09:40 ABG Methemoglobin 0.4 % (0.0-1.5) 03/06/20 09:40 ABG Sodium 139.8 mmol/L (136.0-145.0) 03/01/20 08:53 ABG Potassium 3.9 mmol/L (3.40-4.50) 03/01/20 08:53 ABG Chloride 105.0 mmol/L (98-107) 03/01/20 08:53 ABG Glucose 147 mg/dL (65-95) H 03/01/20 08:53 Oxyhemoglobin 94.5 % (95.0-99.0) L 03/06/20 09:40 Carboxyhemoglobin 0.2 (0.5-1.5) L 03/01/20 08:53 FiO2 100 % 03/06/20 09:40 Sodium 136 mmol/L (137-145) L 03/13/20 07:23 Potassium 3.6 mmol/L (3.6-5.0) 03/13/20 07:23 Chloride 101.3 mmol/L (98-107) 03/13/20 07:23 Carbon Dioxide 27 mmol/L (22-30) 03/13/20 07:23 Anion Gap 11 mmol/L 03/13/20 07:23 BUN 20 mg/dL (7-17) H 03/13/20 07:23 Creatinine 0.5 mg/dL (0.6-1.2) L 03/13/20 07:23 Estimated GFR > 60 ml/min 03/13/20 07:23 BUN/Creatinine Ratio 40 % 03/13/20 07:23 Glucose 88 mg/dL (65-100) 03/13/20 07:23 POC Glucose 125 mg/dL (70-105) H 03/10/20 11:23 Lactic Acid 1.00 mmol/L (0.7-2.0) 02/24/20 14:31 Calcium 8.9 mg/dL (8.4-10.2) 03/13/20 07:23 Ferritin 319.4 ng/mL (10.0-200.0) H 03/10/20 15:34 Total Bilirubin 0.20 mg/dL (0.1-1.2) 03/13/20 07:23 Direct Bilirubin < 0.2 mg/dL (0-0.2) 03/12/20 10:19 Indirect Bilirubin 0.0 mg/dL 03/12/20 10:19 AST 23 units/L (5-40) 03/13/20 07:23 ALT 51 units/L (7-56) 03/13/20 07:23 Alkaline Phosphatase 66 units/L (35-129) 03/13/20 07:23 Lactate Dehydrogenase 619 units/L (91-180) H 03/05/20 16:48 Troponin T < 0.010 ng/mL (0.00-0.029) 02/28/20 16:03 C-Reactive Protein 0.30 mg/dL (0.00-1.30) 03/10/20 15:34 NT-Pro-B Natriuret Pep 47.67 pg/mL (0-450) 03/02/20 16:51 Total Protein 6.1 g/dL (6.3-8.2) L 03/13/20 07:23 Albumin 3.1 g/dL (3.9-5) L 03/13/20 07:23 Albumin/Globulin Ratio 1.0 % 03/13/20 07:23 Lipase 68 units/L (13-60) H 03/14/20 04:40 Procalcitonin < 0.05 ng/mL (<0.15) 02/25/20 14:21 Arterial Blood Glucose 147 mg/dL (65-95) H 03/01/20 08:53 Arterial Blood Ionized Calcium 4.7 mg/dL (4.6-5.3) 03/01/20 08:53 Urine Color Yellow (Yellow) 02/24/20 Unknown Urine Turbidity Clear (Clear) 02/24/20 Unknown Urine pH 6.0 (5.0-7.0) 02/24/20 Unknown Ur Specific [place] 1.023 (1.003-1.030) 02/24/20 Unknown Urine Protein 100 mg/dl mg/dL (Negative) 02/24/20 Unknown Urine Glucose (UA) Neg mg/dL (Negative) 02/24/20 Unknown Urine Ketones Neg mg/dL (Negative) 02/24/20 Unknown Urine Blood Neg (Negative) 02/24/20 Unknown Urine Nitrite Neg (Negative) 02/24/20 Unknown Urine Bilirubin Neg (Negative) 02/24/20 Unknown Urine Urobilinogen 2.0 mg/dL (<2.0) 02/24/20 Unknown Ur Leukocyte Esterase Neg (Negative) 02/24/20 Unknown Urine WBC (Auto) 4.0 /HPF (0.0-6.0) 02/24/20 Unknown Urine RBC (Auto) 2.0 /HPF (0.0-6.0) 02/24/20 Unknown U Epithel Cells (Auto) 3.0 /HPF (0-13.0) 02/24/20 Unknown Urine Bacteria (Auto) 1+ /HPF (Negative) 02/24/20 Unknown Urine Mucus 1+ /HPF 02/24/20 Unknown Coronavirus (PCR) Positive (Negative) A 02/26/20 10:45 SARS-CoV-2 IgG Ab Reactive (NonReactive) A 02/28/20 16:03 - Diagnostic Impressions Diagnostic Impressions: Echocardiogram 03/01/20 09:12 Transthoracic Echocardiogram Indication: Eval EF; PA HTN BP: 121/78 HR: 90 Conclusions *Global left ventricular systolic function is normal. *The estimated ejection fraction is 60-65%. *The right ventricular global systolic function is normal. *There is no evidence of aortic regurgitation. *There is trace of mitral regurgitation. *There is trace tricuspid regurgitation. *The right ventricular systolic pressure is calculated at 28 mmHg. *There is trace pulmonic regurgitation. Findings Left Ventricle: The left ventricular chamber size is normal. There is no left ventricular hypertrophy. Global left ventricular wall motion and contractility are within normal limits. Global left ventricular systolic function is normal. The estimated ejection fraction is 60-65%. There is an E to A reversal in the mitral valve flow pattern suggestive of diastolic dysfunction. Left Atrium: The left atrial chamber size is normal. Right Ventricle: The right ventricular cavity size is normal. The right ventricular global systolic function is normal. Right Atrium: The right atrial cavity size is normal. Aortic Valve: There is no evidence of aortic valve thickening. There is no evidence of aortic regurgitation. Mitral Valve: The mitral valve leaflets do not appear thickened. There is trace of mitral regurgitation. Tricuspid Valve: The tricuspid valve leaflets are normal. There is trace tricuspid regurgitation. The right ventricular systolic pressure is calculated at 28 mmHg. Pulmonic Valve: There is no evidence of pulmonic valve thickening. There is trace pulmonic regurgitation. Pericardium: There is no pericardial effusion. Aorta: The aorta appears normal. Venous: The inferior vena cava appears normal in size. Measurements Chambers 2D Name Value Normal Range IVSd (2D) 0.97 cm (0.6 - 1.1) LVPWd (2D) 1.05 cm (0.6 - 1.1) LVIDd (2D) 3.87 cm (3.7 - 5.6) LVIDs (2D) 2.41 cm (2 - 3.8) LV FS (2D) 37.69 % - EF Teichholz (2D) 68.47 % - Ao root diameter (2D) 2.92 cm (2 - 3.7) Volumes/Mass Name Value Normal Range LA ESV SP 4CH (A/L) 32.2 ml - LA ESV SP 2CH (A/L) 24.78 ml - LA ESV BP (A/L) 29.52 ml - LA ESV BP (A/L) index 16.68 ml/m2 - LA ESV SP 4CH (MOD) 29.62 ml - LA ESV SP 2CH (MOD) 23.68 ml - LA ESV BP (MOD) 27.57 ml - LA ESV BP (MOD) index 15.58 ml/m2 - Diastolic/Systolic Function Name Value Normal Range MV E-wave Vmax 0.59 m/sec - MV deceleration time 258.54 msec - MV A-wave Vmax 0.73 m/sec - MV E:A ratio 0.81 ratio - Aortic Valve Name Value Normal Range AV Vmax 1.33 m/sec - AV VTI 22.87 cm - AV peak gradient 7.09 mmHg - AV mean gradient 4.39 mmHg - LVOT diameter 1.52 cm - LVOT Vmax 1.22 m/sec - LVOT VTI 20.85 cm - LVOT peak gradient 5.96 mmHg - LVOT mean gradient 2.91 mmHg - SV LVOT 37.79 ml - VINEET (continuity Vmax) 1.66 cm2 - VINEET (continuity VTI) 1.65 cm2 - Ascending Ao 2.78 cm - Tricuspid Valve Name Value Normal Range TR Vmax 2.48 m/sec - TR peak gradient 25 mmHg - RAP 3 mmHg - RVSP 28 mmHg - IVC diameter 1.77 cm (1.2 - 2.3) Pulmonic Valve/Qp:Qs Name Value Normal Range PV Vmax 0.85 m/sec - PV peak gradient 2.9 mmHg - ND end-diastolic Vmax 1.26 m/sec - PV acceleration time 144.62 msec - [place]/IV: Voiding Method Toilet IV Catheter Type [Right Peripheral IV Forearm] IV Catheter Type [Right Peripheral IV Antecubital] Active Medications - Current Medications Current Medications: Generic Name Dose Route Start Last Admin Trade Name Freq PRN Reason Stop Dose Admin Acetaminophen 650 mg 02/24/20 15:14 03/14/20 10:14 Acetaminophen 325 Mg Tab PO 650 mg Q4H PRN Administration Pain MILD(1-3)/Fever >100.5/DANGELO Albuterol 2.5 mg 02/24/20 15:14 Albuterol 2.5 Mg/3 Ml Nebu IH Q4HRT PRN Shortness Of Breath Ascorbic Acid 1,000 mg 02/29/20 23:45 03/16/20 09:39 Ascorbic Acid 500 Mg Tab PO 1,000 mg BID UTE Administration Benzonatate 100 mg 02/25/20 22:00 03/16/20 09:40 Benzonatate 100 Mg Cap PO 100 mg BID UTE Administration Cholecalciferol 5,000 unit 03/01/20 10:00 03/16/20 09:39 Cholecalciferol (Vit D3) 5,000 Unit Tab PO 5,000 unit DAILY UTE Administration Enoxaparin Sodium 80 mg 02/29/20 23:45 03/16/20 09:40 Enoxaparin 80 Mg/0.8 Ml Inj SUB-Q 80 mg Q12HR UTE Administration Protocol Famotidine 10 mg 03/13/20 23:00 03/16/20 09:39 Famotidine 20 Mg Tab PO 10 mg BID UTE Administration Hydrocodone Bit/Homatropine Methylb 10 ml 02/26/20 15:00 03/16/20 17:11 Hydrocodone/Homatropine 5-1.5mg /5 Ml Oral Liqd Unit Dose PO 10 ml Q6H PRN Administration Cough Morphine Sulfate 2 mg 03/11/20 19:35 03/13/20 10:41 Morphine 2 Mg/1 Ml Inj IV 2 mg Q4H PRN Administration Pain, Moderate (4-6) Ondansetron HCl 4 mg 02/24/20 15:14 Ondansetron 4 Mg/2 Ml Inj IV Q8H PRN Nausea And Vomiting Sodium Chloride 10 ml 02/24/20 22:00 03/16/20 09:40 Sodium Chloride 0.9% 10 Ml Flush Syringe IV 10 ml BID UTE Administration Sodium Chloride 10 ml 02/24/20 15:14 Sodium Chloride 0.9% 10 Ml Flush Syringe IV PRN PRN LINE FLUSH Tramadol HCl 50 mg 02/29/20 22:10 03/14/20 21:12 Tramadol 50 Mg Tab PO 50 mg Q6H PRN Administration Pain, Moderate (4-6) Nutrition/Malnutrition Assess - Dietary Evaluation Nutrition/Malnutrition Findings: Nutrition Notes Start: 03/02/20 12:47 Freq: Status: Active Protocol: Document 03/02/20 12:47 EN (Rec: 03/02/20 12:53 EN [email or web address]) Co-Sign 03/02/20 12:47 MK Nutrition Notes Need for Assessment generated from: LOS Initial or Follow up Brief Note Current Diagnosis Sepsis Other Pertinent Diagnosis COVID-19+, Pneu, acute respiratory failure Current Diet Cardiac Bath Body Weight (kg) 0 Subjective/Other Information Pt screened for LOS. Unable to reach pt by phone x2 for assessment. RN unsure of current PO intakes for today but states pt has not had any N/V/D. Per chart, 100% meal consumption consistently Nutrition Intervention Anticipated Discharge Needs: Cardiac diet Revisit per MD consult or patient Sign Off request:
[2020-03-16] MEDS: ACETAMINOPHEN 325 MG TAB PO PRN (20:00)
[2020-03-17] MEDS: ENOXAPARIN 80 MG/0.8 ML INJ SUB-Q SCH ×2 (09:55→21:34)
[2020-03-17] MEDS: ASCORBIC ACID 500 MG TAB PO SCH ×2 (09:55→21:34)
[2020-03-17] MEDS: FAMOTIDINE 20 MG TAB PO SCH ×2 (09:55→21:34)
[2020-03-17] MEDS: CHOLECALCIFEROL (VIT D3) 5,000 UNIT TAB PO SCH (09:55)
[2020-03-17] MEDS: BENZONATATE 100 MG CAP PO SCH ×2 (09:55→21:34)
[2020-03-17] MEDS: traMADol 50 MG TAB PO PRN (14:20)
--- NOTE | 2020-03-17 15:29 | Progress Note ---
Assessment and Plan PUI-COVID Acute hypoxemic respiratory failure Severe sepsis Bilateral pneumonia HFpEF Morbid obesity - rhome oxygen evaluatiomn - continue BIPAP qhs with prn daytime use - prn gentle diuresis - continue care as below otherwise; - s/p systemic steroids for >/= 10 days - s/p Remdesivir course - accuchecks with glycemic control per SSI for target blood glucose < 180 mg/dL; avoid hypoglycemia - wean supplemental oxygen for target O2 sat's > 92% acutely - VAP bundle addressed - bronchodilators with pulmonary hygiene per RT - avoid nephrotoxins, renally dose all medications - antiinfective's per ID rec's - prn analgesia per pain score - Maintenance of sleep-wake cycle, avoid delirium - aspiration precautions - G.I. & VTE prophylaxis (empiric weight based full dose anticoagulation acutely) - PT/OT/ROM exercises - continue mobility protocols for pressure ulcer prophylaxis - Monitor hemodynamics closely - continue other care per attending / other consultants - discharge planning ongoing concurrently .... Re-evaluate in am & prn Subjective Date of service: 03/17/20 Principal diagnosis: PUI COVID-19; Ac hypoxemic resp failure; Severe sepsis; Pneumonia; Obesity Interval history: Patient is seen today for: PUI COVID-19; Acute hypoxemic respiratory failure; Severe sepsis; Bilateral pneumonia; Morbid obesity Seen and examined at bedside; 24hour events reviewed; nursing and respiratory care staff consulted; no adverse overnight events reported to me; restring peacefully in bed; FiO2 down to 28%; no chest pain Objective Vital Signs - 12hr 03/17/20 03/17/20 04:14 12:13 Temperature 99.2 F 97.8 F Pulse Rate 89 88 Respiratory 20 24 Rate Blood Pressure 103/59 83/40 O2 Sat by Pulse 91 97 Oximetry Constitutional: no acute distress, alert, other (middle aged obese female ) Eyes: non-icteric ENT: oropharynx moist Neck: supple, no lymphadenopathy Effort: mildly labored Ascultation: Bilateral: rales (scant, bases) Percussion: Bilateral: not dull Cardiovascular: regular rate and rhythm Gastrointestinal: normoactive bowel sounds, soft, non-tender, non-distended (p rotuberant) Integumentary: normal Extremities: no cyanosis, no edema, pulses normal, no ischemia or petechiae Neurologic: normal mental status, non-focal exam, pupils equal and round, motor strength normal and Psychiatric: mood appropriate, affect normal CBC and BMP: 03/13/20 07:23 03/13/20 07:23 ABG, PT/INR, D-dimer: ABG ABG pH 7.439 pH Units (7.350-7.450) 03/06/20 09:40 POC ABG pCO2 40.0 mmHg (32.0-48.0) 03/01/20 08:53 ABG pCO2 36.8 mm Hg 03/06/20 09:40 POC ABG pO2 71.9 mmHg (83-108) L 03/01/20 08:53 ABG pO2 77.4 mm Hg (80.0-90.0) L 03/06/20 09:40 POC ABG HCO3 28.0 03/01/20 08:53 ABG O2 Saturation 96.0 % (95.0-99.0) 03/06/20 09:40 PT/INR, D-dimer D-Dimer 1170.89 ng/mlDDU (0-234) H 03/05/20 16:48 Abnormal lab findings: Abnormal Labs 02/24/20 02/24/20 02/24/20 12:07 12:07 12:07 WBC RBC MCHC 35 H Lymph % (Auto) Lymph # (Auto) Seg Neutrophils % 76.6 H Seg Neuts % (Manual) Lymphocytes % (Manual) Seg Neutrophils # Seg Neutrophils # Man Lymphocytes # (Manual) Monocytes # (Manual) D-Dimer 236.88 H ABG pH POC ABG pO2 ABG pO2 ABG O2 Saturation ABG Glucose Oxyhemoglobin Carboxyhemoglobin Sodium Potassium 3.4 L Chloride BUN Creatinine Glucose POC Glucose Ferritin AST 42 H ALT Alkaline Phosphatase Lactate Dehydrogenase C-Reactive Protein Total Protein Albumin Lipase Arterial Blood Glucose Coronavirus (PCR) SARS-CoV-2 IgG Ab 02/24/20 02/24/20 02/25/20 12:07 12:07 05:16 WBC RBC 3.53 L MCHC Lymph % (Auto) Lymph # (Auto) 1.1 L Seg Neutrophils % 75.0 H Seg Neuts % (Manual) Lymphocytes % (Manual) Seg Neutrophils # Seg Neutrophils # Man Lymphocytes # (Manual) Monocytes # (Manual) D-Dimer ABG pH POC ABG pO2 ABG pO2 ABG O2 Saturation ABG Glucose Oxyhemoglobin Carboxyhemoglobin Sodium Potassium Chloride BUN Creatinine Glucose 101 H POC Glucose Ferritin 200.8 H AST ALT Alkaline Phosphatase Lactate Dehydrogenase 315 H C-Reactive Protein 12.00 H Total Protein Albumin Lipase Arterial Blood Glucose Coronavirus (PCR) SARS-CoV-2 IgG Ab 02/25/20 02/25/20 02/25/20 05:16 08:21 11:52 WBC RBC MCHC Lymph % (Auto) Lymph # (Auto) Seg Neutrophils % Seg Neuts % (Manual) Lymphocytes % (Manual) Seg Neutrophils # Seg Neutrophils # Man Lymphocytes # (Manual) Monocytes # (Manual) D-Dimer ABG pH POC ABG pO2 ABG pO2 ABG O2 Saturation ABG Glucose Oxyhemoglobin Carboxyhemoglobin Sodium Potassium Chloride 109.8 H BUN Creatinine 0.4 L Glucose 143 H POC Glucose 123 H 133 H Ferritin AST ALT Alkaline Phosphatase Lactate Dehydrogenase C-Reactive Protein Total Protein Albumin Lipase Arterial Blood Glucose Coronavirus (PCR) SARS-CoV-2 IgG Ab 02/25/20 02/25/20 02/25/20 14:21 14:21 14:21 WBC RBC MCHC Lymph % (Auto) Lymph # (Auto) Seg Neutrophils % Seg Neuts % (Manual) Lymphocytes % (Manual) Seg Neutrophils # Seg Neutrophils # Man Lymphocytes # (Manual) Monocytes # (Manual) D-Dimer 396.96 H ABG pH POC ABG pO2 ABG pO2 ABG O2 Saturation ABG Glucose Oxyhemoglobin Carboxyhemoglobin Sodium Potassium Chloride BUN Creatinine Glucose 163 H POC Glucose Ferritin 335.1 H AST ALT Alkaline Phosphatase Lactate Dehydrogenase 406 H C-Reactive Protein 6.10 H Total Protein Albumin Lipase Arterial Blood Glucose Coronavirus (PCR) SARS-CoV-2 IgG Ab 02/25/20 02/25/20 02/26/20 16:17 22:45 07:55 WBC RBC MCHC Lymph % (Auto) Lymph # (Auto) Seg Neutrophils % Seg Neuts % (Manual) Lymphocytes % (Manual) Seg Neutrophils # Seg Neutrophils # Man Lymphocytes # (Manual) Monocytes # (Manual) D-Dimer ABG pH POC ABG pO2 ABG pO2 ABG O2 Saturation ABG Glucose Oxyhemoglobin Carboxyhemoglobin Sodium Potassium Chloride BUN Creatinine Glucose POC Glucose 124 H 154 H 124 H Ferritin AST ALT Alkaline Phosphatase Lactate Dehydrogenase C-Reactive Protein Total Protein Albumin Lipase Arterial Blood Glucose Coronavirus (PCR) SARS-CoV-2 IgG Ab 12/03/0502/26/20 02/26/20 10:45 12:10 16:51 WBC RBC MCHC Lymph % (Auto) Lymph # (Auto) Seg Neutrophils % Seg Neuts % (Manual) Lymphocytes % (Manual) Seg Neutrophils # Seg Neutrophils # Man Lymphocytes # (Manual) Monocytes # (Manual) D-Dimer ABG pH POC ABG pO2 ABG pO2 ABG O2 Saturation ABG Glucose Oxyhemoglobin Carboxyhemoglobin Sodium Potassium Chloride BUN Creatinine Glucose POC Glucose 121 H 129 H Ferritin AST ALT Alkaline Phosphatase Lactate Dehydrogenase C-Reactive Protein Total Protein Albumin Lipase Arterial Blood Glucose Coronavirus (PCR) Positive A SARS-CoV-2 IgG Ab 02/26/20 02/27/20 02/27/20 22:00 07:58 12:04 WBC RBC MCHC Lymph % (Auto) Lymph # (Auto) Seg Neutrophils % Seg Neuts % (Manual) Lymphocytes % (Manual) Seg Neutrophils # Seg Neutrophils # Man Lymphocytes # (Manual) Monocytes # (Manual) D-Dimer ABG pH POC ABG pO2 ABG pO2 ABG O2 Saturation ABG Glucose Oxyhemoglobin Carboxyhemoglobin Sodium Potassium Chloride BUN Creatinine Glucose POC Glucose 134 H 115 H 146 H Ferritin AST ALT Alkaline Phosphatase Lactate Dehydrogenase C-Reactive Protein Total Protein Albumin Lipase Arterial Blood Glucose Coronavirus (PCR) SARS-CoV-2 IgG Ab 02/27/20 02/28/20 02/28/20 17:21 16:03 16:03 WBC RBC MCHC Lymph % (Auto) Lymph # (Auto) Seg Neutrophils % Seg Neuts % (Manual) Lymphocytes % (Manual) Seg Neutrophils # Seg Neutrophils # Man Lymphocytes # (Manual) Monocytes # (Manual) D-Dimer 995.51 H ABG pH POC ABG pO2 ABG pO2 ABG O2 Saturation ABG Glucose Oxyhemoglobin Carboxyhemoglobin Sodium Potassium Chloride BUN Creatinine Glucose POC Glucose 136 H Ferritin 464.3 H AST ALT Alkaline Phosphatase Lactate Dehydrogenase C-Reactive Protein Total Protein Albumin Lipase Arterial Blood Glucose Coronavirus (PCR) SARS-CoV-2 IgG Ab 02/28/20 02/28/20 02/28/20 16:03 16:03 16:03 WBC RBC MCHC Lymph % (Auto) Lymph # (Auto) Seg Neutrophils % Seg Neuts % (Manual) Lymphocytes % (Manual) Seg Neutrophils # Seg Neutrophils # Man Lymphocytes # (Manual) Monocytes # (Manual) D-Dimer ABG pH POC ABG pO2 ABG pO2 ABG O2 Saturation ABG Glucose Oxyhemoglobin Carboxyhemoglobin Sodium Potassium Chloride BUN 23 H Creatinine 0.4 L Glucose 120 H POC Glucose Ferritin AST 72 H ALT 117 H Alkaline Phosphatase 137 H Lactate Dehydrogenase 779 H C-Reactive Protein 6.10 H Total Protein Albumin 3.0 L Lipase Arterial Blood Glucose Coronavirus (PCR) SARS-CoV-2 IgG Ab Reactive A 02/28/20 02/29/20 02/29/20 22:06 07:38 11:11 WBC RBC MCHC Lymph % (Auto) Lymph # (Auto) Seg Neutrophils % Seg Neuts % (Manual) Lymphocytes % (Manual) Seg Neutrophils # Seg Neutrophils # Man Lymphocytes # (Manual) Monocytes # (Manual) D-Dimer ABG pH POC ABG pO2 ABG pO2 ABG O2 Saturation ABG Glucose Oxyhemoglobin Carboxyhemoglobin Sodium Potassium Chloride BUN Creatinine Glucose POC Glucose 119 H 121 H 129 H Ferritin AST ALT Alkaline Phosphatase Lactate Dehydrogenase C-Reactive Protein Total Protein Albumin Lipase Arterial Blood Glucose Coronavirus (PCR) SARS-CoV-2 IgG Ab 02/29/20 02/29/20 03/01/20 15:58 22:02 05:23 WBC RBC MCHC Lymph % (Auto) Lymph # (Auto) Seg Neutrophils % Seg Neuts % (Manual) Lymphocytes % (Manual) Seg Neutrophils # Seg Neutrophils # Man Lymphocytes # (Manual) Monocytes # (Manual) D-Dimer 1841.84 H ABG pH POC ABG pO2 ABG pO2 ABG O2 Saturation ABG Glucose Oxyhemoglobin Carboxyhemoglobin Sodium Potassium Chloride BUN Creatinine Glucose POC Glucose 118 H 141 H Ferritin AST ALT Alkaline Phosphatase Lactate Dehydrogenase C-Reactive Protein Total Protein Albumin Lipase Arterial Blood Glucose Coronavirus (PCR) SARS-CoV-2 IgG Ab 03/01/20 03/01/20 03/01/20 05:23 05:23 05:23 WBC 17.6 H RBC MCHC Lymph % (Auto) Lymph # (Auto) Seg Neutrophils % Seg Neuts % (Manual) 96.0 H Lymphocytes % (Manual) 2.0 L Seg Neutrophils # Seg Neutrophils # Man 16.9 H Lymphocytes # (Manual) 0.4 L Monocytes # (Manual) D-Dimer ABG pH POC ABG pO2 ABG pO2 ABG O2 Saturation ABG Glucose Oxyhemoglobin Carboxyhemoglobin Sodium Potassium Chloride BUN 19 H Creatinine 0.3 L Glucose 145 H POC Glucose Ferritin 323.9 H AST ALT 63 H Alkaline Phosphatase 132 H Lactate Dehydrogenase 746 H C-Reactive Protein 6.80 H Total Protein Albumin 2.9 L Lipase Arterial Blood Glucose Coronavirus (PCR) SARS-CoV-2 IgG Ab 03/01/20 03/01/20 03/01/20 06:30 08:53 11:07 WBC RBC MCHC Lymph % (Auto) Lymph # (Auto) Seg Neutrophils % Seg Neuts % (Manual) Lymphocytes % (Manual) Seg Neutrophils # Seg Neutrophils # Man Lymphocytes # (Manual) Monocytes # (Manual) D-Dimer ABG pH 7.463 H POC ABG pO2 71.9 L ABG pO2 ABG O2 Saturation ABG Glucose 147 H Oxyhemoglobin Carboxyhemoglobin 0.2 L Sodium Potassium Chloride BUN Creatinine Glucose POC Glucose 132 H 126 H Ferritin AST ALT Alkaline Phosphatase Lactate Dehydrogenase C-Reactive Protein Total Protein Albumin Lipase Arterial Blood Glucose 147 H Coronavirus (PCR) SARS-CoV-2 IgG Ab 03/01/20 03/01/20 03/02/20 15:50 21:24 08:08 WBC RBC MCHC Lymph % (Auto) Lymph # (Auto) Seg Neutrophils % Seg Neuts % (Manual) Lymphocytes % (Manual) Seg Neutrophils # Seg Neutrophils # Man Lymphocytes # (Manual) Monocytes # (Manual) D-Dimer ABG pH POC ABG pO2 ABG pO2 ABG O2 Saturation ABG Glucose Oxyhemoglobin Carboxyhemoglobin Sodium Potassium Chloride BUN Creatinine Glucose POC Glucose 122 H 142 H 152 H Ferritin AST ALT Alkaline Phosphatase Lactate Dehydrogenase C-Reactive Protein Total Protein Albumin Lipase Arterial Blood Glucose Coronavirus (PCR) SARS-CoV-2 IgG Ab 03/02/20 03/02/20 03/02/20 11:41 16:51 21:56 WBC RBC MCHC Lymph % (Auto) Lymph # (Auto) Seg Neutrophils % Seg Neuts % (Manual) Lymphocytes % (Manual) Seg Neutrophils # Seg Neutrophils # Man Lymphocytes # (Manual) Monocytes # (Manual) D-Dimer ABG pH POC ABG pO2 ABG pO2 ABG O2 Saturation ABG Glucose Oxyhemoglobin Carboxyhemoglobin Sodium Potassium Chloride BUN Creatinine Glucose POC Glucose 136 H 137 H 126 H Ferritin AST ALT Alkaline Phosphatase Lactate Dehydrogenase C-Reactive Protein Total Protein Albumin Lipase Arterial Blood Glucose Coronavirus (PCR) SARS-CoV-2 IgG Ab 03/03/20 03/03/20 03/03/20 08:05 13:10 19:32 WBC RBC MCHC Lymph % (Auto) Lymph # (Auto) Seg Neutrophils % Seg Neuts % (Manual) Lymphocytes % (Manual) Seg Neutrophils # Seg Neutrophils # Man Lymphocytes # (Manual) Monocytes # (Manual) D-Dimer ABG pH POC ABG pO2 ABG pO2 ABG O2 Saturation ABG Glucose Oxyhemoglobin Carboxyhemoglobin Sodium Potassium Chloride BUN 27 H Creatinine 0.5 L D Glucose 200 H POC Glucose 147 H 114 H Ferritin AST ALT Alkaline Phosphatase Lactate Dehydrogenase C-Reactive Protein Total Protein Albumin 3.1 L Lipase Arterial Blood Glucose Coronavirus (PCR) SARS-CoV-2 IgG Ab 03/03/20 03/03/20 03/03/20 19:32 19:39 22:44 WBC 20.3 H RBC MCHC Lymph % (Auto) Lymph # (Auto) Seg Neutrophils % Seg Neuts % (Manual) 90.0 H Lymphocytes % (Manual) 4.0 L Seg Neutrophils # Seg Neutrophils # Man 18.3 H Lymphocytes # (Manual) 0.8 L Monocytes # (Manual) 1.2 H D-Dimer ABG pH POC ABG pO2 ABG pO2 ABG O2 Saturation ABG Glucose Oxyhemoglobin Carboxyhemoglobin Sodium Potassium Chloride BUN Creatinine Glucose POC Glucose 186 H 159 H Ferritin AST ALT Alkaline Phosphatase Lactate Dehydrogenase C-Reactive Protein Total Protein Albumin Lipase Arterial Blood Glucose Coronavirus (PCR) SARS-CoV-2 IgG Ab 03/04/20 03/04/20 03/04/20 06:06 06:06 07:52 WBC 17.2 H RBC MCHC Lymph % (Auto) Lymph # (Auto) Seg Neutrophils % Seg Neuts % (Manual) 88.0 H Lymphocytes % (Manual) 5.0 L Seg Neutrophils # 15.3 H Seg Neutrophils # Man 15.1 H Lymphocytes # (Manual) 0.9 L Monocytes # (Manual) D-Dimer ABG pH POC ABG pO2 ABG pO2 ABG O2 Saturation ABG Glucose Oxyhemoglobin Carboxyhemoglobin Sodium Potassium Chloride BUN 31 H Creatinine 0.4 L Glucose 144 H POC Glucose 131 H Ferritin AST ALT Alkaline Phosphatase Lactate Dehydrogenase C-Reactive Protein Total Protein Albumin 3.0 L Lipase Arterial Blood Glucose Coronavirus (PCR) SARS-CoV-2 IgG Ab 03/04/20 03/04/20 03/04/20 11:30 11:40 16:21 WBC RBC MCHC Lymph % (Auto) Lymph # (Auto) Seg Neutrophils % Seg Neuts % (Manual) Lymphocytes % (Manual) Seg Neutrophils # Seg Neutrophils # Man Lymphocytes # (Manual) Monocytes # (Manual) D-Dimer ABG pH 7.489 H POC ABG pO2 ABG pO2 54.6 L ABG O2 Saturation 90.4 L ABG Glucose Oxyhemoglobin 89.1 L Carboxyhemoglobin Sodium Potassium Chloride BUN Creatinine Glucose POC Glucose 121 H 155 H Ferritin AST ALT Alkaline Phosphatase Lactate Dehydrogenase C-Reactive Protein Total Protein Albumin Lipase Arterial Blood Glucose Coronavirus (PCR) SARS-CoV-2 IgG Ab 03/05/20 03/05/20 03/05/20 12:01 16:48 16:48 WBC RBC MCHC Lymph % (Auto) Lymph # (Auto) Seg Neutrophils % Seg Neuts % (Manual) Lymphocytes % (Manual) Seg Neutrophils # Seg Neutrophils # Man Lymphocytes # (Manual) Monocytes # (Manual) D-Dimer 1170.89 H ABG pH POC ABG pO2 ABG pO2 ABG O2 Saturation ABG Glucose Oxyhemoglobin Carboxyhemoglobin Sodium Potassium Chloride BUN Creatinine Glucose POC Glucose 116 H Ferritin 348.4 H AST ALT Alkaline Phosphatase Lactate Dehydrogenase C-Reactive Protein Total Protein Albumin Lipase Arterial Blood Glucose Coronavirus (PCR) SARS-CoV-2 IgG Ab 03/05/20 03/05/20 03/06/20 16:48 17:40 09:40 WBC RBC MCHC Lymph % (Auto) Lymph # (Auto) Seg Neutrophils % Seg Neuts % (Manual) Lymphocytes % (Manual) Seg Neutrophils # Seg Neutrophils # Man Lymphocytes # (Manual) Monocytes # (Manual) D-Dimer ABG pH POC ABG pO2 ABG pO2 77.4 L ABG O2 Saturation ABG Glucose Oxyhemoglobin 94.5 L Carboxyhemoglobin Sodium Potassium Chloride BUN Creatinine Glucose POC Glucose 233 H Ferritin AST ALT Alkaline Phosphatase Lactate Dehydrogenase 619 H C-Reactive Protein 3.50 H Total Protein Albumin Lipase Arterial Blood Glucose Coronavirus (PCR) SARS-CoV-2 IgG Ab 03/06/20 03/06/20 03/07/20 11:52 17:05 04:22 WBC 16.6 H RBC MCHC Lymph % (Auto) 7.9 L Lymph # (Auto) Seg Neutrophils % 87.5 H Seg Neuts % (Manual) Lymphocytes % (Manual) Seg Neutrophils # 14.5 H Seg Neutrophils # Man Lymphocytes # (Manual) Monocytes # (Manual) D-Dimer ABG pH POC ABG pO2 ABG pO2 ABG O2 Saturation ABG Glucose Oxyhemoglobin Carboxyhemoglobin Sodium Potassium Chloride BUN Creatinine Glucose POC Glucose 168 H 163 H Ferritin AST ALT Alkaline Phosphatase Lactate Dehydrogenase C-Reactive Protein Total Protein Albumin Lipase Arterial Blood Glucose Coronavirus (PCR) SARS-CoV-2 IgG Ab 03/07/20 03/07/20 03/07/20 04:22 11:27 16:55 WBC RBC MCHC Lymph % (Auto) Lymph # (Auto) Seg Neutrophils % Seg Neuts % (Manual) Lymphocytes % (Manual) Seg Neutrophils # Seg Neutrophils # Man Lymphocytes # (Manual) Monocytes # (Manual) D-Dimer ABG pH POC ABG pO2 ABG pO2 ABG O2 Saturation ABG Glucose Oxyhemoglobin Carboxyhemoglobin Sodium 134 L Potassium Chloride BUN 27 H Creatinine 0.4 L Glucose 109 H POC Glucose 108 H 140 H Ferritin AST ALT Alkaline Phosphatase Lactate Dehydrogenase C-Reactive Protein Total Protein 6.1 L Albumin 3.1 L Lipase Arterial Blood Glucose Coronavirus (PCR) SARS-CoV-2 IgG Ab 03/08/20 03/08/20 03/09/20 17:17 18:37 12:10 WBC RBC MCHC Lymph % (Auto) Lymph # (Auto) Seg Neutrophils % Seg Neuts % (Manual) Lymphocytes % (Manual) Seg Neutrophils # Seg Neutrophils # Man Lymphocytes # (Manual) Monocytes # (Manual) D-Dimer ABG pH POC ABG pO2 ABG pO2 ABG O2 Saturation ABG Glucose Oxyhemoglobin Carboxyhemoglobin Sodium Potassium Chloride BUN Creatinine Glucose POC Glucose 145 H 231 H 115 H Ferritin AST ALT Alkaline Phosphatase Lactate Dehydrogenase C-Reactive Protein Total Protein Albumin Lipase Arterial Blood Glucose Coronavirus (PCR) SARS-CoV-2 IgG Ab 03/10/20 03/10/20 03/12/20 11:23 15:34 10:19 WBC RBC MCHC Lymph % (Auto) Lymph # (Auto) Seg Neutrophils % Seg Neuts % (Manual) Lymphocytes % (Manual) Seg Neutrophils # Seg Neutrophils # Man Lymphocytes # (Manual) Monocytes # (Manual) D-Dimer ABG pH POC ABG pO2 ABG pO2 ABG O2 Saturation ABG Glucose Oxyhemoglobin Carboxyhemoglobin Sodium Potassium Chloride BUN Creatinine Glucose POC Glucose 125 H Ferritin 319.4 H AST ALT Alkaline Phosphatase Lactate Dehydrogenase C-Reactive Protein Total Protein 5.9 L Albumin 3.0 L Lipase 86 H Arterial Blood Glucose Coronavirus (PCR) SARS-CoV-2 IgG Ab 03/13/20 03/13/20 03/14/20 07:23 07:23 04:40 WBC 12.2 H RBC MCHC Lymph % (Auto) Lymph # (Auto) Seg Neutrophils % Seg Neuts % (Manual) Lymphocytes % (Manual) Seg Neutrophils # Seg Neutrophils # Man Lymphocytes # (Manual) Monocytes # (Manual) D-Dimer ABG pH POC ABG pO2 ABG pO2 ABG O2 Saturation ABG Glucose Oxyhemoglobin Carboxyhemoglobin Sodium 136 L Potassium Chloride BUN 20 H Creatinine 0.5 L Glucose POC Glucose Ferritin AST ALT Alkaline Phosphatase Lactate Dehydrogenase C-Reactive Protein Total Protein 6.1 L Albumin 3.1 L Lipase 68 H Arterial Blood Glucose Coronavirus (PCR) SARS-CoV-2 IgG Ab Allied health notes reviewed: nursing
[2020-03-17] MEDS: HYDROcodone/HOMATROPINE 5-1.5MG /5 ML ORAL LIQD UNIT DOSE PO PRN (17:00)
--- NOTE | 2020-03-17 19:01 | Progress Note ---
Assessment and Plan Assessment and plan: --Worsening patchy bilateral opacities: on follow-up x-ray on 03/14/2020/yesterday We will hold off discharge and closely monitor next 24 hours Patient's ambulatory O2 sats dropped to 82% per nurse Continue current management Possible discharge in 1 to 2 days if stable -- Acute hypoxemic respiratory failure Current Visit: Yes Status: Acute Plan to address problem: Patient on 40 L high flow oxygen Worsening clinical picture Slightly improved on nasal cannula oxygen -- Covid pneumonia Current Visit: Yes Status: Acute Plan to address problem: Patient is coronavirus PCR positive on 02/26/2020 Patient is also SARS-CoV-2 IgG positive Patient is not a candidate for Covid convalescent plasma Steroids, remdesivir for total 5 days Continue anticoagulation Prone positioning as possible High flow oxygen Wean to nasal cannula oxygen Home O2 evaluation -- Pneumonia Current Visit: Yes Status: Acute Plan to address problem: Follow-up chest x-ray worsening bilateral infiltrates Continue oxygen and supportive care -- severe sepsis Remains hypoxic likely due to bilateral pneumonia Continue IV antibiotics --Abdominal Pain; acute gastritis supportive care, abdominal ultrasound, possible GI consult if no improvement --DVT prophylaxis Current Visit: Yes Status: Acute Plan to address problem: High-dose Lovenox Monitor closely and adjust the management as needed Plan of care reviewed with the patient and her nurse as well as the case management Consults and recommendations noted and appreciated Evaluate for home oxygen Possible discharge home tomorrow if stable and if oxygen concentrator is available Consults and recommendations noted and appreciated DC planning per case management 50 YO Female with Obesity Hypoventilation Syndrome presents to ED for evaluation. Patient states that she has "been feeling sick" for the past 2 weeks with persistent symptoms over the same timeframe. Patient was seen and evaluated by her primary care physician and treated with oral antibiotics for outpatient pneumonia. Patient states that she has experienced persistent symptoms in spite of of compliance with medication. Patient reports fever, dry cough, shortness of breath, decreased exercise tolerance, nausea, multiple episodes of vomiting, multiple loose stools, loss of sense of smell, loss of sense of taste, fatigue, malaise, body aches. Patient transported to [facility] via private vehicle for further care and evaluation of the aforementioned symptoms. Patient seen and evaluated in the emergency department. All lab and imaging studies reviewed. Patient found to have a fever to 102.1 F, as well as a pulse oximetry of 88% with exertion on room air which is consistent with acute hypoxemic respiratory failure. Patient underwent chest x-ray which revealed bilateral pneumonia. Patient admitted to medical floor and initiated on pneumonia protocol as well as coronavirus protocol. Coronavirus PCR ordered in the emergency department and is pending at time of admission. Patient acknowledges fever, but denies chest pain, palpitation, skin rash, recent ill contacts, trauma, or known exposure to COVID-19. No medication listed at time of admission. No prior admission for review. 02/29/2020 Patient alert, awake. Having cough. Having mild shortness of breath at rest. Patient is on vapotherm, FIO2 100% and O2 saturation 90%. Patient switched to BIPAP. But patient not using it.Patient afebrile. No leukocytosis. Complaining headache at times.Patients [place] virus PCR is Positive. Patients chest xray done 02/24/20 reported Patchy bilateral pulmonary opacities are concerning for infection/pneumonia. 03/01/2020 03/01/2020 Patient on high flow oxygen and BiPAP 03/02/2020 Patient still on high flow oxygen and BiPAP 03/03/2020 Patient with worsening inflammatory markers Chest x-ray worsening with extensive consolidations Patient will be transferred to ICU 03/04/2020 Patient on high flow oxygen-40 L Worsening pulmonary alveolar infiltrates Possible intubation !05/07/19 On High flow oxygen 03/07/2020 Patient still on high flow oxygen Not intubated 03/08- on HFNC 03/10: Clinically showing some improvement as HFNC is improving. Continue weaning as tolerated 03/11: Continue supportive care, weaning oxygen as tolerated. Can transfer to 3rd floor if weaned off HFNC. 03/12: Patient respiratory meier continues to improve, did have some abdominal pain with FOOD, Will check LFT, ammonia, and Lipase and abdominal ultrasound, considering patient is 35% FIO2, will transfer to [facility]. 03/14; patient feels slightly better abdominal pain significantly improved Patient was on high flow oxygen for few days, currently on 4 L nasal cannula oxygen Wean and titrate to O2 sats more than 90% Check resting and ambulatory room air O2 sats, Case management for possible home health Possible discharge in 1 to 2 days if stable and if cleared by pulmonary 03/15: Initially was planning to discharge home on nasal cannula oxygen However patient's repeat x-ray l yesterday t showed worsening infiltrates, worsening shortness of breath We will closely monitor next 24 hours, and DC home if stable Resting O2 90%, ambulatory room air O2 83%, on 2 L of nasal cannula oxygen improved to 95% Recommended home oxygen, patient uninsured no resources, patient's family willing to pay for for the oxygen Patient will be discharged tomorrow if stable 03/17/2020; patient feels slightly better still hypoxic, oxygen is available fermin jose antonio there is shortage of O2 concentrator Will check with case management about discharge plan, possible discharge home tomorrow if O2 concentrator and oxygen are set up History Interval history: I have seen and examined the patient at the bedside Patient's chart and medications reviewed. Patient feels slightly better however still hypoxic requiring oxygen Patient was set up with home oxygen however oxygen concentrator service not available per case management Hence unable to discharge the patient, Vital signs noted Hospitalist Physical - Constitutional Vitals: Temp Pulse Resp BP Pulse Ox 97.8 F 88 24 83/40 97 03/17/20 12:13 03/17/20 12:13 03/17/20 12:13 03/17/20 12:13 03/17/20 12:13 General appearance: Present: mild distress, well-nourished, obese - EENT Eyes: Present: PERRL, EOM intact - Neck Neck: Present: supple, normal ROM - Respiratory Respiratory effort: normal Respiratory: bilateral: diminished, negative: rales, rhonchi, wheezing - Cardiovascular Rhythm: regular Heart Sounds: Present: S1 & S2 - Extremities Extremities: no ischemia, No edema - Abdominal General gastrointestinal: soft, non-tender, non-distended, normal bowel sounds - Integumentary Integumentary: Present: clear, warm - Psychiatric Psychiatric: appropriate mood/affect - Neurologic Neurologic: CNII-XII intact, moves all extremities HEART Score - HEART Score Troponin: Troponin T < 0.010 ng/mL (0.00-0.029) 02/28/20 16:03 Results - Labs CBC & Chem 7: 03/13/20 07:23 03/13/20 07:23 Labs: Laboratory Last Values WBC 12.2 K/mm3 (4.5-11.0) H 03/13/20 07:23 RBC 4.00 M/mm3 (3.65-5.03) 03/13/20 07:23 Hgb 12.0 gm/dl (10.1-14.3) 03/13/20 07:23 Hct 36.2 % (30.3-42.9) 03/13/20 07:23 MCV 90 fl (79-97) 03/13/20 07:23 MCH 30 pg (28-32) 03/13/20 07:23 MCHC 33 % (30-34) 03/13/20 07:23 RDW 13.8 % (13.2-15.2) 03/13/20 07:23 Plt Count 215 K/mm3 (140-440) 03/13/20 07:23 Lymph % (Auto) 7.9 % (13.4-35.0) L 03/07/20 04:22 Luce % (Auto) 3.5 % (0.0-7.3) 03/07/20 04:22 Eos % (Auto) 0.9 % (0.0-4.3) 03/07/20 04:22 Baso % (Auto) 0.2 % (0.0-1.8) 03/07/20 04:22 Lymph # (Auto) 1.3 K/mm3 (1.2-5.4) 03/07/20 04:22 Luce # (Auto) 0.6 K/mm3 (0.0-0.8) 03/07/20 04:22 Eos # (Auto) 0.2 K/mm3 (0.0-0.4) 03/07/20 04:22 Baso # (Auto) 0.0 K/mm3 (0.0-0.1) 03/07/20 04:22 Add Manual Diff Complete 03/04/20 06:06 Total Counted 100 03/04/20 06:06 Seg Neutrophils % 87.5 % (40.0-70.0) H 03/07/20 04:22 Seg Neuts % (Manual) 88.0 % (40.0-70.0) H 03/04/20 06:06 Lymphocytes % (Manual) 5.0 % (13.4-35.0) L 03/04/20 06:06 Reactive Lymphs % (Man) 1.0 % 03/04/20 06:06 Monocytes % (Manual) 4.0 % (0.0-7.3) 03/04/20 06:06 Eosinophils % (Manual) 1.0 % (0.0-4.3) 03/04/20 06:06 Metamyelocytes % 1.0 % 03/04/20 06:06 Nucleated RBC % Not Reportable 03/04/20 06:06 Seg Neutrophils # 14.5 K/mm3 (1.8-7.7) H 03/07/20 04:22 Seg Neutrophils # Man 15.1 K/mm3 (1.8-7.7) H 03/04/20 06:06 Band Neutrophils # 0.0 K/mm3 03/04/20 06:06 Lymphocytes # (Manual) 0.9 K/mm3 (1.2-5.4) L 03/04/20 06:06 Abs React Lymphs (Man) 0.2 K/mm3 03/04/20 06:06 Monocytes # (Manual) 0.7 K/mm3 (0.0-0.8) 03/04/20 06:06 Eosinophils # (Manual) 0.2 K/mm3 (0.0-0.4) 03/04/20 06:06 Basophils # (Manual) 0.0 K/mm3 (0.0-0.1) 03/04/20 06:06 Metamyelocytes # 0.2 K/mm3 03/04/20 06:06 Myelocytes # 0.0 K/mm3 03/04/20 06:06 Promyelocytes # 0.0 K/mm3 03/04/20 06:06 Blast Cells # 0.0 K/mm3 03/04/20 06:06 WBC Morphology Not Reportable 03/04/20 06:06 Hypersegmented Neuts Not Reportable 03/04/20 06:06 Hyposegmented Neuts Not Reportable 03/04/20 06:06 Hypogranular Neuts Not Reportable 03/04/20 06:06 Smudge Cells Not Reportable 03/04/20 06:06 Toxic Granulation Not Reportable 03/04/20 06:06 Toxic Vacuolation Not Reportable 03/04/20 06:06 Dohle Bodies Not Reportable 03/04/20 06:06 Pelger-Huet Anomaly Not Reportable 03/04/20 06:06 Mian Rods Not Reportable 03/04/20 06:06 Platelet Estimate Consistent w auto 03/04/20 06:06 Clumped Platelets Not Reportable 03/04/20 06:06 Plt Clumps, EDTA Not Reportable 03/04/20 06:06 Large Platelets Not Reportable 03/04/20 06:06 Giant Platelets Not Reportable 03/04/20 06:06 Platelet Satelliting Not Reportable 03/04/20 06:06 Plt Morphology Comment Not Reportable 03/04/20 06:06 RBC Morphology Normal 03/04/20 06:06 Dimorphic RBCs Not Reportable 03/04/20 06:06 Polychromasia Not Reportable 03/04/20 06:06 Hypochromasia Not Reportable 03/04/20 06:06 Poikilocytosis Not Reportable 03/04/20 06:06 Anisocytosis Not Reportable 03/04/20 06:06 Microcytosis Not Reportable 03/04/20 06:06 Macrocytosis Not Reportable 03/04/20 06:06 Spherocytes Not Reportable 03/04/20 06:06 Pappenheimer Bodies Not Reportable 03/04/20 06:06 Sickle Cells Not Reportable 03/04/20 06:06 Target Cells Not Reportable 03/04/20 06:06 Tear Drop Cells Not Reportable 03/04/20 06:06 Ovalocytes Not Reportable 03/04/20 06:06 Helmet Cells Not Reportable 03/04/20 06:06 [place] Bodies Not Reportable 03/04/20 06:06 Bryan Rings Not Reportable 03/04/20 06:06 [place] Cells Not Reportable 03/04/20 06:06 Bite Cells Not Reportable 03/04/20 06:06 Crenated Cell Not Reportable 03/04/20 06:06 Elliptocytes Not Reportable 03/04/20 06:06 Acanthocytes (Spur) Not Reportable 03/04/20 06:06 Rouleaux Not Reportable 03/04/20 06:06 Hemoglobin C Crystals Not Reportable 03/04/20 06:06 Schistocytes Not Reportable 03/04/20 06:06 Malaria parasites Not Reportable 03/04/20 06:06 Jesus Bodies Not Reportable 03/04/20 06:06 Hem Pathologist Commnt No 03/04/20 06:06 D-Dimer 1170.89 ng/mlDDU (0-234) H 03/05/20 16:48 ABG pH 7.439 pH Units (7.350-7.450) 03/06/20 09:40 POC ABG pCO2 40.0 mmHg (32.0-48.0) 03/01/20 08:53 ABG pCO2 36.8 mm Hg 03/06/20 09:40 POC ABG pO2 71.9 mmHg (83-108) L 03/01/20 08:53 ABG pO2 77.4 mm Hg (80.0-90.0) L 03/06/20 09:40 POC ABG HCO3 28.0 03/01/20 08:53 ABG HCO3 24.4 mmol/L (20.0-26.0) 03/06/20 09:40 ABG O2 Saturation 96.0 % (95.0-99.0) 03/06/20 09:40 ABG O2 Content 18.4 (0.0-44) 03/06/20 09:40 POC ABG Base Excess 4.0 03/01/20 08:53 ABG Base Excess 0.5 mmol/L (-2.0-3.0) 03/06/20 09:40 ABG Hemoglobin 13.8 gm/dl (12.0-16.0) 03/06/20 09:40 ABG Oxyhemoglobin 94.1 (94-98) 03/01/20 08:53 ABG Carboxyhemoglobin 1.1 % (0.0-5.0) 03/06/20 09:40 ABG Methemoglobin 0.4 % (0.0-1.5) 03/06/20 09:40 ABG Sodium 139.8 mmol/L (136.0-145.0) 03/01/20 08:53 ABG Potassium 3.9 mmol/L (3.40-4.50) 03/01/20 08:53 ABG Chloride 105.0 mmol/L (98-107) 03/01/20 08:53 ABG Glucose 147 mg/dL (65-95) H 03/01/20 08:53 Oxyhemoglobin 94.5 % (95.0-99.0) L 03/06/20 09:40 Carboxyhemoglobin 0.2 (0.5-1.5) L 03/01/20 08:53 FiO2 100 % 03/06/20 09:40 Sodium 136 mmol/L (137-145) L 03/13/20 07:23 Potassium 3.6 mmol/L (3.6-5.0) 03/13/20 07:23 Chloride 101.3 mmol/L (98-107) 03/13/20 07:23 Carbon Dioxide 27 mmol/L (22-30) 03/13/20 07:23 Anion Gap 11 mmol/L 03/13/20 07:23 BUN 20 mg/dL (7-17) H 03/13/20 07:23 Creatinine 0.5 mg/dL (0.6-1.2) L 03/13/20 07:23 Estimated GFR > 60 ml/min 03/13/20 07:23 BUN/Creatinine Ratio 40 % 03/13/20 07:23 Glucose 88 mg/dL (65-100) 03/13/20 07:23 POC Glucose 87 mg/dL (70-105) 03/17/20 17:42 Lactic Acid 1.00 mmol/L (0.7-2.0) 02/24/20 14:31 Calcium 8.9 mg/dL (8.4-10.2) 03/13/20 07:23 Ferritin 319.4 ng/mL (10.0-200.0) H 03/10/20 15:34 Total Bilirubin 0.20 mg/dL (0.1-1.2) 03/13/20 07:23 Direct Bilirubin < 0.2 mg/dL (0-0.2) 03/12/20 10:19 Indirect Bilirubin 0.0 mg/dL 03/12/20 10:19 AST 23 units/L (5-40) 03/13/20 07:23 ALT 51 units/L (7-56) 03/13/20 07:23 Alkaline Phosphatase 66 units/L (35-129) 03/13/20 07:23 Lactate Dehydrogenase 619 units/L (91-180) H 03/05/20 16:48 Troponin T < 0.010 ng/mL (0.00-0.029) 02/28/20 16:03 C-Reactive Protein 0.30 mg/dL (0.00-1.30) 03/10/20 15:34 NT-Pro-B Natriuret Pep 47.67 pg/mL (0-450) 03/02/20 16:51 Total Protein 6.1 g/dL (6.3-8.2) L 03/13/20 07:23 Albumin 3.1 g/dL (3.9-5) L 03/13/20 07:23 Albumin/Globulin Ratio 1.0 % 03/13/20 07:23 Lipase 68 units/L (13-60) H 03/14/20 04:40 Procalcitonin < 0.05 ng/mL (<0.15) 02/25/20 14:21 Arterial Blood Glucose 147 mg/dL (65-95) H 03/01/20 08:53 Arterial Blood Ionized Calcium 4.7 mg/dL (4.6-5.3) 03/01/20 08:53 Urine Color Yellow (Yellow) 02/24/20 Unknown Urine Turbidity Clear (Clear) 02/24/20 Unknown Urine pH 6.0 (5.0-7.0) 02/24/20 Unknown Ur Specific [place] 1.023 (1.003-1.030) 02/24/20 Unknown Urine Protein 100 mg/dl mg/dL (Negative) 02/24/20 Unknown Urine Glucose (UA) Neg mg/dL (Negative) 02/24/20 Unknown Urine Ketones Neg mg/dL (Negative) 02/24/20 Unknown Urine Blood Neg (Negative) 02/24/20 Unknown Urine Nitrite Neg (Negative) 02/24/20 Unknown Urine Bilirubin Neg (Negative) 02/24/20 Unknown Urine Urobilinogen 2.0 mg/dL (<2.0) 02/24/20 Unknown Ur Leukocyte Esterase Neg (Negative) 02/24/20 Unknown Urine WBC (Auto) 4.0 /HPF (0.0-6.0) 02/24/20 Unknown Urine RBC (Auto) 2.0 /HPF (0.0-6.0) 02/24/20 Unknown U Epithel Cells (Auto) 3.0 /HPF (0-13.0) 02/24/20 Unknown Urine Bacteria (Auto) 1+ /HPF (Negative) 02/24/20 Unknown Urine Mucus 1+ /HPF 02/24/20 Unknown Coronavirus (PCR) Positive (Negative) A 02/26/20 10:45 SARS-CoV-2 IgG Ab Reactive (NonReactive) A 02/28/20 16:03 - Diagnostic Impressions Diagnostic Impressions: Echocardiogram 03/01/20 09:12 Transthoracic Echocardiogram Indication: Eval EF; PA HTN BP: 121/78 HR: 90 Conclusions *Global left ventricular systolic function is normal. *The estimated ejection fraction is 60-65%. *The right ventricular global systolic function is normal. *There is no evidence of aortic regurgitation. *There is trace of mitral regurgitation. *There is trace tricuspid regurgitation. *The right ventricular systolic pressure is calculated at 28 mmHg. *There is trace pulmonic regurgitation. Findings Left Ventricle: The left ventricular chamber size is normal. There is no left ventricular hypertrophy. Global left ventricular wall motion and contractility are within normal limits. Global left ventricular systolic function is normal. The estimated ejection fraction is 60-65%. There is an E to A reversal in the mitral valve flow pattern suggestive of diastolic dysfunction. Left Atrium: The left atrial chamber size is normal. Right Ventricle: The right ventricular cavity size is normal. The right ventricular global systolic function is normal. Right Atrium: The right atrial cavity size is normal. Aortic Valve: There is no evidence of aortic valve thickening. There is no evidence of aortic regurgitation. Mitral Valve: The mitral valve leaflets do not appear thickened. There is trace of mitral regurgitation. Tricuspid Valve: The tricuspid valve leaflets are normal. There is trace tricuspid regurgitation. The right ventricular systolic pressure is calculated at 28 mmHg. Pulmonic Valve: There is no evidence of pulmonic valve thickening. There is trace pulmonic regurgitation. Pericardium: There is no pericardial effusion. Aorta: The aorta appears normal. Venous: The inferior vena cava appears normal in size. Measurements Chambers 2D Name Value Normal Range IVSd (2D) 0.97 cm (0.6 - 1.1) LVPWd (2D) 1.05 cm (0.6 - 1.1) LVIDd (2D) 3.87 cm (3.7 - 5.6) LVIDs (2D) 2.41 cm (2 - 3.8) LV FS (2D) 37.69 % - EF Teichholz (2D) 68.47 % - Ao root diameter (2D) 2.92 cm (2 - 3.7) Volumes/Mass Name Value Normal Range LA ESV SP 4CH (A/L) 32.2 ml - LA ESV SP 2CH (A/L) 24.78 ml - LA ESV BP (A/L) 29.52 ml - LA ESV BP (A/L) index 16.68 ml/m2 - LA ESV SP 4CH (MOD) 29.62 ml - LA ESV SP 2CH (MOD) 23.68 ml - LA ESV BP (MOD) 27.57 ml - LA ESV BP (MOD) index 15.58 ml/m2 - Diastolic/Systolic Function Name Value Normal Range MV E-wave Vmax 0.59 m/sec - MV deceleration time 258.54 msec - MV A-wave Vmax 0.73 m/sec - MV E:A ratio 0.81 ratio - Aortic Valve Name Value Normal Range AV Vmax 1.33 m/sec - AV VTI 22.87 cm - AV peak gradient 7.09 mmHg - AV mean gradient 4.39 mmHg - LVOT diameter 1.52 cm - LVOT Vmax 1.22 m/sec - LVOT VTI 20.85 cm - LVOT peak gradient 5.96 mmHg - LVOT mean gradient 2.91 mmHg - SV LVOT 37.79 ml - VINEET (continuity Vmax) 1.66 cm2 - VINEET (continuity VTI) 1.65 cm2 - Ascending Ao 2.78 cm - Tricuspid Valve Name Value Normal Range TR Vmax 2.48 m/sec - TR peak gradient 25 mmHg - RAP 3 mmHg - RVSP 28 mmHg - IVC diameter 1.77 cm (1.2 - 2.3) Pulmonic Valve/Qp:Qs Name Value Normal Range PV Vmax 0.85 m/sec - PV peak gradient 2.9 mmHg - AL end-diastolic Vmax 1.26 m/sec - PV acceleration time 144.62 msec - [place]/IV: Voiding Method Toilet IV Catheter Type [Right Peripheral IV Forearm] IV Catheter Type [Right Peripheral IV Antecubital] Active Medications - Current Medications Current Medications: Generic Name Dose Route Start Last Admin Trade Name Freq PRN Reason Stop Dose Admin Acetaminophen 650 mg 02/24/20 15:14 03/16/20 20:00 Acetaminophen 325 Mg Tab PO 650 mg Q4H PRN Administration Pain MILD(1-3)/Fever >100.5/DANGELO Albuterol 2.5 mg 02/24/20 15:14 Albuterol 2.5 Mg/3 Ml Nebu IH Q4HRT PRN Shortness Of Breath Ascorbic Acid 1,000 mg 02/29/20 23:45 03/17/20 09:55 Ascorbic Acid 500 Mg Tab PO 1,000 mg BID UTE Administration Benzonatate 100 mg 02/25/20 22:00 03/17/20 09:55 Benzonatate 100 Mg Cap PO 100 mg BID UTE Administration Cholecalciferol 5,000 unit 03/01/20 10:00 03/17/20 09:55 Cholecalciferol (Vit D3) 5,000 Unit Tab PO 5,000 unit DAILY UTE Administration Enoxaparin Sodium 80 mg 02/29/20 23:45 03/17/20 09:55 Enoxaparin 80 Mg/0.8 Ml Inj SUB-Q 80 mg Q12HR UTE Administration Protocol Famotidine 10 mg 03/13/20 23:00 03/17/20 09:55 Famotidine 20 Mg Tab PO 10 mg BID UTE Administration Hydrocodone Bit/Homatropine Methylb 10 ml 02/26/20 15:00 03/17/20 17:00 Hydrocodone/Homatropine 5-1.5mg /5 Ml Oral Liqd Unit Dose PO 10 ml Q6H PRN Administration Cough Morphine Sulfate 2 mg 03/11/20 19:35 03/13/20 10:41 Morphine 2 Mg/1 Ml Inj IV 2 mg Q4H PRN Administration Pain, Moderate (4-6) Ondansetron HCl 4 mg 02/24/20 15:14 Ondansetron 4 Mg/2 Ml Inj IV Q8H PRN Nausea And Vomiting Sodium Chloride 10 ml 02/24/20 22:00 03/17/20 09:56 Sodium Chloride 0.9% 10 Ml Flush Syringe IV 10 ml BID UTE Administration Sodium Chloride 10 ml 02/24/20 15:14 Sodium Chloride 0.9% 10 Ml Flush Syringe IV PRN PRN LINE FLUSH Tramadol HCl 50 mg 02/29/20 22:10 03/17/20 14:20 Tramadol 50 Mg Tab PO 50 mg Q6H PRN Administration Pain, Moderate (4-6) Nutrition/Malnutrition Assess - Dietary Evaluation Nutrition/Malnutrition Findings: Nutrition Notes Start: 03/02/20 12:47 Freq: Status: Active Protocol: Document 03/02/20 12:47 EN (Rec: 03/02/20 12:53 EN [email or web address]) Co-Sign 03/02/20 12:47 MK Nutrition Notes Need for Assessment generated from: LOS Initial or Follow up Brief Note Current Diagnosis Sepsis Other Pertinent Diagnosis COVID-19+, Pneu, acute respiratory failure Current Diet Cardiac [place] Body Weight (kg) 0 Subjective/Other Information Pt screened for LOS. Unable to reach pt by phone x2 for assessment. RN unsure of current PO intakes for today but states pt has not had any N/V/D. Per chart, 100% meal consumption consistently Nutrition Intervention Anticipated Discharge Needs: Cardiac diet Revisit per MD consult or patient Sign Off request:
[2020-03-17] MEDS: ACETAMINOPHEN 325 MG TAB PO PRN (21:34)
[2020-03-18] MEDS: HYDROcodone/HOMATROPINE 5-1.5MG /5 ML ORAL LIQD UNIT DOSE PO PRN (04:06)
[2020-03-18] MEDS: CHOLECALCIFEROL (VIT D3) 5,000 UNIT TAB PO SCH (10:52)
[2020-03-18] MEDS: FAMOTIDINE 20 MG TAB PO SCH ×2 (10:52→22:17)
[2020-03-18] MEDS: ASCORBIC ACID 500 MG TAB PO SCH ×2 (10:53→22:16)
[2020-03-18] MEDS: ENOXAPARIN 80 MG/0.8 ML INJ SUB-Q SCH ×2 (10:53→22:17)
[2020-03-18] MEDS: BENZONATATE 100 MG CAP PO SCH ×2 (10:53→22:16)
--- NOTE | 2020-03-18 12:27 | Progress Note ---
Assessment and Plan Patient alert, awake. No shortness of breath at rest. Cough is better.Patients O2 requirements came down . Patient is on 2 litres o2. O2 saturation running 98%. Patient afebrile. Has mild leukocytosis. Patients [place] virus PCR is Positive. Patients chest xray done 02/24/20 reported Patchy bilateral pulmonary opacities are concerning for infection/pneumonia. Atypical/viral etiologies should be considered. Patients inflammatory markers Ferritin 319.4 LDH 68 C reactive protein .3 Troponin .01 D Dimer 1170.89 Patient was on REMDESIVIR.Finished course of REMDESIVIR. Patient presently on Methyl prednisone and S/C Lovenox 80 mg q 12 hours. Patient has CTA of chest 02/29/[address] evidence for pulmonary embolism. Diffuse bilateral airspace disease. The imaging appearance is nonspecific and could be seen in the setting of bacterial pneumonia or atypical/viral etiologies. There is mild mediastinal adenopathy. No associated effusions. Patients repeat chest xray 03/14/20 reported Mild worsening of patchy bilateral pulmonary opacity since the prior study. Patient has venous doppler studies of legs 02/29/20 reported No sonographic evidence for DVT in either lower extremity. ABG on 100% FIO2. ABG pH 7.463 (7.320-7.450) H 03/01/20 08:53 POC ABG pCO2 40.0 mmHg (32.0-48.0) 03/01/20 08:53 POC ABG pO2 71.9 mmHg (83-108) L 03/01/20 08:53 POC ABG HCO3 28.0 03/01/20 08:53 Recommend ABgs on room air. - Patient Problems (1) Acute hypoxemic respiratory failure Current Visit: Yes Status: Acute Plan to address problem: Patient is on O2 2 litres via nasal canula. Albuterol inhaler. S/C Lovenox (2) Obesity hypoventilation syndrome Current Visit: Yes Status: Acute Plan to address problem: Recommend to loose weight. ABG on 100% FIO2. ABG pH 7.463 (7.320-7.450) H 03/01/20 08:53 POC ABG pCO2 40.0 mmHg (32.0-48.0) 03/01/20 08:53 POC ABG pO2 71.9 mmHg (83-108) L 03/01/20 08:53 POC ABG HCO3 28.0 03/01/20 08:53 ABG results not suggestive of Obesity hypoventilation. Recommend sleep study as out patient. Recommend to repeat ABGs on room air. (3) Pneumonia Current Visit: Yes Status: Acute Qualifiers: Laterality: bilateral Plan to address problem: Patient was on REMDESIVIR and Methyl prednisone Antibiotics as per infectious diseases. (4) Coronavirus infection Current Visit: Yes Status: Acute Plan to address problem: Patients [place] virus PCR is positive. Patient finished course of REMDESIVIR and Methyl prednisone. Subjective Date of service: 03/18/20 Principal diagnosis: PUI COVID-19; Ac hypoxemic resp failure; Severe sepsis; Pneumonia; Obesity Interval history: Patient alert, awake. No shortness of breath at rest. Cough is better.Patients O2 requirements came down . Patient is on 2 litres o2. O2 saturation running 98%. Patient afebrile. Has mild leukocytosis. Patients [place] virus PCR is Positive. Patients chest xray done 02/24/20 reported Patchy bilateral pulmonary opacities are concerning for infection/pneumonia. Atypical/viral etiologies should be considered. Patients inflammatory markers Ferritin 319.4 LDH 68 C reactive protein .3 Troponin .01 D Dimer 1170.89 Patient was on REMDESIVIR.Finished course of REMDESIVIR. Patient presently on Methyl prednisone and S/C Lovenox 80 mg q 12 hours. Patient has CTA of chest 02/29/[address] evidence for pulmonary embolism. Diffuse bilateral airspace disease. The imaging appearance is nonspecific and could be seen in the setting of bacterial pneumonia or atypical/viral etiologies. There is mild mediastinal adenopathy. No associated effusions. Patients repeat chest xray 03/14/20 reported Mild worsening of patchy bilateral pulmonary opacity since the prior study. Patient has venous doppler studies of legs 02/29/20 reported No sonographic evidence for DVT in either lower extremity. ABG on 100% FIO2. ABG pH 7.463 (7.320-7.450) H 03/01/20 08:53 POC ABG pCO2 40.0 mmHg (32.0-48.0) 03/01/20 08:53 POC ABG pO2 71.9 mmHg (83-108) L 03/01/20 08:53 POC ABG HCO3 28.0 03/01/20 08:53 Recommend ABgs on room air. Objective Vital Signs - 12hr 01/02/21 01/02/21 01/02/21 00:40 06:17 09:17 Temperature 97.9 F Pulse Rate 77 Respiratory 20 Rate Blood Pressure 101/47 O2 Sat by Pulse 98 97 98 Oximetry Constitutional: no acute distress, alert, other (Having cough) Eyes: non-icteric ENT: oropharynx moist Neck: supple, no lymphadenopathy Effort: mildly labored Ascultation: Bilateral: rales (bases), rhonchi Percussion: Bilateral: not dull Cardiovascular: regular rate and rhythm Gastrointestinal: normoactive bowel sounds, soft, non-tender Integumentary: normal Extremities: no cyanosis, no edema Neurologic: non-focal exam, pupils equal and round Psychiatric: mood appropriate CBC and BMP: 03/13/20 07:23 03/13/20 07:23 ABG, PT/INR, D-dimer: ABG ABG pH 7.439 pH Units (7.350-7.450) 03/06/20 09:40 POC ABG pCO2 40.0 mmHg (32.0-48.0) 03/01/20 08:53 ABG pCO2 36.8 mm Hg 03/06/20 09:40 POC ABG pO2 71.9 mmHg (83-108) L 03/01/20 08:53 ABG pO2 77.4 mm Hg (80.0-90.0) L 03/06/20 09:40 POC ABG HCO3 28.0 03/01/20 08:53 ABG O2 Saturation 96.0 % (95.0-99.0) 03/06/20 09:40 PT/INR, D-dimer D-Dimer 1170.89 ng/mlDDU (0-234) H 03/05/20 16:48 Abnormal lab findings: Abnormal Labs 02/24/20 02/24/20 02/24/20 12:07 12:07 12:07 WBC RBC MCHC 35 H Lymph % (Auto) Lymph # (Auto) Seg Neutrophils % 76.6 H Seg Neuts % (Manual) Lymphocytes % (Manual) Seg Neutrophils # Seg Neutrophils # Man Lymphocytes # (Manual) Monocytes # (Manual) D-Dimer 236.88 H ABG pH POC ABG pO2 ABG pO2 ABG O2 Saturation ABG Glucose Oxyhemoglobin Carboxyhemoglobin Sodium Potassium 3.4 L Chloride BUN Creatinine Glucose POC Glucose Ferritin AST 42 H ALT Alkaline Phosphatase Lactate Dehydrogenase C-Reactive Protein Total Protein Albumin Lipase Arterial Blood Glucose Coronavirus (PCR) SARS-CoV-2 IgG Ab 02/24/20 02/24/20 02/25/20 12:07 12:07 05:16 WBC RBC 3.53 L MCHC Lymph % (Auto) Lymph # (Auto) 1.1 L Seg Neutrophils % 75.0 H Seg Neuts % (Manual) Lymphocytes % (Manual) Seg Neutrophils # Seg Neutrophils # Man Lymphocytes # (Manual) Monocytes # (Manual) D-Dimer ABG pH POC ABG pO2 ABG pO2 ABG O2 Saturation ABG Glucose Oxyhemoglobin Carboxyhemoglobin Sodium Potassium Chloride BUN Creatinine Glucose 101 H POC Glucose Ferritin 200.8 H AST ALT Alkaline Phosphatase Lactate Dehydrogenase 315 H C-Reactive Protein 12.00 H Total Protein Albumin Lipase Arterial Blood Glucose Coronavirus (PCR) SARS-CoV-2 IgG Ab 02/25/20 02/25/20 02/25/20 05:16 08:21 11:52 WBC RBC MCHC Lymph % (Auto) Lymph # (Auto) Seg Neutrophils % Seg Neuts % (Manual) Lymphocytes % (Manual) Seg Neutrophils # Seg Neutrophils # Man Lymphocytes # (Manual) Monocytes # (Manual) D-Dimer ABG pH POC ABG pO2 ABG pO2 ABG O2 Saturation ABG Glucose Oxyhemoglobin Carboxyhemoglobin Sodium Potassium Chloride 109.8 H BUN Creatinine 0.4 L Glucose 143 H POC Glucose 123 H 133 H Ferritin AST ALT Alkaline Phosphatase Lactate Dehydrogenase C-Reactive Protein Total Protein Albumin Lipase Arterial Blood Glucose Coronavirus (PCR) SARS-CoV-2 IgG Ab 02/25/20 02/25/20 02/25/20 14:21 14:21 14:21 WBC RBC MCHC Lymph % (Auto) Lymph # (Auto) Seg Neutrophils % Seg Neuts % (Manual) Lymphocytes % (Manual) Seg Neutrophils # Seg Neutrophils # Man Lymphocytes # (Manual) Monocytes # (Manual) D-Dimer 396.96 H ABG pH POC ABG pO2 ABG pO2 ABG O2 Saturation ABG Glucose Oxyhemoglobin Carboxyhemoglobin Sodium Potassium Chloride BUN Creatinine Glucose 163 H POC Glucose Ferritin 335.1 H AST ALT Alkaline Phosphatase Lactate Dehydrogenase 406 H C-Reactive Protein 6.10 H Total Protein Albumin Lipase Arterial Blood Glucose Coronavirus (PCR) SARS-CoV-2 IgG Ab 1202/25/20 02/26/20 16:17 22:45 07:55 WBC RBC MCHC Lymph % (Auto) Lymph # (Auto) Seg Neutrophils % Seg Neuts % (Manual) Lymphocytes % (Manual) Seg Neutrophils # Seg Neutrophils # Man Lymphocytes # (Manual) Monocytes # (Manual) D-Dimer ABG pH POC ABG pO2 ABG pO2 ABG O2 Saturation ABG Glucose Oxyhemoglobin Carboxyhemoglobin Sodium Potassium Chloride BUN Creatinine Glucose POC Glucose 124 H 154 H 124 H Ferritin AST ALT Alkaline Phosphatase Lactate Dehydrogenase C-Reactive Protein Total Protein Albumin Lipase Arterial Blood Glucose Coronavirus (PCR) SARS-CoV-2 IgG Ab 02/26/20 02/26/20 02/26/20 10:45 12:10 16:51 WBC RBC MCHC Lymph % (Auto) Lymph # (Auto) Seg Neutrophils % Seg Neuts % (Manual) Lymphocytes % (Manual) Seg Neutrophils # Seg Neutrophils # Man Lymphocytes # (Manual) Monocytes # (Manual) D-Dimer ABG pH POC ABG pO2 ABG pO2 ABG O2 Saturation ABG Glucose Oxyhemoglobin Carboxyhemoglobin Sodium Potassium Chloride BUN Creatinine Glucose POC Glucose 121 H 129 H Ferritin AST ALT Alkaline Phosphatase Lactate Dehydrogenase C-Reactive Protein Total Protein Albumin Lipase Arterial Blood Glucose Coronavirus (PCR) Positive A SARS-CoV-2 IgG Ab 02/26/20 02/27/20 02/27/20 22:00 07:58 12:04 WBC RBC MCHC Lymph % (Auto) Lymph # (Auto) Seg Neutrophils % Seg Neuts % (Manual) Lymphocytes % (Manual) Seg Neutrophils # Seg Neutrophils # Man Lymphocytes # (Manual) Monocytes # (Manual) D-Dimer ABG pH POC ABG pO2 ABG pO2 ABG O2 Saturation ABG Glucose Oxyhemoglobin Carboxyhemoglobin Sodium Potassium Chloride BUN Creatinine Glucose POC Glucose 134 H 115 H 146 H Ferritin AST ALT Alkaline Phosphatase Lactate Dehydrogenase C-Reactive Protein Total Protein Albumin Lipase Arterial Blood Glucose Coronavirus (PCR) SARS-CoV-2 IgG Ab 02/27/20 02/28/20 02/28/20 17:21 16:03 16:03 WBC RBC MCHC Lymph % (Auto) Lymph # (Auto) Seg Neutrophils % Seg Neuts % (Manual) Lymphocytes % (Manual) Seg Neutrophils # Seg Neutrophils # Man Lymphocytes # (Manual) Monocytes # (Manual) D-Dimer 995.51 H ABG pH POC ABG pO2 ABG pO2 ABG O2 Saturation ABG Glucose Oxyhemoglobin Carboxyhemoglobin Sodium Potassium Chloride BUN Creatinine Glucose POC Glucose 136 H Ferritin 464.3 H AST ALT Alkaline Phosphatase Lactate Dehydrogenase C-Reactive Protein Total Protein Albumin Lipase Arterial Blood Glucose Coronavirus (PCR) SARS-CoV-2 IgG Ab 02/28/20 02/28/20 02/28/20 16:03 16:03 16:03 WBC RBC MCHC Lymph % (Auto) Lymph # (Auto) Seg Neutrophils % Seg Neuts % (Manual) Lymphocytes % (Manual) Seg Neutrophils # Seg Neutrophils # Man Lymphocytes # (Manual) Monocytes # (Manual) D-Dimer ABG pH POC ABG pO2 ABG pO2 ABG O2 Saturation ABG Glucose Oxyhemoglobin Carboxyhemoglobin Sodium Potassium Chloride BUN 23 H Creatinine 0.4 L Glucose 120 H POC Glucose Ferritin AST 72 H ALT 117 H Alkaline Phosphatase 137 H Lactate Dehydrogenase 779 H C-Reactive Protein 6.10 H Total Protein Albumin 3.0 L Lipase Arterial Blood Glucose Coronavirus (PCR) SARS-CoV-2 IgG Ab Reactive A 02/28/20 02/29/20 02/29/20 22:06 07:38 11:11 WBC RBC MCHC Lymph % (Auto) Lymph # (Auto) Seg Neutrophils % Seg Neuts % (Manual) Lymphocytes % (Manual) Seg Neutrophils # Seg Neutrophils # Man Lymphocytes # (Manual) Monocytes # (Manual) D-Dimer ABG pH POC ABG pO2 ABG pO2 ABG O2 Saturation ABG Glucose Oxyhemoglobin Carboxyhemoglobin Sodium Potassium Chloride BUN Creatinine Glucose POC Glucose 119 H 121 H 129 H Ferritin AST ALT Alkaline Phosphatase Lactate Dehydrogenase C-Reactive Protein Total Protein Albumin Lipase Arterial Blood Glucose Coronavirus (PCR) SARS-CoV-2 IgG Ab 02/29/20 02/29/20 03/01/20 15:58 22:02 05:23 WBC RBC MCHC Lymph % (Auto) Lymph # (Auto) Seg Neutrophils % Seg Neuts % (Manual) Lymphocytes % (Manual) Seg Neutrophils # Seg Neutrophils # Man Lymphocytes # (Manual) Monocytes # (Manual) D-Dimer 1841.84 H ABG pH POC ABG pO2 ABG pO2 ABG O2 Saturation ABG Glucose Oxyhemoglobin Carboxyhemoglobin Sodium Potassium Chloride BUN Creatinine Glucose POC Glucose 118 H 141 H Ferritin AST ALT Alkaline Phosphatase Lactate Dehydrogenase C-Reactive Protein Total Protein Albumin Lipase Arterial Blood Glucose Coronavirus (PCR) SARS-CoV-2 IgG Ab 03/01/20 03/01/20 03/01/20 05:23 05:23 05:23 WBC 17.6 H RBC MCHC Lymph % (Auto) Lymph # (Auto) Seg Neutrophils % Seg Neuts % (Manual) 96.0 H Lymphocytes % (Manual) 2.0 L Seg Neutrophils # Seg Neutrophils # Man 16.9 H Lymphocytes # (Manual) 0.4 L Monocytes # (Manual) D-Dimer ABG pH POC ABG pO2 ABG pO2 ABG O2 Saturation ABG Glucose Oxyhemoglobin Carboxyhemoglobin Sodium Potassium Chloride BUN 19 H Creatinine 0.3 L Glucose 145 H POC Glucose Ferritin 323.9 H AST ALT 63 H Alkaline Phosphatase 132 H Lactate Dehydrogenase 746 H C-Reactive Protein 6.80 H Total Protein Albumin 2.9 L Lipase Arterial Blood Glucose Coronavirus (PCR) SARS-CoV-2 IgG Ab 03/01/20 03/01/20 03/01/20 06:30 08:53 11:07 WBC RBC MCHC Lymph % (Auto) Lymph # (Auto) Seg Neutrophils % Seg Neuts % (Manual) Lymphocytes % (Manual) Seg Neutrophils # Seg Neutrophils # Man Lymphocytes # (Manual) Monocytes # (Manual) D-Dimer ABG pH 7.463 H POC ABG pO2 71.9 L ABG pO2 ABG O2 Saturation ABG Glucose 147 H Oxyhemoglobin Carboxyhemoglobin 0.2 L Sodium Potassium Chloride BUN Creatinine Glucose POC Glucose 132 H 126 H Ferritin AST ALT Alkaline Phosphatase Lactate Dehydrogenase C-Reactive Protein Total Protein Albumin Lipase Arterial Blood Glucose 147 H Coronavirus (PCR) SARS-CoV-2 IgG Ab 03/01/20 03/01/20 03/02/20 15:50 21:24 08:08 WBC RBC MCHC Lymph % (Auto) Lymph # (Auto) Seg Neutrophils % Seg Neuts % (Manual) Lymphocytes % (Manual) Seg Neutrophils # Seg Neutrophils # Man Lymphocytes # (Manual) Monocytes # (Manual) D-Dimer ABG pH POC ABG pO2 ABG pO2 ABG O2 Saturation ABG Glucose Oxyhemoglobin Carboxyhemoglobin Sodium Potassium Chloride BUN Creatinine Glucose POC Glucose 122 H 142 H 152 H Ferritin AST ALT Alkaline Phosphatase Lactate Dehydrogenase C-Reactive Protein Total Protein Albumin Lipase Arterial Blood Glucose Coronavirus (PCR) SARS-CoV-2 IgG Ab 03/02/20 03/02/20 03/02/20 11:41 16:51 21:56 WBC RBC MCHC Lymph % (Auto) Lymph # (Auto) Seg Neutrophils % Seg Neuts % (Manual) Lymphocytes % (Manual) Seg Neutrophils # Seg Neutrophils # Man Lymphocytes # (Manual) Monocytes # (Manual) D-Dimer ABG pH POC ABG pO2 ABG pO2 ABG O2 Saturation ABG Glucose Oxyhemoglobin Carboxyhemoglobin Sodium Potassium Chloride BUN Creatinine Glucose POC Glucose 136 H 137 H 126 H Ferritin AST ALT Alkaline Phosphatase Lactate Dehydrogenase C-Reactive Protein Total Protein Albumin Lipase Arterial Blood Glucose Coronavirus (PCR) SARS-CoV-2 IgG Ab 03/03/20 03/03/20 03/03/20 08:05 13:10 19:32 WBC RBC MCHC Lymph % (Auto) Lymph # (Auto) Seg Neutrophils % Seg Neuts % (Manual) Lymphocytes % (Manual) Seg Neutrophils # Seg Neutrophils # Man Lymphocytes # (Manual) Monocytes # (Manual) D-Dimer ABG pH POC ABG pO2 ABG pO2 ABG O2 Saturation ABG Glucose Oxyhemoglobin Carboxyhemoglobin Sodium Potassium Chloride BUN 27 H Creatinine 0.5 L D Glucose 200 H POC Glucose 147 H 114 H Ferritin AST ALT Alkaline Phosphatase Lactate Dehydrogenase C-Reactive Protein Total Protein Albumin 3.1 L Lipase Arterial Blood Glucose Coronavirus (PCR) SARS-CoV-2 IgG Ab 03/03/20 03/03/20 03/03/20 19:32 19:39 22:44 WBC 20.3 H RBC MCHC Lymph % (Auto) Lymph # (Auto) Seg Neutrophils % Seg Neuts % (Manual) 90.0 H Lymphocytes % (Manual) 4.0 L Seg Neutrophils # Seg Neutrophils # Man 18.3 H Lymphocytes # (Manual) 0.8 L Monocytes # (Manual) 1.2 H D-Dimer ABG pH POC ABG pO2 ABG pO2 ABG O2 Saturation ABG Glucose Oxyhemoglobin Carboxyhemoglobin Sodium Potassium Chloride BUN Creatinine Glucose POC Glucose 186 H 159 H Ferritin AST ALT Alkaline Phosphatase Lactate Dehydrogenase C-Reactive Protein Total Protein Albumin Lipase Arterial Blood Glucose Coronavirus (PCR) SARS-CoV-2 IgG Ab 03/04/20 03/04/20 03/04/20 06:06 06:06 07:52 WBC 17.2 H RBC MCHC Lymph % (Auto) Lymph # (Auto) Seg Neutrophils % Seg Neuts % (Manual) 88.0 H Lymphocytes % (Manual) 5.0 L Seg Neutrophils # 15.3 H Seg Neutrophils # Man 15.1 H Lymphocytes # (Manual) 0.9 L Monocytes # (Manual) D-Dimer ABG pH POC ABG pO2 ABG pO2 ABG O2 Saturation ABG Glucose Oxyhemoglobin Carboxyhemoglobin Sodium Potassium Chloride BUN 31 H Creatinine 0.4 L Glucose 144 H POC Glucose 131 H Ferritin AST ALT Alkaline Phosphatase Lactate Dehydrogenase C-Reactive Protein Total Protein Albumin 3.0 L Lipase Arterial Blood Glucose Coronavirus (PCR) SARS-CoV-2 IgG Ab 03/04/20 03/04/20 03/04/20 11:30 11:40 16:21 WBC RBC MCHC Lymph % (Auto) Lymph # (Auto) Seg Neutrophils % Seg Neuts % (Manual) Lymphocytes % (Manual) Seg Neutrophils # Seg Neutrophils # Man Lymphocytes # (Manual) Monocytes # (Manual) D-Dimer ABG pH 7.489 H POC ABG pO2 ABG pO2 54.6 L ABG O2 Saturation 90.4 L ABG Glucose Oxyhemoglobin 89.1 L Carboxyhemoglobin Sodium Potassium Chloride BUN Creatinine Glucose POC Glucose 121 H 155 H Ferritin AST ALT Alkaline Phosphatase Lactate Dehydrogenase C-Reactive Protein Total Protein Albumin Lipase Arterial Blood Glucose Coronavirus (PCR) SARS-CoV-2 IgG Ab 03/05/20 03/05/20 03/05/20 12:01 16:48 16:48 WBC RBC MCHC Lymph % (Auto) Lymph # (Auto) Seg Neutrophils % Seg Neuts % (Manual) Lymphocytes % (Manual) Seg Neutrophils # Seg Neutrophils # Man Lymphocytes # (Manual) Monocytes # (Manual) D-Dimer 1170.89 H ABG pH POC ABG pO2 ABG pO2 ABG O2 Saturation ABG Glucose Oxyhemoglobin Carboxyhemoglobin Sodium Potassium Chloride BUN Creatinine Glucose POC Glucose 116 H Ferritin 348.4 H AST ALT Alkaline Phosphatase Lactate Dehydrogenase C-Reactive Protein Total Protein Albumin Lipase Arterial Blood Glucose Coronavirus (PCR) SARS-CoV-2 IgG Ab 03/05/20 03/05/20 03/06/20 16:48 17:40 09:40 WBC RBC MCHC Lymph % (Auto) Lymph # (Auto) Seg Neutrophils % Seg Neuts % (Manual) Lymphocytes % (Manual) Seg Neutrophils # Seg Neutrophils # Man Lymphocytes # (Manual) Monocytes # (Manual) D-Dimer ABG pH POC ABG pO2 ABG pO2 77.4 L ABG O2 Saturation ABG Glucose Oxyhemoglobin 94.5 L Carboxyhemoglobin Sodium Potassium Chloride BUN Creatinine Glucose POC Glucose 233 H Ferritin AST ALT Alkaline Phosphatase Lactate Dehydrogenase 619 H C-Reactive Protein 3.50 H Total Protein Albumin Lipase Arterial Blood Glucose Coronavirus (PCR) SARS-CoV-2 IgG Ab 03/06/20 03/06/20 03/07/20 11:52 17:05 04:22 WBC 16.6 H RBC MCHC Lymph % (Auto) 7.9 L Lymph # (Auto) Seg Neutrophils % 87.5 H Seg Neuts % (Manual) Lymphocytes % (Manual) Seg Neutrophils # 14.5 H Seg Neutrophils # Man Lymphocytes # (Manual) Monocytes # (Manual) D-Dimer ABG pH POC ABG pO2 ABG pO2 ABG O2 Saturation ABG Glucose Oxyhemoglobin Carboxyhemoglobin Sodium Potassium Chloride BUN Creatinine Glucose POC Glucose 168 H 163 H Ferritin AST ALT Alkaline Phosphatase Lactate Dehydrogenase C-Reactive Protein Total Protein Albumin Lipase Arterial Blood Glucose Coronavirus (PCR) SARS-CoV-2 IgG Ab 03/07/20 03/07/20 03/07/20 04:22 11:27 16:55 WBC RBC MCHC Lymph % (Auto) Lymph # (Auto) Seg Neutrophils % Seg Neuts % (Manual) Lymphocytes % (Manual) Seg Neutrophils # Seg Neutrophils # Man Lymphocytes # (Manual) Monocytes # (Manual) D-Dimer ABG pH POC ABG pO2 ABG pO2 ABG O2 Saturation ABG Glucose Oxyhemoglobin Carboxyhemoglobin Sodium 134 L Potassium Chloride BUN 27 H Creatinine 0.4 L Glucose 109 H POC Glucose 108 H 140 H Ferritin AST ALT Alkaline Phosphatase Lactate Dehydrogenase C-Reactive Protein Total Protein 6.1 L Albumin 3.1 L Lipase Arterial Blood Glucose Coronavirus (PCR) SARS-CoV-2 IgG Ab 03/08/20 03/08/20 03/09/20 17:17 18:37 12:10 WBC RBC MCHC Lymph % (Auto) Lymph # (Auto) Seg Neutrophils % Seg Neuts % (Manual) Lymphocytes % (Manual) Seg Neutrophils # Seg Neutrophils # Man Lymphocytes # (Manual) Monocytes # (Manual) D-Dimer ABG pH POC ABG pO2 ABG pO2 ABG O2 Saturation ABG Glucose Oxyhemoglobin Carboxyhemoglobin Sodium Potassium Chloride BUN Creatinine Glucose POC Glucose 145 H 231 H 115 H Ferritin AST ALT Alkaline Phosphatase Lactate Dehydrogenase C-Reactive Protein Total Protein Albumin Lipase Arterial Blood Glucose Coronavirus (PCR) SARS-CoV-2 IgG Ab 03/10/20 03/10/20 03/12/20 11:23 15:34 10:19 WBC RBC MCHC Lymph % (Auto) Lymph # (Auto) Seg Neutrophils % Seg Neuts % (Manual) Lymphocytes % (Manual) Seg Neutrophils # Seg Neutrophils # Man Lymphocytes # (Manual) Monocytes # (Manual) D-Dimer ABG pH POC ABG pO2 ABG pO2 ABG O2 Saturation ABG Glucose Oxyhemoglobin Carboxyhemoglobin Sodium Potassium Chloride BUN Creatinine Glucose POC Glucose 125 H Ferritin 319.4 H AST ALT Alkaline Phosphatase Lactate Dehydrogenase C-Reactive Protein Total Protein 5.9 L Albumin 3.0 L Lipase 86 H Arterial Blood Glucose Coronavirus (PCR) SARS-CoV-2 IgG Ab 03/13/20 03/13/20 03/14/20 07:23 07:23 04:40 WBC 12.2 H RBC MCHC Lymph % (Auto) Lymph # (Auto) Seg Neutrophils % Seg Neuts % (Manual) Lymphocytes % (Manual) Seg Neutrophils # Seg Neutrophils # Man Lymphocytes # (Manual) Monocytes # (Manual) D-Dimer ABG pH POC ABG pO2 ABG pO2 ABG O2 Saturation ABG Glucose Oxyhemoglobin Carboxyhemoglobin Sodium 136 L Potassium Chloride BUN 20 H Creatinine 0.5 L Glucose POC Glucose Ferritin AST ALT Alkaline Phosphatase Lactate Dehydrogenase C-Reactive Protein Total Protein 6.1 L Albumin 3.1 L Lipase 68 H Arterial Blood Glucose Coronavirus (PCR) SARS-CoV-2 IgG Ab Chest x-ray: report reviewed, image reviewed Additional Studies: CHEST 1 VIEW 03/14/2020 1:29 PM INDICATION / CLINICAL INFORMATION: Pneumonia; COVID. COMPARISON: 02/24/2020 FINDINGS: SUPPORT DEVICES: None. HEART / MEDIASTINUM: No significant abnormality. LUNGS / PLEURA: Patchy bilateral pulmonary opacities have mildly worsened. No pneumothorax. ADDITIONAL FINDINGS: No significant additional findings. IMPRESSION: 1. Mild worsening of patchy bilateral pulmonary opacity since the prior study. Allied health notes reviewed: nursing
--- NOTE | 2020-03-18 14:18 | Progress Note ---
Assessment and Plan Assessment and plan: Patient is medically stable for discharge Family arranged home oxygen, however oxygen concentrator is not available Hence discharge is held. --Worsening patchy bilateral opacities: on follow-up x-ray on 03/14/2020/yesterday We will hold off discharge and closely monitor next 24 hours Patient's ambulatory O2 sats dropped to 82% per nurse Patient has no resources, family agreed to set up home oxygen However oxygen concentrator is not available, unable to discharge -- Acute hypoxemic respiratory failure Current Visit: Yes Status: Acute Plan to address problem: Patient on 40 L high flow oxygen Worsening clinical picture Slightly improved on nasal cannula oxygen -- Covid pneumonia Current Visit: Yes Status: Acute Plan to address problem: Patient is coronavirus PCR positive on 02/26/2020 Patient is also SARS-CoV-2 IgG positive Patient is not a candidate for Covid convalescent plasma Steroids, remdesivir for total 5 days Continue anticoagulation Prone positioning as possible High flow oxygen Wean to nasal cannula oxygen Home O2 evaluation -- Pneumonia Current Visit: Yes Status: Acute Plan to address problem: Follow-up chest x-ray worsening bilateral infiltrates Continue oxygen and supportive care -- severe sepsis Remains hypoxic likely due to bilateral pneumonia Continue IV antibiotics --Abdominal Pain; acute gastritis supportive care, abdominal ultrasound, possible GI consult if no improvement --DVT prophylaxis Current Visit: Yes Status: Acute Plan to address problem: High-dose Lovenox Monitor closely and adjust the management as needed Plan of care reviewed with the patient and her nurse as well as the case ty strickland Consults and recommendations noted and appreciated Evaluate for home oxygen Possible discharge home tomorrow if stable and if oxygen concentrator is available Consults and recommendations noted and appreciated DC planning per case management 50 YO Female with Obesity Hypoventilation Syndrome presents to ED for evaluation. Patient states that she has "been feeling sick" for the past 2 weeks with persistent symptoms over the same timeframe. Patient was seen and evaluated by her primary care physician and treated with oral antibiotics for outpatient pneumonia. Patient states that she has experienced persistent symptoms in spite of of compliance with medication. Patient reports fever, dry cough, shortness of breath, decreased exercise tolerance, nausea, multiple episodes of vomiting, multiple loose stools, loss of sense of smell, loss of sense of taste, fatigue, malaise, body aches. Patient transported to [facility] via private vehicle for further care and evaluation of the aforementioned symptoms. Patient seen and evaluated in the emergency department. All lab and imaging st udies reviewed. Patient found to have a fever to 102.1 F, as well as a pulse oximetry of 88% with exertion on room air which is consistent with acute hypoxemic respiratory failure. Patient underwent chest x-ray which revealed bilateral pneumonia. Patient admitted to medical floor and initiated on pneumonia protocol as well as coronavirus protocol. Coronavirus PCR ordered in the emergency department and is pending at time of admission. Patient acknowledges fever, but denies chest pain, palpitation, skin rash, recent ill contacts, trauma, or known exposure to COVID-19. No medication listed at time of admission. No prior admission for review. 02/29/2020 Patient alert, awake. Having cough. Having mild shortness of breath at rest. Patient is on vapotherm, FIO2 100% and O2 saturation 90%. Patient switched to BIPAP. But patient not using it.Patient afebrile. No leukocytosis. Complaining headache at times.Patients [place] virus PCR is Positive. Patients chest xray done 02/24/20 reported Patchy bilateral pulmonary opacities are concerning for infection/pneumonia. 03/01/2020 03/01/2020 Patient on high flow oxygen and BiPAP 03/02/2020 Patient still on high flow oxygen and BiPAP 03/03/2020 Patient with worsening inflammatory markers Chest x-ray worsening with extensive consolidations Patient will be transferred to ICU 03/04/2020 Patient on high flow oxygen-40 L Worsening pulmonary alveolar infiltrates Possible intubation !05/07/19 On High flow oxygen 03/07/2020 Patient still on high flow oxygen Not intubated 03/08- on HFNC 03/10: Clinically showing some improvement as HFNC is improving. Continue weaning as tolerated 03/11: Continue supportive care, weaning oxygen as tolerated. Can transfer to 3rd floor if weaned off HFNC. 03/12: Patient respiratory meier continues to improve, did have some abdominal pain with FOOD, Will check LFT, ammonia, and Lipase and abdominal ultrasound, considering patient is 35% FIO2, will transfer to [facility]. 03/14; patient feels slightly better abdominal pain significantly improved Patient was on high flow oxygen for few days, currently on 4 L nasal cannula oxygen Wean and titrate to O2 sats more than 90% Check resting and ambulatory room air O2 sats, Case management for possible home health Possible discharge in 1 to 2 days if stable and if cleared by pulmonary 03/15: Initially was planning to discharge home on nasal cannula oxygen However patient's repeat x-ray l yesterday t showed worsening infiltrates, worsening shortness of breath We will closely monitor next 24 hours, and DC home if stable Resting O2 90%, ambulatory room air O2 83%, on 2 L of nasal cannula oxygen improved to 95% Recommended home oxygen, patient uninsured no resources, patient's family willing to pay for for the oxygen Patient will be discharged tomorrow if stable 03/17/2020; patient feels slightly better still hypoxic, oxygen is available however there is shortage of O2 concentrator Will check with case management about discharge plan, possible discharge home tomorrow if O2 concentrator and oxygen are set up 03/18/2020; patient is medically stable for discharge, hypoxic needs home oxygen, O2 is set up however oxygen concentrator is not available Case management processing, discharge when oxygen concentrator is available Plan of care discussed with the patient and her nurse History Interval history: I have seen and examined the patient at the bedside Patient's chart and medications reviewed Patient feels better no new complaints Hypoxic requires home oxygen Home O2 is set up oxygen concentrator is not available Patient is stable for discharge Vital signs reviewed Hospitalist Physical - Constitutional Vitals: Temp Pulse Resp BP Pulse Ox 98.3 F 85 18 100/36 96 03/18/20 11:14 03/18/20 11:14 03/18/20 11:14 03/18/20 11:14 03/18/20 11:14 General appearance: Present: no acute distress, well-nourished, obese - EENT Eyes: Present: PERRL, EOM intact - Neck Neck: Present: supple, normal ROM - Respiratory Respiratory effort: normal Respiratory: bilateral: diminished, negative: rales, rhonchi, wheezing - Cardiovascular Rhythm: regular Heart Sounds: Present: S1 & S2 - Extremities Extremities: no ischemia, No edema - Abdominal General gastrointestinal: soft, non-tender, non-distended - Integumentary Integumentary: Present: clear, warm - Psychiatric Psychiatric: appropriate mood/affect, cooperative - Neurologic Neurologic: moves all extremities HEART Score - HEART Score Troponin: Troponin T < 0.010 ng/mL (0.00-0.029) 02/28/20 16:03 Results - Labs CBC & Chem 7: 03/13/20 07:23 03/13/20 07:23 Labs: Laboratory Last Values WBC 12.2 K/mm3 (4.5-11.0) H 03/13/20 07:23 RBC 4.00 M/mm3 (3.65-5.03) 03/13/20 07:23 Hgb 12.0 gm/dl (10.1-14.3) 03/13/20 07:23 Hct 36.2 % (30.3-42.9) 03/13/20 07:23 MCV 90 fl (79-97) 03/13/20 07:23 MCH 30 pg (28-32) 03/13/20 07:23 MCHC 33 % (30-34) 03/13/20 07:23 RDW 13.8 % (13.2-15.2) 03/13/20 07:23 Plt Count 215 K/mm3 (140-440) 03/13/20 07:23 Lymph % (Auto) 7.9 % (13.4-35.0) L 03/07/20 04:22 [place] % (Auto) 3.5 % (0.0-7.3) 03/07/20 04:22 Eos % (Auto) 0.9 % (0.0-4.3) 03/07/20 04:22 Baso % (Auto) 0.2 % (0.0-1.8) 03/07/20 04:22 Lymph # (Auto) 1.3 K/mm3 (1.2-5.4) 03/07/20 04:22 [place] # (Auto) 0.6 K/mm3 (0.0-0.8) 03/07/20 04:22 Eos # (Auto) 0.2 K/mm3 (0.0-0.4) 03/07/20 04:22 Baso # (Auto) 0.0 K/mm3 (0.0-0.1) 03/07/20 04:22 Add Manual Diff Complete 03/04/20 06:06 Total Counted 100 03/04/20 06:06 Seg Neutrophils % 87.5 % (40.0-70.0) H 03/07/20 04:22 Seg Neuts % (Manual) 88.0 % (40.0-70.0) H 03/04/20 06:06 Lymphocytes % (Manual) 5.0 % (13.4-35.0) L 03/04/20 06:06 Reactive Lymphs % (Man) 1.0 % 03/04/20 06:06 Monocytes % (Manual) 4.0 % (0.0-7.3) 03/04/20 06:06 Eosinophils % (Manual) 1.0 % (0.0-4.3) 03/04/20 06:06 Metamyelocytes % 1.0 % 03/04/20 06:06 Nucleated RBC % Not Reportable 03/04/20 06:06 Seg Neutrophils # 14.5 K/mm3 (1.8-7.7) H 03/07/20 04:22 Seg Neutrophils # Man 15.1 K/mm3 (1.8-7.7) H 03/04/20 06:06 Band Neutrophils # 0.0 K/mm3 03/04/20 06:06 Lymphocytes # (Manual) 0.9 K/mm3 (1.2-5.4) L 03/04/20 06:06 Abs React Lymphs (Man) 0.2 K/mm3 03/04/20 06:06 Monocytes # (Manual) 0.7 K/mm3 (0.0-0.8) 03/04/20 06:06 Eosinophils # (Manual) 0.2 K/mm3 (0.0-0.4) 03/04/20 06:06 Basophils # (Manual) 0.0 K/mm3 (0.0-0.1) 03/04/20 06:06 Metamyelocytes # 0.2 K/mm3 03/04/20 06:06 Myelocytes # 0.0 K/mm3 03/04/20 06:06 Promyelocytes # 0.0 K/mm3 03/04/20 06:06 Blast Cells # 0.0 K/mm3 03/04/20 06:06 WBC Morphology Not Reportable 03/04/20 06:06 Hypersegmented Neuts Not Reportable 03/04/20 06:06 Hyposegmented Neuts Not Reportable 03/04/20 06:06 Hypogranular Neuts Not Reportable 03/04/20 06:06 Smudge Cells Not Reportable 03/04/20 06:06 Toxic Granulation Not Reportable 03/04/20 06:06 Toxic Vacuolation Not Reportable 03/04/20 06:06 Dohle Bodies Not Reportable 03/04/20 06:06 Pelger-Huet Anomaly Not Reportable 03/04/20 06:06 Mian Rods Not Reportable 03/04/20 06:06 Platelet Estimate Consistent w auto 03/04/20 06:06 Clumped Platelets Not Reportable 03/04/20 06:06 Plt Clumps, EDTA Not Reportable 03/04/20 06:06 Large Platelets Not Reportable 03/04/20 06:06 Giant Platelets Not Reportable 03/04/20 06:06 Platelet Satelliting Not Reportable 03/04/20 06:06 Plt Morphology Comment Not Reportable 03/04/20 06:06 RBC Morphology Normal 03/04/20 06:06 Dimorphic RBCs Not Reportable 03/04/20 06:06 Polychromasia Not Reportable 03/04/20 06:06 Hypochromasia Not Reportable 03/04/20 06:06 Poikilocytosis Not Reportable 03/04/20 06:06 Anisocytosis Not Reportable 03/04/20 06:06 Microcytosis Not Reportable 03/04/20 06:06 Macrocytosis Not Reportable 03/04/20 06:06 Spherocytes Not Reportable 03/04/20 06:06 Pappenheimer Bodies Not Reportable 03/04/20 06:06 Sickle Cells Not Reportable 03/04/20 06:06 Target Cells Not Reportable 03/04/20 06:06 Tear Drop Cells Not Reportable 03/04/20 06:06 Ovalocytes Not Reportable 03/04/20 06:06 Helmet Cells Not Reportable 03/04/20 06:06 Weiss-Brashear Bodies Not Reportable 03/04/20 06:06 Maurice Rings Not Reportable 03/04/20 06:06 Houstonia Cells Not Reportable 03/04/20 06:06 Bite Cells Not Reportable 03/04/20 06:06 Crenated Cell Not Reportable 03/04/20 06:06 Elliptocytes Not Reportable 03/04/20 06:06 Acanthocytes (Spur) Not Reportable 03/04/20 06:06 Rouleaux Not Reportable 03/04/20 06:06 Hemoglobin C Crystals Not Reportable 03/04/20 06:06 Schistocytes Not Reportable 03/04/20 06:06 Malaria parasites Not Reportable 03/04/20 06:06 Jesus Bodies Not Reportable 03/04/20 06:06 Hem Pathologist Commnt No 03/04/20 06:06 D-Dimer 1170.89 ng/mlDDU (0-234) H 03/05/20 16:48 ABG pH 7.439 pH Units (7.350-7.450) 03/06/20 09:40 POC ABG pCO2 40.0 mmHg (32.0-48.0) 03/01/20 08:53 ABG pCO2 36.8 mm Hg 03/06/20 09:40 POC ABG pO2 71.9 mmHg (83-108) L 03/01/20 08:53 ABG pO2 77.4 mm Hg (80.0-90.0) L 03/06/20 09:40 POC ABG HCO3 28.0 03/01/20 08:53 ABG HCO3 24.4 mmol/L (20.0-26.0) 03/06/20 09:40 ABG O2 Saturation 96.0 % (95.0-99.0) 03/06/20 09:40 ABG O2 Content 18.4 (0.0-44) 03/06/20 09:40 POC ABG Base Excess 4.0 03/01/20 08:53 ABG Base Excess 0.5 mmol/L (-2.0-3.0) 03/06/20 09:40 ABG Hemoglobin 13.8 gm/dl (12.0-16.0) 03/06/20 09:40 ABG Oxyhemoglobin 94.1 (94-98) 03/01/20 08:53 ABG Carboxyhemoglobin 1.1 % (0.0-5.0) 03/06/20 09:40 ABG Methemoglobin 0.4 % (0.0-1.5) 03/06/20 09:40 ABG Sodium 139.8 mmol/L (136.0-145.0) 03/01/20 08:53 ABG Potassium 3.9 mmol/L (3.40-4.50) 03/01/20 08:53 ABG Chloride 105.0 mmol/L (98-107) 03/01/20 08:53 ABG Glucose 147 mg/dL (65-95) H 03/01/20 08:53 Oxyhemoglobin 94.5 % (95.0-99.0) L 03/06/20 09:40 Carboxyhemoglobin 0.2 (0.5-1.5) L 03/01/20 08:53 FiO2 100 % 03/06/20 09:40 Sodium 136 mmol/L (137-145) L 03/13/20 07:23 Potassium 3.6 mmol/L (3.6-5.0) 03/13/20 07:23 Chloride 101.3 mmol/L (98-107) 03/13/20 07:23 Carbon Dioxide 27 mmol/L (22-30) 03/13/20 07:23 Anion Gap 11 mmol/L 03/13/20 07:23 BUN 20 mg/dL (7-17) H 03/13/20 07:23 Creatinine 0.5 mg/dL (0.6-1.2) L 03/13/20 07:23 Estimated GFR > 60 ml/min 03/13/20 07:23 BUN/Creatinine Ratio 40 % 03/13/20 07:23 Glucose 88 mg/dL (65-100) 03/13/20 07:23 POC Glucose 74 mg/dL (70-105) 03/18/20 11:43 Lactic Acid 1.00 mmol/L (0.7-2.0) 02/24/20 14:31 Calcium 8.9 mg/dL (8.4-10.2) 03/13/20 07:23 Ferritin 319.4 ng/mL (10.0-200.0) H 03/10/20 15:34 Total Bilirubin 0.20 mg/dL (0.1-1.2) 03/13/20 07:23 Direct Bilirubin < 0.2 mg/dL (0-0.2) 03/12/20 10:19 Indirect Bilirubin 0.0 mg/dL 03/12/20 10:19 AST 23 units/L (5-40) 03/13/20 07:23 ALT 51 units/L (7-56) 03/13/20 07:23 Alkaline Phosphatase 66 units/L (35-129) 03/13/20 07:23 Lactate Dehydrogenase 619 units/L (91-180) H 03/05/20 16:48 Troponin T < 0.010 ng/mL (0.00-0.029) 02/28/20 16:03 C-Reactive Protein 0.30 mg/dL (0.00-1.30) 03/10/20 15:34 NT-Pro-B Natriuret Pep 47.67 pg/mL (0-450) 03/02/20 16:51 Total Protein 6.1 g/dL (6.3-8.2) L 03/13/20 07:23 Albumin 3.1 g/dL (3.9-5) L 03/13/20 07:23 Albumin/Globulin Ratio 1.0 % 03/13/20 07:23 Lipase 68 units/L (13-60) H 03/14/20 04:40 Procalcitonin < 0.05 ng/mL (<0.15) 02/25/20 14:21 Arterial Blood Glucose 147 mg/dL (65-95) H 03/01/20 08:53 Arterial Blood Ionized Calcium 4.7 mg/dL (4.6-5.3) 03/01/20 08:53 Urine Color Yellow (Yellow) 02/24/20 Unknown Urine Turbidity Clear (Clear) 02/24/20 Unknown Urine pH 6.0 (5.0-7.0) 02/24/20 Unknown Ur Specific [place] 1.023 (1.003-1.030) 02/24/20 Unknown Urine Protein 100 mg/dl mg/dL (Negative) 02/24/20 Unknown Urine Glucose (UA) Neg mg/dL (Negative) 02/24/20 Unknown Urine Ketones Neg mg/dL (Negative) 02/24/20 Unknown Urine Blood Neg (Negative) 02/24/20 Unknown Urine Nitrite Neg (Negative) 02/24/20 Unknown Urine Bilirubin Neg (Negative) 02/24/20 Unknown Urine Urobilinogen 2.0 mg/dL (<2.0) 02/24/20 Unknown Ur Leukocyte Esterase Neg (Negative) 02/24/20 Unknown Urine WBC (Auto) 4.0 /HPF (0.0-6.0) 02/24/20 Unknown Urine RBC (Auto) 2.0 /HPF (0.0-6.0) 02/24/20 Unknown U Epithel Cells (Auto) 3.0 /HPF (0-13.0) 02/24/20 Unknown Urine Bacteria (Auto) 1+ /HPF (Negative) 02/24/20 Unknown Urine Mucus 1+ /HPF 02/24/20 Unknown Coronavirus (PCR) Positive (Negative) A 02/26/20 10:45 SARS-CoV-2 IgG Ab Reactive (NonReactive) A 02/28/20 16:03 - Diagnostic Impressions Diagnostic Impressions: Echocardiogram 03/01/20 09:12 Transthoracic Echocardiogram Indication: Eval EF; PA HTN BP: 121/78 HR: 90 Conclusions *Global left ventricular systolic function is normal. *The estimated ejection fraction is 60-65%. *The right ventricular global systolic function is normal. *There is no evidence of aortic regurgitation. *There is trace of mitral regurgitation. *There is trace tricuspid regurgitation. *The right ventricular systolic pressure is calculated at 28 mmHg. *There is trace pulmonic regurgitation. Findings Left Ventricle: The left ventricular chamber size is normal. There is no left ventricular hypertrophy. Global left ventricular wall motion and contractility are within normal limits. Global left ventricular systolic function is normal. The estimated ejection fraction is 60-65%. There is an E to A reversal in the mitral valve flow pattern suggestive of diastolic dysfunction. Left Atrium: The left atrial chamber size is normal. Right Ventricle: The right ventricular cavity size is normal. The right ventricular global systolic function is normal. Right Atrium: The right atrial cavity size is normal. Aortic Valve: There is no evidence of aortic valve thickening. There is no evidence of aortic regurgitation. Mitral Valve: The mitral valve leaflets do not appear thickened. There is trace of mitral regurgitation. Tricuspid Valve: The tricuspid valve leaflets are normal. There is trace tricuspid regurgitation. The right ventricular systolic pressure is calculated at 28 mmHg. Pulmonic Valve: There is no evidence of pulmonic valve thickening. There is trace pulmonic regurgitation. Pericardium: There is no pericardial effusion. Aorta: The aorta appears normal. Venous: The inferior vena cava appears normal in size. Measurements Chambers 2D Name Value Normal Range IVSd (2D) 0.97 cm (0.6 - 1.1) LVPWd (2D) 1.05 cm (0.6 - 1.1) LVIDd (2D) 3.87 cm (3.7 - 5.6) LVIDs (2D) 2.41 cm (2 - 3.8) LV FS (2D) 37.69 % - EF Teichholz (2D) 68.47 % - Ao root diameter (2D) 2.92 cm (2 - 3.7) Volumes/Mass Name Value Normal Range LA ESV SP 4CH (A/L) 32.2 ml - LA ESV SP 2CH (A/L) 24.78 ml - LA ESV BP (A/L) 29.52 ml - LA ESV BP (A/L) index 16.68 ml/m2 - LA ESV SP 4CH (MOD) 29.62 ml - LA ESV SP 2CH (MOD) 23.68 ml - LA ESV BP (MOD) 27.57 ml - LA ESV BP (MOD) index 15.58 ml/m2 - Diastolic/Systolic Function Name Value Normal Range MV E-wave Vmax 0.59 m/sec - MV deceleration time 258.54 msec - MV A-wave Vmax 0.73 m/sec - MV E:A ratio 0.81 ratio - Aortic Valve Name Value Normal Range AV Vmax 1.33 m/sec - AV VTI 22.87 cm - AV peak gradient 7.09 mmHg - AV mean gradient 4.39 mmHg - LVOT diameter 1.52 cm - LVOT Vmax 1.22 m/sec - LVOT VTI 20.85 cm - LVOT peak gradient 5.96 mmHg - LVOT mean gradient 2.91 mmHg - SV LVOT 37.79 ml - VINEET (continuity Vmax) 1.66 cm2 - VINEET (continuity VTI) 1.65 cm2 - Ascending Ao 2.78 cm - Tricuspid Valve Name Value Normal Range TR Vmax 2.48 m/sec - TR peak gradient 25 mmHg - RAP 3 mmHg - RVSP 28 mmHg - IVC diameter 1.77 cm (1.2 - 2.3) Pulmonic Valve/Qp:Qs Name Value Normal Range PV Vmax 0.85 m/sec - PV peak gradient 2.9 mmHg - AR end-diastolic Vmax 1.26 m/sec - PV acceleration time 144.62 msec - [place]/IV: Voiding Method Toilet IV Catheter Type [Right Peripheral IV Forearm] IV Catheter Type [Right Peripheral IV Antecubital] Active Medications - Current Medications Current Medications: Generic Name Dose Route Start Last Admin Trade Name Freq PRN Reason Stop Dose Admin Acetaminophen 650 mg 02/24/20 15:14 03/17/20 21:34 Acetaminophen 325 Mg Tab PO 650 mg Q4H PRN Administration Pain MILD(1-3)/Fever >100.5/DANGELO Albuterol 2.5 mg 02/24/20 15:14 Albuterol 2.5 Mg/3 Ml Nebu IH Q4HRT PRN Shortness Of Breath Ascorbic Acid 1,000 mg 02/29/20 23:45 03/18/20 10:53 Ascorbic Acid 500 Mg Tab PO 1,000 mg BID UTE Administration Benzonatate 100 mg 02/25/20 22:00 03/18/20 10:53 Benzonatate 100 Mg Cap PO 100 mg BID UTE Administration Cholecalciferol 5,000 unit 03/01/20 10:00 03/18/20 10:52 Cholecalciferol (Vit D3) 5,000 Unit Tab PO 5,000 unit DAILY UTE Administration Enoxaparin Sodium 80 mg 02/29/20 23:45 03/18/20 10:53 Enoxaparin 80 Mg/0.8 Ml Inj SUB-Q 80 mg Q12HR UTE Administration Protocol Famotidine 10 mg 03/13/20 23:00 03/18/20 10:52 Famotidine 20 Mg Tab PO 10 mg BID UTE Administration Hydrocodone Bit/Homatropine Methylb 10 ml 02/26/20 15:00 03/18/20 04:06 Hydrocodone/Homatropine 5-1.5mg /5 Ml Oral Liqd Unit Dose PO 10 ml Q6H PRN Administration Cough Morphine Sulfate 2 mg 03/11/20 19:35 03/13/20 10:41 Morphine 2 Mg/1 Ml Inj IV 2 mg Q4H PRN Administration Pain, Moderate (4-6) Ondansetron HCl 4 mg 02/24/20 15:14 Ondansetron 4 Mg/2 Ml Inj IV Q8H PRN Nausea And Vomiting Sodium Chloride 10 ml 02/24/20 22:00 03/18/20 10:53 Sodium Chloride 0.9% 10 Ml Flush Syringe IV 10 ml BID UTE Administration Sodium Chloride 10 ml 02/24/20 15:14 Sodium Chloride 0.9% 10 Ml Flush Syringe IV PRN PRN LINE FLUSH Tramadol HCl 50 mg 02/29/20 22:10 03/17/20 14:20 Tramadol 50 Mg Tab PO 50 mg Q6H PRN Administration Pain, Moderate (4-6) Nutrition/Malnutrition Assess - Dietary Evaluation Nutrition/Malnutrition Findings: Nutrition Notes Start: 03/02/20 12:47 Freq: Status: Active Protocol: Document 03/02/20 12:47 EN (Rec: 03/02/20 12:53 EN [email or web address]) Co-Sign 03/02/20 12:47 MK Nutrition Notes Need for Assessment generated from: LOS Initial or Follow up Brief Note Current Diagnosis Sepsis Other Pertinent Diagnosis COVID-19+, Pneu, acute respiratory failure Current Diet Cardiac [place] Body Weight (kg) 0 Subjective/Other Information Pt screened for LOS. Unable to reach pt by phone x2 for assessment. RN unsure of current PO intakes for today but states pt has not had any N/V/D. Per chart, 100% meal consumption consistently Nutrition Intervention Anticipated Discharge Needs: Cardiac diet Revisit per MD consult or patient Sign Off request:
[2020-03-18] MEDS: traMADol 50 MG TAB PO PRN ×2 (14:40→22:17)
[2020-03-19] MEDS: ACETAMINOPHEN 325 MG TAB PO PRN (06:03)
--- NOTE | 2020-03-19 10:31 | Progress Note ---
Assessment and Plan Assessment and plan: Patient is medically stable for discharge/waiting for oxygen concentrator Family arranged home oxygen, --Severe Covid pneumonia bilateral opacities: follow-up x-ray on 03/14/2020/reviewed Home oxygen evaluation done Patient is a candidate for home oxygen, O2 is set up Oxygen concentrator not available awaiting Case management processing -- Acute hypoxemic respiratory failure Current Visit: Yes Status: Acute Plan to address problem: Patient on 40 L high flow oxygen Worsening clinical picture Slightly improved on nasal cannula oxygen -- Covid pneumonia Current Visit: Yes Status: Acute Plan to address problem: Patient is coronavirus PCR positive on 02/26/2020 Patient is also SARS-CoV-2 IgG positive Patient is not a candidate for Covid convalescent plasma Steroids, remdesivir for total 5 days Continue anticoagulation Prone positioning as possible High flow oxygen Wean to nasal cannula oxygen Home O2 evaluation -- Pneumonia Current Visit: Yes Status: Acute Plan to address problem: Follow-up chest x-ray worsening bilateral infiltrates Continue oxygen and supportive care -- severe sepsis Remains hypoxic likely due to bilateral pneumonia Continue IV antibiotics --Abdominal Pain; acute gastritis supportive care, abdominal ultrasound, possible GI consult if no improvement --DVT prophylaxis Current Visit: Yes Status: Acute Plan to address problem: High-dose Lovenox Monitor closely and adjust the management as needed Plan of care reviewed with the patient and her nurse as well as the case management Consults and recommendations noted and appreciated Evaluate for home oxygen Possible discharge home tomorrow if stable and if oxygen concentrator is available Consults and recommendations noted and appreciated DC planning per case management 50 YO Female with Obesity Hypoventilation Syndrome presents to ED for bennett ruano. Patient states that she has "been feeling sick" for the past 2 weeks with persistent symptoms over the same timeframe. Patient was seen and evaluated by her primary care physician and treated with oral antibiotics for outpatient pneumonia. Patient states that she has experienced persistent symptoms in spite of of compliance with medication. Patient reports fever, dry cough, shortness of breath, decreased exercise tolerance, nausea, multiple episodes of vomiting, multiple loose stools, loss of sense of smell, loss of sense of taste, fatigue, malaise, body aches. Patient transported to [facility] via private vehicle for further care and evaluation of the aforementioned symptoms. Patient seen and evaluated in the emergency department. All lab and imaging studies reviewed. Patient found to have a fever to 102.1 F, as well as a pulse oximetry of 88% with exertion on room air which is consistent with acute hypoxemic respiratory failure. Patient underwent chest x-ray which revealed bilateral pneumonia. Patient admitted to medical floor and initiated on pneumonia protocol as well as coronavirus protocol. Coronavirus PCR ordered in the emergency department and is pending at time of admission. Patient acknowledges fever, but denies chest pain, palpitation, skin rash, recent ill contacts, trauma, or known exposure to COVID-19. No medication listed at time of admission. No prior admission for review. 02/29/2020 Patient alert, awake. Having cough. Having mild shortness of breath at rest. Patient is on vapotherm, FIO2 100% and O2 saturation 90%. Patient switched to BIPAP. But patient not using it.Patient afebrile. No leukocytosis. Complaining headache at times.Patients [place] virus PCR is Positive. Patients chest xray done 02/24/20 reported Patchy bilateral pulmonary opacities are concerning for infection/pneumonia. 03/01/2020 03/01/2020 Patient on high flow oxygen and BiPAP 03/02/2020 Patient still on high flow oxygen and BiPAP 03/03/2020 Patient with worsening inflammatory markers Chest x-ray worsening with extensive consolidations Patient will be transferred to ICU 03/04/2020 Patient on high flow oxygen-40 L Worsening pulmonary alveolar infiltrates Possible intubation !05/07/19 On High flow oxygen 03/07/2020 Patient still on high flow oxygen Not intubated 03/08- on HFNC 03/10: Clinically showing some improvement as HFNC is improving. Continue weaning as tolerated 03/11: Continue supportive care, weaning oxygen as tolerated. Can transfer to 3rd floor if weaned off HFNC. 03/12: Patient respiratory meier continues to improve, did have some abdominal pain with FOOD, Will check LFT, ammonia, and Lipase and abdominal ultrasound, considering patient is 35% FIO2, will transfer to [facility]. 03/14; patient feels slightly better abdominal pain significantly improved Patient was on high flow oxygen for few days, currently on 4 L nasal cannula oxygen Wean and titrate to O2 sats more than 90% Check resting and ambulatory room air O2 sats, Case management for possible home health Possible discharge in 1 to 2 days if stable and if cleared by pulmonary 03/15: Initially was planning to discharge home on nasal cannula oxygen However patient's repeat x-ray l yesterday t showed worsening infiltrates, worsening shortness of breath We will closely monitor next 24 hours, and DC home if stable Resting O2 90%, ambulatory room air O2 83%, on 2 L of nasal cannula oxygen improved to 95% Recommended home oxygen, patient uninsured no resources, patient's family willing to pay for for the oxygen Patient will be discharged tomorrow if stable 03/17/2020; patient feels slightly better still hypoxic, oxygen is available however there is shortage of O2 concentrator Will check with case management about discharge plan, possible discharge home tomorrow if O2 concentrator and oxygen are set up 03/18/2020; patient is medically stable for discharge, hypoxic needs home oxygen, O2 is set up however oxygen concentrator is not available Case management processing, discharge when oxygen concentrator is available 03/19/2020; patient feels better, stable for discharge, awaiting home oxygen concentrator which is not available We will check with case management tomorrow and discharge if stable Patient is stable for discharge Waiting for oxygen concentrator History Interval history: I have seen and examined the patient at the bedside Patient feels better anxious to go home Still requiring nasal cannula oxygen Home oxygen is set up however oxygen concentrator not available Case management processing Vital signs noted Hospitalist Physical - Constitutional Vitals: Temp Pulse Resp BP Pulse Ox 98.5 F 83 18 97/51 94 03/19/20 05:18 03/19/20 05:18 03/19/20 06:03 03/19/20 05:18 03/19/20 05:18 General appearance: Present: no acute distress, well-nourished, obese - EENT Eyes: Present: PERRL, EOM intact - Neck Neck: Present: supple, normal ROM - Respiratory Respiratory effort: normal Respiratory: bilateral: diminished, negative: rales, rhonchi, wheezing - Cardiovascular Rhythm: regular Heart Sounds: Present: S1 & S2 - Extremities Extremities: no ischemia, No edema - Abdominal General gastrointestinal: soft, non-tender, non-distended, normal bowel sounds - Integumentary Integumentary: Present: clear, warm - Psychiatric Psychiatric: appropriate mood/affect, cooperative - Neurologic Neurologic: CNII-XII intact, moves all extremities HEART Score - HEART Score Troponin: Troponin T < 0.010 ng/mL (0.00-0.029) 02/28/20 16:03 Results - Labs CBC & Chem 7: 03/13/20 07:23 03/13/20 07:23 Labs: Laboratory Last Values WBC 12.2 K/mm3 (4.5-11.0) H 03/13/20 07:23 RBC 4.00 M/mm3 (3.65-5.03) 03/13/20 07:23 Hgb 12.0 gm/dl (10.1-14.3) 03/13/20 07:23 Hct 36.2 % (30.3-42.9) 03/13/20 07:23 MCV 90 fl (79-97) 03/13/20 07:23 MCH 30 pg (28-32) 03/13/20 07:23 MCHC 33 % (30-34) 03/13/20 07:23 RDW 13.8 % (13.2-15.2) 03/13/20 07:23 Plt Count 215 K/mm3 (140-440) 03/13/20 07:23 Lymph % (Auto) 7.9 % (13.4-35.0) L 03/07/20 04:22 Douglas % (Auto) 3.5 % (0.0-7.3) 03/07/20 04:22 Eos % (Auto) 0.9 % (0.0-4.3) 03/07/20 04:22 Baso % (Auto) 0.2 % (0.0-1.8) 03/07/20 04:22 Lymph # (Auto) 1.3 K/mm3 (1.2-5.4) 03/07/20 04:22 Douglas # (Auto) 0.6 K/mm3 (0.0-0.8) 03/07/20 04:22 Eos # (Auto) 0.2 K/mm3 (0.0-0.4) 03/07/20 04:22 Baso # (Auto) 0.0 K/mm3 (0.0-0.1) 03/07/20 04:22 Add Manual Diff Complete 03/04/20 06:06 Total Counted 100 03/04/20 06:06 Seg Neutrophils % 87.5 % (40.0-70.0) H 03/07/20 04:22 Seg Neuts % (Manual) 88.0 % (40.0-70.0) H 03/04/20 06:06 Lymphocytes % (Manual) 5.0 % (13.4-35.0) L 03/04/20 06:06 Reactive Lymphs % (Man) 1.0 % 03/04/20 06:06 Monocytes % (Manual) 4.0 % (0.0-7.3) 03/04/20 06:06 Eosinophils % (Manual) 1.0 % (0.0-4.3) 03/04/20 06:06 Metamyelocytes % 1.0 % 03/04/20 06:06 Nucleated RBC % Not Reportable 03/04/20 06:06 Seg Neutrophils # 14.5 K/mm3 (1.8-7.7) H 03/07/20 04:22 Seg Neutrophils # Man 15.1 K/mm3 (1.8-7.7) H 03/04/20 06:06 Band Neutrophils # 0.0 K/mm3 03/04/20 06:06 Lymphocytes # (Manual) 0.9 K/mm3 (1.2-5.4) L 03/04/20 06:06 Abs React Lymphs (Man) 0.2 K/mm3 03/04/20 06:06 Monocytes # (Manual) 0.7 K/mm3 (0.0-0.8) 03/04/20 06:06 Eosinophils # (Manual) 0.2 K/mm3 (0.0-0.4) 03/04/20 06:06 Basophils # (Manual) 0.0 K/mm3 (0.0-0.1) 03/04/20 06:06 Metamyelocytes # 0.2 K/mm3 03/04/20 06:06 Myelocytes # 0.0 K/mm3 03/04/20 06:06 Promyelocytes # 0.0 K/mm3 03/04/20 06:06 Blast Cells # 0.0 K/mm3 03/04/20 06:06 WBC Morphology Not Reportable 03/04/20 06:06 Hypersegmented Neuts Not Reportable 03/04/20 06:06 Hyposegmented Neuts Not Reportable 03/04/20 06:06 Hypogranular Neuts Not Reportable 03/04/20 06:06 Smudge Cells Not Reportable 03/04/20 06:06 Toxic Granulation Not Reportable 03/04/20 06:06 Toxic Vacuolation Not Reportable 03/04/20 06:06 Dohle Bodies Not Reportable 03/04/20 06:06 Pelger-Huet Anomaly Not Reportable 03/04/20 06:06 Mian Rods Not Reportable 03/04/20 06:06 Platelet Estimate Consistent w auto 03/04/20 06:06 Clumped Platelets Not Reportable 03/04/20 06:06 Plt Clumps, EDTA Not Reportable 03/04/20 06:06 Large Platelets Not Reportable 03/04/20 06:06 Giant Platelets Not Reportable 03/04/20 06:06 Platelet Satelliting Not Reportable 03/04/20 06:06 Plt Morphology Comment Not Reportable 03/04/20 06:06 RBC Morphology Normal 03/04/20 06:06 Dimorphic RBCs Not Reportable 03/04/20 06:06 Polychromasia Not Reportable 03/04/20 06:06 Hypochromasia Not Reportable 03/04/20 06:06 Poikilocytosis Not Reportable 03/04/20 06:06 Anisocytosis Not Reportable 03/04/20 06:06 Microcytosis Not Reportable 03/04/20 06:06 Macrocytosis Not Reportable 03/04/20 06:06 Spherocytes Not Reportable 03/04/20 06:06 Pappenheimer Bodies Not Reportable 03/04/20 06:06 Sickle Cells Not Reportable 03/04/20 06:06 Target Cells Not Reportable 03/04/20 06:06 Tear Drop Cells Not Reportable 03/04/20 06:06 Ovalocytes Not Reportable 03/04/20 06:06 Helmet Cells Not Reportable 03/04/20 06:06 [place] Bodies Not Reportable 03/04/20 06:06 [place] Rings Not Reportable 03/04/20 06:06 Nunu Cells Not Reportable 03/04/20 06:06 Bite Cells Not Reportable 03/04/20 06:06 Crenated Cell Not Reportable 03/04/20 06:06 Elliptocytes Not Reportable 03/04/20 06:06 Acanthocytes (Spur) Not Reportable 03/04/20 06:06 Rouleaux Not Reportable 03/04/20 06:06 Hemoglobin C Crystals Not Reportable 03/04/20 06:06 Schistocytes Not Reportable 03/04/20 06:06 Malaria parasites Not Reportable 03/04/20 06:06 Jesus Bodies Not Reportable 03/04/20 06:06 Hem Pathologist Commnt No 03/04/20 06:06 D-Dimer 1170.89 ng/mlDDU (0-234) H 03/05/20 16:48 ABG pH 7.439 pH Units (7.350-7.450) 03/06/20 09:40 POC ABG pCO2 40.0 mmHg (32.0-48.0) 03/01/20 08:53 ABG pCO2 36.8 mm Hg 03/06/20 09:40 POC ABG pO2 71.9 mmHg (83-108) L 03/01/20 08:53 ABG pO2 77.4 mm Hg (80.0-90.0) L 03/06/20 09:40 POC ABG HCO3 28.0 03/01/20 08:53 ABG HCO3 24.4 mmol/L (20.0-26.0) 03/06/20 09:40 ABG O2 Saturation 96.0 % (95.0-99.0) 03/06/20 09:40 ABG O2 Content 18.4 (0.0-44) 03/06/20 09:40 POC ABG Base Excess 4.0 03/01/20 08:53 ABG Base Excess 0.5 mmol/L (-2.0-3.0) 03/06/20 09:40 ABG Hemoglobin 13.8 gm/dl (12.0-16.0) 03/06/20 09:40 ABG Oxyhemoglobin 94.1 (94-98) 03/01/20 08:53 ABG Carboxyhemoglobin 1.1 % (0.0-5.0) 03/06/20 09:40 ABG Methemoglobin 0.4 % (0.0-1.5) 03/06/20 09:40 ABG Sodium 139.8 mmol/L (136.0-145.0) 03/01/20 08:53 ABG Potassium 3.9 mmol/L (3.40-4.50) 03/01/20 08:53 ABG Chloride 105.0 mmol/L (98-107) 03/01/20 08:53 ABG Glucose 147 mg/dL (65-95) H 03/01/20 08:53 Oxyhemoglobin 94.5 % (95.0-99.0) L 03/06/20 09:40 Carboxyhemoglobin 0.2 (0.5-1.5) L 03/01/20 08:53 FiO2 100 % 03/06/20 09:40 Sodium 136 mmol/L (137-145) L 03/13/20 07:23 Potassium 3.6 mmol/L (3.6-5.0) 03/13/20 07:23 Chloride 101.3 mmol/L (98-107) 03/13/20 07:23 Carbon Dioxide 27 mmol/L (22-30) 03/13/20 07:23 Anion Gap 11 mmol/L 03/13/20 07:23 BUN 20 mg/dL (7-17) H 03/13/20 07:23 Creatinine 0.5 mg/dL (0.6-1.2) L 03/13/20 07:23 Estimated GFR > 60 ml/min 03/13/20 07:23 BUN/Creatinine Ratio 40 % 03/13/20 07:23 Glucose 88 mg/dL (65-100) 03/13/20 07:23 POC Glucose 92 mg/dL (70-105) 03/19/20 08:07 Lactic Acid 1.00 mmol/L (0.7-2.0) 02/24/20 14:31 Calcium 8.9 mg/dL (8.4-10.2) 03/13/20 07:23 Ferritin 319.4 ng/mL (10.0-200.0) H 03/10/20 15:34 Total Bilirubin 0.20 mg/dL (0.1-1.2) 03/13/20 07:23 Direct Bilirubin < 0.2 mg/dL (0-0.2) 03/12/20 10:19 Indirect Bilirubin 0.0 mg/dL 03/12/20 10:19 AST 23 units/L (5-40) 03/13/20 07:23 ALT 51 units/L (7-56) 03/13/20 07:23 Alkaline Phosphatase 66 units/L (35-129) 03/13/20 07:23 Lactate Dehydrogenase 619 units/L (91-180) H 03/05/20 16:48 Troponin T < 0.010 ng/mL (0.00-0.029) 02/28/20 16:03 C-Reactive Protein 0.30 mg/dL (0.00-1.30) 03/10/20 15:34 NT-Pro-B Natriuret Pep 47.67 pg/mL (0-450) 03/02/20 16:51 Total Protein 6.1 g/dL (6.3-8.2) L 03/13/20 07:23 Albumin 3.1 g/dL (3.9-5) L 03/13/20 07:23 Albumin/Globulin Ratio 1.0 % 03/13/20 07:23 Lipase 68 units/L (13-60) H 03/14/20 04:40 Procalcitonin < 0.05 ng/mL (<0.15) 02/25/20 14:21 Arterial Blood Glucose 147 mg/dL (65-95) H 03/01/20 08:53 Arterial Blood Ionized Calcium 4.7 mg/dL (4.6-5.3) 03/01/20 08:53 Urine Color Yellow (Yellow) 02/24/20 Unknown Urine Turbidity Clear (Clear) 02/24/20 Unknown Urine pH 6.0 (5.0-7.0) 02/24/20 Unknown Ur Specific [place] 1.023 (1.003-1.030) 02/24/20 Unknown Urine Protein 100 mg/dl mg/dL (Negative) 02/24/20 Unknown Urine Glucose (UA) Neg mg/dL (Negative) 02/24/20 Unknown Urine Ketones Neg mg/dL (Negative) 02/24/20 Unknown Urine Blood Neg (Negative) 02/24/20 Unknown Urine Nitrite Neg (Negative) 02/24/20 Unknown Urine Bilirubin Neg (Negative) 02/24/20 Unknown Urine Urobilinogen 2.0 mg/dL (<2.0) 02/24/20 Unknown Ur Leukocyte Esterase Neg (Negative) 02/24/20 Unknown Urine WBC (Auto) 4.0 /HPF (0.0-6.0) 02/24/20 Unknown Urine RBC (Auto) 2.0 /HPF (0.0-6.0) 02/24/20 Unknown U Epithel Cells (Auto) 3.0 /HPF (0-13.0) 02/24/20 Unknown Urine Bacteria (Auto) 1+ /HPF (Negative) 02/24/20 Unknown Urine Mucus 1+ /HPF 02/24/20 Unknown Coronavirus (PCR) Positive (Negative) A 02/26/20 10:45 SARS-CoV-2 IgG Ab Reactive (NonReactive) A 02/28/20 16:03 - Diagnostic Impressions Diagnostic Impressions: Echocardiogram 03/01/20 09:12 Transthoracic Echocardiogram Indication: Eval EF; PA HTN BP: 121/78 HR: 90 Conclusions *Global left ventricular systolic function is normal. *The estimated ejection fraction is 60-65%. *The right ventricular global systolic function is normal. *There is no evidence of aortic regurgitation. *There is trace of mitral regurgitation. *There is trace tricuspid regurgitation. *The right ventricular systolic pressure is calculated at 28 mmHg. *There is trace pulmonic regurgitation. Findings Left Ventricle: The left ventricular chamber size is normal. There is no left ventricular hypertrophy. Global left ventricular wall motion and contractility are within normal limits. Global left ventricular systolic function is normal. The estimated ejection fraction is 60-65%. There is an E to A reversal in the mitral valve flow pattern suggestive of diastolic dysfunction. Left Atrium: The left atrial chamber size is normal. Right Ventricle: The right ventricular cavity size is normal. The right ventricular global systolic function is normal. Right Atrium: The right atrial cavity size is normal. Aortic Valve: There is no evidence of aortic valve thickening. There is no evidence of aortic regurgitation. Mitral Valve: The mitral valve leaflets do not appear thickened. There is trace of mitral regurgitation. Tricuspid Valve: The tricuspid valve leaflets are normal. There is trace tricuspid regurgitation. The right ventricular systolic pressure is calculated at 28 mmHg. Pulmonic Valve: There is no evidence of pulmonic valve thickening. There is trace pulmonic regurgitation. Pericardium: There is no pericardial effusion. Aorta: The aorta appears normal. Venous: The inferior vena cava appears normal in size. Measurements Chambers 2D Name Value Normal Range IVSd (2D) 0.97 cm (0.6 - 1.1) LVPWd (2D) 1.05 cm (0.6 - 1.1) LVIDd (2D) 3.87 cm (3.7 - 5.6) LVIDs (2D) 2.41 cm (2 - 3.8) LV FS (2D) 37.69 % - EF Teichholz (2D) 68.47 % - Ao root diameter (2D) 2.92 cm (2 - 3.7) Volumes/Mass Name Value Normal Range LA ESV SP 4CH (A/L) 32.2 ml - LA ESV SP 2CH (A/L) 24.78 ml - LA ESV BP (A/L) 29.52 ml - LA ESV BP (A/L) index 16.68 ml/m2 - LA ESV SP 4CH (MOD) 29.62 ml - LA ESV SP 2CH (MOD) 23.68 ml - LA ESV BP (MOD) 27.57 ml - LA ESV BP (MOD) index 15.58 ml/m2 - Diastolic/Systolic Function Name Value Normal Range MV E-wave Vmax 0.59 m/sec - MV deceleration time 258.54 msec - MV A-wave Vmax 0.73 m/sec - MV E:A ratio 0.81 ratio - Aortic Valve Name Value Normal Range AV Vmax 1.33 m/sec - AV VTI 22.87 cm - AV peak gradient 7.09 mmHg - AV mean gradient 4.39 mmHg - LVOT diameter 1.52 cm - LVOT Vmax 1.22 m/sec - LVOT VTI 20.85 cm - LVOT peak gradient 5.96 mmHg - LVOT mean gradient 2.91 mmHg - SV LVOT 37.79 ml - VINEET (continuity Vmax) 1.66 cm2 - VINEET (continuity VTI) 1.65 cm2 - Ascending Ao 2.78 cm - Tricuspid Valve Name Value Normal Range TR Vmax 2.48 m/sec - TR peak gradient 25 mmHg - RAP 3 mmHg - RVSP 28 mmHg - IVC diameter 1.77 cm (1.2 - 2.3) Pulmonic Valve/Qp:Qs Name Value Normal Range PV Vmax 0.85 m/sec - PV peak gradient 2.9 mmHg - AL end-diastolic Vmax 1.26 m/sec - PV acceleration time 144.62 msec - [place]/IV: Voiding Method Toilet IV Catheter Type [Right Peripheral IV Forearm] IV Catheter Type [Right Peripheral IV Antecubital] Active Medications - Current Medications Current Medications: Generic Name Dose Route Start Last Admin Trade Name Freq PRN Reason Stop Dose Admin Acetaminophen 650 mg 02/24/20 15:14 03/19/20 06:03 Acetaminophen 325 Mg Tab PO 650 mg Q4H PRN Administration Pain MILD(1-3)/Fever >100.5/DANGELO Albuterol 2.5 mg 02/24/20 15:14 Albuterol 2.5 Mg/3 Ml Nebu IH Q4HRT PRN Shortness Of Breath Ascorbic Acid 1,000 mg 02/29/20 23:45 03/18/20 22:16 Ascorbic Acid 500 Mg Tab PO 1,000 mg BID UTE Administration Benzonatate 100 mg 02/25/20 22:00 03/18/20 22:16 Benzonatate 100 Mg Cap PO 100 mg BID UTE Administration Cholecalciferol 5,000 unit 03/01/20 10:00 03/18/20 10:52 Cholecalciferol (Vit D3) 5,000 Unit Tab PO 5,000 unit DAILY UTE Administration Enoxaparin Sodium 40 mg 03/19/20 22:00 Enoxaparin 40 Mg/0.4 Ml Inj SUB-Q QDAY@2200 [facility] Protocol Famotidine 10 mg 03/13/20 23:00 03/18/20 22:17 Famotidine 20 Mg Tab PO 10 mg BID UTE Administration Hydrocodone Bit/Homatropine Methylb 10 ml 02/26/20 15:00 03/18/20 04:06 Hydrocodone/Homatropine 5-1.5mg /5 Ml Oral Liqd Unit Dose PO 10 ml Q6H PRN Administration Cough Morphine Sulfate 2 mg 03/11/20 19:35 03/13/20 10:41 Morphine 2 Mg/1 Ml Inj IV 2 mg Q4H PRN Administration Pain, Moderate (4-6) Ondansetron HCl 4 mg 02/24/20 15:14 Ondansetron 4 Mg/2 Ml Inj IV Q8H PRN Nausea And Vomiting Sodium Chloride 10 ml 02/24/20 22:00 03/18/20 22:17 Sodium Chloride 0.9% 10 Ml Flush Syringe IV 10 ml BID UTE Administration Sodium Chloride 10 ml 02/24/20 15:14 Sodium Chloride 0.9% 10 Ml Flush Syringe IV PRN PRN LINE FLUSH Tramadol HCl 50 mg 02/29/20 22:10 03/18/20 22:17 Tramadol 50 Mg Tab PO 50 mg Q6H PRN Administration Pain, Moderate (4-6) Nutrition/Malnutrition Assess - Dietary Evaluation Nutrition/Malnutrition Findings: Nutrition Notes Start: 03/02/20 12:47 Freq: Status: Active Protocol: Document 03/02/20 12:47 EN (Rec: 03/02/20 12:53 EN [email or web address]) Co-Sign 03/02/20 12:47 MK Nutrition Notes Need for Assessment generated from: LOS Initial or Follow up Brief Note Current Diagnosis Sepsis Other Pertinent Diagnosis COVID-19+, Pneu, acute respiratory failure Current Diet Cardiac [place] Body Weight (kg) 0 Subjective/Other Information Pt screened for LOS. Unable to reach pt by phone x2 for assessment. RN unsure of current PO intakes for today but states pt has not had any N/V/D. Per chart, 100% meal consumption consistently Nutrition Intervention Anticipated Discharge Needs: Cardiac diet Revisit per MD consult or patient Sign Off request:
[2020-03-19] MEDS: ENOXAPARIN 80 MG/0.8 ML INJ SUB-Q SCH (10:48)
[2020-03-19] MEDS: CHOLECALCIFEROL (VIT D3) 5,000 UNIT TAB PO SCH (10:49)
[2020-03-19] MEDS: ASCORBIC ACID 500 MG TAB PO SCH ×2 (10:49→22:23)
[2020-03-19] MEDS: FAMOTIDINE 20 MG TAB PO SCH ×2 (10:49→22:19)
[2020-03-19] MEDS: BENZONATATE 100 MG CAP PO SCH ×2 (10:49→22:21)
[2020-03-19] MEDS: HYDROcodone/HOMATROPINE 5-1.5MG /5 ML ORAL LIQD UNIT DOSE PO PRN (13:40)
--- NOTE | 2020-03-19 15:04 | Progress Note ---
Assessment and Plan Patient alert, awake. Still complaining, cough and shortness of breath. Patient also complains chest pain with cough.Patients O2 requirements came down . Patient is on 2 litres o2. O2 saturation running 97%. Patient afebrile. Has mild leukocytosis. Patients Huyn[place] virus PCR is Positive. Patients chest xray done 02/24/20 reported Patchy bilateral pulmonary opacities are concerning for infection/pneumonia. Atypical/viral etiologies should be considered. Patients inflammatory markers Ferritin 319.4 LDH 68 C reactive protein .3 Troponin .01 D Dimer 1170.89 Patient was on REMDESIVIR.Finished course of REMDESIVIR. Patient presently on Methyl prednisone and S/C Lovenox 80 mg q 12 hours. Patient has CTA of chest 02/29/[address] evidence for pulmonary embolism. Diffuse bilateral airspace disease. The imaging appearance is nonspecific and could be seen in the setting of bacterial pneumonia or atypical/viral etiologies. There is mild mediastinal adenopathy. No associated effusions. Patients repeat chest xray 03/14/20 reported Mild worsening of patchy bilateral pulmonary opacity since the prior study. Patient has venous doppler studies of legs 02/29/20 reported No sonographic evidence for DVT in either lower extremity. ABG on 100% FIO2. ABG pH 7.463 (7.320-7.450) H 03/01/20 08:53 POC ABG pCO2 40.0 mmHg (32.0-48.0) 03/01/20 08:53 POC ABG pO2 71.9 mmHg (83-108) L 03/01/20 08:53 POC ABG HCO3 28.0 03/01/20 08:53 Recommend ABgs on room air. - Patient Problems (1) Acute hypoxemic respiratory failure Current Visit: Yes Status: Acute Plan to address problem: Patient is on O2 2 litres via nasal canula. Albuterol inhaler. S/C Lovenox (2) Obesity hypoventilation syndrome Current Visit: Yes Status: Acute Plan to address problem: Recommend to loose weight. ABG on 100% FIO2. ABG pH 7.463 (7.320-7.450) H 03/01/20 08:53 POC ABG pCO2 40.0 mmHg (32.0-48.0) 03/01/20 08:53 POC ABG pO2 71.9 mmHg (83-108) L 03/01/20 08:53 POC ABG HCO3 28.0 03/01/20 08:53 ABG results not suggestive of Obesity hypoventilation. Recommend sleep study as out patient. Recommend to repeat ABGs on room air. (3) Pneumonia Current Visit: Yes Status: Acute Qualifiers: Laterality: bilateral Plan to address problem: Patient was on REMDESIVIR and Methyl prednisone Antibiotics as per infectious diseases. (4) Coronavirus infection Current Visit: Yes Status: Acute Plan to address problem: Patients Huyn[place] virus PCR is positive. Patient finished course of REMDESIVIR and Methyl prednisone. Subjective Date of service: 03/19/20 Principal diagnosis: PUI COVID-19; Ac hypoxemic resp failure; Severe sepsis; Pn eumonia; Obesity Interval history: Patient alert, awake. Still complaining, cough and shortness of breath. Patient also complains chest pain with cough.Patients O2 requirements came down . Patient is on 2 litres o2. O2 saturation running 97%. Patient afebrile. Has mild leukocytosis. Patients Huynh virus PCR is Positive. Patients chest xray done 02/24/20 reported Patchy bilateral pulmonary opacities are concerning for infection/pneumonia. Atypical/viral etiologies should be considered. Patients inflammatory markers Ferritin 319.4 LDH 68 C reactive protein .3 Troponin .01 D Dimer 1170.89 Patient was on REMDESIVIR.Finished course of REMDESIVIR. Patient presently on Methyl prednisone and S/C Lovenox 80 mg q 12 hours. Patient has CTA of chest 02/29/[address] evidence for pulmonary embolism. Diffuse bilateral airspace disease. The imaging appearance is nonspecific and could be seen in the setting of bacterial pneumonia or atypical/viral etiologies. There is mild mediastinal adenopathy. No associated effusions. Patients repeat chest xray 03/14/20 reported Mild worsening of patchy bilateral pulmonary opacity since the prior study. Patient has venous doppler studies of legs 02/29/20 reported No sonographic evidence for DVT in either lower extremity. ABG on 100% FIO2. ABG pH 7.463 (7.320-7.450) H 03/01/20 08:53 POC ABG pCO2 40.0 mmHg (32.0-48.0) 03/01/20 08:53 POC ABG pO2 71.9 mmHg (83-108) L 03/01/20 08:53 POC ABG HCO3 28.0 03/01/20 08:53 Recommend ABgs on room air. Objective Vital Signs - 12hr 03/19/20 03/19/20 03/19/20 05:18 06:03 10:00 Temperature 98.5 F Pulse Rate 83 Pulse Rate [ 97 H Right Radial] Respiratory 17 18 18 Rate Blood Pressure 97/51 O2 Sat by Pulse 94 96 Oximetry 03/19/20 11:54 Temperature Pulse Rate Pulse Rate [ Right Radial] Respiratory Rate Blood Pressure O2 Sat by Pulse 97 Oximetry Constitutional: no acute distress, alert, other (Having cough) Eyes: non-icteric ENT: oropharynx moist Neck: supple, no lymphadenopathy Effort: mildly labored Ascultation: Bilateral: rales (bases), rhonchi Percussion: Bilateral: not dull Cardiovascular: regular rate and rhythm Gastrointestinal: normoactive bowel sounds, soft, non-tender Integumentary: normal Extremities: no cyanosis, no edema Neurologic: non-focal exam, pupils equal and round Psychiatric: mood appropriate CBC and BMP: 03/13/20 07:23 03/13/20 07:23 ABG, PT/INR, D-dimer: ABG ABG pH 7.439 pH Units (7.350-7.450) 03/06/20 09:40 POC ABG pCO2 40.0 mmHg (32.0-48.0) 03/01/20 08:53 ABG pCO2 36.8 mm Hg 03/06/20 09:40 POC ABG pO2 71.9 mmHg (83-108) L 03/01/20 08:53 ABG pO2 77.4 mm Hg (80.0-90.0) L 03/06/20 09:40 POC ABG HCO3 28.0 03/01/20 08:53 ABG O2 Saturation 96.0 % (95.0-99.0) 03/06/20 09:40 PT/INR, D-dimer D-Dimer 1170.89 ng/mlDDU (0-234) H 03/05/20 16:48 Abnormal lab findings: Abnormal Labs 02/24/20 02/24/20 02/24/20 12:07 12:07 12:07 WBC RBC MCHC 35 H Lymph % (Auto) Lymph # (Auto) Seg Neutrophils % 76.6 H Seg Neuts % (Manual) Lymphocytes % (Manual) Seg Neutrophils # Seg Neutrophils # Man Lymphocytes # (Manual) Monocytes # (Manual) D-Dimer 236.88 H ABG pH POC ABG pO2 ABG pO2 ABG O2 Saturation ABG Glucose Oxyhemoglobin Carboxyhemoglobin Sodium Potassium 3.4 L Chloride BUN Creatinine Glucose POC Glucose Ferritin AST 42 H ALT Alkaline Phosphatase Lactate Dehydrogenase C-Reactive Protein Total Protein Albumin Lipase Arterial Blood Glucose Coronavirus (PCR) SARS-CoV-2 IgG Ab 02/24/20 02/24/20 02/25/20 12:07 12:07 05:16 WBC RBC 3.53 L MCHC Lymph % (Auto) Lymph # (Auto) 1.1 L Seg Neutrophils % 75.0 H Seg Neuts % (Manual) Lymphocytes % (Manual) Seg Neutrophils # Seg Neutrophils # Man Lymphocytes # (Manual) Monocytes # (Manual) D-Dimer ABG pH POC ABG pO2 ABG pO2 ABG O2 Saturation ABG Glucose Oxyhemoglobin Carboxyhemoglobin Sodium Potassium Chloride BUN Creatinine Glucose 101 H POC Glucose Ferritin 200.8 H AST ALT Alkaline Phosphatase Lactate Dehydrogenase 315 H C-Reactive Protein 12.00 H Total Protein Albumin Lipase Arterial Blood Glucose Coronavirus (PCR) SARS-CoV-2 IgG Ab 02/25/20 02/25/20 02/25/20 05:16 08:21 11:52 WBC RBC MCHC Lymph % (Auto) Lymph # (Auto) Seg Neutrophils % Seg Neuts % (Manual) Lymphocytes % (Manual) Seg Neutrophils # Seg Neutrophils # Man Lymphocytes # (Manual) Monocytes # (Manual) D-Dimer ABG pH POC ABG pO2 ABG pO2 ABG O2 Saturation ABG Glucose Oxyhemoglobin Carboxyhemoglobin Sodium Potassium Chloride 109.8 H BUN Creatinine 0.4 L Glucose 143 H POC Glucose 123 H 133 H Ferritin AST ALT Alkaline Phosphatase Lactate Dehydrogenase C-Reactive Protein Total Protein Albumin Lipase Arterial Blood Glucose Coronavirus (PCR) SARS-CoV-2 IgG Ab 02/25/20 02/25/20 02/25/20 14:21 14:21 14:21 WBC RBC MCHC Lymph % (Auto) Lymph # (Auto) Seg Neutrophils % Seg Neuts % (Manual) Lymphocytes % (Manual) Seg Neutrophils # Seg Neutrophils # Man Lymphocytes # (Manual) Monocytes # (Manual) D-Dimer 396.96 H ABG pH POC ABG pO2 ABG pO2 ABG O2 Saturation ABG Glucose Oxyhemoglobin Carboxyhemoglobin Sodium Potassium Chloride BUN Creatinine Glucose 163 H POC Glucose Ferritin 335.1 H AST ALT Alkaline Phosphatase Lactate Dehydrogenase 406 H C-Reactive Protein 6.10 H Total Protein Albumin Lipase Arterial Blood Glucose Coronavirus (PCR) SARS-CoV-2 IgG Ab 02/25/20 02/25/20 02/26/20 16:17 22:45 07:55 WBC RBC MCHC Lymph % (Auto) Lymph # (Auto) Seg Neutrophils % Seg Neuts % (Manual) Lymphocytes % (Manual) Seg Neutrophils # Seg Neutrophils # Man Lymphocytes # (Manual) Monocytes # (Manual) D-Dimer ABG pH POC ABG pO2 ABG pO2 ABG O2 Saturation ABG Glucose Oxyhemoglobin Carboxyhemoglobin Sodium Potassium Chloride BUN Creatinine Glucose POC Glucose 124 H 154 H 124 H Ferritin AST ALT Alkaline Phosphatase Lactate Dehydrogenase C-Reactive Protein Total Protein Albumin Lipase Arterial Blood Glucose Coronavirus (PCR) SARS-CoV-2 IgG Ab 02/26/20 02/26/20 02/26/20 10:45 12:10 16:51 WBC RBC MCHC Lymph % (Auto) Lymph # (Auto) Seg Neutrophils % Seg Neuts % (Manual) Lymphocytes % (Manual) Seg Neutrophils # Seg Neutrophils # Man Lymphocytes # (Manual) Monocytes # (Manual) D-Dimer ABG pH POC ABG pO2 ABG pO2 ABG O2 Saturation ABG Glucose Oxyhemoglobin Carboxyhemoglobin Sodium Potassium Chloride BUN Creatinine Glucose POC Glucose 121 H 129 H Ferritin AST ALT Alkaline Phosphatase Lactate Dehydrogenase C-Reactive Protein Total Protein Albumin Lipase Arterial Blood Glucose Coronavirus (PCR) Positive A SARS-CoV-2 IgG Ab 02/26/20 02/27/20 02/27/20 22:00 07:58 12:04 WBC RBC MCHC Lymph % (Auto) Lymph # (Auto) Seg Neutrophils % Seg Neuts % (Manual) Lymphocytes % (Manual) Seg Neutrophils # Seg Neutrophils # Man Lymphocytes # (Manual) Monocytes # (Manual) D-Dimer ABG pH POC ABG pO2 ABG pO2 ABG O2 Saturation ABG Glucose Oxyhemoglobin Carboxyhemoglobin Sodium Potassium Chloride BUN Creatinine Glucose POC Glucose 134 H 115 H 146 H Ferritin AST ALT Alkaline Phosphatase Lactate Dehydrogenase C-Reactive Protein Total Protein Albumin Lipase Arterial Blood Glucose Coronavirus (PCR) SARS-CoV-2 IgG Ab 02/27/20 02/28/20 02/28/20 17:21 16:03 16:03 WBC RBC MCHC Lymph % (Auto) Lymph # (Auto) Seg Neutrophils % Seg Neuts % (Manual) Lymphocytes % (Manual) Seg Neutrophils # Seg Neutrophils # Man Lymphocytes # (Manual) Monocytes # (Manual) D-Dimer 995.51 H ABG pH POC ABG pO2 ABG pO2 ABG O2 Saturation ABG Glucose Oxyhemoglobin Carboxyhemoglobin Sodium Potassium Chloride BUN Creatinine Glucose POC Glucose 136 H Ferritin 464.3 H AST ALT Alkaline Phosphatase Lactate Dehydrogenase C-Reactive Protein Total Protein Albumin Lipase Arterial Blood Glucose Coronavirus (PCR) SARS-CoV-2 IgG Ab 02/28/20 02/28/20 02/28/20 16:03 16:03 16:03 WBC RBC MCHC Lymph % (Auto) Lymph # (Auto) Seg Neutrophils % Seg Neuts % (Manual) Lymphocytes % (Manual) Seg Neutrophils # Seg Neutrophils # Man Lymphocytes # (Manual) Monocytes # (Manual) D-Dimer ABG pH POC ABG pO2 ABG pO2 ABG O2 Saturation ABG Glucose Oxyhemoglobin Carboxyhemoglobin Sodium Potassium Chloride BUN 23 H Creatinine 0.4 L Glucose 120 H POC Glucose Ferritin AST 72 H ALT 117 H Alkaline Phosphatase 137 H Lactate Dehydrogenase 779 H C-Reactive Protein 6.10 H Total Protein Albumin 3.0 L Lipase Arterial Blood Glucose Coronavirus (PCR) SARS-CoV-2 IgG Ab Reactive A 02/28/20 02/29/20 02/29/20 22:06 07:38 11:11 WBC RBC MCHC Lymph % (Auto) Lymph # (Auto) Seg Neutrophils % Seg Neuts % (Manual) Lymphocytes % (Manual) Seg Neutrophils # Seg Neutrophils # Man Lymphocytes # (Manual) Monocytes # (Manual) D-Dimer ABG pH POC ABG pO2 ABG pO2 ABG O2 Saturation ABG Glucose Oxyhemoglobin Carboxyhemoglobin Sodium Potassium Chloride BUN Creatinine Glucose POC Glucose 119 H 121 H 129 H Ferritin AST ALT Alkaline Phosphatase Lactate Dehydrogenase C-Reactive Protein Total Protein Albumin Lipase Arterial Blood Glucose Coronavirus (PCR) SARS-CoV-2 IgG Ab 02/29/20 02/29/20 03/01/20 15:58 22:02 05:23 WBC RBC MCHC Lymph % (Auto) Lymph # (Auto) Seg Neutrophils % Seg Neuts % (Manual) Lymphocytes % (Manual) Seg Neutrophils # Seg Neutrophils # Man Lymphocytes # (Manual) Monocytes # (Manual) D-Dimer 1841.84 H ABG pH POC ABG pO2 ABG pO2 ABG O2 Saturation ABG Glucose Oxyhemoglobin Carboxyhemoglobin Sodium Potassium Chloride BUN Creatinine Glucose POC Glucose 118 H 141 H Ferritin AST ALT Alkaline Phosphatase Lactate Dehydrogenase C-Reactive Protein Total Protein Albumin Lipase Arterial Blood Glucose Coronavirus (PCR) SARS-CoV-2 IgG Ab 03/01/20 03/01/20 03/01/20 05:23 05:23 05:23 WBC 17.6 H RBC MCHC Lymph % (Auto) Lymph # (Auto) Seg Neutrophils % Seg Neuts % (Manual) 96.0 H Lymphocytes % (Manual) 2.0 L Seg Neutrophils # Seg Neutrophils # Man 16.9 H Lymphocytes # (Manual) 0.4 L Monocytes # (Manual) D-Dimer ABG pH POC ABG pO2 ABG pO2 ABG O2 Saturation ABG Glucose Oxyhemoglobin Carboxyhemoglobin Sodium Potassium Chloride BUN 19 H Creatinine 0.3 L Glucose 145 H POC Glucose Ferritin 323.9 H AST ALT 63 H Alkaline Phosphatase 132 H Lactate Dehydrogenase 746 H C-Reactive Protein 6.80 H Total Protein Albumin 2.9 L Lipase Arterial Blood Glucose Coronavirus (PCR) SARS-CoV-2 IgG Ab 03/01/20 03/01/20 03/01/20 06:30 08:53 11:07 WBC RBC MCHC Lymph % (Auto) Lymph # (Auto) Seg Neutrophils % Seg Neuts % (Manual) Lymphocytes % (Manual) Seg Neutrophils # Seg Neutrophils # Man Lymphocytes # (Manual) Monocytes # (Manual) D-Dimer ABG pH 7.463 H POC ABG pO2 71.9 L ABG pO2 ABG O2 Saturation ABG Glucose 147 H Oxyhemoglobin Carboxyhemoglobin 0.2 L Sodium Potassium Chloride BUN Creatinine Glucose POC Glucose 132 H 126 H Ferritin AST ALT Alkaline Phosphatase Lactate Dehydrogenase C-Reactive Protein Total Protein Albumin Lipase Arterial Blood Glucose 147 H Coronavirus (PCR) SARS-CoV-2 IgG Ab 03/01/20 03/01/20 03/02/20 15:50 21:24 08:08 WBC RBC MCHC Lymph % (Auto) Lymph # (Auto) Seg Neutrophils % Seg Neuts % (Manual) Lymphocytes % (Manual) Seg Neutrophils # Seg Neutrophils # Man Lymphocytes # (Manual) Monocytes # (Manual) D-Dimer ABG pH POC ABG pO2 ABG pO2 ABG O2 Saturation ABG Glucose Oxyhemoglobin Carboxyhemoglobin Sodium Potassium Chloride BUN Creatinine Glucose POC Glucose 122 H 142 H 152 H Ferritin AST ALT Alkaline Phosphatase Lactate Dehydrogenase C-Reactive Protein Total Protein Albumin Lipase Arterial Blood Glucose Coronavirus (PCR) SARS-CoV-2 IgG Ab 03/02/20 03/02/20 03/02/20 11:41 16:51 21:56 WBC RBC MCHC Lymph % (Auto) Lymph # (Auto) Seg Neutrophils % Seg Neuts % (Manual) Lymphocytes % (Manual) Seg Neutrophils # Seg Neutrophils # Man Lymphocytes # (Manual) Monocytes # (Manual) D-Dimer ABG pH POC ABG pO2 ABG pO2 ABG O2 Saturation ABG Glucose Oxyhemoglobin Carboxyhemoglobin Sodium Potassium Chloride BUN Creatinine Glucose POC Glucose 136 H 137 H 126 H Ferritin AST ALT Alkaline Phosphatase Lactate Dehydrogenase C-Reactive Protein Total Protein Albumin Lipase Arterial Blood Glucose Coronavirus (PCR) SARS-CoV-2 IgG Ab 03/03/20 03/03/20 03/03/20 08:05 13:10 19:32 WBC RBC MCHC Lymph % (Auto) Lymph # (Auto) Seg Neutrophils % Seg Neuts % (Manual) Lymphocytes % (Manual) Seg Neutrophils # Seg Neutrophils # Man Lymphocytes # (Manual) Monocytes # (Manual) D-Dimer ABG pH POC ABG pO2 ABG pO2 ABG O2 Saturation ABG Glucose Oxyhemoglobin Carboxyhemoglobin Sodium Potassium Chloride BUN 27 H Creatinine 0.5 L D Glucose 200 H POC Glucose 147 H 114 H Ferritin AST ALT Alkaline Phosphatase Lactate Dehydrogenase C-Reactive Protein Total Protein Albumin 3.1 L Lipase Arterial Blood Glucose Coronavirus (PCR) SARS-CoV-2 IgG Ab 03/03/20 03/03/20 03/03/20 19:32 19:39 22:44 WBC 20.3 H RBC MCHC Lymph % (Auto) Lymph # (Auto) Seg Neutrophils % Seg Neuts % (Manual) 90.0 H Lymphocytes % (Manual) 4.0 L Seg Neutrophils # Seg Neutrophils # Man 18.3 H Lymphocytes # (Manual) 0.8 L Monocytes # (Manual) 1.2 H D-Dimer ABG pH POC ABG pO2 ABG pO2 ABG O2 Saturation ABG Glucose Oxyhemoglobin Carboxyhemoglobin Sodium Potassium Chloride BUN Creatinine Glucose POC Glucose 186 H 159 H Ferritin AST ALT Alkaline Phosphatase Lactate Dehydrogenase C-Reactive Protein Total Protein Albumin Lipase Arterial Blood Glucose Coronavirus (PCR) SARS-CoV-2 IgG Ab 03/04/20 03/04/20 03/04/20 06:06 06:06 07:52 WBC 17.2 H RBC MCHC Lymph % (Auto) Lymph # (Auto) Seg Neutrophils % Seg Neuts % (Manual) 88.0 H Lymphocytes % (Manual) 5.0 L Seg Neutrophils # 15.3 H Seg Neutrophils # Man 15.1 H Lymphocytes # (Manual) 0.9 L Monocytes # (Manual) D-Dimer ABG pH POC ABG pO2 ABG pO2 ABG O2 Saturation ABG Glucose Oxyhemoglobin Carboxyhemoglobin Sodium Potassium Chloride BUN 31 H Creatinine 0.4 L Glucose 144 H POC Glucose 131 H Ferritin AST ALT Alkaline Phosphatase Lactate Dehydrogenase C-Reactive Protein Total Protein Albumin 3.0 L Lipase Arterial Blood Glucose Coronavirus (PCR) SARS-CoV-2 IgG Ab 03/04/20 03/04/20 03/04/20 11:30 11:40 16:21 WBC RBC MCHC Lymph % (Auto) Lymph # (Auto) Seg Neutrophils % Seg Neuts % (Manual) Lymphocytes % (Manual) Seg Neutrophils # Seg Neutrophils # Man Lymphocytes # (Manual) Monocytes # (Manual) D-Dimer ABG pH 7.489 H POC ABG pO2 ABG pO2 54.6 L ABG O2 Saturation 90.4 L ABG Glucose Oxyhemoglobin 89.1 L Carboxyhemoglobin Sodium Potassium Chloride BUN Creatinine Glucose POC Glucose 121 H 155 H Ferritin AST ALT Alkaline Phosphatase Lactate Dehydrogenase C-Reactive Protein Total Protein Albumin Lipase Arterial Blood Glucose Coronavirus (PCR) SARS-CoV-2 IgG Ab 03/05/20 03/05/20 03/05/20 12:01 16:48 16:48 WBC RBC MCHC Lymph % (Auto) Lymph # (Auto) Seg Neutrophils % Seg Neuts % (Manual) Lymphocytes % (Manual) Seg Neutrophils # Seg Neutrophils # Man Lymphocytes # (Manual) Monocytes # (Manual) D-Dimer 1170.89 H ABG pH POC ABG pO2 ABG pO2 ABG O2 Saturation ABG Glucose Oxyhemoglobin Carboxyhemoglobin Sodium Potassium Chloride BUN Creatinine Glucose POC Glucose 116 H Ferritin 348.4 H AST ALT Alkaline Phosphatase Lactate Dehydrogenase C-Reactive Protein Total Protein Albumin Lipase Arterial Blood Glucose Coronavirus (PCR) SARS-CoV-2 IgG Ab 03/05/20 03/05/20 03/06/20 16:48 17:40 09:40 WBC RBC MCHC Lymph % (Auto) Lymph # (Auto) Seg Neutrophils % Seg Neuts % (Manual) Lymphocytes % (Manual) Seg Neutrophils # Seg Neutrophils # Man Lymphocytes # (Manual) Monocytes # (Manual) D-Dimer ABG pH POC ABG pO2 ABG pO2 77.4 L ABG O2 Saturation ABG Glucose Oxyhemoglobin 94.5 L Carboxyhemoglobin Sodium Potassium Chloride BUN Creatinine Glucose POC Glucose 233 H Ferritin AST ALT Alkaline Phosphatase Lactate Dehydrogenase 619 H C-Reactive Protein 3.50 H Total Protein Albumin Lipase Arterial Blood Glucose Coronavirus (PCR) SARS-CoV-2 IgG Ab 03/06/20 03/06/20 03/07/20 11:52 17:05 04:22 WBC 16.6 H RBC MCHC Lymph % (Auto) 7.9 L Lymph # (Auto) Seg Neutrophils % 87.5 H Seg Neuts % (Manual) Lymphocytes % (Manual) Seg Neutrophils # 14.5 H Seg Neutrophils # Man Lymphocytes # (Manual) Monocytes # (Manual) D-Dimer ABG pH POC ABG pO2 ABG pO2 ABG O2 Saturation ABG Glucose Oxyhemoglobin Carboxyhemoglobin Sodium Potassium Chloride BUN Creatinine Glucose POC Glucose 168 H 163 H Ferritin AST ALT Alkaline Phosphatase Lactate Dehydrogenase C-Reactive Protein Total Protein Albumin Lipase Arterial Blood Glucose Coronavirus (PCR) SARS-CoV-2 IgG Ab 03/07/20 03/07/20 03/07/20 04:22 11:27 16:55 WBC RBC MCHC Lymph % (Auto) Lymph # (Auto) Seg Neutrophils % Seg Neuts % (Manual) Lymphocytes % (Manual) Seg Neutrophils # Seg Neutrophils # Man Lymphocytes # (Manual) Monocytes # (Manual) D-Dimer ABG pH POC ABG pO2 ABG pO2 ABG O2 Saturation ABG Glucose Oxyhemoglobin Carboxyhemoglobin Sodium 134 L Potassium Chloride BUN 27 H Creatinine 0.4 L Glucose 109 H POC Glucose 108 H 140 H Ferritin AST ALT Alkaline Phosphatase Lactate Dehydrogenase C-Reactive Protein Total Protein 6.1 L Albumin 3.1 L Lipase Arterial Blood Glucose Coronavirus (PCR) SARS-CoV-2 IgG Ab 03/08/20 03/08/20 03/09/20 17:17 18:37 12:10 WBC RBC MCHC Lymph % (Auto) Lymph # (Auto) Seg Neutrophils % Seg Neuts % (Manual) Lymphocytes % (Manual) Seg Neutrophils # Seg Neutrophils # Man Lymphocytes # (Manual) Monocytes # (Manual) D-Dimer ABG pH POC ABG pO2 ABG pO2 ABG O2 Saturation ABG Glucose Oxyhemoglobin Carboxyhemoglobin Sodium Potassium Chloride BUN Creatinine Glucose POC Glucose 145 H 231 H 115 H Ferritin AST ALT Alkaline Phosphatase Lactate Dehydrogenase C-Reactive Protein Total Protein Albumin Lipase Arterial Blood Glucose Coronavirus (PCR) SARS-CoV-2 IgG Ab 03/10/20 03/10/20 03/12/20 11:23 15:34 10:19 WBC RBC MCHC Lymph % (Auto) Lymph # (Auto) Seg Neutrophils % Seg Neuts % (Manual) Lymphocytes % (Manual) Seg Neutrophils # Seg Neutrophils # Man Lymphocytes # (Manual) Monocytes # (Manual) D-Dimer ABG pH POC ABG pO2 ABG pO2 ABG O2 Saturation ABG Glucose Oxyhemoglobin Carboxyhemoglobin Sodium Potassium Chloride BUN Creatinine Glucose POC Glucose 125 H Ferritin 319.4 H AST ALT Alkaline Phosphatase Lactate Dehydrogenase C-Reactive Protein Total Protein 5.9 L Albumin 3.0 L Lipase 86 H Arterial Blood Glucose Coronavirus (PCR) SARS-CoV-2 IgG Ab 03/13/20 03/13/20 03/14/20 07:23 07:23 04:40 WBC 12.2 H RBC MCHC Lymph % (Auto) Lymph # (Auto) Seg Neutrophils % Seg Neuts % (Manual) Lymphocytes % (Manual) Seg Neutrophils # Seg Neutrophils # Man Lymphocytes # (Manual) Monocytes # (Manual) D-Dimer ABG pH POC ABG pO2 ABG pO2 ABG O2 Saturation ABG Glucose Oxyhemoglobin Carboxyhemoglobin Sodium 136 L Potassium Chloride BUN 20 H Creatinine 0.5 L Glucose POC Glucose Ferritin AST ALT Alkaline Phosphatase Lactate Dehydrogenase C-Reactive Protein Total Protein 6.1 L Albumin 3.1 L Lipase 68 H Arterial Blood Glucose Coronavirus (PCR) SARS-CoV-2 IgG Ab Allied health notes reviewed: nursing
[2020-03-19] MEDS: ENOXAPARIN 40 MG/0.4 ML INJ SUB-Q SCH (22:19)
[2020-03-19] MEDS: traMADol 50 MG TAB PO PRN (22:21)
[2020-03-20] MEDS: ASCORBIC ACID 500 MG TAB PO SCH ×2 (09:44→22:22)
[2020-03-20] MEDS: FAMOTIDINE 20 MG TAB PO SCH ×2 (09:44→22:21)
[2020-03-20] MEDS: CHOLECALCIFEROL (VIT D3) 5,000 UNIT TAB PO SCH (09:44)
[2020-03-20] MEDS: BENZONATATE 100 MG CAP PO SCH ×2 (09:44→22:22)
[2020-03-20] MEDS ORDERED: SODIUM CHLORIDE 0.9% 250ML 250 ML IV ONE (16:41)
[2020-03-20] MEDS: HYDROcodone/HOMATROPINE 5-1.5MG /5 ML ORAL LIQD UNIT DOSE PO PRN (17:36)
--- NOTE | 2020-03-20 18:11 | Progress Note ---
Assessment and Plan Assessment and plan: Patient is medically stable for discharge/waiting for oxygen concentrator Family arranged home oxygen, --Severe Covid pneumonia bilateral opacities: follow-up x-ray on 03/14/2020/reviewed Home oxygen evaluation done Patient is a candidate for home oxygen, O2 is set up Oxygen concentrator not available awaiting Case management processing -- Acute hypoxemic respiratory failure Current Visit: Yes Status: Acute Plan to address problem: Patient on 40 L high flow oxygen Worsening clinical picture Slightly improved on nasal cannula oxygen -- Covid pneumonia Current Visit: Yes Status: Acute Plan to address problem: Patient is coronavirus PCR positive on 02/26/2020 Patient is also SARS-CoV-2 IgG positive Patient is not a candidate for Covid convalescent plasma Steroids, remdesivir for total 5 days Continue anticoagulation Prone positioning as possible High flow oxygen Wean to nasal cannula oxygen Home O2 evaluation -- Pneumonia Current Visit: Yes Status: Acute Plan to address problem: Follow-up chest x-ray worsening bilateral infiltrates Continue oxygen and supportive care -- severe sepsis Remains hypoxic likely due to bilateral pneumonia Continue IV antibiotics --Abdominal Pain; acute gastritis supportive care, abdominal ultrasound, possible GI consult if no improvement --DVT prophylaxis Current Visit: Yes Status: Acute Plan to address problem: High-dose Lovenox Monitor closely and adjust the management as needed Plan of care reviewed with the patient and her nurse as well as the case management Consults and recommendations noted and appreciated Evaluate for home oxygen Possible discharge home tomorrow if stable and if oxygen concentrator is available Consults and recommendations noted and appreciated DC planning per case management 50 YO Female with Obesity Hypoventilation Syndrome presents to ED for bennett ruano. Patient states that she has "been feeling sick" for the past 2 weeks with persistent symptoms over the same timeframe. Patient was seen and evaluated by her primary care physician and treated with oral antibiotics for outpatient pneumonia. Patient states that she has experienced persistent symptoms in spite of of compliance with medication. Patient reports fever, dry cough, shortness of breath, decreased exercise tolerance, nausea, multiple episodes of vomiting, multiple loose stools, loss of sense of smell, loss of sense of taste, fatigue, malaise, body aches. Patient transported to [facility] via private vehicle for further care and evaluation of the aforementioned symptoms. Patient seen and evaluated in the emergency department. All lab and imaging studies reviewed. Patient found to have a fever to 102.1 F, as well as a pulse oximetry of 88% with exertion on room air which is consistent with acute hypoxemic respiratory failure. Patient underwent chest x-ray which revealed bilateral pneumonia. Patient admitted to medical floor and initiated on pneumonia protocol as well as coronavirus protocol. Coronavirus PCR ordered in the emergency department and is pending at time of admission. Patient acknowledges fever, but denies chest pain, palpitation, skin rash, recent ill contacts, trauma, or known exposure to COVID-19. No medication listed at time of admission. No prior admission for review. 02/29/2020 Patient alert, awake. Having cough. Having mild shortness of breath at rest. Patient is on vapotherm, FIO2 100% and O2 saturation 90%. Patient switched to BIPAP. But patient not using it.Patient afebrile. No leukocytosis. Complaining headache at times.Patients [place] virus PCR is Positive. Patients chest xray done 02/24/20 reported Patchy bilateral pulmonary opacities are concerning for infection/pneumonia. 03/01/2020 03/01/2020 Patient on high flow oxygen and BiPAP 03/02/2020 Patient still on high flow oxygen and BiPAP 03/03/2020 Patient with worsening inflammatory markers Chest x-ray worsening with extensive consolidations Patient will be transferred to ICU 03/04/2020 Patient on high flow oxygen-40 L Worsening pulmonary alveolar infiltrates Possible intubation !05/07/19 On High flow oxygen 03/07/2020 Patient still on high flow oxygen Not intubated 03/08- on HFNC 03/10: Clinically showing some improvement as HFNC is improving. Continue weaning as tolerated 03/11: Continue supportive care, weaning oxygen as tolerated. Can transfer to 3rd floor if weaned off HFNC. 03/12: Patient respiratory meier continues to improve, did have some abdominal pain with FOOD, Will check LFT, ammonia, and Lipase and abdominal ultrasound, considering patient is 35% FIO2, will transfer to [facility]. 03/14; patient feels slightly better abdominal pain significantly improved Patient was on high flow oxygen for few days, currently on 4 L nasal cannula oxygen Wean and titrate to O2 sats more than 90% Check resting and ambulatory room air O2 sats, Case management for possible home health Possible discharge in 1 to 2 days if stable and if cleared by pulmonary 03/15: Initially was planning to discharge home on nasal cannula oxygen However patient's repeat x-ray l yesterday t showed worsening infiltrates, worsening shortness of breath We will closely monitor next 24 hours, and DC home if stable Resting O2 90%, ambulatory room air O2 83%, on 2 L of nasal cannula oxygen improved to 95% Recommended home oxygen, patient uninsured no resources, patient's family willing to pay for for the oxygen Patient will be discharged tomorrow if stable 03/17/2020; patient feels slightly better still hypoxic, oxygen is available however there is shortage of O2 concentrator Will check with case management about discharge plan, possible discharge home tomorrow if O2 concentrator and oxygen are set up 03/18/2020; patient is medically stable for discharge, hypoxic needs home oxygen, O2 is set up however oxygen concentrator is not available Case management processing, discharge when oxygen concentrator is available 03/19/2020; patient feels better, stable for discharge, awaiting home oxygen concentrator which is not available We will check with case management tomorrow and discharge if stable 03/20/2020; patient is clinically stable for discharge, awaiting oxygen concentrator which is not available Case management processing Patient is stable for discharge Waiting for oxygen concentrator History Interval history: I have seen the patient in her room from a distance Strict isolation precautions and PPE protocols observed Patient complains of mild shortness of breath Requiring 2 to 3 L of nasal cannula oxygen Vital signs noted Hospitalist Physical - Constitutional Vitals: Temp Pulse Resp BP Pulse Ox 99.2 F 96 H 17 87/39 99 03/20/20 16:12 03/20/20 16:12 03/20/20 16:12 03/20/20 16:12 03/20/20 16:12 General appearance: Present: mild distress, well-nourished, obese, other (Mild distress) - EENT ENT: other (Physical examination not performed to reduce disease transmission) - Neck Neck: Present: other (Physical examination not performed to reduce disease transmission) - Respiratory Respiratory effort: other (Physical examination not performed to reduce disease transmission) - Extremities Extremity abnormal: other (Physical examination not performed to reduce disease transmission) - Abdominal General gastrointestinal: other (Physical examination not performed to reduce disease transmission) - Psychiatric Psychiatric: other (Physical examination not performed to reduce disease transmission) - Neurologic Neurologic: other (Physical examination not performed to reduce disease transmission) HEART Score - HEART Score Troponin: Troponin T < 0.010 ng/mL (0.00-0.029) 02/28/20 16:03 Results - Labs CBC & Chem 7: 03/13/20 07:23 03/13/20 07:23 Labs: Laboratory Last Values WBC 12.2 K/mm3 (4.5-11.0) H 03/13/20 07:23 RBC 4.00 M/mm3 (3.65-5.03) 03/13/20 07:23 Hgb 12.0 gm/dl (10.1-14.3) 03/13/20 07:23 Hct 36.2 % (30.3-42.9) 03/13/20 07:23 MCV 90 fl (79-97) 03/13/20 07:23 MCH 30 pg (28-32) 03/13/20 07:23 MCHC 33 % (30-34) 03/13/20 07:23 RDW 13.8 % (13.2-15.2) 03/13/20 07:23 Plt Count 215 K/mm3 (140-440) 03/13/20 07:23 Lymph % (Auto) 7.9 % (13.4-35.0) L 03/07/20 04:22 [place] % (Auto) 3.5 % (0.0-7.3) 03/07/20 04:22 Eos % (Auto) 0.9 % (0.0-4.3) 03/07/20 04:22 Baso % (Auto) 0.2 % (0.0-1.8) 03/07/20 04:22 Lymph # (Auto) 1.3 K/mm3 (1.2-5.4) 03/07/20 04:22 [place] # (Auto) 0.6 K/mm3 (0.0-0.8) 03/07/20 04:22 Eos # (Auto) 0.2 K/mm3 (0.0-0.4) 03/07/20 04:22 Baso # (Auto) 0.0 K/mm3 (0.0-0.1) 03/07/20 04:22 Add Manual Diff Complete 03/04/20 06:06 Total Counted 100 03/04/20 06:06 Seg Neutrophils % 87.5 % (40.0-70.0) H 03/07/20 04:22 Seg Neuts % (Manual) 88.0 % (40.0-70.0) H 03/04/20 06:06 Lymphocytes % (Manual) 5.0 % (13.4-35.0) L 03/04/20 06:06 Reactive Lymphs % (Man) 1.0 % 03/04/20 06:06 Monocytes % (Manual) 4.0 % (0.0-7.3) 03/04/20 06:06 Eosinophils % (Manual) 1.0 % (0.0-4.3) 03/04/20 06:06 Metamyelocytes % 1.0 % 03/04/20 06:06 Nucleated RBC % Not Reportable 03/04/20 06:06 Seg Neutrophils # 14.5 K/mm3 (1.8-7.7) H 03/07/20 04:22 Seg Neutrophils # Man 15.1 K/mm3 (1.8-7.7) H 03/04/20 06:06 Band Neutrophils # 0.0 K/mm3 03/04/20 06:06 Lymphocytes # (Manual) 0.9 K/mm3 (1.2-5.4) L 03/04/20 06:06 Abs React Lymphs (Man) 0.2 K/mm3 03/04/20 06:06 Monocytes # (Manual) 0.7 K/mm3 (0.0-0.8) 03/04/20 06:06 Eosinophils # (Manual) 0.2 K/mm3 (0.0-0.4) 03/04/20 06:06 Basophils # (Manual) 0.0 K/mm3 (0.0-0.1) 03/04/20 06:06 Metamyelocytes # 0.2 K/mm3 03/04/20 06:06 Myelocytes # 0.0 K/mm3 03/04/20 06:06 Promyelocytes # 0.0 K/mm3 03/04/20 06:06 Blast Cells # 0.0 K/mm3 03/04/20 06:06 WBC Morphology Not Reportable 03/04/20 06:06 Hypersegmented Neuts Not Reportable 03/04/20 06:06 Hyposegmented Neuts Not Reportable 03/04/20 06:06 Hypogranular Neuts Not Reportable 03/04/20 06:06 Smudge Cells Not Reportable 03/04/20 06:06 Toxic Granulation Not Reportable 03/04/20 06:06 Toxic Vacuolation Not Reportable 03/04/20 06:06 Dohle Bodies Not Reportable 03/04/20 06:06 Pelger-Huet Anomaly Not Reportable 03/04/20 06:06 Iman Rods Not Reportable 03/04/20 06:06 Platelet Estimate Consistent w auto 03/04/20 06:06 Clumped Platelets Not Reportable 03/04/20 06:06 Plt Clumps, EDTA Not Reportable 03/04/20 06:06 Large Platelets Not Reportable 03/04/20 06:06 Giant Platelets Not Reportable 03/04/20 06:06 Platelet Satelliting Not Reportable 03/04/20 06:06 Plt Morphology Comment Not Reportable 03/04/20 06:06 RBC Morphology Normal 03/04/20 06:06 Dimorphic RBCs Not Reportable 03/04/20 06:06 Polychromasia Not Reportable 03/04/20 06:06 Hypochromasia Not Reportable 03/04/20 06:06 Poikilocytosis Not Reportable 03/04/20 06:06 Anisocytosis Not Reportable 03/04/20 06:06 Microcytosis Not Reportable 03/04/20 06:06 Macrocytosis Not Reportable 03/04/20 06:06 Spherocytes Not Reportable 03/04/20 06:06 Pappenheimer Bodies Not Reportable 03/04/20 06:06 Sickle Cells Not Reportable 03/04/20 06:06 Target Cells Not Reportable 03/04/20 06:06 Tear Drop Cells Not Reportable 03/04/20 06:06 Ovalocytes Not Reportable 03/04/20 06:06 Helmet Cells Not Reportable 03/04/20 06:06 [place] Bodies Not Reportable 03/04/20 06:06 Wilbur Rings Not Reportable 03/04/20 06:06 [place] Cells Not Reportable 03/04/20 06:06 Bite Cells Not Reportable 03/04/20 06:06 Crenated Cell Not Reportable 03/04/20 06:06 Elliptocytes Not Reportable 03/04/20 06:06 Acanthocytes (Spur) Not Reportable 03/04/20 06:06 Rouleaux Not Reportable 03/04/20 06:06 Hemoglobin C Crystals Not Reportable 03/04/20 06:06 Schistocytes Not Reportable 03/04/20 06:06 Malaria parasites Not Reportable 03/04/20 06:06 Jesus Bodies Not Reportable 03/04/20 06:06 Hem Pathologist Commnt No 03/04/20 06:06 D-Dimer 1170.89 ng/mlDDU (0-234) H 03/05/20 16:48 ABG pH 7.439 pH Units (7.350-7.450) 03/06/20 09:40 POC ABG pCO2 40.0 mmHg (32.0-48.0) 03/01/20 08:53 ABG pCO2 36.8 mm Hg 03/06/20 09:40 POC ABG pO2 71.9 mmHg (83-108) L 03/01/20 08:53 ABG pO2 77.4 mm Hg (80.0-90.0) L 03/06/20 09:40 POC ABG HCO3 28.0 03/01/20 08:53 ABG HCO3 24.4 mmol/L (20.0-26.0) 03/06/20 09:40 ABG O2 Saturation 96.0 % (95.0-99.0) 03/06/20 09:40 ABG O2 Content 18.4 (0.0-44) 03/06/20 09:40 POC ABG Base Excess 4.0 03/01/20 08:53 ABG Base Excess 0.5 mmol/L (-2.0-3.0) 03/06/20 09:40 ABG Hemoglobin 13.8 gm/dl (12.0-16.0) 03/06/20 09:40 ABG Oxyhemoglobin 94.1 (94-98) 03/01/20 08:53 ABG Carboxyhemoglobin 1.1 % (0.0-5.0) 03/06/20 09:40 ABG Methemoglobin 0.4 % (0.0-1.5) 03/06/20 09:40 ABG Sodium 139.8 mmol/L (136.0-145.0) 03/01/20 08:53 ABG Potassium 3.9 mmol/L (3.40-4.50) 03/01/20 08:53 ABG Chloride 105.0 mmol/L (98-107) 03/01/20 08:53 ABG Glucose 147 mg/dL (65-95) H 03/01/20 08:53 Oxyhemoglobin 94.5 % (95.0-99.0) L 03/06/20 09:40 Carboxyhemoglobin 0.2 (0.5-1.5) L 03/01/20 08:53 FiO2 100 % 03/06/20 09:40 Sodium 136 mmol/L (137-145) L 03/13/20 07:23 Potassium 3.6 mmol/L (3.6-5.0) 03/13/20 07:23 Chloride 101.3 mmol/L (98-107) 03/13/20 07:23 Carbon Dioxide 27 mmol/L (22-30) 03/13/20 07:23 Anion Gap 11 mmol/L 03/13/20 07:23 BUN 20 mg/dL (7-17) H 03/13/20 07:23 Creatinine 0.5 mg/dL (0.6-1.2) L 03/13/20 07:23 Estimated GFR > 60 ml/min 03/13/20 07:23 BUN/Creatinine Ratio 40 % 03/13/20 07:23 Glucose 88 mg/dL (65-100) 03/13/20 07:23 POC Glucose 95 mg/dL (70-105) 03/20/20 16:04 Lactic Acid 1.00 mmol/L (0.7-2.0) 02/24/20 14:31 Calcium 8.9 mg/dL (8.4-10.2) 03/13/20 07:23 Ferritin 319.4 ng/mL (10.0-200.0) H 03/10/20 15:34 Total Bilirubin 0.20 mg/dL (0.1-1.2) 03/13/20 07:23 Direct Bilirubin < 0.2 mg/dL (0-0.2) 03/12/20 10:19 Indirect Bilirubin 0.0 mg/dL 03/12/20 10:19 AST 23 units/L (5-40) 03/13/20 07:23 ALT 51 units/L (7-56) 03/13/20 07:23 Alkaline Phosphatase 66 units/L (35-129) 03/13/20 07:23 Lactate Dehydrogenase 619 units/L (91-180) H 03/05/20 16:48 Troponin T < 0.010 ng/mL (0.00-0.029) 02/28/20 16:03 C-Reactive Protein 0.30 mg/dL (0.00-1.30) 03/10/20 15:34 NT-Pro-B Natriuret Pep 47.67 pg/mL (0-450) 03/02/20 16:51 Total Protein 6.1 g/dL (6.3-8.2) L 03/13/20 07:23 Albumin 3.1 g/dL (3.9-5) L 03/13/20 07:23 Albumin/Globulin Ratio 1.0 % 03/13/20 07:23 Lipase 68 units/L (13-60) H 03/14/20 04:40 Procalcitonin < 0.05 ng/mL (<0.15) 02/25/20 14:21 Arterial Blood Glucose 147 mg/dL (65-95) H 03/01/20 08:53 Arterial Blood Ionized Calcium 4.7 mg/dL (4.6-5.3) 03/01/20 08:53 Urine Color Yellow (Yellow) 02/24/20 Unknown Urine Turbidity Clear (Clear) 02/24/20 Unknown Urine pH 6.0 (5.0-7.0) 02/24/20 Unknown Ur Specific Crum 1.023 (1.003-1.030) 02/24/20 Unknown Urine Protein 100 mg/dl mg/dL (Negative) 02/24/20 Unknown Urine Glucose (UA) Neg mg/dL (Negative) 02/24/20 Unknown Urine Ketones Neg mg/dL (Negative) 02/24/20 Unknown Urine Blood Neg (Negative) 02/24/20 Unknown Urine Nitrite Neg (Negative) 02/24/20 Unknown Urine Bilirubin Neg (Negative) 02/24/20 Unknown Urine Urobilinogen 2.0 mg/dL (<2.0) 02/24/20 Unknown Ur Leukocyte Esterase Neg (Negative) 02/24/20 Unknown Urine WBC (Auto) 4.0 /HPF (0.0-6.0) 02/24/20 Unknown Urine RBC (Auto) 2.0 /HPF (0.0-6.0) 02/24/20 Unknown U Epithel Cells (Auto) 3.0 /HPF (0-13.0) 02/24/20 Unknown Urine Bacteria (Auto) 1+ /HPF (Negative) 02/24/20 Unknown Urine Mucus 1+ /HPF 02/24/20 Unknown Coronavirus (PCR) Positive (Negative) A 02/26/20 10:45 SARS-CoV-2 IgG Ab Reactive (NonReactive) A 02/28/20 16:03 - Diagnostic Impressions Diagnostic Impressions: Echocardiogram 03/01/20 09:12 Transthoracic Echocardiogram Indication: Eval EF; PA HTN BP: 121/78 HR: 90 Conclusions *Global left ventricular systolic function is normal. *The estimated ejection fraction is 60-65%. *The right ventricular global systolic function is normal. *There is no evidence of aortic regurgitation. *There is trace of mitral regurgitation. *There is trace tricuspid regurgitation. *The right ventricular systolic pressure is calculated at 28 mmHg. *There is trace pulmonic regurgitation. Findings Left Ventricle: The left ventricular chamber size is normal. There is no left ventricular hypertrophy. Global left ventricular wall motion and contractility are within normal limits. Global left ventricular systolic function is normal. The estimated ejection fraction is 60-65%. There is an E to A reversal in the mitral valve flow pattern suggestive of diastolic dysfunction. Left Atrium: The left atrial chamber size is normal. Right Ventricle: The right ventricular cavity size is normal. The right ventricular global systolic function is normal. Right Atrium: The right atrial cavity size is normal. Aortic Valve: There is no evidence of aortic valve thickening. There is no evidence of aortic regurgitation. Mitral Valve: The mitral valve leaflets do not appear thickened. There is trace of mitral regurgitation. Tricuspid Valve: The tricuspid valve leaflets are normal. There is trace tricuspid regurgitation. The right ventricular systolic pressure is calculated at 28 mmHg. Pulmonic Valve: There is no evidence of pulmonic valve thickening. There is trace pulmonic regurgitation. Pericardium: There is no pericardial effusion. Aorta: The aorta appears normal. Venous: The inferior vena cava appears normal in size. Measurements Chambers 2D Name Value Normal Range IVSd (2D) 0.97 cm (0.6 - 1.1) LVPWd (2D) 1.05 cm (0.6 - 1.1) LVIDd (2D) 3.87 cm (3.7 - 5.6) LVIDs (2D) 2.41 cm (2 - 3.8) LV FS (2D) 37.69 % - EF Teichholz (2D) 68.47 % - Ao root diameter (2D) 2.92 cm (2 - 3.7) Volumes/Mass Name Value Normal Range LA ESV SP 4CH (A/L) 32.2 ml - LA ESV SP 2CH (A/L) 24.78 ml - LA ESV BP (A/L) 29.52 ml - LA ESV BP (A/L) index 16.68 ml/m2 - LA ESV SP 4CH (MOD) 29.62 ml - LA ESV SP 2CH (MOD) 23.68 ml - LA ESV BP (MOD) 27.57 ml - LA ESV BP (MOD) index 15.58 ml/m2 - Diastolic/Systolic Function Name Value Normal Range MV E-wave Vmax 0.59 m/sec - MV deceleration time 258.54 msec - MV A-wave Vmax 0.73 m/sec - MV E:A ratio 0.81 ratio - Aortic Valve Name Value Normal Range AV Vmax 1.33 m/sec - AV VTI 22.87 cm - AV peak gradient 7.09 mmHg - AV mean gradient 4.39 mmHg - LVOT diameter 1.52 cm - LVOT Vmax 1.22 m/sec - LVOT VTI 20.85 cm - LVOT peak gradient 5.96 mmHg - LVOT mean gradient 2.91 mmHg - SV LVOT 37.79 ml - VINEET (continuity Vmax) 1.66 cm2 - VINEET (continuity VTI) 1.65 cm2 - Ascending Ao 2.78 cm - Tricuspid Valve Name Value Normal Range TR Vmax 2.48 m/sec - TR peak gradient 25 mmHg - RAP 3 mmHg - RVSP 28 mmHg - IVC diameter 1.77 cm (1.2 - 2.3) Pulmonic Valve/Qp:Qs Name Value Normal Range PV Vmax 0.85 m/sec - PV peak gradient 2.9 mmHg - [place] end-diastolic Vmax 1.26 m/sec - PV acceleration time 144.62 msec - [place]/IV: Voiding Method Toilet IV Catheter Type [Left Hand] INT / Saline Lock IV Catheter Type [Right Peripheral IV Forearm] IV Catheter Type [Right Peripheral IV Antecubital] Active Medications - Current Medications Current Medications: Generic Name Dose Route Start Last Admin Trade Name Freq PRN Reason Stop Dose Admin Acetaminophen 650 mg 02/24/20 15:14 03/19/20 06:03 Acetaminophen 325 Mg Tab PO 650 mg Q4H PRN Administration Pain MILD(1-3)/Fever >100.5/DANGELO Albuterol 2.5 mg 02/24/20 15:14 Albuterol 2.5 Mg/3 Ml Nebu IH Q4HRT PRN Shortness Of Breath Ascorbic Acid 1,000 mg 02/29/20 23:45 03/20/20 09:44 Ascorbic Acid 500 Mg Tab PO 1,000 mg BID UTE Administration Benzonatate 100 mg 02/25/20 22:00 03/20/20 09:44 Benzonatate 100 Mg Cap PO 100 mg BID UTE Administration Cholecalciferol 5,000 unit 03/01/20 10:00 03/20/20 09:44 Cholecalciferol (Vit D3) 5,000 Unit Tab PO 5,000 unit DAILY UTE Administration Enoxaparin Sodium 40 mg 03/19/20 22:00 03/19/20 22:19 Enoxaparin 40 Mg/0.4 Ml Inj SUB-Q 40 mg QDAY@2200 UTE Administration Protocol Famotidine 10 mg 03/13/20 23:00 03/20/20 09:44 Famotidine 20 Mg Tab PO 10 mg BID UTE Administration Hydrocodone Bit/Homatropine Methylb 10 ml 02/26/20 15:00 03/20/20 17:36 Hydrocodone/Homatropine 5-1.5mg /5 Ml Oral Liqd Unit Dose PO 10 ml Q6H PRN Administration Cough Morphine Sulfate 2 mg 03/11/20 19:35 03/13/20 10:41 Morphine 2 Mg/1 Ml Inj IV 2 mg Q4H PRN Administration Pain, Moderate (4-6) Ondansetron HCl 4 mg 02/24/20 15:14 Ondansetron 4 Mg/2 Ml Inj IV Q8H PRN Nausea And Vomiting Sodium Chloride 10 ml 02/24/20 22:00 03/20/20 09:44 Sodium Chloride 0.9% 10 Ml Flush Syringe IV 10 ml BID UTE Administration Sodium Chloride 10 ml 02/24/20 15:14 Sodium Chloride 0.9% 10 Ml Flush Syringe IV PRN PRN LINE FLUSH Tramadol HCl 50 mg 02/29/20 22:10 03/19/20 22:21 Tramadol 50 Mg Tab PO 50 mg Q6H PRN Administration Pain, Moderate (4-6) Nutrition/Malnutrition Assess - Dietary Evaluation Nutrition/Malnutrition Findings: Nutrition Notes Start: 03/02/20 12:47 Freq: Status: Active Protocol: Document 03/02/20 12:47 EN (Rec: 03/02/20 12:53 EN [email or web address]) Co-Sign 03/02/20 12:47 MK Nutrition Notes Need for Assessment generated from: LOS Initial or Follow up Brief Note Current Diagnosis Sepsis Other Pertinent Diagnosis COVID-19+, Pneu, acute respiratory failure Current Diet Cardiac [place] Body Weight (kg) 0 Subjective/Other Information Pt screened for LOS. Unable to reach pt by phone x2 for assessment. RN unsure of current PO intakes for today but states pt has not had any N/V/D. Per chart, 100% meal consumption consistently Nutrition Intervention Anticipated Discharge Needs: Cardiac diet Revisit per MD consult or patient Sign Off request:
[2020-03-20] MEDS: ACETAMINOPHEN 325 MG TAB PO PRN (20:10)
[2020-03-20] MEDS: ENOXAPARIN 40 MG/0.4 ML INJ SUB-Q SCH (22:21)
--- NOTE | 2020-03-21 09:40 | Progress Note ---
Assessment and Plan Assessment and plan: Patient is medically stable for discharge/waiting for oxygen concentrator Family arranged home oxygen, Patient is requiring 2 L of nasal cannula oxygen Stable for discharge --Severe Covid pneumonia bilateral opacities: follow-up x-ray on 03/14/2020/reviewed Home oxygen evaluation done Patient is a candidate for home oxygen, O2 is set up Oxygen concentrator not available awaiting Case management processing -- Acute hypoxemic respiratory failure Current Visit: Yes Status: Acute Plan to address problem: Patient on 40 L high flow oxygen Worsening clinical picture Slightly improved on nasal cannula oxygen -- Covid pneumonia Current Visit: Yes Status: Acute Plan to address problem: Patient is coronavirus PCR positive on 02/26/2020 Patient is also SARS-CoV-2 IgG positive Patient is not a candidate for Covid convalescent plasma Steroids, remdesivir for total 5 days Continue anticoagulation Prone positioning as possible High flow oxygen Wean to nasal cannula oxygen Home O2 evaluation -- Pneumonia Current Visit: Yes Status: Acute Plan to address problem: Follow-up chest x-ray worsening bilateral infiltrates Continue oxygen and supportive care -- severe sepsis Remains hypoxic likely due to bilateral pneumonia Continue IV antibiotics --Abdominal Pain; acute gastritis supportive care, abdominal ultrasound, possible GI consult if no improvement --DVT prophylaxis Current Visit: Yes Status: Acute Plan to address problem: High-dose Lovenox Monitor closely and adjust the management as needed Plan of care reviewed with the patient and her nurse as well as the case management Consults and recommendations noted and appreciated Evaluate for home oxygen Possible discharge home tomorrow if stable and if oxygen concentrator is available Consults and recommendations noted and appreciated DC planning per case management 50 YO Female with Obesity Hypoventilation Syndrome presents to ED for evaluation. Patient states that she has "been feeling sick" for the past 2 weeks with persistent symptoms over the same timeframe. Patient was seen and evaluated by her primary care physician and treated with oral antibiotics for outpatient pneumonia. Patient states that she has experienced persistent symptoms in spite of of compliance with medication. Patient reports fever, dry cough, shortness of breath, decreased exercise tolerance, nausea, multiple episodes of vomiting, multiple loose stools, loss of sense of smell, loss of sense of taste, fatigue, malaise, body aches. Patient transported to [facility] via private vehicle for further care and evaluation of the aforementioned symptoms. Patient seen and evaluated in the emergency department. All lab and imaging studies reviewed. Patient found to have a fever to 102.1 F, as well as a pulse oximetry of 88% with exertion on room air which is consistent with acute hypo xemic respiratory failure. Patient underwent chest x-ray which revealed bilateral pneumonia. Patient admitted to medical floor and initiated on pneumonia protocol as well as coronavirus protocol. Coronavirus PCR ordered in the emergency department and is pending at time of admission. Patient ack nowledges fever, but denies chest pain, palpitation, skin rash, recent ill contacts, trauma, or known exposure to COVID-19. No medication listed at time of admission. No prior admission for review. 02/29/2020 Patient alert, awake. Having cough. Having mild shortness of breath at rest. Patient is on vapotherm, FIO2 100% and O2 saturation 90%. Patient switched to BIPAP. But patient not using it.Patient afebrile. No leukocytosis. Complaining headache at times.Patients [place] virus PCR is Positive. Patients chest xray done 02/24/20 reported Patchy bilateral pulmonary opacities are concerning for infection/pneumonia. 03/01/2020 03/01/2020 Patient on high flow oxygen and BiPAP 03/02/2020 Patient still on high flow oxygen and BiPAP 03/03/2020 Patient with worsening inflammatory markers Chest x-ray worsening with extensive consolidations Patient will be transferred to ICU 03/04/2020 Patient on high flow oxygen-40 L Worsening pulmonary alveolar infiltrates Possible intubation !05/07/19 On High flow oxygen 03/07/2020 Patient still on high flow oxygen Not intubated 03/08- on HFNC 03/10: Clinically showing some improvement as HFNC is improving. Continue weaning as tolerated 03/11: Continue supportive care, weaning oxygen as tolerated. Can transfer to 3rd floor if weaned off HFNC. 03/12: Patient respiratory meier continues to improve, did have some abdominal pain with FOOD, Will check LFT, ammonia, and Lipase and abdominal ultrasound, considering patient is 35% FIO2, will transfer to [facility]. 03/14; patient feels slightly better abdominal pain significantly improved Patient was on high flow oxygen for few days, currently on 4 L nasal cannula oxygen Wean and titrate to O2 sats more than 90% Check resting and ambulatory room air O2 sats, Case management for possible home health Possible discharge in 1 to 2 days if stable and if cleared by pulmonary 03/15: Initially was planning to discharge home on nasal cannula oxygen However patient's repeat x-ray l yesterday t showed worsening infiltrates, worsening shortness of breath We will closely monitor next 24 hours, and DC home if stable Resting O2 90%, ambulatory room air O2 83%, on 2 L of nasal cannula oxygen improved to 95% Recommended home oxygen, patient uninsured no resources, patient's family willing to pay for for the oxygen Patient will be discharged tomorrow if stable 03/17/2020; patient feels slightly better still hypoxic, oxygen is available however there is shortage of O2 concentrator Will check with case management about discharge plan, possible discharge home tomorrow if O2 concentrator and oxygen are set up 03/18/2020; patient is medically stable for discharge, hypoxic needs home oxygen, O2 is set up however oxygen concentrator is not available Case management processing, discharge when oxygen concentrator is available 03/19/2020; patient feels better, stable for discharge, awaiting home oxygen concentrator which is not available We will check with case management tomorrow and discharge if stable 03/20/2020; patient is clinically stable for discharge, awaiting oxygen concentrator which is not available Case management processing 03/21/2020 patient is stable for discharge Waiting for oxygen concentrator Plan of care reviewed with the patient and her nurse History Interval history: I have seen the patient in her room from a distance Strict isolation precautions and PPE protocols observed Patient complains of mild shortness of breath Requiring 2 to 3 L of nasal cannula oxygen Vital signs noted, in mild distress Patient is medically stable for discharge waiting for oxygen concentrator [not available per CM] Hospitalist Physical - Constitutional Vitals: Temp Pulse Resp BP Pulse Ox 98.6 F 83 18 101/41 97 03/21/20 04:48 03/21/20 04:48 03/21/20 04:48 03/21/20 04:48 03/21/20 04:48 General appearance: Present: mild distress, well-nourished, obese, other (Mild distress) - EENT Eyes: Present: PERRL, EOM intact - Neck Neck: Present: supple, normal ROM - Respiratory Respiratory effort: normal Respiratory: bilateral: diminished, other, negative: rales, rhonchi, wheezing - Cardiovascular Rhythm: regular Heart Sounds: Present: S1 & S2 - Extremities Extremities: no ischemia, No edema - Abdominal General gastrointestinal: soft, non-tender, non-distended, normal bowel sounds - Integumentary Integumentary: Present: clear, warm - Psychiatric Psychiatric: appropriate mood/affect, cooperative - Neurologic Neurologic: CNII-XII intact, moves all extremities HEART Score - HEART Score Troponin: Troponin T < 0.010 ng/mL (0.00-0.029) 02/28/20 16:03 Results - Labs CBC & Chem 7: 03/13/20 07:23 03/13/20 07:23 Labs: Laboratory Last Values WBC 12.2 K/mm3 (4.5-11.0) H 03/13/20 07:23 RBC 4.00 M/mm3 (3.65-5.03) 03/13/20 07:23 Hgb 12.0 gm/dl (10.1-14.3) 03/13/20 07:23 Hct 36.2 % (30.3-42.9) 03/13/20 07:23 MCV 90 fl (79-97) 03/13/20 07:23 MCH 30 pg (28-32) 03/13/20 07:23 MCHC 33 % (30-34) 03/13/20 07:23 RDW 13.8 % (13.2-15.2) 03/13/20 07:23 Plt Count 215 K/mm3 (140-440) 03/13/20 07:23 Lymph % (Auto) 7.9 % (13.4-35.0) L 03/07/20 04:22 [place] % (Auto) 3.5 % (0.0-7.3) 03/07/20 04:22 Eos % (Auto) 0.9 % (0.0-4.3) 03/07/20 04:22 Baso % (Auto) 0.2 % (0.0-1.8) 03/07/20 04:22 Lymph # (Auto) 1.3 K/mm3 (1.2-5.4) 03/07/20 04:22 [place] # (Auto) 0.6 K/mm3 (0.0-0.8) 03/07/20 04:22 Eos # (Auto) 0.2 K/mm3 (0.0-0.4) 03/07/20 04:22 Baso # (Auto) 0.0 K/mm3 (0.0-0.1) 03/07/20 04:22 Add Manual Diff Complete 03/04/20 06:06 Total Counted 100 03/04/20 06:06 Seg Neutrophils % 87.5 % (40.0-70.0) H 03/07/20 04:22 Seg Neuts % (Manual) 88.0 % (40.0-70.0) H 03/04/20 06:06 Lymphocytes % (Manual) 5.0 % (13.4-35.0) L 03/04/20 06:06 Reactive Lymphs % (Man) 1.0 % 03/04/20 06:06 Monocytes % (Manual) 4.0 % (0.0-7.3) 03/04/20 06:06 Eosinophils % (Manual) 1.0 % (0.0-4.3) 03/04/20 06:06 Metamyelocytes % 1.0 % 03/04/20 06:06 Nucleated RBC % Not Reportable 03/04/20 06:06 Seg Neutrophils # 14.5 K/mm3 (1.8-7.7) H 03/07/20 04:22 Seg Neutrophils # Man 15.1 K/mm3 (1.8-7.7) H 03/04/20 06:06 Band Neutrophils # 0.0 K/mm3 03/04/20 06:06 Lymphocytes # (Manual) 0.9 K/mm3 (1.2-5.4) L 03/04/20 06:06 Abs React Lymphs (Man) 0.2 K/mm3 03/04/20 06:06 Monocytes # (Manual) 0.7 K/mm3 (0.0-0.8) 03/04/20 06:06 Eosinophils # (Manual) 0.2 K/mm3 (0.0-0.4) 03/04/20 06:06 Basophils # (Manual) 0.0 K/mm3 (0.0-0.1) 03/04/20 06:06 Metamyelocytes # 0.2 K/mm3 03/04/20 06:06 Myelocytes # 0.0 K/mm3 03/04/20 06:06 Promyelocytes # 0.0 K/mm3 03/04/20 06:06 Blast Cells # 0.0 K/mm3 03/04/20 06:06 WBC Morphology Not Reportable 03/04/20 06:06 Hypersegmented Neuts Not Reportable 03/04/20 06:06 Hyposegmented Neuts Not Reportable 03/04/20 06:06 Hypogranular Neuts Not Reportable 03/04/20 06:06 Smudge Cells Not Reportable 03/04/20 06:06 Toxic Granulation Not Reportable 03/04/20 06:06 Toxic Vacuolation Not Reportable 03/04/20 06:06 Dohle Bodies Not Reportable 03/04/20 06:06 Pelger-Huet Anomaly Not Reportable 03/04/20 06:06 Mian Rods Not Reportable 03/04/20 06:06 Platelet Estimate Consistent w auto 03/04/20 06:06 Clumped Platelets Not Reportable 03/04/20 06:06 Plt Clumps, EDTA Not Reportable 03/04/20 06:06 Large Platelets Not Reportable 03/04/20 06:06 Giant Platelets Not Reportable 03/04/20 06:06 Platelet Satelliting Not Reportable 03/04/20 06:06 Plt Morphology Comment Not Reportable 03/04/20 06:06 RBC Morphology Normal 03/04/20 06:06 Dimorphic RBCs Not Reportable 03/04/20 06:06 Polychromasia Not Reportable 03/04/20 06:06 Hypochromasia Not Reportable 03/04/20 06:06 Poikilocytosis Not Reportable 03/04/20 06:06 Anisocytosis Not Reportable 03/04/20 06:06 Microcytosis Not Reportable 03/04/20 06:06 Macrocytosis Not Reportable 03/04/20 06:06 Spherocytes Not Reportable 03/04/20 06:06 Pappenheimer Bodies Not Reportable 03/04/20 06:06 Sickle Cells Not Reportable 03/04/20 06:06 Target Cells Not Reportable 03/04/20 06:06 Tear Drop Cells Not Reportable 03/04/20 06:06 Ovalocytes Not Reportable 03/04/20 06:06 Helmet Cells Not Reportable 03/04/20 06:06 Weiss-Carmichaels Bodies Not Reportable 03/04/20 06:06 [place] Rings Not Reportable 03/04/20 06:06 Nunu Cells Not Reportable 03/04/20 06:06 Bite Cells Not Reportable 03/04/20 06:06 Crenated Cell Not Reportable 03/04/20 06:06 Elliptocytes Not Reportable 03/04/20 06:06 Acanthocytes (Spur) Not Reportable 03/04/20 06:06 Rouleaux Not Reportable 03/04/20 06:06 Hemoglobin C Crystals Not Reportable 03/04/20 06:06 Schistocytes Not Reportable 03/04/20 06:06 Malaria parasites Not Reportable 03/04/20 06:06 Jesus Bodies Not Reportable 03/04/20 06:06 Hem Pathologist Commnt No 03/04/20 06:06 D-Dimer 1170.89 ng/mlDDU (0-234) H 03/05/20 16:48 ABG pH 7.439 pH Units (7.350-7.450) 03/06/20 09:40 POC ABG pCO2 40.0 mmHg (32.0-48.0) 03/01/20 08:53 ABG pCO2 36.8 mm Hg 03/06/20 09:40 POC ABG pO2 71.9 mmHg (83-108) L 03/01/20 08:53 ABG pO2 77.4 mm Hg (80.0-90.0) L 03/06/20 09:40 POC ABG HCO3 28.0 03/01/20 08:53 ABG HCO3 24.4 mmol/L (20.0-26.0) 03/06/20 09:40 ABG O2 Saturation 96.0 % (95.0-99.0) 03/06/20 09:40 ABG O2 Content 18.4 (0.0-44) 03/06/20 09:40 POC ABG Base Excess 4.0 03/01/20 08:53 ABG Base Excess 0.5 mmol/L (-2.0-3.0) 03/06/20 09:40 ABG Hemoglobin 13.8 gm/dl (12.0-16.0) 03/06/20 09:40 ABG Oxyhemoglobin 94.1 (94-98) 03/01/20 08:53 ABG Carboxyhemoglobin 1.1 % (0.0-5.0) 03/06/20 09:40 ABG Methemoglobin 0.4 % (0.0-1.5) 03/06/20 09:40 ABG Sodium 139.8 mmol/L (136.0-145.0) 03/01/20 08:53 ABG Potassium 3.9 mmol/L (3.40-4.50) 03/01/20 08:53 ABG Chloride 105.0 mmol/L (98-107) 03/01/20 08:53 ABG Glucose 147 mg/dL (65-95) H 03/01/20 08:53 Oxyhemoglobin 94.5 % (95.0-99.0) L 03/06/20 09:40 Carboxyhemoglobin 0.2 (0.5-1.5) L 03/01/20 08:53 FiO2 100 % 03/06/20 09:40 Sodium 136 mmol/L (137-145) L 03/13/20 07:23 Potassium 3.6 mmol/L (3.6-5.0) 03/13/20 07:23 Chloride 101.3 mmol/L (98-107) 03/13/20 07:23 Carbon Dioxide 27 mmol/L (22-30) 03/13/20 07:23 Anion Gap 11 mmol/L 03/13/20 07:23 BUN 20 mg/dL (7-17) H 03/13/20 07:23 Creatinine 0.5 mg/dL (0.6-1.2) L 03/13/20 07:23 Estimated GFR > 60 ml/min 03/13/20 07:23 BUN/Creatinine Ratio 40 % 03/13/20 07:23 Glucose 88 mg/dL (65-100) 03/13/20 07:23 POC Glucose 99 mg/dL (70-105) 03/21/20 07:13 Lactic Acid 1.00 mmol/L (0.7-2.0) 02/24/20 14:31 Calcium 8.9 mg/dL (8.4-10.2) 03/13/20 07:23 Ferritin 319.4 ng/mL (10.0-200.0) H 03/10/20 15:34 Total Bilirubin 0.20 mg/dL (0.1-1.2) 03/13/20 07:23 Direct Bilirubin < 0.2 mg/dL (0-0.2) 03/12/20 10:19 Indirect Bilirubin 0.0 mg/dL 03/12/20 10:19 AST 23 units/L (5-40) 03/13/20 07:23 ALT 51 units/L (7-56) 03/13/20 07:23 Alkaline Phosphatase 66 units/L (35-129) 03/13/20 07:23 Lactate Dehydrogenase 619 units/L (91-180) H 03/05/20 16:48 Troponin T < 0.010 ng/mL (0.00-0.029) 02/28/20 16:03 C-Reactive Protein 0.30 mg/dL (0.00-1.30) 03/10/20 15:34 NT-Pro-B Natriuret Pep 47.67 pg/mL (0-450) 03/02/20 16:51 Total Protein 6.1 g/dL (6.3-8.2) L 03/13/20 07:23 Albumin 3.1 g/dL (3.9-5) L 03/13/20 07:23 Albumin/Globulin Ratio 1.0 % 03/13/20 07:23 Lipase 68 units/L (13-60) H 03/14/20 04:40 Procalcitonin < 0.05 ng/mL (<0.15) 02/25/20 14:21 Arterial Blood Glucose 147 mg/dL (65-95) H 03/01/20 08:53 Arterial Blood Ionized Calcium 4.7 mg/dL (4.6-5.3) 03/01/20 08:53 Urine Color Yellow (Yellow) 02/24/20 Unknown Urine Turbidity Clear (Clear) 02/24/20 Unknown Urine pH 6.0 (5.0-7.0) 02/24/20 Unknown Ur Specific [place] 1.023 (1.003-1.030) 02/24/20 Unknown Urine Protein 100 mg/dl mg/dL (Negative) 02/24/20 Unknown Urine Glucose (UA) Neg mg/dL (Negative) 02/24/20 Unknown Urine Ketones Neg mg/dL (Negative) 02/24/20 Unknown Urine Blood Neg (Negative) 02/24/20 Unknown Urine Nitrite Neg (Negative) 02/24/20 Unknown Urine Bilirubin Neg (Negative) 02/24/20 Unknown Urine Urobilinogen 2.0 mg/dL (<2.0) 02/24/20 Unknown Ur Leukocyte Esterase Neg (Negative) 02/24/20 Unknown Urine WBC (Auto) 4.0 /HPF (0.0-6.0) 02/24/20 Unknown Urine RBC (Auto) 2.0 /HPF (0.0-6.0) 02/24/20 Unknown U Epithel Cells (Auto) 3.0 /HPF (0-13.0) 02/24/20 Unknown Urine Bacteria (Auto) 1+ /HPF (Negative) 02/24/20 Unknown Urine Mucus 1+ /HPF 02/24/20 Unknown Coronavirus (PCR) Positive (Negative) A 02/26/20 10:45 SARS-CoV-2 IgG Ab Reactive (NonReactive) A 02/28/20 16:03 - Diagnostic Impressions Diagnostic Impressions: Echocardiogram 03/01/20 09:12 Transthoracic Echocardiogram Indication: Eval EF; PA HTN BP: 121/78 HR: 90 Conclusions *Global left ventricular systolic function is normal. *The estimated ejection fraction is 60-65%. *The right ventricular global systolic function is normal. *There is no evidence of aortic regurgitation. *There is trace of mitral regurgitation. *There is trace tricuspid regurgitation. *The right ventricular systolic pressure is calculated at 28 mmHg. *There is trace pulmonic regurgitation. Findings Left Ventricle: The left ventricular chamber size is normal. There is no left ventricular hypertrophy. Global left ventricular wall motion and contractility are within normal limits. Global left ventricular systolic function is normal. The estimated ejection fraction is 60-65%. There is an E to A reversal in the mitral valve flow pattern suggestive of diastolic dysfunction. Left Atrium: The left atrial chamber size is normal. Right Ventricle: The right ventricular cavity size is normal. The right ventricular global systolic function is normal. Right Atrium: The right atrial cavity size is normal. Aortic Valve: There is no evidence of aortic valve thickening. There is no evidence of aortic regurgitation. Mitral Valve: The mitral valve leaflets do not appear thickened. There is trace of mitral regurgitation. Tricuspid Valve: The tricuspid valve leaflets are normal. There is trace tricuspid regurgitation. The right ventricular systolic pressure is calculated at 28 mmHg. Pulmonic Valve: There is no evidence of pulmonic valve thickening. There is trace pulmonic regurgitation. Pericardium: There is no pericardial effusion. Aorta: The aorta appears normal. Venous: The inferior vena cava appears normal in size. Measurements Chambers 2D Name Value Normal Range IVSd (2D) 0.97 cm (0.6 - 1.1) LVPWd (2D) 1.05 cm (0.6 - 1.1) LVIDd (2D) 3.87 cm (3.7 - 5.6) LVIDs (2D) 2.41 cm (2 - 3.8) LV FS (2D) 37.69 % - EF Teichholz (2D) 68.47 % - Ao root diameter (2D) 2.92 cm (2 - 3.7) Volumes/Mass Name Value Normal Range LA ESV SP 4CH (A/L) 32.2 ml - LA ESV SP 2CH (A/L) 24.78 ml - LA ESV BP (A/L) 29.52 ml - LA ESV BP (A/L) index 16.68 ml/m2 - LA ESV SP 4CH (MOD) 29.62 ml - LA ESV SP 2CH (MOD) 23.68 ml - LA ESV BP (MOD) 27.57 ml - LA ESV BP (MOD) index 15.58 ml/m2 - Diastolic/Systolic Function Name Value Normal Range MV E-wave Vmax 0.59 m/sec - MV deceleration time 258.54 msec - MV A-wave Vmax 0.73 m/sec - MV E:A ratio 0.81 ratio - Aortic Valve Name Value Normal Range AV Vmax 1.33 m/sec - AV VTI 22.87 cm - AV peak gradient 7.09 mmHg - AV mean gradient 4.39 mmHg - LVOT diameter 1.52 cm - LVOT Vmax 1.22 m/sec - LVOT VTI 20.85 cm - LVOT peak gradient 5.96 mmHg - LVOT mean gradient 2.91 mmHg - SV LVOT 37.79 ml - VINEET (continuity Vmax) 1.66 cm2 - VINEET (continuity VTI) 1.65 cm2 - Ascending Ao 2.78 cm - Tricuspid Valve Name Value Normal Range TR Vmax 2.48 m/sec - TR peak gradient 25 mmHg - RAP 3 mmHg - RVSP 28 mmHg - IVC diameter 1.77 cm (1.2 - 2.3) Pulmonic Valve/Qp:Qs Name Value Normal Range PV Vmax 0.85 m/sec - PV peak gradient 2.9 mmHg - [place] end-diastolic Vmax 1.26 m/sec - PV acceleration time 144.62 msec - [place]/IV: Voiding Method Toilet IV Catheter Type [Left Hand] INT / Saline Lock IV Catheter Type [Right Peripheral IV Forearm] IV Catheter Type [Right Peripheral IV Antecubital] Active Medications - Current Medications Current Medications: Generic Name Dose Route Start Last Admin Trade Name Freq PRN Reason Stop Dose Admin Acetaminophen 650 mg 02/24/20 15:14 03/20/20 20:10 Acetaminophen 325 Mg Tab PO 650 mg Q4H PRN Administration Pain MILD(1-3)/Fever >100.5/DANGELO Albuterol 2.5 mg 02/24/20 15:14 Albuterol 2.5 Mg/3 Ml Nebu IH Q4HRT PRN Shortness Of Breath Ascorbic Acid 1,000 mg 02/29/20 23:45 03/20/20 22:22 Ascorbic Acid 500 Mg Tab PO 1,000 mg BID UTE Administration Benzonatate 100 mg 02/25/20 22:00 03/20/20 22:22 Benzonatate 100 Mg Cap PO 100 mg BID UTE Administration Cholecalciferol 5,000 unit 03/01/20 10:00 03/20/20 09:44 Cholecalciferol (Vit D3) 5,000 Unit Tab PO 5,000 unit DAILY UTE Administration Enoxaparin Sodium 40 mg 03/19/20 22:00 03/20/20 22:21 Enoxaparin 40 Mg/0.4 Ml Inj SUB-Q 40 mg QDAY@2200 UTE Administration Protocol Famotidine 10 mg 03/13/20 23:00 03/20/20 22:21 Famotidine 20 Mg Tab PO 10 mg BID UTE Administration Hydrocodone Bit/Homatropine Methylb 10 ml 02/26/20 15:00 03/20/20 17:36 Hydrocodone/Homatropine 5-1.5mg /5 Ml Oral Liqd Unit Dose PO 10 ml Q6H PRN Administration Cough Morphine Sulfate 2 mg 03/11/20 19:35 03/13/20 10:41 Morphine 2 Mg/1 Ml Inj IV 2 mg Q4H PRN Administration Pain, Moderate (4-6) Ondansetron HCl 4 mg 02/24/20 15:14 Ondansetron 4 Mg/2 Ml Inj IV Q8H PRN Nausea And Vomiting Sodium Chloride 10 ml 02/24/20 22:00 03/20/20 22:22 Sodium Chloride 0.9% 10 Ml Flush Syringe IV 10 ml BID UTE Administration Sodium Chloride 10 ml 02/24/20 15:14 Sodium Chloride 0.9% 10 Ml Flush Syringe IV PRN PRN LINE FLUSH Tramadol HCl 50 mg 02/29/20 22:10 03/19/20 22:21 Tramadol 50 Mg Tab PO 50 mg Q6H PRN Administration Pain, Moderate (4-6) Nutrition/Malnutrition Assess - Dietary Evaluation Nutrition/Malnutrition Findings: Nutrition Notes Start: 03/02/20 12:47 Freq: Status: Active Protocol: Document 03/02/20 12:47 EN (Rec: 03/02/20 12:53 EN [id number]) Co-Sign 03/02/20 12:47 MK Nutrition Notes Need for Assessment generated from: LOS Initial or Follow up Brief Note Current Diagnosis Sepsis Other Pertinent Diagnosis COVID-19+, Pneu, acute respiratory failure Current Diet Cardiac [place] Body Weight (kg) 0 Subjective/Other Information Pt screened for LOS. Unable to reach pt by phone x2 for assessment. RN unsure of current PO intakes for today but states pt has not had any N/V/D. Per chart, 100% meal consumption consistently Nutrition Intervention Anticipated Discharge Needs: Cardiac diet Revisit per MD consult or patient Sign Off request:
[2020-03-21] MEDS: BENZONATATE 100 MG CAP PO SCH ×2 (09:45→21:34)
[2020-03-21] MEDS: CHOLECALCIFEROL (VIT D3) 5,000 UNIT TAB PO SCH (09:45)
[2020-03-21] MEDS: FAMOTIDINE 20 MG TAB PO SCH ×2 (09:45→21:34)
[2020-03-21] MEDS: ASCORBIC ACID 500 MG TAB PO SCH ×2 (09:45→21:34)
[2020-03-21] MEDS: HYDROcodone/HOMATROPINE 5-1.5MG /5 ML ORAL LIQD UNIT DOSE PO PRN (20:44)
[2020-03-21] MEDS: ACETAMINOPHEN 325 MG TAB PO PRN (20:44)
[2020-03-21] MEDS: ENOXAPARIN 40 MG/0.4 ML INJ SUB-Q SCH (21:34)
[2020-03-22] MEDS: FAMOTIDINE 20 MG TAB PO SCH (09:07)
[2020-03-22] MEDS: CHOLECALCIFEROL (VIT D3) 5,000 UNIT TAB PO SCH (09:07)
[2020-03-22] MEDS: ASCORBIC ACID 500 MG TAB PO SCH (09:07)
[2020-03-22] MEDS: BENZONATATE 100 MG CAP PO SCH (09:07)
--- NOTE | 2020-03-22 11:06 | Discharge Summary ---
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 care physician: ARCHITECTURE ANALYST Hospitalization Condition: Stable Disposition: [place]-[address] [facility] Core Measure Documentation - Palliative Care Palliative Care/ Comfort Measures: Not Applicable Exam - Constitutional Vitals: Temp Pulse Resp BP Pulse Ox 98.9 F 80 18 100/40 98 03/22/20 04:23 03/22/20 04:23 03/22/20 04:23 03/22/20 04:23 03/22/20 04:23 Plan Follow up with: TRICIA ROGERS MD [Primary Care Provider] - 7 Days
[2020-03-22] MEDS: ACETAMINOPHEN 325 MG TAB PO PRN (12:42)
[2020-03-22] MEDS: HYDROcodone/HOMATROPINE 5-1.5MG /5 ML ORAL LIQD UNIT DOSE PO PRN (12:42)
[2020-03-22 13:25] VITALS: BP 100/41
== END 2020-03-22 17:25 | disposition home or self-care (01) | DRG 871 ==
LOC: ED 11:27 → 3A 15:14 → CC1 03-04 18:06 → IMCU 03-08 15:20 → 3A 03-12 19:16
PROVIDERS: ADMIT Internal Medicine; ATTEND Internal Medicine
PROC: XW033E5 Introduction of Remdesivir Anti-infective into Peripheral Vein, Percutaneous Approach, New Technology Group 5 (ICD-10-PCS; principal; 2020-02-27)
DX: A41.9 Sepsis, unspecified organism (principal); U07.1 COVID-19; J18.9 Pneumonia, unspecified organism; J96.01 Acute respiratory failure with hypoxia; E66.2 Morbid (severe) obesity with alveolar hypoventilation; I50.30 Unspecified diastolic (congestive) heart failure; D72.829 Elevated white blood cell count, unspecified; I11.0 Hypertensive heart disease with heart failure; K29.00 Acute gastritis without bleeding; K21.9 Gastro-esophageal reflux disease without esophagitis; Z68.37 Body mass index [BMI] 37.0-37.9, adult; Z79.899 Other long term (current) drug therapy; Z79.891 Long term (current) use of opiate analgesic; Z79.01 Long term (current) use of anticoagulants
CPT/HCPCS: 36415; 36600; 71045; 71046; 71275; 80048; 80053; 80076; 81001; 82140; 82728; 82803; 82805; 82947; 82962; 83615; 83690; 83880; 84145; 84484; 85007; 85025; 85027; 85379; 86140; 87040; 93005; 93306; 93970; 94660; 94760; 96365; 96367; 96375; G0378; J0456; J0696; J1100; J1644; J1650; J1940; J2270; J2920; J2930; J7030; J7040; J7050; Q9967; U0003

== ENCOUNTER 2020-04-20 10:10 | Outpatient (CLI) | payer OTHER ==
[2020-04-20 10:59] LABS: Hematocrit 35.5 % (30.3-42.9); Mean Corpuscular HGB Conc 34 % (30-34); Mean Corpuscular Volume 92 fl (79-97); Platelet Count 232 K/mm3 (140-440); Red Blood Count 3.85 M/mm3 (3.65-5.03); Red Cell Distribution Width 15.9 % (13.2-15.2)
[2020-04-20 11:24] LABS: Alanine Aminotransferase 20 units/L (7-56); Albumin 4.3 g/dL (3.9-5); Blood Urea Nitrogen 14 mg/dL (7-17); Calcium 9.4 mg/dL (8.4-10.2); Chol/HDL Ratio 3.67 %; HDL Cholesterol 55 mg/dL (40-59); Hemolysis Index 3; LDL Cholesterol,Direct 150 mg/dL (50-130)
[2020-04-20 11:35] LABS: BUN/Creatinine Ratio 28
[2020-04-20 12:04] LABS: ABG Base Excess 0.2 mmol/L (-2.0-3.0); ABG HCO3 24.4 mmol/L (20.0-26.0); ABG Methemoglobin 0.5 % (0.0-1.5); ABG Oxygen Saturation 96.9 % (95.0-99.0); ABG PCO2 37.7 mm Hg; ABG PH 7.428 pH Units (7.350-7.450); ABG PO2 84.8 mm Hg (80.0-90.0)
--- NOTE | 2020-04-20 12:49 | XRay Report ---
CHEST 2 VIEWS INDICATION: FOLLOW UP ON PNEUMONIA. COMPARISON: 03/14/2020 FINDINGS: Support devices: None. Heart: Within normal limits. Lungs/pleura: Complete or near complete resolution of the previously described bilateral airspace opa cities is demonstrated. No consolidation, pleural effusion or pneumothorax. Additional findings: None. IMPRESSION: Complete or near complete resolution of the bilateral lung opacities. Essentially normal chest x-ray. Signer Name: Ed Diego Jr, MD Signed: 04/20/2020 12:44 PM Workstation Name: [id number]
== END 2020-04-20 10:11 | disposition home or self-care (01) ==
LOC: LAB 10:10
PROVIDERS: ATTEND Internal Medicine
DX: J18.9 Pneumonia, unspecified organism (principal)
CPT/HCPCS: 36415; 36600; 71046; 80053; 80061; 82550; 82728; 82803; 83615; 84436; 84443; 84484; 85027; 85379; 86140